=== PATIENT | female | born 1960 | race Caucasian/White ===

== ENCOUNTER 2016-12-19 01:11 | Observation (INO) | payer OTHER ==
[2016-12-19] MEDS ORDERED: Aspirin Low Dose CHEW TAB* 81 MG PO ONE (01:34)
[2016-12-19 02:11] LABS: Hematocrit 31 % (35-47); Hemoglobin 9.3 g/dl (12.0-16.0); Mean Corpuscular HGB Conc 30 g/dl (31-36); Mean Corpuscular Hemoglobin 21 pg (27-31); Mean Corpuscular Volume 71 fL (80-97); Mean Platelet Volume 9 um3 (7.4-10.4); Red Blood Count 4.38 10^6/ul (4.0-5.4); Red Cell Distribution Width 19 % (10.5-15); White Blood Count 8.4 10^3/ul (3.5-10.8)
[2016-12-19 02:19] LABS: Add Diff/Slide Review? Slide Review Added; Comments Flag Yes
[2016-12-19 02:35] LABS: Albumin 3.6 g/dL (3.2-5.2); BUN/Creatinine Ratio 24.4 (8-20); Calcium 9.1 mg/dL (8.6-10.3); EGFR African American 92.7 (>60); EGFR Non-African American 72.1 (>60); Globulin 3.2 g/dL (2-4); Potassium 3.5 mmol/L (3.5-5.0); Total Bilirubin 0.5 mg/dL (0.2-1.0); Total Protein 6.8 g/dL (6.4-8.9)
[2016-12-19 02:48] LABS: Troponin I 0.08 ng/mL (<0.04)
[2016-12-19] MEDS ORDERED: Iohexol 350* (CONTRAST) 500 ML MDV IV ONE (04:39)
[2016-12-19] MEDS ORDERED: Azithromycin IV(*) 500 MG in NS 0.9% 250 ML* 250 ML IVPB ONE (06:32)
[2016-12-19] MEDS ORDERED: cefTRIAXone(*) 1 GM in NS 0.9% 50 ML* 50 ML IVPB ONE (06:32)
--- NOTE | 2016-12-19 07:41 | RAD ---
INDICATION: Chest pain. COMPARISON: Comparison is made with prior study from February 03, 2016. TECHNIQUE: A portable view of the chest was obtained. FINDINGS: The heart appears mildly enlarged. There is mild mediastinal widening which appears unchanged from the prior exam. The lungs are underinflated and grossly clear. No pleural effusion is seen. IMPRESSION: MILD CARDIOMEGALY, UNCHANGED.
[2016-12-19] MEDS: Rivaroxaban TAB(*) 15 MG PO SCH ×3 (08:35→20:58)
--- NOTE | 2016-12-19 08:48 | ADMNOTE ---
Subjective Date of Service: 12/19/16 Interval History: ADMISSION HISTORY AND PHYSICAL EXAM: Allergies Allergy/AdvReac Type Severity Reaction Status Date / Time Buckwheat Allergy Intermediate Rash Verified 02/03/16 19:23 Dust Mite Extract Allergy Intermediate Headache Verified 02/03/16 19:23 Home Medications Medication Instructions Recorded Confirmed Type Lisinopril 10 mg PO DAILY 07/17/14 12/19/16 History Metoprolol Succinate [Toprol Xl] 50 mg PO BID 07/17/14 12/19/16 History Naproxen TAB* [Naprosyn 250 mg 500 mg PO BID PRN 02/03/16 12/19/16 History TAB*] Furosemide [Lasix] 80 mg PO AC #30 tab 02/06/16 12/19/16 Rx Ranitidine TAB (NF) [Zantac TAB 300 mg PO BEDTIME 12/19/16 12/19/16 History (NF)] HPI: The patient was in her usual state of health until about midnight when she developed chest pain, some SOB. She has had a dry cough all winter, no change. No pleuritic component. She called 911. She does not have O2 at home. She used CPAP many years ago but states her machine is very old. She had an appt with the sleep lab this month. She is always sedentary but more so since her patella injury last year. No calf pain or visible enlargement. Family History: Findings - Father of ?PR, mother had HTN Social History: Findings - No alcohol or tobacco use. Lives with her brother Ken Mariano, who is her SDM Past Medical History: Findings - MO, LUIS ANTONIO, LBBB, PE 2004, HTN, GERD, chronic edema, hernia [id number], cholecystectomy, tonsillectomy, Review of Systems - Measurements Intake and Output: Intake and Output Last 24 Hours 12/17/16 12/18/16 12/19/16 12/20/16 06:59 06:59 06:59 06:59 Weight 350 lb - Review of Systems Constitutional Symptoms: Negative: Weight Gain, Weight Loss, Weakness, Fatigue, Fever, Night Sweats, Unexplained Falls, Other Dermatology: Positive: Normal HEENT: Positive: Normal Eyes: Positive: Normal Thyroid: Positive: Normal Pulmonary: Positive: Cough, Shortness of Breath, Other - LUIS ANTONIO Cardiology: Positive: Chest Pain Gastroenterology: Positive: Normal Genital - Urinary: Positive: Normal Genitourinay - Female: Positive: Other - menometrorrhagia, 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 Musculoskeletal: Positive: Joint Pain Endocrinology: Positive: Obesity Hematologic/Lymphatic: Positive: Anemia Neurology: Positive: Normal Psychiatry: Positive: Normal Allergic/Immunologic: Negative: Hx Anaphylaxis, Hx Angioedema, Hx Environmental, Hx Seasonal, Athsma, Hx HIV, Immunocompromise, Swollen Glands LymphNodes, Other Objective Active Medications: Rivaroxaban (Xarelto(*)) 15 mg PO BID TRINITY Last Admin: 12/19/16 08:35 Dose: 15 mg Vital Signs 12/19/16 12/19/16 12/19/16 01:17 01:27 01:28 Temperature 97.3 F Pulse Rate 118 63 Respiratory 20 22 Rate Blood Pressure 129/78 160/64 160/64 (mmHg) O2 Sat by Pulse 100 84 Oximetry 12/19/16 12/19/16 12/19/16 01:30 02:00 02:30 Temperature Pulse Rate 92 80 78 Respiratory 25 22 20 Rate Blood Pressure 148/61 139/65 91/75 (mmHg) O2 Sat by Pulse 95 97 95 Oximetry 12/19/16 12/19/16 12/19/16 03:00 03:30 04:00 Temperature Pulse Rate 97 84 83 Respiratory 24 18 18 Rate Blood Pressure 102/70 103/54 106/66 (mmHg) O2 Sat by Pulse 90 94 96 Oximetry 12/19/16 12/19/16 04:30 05:00 Temperature Pulse Rate 86 87 Respiratory 21 24 Rate Blood Pressure 116/52 105/60 (mmHg) O2 Sat by Pulse 97 92 Oximetry Oxygen Devices in Use Now: Nasal Cannula Appearance: Alert, partly up on ED stretcher. In good spirits. Looks comfortable. Ears/Nose/Mouth/Throat: Clear Oropharnyx, Mucous Membranes Moist Neck: NL Appearance and Movements; NL JVP, No Thyroid Enlargement, Masses Respiratory: Symmetrical Chest Expansion and Respiratory Effort, Clear to Auscultation, Clear to Percussion Abdominal: NL Sounds; No Tenderness; No Distention, No Hepatosplenomegaly, - Extremities: No Edema, No Clubbing, Cyanosis, - Skin: No Rash or Ulcers, No Nodules or Sclerosis, - Neurological: Alert and Oriented x 3, NL Sensation Result Diagrams: 12/19/16 02:00 12/19/16 02:00 Additional Lab and Data: Lab Results 12/19/16 12/19/16 12/19/16 Range/Units 02:00 02:00 02:00 WBC 8.4 (3.5-10.8) 10^3/ul RBC 4.38 (4.0-5.4) 10^6/ul Hgb 9.3 L (12.0-16.0) g/dl Hct 31 L (35-47) % MCV 71 L (80-97) fL MCH 21 L (27-31) pg MCHC 30 L (31-36) g/dl RDW 19 H (10.5-15) % Plt Count 239 (150-450) 10^3/ul MPV 9 (7.4-10.4) um3 Neut % (Auto) 71.2 (38-83) % Lymph % (Auto) 17.3 L (25-47) % [place] % (Auto) 7.1 (1-9) % Eos % (Auto) 3.7 (0-6) % Baso % (Auto) 0.7 (0-2) % Absolute Neuts (auto) 6.0 (1.5-7.7) 10^3/ul Absolute Lymphs (auto) 1.5 (1.0-4.8) 10^3/ul Absolute Monos (auto) 0.6 (0-0.8) 10^3/ul Absolute Eos (auto) 0.3 (0-0.6) 10^3/ul Absolute Basos (auto) 0.1 (0-0.2) 10^3/ul Absolute Nucleated RBC 0.03 10^3/ul Nucleated RBC % 0.3 Sodium 140 (133-145) mmol/L Potassium 3.5 (3.5-5.0) mmol/L Chloride 102 (101-111) mmol/L Carbon Dioxide 31 (22-32) mmol/L Anion Gap 7 (2-11) mmol/L BUN 20 (6-24) mg/dL Creatinine 0.82 (0.51-0.95) mg/dL Est GFR ( Amer) 92.7 (>60) Est GFR (Non-Af Amer) 72.1 (>60) BUN/Creatinine Ratio 24.4 H (8-20) Glucose 120 H (70-100) mg/dL Lactic Acid 1.6 (0.5-2.0) mmol/L Calcium 9.1 (8.6-10.3) mg/dL Total Bilirubin 0.50 (0.2-1.0) mg/dL AST 12 L (13-39) U/L ALT 11 (7-52) U/L Alkaline Phosphatase 57 (34-104) U/L Troponin I 0.08 H* (<0.04) ng/mL Total Protein 6.8 (6.4-8.9) g/dL Albumin 3.6 (3.2-5.2) g/dL Globulin 3.2 (2-4) g/dL Albumin/Globulin Ratio 1.1 (1-3) Assess/Plan/Problems-Billing Assessment: - Patient Problems (1) Pulmonary emboli Current Visit: Yes Status: Acute Code(s): I26.99 - OTHER PULMONARY EMBOLISM WITHOUT ACUTE COR PULMONALE SNOMED Code(s): 22008924 Comment: Start rivaroxaban, likely will need for life as this is second unprovoked episode, doubt she will become significantly less sedentary in the future. Likely chronic PE, has dilated PA. Echo 12/20. (2) HTN (hypertension) Current Visit: No Status: Chronic Priority: Medium Code(s): I10 - ESSENTIAL (PRIMARY) HYPERTENSION SNOMED Code(s): 53983474 Comment: Cont outpatient meds (3) Morbid obesity Current Visit: Yes Status: Acute Code(s): E66.01 - MORBID (SEVERE) OBESITY DUE TO EXCESS CALORIES SNOMED Code(s): 280737535 Comment: BMI 64.0. Pt has appt with bariatric surgeon in [place]. (4) LUIS ANTONIO (obstructive sleep apnea) Current Visit: Yes Status: Acute Code(s): G47.33 - OBSTRUCTIVE SLEEP APNEA ( ADULT) (PEDIATRIC) SNOMED Code(s): 97442928 Comment: I encouraged pt to keep her appt at the sleep lab this month.
--- NOTE | 2016-12-19 08:51 | RAD ---
INDICATION: Pleuritic chest pain. COMPARISON: Comparison is made with a prior CT angiogram of the chest from October 21, 2015. TECHNIQUE: A CT angiogram of the chest was performed with intravenous following intravenous injection of 88 ml of Omnipaque 350 nonionic contrast. Contiguous axial sections were obtained from the lung apices through the lung bases. Images were reconstructed in the coronal and sagittal planes. FINDINGS: There is enlargement of the central pulmonary arteries suggestive of pulmonary artery hypertension. This has progressed from the prior study. In addition, there are intraluminal filling defects in the distal right main, right interlobar artery, right upper lobe segmental arteries and several bilateral lower lobe subsegmental arteries. There are also filling defects within the right middle lobe segmental arteries. These findings would be consistent with multiple bilateral pulmonary emboli. The study is limited due to the patient's body habitus and beam hardening artifact. The heart is within normal limits in size. No pericardial effusion is present. The thoracic aorta is normal in caliber and demonstrates homogeneous contrast opacification. No significant enlarged mediastinal or hilar lymph nodes are seen. There is a nodule in the left thyroid lobe measuring 3.0 x 1.9 cm in size which appears slightly enlarged from the prior exam. Recommend a follow-up thyroid ultrasound for further evaluation. There are patchy infiltrates present right middle and lower lobes. No pleural effusion or pneumothorax is seen. A portion of the upper abdomen is visualized. The liver and spleen appear enlarged. The patient is status post gastric bypass surgery. No significant focal osseous abnormality is seen. The results of this exam were discussed with Dr. Anne. IMPRESSION: 1. MULTIPLE BILATERAL PULMONARY EMBOLI. 2. FINDINGS CONSISTENT WITH PULMONARY ARTERY HYPERTENSION. 3. SMALL RIGHT MIDDLE AND LOWER LOBE INFILTRATES. 4. NODULE IN THE LEFT THYROID LOBE. RECOMMEND A FOLLOW-UP THYROID ULTRASOUND FOR FURTHER EVALUATION. 5. HEPATOSPLENOMEGALY.
[2016-12-19] MEDS: Acetaminophen TAB* 325 MG PO PRN ×2 (10:33→20:57)
[2016-12-19] MEDS: Famotidine TAB* 20 MG PO SCH ×2 (10:33→20:57)
[2016-12-19] MEDS: Naproxen TAB* 250 MG PO SCH ×2 (10:33→20:57)
[2016-12-19] MEDS: Furosemide TAB* 40 MG PO SCH (10:33)
[2016-12-19] MEDS: Lisinopril TAB* 10 MG PO SCH (10:34)
[2016-12-19] MEDS: Metoprolol Succinate XL TAB* 25 MG PO SCH ×2 (10:34→20:57)
[2016-12-19] MEDS: Nystatin TOP POWDER* 15 GM BTL TOPICAL SCH (20:59)
[2016-12-19] MEDS ORDERED: Melatonin (NF) 3 MG TAB PO PRN (23:40)
[2016-12-20] MEDS: Rivaroxaban TAB(*) 15 MG PO SCH (08:28)
[2016-12-20] MEDS: Lisinopril TAB* 10 MG PO SCH (08:29)
[2016-12-20] MEDS: Metoprolol Succinate XL TAB* 25 MG PO SCH (08:29)
[2016-12-20] MEDS: Nystatin TOP POWDER* 15 GM BTL TOPICAL SCH (08:29)
[2016-12-20] MEDS: Acetaminophen TAB* 325 MG PO PRN (08:29)
[2016-12-20] MEDS: Famotidine TAB* 20 MG PO SCH (08:29)
[2016-12-20] MEDS: Furosemide TAB* 40 MG PO SCH (08:29)
[2016-12-20] MEDS: Naproxen TAB* 250 MG PO SCH (09:42)
--- NOTE | 2016-12-20 11:16 | ECHO ---
Patient: NICKIE BROWN [facility] Rec#: [id number] : 1960 Date: 12/20/2016 Age: 56y Height: 160.02 cm / 63.0 in Weight: 158.76 kg / 349.9 lbs Sex: F BSA: 2.45 Room#: 452 Admit Date#: 12/19/2016 Type: Inpatient Referring: Michele Anne MD Reading: Leidy Spencer MD Lung Gun Operator: Barbra Flaherty PABLO CC: Ken Monroe MD Transthoracic Echocardiogram Indication: PE BP: 90/47 HR: 72 Rhythm: NSR Findings History: PE, MO,LUIS ANTONIO,GERD,HTN,chronic edema. Study done with pt OOB in a chair. Technical Comments: The study is technically limited due to patient body habitus. Completed at 1052. The study is technically limited due to the patient's smoking history. Left Ventricle: The left ventricular chamber size is normal. Mild to moderate concentric left ventricular hypertrophy is observed. There is normal left ventricular systolic function. The estimated ejection fraction is 55-60%. closer to 55% Abnormal left ventricular diastolic function is observed. Left Atrium: The left atrial chamber size is normal. Right Ventricle: The right ventricular cavity size is normal. The right ventricular global systolic function is mildly reduced. Right Atrium: The right atrium is not well visualized. Aortic Valve: The aortic valve is trileaflet. There is no evidence of aortic regurgitation. There is no evidence of aortic stenosis. Mitral Valve: There is a trace of mitral regurgitation. There is no evidence of mitral stenosis. Tricuspid Valve: The tricuspid valve leaflets are normal. There is mild tricuspid regurgitation. There is evidence of mild pulmonary hypertension. There is no tricuspid stenosis. Pulmonic Valve: The pulmonic valve appears normal. There is mild pulmonic regurgitation. There is no pulmonic stenosis. Pericardium: A pericardial fat pad is visualized. Aorta: There is no dilatation of the ascending aorta. There is no dilatation of the aortic arch. There is no dilation of the aortic root. Venous: The venous system is not well visualized. Summary: There are no significant changes when compared to the previous study done on Conclusions The study is technically limited due to patient body habitus. Completed at 1052. The left ventricular chamber size is normal. Mild to moderate concentric left ventricular hypertrophy is observed. The estimated ejection fraction is 55-60%. closer to 55% Abnormal left ventricular diastolic function is observed. There is a trace of mitral regurgitation. There is mild tricuspid regurgitation. There is evidence of mild pulmonary hypertension. There is mild pulmonic regurgitation. The right ventricular global systolic function is mildly reduced. Measurements Name Value Normal Range RVIDd (AP) 2D 3.2 cm (0.9 - 2.6) RVDdMajor (2D) 3.7 cm (2.2 - 4.4) IVSd (2D) 1.4 cm (0.6 - 1) LVPWd (2D) 1.3 cm (0.6 - 1) LVIDd (2D) 3.8 cm (3.6 - 5.4) LVIDs (2D) 2 cm - LV FS (2D) 28 % (25 - 45) Aortic Annulus 1.7 cm (1.4 - 2.6) Ao root diameter (2D) 3.1 cm (2.1 - 3.5) Ascending Ao 2.9 cm (2.1 - 3.4) Aortic arch 2.2 cm (1.8 - 3.4) Descending Ao 0.9 cm - LA dimension (AP) 2D 3.2 cm (2.3 - 3.8) Name Value Normal Range MV E-wave Vmax 0.7 m/sec - MV deceleration time 263 msec - MV A-wave Vmax 1 m/sec - MV E:A ratio 0.63 ratio - LV septal e' Vmax 0.1 m/sec - LV lateral e' Vmax 0.1 m/sec - LV E:e' septal ratio 7 ratio - LV E:e' lateral ratio 7 ratio - Name Value Normal Range AV Vmax 1.5 m/sec - AV VTI 27.1 cm - AV peak gradient 9.22 mmHg - AV mean gradient 4.76 mmHg - Name Value Normal Range TR Vmax 2.9 m/sec - TR peak gradient 34 mmHg - RAP 8 mmHg - RVSP 42 mmHg - Name Value Normal Range PV Vmax 0.9 m/sec - PV peak gradient 3.12 mmHg -
[2016-12-20 11:31] VITALS: BP 104/76
--- NOTE | 2016-12-21 05:51 | DS ---
CC: Dr. Collado DISCHARGE SUMMARY: DATE OF ADMISSION: 12/19/16 DATE OF DISCHARGE: 12/20/16 HOSPITAL COURSE: This 56-year-old woman presenting with chest pain and shortness of breath, CTA showed multiple pulmonary emboli, which are chronic. Based on her clinical history as well, it was noted that her pulmonary artery was large in diameter. The patient was started on rivaroxaban. She was admitted to a telemetry unit. She did have a brief episode of bradycardia at 4 in the morning, heart rate down to 37. She was asymptomatic. I suspect this was related to her sleep apnea. She does have an appointment to go to the sleep lab later this month. I told her it was very important that she keep that appointment. She said she has an old CPAP machine at home, but does not know how to change the settings and was uncomfortable using it because of her lack of knowledge. The patient described very heavy menses, likely because of her iron deficiency. She has an appointment to see a child guidance counselor later this month as well. I started her on ferrous sulfate. She will stop her naproxen and use acetaminophen instead to control her back pain and knee pain. Echocardiogram showed only mild RV dysfunction and mild PHTN while the CT showed enlargement of the pulmonary artery. FINAL DIAGNOSES: 1. Multiple pulmonary emboli, likely chronic. I recommend indefinite use of anticoagulation as this is her second unprovoked episode. 2. Hypertension. Her lisinopril dose has been decreased to 5 mg daily. 3. Morbid obesity. 4. Osteoarthritis. The patient will use acetaminophen in place of naproxen. 5. Obstructive sleep apnea. The patient was strongly encouraged to keep her appointment with the sleep lab. DISCHARGE MEDICATIONS: 1. Nystatin powder apply to skin folds b.i.d. 2. Rivaroxaban 15 mg b.i.d. for 20 days and then 20 mg daily. 3. Lisinopril 5 mg daily. 4. Acetaminophen 1000 mg 2 to 3 times daily. 5. Metoprolol succinate 50 mg b.i.d. 6. Furosemide 80 mg daily before a meal. 7. Ranitidine 300 mg at h.s. 8. Ferrous gluconate 240 mg daily. [id number]/[facility] #: [id number] [facility]
== END 2016-12-20 14:50 | disposition home or self-care (01) ==
LOC: ED 01:11 → MEDTELE 08:55
PROVIDERS: ADMIT Internal Medicine; ATTEND Internal Medicine
DX: I26.99 Other pulmonary embolism without acute cor pulmonale (principal); I10 Essential (primary) hypertension; E66.01 Morbid (severe) obesity due to excess calories; G47.33 Obstructive sleep apnea (adult) (pediatric); M19.90 Unspecified osteoarthritis, unspecified site; R16.2 Hepatomegaly with splenomegaly, not elsewhere classified; E04.1 Nontoxic single thyroid nodule; I51.7 Cardiomegaly; R94.31 Abnormal electrocardiogram [ECG] [EKG]; Z79.899 Other long term (current) drug therapy
CPT/HCPCS: 36415; 71010; 71275; 80053; 83605; 83880; 84484; 85025; 93005; 93306; 94760; 99284; A9270-GY; G0378; J0456; J0696; Q9967

== ENCOUNTER 2016-12-23 12:39 | Emergency (ER) | payer OTHER ==
[2016-12-23 13:19] LABS: Hematocrit 30 % (35-47); Hemoglobin 9.1 g/dl (12.0-16.0); Mean Corpuscular HGB Conc 30 g/dl (31-36); Mean Corpuscular Hemoglobin 21 pg (27-31); Mean Corpuscular Volume 70 fL (80-97); Mean Platelet Volume 9 um3 (7.4-10.4); Red Blood Count 4.32 10^6/ul (4.0-5.4); Red Cell Distribution Width 20 % (10.5-15); White Blood Count 6.7 10^3/ul (3.5-10.8)
[2016-12-23 13:22] LABS: Comments Flag Yes
[2016-12-23 13:23] LABS: Add Diff/Slide Review? Slide Review Added
[2016-12-23 13:34] LABS: Albumin 3.6 g/dL (3.2-5.2); BUN/Creatinine Ratio 23.5 (8-20); Calcium 9.1 mg/dL (8.6-10.3); EGFR African American 94.1 (>60); EGFR Non-African American 73.1 (>60); Globulin 3.3 g/dL (2-4); Potassium 3.5 mmol/L (3.5-5.0); Total Bilirubin 0.6 mg/dL (0.2-1.0); Total Protein 6.9 g/dL (6.4-8.9)
--- NOTE | 2016-12-23 13:37 | RAD ---
INDICATION: Chest pain. COMPARISON: Comparison is made with a prior chest x-ray study from December 19, 2016. TECHNIQUE: A portable view of the chest was obtained. FINDINGS: The heart is mildly enlarged and unchanged from the prior exam. The lungs are underinflated and there is a small infiltrate at the right lung base. IMPRESSION: SMALL RIGHT BASILAR INFILTRATE.
[2016-12-23 13:47] LABS: Troponin I 0.04 ng/mL (<0.04)
[2016-12-23 14:02] LABS: T4 10.47 g/dL (6.09-12.23)
[2016-12-23 14:03] LABS: TSH (Thyroid Stimulating Horm) 0.79 mcIU/mL (0.34-5.60)
[2016-12-23 14:05] LABS: Eosinophils % 2 % (0-6); Hypochromasia 1+; Microcytosis 2+; Neutrophil % 82 % (38-83); Polychromasia 1+
[2016-12-23 14:09] LABS: Urine Bacteria Absent (Absent); Urine Bilirubin Negative (Negative); Urine Glucose Negative (Negative); Urine Nitrite Negative (Negative)
[2016-12-23 15:48] VITALS: BP 129/61
--- NOTE | 2016-12-23 17:17 | ED ---
Dae Parra Billy, scribed for Raffaele Ariza MD on 12/23/16 at 1328 . HPI Chest Pain - HPI Summary HPI Summary: Patient is 56 year-old female coming to [facility] for evaluation of midsternal and right anterior chest pain and SOB for the last 5 days. She reports pain severity 5/10 that is better with rest, worst with exertion. She is nauseated and has intermittent chils, but she denies any diaphoresis. Patient was discharged on 12/20/16 with a diagnosis of multiple, chronic pulmonary emboli. Patient states that for the last 2 days, she has not had access to her Xarelto and has not taken any. - History of Current Complaint Chief Complaint: EDChestPainROMI Time Seen by Provider: 12/23/16 12:43 Hx Obtained From: Patient Onset/Duration: Started Days Ago, Still Present Timing: Constant Initial Severity: Moderate Current Severity: Moderate Pain Intensity: 5 Pain Scale Used: 0-10 Numeric Chest Pain Location: Mid Sternal, Right Anterior Aggravating Factor(s): Exertion Alleviating Factor(s): Rest Associated Signs and Symptoms: Positive: Chest Pain, Shortness of Breath, Chills , Nausea. Negative: Diaphoresis - Additional Pertinent History Primary Care Physician: [id number] - Allergy/Home Medications Allergies/Adverse Reactions: Allergies Allergy/AdvReac Type Severity Reaction Status Date / Time Buckwheat Allergy Intermediate Rash Verified 02/03/16 19:23 Dust Mite Extract Allergy Intermediate Headache Verified 02/03/16 19:23 Home Medications: Home Medications Furosemide TAB* [Lasix TAB*] 80 mg PO DAILY 12/23/16 [History Confirmed 12/23/16 ] Metoprolol Tartrate TAB* [Lopressor TAB*] 100 mg PO DAILY 12/23/16 [History Confirmed 12/23/16] PMH/Surg Hx/FS Hx/Imm Hx Endocrine/Hematology History: Denies: Hx Diabetes Cardiovascular History: Reports: Hx Angina, Hx Embolism, Hx Hypertension, 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; tricuspid gisele disease, Other Cardiovascular Problems/Disorders - left BBB, chronic edema Denies: Hx Congestive Heart Failure Respiratory History: Reports: Hx Asthma, Hx Pulmonary Embolism, Hx Sleep Apnea, Other Respiratory Problems/Disorders - PE hx 2004 [facility] GI History: Reports: Hx Gall Bladder Disease - removed, Hx Gastroesophageal Reflux Disease, Other GI Disorders - stomach stapled History: Denies: Hx Renal Disease Musculoskeletal History: Reports: Hx Back Problems, Other Musculoskeletal History - chronic knee pain Sensory History: Reports: Hx Contacts or Glasses Denies: Hx Hearing Aid Opthamlomology History: Reports: Hx Contacts or Glasses Neurological History: Denies: Other Neuro Impairments/Disorders - Surgical History Surgery Procedure, Year, and Place: CARDIAC CATH, TONSILECTOMY, , RIGHT ABD HERNIA REPAIR X3, STOMACH STAPLING, CHOLECYSTECTOMY - Immunization History Date of Tetanus Vaccine: Unk Date of Influenza Vaccine: None Infectious Disease History: No Infectious Disease History: Denies: Traveled Outside the [place] in Last 30 Days - Family History Known Family History: Positive: Cardiac Disease - father with [place] and in 's, Hypertension - father - Social History Alcohol Use: Rare Substance Use Type: Reports: None Hx Tobacco Use: No Smoking Status (MU): Former Smoker Type: Cigarettes Have You Smoked in the Last Year: No Review of Systems Positive: Chills. Negative: Fever, Skin Diaphoresis Positive: Chest Pain Positive: Shortness Of Breath Positive: Nausea All Other Systems Reviewed And Are Negative: Yes Physical Exam - Summary Physical Exam Summary: VITAL SIGNS: Reviewed. GENERAL: Patient is an obese, well developed, and nourished female who is lying comfortable in the stretcher. Patient is not in any acute respiratory distress or respiratory distress. She is speaking in full sentences. HEAD AND FACE: Normocephalic EYES: PERRLA, EOMI x 2. EARS: Hearing grossly intact. MOUTH: Oropharynx within normal limits. NECK: Supple, trachea is midline, no adenopathy, no JVD, no carotid bruit. CHEST: Symmetric, no tenderness at palpation LUNGS: Clear to auscultation bilaterally. No wheezing or crackles. CVS: Regular rate and rhythm, S1 and S2 present, no murmurs or gallops appreciated. ABDOMEN: Soft, non-tender. Bowel sounds are normal. No abdominal abnormal pulsations. EXTREMITIES: Full ROM in all major joints, no edema, no cyanosis or clubbing. NEURO: Alert and oriented x 3. No acute neurological deficits. Speech is normal and follows commands. SKIN: Dry and warm Triage Information Reviewed: Yes Vital Signs On Initial Exam: Initial Vitals Temp Pulse Resp BP Pulse Ox 98.1 F 90 16 140/80 100 12/23/16 12:49 12/23/16 12:49 12/23/16 12:49 12/23/16 12:49 12/23/16 12:49 Vital Signs Reviewed: Yes - [place] Coma Scale Coma Scale Total: 15 Diagnostics - Vital Signs Vital Signs Temp Pulse Resp BP Pulse Ox 12/23/16 13:14 98.3 F 71 18 138/61 100 12/23/16 13:04 100 12/23/16 13:00 95 91 12/23/16 12:56 92 95 12/23/16 12:55 94 97 12/23/16 12:52 140/80 12/23/16 12:49 98.1 F 90 16 140/80 100 - Laboratory Lab Results: Lab Results 12/23/16 Range/Units 13:05 WBC 6.7 (3.5-10.8) 10^3/ul RBC 4.32 (4.0-5.4) 10^6/ul Hgb 9.1 L (12.0-16.0) g/dl Hct 30 L (35-47) % MCV 70 L (80-97) fL MCH 21 L (27-31) pg MCHC 30 L (31-36) g/dl RDW 20 H (10.5-15) % Plt Count 220 (150-450) 10^3/ul MPV 9 (7.4-10.4) um3 Neut % (Auto) 75.3 (38-83) % Lymph % (Auto) 13.9 L (25-47) % [place] % (Auto) 6.7 (1-9) % Eos % (Auto) 3.2 (0-6) % Baso % (Auto) 0.9 (0-2) % Absolute Neuts (auto) 5.1 (1.5-7.7) 10^3/ul Absolute Lymphs (auto) 0.9 L (1.0-4.8) 10^3/ul Absolute Monos (auto) 0.4 (0-0.8) 10^3/ul Absolute Eos (auto) 0.2 (0-0.6) 10^3/ul Absolute Basos (auto) 0.1 (0-0.2) 10^3/ul Absolute Nucleated RBC 0.02 10^3/ul Nucleated RBC % 0.2 Result Diagrams: 12/23/16 13:05 12/23/16 13:05 Lab Statement: Any lab studies that have been ordered have been reviewed, and results considered in the medical decision making process. - Radiology CXR Radiology Interpretation Completed By: Radiologist - Small right basilar infiltrate. - EKG 1319 EKG Interpretation: NSR 92 bpm, no ST elevation Re-Evaluation - Re-Evaluation First Eval Re-Evaluation Time: 17:07 Comment: Plan for discharge reviewed and discussed with the patient. Chest Pain Course/Dx - Course Assessment/Plan: Patient is 56 year-old female coming to [facility] for evaluation of midsternal and right anterior chest pain and SOB for the last 5 days. She reports pain severity 5/10 that is better with rest, worst with exertion. She is nauseated and has intermittent chils, but she denies any diaphoresis. Patient was discharged on 12/20/16 with a diagnosis of multiple, chronic pulmonary emboli. Patient states that for the last 2 days, she has not had access to her Xarelto and has not taken any. Test results show H&H of 9.1/30 which is similar to previous bloodwork on 12/19/16. CMP WNL except for chloride 99 , CO2 34, glucose 117, and troponin 0.04. UA negative for UTI. In the ED course , we noticed that the patient has decreased H&H compared to September 2015. Therefore, I decided to do rectal exam to see if she has any occult blood. Guaiac is negative at this point. I discussed the case with Dr. Cheung, and she believes the CP is secondary to the pulmonary embolus which currently is being treated with Xarelto. She has not been taking the Xarelto for the last 2 days but started again this morning, so Dr. Cheung recommended for the patient to be discharged home to follow up with PCP. I also repeated the second troponin , 0.04, which is much improved from 12/19/16. She is hemodynamically stable, A& Ox3. Patient care was discussed with the patient's daughter, who is a respiratory therapist at [facility]. It was explained that the patient has no criteria for admission. The daughter is comfortable with the plan for discharge as long as the patient has access to medications for the pulmonary embolus. I discussed all the findings and test results with the patient. Patient was instructed to return to the emergency room immediately if any of the symptoms return or worsens. Plan of care was discussed with the patient and understands and agrees. All questions were answered at patient satisfaction. There were no further complaints or concerns. Lung exam before discharge: CTA B /L. Good air exchange. No wheezing or crackles heard. CVS: S1 and S2 present. No murmurs appreciated. Patient is alert and oriented x 3. Patient is hemodynamically stable. 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 Cheung (hospitalist) recommends discharge. Discharge - Discharge Plan Condition: Stable Disposition: HOME Patient Education Materials: Pulmonary Embolism (GEN), Chest Pain (ED) Referrals: Alan Collado MD [Primary Care Provider] - The documentation as recorded by the Dae steve Billy accurately reflects the service I personally performed and the decisions made by , Raffaele Ariza MD.
== END 2016-12-23 17:27 | disposition home or self-care (01) ==
LOC: ED 12:39
DX: I26.99 Other pulmonary embolism without acute cor pulmonale (principal); R07.9 Chest pain, unspecified; R91.8 Other nonspecific abnormal finding of lung field; R06.02 Shortness of breath; R11.0 Nausea; R68.83 Chills (without fever); Z87.891 Personal history of nicotine dependence
CPT/HCPCS: 36415; 71010; 80053; 81003; 81015; 82270; 82550; 82553; 83605; 83735; 83880; 84436; 84443; 84484; 85025; 85730; 87077; 87086; 87186; 93005; 99283

== ENCOUNTER 2017-01-03 15:48 | Inpatient (IN) | payer OTHER ==
[2017-01-03 16:40] LABS: Hematocrit 24 % (35-47); Hemoglobin 7.2 g/dl (12.0-16.0); Mean Corpuscular HGB Conc 31 g/dl (31-36); Mean Corpuscular Hemoglobin 21 pg (27-31); Mean Platelet Volume 9 um3 (7.4-10.4); Red Blood Count 3.45 10^6/ul (4.0-5.4); Red Cell Distribution Width 20 % (10.5-15); White Blood Count 8.4 10^3/ul (3.5-10.8)
[2017-01-03 16:41] LABS: Comments Flag Yes; Mean Corpuscular Volume 68 fL (80-97)
[2017-01-03 16:52] LABS: Albumin 3.4 g/dL (3.2-5.2); BUN/Creatinine Ratio 16.9 (8-20); Calcium 9.1 mg/dL (8.6-10.3); EGFR African American 99.7 (>60); EGFR Non-African American 77.5 (>60); Potassium 3.2 mmol/L (3.5-5.0); Total Bilirubin 0.4 mg/dL (0.2-1.0); Total Protein 6.4 g/dL (6.4-8.9)
[2017-01-03 16:54] LABS: Troponin I 0.01 ng/mL (<0.04)
[2017-01-03] MEDS ORDERED: Iohexol 350* (CONTRAST) 500 ML MDV IV ONE (16:56)
--- NOTE | 2017-01-03 17:38 | RAD ---
HISTORY: Shortness of breath COMPARISONS: December 19, 2016 TECHNIQUE: Multiple contiguous axial CT scans of the chest were obtained after the administration of nonionic intravenous contrast, timed to the pulmonary arterial phase of contrast enhancement.. Coronal and sagittal multiplanar reformations are also submitted for review. FINDINGS: NECK AND THYROID: The thyroid gland is enlarged with a persistent left thyroid nodule. CHEST WALL: There is no lower cervical, axillary, or supraclavicular lymphadenopathy by size criteria. HEART AND PERICARDIUM: The heart is unremarkable. AORTA AND PULMONARY VASCULATURE: There is enlargement of the pulmonary artery with selective aorta. Again noted are multiple pulmonary arterial filling defects at the lobar and segmental branches. The clot. In a similar to slightly decreased compared to December 19, 2016. MEDIASTINUM: There is no mediastinal lymphadenopathy by size criteria. SURJIT: There is no hilar lymphadenopathy by size criteria. AIRWAY AND ESOPHAGUS: The airway is unremarkable, without endobronchial filling defect. The esophagus is grossly normal. LUNG PARENCHYMA: There is improved aeration of the right lung. There is a 0.5 cm nodule right lower lobe on axial image 32. This area was obscured on the previous examination. PLEURA: No pleural abnormalities are noted. UPPER ABDOMEN: There is post surgical change to the upper GI tract. The spleen appears enlarged. There is fatty infiltration of the liver. BONES AND SOFT TISSUES: No bone or soft tissue abnormalities are noted. OTHER: None. IMPRESSION: 1. AGAIN NOTED ARE MULTIPLE BILATERAL PULMONARY EMBOLI. THE CLOT BURDEN IS SIMILAR TO SLIGHTLY DECREASED COMPARED TO DECEMBER 19, 2016. 2. THERE IS ENLARGEMENT OF THE MAIN PULMONARY ARTERY SUGGESTIVE OF PULMONARY ARTERIAL HYPERTENSION. 3. 0.5 CM NODULE OF THE RIGHT LOWER LOBE. 4. SPLENOMEGALY. 5. FATTY INFILTRATION OF THE LIVER. 6. AGAIN NOTED IS LEFT THYROID NODULE. RECOMMEND CORRELATION WITH DEDICATED IMAGING OF THE THYROID IN THE NONACUTE SETTING. 7. THE RECOMMENDATIONS FOR FOLLOWUP AND MANAGEMENT OF AN INCIDENTALLY DETECTED PULMONARY NODULE GREATER THAN 4 MM BUT LESS THAN OR EQUAL TO 6 MM IN SIZE, IN A PATIENT WITHOUT A HISTORY OF MALIGNANCY, INCLUDE FOLLOWUP CT IN 12 MONTHS FOR A LOW-RISK PATIENT OR FOLLOWUP CT IN 6-12 MONTHS, THEN AGAIN AT 18-24 MONTHS FOR A HIGH RISK PATIENT. NOTES: SIZE = AVERAGE LENGTH AND WIDTH; HIGH RISK IS DEFINED A HISTORY OF SMOKING OR OTHER KNOW RISK FACTORS FOR LUNG CANCER; LOW RISK IS DEFINED MINIMAL OR ABSENT HISTORY OF SMOKING OR OTHER KNOWN RISK FACTORS. NODULES WITH A GROUND GLASS COMPONENT MAY REQUIRE LONGER FOLLOW UP TO EXCLUDE INDOLENT ADENOCARCINOMA.
[2017-01-03] MEDS ORDERED: Heparin VIAL(*) 5000 UNITS/ML VIAL (FIVE THOUSAND) IV SCH (19:00)
[2017-01-03] MEDS ORDERED: Heparin DRIP 25,000 UNITS(*) 25,000 UNITS/500 ML BAG ONE (19:16)
[2017-01-03] MEDS: Heparin DRIP 25,000 UNITS(*) 25,000 UNITS/500 ML BAG IV SCH (19:20)
--- NOTE | 2017-01-03 22:00 | ED ---
Tonia Parra Janilya, scribed for Lamonte Pérez MD on 01/03/17 at 1635 . Shortness of Breath - HPI Summary HPI Summary: A 56 y/o female came in to [facility] presenting w/ a gradual onset of constant SOB starting yesterday. 2 weeks ago pt was diagnosed w/ PE, for which she was given Xarelto. Her condition improved since taking the medication. However, since yesterday, pt has been having difficulty breathing w/o any other significant changes. Pt denies pedal edema. - History of Current Complaint Chief Complaint: EDShortnessOfBreath Time Seen by Provider: 01/03/17 15:58 Hx Obtained From: Patient Onset/Duration: Gradual Onset, Lasting Days, Still Present Timing: Constant Current Severity: Moderate Aggrevating Factors: Nothing Alleviating Factors: Nothing - Allergy/Home Medications Allergies/Adverse Reactions: Allergies Allergy/AdvReac Type Severity Reaction Status Date / Time Buckwheat Allergy Intermediate Rash Verified 02/03/16 19:23 Dust Mite Extract Allergy Intermediate Headache Verified 02/03/16 19:23 PMH/Surg Hx/FS Hx/Imm Hx Previously Healthy: Yes Endocrine/Hematology History: Denies: Hx Diabetes Cardiovascular History: Reports: Hx Angina, Hx Embolism, Hx Hypertension, 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; tricuspid gisele disease, Other Cardiovascular Problems/Disorders - left BBB, chronic edema Denies: Hx Congestive Heart Failure Respiratory History: Reports: Hx Asthma, Hx Pulmonary Embolism, Hx Sleep Apnea, Other Respiratory Problems/Disorders - PE hx 2005 [facility] GI History: Reports: Hx Gall Bladder Disease - removed, Hx Gastroesophageal Reflux Disease, Other GI Disorders - stomach stapled History: Denies: Hx Renal Disease Musculoskeletal History: Reports: Hx Back Problems, Other Musculoskeletal History - chronic knee pain Sensory History: Reports: Hx Contacts or Glasses Denies: Hx Hearing Aid Opthamlomology History: Reports: Hx Contacts or Glasses Neurological History: Denies: Other Neuro Impairments/Disorders - Surgical History Surgery Procedure, Year, and Place: CARDIAC CATH, TONSILECTOMY, , RIGHT ABD HERNIA REPAIR X3, STOMACH STAPLING, CHOLECYSTECTOMY - Immunization History Date of Tetanus Vaccine: Unk Date of Influenza Vaccine: None Infectious Disease History: No Infectious Disease History: Denies: Traveled Outside the [place] in Last 30 Days - Family History Known Family History: Positive: Cardiac Disease - father with [place] and in 80's, Hypertension - father - Social History Alcohol Use: Rare Substance Use Type: Reports: None Hx Tobacco Use: No Smoking Status (MU): Former Smoker Type: Cigarettes Have You Smoked in the Last Year: No Review of Systems Positive: Shortness Of Breath Negative: Edema - denies pedal edema All Other Systems Reviewed And Are Negative: Yes Physical Exam Triage Information Reviewed: Yes Vital Signs On Initial Exam: Initial Vitals Temp Pulse Resp BP Pulse Ox 98.5 F 80 20 154/120 98 01/03/17 15:53 01/03/17 15:53 01/03/17 15:53 01/03/17 15:53 01/03/17 15:53 Vital Signs Reviewed: Yes Appearance: Positive: Well-Appearing, No Pain Distress, Obese - morbidly Skin: Positive: Warm, Skin Color Reflects Adequate Perfusion, Dry Head/Face: Positive: Normal Head/Face Inspection Eyes: Positive: Normal ENT: Positive: Normal ENT inspection Neck: Positive: Supple, Nontender Respiratory/Lung Sounds: Positive: Clear to Auscultation, Breath Sounds Present Cardiovascular: Positive: RRR Abdomen Description: Positive: Nontender, Soft Bowel Sounds: Positive: Present Musculoskeletal: Positive: Normal Neurological: Positive: Normal Psychiatric: Positive: Affect/Mood Appropriate Diagnostics - Vital Signs Vital Signs Temp Pulse Resp BP Pulse Ox 01/03/17 15:57 98.3 F 76 20 119/65 99 01/03/17 15:53 98.5 F 80 20 154/120 98 - Laboratory Lab Results: Lab Results 01/03/17 01/03/17 01/03/17 Range/Units 16:20 16:20 16:20 WBC 8.4 (3.5-10.8) 10^3/ul RBC 3.45 L (4.0-5.4) 10^6/ul Hgb 7.2 L (12.0-16.0) g/dl Hct 24 L (35-47) % MCV 68 L (80-97) fL MCH 21 L (27-31) pg MCHC 31 (31-36) g/dl RDW 20 H (10.5-15) % Plt Count 238 (150-450) 10^3/ul MPV 9 (7.4-10.4) um3 Neut % (Auto) 74.6 (38-83) % Lymph % (Auto) 12.8 L (25-47) % [place] % (Auto) 8.5 (1-9) % Eos % (Auto) 3.4 (0-6) % Baso % (Auto) 0.7 (0-2) % Absolute Neuts (auto) 6.2 (1.5-7.7) 10^3/ul Absolute Lymphs (auto) 1.1 (1.0-4.8) 10^3/ul Absolute Monos (auto) 0.7 (0-0.8) 10^3/ul Absolute Eos (auto) 0.3 (0-0.6) 10^3/ul Absolute Basos (auto) 0.1 (0-0.2) 10^3/ul Absolute Nucleated RBC 0.02 10^3/ul Nucleated RBC % 0.2 APTT (26.0-36.3) seconds Sodium 137 (133-145) mmol/L Potassium 3.2 L (3.5-5.0) mmol/L Chloride 93 L (101-111) mmol/L Carbon Dioxide 38 H (22-32) mmol/L Anion Gap 6 (2-11) mmol/L BUN 13 (6-24) mg/dL Creatinine 0.77 (0.51-0.95) mg/dL Est GFR ( Amer) 99.7 (>60) Est GFR (Non-Af Amer) 77.5 (>60) BUN/Creatinine Ratio 16.9 (8-20) Glucose 137 H (70-100) mg/dL Lactic Acid 2.4 H* (0.5-2.0) mmol/L Calcium 9.1 (8.6-10.3) mg/dL Total Bilirubin 0.40 (0.2-1.0) mg/dL AST 13 (13-39) U/L ALT 10 (7-52) U/L Alkaline Phosphatase 52 (34-104) U/L Troponin I 0.01 (<0.04) ng/mL Total Protein 6.4 (6.4-8.9) g/dL Albumin 3.4 (3.2-5.2) g/dL Globulin 3.0 (2-4) g/dL Albumin/Globulin Ratio 1.1 (1-3) Blood Type Antibody Screen Crossmatch 01/03/17 01/03/17 Range/Units 16:20 16:22 WBC (3.5-10.8) 10^3/ul RBC (4.0-5.4) 10^6/ul Hgb (12.0-16.0) g/dl Hct (35-47) % MCV (80-97) fL MCH (27-31) pg MCHC (31-36) g/dl RDW (10.5-15) % Plt Count (150-450) 10^3/ul MPV (7.4-10.4) um3 Neut % (Auto) (38-83) % Lymph % (Auto) (25-47) % [place] % (Auto) (1-9) % Eos % (Auto) (0-6) % Baso % (Auto) (0-2) % Absolute Neuts (auto) (1.5-7.7) 10^3/ul Absolute Lymphs (auto) (1.0-4.8) 10^3/ul Absolute Monos (auto) (0-0.8) 10^3/ul Absolute Eos (auto) (0-0.6) 10^3/ul Absolute Basos (auto) (0-0.2) 10^3/ul Absolute Nucleated RBC 10^3/ul Nucleated RBC % APTT 38.4 H (26.0-36.3) seconds Sodium (133-145) mmol/L Potassium (3.5-5.0) mmol/L Chloride (101-111) mmol/L Carbon Dioxide (22-32) mmol/L Anion Gap (2-11) mmol/L BUN (6-24) mg/dL Creatinine (0.51-0.95) mg/dL Est GFR ( Amer) (>60) Est GFR (Non-Af Amer) (>60) BUN/Creatinine Ratio (8-20) Glucose (70-100) mg/dL Lactic Acid (0.5-2.0) mmol/L Calcium (8.6-10.3) mg/dL Total Bilirubin (0.2-1.0) mg/dL AST (13-39) U/L ALT (7-52) U/L Alkaline Phosphatase (34-104) U/L Troponin I (<0.04) ng/mL Total Protein (6.4-8.9) g/dL Albumin (3.2-5.2) g/dL Globulin (2-4) g/dL Albumin/Globulin Ratio (1-3) Blood Type A Positive Antibody Screen Negative Crossmatch See Detail Result Diagrams: 01/03/17 16:20 01/03/17 16:20 Lab Statement: Any lab studies that have been ordered have been reviewed, and results considered in the medical decision making process. - CT CTA Chest CT Interpretation: Positive (See Comments) - IMPRESSION: 1. AGAIN NOTED ARE MULTIPLE BILATERAL PULMONARY EMBOLI. THE CLOT BURDEN IS SIMILAR TO SLIGHTLY DECREASED COMPARED TO DECEMBER 19, 2016. 2. THERE IS ENLARGEMENT OF THE MAIN PULMONARY ARTERY SUGGESTIVE OF PULMONARY ARTERIAL HYPERTENSION. 3. 0.5 CM NODULE OF THE RIGHT LOWER LOBE. 4. SPLENOMEGALY. 5. FATTY INFILTRATION OF THE LIVER. 6. AGAIN NOTED IS LEFT THYROID NODULE. RECOMMEND CORRELATION WITH DEDICATED IMAGING OF THE THYROID IN THE NONACUTE SETTING. 7. THE RECOMMENDATIONS FOR FOLLOWUP AND MANAGEMENT OF AN INCIDENTALLY DETECTED PULMONARY NODULE GREATER THAN 4 MM BUT LESS THAN OR EQUAL TO 6 MM IN SIZE, IN A PATIENT WITHOUT A HISTORY OF MALIGNANCY, INCLUDE FOLLOWUP CT IN 12 MONTHS FOR A LOW-RISK PATIENT OR FOLLOWUP CT IN 6-12 MONTHS, THEN AGAIN AT 18-24 MONTHS FOR A HIGH RISK PATIENT. NOTES: SIZE = AVERAGE LENGTH AND WIDTH; HIGH RISK IS DEFINED A HISTORY OF SMOKING OR OTHER KNOW RISK FACTORS FOR LUNG CANCER; LOW RISK IS DEFINED MINIMAL OR ABSENT HISTORYOF SMOKING OR OTHER KNOWN RISK FACTORS. NODULES WITH A GROUND GLASS COMPONENT MAY REQUIRE LONGER FOLLOW UP TO EXCLUDE INDOLENT ADENOCARCINOMA. CT Interpretation Completed By: Radiologist Course/Dx - Course Course Of Treatment: Bettina Jain has had DUB for a few months which has worsened since being started on xarelto for a recent PE. She came in SOB, additional PE's were R/U with CTA and she was found to be significantly anemic. She has a new 'strain' pattern on her ecg and will likely continue to bleed, therefore I asked the hospitalists to see her. - Diagnoses Provider Diagnoses: Severe anemia, Dysfunctional uterine bleeding Discharge - Discharge Plan Condition: Stable Disposition: ADMITTED TO [facility] The documentation as recorded by the Tonia steve Janilya accurately reflects the service I personally performed and the decisions made by me, Lamonte Pérez MD.
[2017-01-03] MEDS ORDERED: Omeprazole CAP* 20 MG PO SCH (23:00)
--- NOTE | 2017-01-04 00:31 | HP ---
HOSPITAL MEDICINE HISTORY AND PHYSICAL: DATE OF ADMISSION: 01/03/17 PRIMARY CARE PHYSICIAN: Dr. Murillo. ATTENDING PHYSICIAN: Dr. Soria* (dictation provided by Whit Ordoñez NP) CHIEF COMPLAINT: Lightheadedness and shortness of breath. HISTORY OF PRESENT ILLNESS: Ms. Jain is a 56-year-old female with a past medical history of recent diagnosis of pulmonary embolism on 12/19/16 as well as obstructive sleep apnea not on CPAP, morbid obesity, hypertension, and abnormal uterine bleeding who presents today to the hospital with concern for lightheadedness and shortness of breath. Ms. Jain was originally diagnosed with a pulmonary embolism on 12/19/16. She was discharged the following day on Xarelto therapy. The patient states she was initially doing okay, but then as of yesterday she began to feel lightheaded and short of breath. She reports that she has had ongoing abnormal uterine bleeding for quite some time. She states this started in her 40s and she was managed at [facility] with hormone therapy. She states with that she had no menses. About 5 years ago, she states that she was told that she needed to discontinue her hormone therapy as she has "been on it too long." The patient states that she immediately had a return of heavy uterine bleeding. She describes to me having a period from mid September all the way through November with multiple soaked pads every 2 to 3 hours. She states that her period had finally ended by the time she came in with pulmonary embolism, but that as soon as she went on the Xarelto therapy, she again started to bleed heavily. She has been filling pads every 1 to 2 hours. She has been noting blood clots. She states that she went to see a provider at [facility], though she is not sure of the person's name. Per her report, the plan had been to start her on hormone therapy immediately and to have an IUD placed and a transvaginal ultrasound on 01/26/17. In the emergency room, Ms. Jain had anemia with hemoglobin of 7.2. Her last hemoglobin on 12/23/16 was 9.1. She has a lactic acid of 2.4. She has EKG, which shows concern for new T-wave inversions and V2 and V3, although there is some suggestion of mild T-wave inversion on previous EKGs. She has a stable blood pressure currently running 119/65. She is not tachycardic, but she is on home beta- jaki. PAST MEDICAL HISTORY: 1. Pulmonary embolism diagnosed on 12/19/16. 2. Abnormal uterine bleeding since age 40. 3. Obstructive sleep apnea, not on home CPAP. 4. Obesity. 5. GERD. 6. Hypertension. 7. Left bundle-branch block. 8. History of hernia repair in 1993. 9. Cholecystectomy. 10. Tonsillectomy. 11. History of at age 24. MEDICATIONS: 1. Tylenol 1000 mg p.o. t.i.d. 2. Ferrous gluconate 240 mg p.o. daily. 3. Nystatin topical b.i.d. 4. Ranitidine 300 mg p.o. at bedtime. 5. Rivaroxaban 20 mg p.o. daily. 6. Furosemide 80 mg p.o. daily. 7. Metoprolol tartrate 100 mg p.o. daily. ALLERGIES: BUCKWHEAT and DUST MITE EXTRACT. FAMILY HISTORY: The patient reports her father likely of an VT, but she is not sure. Her mother is alive and well and has hypertension. SOCIAL HISTORY: No report of tobacco, alcohol, or drug use. She states that her sister, Nya, will be the healthcare proxy. REVIEW OF SYSTEMS: A 14-point review of systems was completed with Ms. Jain and all those not mentioned above were negative. PHYSICAL EXAMINATION GENERAL: Ms. Jain is a morbidly obese female, lying in the bed. She is in no acute distress. VITAL SIGNS: Temperature 98.3, pulse rate 76, respiratory rate 20, O2 saturation 99% on 3 L nasal cannula, blood pressure 119/65. LUNGS: Clear to auscultation bilaterally with no accessory muscle use and good aeration. HEART: S1, S2. No murmur, rub, or gallop and regular. ABDOMEN: Soft, nontender with bowel sounds positive x4. EXTREMITIES: No cyanosis or edema. NEURO: She is alert and oriented x3. She moves all extremities equally. There is no facial asymmetry or focal weakness. Extraocular movements are intact. SKIN: Intact. LABORATORY DATA/DIAGNOSTIC STUDIES: Sodium 137, potassium 3.2, chloride 93, serum bicarbonate 38, BUN 13, creatinine 0.77, glucose 137, lactic acid 2.4. WBC 8.4, hemoglobin 7.2, hematocrit 24, and platelet count 238. PTT is pending. CTA chest/thorax today shows "again noted are multiple bilateral pulmonary emboli. The clot burden is similar to slightly decreased compared to 12/19/16. There is enlargement of the main pulmonary artery suggestive of pulmonary arterial hypertension. 0.5 cm nodule at the right lower lobe. Splenomegaly, fatty infiltration of the liver. Again noted is a left thyroid nodule. Recommend correlation with dedicated imaging of the thyroid" and also EKG shows sinus rhythm with question of new T-wave inversions on V2, V3. ASSESSMENT: Ms. Jain is a 56-year-old female with past medical history of pulmonary embolism started on Xarelto in December 2016 as well as abnormal uterine bleeding who presents today to the hospital with concern for new onset of lightheadedness and shortness of breath, found to be anemic with hemoglobin of 7. PLAN: Our plan is for inpatient admission as I expect her length of stay to be greater than 2 days with the followin. Lightheadedness and shortness of breath with new onset anemia. I suspect this is secondary to her abnormal uterine bleeding. Plans are for the patient to be seen by the printing press operator. They recommended that she have a transvaginal ultrasound for now and Dr. Ibarra will see her tomorrow. I am quite concerned that perhaps the patient has underlying carcinoma as she has abnormal uterine bleeding now in the setting of unprovoked pulmonary emboli. 3. Pulmonary embolism: Plan to switch over to heparin drip in the event that she needs operative intervention or other intervention that will require her to have anticoagulation discontinued for a short period of time. She may need an IVC filter. 4. Hypertension. Continue metoprolol and Lasix. 5. EKG changes. I suspect this is demand ischemia in the setting of anemia. I will cycle her troponins and monitor on the telemetry floor. She did have echocardiogram earlier this month when she came in with her pulmonary emboli. 6. Disposition to telemetry floor based on her EKG changes. 5. DVT prophylaxis with heparin drip. TIME SPENT: Approximately 75 minutes was spent on the admission of this patient , more than half the time spent with her at the bedside reviewing the events leading up to this hospitalization, performing the physical examination, and reviewing my plan of care. WHIT ORDOÑEZ NP CC: Dr. Murillo [id number]/[facility] #: [id number] DIVINA
[2017-01-04 06:22] LABS: Hematocrit 24 % (35-47); Hemoglobin 7.6 g/dl (12.0-16.0); Mean Corpuscular HGB Conc 31 g/dl (31-36); Mean Corpuscular Hemoglobin 22 pg (27-31); Mean Platelet Volume 9 um3 (7.4-10.4); Red Blood Count 3.38 10^6/ul (4.0-5.4); Red Cell Distribution Width 23 % (10.5-15); White Blood Count 8.4 10^3/ul (3.5-10.8)
[2017-01-04 06:29] LABS: Comments Flag Yes
[2017-01-04 06:30] LABS: Add Diff/Slide Review? Slide Review Added; Mean Corpuscular Volume 72 fL (80-97)
[2017-01-04] MEDS ORDERED: Furosemide TAB* 40 MG PO SCH (09:00)
[2017-01-04] MEDS ORDERED: Metoprolol Tartrate TAB* 100 MG TAB PO SCH (09:00)
[2017-01-04] MEDS: Omeprazole CAP* 20 MG PO SCH ×2 (11:01→16:16)
[2017-01-04] MEDS: Metoprolol Tartrate TAB* 25 MG PO SCH ×2 (11:04→22:12)
--- NOTE | 2017-01-04 11:20 | RAD ---
Indication: Abnormal uterine bleeding. Real-time sonography of the pelvis was performed. The uterus measures 9.2 cm in length x 4.9 cm AP x 6.1 cm in width. The endometrial echo measures 5 mm. There is a fibroid in the anterior right uterine body measuring 2.1 x 2.1 x 2.2 cm. The ovaries are not visualized. IMPRESSION: Fibroid in the anterior body of the uterus. Endometrial echo measures 5 mm. The ovaries are not well demonstrated.
[2017-01-04] MEDS: Heparin DRIP 25,000 UNITS(*) 25,000 UNITS/500 ML BAG IV SCH (12:26)
--- NOTE | 2017-01-04 12:37 | PN ---
Progress Note - Progress Note Note: Consultation note Reason for consult: vaginal bleeding with symptomatic anemia HPI: See office note from 01/01/17 for details of longer history and admission note by Whit Ordoñez NP. Pt says she bled more heavily over the weekend and was admitted to [facility] last evening with SOB. She was found to be anemic with Hb of 7 so she has received a blood transfusion. Received 2units overnight and just had a 3rd one started. She is able to ambulate w/out dizziness now. She reports continued moderate vaginal bleeding. See printed office note for complete Medical History Physical exam Gen: pt is lying in the chair, appears slightly out of breath but generally without distress Abd: obese, soft, non-tender Sono: TVUS today revealed only a 5mm endo strip and a small (<2cm) fibroid in the anterior wall of the uterus. Normal appearing ovaries. Labs: Hb 7.6/24 early this am (was 7.2/24 on arrival last evening.) Assessment: Pt is a 56yo perimenopausal woman with heavy vaginal bleeding. It likely is in part related to anovulatory bleeding associated with menopause exacerbated by initiation of anticoagulation therapy in light of her recent history of PEs. The ultrasound is not conclusive but is reassuring of a non- malignant cause since the endometrial lining is relatively thin. Plan: Recommend trying an anticoagulant other than xeralto, as it is more often associated with AUB. Will start pt on oral progestin therapy for immediate management of her bleeding. Pt already has a f/u appt schedule at our office and was planning sono and Mirena IUD insertion. We will try to move this appt up to do a Mirena insertion in the next few weeks. She will continue progestin therapy until that time. An endometrial biopsy can be done at the same time as Mirena insertion. Thank-you for this consult. Please call with any further questions or concerns.
[2017-01-04] MEDS: MEDROXYPROGESTERONE 5 MG PO SCH ×2 (14:02→22:12)
[2017-01-04 15:45] LABS: Hematocrit 24 % (35-47); Hemoglobin 7.5 g/dl (12.0-16.0)
[2017-01-04 15:49] LABS: Comments Flag Yes
[2017-01-04] MEDS: Acetaminophen TAB* 325 MG PO PRN (16:16)
--- NOTE | 2017-01-04 17:30 | PN ---
Progress Note - Progress Note Note: Surgery Note: S: pt is one wk s/p exc of skin tag of the Left inferior abdominal pannus by Dr. Campa. We were asked to see her for suture removal as she was unable to come to the office as scheduled today. No c/o re: the site. O: site as noted above is healing well; no s/sx of infection A/P: s/p skin tag excision of lower abd pannus; sutures removed w/ Tuan Alfredrha , MS3; pt suresh'd well; Bandaid placed and nsg informed. No f/u needed. (No path submitted)
--- NOTE | 2017-01-04 17:49 | PN ---
Subjective Date of Service: 01/04/17 Interval History: Ms. Jain continues to feel weak and lightheaded with standing. She continues to have profuse vaginal bleeding. She denies other complaint including chest pain, SOB, nausea, or abdominal pain. She is tolerating oral intake well. Objective Active Medications: Acetaminophen (Tylenol Tab*) 650 mg PO Q6H PRN PRN Reason: PAIN Last Admin: 01/04/17 16:16 Dose: 650 mg Heparin Sodium/Dextrose (Heparin Drip 25,000 Units(*)) 25,000 units in 500 mls @ 0 mls/hr IV .NO BOLUSES PROTOCOL TRINITY; Per Protocol PRN Reason: Protocol Last Admin: 01/04/17 12:26 Dose: 37 mls/hr Medroxyprogesterone Acetate (Provera Tab*) 5 mg PO BID [facility] Last Admin: 01/04/17 14:02 Dose: 5 mg Metoprolol Tartrate (Lopressor Tab*) 12.5 mg PO Q12HR [facility] Last Admin: 01/04/17 11:04 Dose: 12.5 mg Omeprazole (Prilosec Cap*) 20 mg PO BID AC [facility] Last Admin: 01/04/17 16:16 Dose: 20 mg Warfarin Sodium (Coumadin Tab(*)) 5 mg PO ONCE ONE PRN Reason: Protocol Stop: 01/04/17 18:01 Last Admin: 01/04/17 17:36 Dose: 5 mg Warfarin Sodium (Coumadin Tab(*)) 5 mg PO DAILY@1700 [facility] PRN Reason: Protocol Vital Signs 01/03/17 01/03/17 01/03/17 18:58 20:00 21:41 Temperature 98.7 F 98.1 F Pulse Rate 75 72 Respiratory 20 20 20 Rate Blood Pressure 117/65 91/47 (mmHg) O2 Sat by Pulse 100 100 Oximetry 01/03/17 01/03/17 01/03/17 21:54 23:20 23:48 Temperature 98.4 F 98.9 F 98.6 F Pulse Rate 76 70 72 Respiratory 20 16 18 Rate Blood Pressure 91/51 84/49 92/56 (mmHg) O2 Sat by Pulse 100 100 99 Oximetry 01/04/17 01/04/17 01/04/17 00:14 02:44 03:38 Temperature 97.4 F 98.5 F 98.3 F Pulse Rate 71 71 70 Respiratory 18 20 20 Rate Blood Pressure 106/52 105/45 120/57 (mmHg) O2 Sat by Pulse 99 100 99 Oximetry 01/04/17 01/04/17 01/04/17 07:26 11:45 15:07 Temperature 98.4 F 98.4 F 98.4 F Pulse Rate 75 71 73 Respiratory 20 18 22 Rate Blood Pressure 116/52 109/53 111/54 (mmHg) O2 Sat by Pulse 98 100 100 Oximetry 01/04/17 01/04/17 01/04/17 15:45 15:47 15:49 Temperature Pulse Rate 73 82 98 Respiratory Rate Blood Pressure 107/52 122/65 96/63 (mmHg) O2 Sat by Pulse Oximetry Oxygen Devices in Use Now: Nasal Cannula Appearance: Morbidly obese female sitting up in chair in NAD Respiratory: Symmetrical Chest Expansion and Respiratory Effort, Clear to Auscultation Cardiovascular: NL Sounds; No Murmurs; No JVD, No Edema Abdominal: NL Sounds; No Tenderness; No Distention Extremities: No Edema Skin: No Rash or Ulcers Neurological: Alert and Oriented x 3, NL Muscle Strength and Tone Nutrition: Taking PO's Result Diagrams: 01/04/17 15:38 01/04/17 05:40 Additional Lab and Data: Lab Results 01/03/17 01/03/17 01/03/17 Range/Units 16:20 16:20 16:20 WBC 8.4 (3.5-10.8) 10^3/ul RBC 3.45 L (4.0-5.4) 10^6/ul Hgb 7.2 L (12.0-16.0) g/dl Hct 24 L (35-47) % MCV 68 L (80-97) fL MCH 21 L (27-31) pg MCHC 31 (31-36) g/dl RDW 20 H (10.5-15) % Plt Count 238 (150-450) 10^3/ul MPV 9 (7.4-10.4) um3 Neut % (Auto) 74.6 (38-83) % Lymph % (Auto) 12.8 L (25-47) % Warren % (Auto) 8.5 (1-9) % Eos % (Auto) 3.4 (0-6) % Baso % (Auto) 0.7 (0-2) % Absolute Neuts (auto) 6.2 (1.5-7.7) 10^3/ul Absolute Lymphs (auto) 1.1 (1.0-4.8) 10^3/ul Absolute Monos (auto) 0.7 (0-0.8) 10^3/ul Absolute Eos (auto) 0.3 (0-0.6) 10^3/ul Absolute Basos (auto) 0.1 (0-0.2) 10^3/ul Absolute Nucleated RBC 0.02 10^3/ul Nucleated RBC % 0.2 APTT (26.0-36.3) seconds Sodium 137 (133-145) mmol/L Potassium 3.2 L (3.5-5.0) mmol/L Chloride 93 L (101-111) mmol/L Carbon Dioxide 38 H (22-32) mmol/L Anion Gap 6 (2-11) mmol/L BUN 13 (6-24) mg/dL Creatinine 0.77 (0.51-0.95) mg/dL Est GFR ( Amer) 99.7 (>60) Est GFR (Non-Af Amer) 77.5 (>60) BUN/Creatinine Ratio 16.9 (8-20) Glucose 137 H (70-100) mg/dL Lactic Acid 2.4 H* (0.5-2.0) mmol/L Calcium 9.1 (8.6-10.3) mg/dL Total Bilirubin 0.40 (0.2-1.0) mg/dL AST 13 (13-39) U/L ALT 10 (7-52) U/L Alkaline Phosphatase 52 (34-104) U/L Troponin I 0.01 (<0.04) ng/mL Total Protein 6.4 (6.4-8.9) g/dL Albumin 3.4 (3.2-5.2) g/dL Globulin 3.0 (2-4) g/dL Albumin/Globulin Ratio 1.1 (1-3) Blood Type Antibody Screen Crossmatch 01/03/17 01/03/17 Range/Units 16:20 16:22 WBC (3.5-10.8) 10^3/ul RBC (4.0-5.4) 10^6/ul Hgb (12.0-16.0) g/dl Hct (35-47) % MCV (80-97) fL MCH (27-31) pg MCHC (31-36) g/dl RDW (10.5-15) % Plt Count (150-450) 10^3/ul MPV (7.4-10.4) um3 Neut % (Auto) (38-83) % Lymph % (Auto) (25-47) % Warren % (Auto) (1-9) % Eos % (Auto) (0-6) % Baso % (Auto) (0-2) % Absolute Neuts (auto) (1.5-7.7) 10^3/ul Absolute Lymphs (auto) (1.0-4.8) 10^3/ul Absolute Monos (auto) (0-0.8) 10^3/ul Absolute Eos (auto) (0-0.6) 10^3/ul Absolute Basos (auto) (0-0.2) 10^3/ul Absolute Nucleated RBC 10^3/ul Nucleated RBC % APTT 38.4 H (26.0-36.3) seconds Sodium (133-145) mmol/L Potassium (3.5-5.0) mmol/L Chloride (101-111) mmol/L Carbon Dioxide (22-32) mmol/L Anion Gap (2-11) mmol/L BUN (6-24) mg/dL Creatinine (0.51-0.95) mg/dL Est GFR ( Amer) (>60) Est GFR (Non-Af Amer) (>60) BUN/Creatinine Ratio (8-20) Glucose (70-100) mg/dL Lactic Acid (0.5-2.0) mmol/L Calcium (8.6-10.3) mg/dL Total Bilirubin (0.2-1.0) mg/dL AST (13-39) U/L ALT (7-52) U/L Alkaline Phosphatase (34-104) U/L Troponin I (<0.04) ng/mL Total Protein (6.4-8.9) g/dL Albumin (3.2-5.2) g/dL Globulin (2-4) g/dL Albumin/Globulin Ratio (1-3) Blood Type A Positive Antibody Screen Negative Crossmatch See Detail Assess/Plan/Problems-Billing Assessment: Ms. Jain is a 56 yo female with a PMH of dysfunctional uterine bleeding with recent initiation of xarelto for bilateral PEs on 12/19/16 who was admitted on with symptomatic anemia. - Patient Problems (1) Pulmonary emboli Comment: PE's have decreased in size. Plan to switch from xarelto to warfarin with hep gtt bridging. Will need to be anticoagulated for life as this is her second unprovoked PE. (2) Anemia Comment: Secondary to AUB. Has had three units PRBC but Hgb remains at 7. Plan for 2 more units now. No evidence of other source of bleeding. Stool reported to be soft and brown, no unusual pain to suspect spontaneous bleed in retroperitoneum etc. (3) Abnormal uterine bleeding Comment: Continues to bleed significantly, wearing diaper which is being changed q4h with golf ball size clots. Appreciate consultation from Dr. Van. TVUS showed a normal endometrial stripe with only a small fibroid. Plan to start progesterone and arrange for placement of IUD, will try to have placed later this week with Dr. Ibarra (maybe Th or Wed). Will switch to warfarin as xarelto is associated with higher bleeding risk in AUB. (4) HTN (hypertension) Comment: Pt remains orthostatic. Continue furosemide and metoprolol. (5) GERD (gastroesophageal reflux disease) Comment: Continue BID omeprazole for now, on ranexa at home. (6) DVT prophylaxis Comment: heparin gtt (7) Full code status Status and Disposition: Inpatient with expected LOS > 2 days.
[2017-01-04] MEDS ORDERED: Warfarin TAB(*) 5 MG PO ONE (18:00)
[2017-01-04 22:01] LABS: Hematocrit 26 % (35-47); Hemoglobin 8.1 g/dl (12.0-16.0)
[2017-01-04 22:09] LABS: Comments Flag Yes
[2017-01-05] MEDS ORDERED: Heparin DRIP 25,000 UNITS(*) 25,000 UNITS/500 ML BAG ONE ×2 (02:05→17:55)
[2017-01-05] MEDS: Heparin DRIP 25,000 UNITS(*) 25,000 UNITS/500 ML BAG IV SCH ×2 (02:12→17:58)
[2017-01-05 06:00] LABS: Hematocrit 26 % (35-47); Hemoglobin 8.2 g/dl (12.0-16.0); Mean Corpuscular HGB Conc 32 g/dl (31-36); Mean Corpuscular Hemoglobin 24 pg (27-31); Mean Corpuscular Volume 75 fL (80-97); Mean Platelet Volume 9 um3 (7.4-10.4); Red Blood Count 3.42 10^6/ul (4.0-5.4); White Blood Count 7.1 10^3/ul (3.5-10.8)
[2017-01-05 06:01] LABS: Comments Flag Yes
[2017-01-05 06:02] LABS: Red Cell Distribution Width 23 % (10.5-15)
[2017-01-05 06:10] LABS: EGFR African American 117.1 (>60)
[2017-01-05] MEDS: Omeprazole CAP* 20 MG PO SCH ×2 (09:53→16:40)
[2017-01-05] MEDS: Metoprolol Tartrate TAB* 25 MG PO SCH ×2 (09:53→21:05)
[2017-01-05] MEDS: MEDROXYPROGESTERONE 5 MG PO SCH ×2 (09:53→21:04)
--- NOTE | 2017-01-05 10:51 | PN ---
Subjective Date of Service: 01/05/17 Interval History: patient reports she "feels a little better today". Denies SOB or CP. No fevers or chills. Reports she feels that her vaginal bleeding has increased compared to yesterday but states she has only gone through 1 pas since last evening. No abdominal pain. reports she has dysuria stating she was treated for a UTI 3 weeks ago and doesnt feel that it ever completely resolved. Denies urinary urgency or frequency. Objective Active Medications: Acetaminophen (Tylenol Tab*) 650 mg PO Q6H PRN PRN Reason: PAIN Last Admin: 01/04/17 16:16 Dose: 650 mg Heparin Sodium (Porcine) (Heparin Flush Picc/Ml/Cvc(*)) 1 ml FLUSH 0600,1800 [facility] PRN Reason: Protocol Last Admin: 01/05/17 05:25 Dose: 1 ml Heparin Sodium/Dextrose (Heparin Drip 25,000 Units(*)) 25,000 units in 500 mls @ 0 mls/hr IV .NO BOLUSES PROTOCOL [facility]; Per Protocol PRN Reason: Protocol Last Admin: 01/05/17 02:12 Dose: 37 mls/hr Medroxyprogesterone Acetate (Provera Tab*) 5 mg PO BID [facility] Last Admin: 01/05/17 09:53 Dose: 5 mg Metoprolol Tartrate (Lopressor Tab*) 12.5 mg PO Q12HR [facility] Last Admin: 01/05/17 09:53 Dose: 12.5 mg Omeprazole (Prilosec Cap*) 20 mg PO BID AC [facility] Last Admin: 01/05/17 09:53 Dose: 20 mg Warfarin Sodium (Coumadin Tab(*)) 5 mg PO DAILY@1700 [facility] PRN Reason: Protocol Vital Signs 01/04/17 01/04/17 01/04/17 11:45 15:07 15:45 Temperature 98.4 F 98.4 F Pulse Rate 71 73 73 Respiratory 18 22 Rate Blood Pressure 109/53 111/54 107/52 (mmHg) O2 Sat by Pulse 100 100 Oximetry 01/04/17 01/04/17 01/04/17 15:47 15:49 17:43 Temperature 98.2 F Pulse Rate 82 98 75 Respiratory 16 Rate Blood Pressure 122/65 96/63 131/57 (mmHg) O2 Sat by Pulse 100 Oximetry 01/04/17 01/04/17 01/04/17 19:29 20:00 20:33 Temperature 98.6 F 98.5 F Pulse Rate 75 70 Respiratory 24 20 17 Rate Blood Pressure 100/51 96/49 (mmHg) O2 Sat by Pulse 100 100 Oximetry 01/04/17 01/04/17 01/04/17 20:59 23:21 23:45 Temperature 98.1 F 98.3 F Pulse Rate 70 74 Respiratory 18 18 Rate Blood Pressure 100/58 104/46 98/54 (mmHg) O2 Sat by Pulse 100 97 Oximetry 01/05/17 01/05/17 01/05/17 00:43 02:26 03:48 Temperature 97.4 F 98.1 F 98.5 F Pulse Rate 79 79 87 Respiratory 20 18 20 Rate Blood Pressure 96/47 98/51 110/63 (mmHg) O2 Sat by Pulse 99 93 99 Oximetry 01/05/17 07:49 Temperature 98.3 F Pulse Rate 71 Respiratory 16 Rate Blood Pressure 112/56 (mmHg) O2 Sat by Pulse 100 Oximetry Oxygen Devices in Use Now: Nasal Cannula Appearance: 56 yo morbidly obese female sitting up in a chair A+O x3 in NAD Eyes: No Scleral Icterus, PERRLA Ears/Nose/Mouth/Throat: NL Teeth, Lips, Gums, Mucous Membranes Moist Neck: NL Appearance and Movements; NL JVP Respiratory: Symmetrical Chest Expansion and Respiratory Effort, Clear to Auscultation Cardiovascular: NL Sounds; No Murmurs; No JVD, RRR, No Edema Abdominal: NL Sounds; No Tenderness; No Distention, - - obese Extremities: No Edema, No Clubbing, Cyanosis Skin: No Rash or Ulcers, No Nodules or Sclerosis Neurological: Alert and Oriented x 3, NL Sensation, NL Muscle Strength and Tone Lines/Tubes/Other Access: Clean, Dry and Intact Peripheral IV Nutrition: Taking PO's Result Diagrams: 01/05/17 05:24 01/05/17 05:24 Additional Lab and Data: Lab Results 01/03/17 01/03/17 01/03/17 Range/Units 16:20 16:20 16:20 WBC 8.4 (3.5-10.8) 10^3/ul RBC 3.45 L (4.0-5.4) 10^6/ul Hgb 7.2 L (12.0-16.0) g/dl Hct 24 L (35-47) % MCV 68 L (80-97) fL MCH 21 L (27-31) pg MCHC 31 (31-36) g/dl RDW 20 H (10.5-15) % Plt Count 238 (150-450) 10^3/ul MPV 9 (7.4-10.4) um3 Neut % (Auto) 74.6 (38-83) % Lymph % (Auto) 12.8 L (25-47) % [place] % (Auto) 8.5 (1-9) % Eos % (Auto) 3.4 (0-6) % Baso % (Auto) 0.7 (0-2) % Absolute Neuts (auto) 6.2 (1.5-7.7) 10^3/ul Absolute Lymphs (auto) 1.1 (1.0-4.8) 10^3/ul Absolute Monos (auto) 0.7 (0-0.8) 10^3/ul Absolute Eos (auto) 0.3 (0-0.6) 10^3/ul Absolute Basos (auto) 0.1 (0-0.2) 10^3/ul Absolute Nucleated RBC 0.02 10^3/ul Nucleated RBC % 0.2 APTT (26.0-36.3) seconds Sodium 137 (133-145) mmol/L Potassium 3.2 L (3.5-5.0) mmol/L Chloride 93 L (101-111) mmol/L Carbon Dioxide 38 H (22-32) mmol/L Anion Gap 6 (2-11) mmol/L BUN 13 (6-24) mg/dL Creatinine 0.77 (0.51-0.95) mg/dL Est GFR ( Amer) 99.7 (>60) Est GFR (Non-Af Amer) 77.5 (>60) BUN/Creatinine Ratio 16.9 (8-20) Glucose 137 H (70-100) mg/dL Lactic Acid 2.4 H* (0.5-2.0) mmol/L Calcium 9.1 (8.6-10.3) mg/dL Total Bilirubin 0.40 (0.2-1.0) mg/dL AST 13 (13-39) U/L ALT 10 (7-52) U/L Alkaline Phosphatase 52 (34-104) U/L Troponin I 0.01 (<0.04) ng/mL Total Protein 6.4 (6.4-8.9) g/dL Albumin 3.4 (3.2-5.2) g/dL Globulin 3.0 (2-4) g/dL Albumin/Globulin Ratio 1.1 (1-3) Blood Type Antibody Screen Crossmatch 01/03/17 01/03/17 Range/Units 16:20 16:22 WBC (3.5-10.8) 10^3/ul RBC (4.0-5.4) 10^6/ul Hgb (12.0-16.0) g/dl Hct (35-47) % MCV (80-97) fL MCH (27-31) pg MCHC (31-36) g/dl RDW (10.5-15) % Plt Count (150-450) 10^3/ul MPV (7.4-10.4) um3 Neut % (Auto) (38-83) % Lymph % (Auto) (25-47) % [place] % (Auto) (1-9) % Eos % (Auto) (0-6) % Baso % (Auto) (0-2) % Absolute Neuts (auto) (1.5-7.7) 10^3/ul Absolute Lymphs (auto) (1.0-4.8) 10^3/ul Absolute Monos (auto) (0-0.8) 10^3/ul Absolute Eos (auto) (0-0.6) 10^3/ul Absolute Basos (auto) (0-0.2) 10^3/ul Absolute Nucleated RBC 10^3/ul Nucleated RBC % APTT 38.4 H (26.0-36.3) seconds Sodium (133-145) mmol/L Potassium (3.5-5.0) mmol/L Chloride (101-111) mmol/L Carbon Dioxide (22-32) mmol/L Anion Gap (2-11) mmol/L BUN (6-24) mg/dL Creatinine (0.51-0.95) mg/dL Est GFR ( Amer) (>60) Est GFR (Non-Af Amer) (>60) BUN/Creatinine Ratio (8-20) Glucose (70-100) mg/dL Lactic Acid (0.5-2.0) mmol/L Calcium (8.6-10.3) mg/dL Total Bilirubin (0.2-1.0) mg/dL AST (13-39) U/L ALT (7-52) U/L Alkaline Phosphatase (34-104) U/L Troponin I (<0.04) ng/mL Total Protein (6.4-8.9) g/dL Albumin (3.2-5.2) g/dL Globulin (2-4) g/dL Albumin/Globulin Ratio (1-3) Blood Type A Positive Antibody Screen Negative Crossmatch See Detail Microbiology and Other Data: Microbiology 01/04/17 20:45 Transfusion Reaction Culture - Preliminary Blood Bag Culture Under Incubation Transfusion Reaction Gram Stain - Final Assess/Plan/Problems-Billing Assessment: Ms. Jain is a 56 yo female with a PMH of dysfunctional uterine bleeding with recent initiation of xarelto for bilateral PEs on 12/19/16 who was admitted on with symptomatic anemia. - Patient Problems (1) Pulmonary emboli Comment: Per CTA, PE's have decreased in size. Xarelto was D/C'd and warfarin with hep gtt bridging was initiated on admission. Will need to be anticoagulated for life as this is her second unprovoked PE. - TTE 12/20/16 showing LVEF 55%, mildy reduced RV function - INR subtheraputic (2) Abnormal uterine bleeding Status: Acute Comment: Continues to bleed but slightly less than yesterday? Per nurse 1 large clot noted this am on pad. Appreciate consultation from Dr. Van. TVUS showed a normal endometrial stripe with only a small fibroid. Progesterone started 01/04, plan for placement of IUD, will try to have placed later this week with Dr. Ibarra ( maybe or Wed). Plan for warfarin as xarelto is associated with higher bleeding risk in AUB. (3) Anemia Comment: Secondary to AUB. Has had 5 units PRBC since admission - Hgb at 8 this am- up from 7. No evidence of other source of bleeding. Check stool for occult blood. VSS - (noted she is on BB) Check HH now and continue to trend NS @ 100 ml/hr (4) GERD (gastroesophageal reflux disease) Comment: Continue BID omeprazole for now, on ranexa at home. (5) HTN (hypertension) Comment: Pt was orthostatic. Plan to recheck orthostatic VS. Continue to hold furosemide and decreased dose of metoprolol. (6) DVT prophylaxis Comment: heparin gtt (7) Full code status Status and Disposition: Inpatient with expected LOS > 2 days.
[2017-01-05] MEDS ORDERED: NS 0.9% 1000 ML* 1,000 ML IV SCH (12:45)
[2017-01-05] MEDS: NS 0.9% 1000 ML* 1,000 ML IV SCH (13:00)
[2017-01-05 13:17] LABS: Hematocrit 27 % (35-47); Hemoglobin 8.6 g/dl (12.0-16.0)
[2017-01-05 13:25] LABS: Comments Flag Yes
[2017-01-05 14:28] LABS: Urine Bacteria Absent (Absent); Urine Bilirubin Negative (Negative); Urine Glucose 1+(50 mg/dL) (Negative); Urine Nitrite Negative (Negative)
[2017-01-05] MEDS: Warfarin TAB(*) 5 MG PO SCH (16:42)
[2017-01-05 18:26] LABS: Hematocrit 25 % (35-47)
[2017-01-05 18:32] LABS: Comments Flag Yes
[2017-01-06 01:24] LABS: Comments Flag Yes; Hematocrit 27 % (35-47); Hemoglobin 8.6 g/dl (12.0-16.0)
[2017-01-06] MEDS: NS 0.9% 1000 ML* 1,000 ML IV SCH (04:15)
[2017-01-06 06:05] LABS: Hematocrit 25 % (35-47); Hemoglobin 7.8 g/dl (12.0-16.0); Mean Corpuscular HGB Conc 32 g/dl (31-36); Mean Corpuscular Hemoglobin 24 pg (27-31); Mean Corpuscular Volume 76 fL (80-97); Mean Platelet Volume 9 um3 (7.4-10.4); Red Blood Count 3.25 10^6/ul (4.0-5.4); White Blood Count 6.2 10^3/ul (3.5-10.8)
[2017-01-06 06:13] LABS: Comments Flag Yes
[2017-01-06 06:14] LABS: Red Cell Distribution Width 22 % (10.5-15)
[2017-01-06 06:20] LABS: BUN/Creatinine Ratio 16.9 (8-20); Calcium 8.5 mg/dL (8.6-10.3); EGFR African American 135.6 (>60); EGFR Non-African American 105.4 (>60); Potassium 3.2 mmol/L (3.5-5.0)
[2017-01-06] MEDS: Metoprolol Tartrate TAB* 25 MG PO SCH ×3 (08:08→21:49)
[2017-01-06] MEDS: Omeprazole CAP* 20 MG PO SCH ×2 (08:08→16:41)
[2017-01-06] MEDS ORDERED: Potassium Chlor TAB* 20 MEQ TAB.ER PO ONE (08:31)
[2017-01-06] MEDS: MEDROXYPROGESTERONE 5 MG PO SCH ×2 (11:07→20:59)
[2017-01-06] MEDS: KCL 20 MEQ/100 ML IVPREMIX* 20 MEQ/100 ML BAG IV SCH ×2 (11:07→13:11)
[2017-01-06 12:09] LABS: Hematocrit 25 % (35-47); Hemoglobin 7.8 g/dl (12.0-16.0)
[2017-01-06 12:13] LABS: Comments Flag Yes
[2017-01-06] MEDS ORDERED: Heparin DRIP 25,000 UNITS(*) 25,000 UNITS/500 ML BAG ONE (13:03)
[2017-01-06] MEDS: Heparin DRIP 25,000 UNITS(*) 25,000 UNITS/500 ML BAG IV SCH (13:05)
--- NOTE | 2017-01-06 15:03 | PN ---
Subjective Date of Service: 01/06/17 Interval History: pt reports her vaginal bleeding has "really improved since yesterday" reporting only 1 pad change today. She denies SOB, CP or dizziness. Reports good appetite. No N/V/D. reports brown BMs, no noted bloody stool or dark stool. Objective Active Medications: Acetaminophen (Tylenol Tab*) 650 mg PO Q6H PRN PRN Reason: PAIN Last Admin: 01/04/17 16:16 Dose: 650 mg Heparin Sodium (Porcine) (Heparin Flush Picc/Ml/Cvc(*)) 1 ml FLUSH 0600,1800 [facility] PRN Reason: Protocol Last Admin: 01/06/17 05:22 Dose: Not Given Heparin Sodium/Dextrose (Heparin Drip 25,000 Units(*)) 25,000 units in 500 mls @ 0 mls/hr IV .NO BOLUSES PROTOCOL [facility]; Per Protocol PRN Reason: Protocol Last Admin: 01/06/17 13:05 Dose: 29 mls/hr Sodium Chloride (Ns 0.9% 1000 Ml*) 1,000 mls @ 75 mls/hr IV PER RATE [facility] Stop: 01/07/17 02:04 Last Admin: 01/06/17 04:15 Dose: 75 mls/hr Medroxyprogesterone Acetate (Provera Tab*) 5 mg PO BID [facility] Last Admin: 01/06/17 11:07 Dose: 5 mg Metoprolol Tartrate (Lopressor Tab*) 12.5 mg PO Q12HR [facility] Last Admin: 01/06/17 08:08 Dose: 12.5 mg Omeprazole (Prilosec Cap*) 20 mg PO BID AC [facility] Last Admin: 01/06/17 08:08 Dose: 20 mg Pharmacy Profile Note (Coumadin Daily Reminder*) 1 note FOLLOW UP 1700 [facility] Last Admin: 01/05/17 16:42 Dose: 1 note Warfarin Sodium (Coumadin Tab(*)) 5 mg PO DAILY@1700 [facility] PRN Reason: Protocol Last Admin: 01/05/17 16:42 Dose: 5 mg Vital Signs 01/05/17 01/05/17 01/05/17 15:31 17:26 17:27 Temperature 98.1 F Pulse Rate 73 Respiratory 20 Rate Blood Pressure 123/51 123/70 125/55 (mmHg) O2 Sat by Pulse 100 Oximetry 01/05/17 01/05/17 01/05/17 18:24 19:34 23:41 Temperature 98.3 F 98.7 F Pulse Rate 73 80 88 Respiratory 20 20 Rate Blood Pressure 123/51 142/49 98/54 (mmHg) O2 Sat by Pulse 100 100 98 Oximetry 01/06/17 01/06/17 04:00 08:11 Temperature 97.9 F 98.3 F Pulse Rate 82 76 Respiratory 20 18 Rate Blood Pressure 109/48 117/61 (mmHg) O2 Sat by Pulse 95 100 Oximetry Oxygen Devices in Use Now: Nasal Cannula - 3L NC (home baseline) Appearance: obese female A+O x3 sitting up in a chair in NAD Eyes: No Scleral Icterus, PERRLA Ears/Nose/Mouth/Throat: Mucous Membranes Moist Neck: NL Appearance and Movements; NL JVP Respiratory: Symmetrical Chest Expansion and Respiratory Effort, Clear to Auscultation Cardiovascular: NL Sounds; No Murmurs; No JVD, RRR, No Edema Abdominal: - - obese, nondistended, soft Extremities: No Edema, No Clubbing, Cyanosis Skin: No Rash or Ulcers, No Nodules or Sclerosis Neurological: Alert and Oriented x 3, NL Sensation, NL Gait, NL Muscle Strength and Tone Lines/Tubes/Other Access: Clean, Dry and Intact Peripheral IV Nutrition: Taking PO's Result Diagrams: 01/06/17 12:00 01/06/17 05:50 Additional Lab and Data: Lab Results 01/03/17 01/03/17 01/03/17 Range/Units 16:20 16:20 16:20 WBC 8.4 (3.5-10.8) 10^3/ul RBC 3.45 L (4.0-5.4) 10^6/ul Hgb 7.2 L (12.0-16.0) g/dl Hct 24 L (35-47) % MCV 68 L (80-97) fL MCH 21 L (27-31) pg MCHC 31 (31-36) g/dl RDW 20 H (10.5-15) % Plt Count 238 (150-450) 10^3/ul MPV 9 (7.4-10.4) um3 Neut % (Auto) 74.6 (38-83) % Lymph % (Auto) 12.8 L (25-47) % [place] % (Auto) 8.5 (1-9) % Eos % (Auto) 3.4 (0-6) % Baso % (Auto) 0.7 (0-2) % Absolute Neuts (auto) 6.2 (1.5-7.7) 10^3/ul Absolute Lymphs (auto) 1.1 (1.0-4.8) 10^3/ul Absolute Monos (auto) 0.7 (0-0.8) 10^3/ul Absolute Eos (auto) 0.3 (0-0.6) 10^3/ul Absolute Basos (auto) 0.1 (0-0.2) 10^3/ul Absolute Nucleated RBC 0.02 10^3/ul Nucleated RBC % 0.2 APTT (26.0-36.3) seconds Sodium 137 (133-145) mmol/L Potassium 3.2 L (3.5-5.0) mmol/L Chloride 93 L (101-111) mmol/L Carbon Dioxide 38 H (22-32) mmol/L Anion Gap 6 (2-11) mmol/L BUN 13 (6-24) mg/dL Creatinine 0.77 (0.51-0.95) mg/dL Est GFR ( Amer) 99.7 (>60) Est GFR (Non-Af Amer) 77.5 (>60) BUN/Creatinine Ratio 16.9 (8-20) Glucose 137 H (70-100) mg/dL Lactic Acid 2.4 H* (0.5-2.0) mmol/L Calcium 9.1 (8.6-10.3) mg/dL Total Bilirubin 0.40 (0.2-1.0) mg/dL AST 13 (13-39) U/L ALT 10 (7-52) U/L Alkaline Phosphatase 52 (34-104) U/L Troponin I 0.01 (<0.04) ng/mL Total Protein 6.4 (6.4-8.9) g/dL Albumin 3.4 (3.2-5.2) g/dL Globulin 3.0 (2-4) g/dL Albumin/Globulin Ratio 1.1 (1-3) Blood Type Antibody Screen Crossmatch 01/03/17 01/03/17 Range/Units 16:20 16:22 WBC (3.5-10.8) 10^3/ul RBC (4.0-5.4) 10^6/ul Hgb (12.0-16.0) g/dl Hct (35-47) % MCV (80-97) fL MCH (27-31) pg MCHC (31-36) g/dl RDW (10.5-15) % Plt Count (150-450) 10^3/ul MPV (7.4-10.4) um3 Neut % (Auto) (38-83) % Lymph % (Auto) (25-47) % [place] % (Auto) (1-9) % Eos % (Auto) (0-6) % Baso % (Auto) (0-2) % Absolute Neuts (auto) (1.5-7.7) 10^3/ul Absolute Lymphs (auto) (1.0-4.8) 10^3/ul Absolute Monos (auto) (0-0.8) 10^3/ul Absolute Eos (auto) (0-0.6) 10^3/ul Absolute Basos (auto) (0-0.2) 10^3/ul Absolute Nucleated RBC 10^3/ul Nucleated RBC % APTT 38.4 H (26.0-36.3) seconds Sodium (133-145) mmol/L Potassium (3.5-5.0) mmol/L Chloride (101-111) mmol/L Carbon Dioxide (22-32) mmol/L Anion Gap (2-11) mmol/L BUN (6-24) mg/dL Creatinine (0.51-0.95) mg/dL Est GFR ( Amer) (>60) Est GFR (Non-Af Amer) (>60) BUN/Creatinine Ratio (8-20) Glucose (70-100) mg/dL Lactic Acid (0.5-2.0) mmol/L Calcium (8.6-10.3) mg/dL Total Bilirubin (0.2-1.0) mg/dL AST (13-39) U/L ALT (7-52) U/L Alkaline Phosphatase (34-104) U/L Troponin I (<0.04) ng/mL Total Protein (6.4-8.9) g/dL Albumin (3.2-5.2) g/dL Globulin (2-4) g/dL Albumin/Globulin Ratio (1-3) Blood Type A Positive Antibody Screen Negative Crossmatch See Detail Microbiology and Other Data: Microbiology 01/04/17 20:45 Transfusion Reaction Culture - Preliminary Blood Bag Culture Under Incubation Transfusion Reaction Gram Stain - Final Assess/Plan/Problems-Billing Assessment: Ms. Jain is a 56 yo female with a PMH of dysfunctional uterine bleeding with recent initiation of xarelto for bilateral PEs on 12/19/16 who was admitted on with symptomatic anemia. - Patient Problems (1) Pulmonary emboli Comment: Per CTA, PE's have decreased in size. Xarelto was D/C'd and warfarin with hep gtt bridging was initiated on admission. Will need to be anticoagulated for life as this is her second unprovoked PE. - TTE 12/20/16 showing LVEF 55%, mildy reduced RV function - INR subtheraputic (2) Abnormal uterine bleeding Status: Acute Comment: Improving. HH stable. Appreciate consultation from Dr. Van. TVUS showed a normal endometrial stripe with only a small fibroid. Progesterone started 01/04, plan for placement of IUD, will try to have placed later this week with Dr. Ibarra ( maybe Th or Wed). Plan for warfarin as xarelto is associated with higher bleeding risk in AUB. (3) Anemia Comment: Secondary to AUB. Has had 5 units PRBC since admission - Hgb at 7.8 this am - stable. Stool for occult blood was positive but suspect this is false due to vaginal bleeding, stool have been brown in color. Continue to trend HH (4) GERD (gastroesophageal reflux disease) Comment: Continue BID omeprazole for now, on ranexa at home. (5) HTN (hypertension) Comment: Pt was orthostatic Continue to hold furosemide and decreased dose of metoprolol. (6) DVT prophylaxis Comment: heparin gtt (7) Full code status Status and Disposition: Inpatient with expected LOS > 2 days.
[2017-01-06] MEDS: Warfarin TAB(*) 5 MG PO SCH (16:41)
[2017-01-06 18:17] LABS: Hematocrit 24 % (35-47); Hemoglobin 7.7 g/dl (12.0-16.0)
[2017-01-06 18:25] LABS: Comments Flag Yes
[2017-01-07] MEDS ORDERED: Heparin DRIP 25,000 UNITS(*) 25,000 UNITS/500 ML BAG ONE (05:38)
[2017-01-07] MEDS: Heparin DRIP 25,000 UNITS(*) 25,000 UNITS/500 ML BAG IV SCH ×2 (05:46→22:45)
[2017-01-07] MEDS: Omeprazole CAP* 20 MG PO SCH ×2 (07:44→16:21)
[2017-01-07] MEDS: Metoprolol Tartrate TAB* 25 MG PO SCH ×2 (08:55→22:48)
[2017-01-07] MEDS: MEDROXYPROGESTERONE 5 MG PO SCH ×2 (08:57→22:58)
--- NOTE | 2017-01-07 11:04 | PN ---
Subjective Date of Service: 01/07/17 Interval History: pt reports her bleeding has stopped. She denies SOb, CP, dizziness. Reports " dry cough with some wheezing" - no sputum production. No fevers or chills. per pt OBGYN will place a IUD today. Objective Active Medications: Acetaminophen (Tylenol Tab*) 650 mg PO Q6H PRN PRN Reason: PAIN Last Admin: 01/04/17 16:16 Dose: 650 mg Heparin Sodium (Porcine) (Heparin Flush Picc/Ml/Cvc(*)) 1 ml FLUSH 0600,1800 [facility] PRN Reason: Protocol Last Admin: 01/07/17 08:58 Dose: 1 ml Heparin Sodium/Dextrose (Heparin Drip 25,000 Units(*)) 25,000 units in 500 mls @ 0 mls/hr IV .NO BOLUSES PROTOCOL [facility]; Per Protocol PRN Reason: Protocol Last Admin: 01/07/17 05:46 Dose: 33 mls/hr Medroxyprogesterone Acetate (Provera Tab*) 5 mg PO BID [facility] Last Admin: 01/07/17 08:57 Dose: 5 mg Metoprolol Tartrate (Lopressor Tab*) 12.5 mg PO Q12HR [facility] Last Admin: 01/07/17 08:55 Dose: 12.5 mg Omeprazole (Prilosec Cap*) 20 mg PO BID AC [facility] Last Admin: 01/07/17 07:44 Dose: 20 mg Pharmacy Profile Note (Coumadin Daily Reminder*) 1 note FOLLOW UP 1700 [facility] Last Admin: 01/06/17 16:42 Dose: 1 note Warfarin Sodium (Coumadin Tab(*)) 5 mg PO DAILY@1700 [facility] PRN Reason: Protocol Last Admin: 01/06/17 16:41 Dose: 5 mg Vital Signs 01/06/17 01/06/17 01/06/17 12:34 19:15 20:00 Temperature 98.8 F 98.4 F Pulse Rate 75 75 Respiratory 18 22 20 Rate Blood Pressure 105/55 97/44 (mmHg) O2 Sat by Pulse 100 98 Oximetry 01/07/17 01/07/17 01/07/17 00:24 04:32 07:31 Temperature 98.2 F 98.6 F 98.0 F Pulse Rate 81 81 73 Respiratory 16 20 12 Rate Blood Pressure 148/44 109/53 116/53 (mmHg) O2 Sat by Pulse 98 99 100 Oximetry 01/07/17 08:00 Temperature Pulse Rate Respiratory 12 Rate Blood Pressure (mmHg) O2 Sat by Pulse Oximetry Oxygen Devices in Use Now: Nasal Cannula - 3L NC (home baseline) Appearance: morbidly obese female sitting up in a chair in NAD. A+Ox3 Eyes: No Scleral Icterus, PERRLA Ears/Nose/Mouth/Throat: NL Teeth, Lips, Gums, Mucous Membranes Moist Neck: NL Appearance and Movements; NL JVP Respiratory: Symmetrical Chest Expansion and Respiratory Effort, Clear to Auscultation Cardiovascular: NL Sounds; No Murmurs; No JVD, RRR, No Edema Abdominal: NL Sounds; No Tenderness; No Distention Extremities: No Edema, No Clubbing, Cyanosis Neurological: Alert and Oriented x 3, NL Sensation, NL Gait, NL Muscle Strength and Tone Lines/Tubes/Other Access: Clean, Dry and Intact Peripheral IV Nutrition: Taking PO's Result Diagrams: 01/07/17 09:05 01/07/17 09:05 Additional Lab and Data: Lab Results 01/03/17 01/03/17 01/03/17 Range/Units 16:20 16:20 16:20 WBC 8.4 (3.5-10.8) 10^3/ul RBC 3.45 L (4.0-5.4) 10^6/ul Hgb 7.2 L (12.0-16.0) g/dl Hct 24 L (35-47) % MCV 68 L (80-97) fL MCH 21 L (27-31) pg MCHC 31 (31-36) g/dl RDW 20 H (10.5-15) % Plt Count 238 (150-450) 10^3/ul MPV 9 (7.4-10.4) um3 Neut % (Auto) 74.6 (38-83) % Lymph % (Auto) 12.8 L (25-47) % [place] % (Auto) 8.5 (1-9) % Eos % (Auto) 3.4 (0-6) % Baso % (Auto) 0.7 (0-2) % Absolute Neuts (auto) 6.2 (1.5-7.7) 10^3/ul Absolute Lymphs (auto) 1.1 (1.0-4.8) 10^3/ul Absolute Monos (auto) 0.7 (0-0.8) 10^3/ul Absolute Eos (auto) 0.3 (0-0.6) 10^3/ul Absolute Basos (auto) 0.1 (0-0.2) 10^3/ul Absolute Nucleated RBC 0.02 10^3/ul Nucleated RBC % 0.2 APTT (26.0-36.3) seconds Sodium 137 (133-145) mmol/L Potassium 3.2 L (3.5-5.0) mmol/L Chloride 93 L (101-111) mmol/L Carbon Dioxide 38 H (22-32) mmol/L Anion Gap 6 (2-11) mmol/L BUN 13 (6-24) mg/dL Creatinine 0.77 (0.51-0.95) mg/dL Est GFR ( Amer) 99.7 (>60) Est GFR (Non-Af Amer) 77.5 (>60) BUN/Creatinine Ratio 16.9 (8-20) Glucose 137 H (70-100) mg/dL Lactic Acid 2.4 H* (0.5-2.0) mmol/L Calcium 9.1 (8.6-10.3) mg/dL Total Bilirubin 0.40 (0.2-1.0) mg/dL AST 13 (13-39) U/L ALT 10 (7-52) U/L Alkaline Phosphatase 52 (34-104) U/L Troponin I 0.01 (<0.04) ng/mL Total Protein 6.4 (6.4-8.9) g/dL Albumin 3.4 (3.2-5.2) g/dL Globulin 3.0 (2-4) g/dL Albumin/Globulin Ratio 1.1 (1-3) Blood Type Antibody Screen Crossmatch 01/03/17 01/03/17 Range/Units 16:20 16:22 WBC (3.5-10.8) 10^3/ul RBC (4.0-5.4) 10^6/ul Hgb (12.0-16.0) g/dl Hct (35-47) % MCV (80-97) fL MCH (27-31) pg MCHC (31-36) g/dl RDW (10.5-15) % Plt Count (150-450) 10^3/ul MPV (7.4-10.4) um3 Neut % (Auto) (38-83) % Lymph % (Auto) (25-47) % [place] % (Auto) (1-9) % Eos % (Auto) (0-6) % Baso % (Auto) (0-2) % Absolute Neuts (auto) (1.5-7.7) 10^3/ul Absolute Lymphs (auto) (1.0-4.8) 10^3/ul Absolute Monos (auto) (0-0.8) 10^3/ul Absolute Eos (auto) (0-0.6) 10^3/ul Absolute Basos (auto) (0-0.2) 10^3/ul Absolute Nucleated RBC 10^3/ul Nucleated RBC % APTT 38.4 H (26.0-36.3) seconds Sodium (133-145) mmol/L Potassium (3.5-5.0) mmol/L Chloride (101-111) mmol/L Carbon Dioxide (22-32) mmol/L Anion Gap (2-11) mmol/L BUN (6-24) mg/dL Creatinine (0.51-0.95) mg/dL Est GFR ( Amer) (>60) Est GFR (Non-Af Amer) (>60) BUN/Creatinine Ratio (8-20) Glucose (70-100) mg/dL Lactic Acid (0.5-2.0) mmol/L Calcium (8.6-10.3) mg/dL Total Bilirubin (0.2-1.0) mg/dL AST (13-39) U/L ALT (7-52) U/L Alkaline Phosphatase (34-104) U/L Troponin I (<0.04) ng/mL Total Protein (6.4-8.9) g/dL Albumin (3.2-5.2) g/dL Globulin (2-4) g/dL Albumin/Globulin Ratio (1-3) Blood Type A Positive Antibody Screen Negative Crossmatch See Detail Microbiology and Other Data: Microbiology 01/04/17 20:45 Transfusion Reaction Culture - Preliminary Blood Bag Culture Under Incubation Transfusion Reaction Gram Stain - Final Assess/Plan/Problems-Billing Assessment: Ms. Jain is a 56 yo female with a PMH of dysfunctional uterine bleeding with recent initiation of xarelto for bilateral PEs on 12/19/16 who was admitted on with symptomatic anemia. - Patient Problems (1) Pulmonary emboli Comment: Per CTA, PE's have decreased in size. Xarelto was D/C'd and warfarin with hep gtt bridging was initiated on admission. Will need to be anticoagulated for life as this is her second unprovoked PE. - TTE 12/20/16 showing LVEF 55%, mildy reduced RV function - INR subtheraputic - continue Hep gtt with bridge to coumadin (2) Abnormal uterine bleeding Status: Acute Comment: Resolved. Appreciate consultation from Dr. Van. TVUS showed a normal endometrial stripe with only a small fibroid. Progesterone started 01/04, plan for placement of IUD, with Dr. Ibarra today Plan for warfarin as xarelto is associated with higher bleeding risk in AUB. (3) Anemia Comment: Acute Blood Loss anemia, Secondary to AUB. Has had 5 units PRBC since admission - Hgb at 7.3 this am - Plan to give 2 units PRBCS. Stool for occult blood was positive but suspect this is false due to vaginal bleeding, stool have been brown in color. Continue to trend HH (4) GERD (gastroesophageal reflux disease) Comment: Continue BID omeprazole for now, on ranexa at home. (5) HTN (hypertension) Comment: Pt was orthostatic Continue to hold furosemide and decreased dose of metoprolol. (6) DVT prophylaxis Comment: heparin gtt (7) Full code status Status and Disposition: Inpatient with expected LOS > 2 days.
[2017-01-07] MEDS ORDERED: Albuterol 2.5 MG/3 ML NEB.SOL* (0.083%) INH PRN (12:44)
[2017-01-07 12:46] LABS: Hematocrit 24 % (35-47); Hemoglobin 7.3 g/dl (12.0-16.0); Mean Corpuscular HGB Conc 31 g/dl (31-36); Mean Corpuscular Hemoglobin 24 pg (27-31); Mean Corpuscular Volume 77 fL (80-97); Mean Platelet Volume 9 um3 (7.4-10.4); Red Blood Count 3.08 10^6/ul (4.0-5.4); White Blood Count 4.5 10^3/ul (3.5-10.8)
[2017-01-07 12:47] LABS: Comments Flag Yes
[2017-01-07 12:48] LABS: Red Cell Distribution Width 23 % (10.5-15)
[2017-01-07 13:06] LABS: BUN/Creatinine Ratio 14.5 (8-20); Calcium 8.4 mg/dL (8.6-10.3); EGFR African American 128.1 (>60); EGFR Non-African American 99.6 (>60); Potassium 3.8 mmol/L (3.5-5.0)
[2017-01-07] MEDS: Warfarin TAB(*) 5 MG PO SCH (16:21)
[2017-01-07 17:02] LABS: Total Iron Binding Capacity 363 mcg/dL (250-450); Transferrin 259 mg/dL (203-362)
[2017-01-07 17:04] LABS: Iron < 15 ug/dL (50-212)
[2017-01-07 17:23] LABS: Ferritin < 10.0 ng/mL (11-307)
[2017-01-07 17:27] LABS: Folate 13.36 ng/mL (>3.99); Vitamin B12 184 pg/mL (180-914)
[2017-01-07] MEDS: Ferrous Sulfate TAB* 325 MG PO SCH (22:48)
[2017-01-07] MEDS: Acetaminophen TAB* 325 MG PO PRN (22:48)
[2017-01-08 02:18] LABS: Hematocrit 29 % (35-47); Hemoglobin 9.3 g/dl (12.0-16.0)
[2017-01-08 06:34] LABS: Hematocrit 28 % (35-47); Hemoglobin 8.7 g/dl (12.0-16.0); Mean Corpuscular HGB Conc 31 g/dl (31-36); Mean Corpuscular Hemoglobin 24 pg (27-31); Mean Corpuscular Volume 78 fL (80-97); Mean Platelet Volume 9 um3 (7.4-10.4); Red Blood Count 3.61 10^6/ul (4.0-5.4); Red Cell Distribution Width 22 % (10.5-15); White Blood Count 5.9 10^3/ul (3.5-10.8)
[2017-01-08 06:44] LABS: BUN/Creatinine Ratio 12.9 (8-20); Calcium 8.5 mg/dL (8.6-10.3); EGFR African American 128.1 (>60); EGFR Non-African American 99.6 (>60)
[2017-01-08] MEDS: Metoprolol Tartrate TAB* 25 MG PO SCH ×2 (08:17→20:59)
[2017-01-08] MEDS: Omeprazole CAP* 20 MG PO SCH ×2 (08:17→17:10)
[2017-01-08] MEDS: Acetaminophen TAB* 325 MG PO PRN ×2 (08:17→21:05)
[2017-01-08] MEDS: Ferrous Sulfate TAB* 325 MG PO SCH ×2 (08:17→20:59)
[2017-01-08] MEDS: MEDROXYPROGESTERONE 5 MG PO SCH (08:18)
[2017-01-08 14:11] LABS: Hematocrit 29 % (35-47); Hemoglobin 9.1 g/dl (12.0-16.0)
[2017-01-08] MEDS ORDERED: Heparin DRIP 25,000 UNITS(*) 25,000 UNITS/500 ML BAG ONE (14:11)
[2017-01-08 14:13] LABS: Comments Flag Yes
--- NOTE | 2017-01-08 14:20 | PN ---
Subjective Date of Service: 01/08/17 Interval History: PaTIENT REPORTS SHE FEELS GOOD AND HAS NO FURTHER BLEEDING. SHE REPORTS SHE HAS NOT NEEDED O2 TODAY FOR THE FIRST TIME SINCE BEING DIAGNOSED WITH PE'S. DENIES SOB OR CP. NO DIZZINESS OR LIGHTHEADEDNESS Objective Active Medications: Acetaminophen (Tylenol Tab*) 650 mg PO Q6H PRN PRN Reason: PAIN Last Admin: 01/08/17 08:17 Dose: 650 mg Albuterol (Ventolin 2.5 Mg/3 Ml Neb.Tiffanie*) 2.5 mg INH Q4H PRN PRN Reason: SOB/WHEEZING Ferrous Sulfate (Ferrous Sulfate Tab*) 325 mg PO BID [facility] Last Admin: 01/08/17 08:17 Dose: 325 mg Heparin Sodium (Porcine) (Heparin Flush Picc/Ml/Cvc(*)) 1 ml FLUSH 0600,1800 [facility] PRN Reason: Protocol Last Admin: 01/08/17 05:58 Dose: 1 ml Heparin Sodium/Dextrose (Heparin Drip 25,000 Units(*)) 25,000 units in 500 mls @ 0 mls/hr IV .NO BOLUSES PROTOCOL [facility]; Per Protocol PRN Reason: Protocol Last Admin: 01/07/17 22:45 Dose: 33 mls/hr Medroxyprogesterone Acetate (Provera Tab*) 5 mg PO DAILY [facility] Metoprolol Tartrate (Lopressor Tab*) 12.5 mg PO Q12HR [facility] Last Admin: 01/08/17 08:17 Dose: 12.5 mg Omeprazole (Prilosec Cap*) 20 mg PO BID AC [facility] Last Admin: 01/08/17 08:17 Dose: 20 mg Pharmacy Profile Note (Coumadin Daily Reminder*) 1 note FOLLOW UP 1700 [facility] Last Admin: 01/07/17 19:39 Dose: 1 note Warfarin Sodium (Coumadin Tab(*)) 5 mg PO DAILY@1700 [facility] PRN Reason: Protocol Last Admin: 01/07/17 16:21 Dose: 5 mg Vital Signs 01/07/17 01/07/17 01/07/17 15:32 19:37 20:00 Temperature 98.1 F 98.3 F Pulse Rate 73 81 Respiratory 20 16 20 Rate Blood Pressure 95/46 128/51 (mmHg) O2 Sat by Pulse 100 96 Oximetry 01/07/17 01/07/17 01/07/17 20:21 21:18 21:48 Temperature 98.3 F 98.2 F 98.3 F Pulse Rate 78 78 80 Respiratory 20 20 20 Rate Blood Pressure 101/48 121/48 108/50 (mmHg) O2 Sat by Pulse 96 93 94 Oximetry 01/07/17 01/08/17 01/08/17 23:49 00:17 03:08 Temperature 98.0 F 98.0 F 97.3 F Pulse Rate 83 85 84 Respiratory 16 20 18 Rate Blood Pressure 100/43 118/51 113/50 (mmHg) O2 Sat by Pulse 96 94 92 Oximetry 01/08/17 01/08/17 01/08/17 08:00 08:03 08:49 Temperature 98.9 F Pulse Rate 76 80 Respiratory 18 16 18 Rate Blood Pressure 129/68 (mmHg) O2 Sat by Pulse 95 96 Oximetry 01/08/17 11:33 Temperature 98.7 F Pulse Rate 71 Respiratory 17 Rate Blood Pressure 130/64 (mmHg) O2 Sat by Pulse 96 Oximetry Oxygen Devices in Use Now: None Appearance: morbidly obese female laying in bed in NAD A+Ox3 - sister at bedside Eyes: No Scleral Icterus, PERRLA Ears/Nose/Mouth/Throat: NL Teeth, Lips, Gums, Mucous Membranes Moist Neck: NL Appearance and Movements; NL JVP Respiratory: Symmetrical Chest Expansion and Respiratory Effort, Clear to Auscultation Cardiovascular: NL Sounds; No Murmurs; No JVD, RRR, No Edema Abdominal: NL Sounds; No Tenderness; No Distention Lymphatic: No Cervical Adenopathy Extremities: No Edema, No Clubbing, Cyanosis Skin: No Rash or Ulcers, No Nodules or Sclerosis Neurological: Alert and Oriented x 3, NL Sensation, NL Gait, NL Muscle Strength and Tone Lines/Tubes/Other Access: Clean, Dry and Intact Peripheral IV Nutrition: Taking PO's Result Diagrams: 01/08/17 13:17 01/08/17 06:00 Additional Lab and Data: Lab Results 01/03/17 01/03/17 01/03/17 Range/Units 16:20 16:20 16:20 WBC 8.4 (3.5-10.8) 10^3/ul RBC 3.45 L (4.0-5.4) 10^6/ul Hgb 7.2 L (12.0-16.0) g/dl Hct 24 L (35-47) % MCV 68 L (80-97) fL MCH 21 L (27-31) pg MCHC 31 (31-36) g/dl RDW 20 H (10.5-15) % Plt Count 238 (150-450) 10^3/ul MPV 9 (7.4-10.4) um3 Neut % (Auto) 74.6 (38-83) % Lymph % (Auto) 12.8 L (25-47) % [place] % (Auto) 8.5 (1-9) % Eos % (Auto) 3.4 (0-6) % Baso % (Auto) 0.7 (0-2) % Absolute Neuts (auto) 6.2 (1.5-7.7) 10^3/ul Absolute Lymphs (auto) 1.1 (1.0-4.8) 10^3/ul Absolute Monos (auto) 0.7 (0-0.8) 10^3/ul Absolute Eos (auto) 0.3 (0-0.6) 10^3/ul Absolute Basos (auto) 0.1 (0-0.2) 10^3/ul Absolute Nucleated RBC 0.02 10^3/ul Nucleated RBC % 0.2 APTT (26.0-36.3) seconds Sodium 137 (133-145) mmol/L Potassium 3.2 L (3.5-5.0) mmol/L Chloride 93 L (101-111) mmol/L Carbon Dioxide 38 H (22-32) mmol/L Anion Gap 6 (2-11) mmol/L BUN 13 (6-24) mg/dL Creatinine 0.77 (0.51-0.95) mg/dL Est GFR ( Amer) 99.7 (>60) Est GFR (Non-Af Amer) 77.5 (>60) BUN/Creatinine Ratio 16.9 (8-20) Glucose 137 H (70-100) mg/dL Lactic Acid 2.4 H* (0.5-2.0) mmol/L Calcium 9.1 (8.6-10.3) mg/dL Total Bilirubin 0.40 (0.2-1.0) mg/dL AST 13 (13-39) U/L ALT 10 (7-52) U/L Alkaline Phosphatase 52 (34-104) U/L Troponin I 0.01 (<0.04) ng/mL Total Protein 6.4 (6.4-8.9) g/dL Albumin 3.4 (3.2-5.2) g/dL Globulin 3.0 (2-4) g/dL Albumin/Globulin Ratio 1.1 (1-3) Blood Type Antibody Screen Crossmatch 01/03/17 01/03/17 Range/Units 16:20 16:22 WBC (3.5-10.8) 10^3/ul RBC (4.0-5.4) 10^6/ul Hgb (12.0-16.0) g/dl Hct (35-47) % MCV (80-97) fL MCH (27-31) pg MCHC (31-36) g/dl RDW (10.5-15) % Plt Count (150-450) 10^3/ul MPV (7.4-10.4) um3 Neut % (Auto) (38-83) % Lymph % (Auto) (25-47) % [place] % (Auto) (1-9) % Eos % (Auto) (0-6) % Baso % (Auto) (0-2) % Absolute Neuts (auto) (1.5-7.7) 10^3/ul Absolute Lymphs (auto) (1.0-4.8) 10^3/ul Absolute Monos (auto) (0-0.8) 10^3/ul Absolute Eos (auto) (0-0.6) 10^3/ul Absolute Basos (auto) (0-0.2) 10^3/ul Absolute Nucleated RBC 10^3/ul Nucleated RBC % APTT 38.4 H (26.0-36.3) seconds Sodium (133-145) mmol/L Potassium (3.5-5.0) mmol/L Chloride (101-111) mmol/L Carbon Dioxide (22-32) mmol/L Anion Gap (2-11) mmol/L BUN (6-24) mg/dL Creatinine (0.51-0.95) mg/dL Est GFR ( Amer) (>60) Est GFR (Non-Af Amer) (>60) BUN/Creatinine Ratio (8-20) Glucose (70-100) mg/dL Lactic Acid (0.5-2.0) mmol/L Calcium (8.6-10.3) mg/dL Total Bilirubin (0.2-1.0) mg/dL AST (13-39) U/L ALT (7-52) U/L Alkaline Phosphatase (34-104) U/L Troponin I (<0.04) ng/mL Total Protein (6.4-8.9) g/dL Albumin (3.2-5.2) g/dL Globulin (2-4) g/dL Albumin/Globulin Ratio (1-3) Blood Type A Positive Antibody Screen Negative Crossmatch See Detail Microbiology and Other Data: Microbiology 01/04/17 20:45 Transfusion Reaction Culture - Preliminary Blood Bag Culture Under Incubation Transfusion Reaction Gram Stain - Final Assess/Plan/Problems-Billing Assessment: Ms. Jain is a 56 yo female with a PMH of dysfunctional uterine bleeding with recent initiation of xarelto for bilateral PEs on 12/19/16 who was admitted on with symptomatic anemia. - Patient Problems (1) Pulmonary emboli Comment: Per CTA, PE's have decreased in size. Xarelto was D/C'd and warfarin with hep gtt bridging was initiated on admission. Will need to be anticoagulated for life as this is her second unprovoked PE. - TTE 12/20/16 showing LVEF 55%, mildy reduced RV function - INR subtheraputic - continue Hep gtt with bridge to coumadin (2) Abnormal uterine bleeding Status: Acute Comment: Resolved. Appreciate consultation from Dr. Van. TVUS showed a normal endometrial stripe with only a small fibroid. Progesterone started 01/04, decreased today to once daily with plan to DC on discharge. Placement of IUD yesterday, with Dr. Ibarra. Plan for warfarin as xarelto is associated with higher bleeding risk in AUB. (3) Anemia Comment: Acute Blood Loss anemia, Secondary to AUB. Has had 7 units PRBC since admission - Hgb at 9.129 today Stool for occult blood was positive but suspect this is false due to vaginal bleeding, stool have been brown in color. Recheck stool for occult blood Continue to trend HH (4) GERD (gastroesophageal reflux disease) Comment: Continue BID omeprazole for now, on ranexa at home. (5) HTN (hypertension) Comment: Pt was orthostatic Continue to hold furosemide and decreased dose of metoprolol. (6) DVT prophylaxis Comment: heparin gtt (7) Full code status Status and Disposition: Inpatient with expected LOS > 2 days. Plan to DC to home once INR is therapeutic
[2017-01-08] MEDS ORDERED: Warfarin TAB(*) 5 MG PO SCH (15:51)
[2017-01-08] MEDS: Warfarin TAB(*) 6 MG PO SCH (17:10)
[2017-01-08] MEDS: Warfarin TAB(*) 1 MG PO SCH (17:10)
[2017-01-09 05:44] LABS: Hematocrit 28 % (35-47); Hemoglobin 8.8 g/dl (12.0-16.0); Mean Corpuscular HGB Conc 32 g/dl (31-36); Mean Corpuscular Hemoglobin 24 pg (27-31); Mean Corpuscular Volume 77 fL (80-97); Mean Platelet Volume 9 um3 (7.4-10.4); White Blood Count 5.6 10^3/ul (3.5-10.8)
[2017-01-09] MEDS ORDERED: Heparin DRIP 25,000 UNITS(*) 25,000 UNITS/500 ML BAG ONE ×2 (05:44→22:36)
[2017-01-09] MEDS: Heparin DRIP 25,000 UNITS(*) 25,000 UNITS/500 ML BAG IV SCH ×2 (05:45→22:39)
[2017-01-09 05:48] LABS: Comments Flag Yes
[2017-01-09 05:49] LABS: Red Cell Distribution Width 23 % (10.5-15)
[2017-01-09 05:55] LABS: BUN/Creatinine Ratio 12.1 (8-20); Calcium 8.7 mg/dL (8.6-10.3); EGFR African American 119.1 (>60); EGFR Non-African American 92.6 (>60); Potassium 4.1 mmol/L (3.5-5.0)
[2017-01-09] MEDS: Omeprazole CAP* 20 MG PO SCH ×2 (07:17→16:47)
[2017-01-09] MEDS: Metoprolol Tartrate TAB* 25 MG PO SCH ×2 (07:55→22:40)
[2017-01-09] MEDS: MEDROXYPROGESTERONE 5 MG PO SCH (07:56)
[2017-01-09] MEDS: Ferrous Sulfate TAB* 325 MG PO SCH ×2 (07:56→22:41)
[2017-01-09] MEDS: Warfarin TAB(*) 6 MG PO SCH (16:47)
[2017-01-09] MEDS: Warfarin TAB(*) 1 MG PO SCH (16:47)
--- NOTE | 2017-01-09 16:58 | PN ---
Subjective Date of Service: 01/09/17 Interval History: Patient offers no complaints other than wishes she could go home. Denies SOB or CP. No further vaginal bleeding. No abdominal pain or cramping. Objective Active Medications: Acetaminophen (Tylenol Tab*) 650 mg PO Q6H PRN PRN Reason: PAIN Last Admin: 01/08/17 21:05 Dose: 650 mg Albuterol (Ventolin 2.5 Mg/3 Ml Neb.Tiffanie*) 2.5 mg INH Q4H PRN PRN Reason: SOB/WHEEZING Ferrous Sulfate (Ferrous Sulfate Tab*) 325 mg PO BID [facility] Last Admin: 01/09/17 07:56 Dose: 325 mg Heparin Sodium (Porcine) (Heparin Flush Picc/Ml/Cvc(*)) 1 ml FLUSH 0600,1800 [facility] PRN Reason: Protocol Last Admin: 01/09/17 16:47 Dose: 1 ml Heparin Sodium/Dextrose (Heparin Drip 25,000 Units(*)) 25,000 units in 500 mls @ 0 mls/hr IV .NO BOLUSES PROTOCOL [facility]; Per Protocol PRN Reason: Protocol Last Admin: 01/09/17 05:45 Dose: 33 mls/hr Medroxyprogesterone Acetate (Provera Tab*) 5 mg PO DAILY [facility] Last Admin: 01/09/17 07:56 Dose: 5 mg Metoprolol Tartrate (Lopressor Tab*) 12.5 mg PO Q12HR [facility] Last Admin: 01/09/17 07:55 Dose: 12.5 mg Omeprazole (Prilosec Cap*) 20 mg PO BID AC [facility] Last Admin: 01/09/17 16:47 Dose: 20 mg Pharmacy Profile Note (Coumadin Daily Reminder*) 1 note FOLLOW UP 1700 [facility] Last Admin: 01/09/17 16:48 Dose: 1 note Warfarin Sodium (Coumadin Tab(*)) 6 mg PO DAILY@1700 [facility] PRN Reason: Protocol Last Admin: 01/09/17 16:47 Dose: 6 mg Warfarin Sodium (Coumadin Tab(*)) 1 mg PO DAILY@1700 [facility] Last Admin: 01/09/17 16:47 Dose: 1 mg Vital Signs 01/08/17 01/08/17 01/08/17 19:42 21:07 23:23 Temperature 98.5 F 98.3 F Pulse Rate 89 81 Respiratory 20 20 18 Rate Blood Pressure 131/63 125/60 (mmHg) O2 Sat by Pulse 98 95 Oximetry 01/09/17 01/09/17 01/09/17 04:02 07:36 08:00 Temperature 97.5 F 98.3 F Pulse Rate 73 74 Respiratory 18 16 18 Rate Blood Pressure 119/57 127/73 (mmHg) O2 Sat by Pulse 90 94 Oximetry 01/09/17 15:26 Temperature 98.7 F Pulse Rate 76 Respiratory 12 Rate Blood Pressure 145/66 (mmHg) O2 Sat by Pulse 95 Oximetry Oxygen Devices in Use Now: None Appearance: morbidly obese female sitting up in a chair A+O x3 reading a book in NAD Eyes: No Scleral Icterus, PERRLA Ears/Nose/Mouth/Throat: NL Teeth, Lips, Gums, Mucous Membranes Moist Respiratory: Symmetrical Chest Expansion and Respiratory Effort, Clear to Auscultation Cardiovascular: NL Sounds; No Murmurs; No JVD, RRR, No Edema Abdominal: - - obese, soft, nontender Extremities: No Edema, No Clubbing, Cyanosis Skin: No Rash or Ulcers, No Nodules or Sclerosis Neurological: Alert and Oriented x 3, NL Sensation, NL Gait, NL Muscle Strength and Tone Lines/Tubes/Other Access: Clean, Dry and Intact Peripheral IV Nutrition: Taking PO's Result Diagrams: 01/09/17 05:30 01/09/17 05:30 Additional Lab and Data: Lab Results 01/03/17 01/03/17 01/03/17 Range/Units 16:20 16:20 16:20 WBC 8.4 (3.5-10.8) 10^3/ul RBC 3.45 L (4.0-5.4) 10^6/ul Hgb 7.2 L (12.0-16.0) g/dl Hct 24 L (35-47) % MCV 68 L (80-97) fL MCH 21 L (27-31) pg MCHC 31 (31-36) g/dl RDW 20 H (10.5-15) % Plt Count 238 (150-450) 10^3/ul MPV 9 (7.4-10.4) um3 Neut % (Auto) 74.6 (38-83) % Lymph % (Auto) 12.8 L (25-47) % [place] % (Auto) 8.5 (1-9) % Eos % (Auto) 3.4 (0-6) % Baso % (Auto) 0.7 (0-2) % Absolute Neuts (auto) 6.2 (1.5-7.7) 10^3/ul Absolute Lymphs (auto) 1.1 (1.0-4.8) 10^3/ul Absolute Monos (auto) 0.7 (0-0.8) 10^3/ul Absolute Eos (auto) 0.3 (0-0.6) 10^3/ul Absolute Basos (auto) 0.1 (0-0.2) 10^3/ul Absolute Nucleated RBC 0.02 10^3/ul Nucleated RBC % 0.2 APTT (26.0-36.3) seconds Sodium 137 (133-145) mmol/L Potassium 3.2 L (3.5-5.0) mmol/L Chloride 93 L (101-111) mmol/L Carbon Dioxide 38 H (22-32) mmol/L Anion Gap 6 (2-11) mmol/L BUN 13 (6-24) mg/dL Creatinine 0.77 (0.51-0.95) mg/dL Est GFR ( Amer) 99.7 (>60) Est GFR (Non-Af Amer) 77.5 (>60) BUN/Creatinine Ratio 16.9 (8-20) Glucose 137 H (70-100) mg/dL Lactic Acid 2.4 H* (0.5-2.0) mmol/L Calcium 9.1 (8.6-10.3) mg/dL Total Bilirubin 0.40 (0.2-1.0) mg/dL AST 13 (13-39) U/L ALT 10 (7-52) U/L Alkaline Phosphatase 52 (34-104) U/L Troponin I 0.01 (<0.04) ng/mL Total Protein 6.4 (6.4-8.9) g/dL Albumin 3.4 (3.2-5.2) g/dL Globulin 3.0 (2-4) g/dL Albumin/Globulin Ratio 1.1 (1-3) Blood Type Antibody Screen Crossmatch 01/03/17 01/03/17 Range/Units 16:20 16:22 WBC (3.5-10.8) 10^3/ul RBC (4.0-5.4) 10^6/ul Hgb (12.0-16.0) g/dl Hct (35-47) % MCV (80-97) fL MCH (27-31) pg MCHC (31-36) g/dl RDW (10.5-15) % Plt Count (150-450) 10^3/ul MPV (7.4-10.4) um3 Neut % (Auto) (38-83) % Lymph % (Auto) (25-47) % Norman % (Auto) (1-9) % Eos % (Auto) (0-6) % Baso % (Auto) (0-2) % Absolute Neuts (auto) (1.5-7.7) 10^3/ul Absolute Lymphs (auto) (1.0-4.8) 10^3/ul Absolute Monos (auto) (0-0.8) 10^3/ul Absolute Eos (auto) (0-0.6) 10^3/ul Absolute Basos (auto) (0-0.2) 10^3/ul Absolute Nucleated RBC 10^3/ul Nucleated RBC % APTT 38.4 H (26.0-36.3) seconds Sodium (133-145) mmol/L Potassium (3.5-5.0) mmol/L Chloride (101-111) mmol/L Carbon Dioxide (22-32) mmol/L Anion Gap (2-11) mmol/L BUN (6-24) mg/dL Creatinine (0.51-0.95) mg/dL Est GFR ( Amer) (>60) Est GFR (Non-Af Amer) (>60) BUN/Creatinine Ratio (8-20) Glucose (70-100) mg/dL Lactic Acid (0.5-2.0) mmol/L Calcium (8.6-10.3) mg/dL Total Bilirubin (0.2-1.0) mg/dL AST (13-39) U/L ALT (7-52) U/L Alkaline Phosphatase (34-104) U/L Troponin I (<0.04) ng/mL Total Protein (6.4-8.9) g/dL Albumin (3.2-5.2) g/dL Globulin (2-4) g/dL Albumin/Globulin Ratio (1-3) Blood Type A Positive Antibody Screen Negative Crossmatch See Detail Microbiology and Other Data: Microbiology 01/04/17 20:45 Transfusion Reaction Culture - Preliminary Blood Bag Culture Under Incubation Transfusion Reaction Gram Stain - Final Assess/Plan/Problems-Billing Assessment: Ms. Jain is a 56 yo female with a PMH of dysfunctional uterine bleeding with recent initiation of xarelto for bilateral PEs on 12/19/16 who was admitted on with symptomatic anemia. - Patient Problems (1) Pulmonary emboli Comment: Per CTA, PE's have decreased in size. Xarelto was D/C'd and warfarin with hep gtt bridging was initiated on admission. Will need to be anticoagulated for life as this is her second unprovoked PE. - TTE 12/20/16 showing LVEF 55%, mildy reduced RV function - INR subtheraputic - continue Hep gtt with bridge to coumadin (2) Abnormal uterine bleeding Status: Acute Comment: Resolved. Appreciate consultation from Dr. Van. TVUS showed a normal endometrial stripe with only a small fibroid. Progesterone started 01/04, decreased today to once daily with plan to DC on discharge. Placement of IUD 01/07, with Dr. Ibarra. Plan for warfarin as xarelto is associated with higher bleeding risk in AUB. (3) Anemia Comment: Acute Blood Loss anemia, Secondary to AUB. Has had 7 units PRBC since admission - HH now stable 1rst Stool for occult blood was positive but suspect this is false due to vaginal bleeding, 2nd stool for occult blood was negative Continue to trend HH (4) GERD (gastroesophageal reflux disease) Comment: Continue BID omeprazole for now, on ranexa at home. (5) HTN (hypertension) Comment: Pt was orthostatic Continue to hold furosemide and decreased dose of metoprolol. (6) DVT prophylaxis Comment: heparin gtt (7) Full code status Status and Disposition: Inpatient with expected LOS > 2 days. Plan to DC to home once INR is therapeutic
[2017-01-09] MEDS: Acetaminophen TAB* 325 MG PO PRN (19:33)
[2017-01-09] MEDS: Nystatin TOP POWDER* 15 GM BTL TOPICAL SCH (22:41)
--- NOTE | 2017-01-10 06:45 | PN ---
Subjective Date of Service: 01/10/17 Interval History: patient reports some mild abdominal cramping but denies any further vaginal bleeding. No SOB or CP. Offers no complaints. Objective Active Medications: Acetaminophen (Tylenol Tab*) 650 mg PO Q6H PRN PRN Reason: PAIN Last Admin: 01/09/17 19:33 Dose: 650 mg Albuterol (Ventolin 2.5 Mg/3 Ml Neb.Tiffanie*) 2.5 mg INH Q4H PRN PRN Reason: SOB/WHEEZING Ferrous Sulfate (Ferrous Sulfate Tab*) 325 mg PO BID [facility] Last Admin: 01/09/17 22:41 Dose: 325 mg Heparin Sodium (Porcine) (Heparin Flush Picc/Ml/Cvc(*)) 1 ml FLUSH 0600,1800 [facility] PRN Reason: Protocol Last Admin: 01/10/17 06:03 Dose: 1 ml Heparin Sodium/Dextrose (Heparin Drip 25,000 Units(*)) 25,000 units in 500 mls @ 0 mls/hr IV .NO BOLUSES PROTOCOL [facility]; Per Protocol PRN Reason: Protocol Last Admin: 01/09/17 22:39 Dose: 29 mls/hr Medroxyprogesterone Acetate (Provera Tab*) 5 mg PO DAILY [facility] Last Admin: 01/09/17 07:56 Dose: 5 mg Metoprolol Tartrate (Lopressor Tab*) 12.5 mg PO Q12HR [facility] Last Admin: 01/09/17 22:40 Dose: 12.5 mg Nystatin (Nystatin Top Powder*) 1 applic TOPICAL TID [facility] Last Admin: 01/09/17 22:41 Dose: 1 applic Omeprazole (Prilosec Cap*) 20 mg PO BID AC [facility] Last Admin: 01/09/17 16:47 Dose: 20 mg Warfarin Sodium (Coumadin Tab(*)) 5 mg PO DAILY@1700 [facility] PRN Reason: Protocol Vital Signs 01/09/17 01/09/17 01/09/17 07:36 08:00 15:26 Temperature 98.3 F 98.7 F Pulse Rate 74 76 Respiratory 16 18 12 Rate Blood Pressure 127/73 145/66 (mmHg) O2 Sat by Pulse 94 95 Oximetry 01/09/17 01/09/17 01/10/17 19:57 20:00 03:50 Temperature 98.5 F 98.4 F Pulse Rate 73 78 Respiratory 20 18 Rate Blood Pressure 111/58 138/66 (mmHg) O2 Sat by Pulse 97 95 Oximetry Oxygen Devices in Use Now: Nasal Cannula - 3L NC Appearance: morbidly obese femalesitting up in bed in NAD. A+O x3 Eyes: No Scleral Icterus, PERRLA Neck: NL Appearance and Movements; NL JVP Respiratory: Symmetrical Chest Expansion and Respiratory Effort, Clear to Auscultation Cardiovascular: NL Sounds; No Murmurs; No JVD, RRR, No Edema Abdominal: NL Sounds; No Tenderness; No Distention, - - obese Extremities: No Edema, No Clubbing, Cyanosis Skin: No Rash or Ulcers, No Nodules or Sclerosis Neurological: Alert and Oriented x 3, NL Sensation, NL Muscle Strength and Tone Lines/Tubes/Other Access: Clean, Dry and Intact Peripheral IV Nutrition: Taking PO's Result Diagrams: 01/09/17 05:30 01/09/17 05:30 Additional Lab and Data: Lab Results 01/03/17 01/03/17 01/03/17 Range/Units 16:20 16:20 16:20 WBC 8.4 (3.5-10.8) 10^3/ul RBC 3.45 L (4.0-5.4) 10^6/ul Hgb 7.2 L (12.0-16.0) g/dl Hct 24 L (35-47) % MCV 68 L (80-97) fL MCH 21 L (27-31) pg MCHC 31 (31-36) g/dl RDW 20 H (10.5-15) % Plt Count 238 (150-450) 10^3/ul MPV 9 (7.4-10.4) um3 Neut % (Auto) 74.6 (38-83) % Lymph % (Auto) 12.8 L (25-47) % [place] % (Auto) 8.5 (1-9) % Eos % (Auto) 3.4 (0-6) % Baso % (Auto) 0.7 (0-2) % Absolute Neuts (auto) 6.2 (1.5-7.7) 10^3/ul Absolute Lymphs (auto) 1.1 (1.0-4.8) 10^3/ul Absolute Monos (auto) 0.7 (0-0.8) 10^3/ul Absolute Eos (auto) 0.3 (0-0.6) 10^3/ul Absolute Basos (auto) 0.1 (0-0.2) 10^3/ul Absolute Nucleated RBC 0.02 10^3/ul Nucleated RBC % 0.2 APTT (26.0-36.3) seconds Sodium 137 (133-145) mmol/L Potassium 3.2 L (3.5-5.0) mmol/L Chloride 93 L (101-111) mmol/L Carbon Dioxide 38 H (22-32) mmol/L Anion Gap 6 (2-11) mmol/L BUN 13 (6-24) mg/dL Creatinine 0.77 (0.51-0.95) mg/dL Est GFR ( Amer) 99.7 (>60) Est GFR (Non-Af Amer) 77.5 (>60) BUN/Creatinine Ratio 16.9 (8-20) Glucose 137 H (70-100) mg/dL Lactic Acid 2.4 H* (0.5-2.0) mmol/L Calcium 9.1 (8.6-10.3) mg/dL Total Bilirubin 0.40 (0.2-1.0) mg/dL AST 13 (13-39) U/L ALT 10 (7-52) U/L Alkaline Phosphatase 52 (34-104) U/L Troponin I 0.01 (<0.04) ng/mL Total Protein 6.4 (6.4-8.9) g/dL Albumin 3.4 (3.2-5.2) g/dL Globulin 3.0 (2-4) g/dL Albumin/Globulin Ratio 1.1 (1-3) Blood Type Antibody Screen Crossmatch 01/03/17 01/03/17 Range/Units 16:20 16:22 WBC (3.5-10.8) 10^3/ul RBC (4.0-5.4) 10^6/ul Hgb (12.0-16.0) g/dl Hct (35-47) % MCV (80-97) fL MCH (27-31) pg MCHC (31-36) g/dl RDW (10.5-15) % Plt Count (150-450) 10^3/ul MPV (7.4-10.4) um3 Neut % (Auto) (38-83) % Lymph % (Auto) (25-47) % [place] % (Auto) (1-9) % Eos % (Auto) (0-6) % Baso % (Auto) (0-2) % Absolute Neuts (auto) (1.5-7.7) 10^3/ul Absolute Lymphs (auto) (1.0-4.8) 10^3/ul Absolute Monos (auto) (0-0.8) 10^3/ul Absolute Eos (auto) (0-0.6) 10^3/ul Absolute Basos (auto) (0-0.2) 10^3/ul Absolute Nucleated RBC 10^3/ul Nucleated RBC % APTT 38.4 H (26.0-36.3) seconds Sodium (133-145) mmol/L Potassium (3.5-5.0) mmol/L Chloride (101-111) mmol/L Carbon Dioxide (22-32) mmol/L Anion Gap (2-11) mmol/L BUN (6-24) mg/dL Creatinine (0.51-0.95) mg/dL Est GFR ( Amer) (>60) Est GFR (Non-Af Amer) (>60) BUN/Creatinine Ratio (8-20) Glucose (70-100) mg/dL Lactic Acid (0.5-2.0) mmol/L Calcium (8.6-10.3) mg/dL Total Bilirubin (0.2-1.0) mg/dL AST (13-39) U/L ALT (7-52) U/L Alkaline Phosphatase (34-104) U/L Troponin I (<0.04) ng/mL Total Protein (6.4-8.9) g/dL Albumin (3.2-5.2) g/dL Globulin (2-4) g/dL Albumin/Globulin Ratio (1-3) Blood Type A Positive Antibody Screen Negative Crossmatch See Detail Microbiology and Other Data: Microbiology 01/04/17 20:45 Transfusion Reaction Culture - Preliminary Blood Bag Culture Under Incubation Transfusion Reaction Gram Stain - Final Assess/Plan/Problems-Billing Assessment: Ms. Jain is a 56 yo female with a PMH of dysfunctional uterine bleeding with recent initiation of xarelto for bilateral PEs on 12/19/16 who was admitted on with symptomatic anemia. - Patient Problems (1) Pulmonary emboli Comment: Per CTA, PE's have decreased in size. Xarelto was D/C'd and warfarin with hep gtt bridging was initiated on admission. Will need to be anticoagulated for life as this is her second unprovoked PE. - TTE 12/20/16 showing LVEF 55%, mildy reduced RV function - INR subtheraputic - continue Hep gtt with bridge to coumadin (2) Abnormal uterine bleeding Status: Acute Comment: Resolved. Appreciate consultation from Dr. Van. TVUS showed a normal endometrial stripe with only a small fibroid. Progesterone started 01/04, decreased to once daily 01/09 with plan to DC Progesterone on discharge. Placement of IUD 01/07, with Dr. Ibarra, some mild intermittent cramping. Plan for warfarin as xarelto is associated with higher bleeding risk in AUB. (3) Anemia Comment: Acute Blood Loss anemia, Secondary to AUB. Has had 7 units PRBC since admission - HH now stable 1rst Stool for occult blood was positive but suspect this is false due to vaginal bleeding, 2nd stool for occult blood was negative Continue to trend HH (4) GERD (gastroesophageal reflux disease) Comment: Continue BID omeprazole for now, on ranexa at home. (5) HTN (hypertension) Comment: Pt was orthostatic Continue to hold furosemide and decreased dose of metoprolol. (6) DVT prophylaxis Comment: heparin gtt (7) Full code status Status and Disposition: Inpatient with expected LOS > 2 days. Plan to DC to home once INR is therapeutic
[2017-01-10] MEDS: MEDROXYPROGESTERONE 5 MG PO SCH (08:54)
[2017-01-10] MEDS: Metoprolol Tartrate TAB* 25 MG PO SCH ×2 (08:54→20:34)
[2017-01-10] MEDS: Nystatin TOP POWDER* 15 GM BTL TOPICAL SCH ×3 (08:55→20:42)
[2017-01-10] MEDS: Omeprazole CAP* 20 MG PO SCH ×2 (08:55→16:30)
[2017-01-10] MEDS: Ferrous Sulfate TAB* 325 MG PO SCH ×2 (08:55→20:34)
[2017-01-10] MEDS ORDERED: Ondansetron INJ* 2 MG/ML VIAL IV PRN (13:57)
[2017-01-10] MEDS ORDERED: Heparin DRIP 25,000 UNITS(*) 25,000 UNITS/500 ML BAG ONE (16:28)
[2017-01-10] MEDS: Heparin DRIP 25,000 UNITS(*) 25,000 UNITS/500 ML BAG IV SCH (16:30)
[2017-01-10] MEDS ORDERED: Warfarin TAB(*) 5 MG PO SCH (17:00)
[2017-01-11] MEDS: Acetaminophen TAB* 325 MG PO PRN (04:42)
[2017-01-11 05:05] LABS: Comments Flag Yes; Hematocrit 30 % (35-47); Hemoglobin 9.2 g/dl (12.0-16.0); Mean Corpuscular HGB Conc 31 g/dl (31-36); Mean Corpuscular Hemoglobin 24 pg (27-31); Mean Corpuscular Volume 79 fL (80-97); Mean Platelet Volume 9 um3 (7.4-10.4); Red Blood Count 3.82 10^6/ul (4.0-5.4)
[2017-01-11 05:06] LABS: BUN/Creatinine Ratio 11.7 (8-20); Calcium 8.9 mg/dL (8.6-10.3); EGFR African American 99.7 (>60); EGFR Non-African American 77.5 (>60); Potassium 4.1 mmol/L (3.5-5.0); Red Cell Distribution Width 24 % (10.5-15)
[2017-01-11] MEDS: Metoprolol Tartrate TAB* 25 MG PO SCH ×2 (09:23→22:16)
[2017-01-11] MEDS: Nystatin TOP POWDER* 15 GM BTL TOPICAL SCH ×3 (09:24→22:19)
[2017-01-11] MEDS: Ferrous Sulfate TAB* 325 MG PO SCH ×2 (09:24→22:16)
[2017-01-11] MEDS: Omeprazole CAP* 20 MG PO SCH ×2 (09:24→16:30)
[2017-01-11] MEDS: MEDROXYPROGESTERONE 5 MG PO SCH (09:24)
[2017-01-11] MEDS: Heparin DRIP 25,000 UNITS(*) 25,000 UNITS/500 ML BAG IV SCH (12:23)
--- NOTE | 2017-01-11 14:25 | PN ---
Subjective Date of Service: 01/11/17 Interval History: Patient seen and examined at bedside. Pt states that she is feeling well. Denies fever, chills, shortness of breath, chest discomfort, N/V/D. Pt states that the vaginal bleeding has stopped. Family History: Unchanged from Admission Social History: Unchanged from Admission Past Medical History: Unchanged from Admission Objective Active Medications: Acetaminophen (Tylenol Tab*) 650 mg PO Q6H PRN Reason: PAIN Albuterol (Ventolin 2.5 Mg/3 Ml Neb.Tiffanie*) 2.5 mg INH Q4H PRN Reason: SOB/ WHEEZING Ferrous Sulfate (Ferrous Sulfate Tab*) 325 mg PO BID [facility] Heparin Sodium (Porcine) (Heparin Flush Picc/Ml/Cvc(*)) 1 ml FLUSH 0600,1800 [facility] Reason: Protocol Heparin Sodium/Dextrose (Heparin Drip 25,000 Units(*)) 25,000 units in 500 mls @ 0 mls/hr IV .NO BOLUSES PROTOCOL [facility]; Per Protocol Medroxyprogesterone Acetate (Provera Tab*) 5 mg PO DAILY [facility] Metoprolol Tartrate (Lopressor Tab*) 12.5 mg PO Q12HR [facility] Nystatin (Nystatin Top Powder*) 1 applic TOPICAL TID [facility] Omeprazole (Prilosec Cap*) 20 mg PO BID AC [facility] Ondansetron HCl (Zofran Inj*) 4 mg IV Q4H PRN Reason: NAUSEA Pharmacy Profile Note (Coumadin Per Pharmacy*) 1 note FOLLOW UP .PER PHARMACY PROTOC [facility] Reason: Protocol Warfarin Sodium (Coumadin Tab(*)) 6 mg PO 1700 ONE Stop: 01/11/17 17:01 Vital Signs 01/10/17 01/10/17 01/10/17 15:54 20:00 20:24 Temperature 97.7 F Pulse Rate 70 68 Respiratory 16 16 16 Rate Blood Pressure 119/57 130/61 (mmHg) O2 Sat by Pulse 96 93 Oximetry 01/10/17 01/11/17 01/11/17 23:55 03:31 07:25 Temperature 97.4 F 97.6 F 97.9 F Pulse Rate 77 86 70 Respiratory 20 18 Rate Blood Pressure 129/51 120/63 114/62 (mmHg) O2 Sat by Pulse 94 94 94 Oximetry 01/11/17 08:00 Temperature Pulse Rate Respiratory 18 Rate Blood Pressure (mmHg) O2 Sat by Pulse Oximetry Oxygen Devices in Use Now: None Appearance: NAD, sitting up in a chair Eyes: No Scleral Icterus, PERRLA Ears/Nose/Mouth/Throat: NL Teeth, Lips, Gums, Mucous Membranes Moist Neck: NL Appearance and Movements; NL JVP, Trachea Midline Respiratory: Symmetrical Chest Expansion and Respiratory Effort, Clear to Auscultation Cardiovascular: NL Sounds; No Murmurs; No JVD, RRR Abdominal: NL Sounds; No Tenderness; No Distention Extremities: No Edema Skin: No Rash or Ulcers Neurological: Alert and Oriented x 3, NL Muscle Strength and Tone Lines/Tubes/Other Access: Clean, Dry and Intact Peripheral IV - site benign Nutrition: Taking PO's Result Diagrams: 01/11/17 04:30 01/11/17 04:30 Additional Lab and Data: Microbiology and Other Data: Microbiology 01/04/17 20:45 Transfusion Reaction Culture - Preliminary Blood Bag Culture Under Incubation Transfusion Reaction Gram Stain - Final Assess/Plan/Problems-Billing Assessment: Ms. Jain is a 56 yo female with a PMH of dysfunctional uterine bleeding with recent initiation of xarelto for bilateral PEs on 12/19/16 who was admitted on with symptomatic anemia. - Patient Problems (1) Pulmonary emboli Code(s): I26.99 - OTHER PULMONARY EMBOLISM WITHOUT ACUTE COR PULMONALE SNOMED Code(s): 71513746 Comment: - Per CTA, PE's have decreased in size. - TTE 12/20/16 showing LVEF 55%, mildy reduced RV function - Xarelto was D/C'd and warfarin with hep gtt bridging was initiated on admission. - Will need to be anticoagulated for life as this is her second unprovoked PE. - INR subtheraputic - continue Hep gtt with bridge to coumadin (2) Abnormal uterine bleeding Code(s): N93.9 - ABNORMAL UTERINE AND VAGINAL BLEEDING, UNSPECIFIED SNOMED Code(s): 00602770036391 Comment: - Resolved. - Appreciate consultation from Dr. Van. - TVUS showed a normal endometrial stripe with only a small fibroid. - Progesterone started 01/04, decreased to once daily 01/09 with plan to DC Progesterone on discharge. - Placement of IUD 01/07, with Dr. Ibarra, some mild intermittent cramping. - Plan for warfarin as xarelto is associated with higher bleeding risk in AUB. (3) Anemia Code(s): D64.9 - ANEMIA, UNSPECIFIED SNOMED Code(s): 254229698 Comment: - Acute Blood Loss anemia, Secondary to AUB. - Has had 7 units PRBC since admission - HH now stable - 1 st Stool for occult blood was positive but suspect this is false due to vaginal bleeding, 2nd stool for occult blood was negative - Continue to trend HH (4) GERD (gastroesophageal reflux disease) Code(s): K21.9 - GASTRO-ESOPHAGEAL REFLUX DISEASE WITHOUT ESOPHAGITIS SNOMED Code(s): 122969725 Comment: - Continue BID omeprazole for now, on ranexa at home. (5) HTN (hypertension) Code(s): I10 - ESSENTIAL (PRIMARY) HYPERTENSION SNOMED Code(s): 14329706 Comment: - Pt was orthostatic - Continue to hold furosemide and decreased dose of metoprolol. (6) Morbid obesity Code(s): E66.01 - MORBID (SEVERE) OBESITY DUE TO EXCESS CALORIES SNOMED Code(s ): 227484353 Comment: - BMI 61.0. - Pt has appt with bariatric surgeon in [place]. (7) DVT prophylaxis Code(s): AXV5136 - SNOMED Code(s): 631209632 Comment: - Heparin gtt bridge to Warfarin (8) Full code status Code(s): Z78.9 - OTHER SPECIFIED HEALTH STATUS SNOMED Code(s): 915377727 Status and Disposition: Inpatient with expected LOS > 2 days. Plan to DC to home once INR is therapeutic
[2017-01-11] MEDS ORDERED: Warfarin TAB(*) 6 MG PO ONE (17:00)
[2017-01-12] MEDS: Heparin DRIP 25,000 UNITS(*) 25,000 UNITS/500 ML BAG IV SCH ×2 (05:51→23:36)
[2017-01-12] MEDS: Omeprazole CAP* 20 MG PO SCH ×2 (08:19→16:35)
[2017-01-12] MEDS: Ferrous Sulfate TAB* 325 MG PO SCH ×2 (08:19→20:51)
[2017-01-12] MEDS: Metoprolol Tartrate TAB* 25 MG PO SCH ×2 (08:20→20:52)
[2017-01-12] MEDS: MEDROXYPROGESTERONE 5 MG PO SCH (08:20)
[2017-01-12] MEDS: Nystatin TOP POWDER* 15 GM BTL TOPICAL SCH ×3 (10:27→20:52)
--- NOTE | 2017-01-12 12:01 | PN ---
Subjective Date of Service: 01/12/17 Interval History: Patient seen and examined at bedside. Pt states that she is feeling well, she is frustrated that her INR is still not therapeutic. She is adamant that she is unable to do lovenox injections at home. Denies fever, chills, shortness of breath, chest discomfort, N/V/D, abdominal cramping, or vaginal bleeding. She report increased vaginal discharge that is clear. Family History: Unchanged from Admission Social History: Unchanged from Admission Past Medical History: Unchanged from Admission Objective Active Medications: Acetaminophen (Tylenol Tab*) 650 mg PO Q6H PRN Reason: PAIN Albuterol (Ventolin 2.5 Mg/3 Ml Neb.Tiffanie*) 2.5 mg INH Q4H PRN Reason: SOB/ WHEEZING Ferrous Sulfate (Ferrous Sulfate Tab*) 325 mg PO BID [facility] Heparin Sodium (Porcine) (Heparin Flush Picc/Ml/Cvc(*)) 1 ml FLUSH 0600,1800 [facility] Reason: Protocol Heparin Sodium/Dextrose (Heparin Drip 25,000 Units(*)) 25,000 units in 500 mls @ 0 mls/hr IV .NO BOLUSES PROTOCOL [facility]; Per Protocol Medroxyprogesterone Acetate (Provera Tab*) 5 mg PO DAILY [facility] Metoprolol Tartrate (Lopressor Tab*) 12.5 mg PO Q12HR [facility] Nystatin (Nystatin Top Powder*) 1 applic TOPICAL TID [facility] Omeprazole (Prilosec Cap*) 20 mg PO BID AC [facility] Ondansetron HCl (Zofran Inj*) 4 mg IV Q4H PRN Reason: NAUSEA Pharmacy Profile Note (Coumadin Per Pharmacy*) 1 note FOLLOW UP .PER PHARMACY PROTOC [facility] Reason: Protocol Warfarin Sodium (Coumadin Tab(*)) 4 mg PO 1700 ONE Stop: 01/12/17 17:01 Warfarin Sodium (Coumadin Tab(*)) 3 mg PO 1700 ONE Stop: 01/12/17 17:01 Vital Signs 01/11/17 01/11/17 01/11/17 15:15 15:42 19:14 Temperature 99.0 F 98.4 F Pulse Rate 71 72 Respiratory 18 20 16 Rate Blood Pressure 119/55 117/51 (mmHg) O2 Sat by Pulse 98 95 96 Oximetry 01/11/17 01/11/17 01/12/17 20:00 23:13 07:53 Temperature 98.0 F 98.1 F Pulse Rate 78 73 Respiratory 18 16 20 Rate Blood Pressure 113/62 110/64 (mmHg) O2 Sat by Pulse 96 94 Oximetry 01/12/17 01/12/17 07:57 08:15 Temperature Pulse Rate 72 Respiratory 20 18 Rate Blood Pressure (mmHg) O2 Sat by Pulse 98 Oximetry Oxygen Devices in Use Now: None Appearance: NAD, sitting up in a chair Ears/Nose/Mouth/Throat: Mucous Membranes Moist Respiratory: Symmetrical Chest Expansion and Respiratory Effort, Clear to Auscultation Cardiovascular: NL Sounds; No Murmurs; No JVD, RRR Abdominal: NL Sounds; No Tenderness; No Distention Extremities: No Edema Skin: No Rash or Ulcers Neurological: Alert and Oriented x 3, NL Muscle Strength and Tone Lines/Tubes/Other Access: Clean, Dry and Intact Other Access - midline, site benign Nutrition: Taking PO's Result Diagrams: 01/11/17 04:30 01/11/17 04:30 Additional Lab and Data: Microbiology and Other Data: Microbiology 01/04/17 20:45 Transfusion Reaction Culture - Preliminary Blood Bag Culture Under Incubation Transfusion Reaction Gram Stain - Final Assess/Plan/Problems-Billing Assessment: Ms. Jain is a 56 yo female with a PMH of dysfunctional uterine bleeding with recent initiation of xarelto for bilateral PEs on 12/19/16 who was admitted on with symptomatic anemia. - Patient Problems (1) Pulmonary emboli Code(s): I26.99 - OTHER PULMONARY EMBOLISM WITHOUT ACUTE COR PULMONALE SNOMED Code(s): 00924914 Comment: - Per CTA, PE's have decreased in size. - TTE 12/20/16 showing LVEF 55%, mildy reduced RV function - Xarelto was D/C'd and warfarin with hep gtt bridging was initiated on admission. - Will need to be anticoagulated for life as this is her second unprovoked PE. - INR subtheraputic - continue Hep gtt with bridge to coumadin (2) Abnormal uterine bleeding Code(s): N93.9 - ABNORMAL UTERINE AND VAGINAL BLEEDING, UNSPECIFIED SNOMED Code(s): 88485517249438 Comment: - Resolved. - Appreciate consultation from Dr. Van. - TVUS showed a normal endometrial stripe with only a small fibroid. - Progesterone started 01/04, decreased to once daily 01/09 with plan to DC Progesterone on discharge. - Placement of IUD 01/07, with Dr. Ibarra, some mild intermittent cramping. - Plan for warfarin as xarelto is associated with higher bleeding risk in AUB. (3) Anemia Code(s): D64.9 - ANEMIA, UNSPECIFIED SNOMED Code(s): 440680158 Comment: - Acute Blood Loss anemia, Secondary to AUB. - Has had 7 units PRBC since admission - HH now stable - 1 st Stool for occult blood was positive but suspect this is false due to vaginal bleeding, 2nd stool for occult blood was negative - Continue to trend HH (4) GERD (gastroesophageal reflux disease) Code(s): K21.9 - GASTRO-ESOPHAGEAL REFLUX DISEASE WITHOUT ESOPHAGITIS SNOMED Code(s): 577957111 Comment: - Continue BID omeprazole for now, on ranexa at home. (5) HTN (hypertension) Code(s): I10 - ESSENTIAL (PRIMARY) HYPERTENSION SNOMED Code(s): 37376913 Comment: - Pt was orthostatic - Continue to hold furosemide and decreased dose of metoprolol. (6) Morbid obesity Code(s): E66.01 - MORBID (SEVERE) OBESITY DUE TO EXCESS CALORIES SNOMED Code(s ): 091838854 Comment: - BMI 61.0. - Pt has appt with bariatric surgeon in [place]. (7) DVT prophylaxis Code(s): BSR7373 - SNOMED Code(s): 499370276 Comment: - Heparin gtt bridge to Warfarin (8) Full code status Code(s): Z78.9 - OTHER SPECIFIED HEALTH STATUS SNOMED Code(s): 506780207 Status and Disposition: Inpatient with expected LOS > 2 days. Plan to DC to home once INR is therapeutic
[2017-01-12] MEDS ORDERED: Warfarin TAB(*) 4 MG PO ONE (17:00)
[2017-01-12] MEDS ORDERED: Warfarin TAB(*) 3 MG PO ONE (17:00)
[2017-01-13] MEDS: Omeprazole CAP* 20 MG PO SCH ×2 (08:17→16:23)
[2017-01-13] MEDS: Nystatin TOP POWDER* 15 GM BTL TOPICAL SCH ×3 (08:18→21:34)
[2017-01-13] MEDS: Ferrous Sulfate TAB* 325 MG PO SCH ×2 (08:18→21:33)
[2017-01-13] MEDS: Metoprolol Tartrate TAB* 25 MG PO SCH ×2 (08:18→21:32)
[2017-01-13] MEDS: MEDROXYPROGESTERONE 5 MG PO SCH (08:18)
[2017-01-13] MEDS: Heparin DRIP 25,000 UNITS(*) 25,000 UNITS/500 ML BAG IV SCH (15:35)
[2017-01-13] MEDS ORDERED: Warfarin TAB(*) 4 MG PO ONE (17:00)
--- NOTE | 2017-01-13 19:38 | PN ---
Subjective Date of Service: 01/13/17 Interval History: Patient seen and examined at bedside. Pt states that she is feeling well and is anxious to go home. Discussed with Pt that she could be switched to Lovenox and at this time she doesn't want to do injections. She doesn't like needles and doesn't feel she can give her own injections. Discussed with Pt that we could set up VNS to assist, but she continues to not want to do injections at this time. Denies fever, chills, shortness of breath, chest discomfort, N/V/D. Pt reports pain under her right arm. Family History: Unchanged from Admission Social History: Unchanged from Admission Past Medical History: Unchanged from Admission Objective Active Medications: Acetaminophen (Tylenol Tab*) 650 mg PO Q6H PRN Reason: PAIN Albuterol (Ventolin 2.5 Mg/3 Ml Neb.Tiffanie*) 2.5 mg INH Q4H PRN Reason: SOB/ WHEEZING Ferrous Sulfate (Ferrous Sulfate Tab*) 325 mg PO BID [facility] Heparin Sodium (Porcine) (Heparin Flush Picc/Ml/Cvc(*)) 1 ml FLUSH 0600,1800 [facility] Reason: Protocol Heparin Sodium/Dextrose (Heparin Drip 25,000 Units(*)) 25,000 units in 500 mls @ 0 mls/hr IV .NO BOLUSES PROTOCOL [facility]; Per Protocol Reason: Protocol Medroxyprogesterone Acetate (Provera Tab*) 5 mg PO DAILY [facility] Metoprolol Tartrate (Lopressor Tab*) 12.5 mg PO Q12HR [facility] Nystatin (Nystatin Top Powder*) 1 applic TOPICAL TID [facility] Omeprazole (Prilosec Cap*) 20 mg PO BID AC [facility] Ondansetron HCl (Zofran Inj*) 4 mg IV Q4H PRN Reason: NAUSEA Pharmacy Profile Note (Coumadin Per Pharmacy*) 1 note FOLLOW UP .PER PHARMACY PROTOC [facility] Reason: Protocol Vital Signs 01/12/17 01/12/17 01/13/17 20:29 23:40 00:26 Temperature 97.6 F Pulse Rate 70 78 Respiratory 14 16 16 Rate Blood Pressure 104/58 (mmHg) O2 Sat by Pulse 95 93 Oximetry 01/13/17 01/13/17 01/13/17 07:22 08:00 09:42 Temperature 98.1 F Pulse Rate 77 74 Respiratory 18 16 15 Rate Blood Pressure 134/64 (mmHg) O2 Sat by Pulse 100 98 Oximetry 01/13/17 15:46 Temperature 98.7 F Pulse Rate 76 Respiratory 20 Rate Blood Pressure 137/68 (mmHg) O2 Sat by Pulse 97 Oximetry Oxygen Devices in Use Now: None Appearance: NAD, sitting up in a chair Eyes: No Scleral Icterus, PERRLA Ears/Nose/Mouth/Throat: Mucous Membranes Moist Respiratory: Symmetrical Chest Expansion and Respiratory Effort, Clear to Auscultation Cardiovascular: NL Sounds; No Murmurs; No JVD, RRR Abdominal: NL Sounds; No Tenderness; No Distention Skin: - - yeast rash under right arm and left breast Neurological: Alert and Oriented x 3, NL Muscle Strength and Tone Lines/Tubes/Other Access: Clean, Dry and Intact Other Access - midline, site benign Nutrition: Taking PO's Result Diagrams: 01/11/17 04:30 01/11/17 04:30 Additional Lab and Data: Microbiology and Other Data: Microbiology 01/04/17 20:45 Transfusion Reaction Culture - Preliminary Blood Bag Culture Under Incubation Transfusion Reaction Gram Stain - Final Assess/Plan/Problems-Billing Assessment: Ms. Jain is a 56 yo female with a PMH of dysfunctional uterine bleeding with recent initiation of xarelto for bilateral PEs on 12/19/16 who was admitted on with symptomatic anemia. - Patient Problems (1) Pulmonary emboli Code(s): I26.99 - OTHER PULMONARY EMBOLISM WITHOUT ACUTE COR PULMONALE SNOMED Code(s): 23422680 Comment: - Per CTA, PE's have decreased in size. - TTE 12/20/16 showing LVEF 55%, mildy reduced RV function - Xarelto was D/C'd and warfarin with hep gtt bridging was initiated on admission. - Will need to be anticoagulated for life as this is her second unprovoked PE. - INR subtheraputic - continue Hep gtt with bridge to coumadin (2) Abnormal uterine bleeding Code(s): N93.9 - ABNORMAL UTERINE AND VAGINAL BLEEDING, UNSPECIFIED SNOMED Code(s): 24138489407764 Comment: - Resolved. - Appreciate consultation from Dr. Van. - TVUS showed a normal endometrial stripe with only a small fibroid. - Progesterone started 01/04, decreased to once daily 01/09 with plan to DC Progesterone on discharge. - Placement of IUD 01/07, with Dr. Ibarra, some mild intermittent cramping. - Plan for warfarin as xarelto is associated with higher bleeding risk in AUB. (3) Anemia Code(s): D64.9 - ANEMIA, UNSPECIFIED SNOMED Code(s): 090206629 Comment: - Acute Blood Loss anemia, Secondary to AUB. - Has had 7 units PRBC since admission - HH now stable - 1 st Stool for occult blood was positive but suspect this is false due to vaginal bleeding, 2nd stool for occult blood was negative - Continue to trend HH (4) GERD (gastroesophageal reflux disease) Code(s): K21.9 - GASTRO-ESOPHAGEAL REFLUX DISEASE WITHOUT ESOPHAGITIS SNOMED Code(s): 323484694 Comment: - Continue BID omeprazole for now, on ranexa at home. (5) HTN (hypertension) Code(s): I10 - ESSENTIAL (PRIMARY) HYPERTENSION SNOMED Code(s): 24828265 Comment: - Pt was orthostatic - Continue to hold furosemide and decreased dose of metoprolol. (6) Morbid obesity Code(s): E66.01 - MORBID (SEVERE) OBESITY DUE TO EXCESS CALORIES SNOMED Code(s ): 317931691 Comment: - BMI 61.0. - Pt has appt with bariatric surgeon in [place]. (7) DVT prophylaxis Code(s): IAI7785 - SNOMED Code(s): 043206504 Comment: - Heparin gtt bridge to Warfarin (8) Full code status Code(s): Z78.9 - OTHER SPECIFIED HEALTH STATUS SNOMED Code(s): 044511901 Status and Disposition: Inpatient with expected LOS > 2 days. Plan to DC to home once INR is therapeutic
[2017-01-13] MEDS: Acetaminophen TAB* 325 MG PO PRN (21:33)
[2017-01-14 07:35] LABS: Add Diff/Slide Review? Slide Review Added; Comments Flag Yes; Hematocrit 33 % (35-47); Hemoglobin 10.2 g/dl (12.0-16.0); Mean Corpuscular HGB Conc 32 g/dl (31-36); Mean Corpuscular Hemoglobin 25 pg (27-31); Mean Corpuscular Volume 78 fL (80-97); Mean Platelet Volume 10 um3 (7.4-10.4); Red Blood Count 4.14 10^6/ul (4.0-5.4); Red Cell Distribution Width 24 % (10.5-15); White Blood Count 7.4 10^3/ul (3.5-10.8)
[2017-01-14 07:44] LABS: EGFR African American 121.3 (>60); EGFR Non-African American 94.3 (>60)
[2017-01-14] MEDS: Metoprolol Tartrate TAB* 25 MG PO SCH ×2 (07:45→22:11)
[2017-01-14] MEDS: Omeprazole CAP* 20 MG PO SCH ×2 (07:45→16:35)
[2017-01-14] MEDS: Ferrous Sulfate TAB* 325 MG PO SCH ×2 (07:45→22:12)
[2017-01-14] MEDS: MEDROXYPROGESTERONE 5 MG PO SCH (07:46)
[2017-01-14] MEDS: Heparin DRIP 25,000 UNITS(*) 25,000 UNITS/500 ML BAG IV SCH ×2 (07:47→22:24)
[2017-01-14] MEDS: Nystatin TOP POWDER* 15 GM BTL TOPICAL SCH ×3 (07:53→22:23)
--- NOTE | 2017-01-14 15:22 | PN ---
Subjective Date of Service: 01/14/17 Interval History: Patient seen and examined at bedside. Pt states that she feels well, continues to be anxious to go home. Was thinking about trying a Lovenox injection, but doesn't like heparin shots. Pt reports small amount of vaginal bleeding today, blood only on toilet paper when she wiped. Denies fever, chills, shortness of breath, chest discomfort, N/V/D. Family History: Unchanged from Admission Social History: Unchanged from Admission Past Medical History: Unchanged from Admission Objective Active Medications: Acetaminophen (Tylenol Tab*) 650 mg PO Q6H PRN Reason: PAIN Albuterol (Ventolin 2.5 Mg/3 Ml Neb.Tiffanie*) 2.5 mg INH Q4H PRN Reason: SOB/ WHEEZING Ferrous Sulfate (Ferrous Sulfate Tab*) 325 mg PO BID [facility] Heparin Sodium (Porcine) (Heparin Flush Picc/Ml/Cvc(*)) 1 ml FLUSH 0600,1800 [facility] Reason: Protocol Heparin Sodium/Dextrose (Heparin Drip 25,000 Units(*)) 25,000 units in 500 mls @ 0 mls/hr IV .NO BOLUSES PROTOCOL [facility]; Per Protocol Reason: Protocol Medroxyprogesterone Acetate (Provera Tab*) 5 mg PO DAILY [facility] Metoprolol Tartrate (Lopressor Tab*) 12.5 mg PO Q12HR [facility] Nystatin (Nystatin Top Powder*) 1 applic TOPICAL TID [facility] Omeprazole (Prilosec Cap*) 20 mg PO BID AC [facility] Ondansetron HCl (Zofran Inj*) 4 mg IV Q4H PRN Reason: NAUSEA Pharmacy Profile Note (Coumadin Per Pharmacy*) 1 note FOLLOW UP .PER PHARMACY PROTOC [facility] Reason: Protocol Warfarin Sodium (Coumadin Tab(*)) 8 mg PO ONCE ONE Stop: 01/14/17 17:01 Vital Signs 01/13/17 01/13/17 01/13/17 15:46 20:00 21:33 Temperature 98.7 F 98.8 F Pulse Rate 76 81 78 Respiratory 20 16 18 Rate Blood Pressure 137/68 121/49 (mmHg) O2 Sat by Pulse 97 95 97 Oximetry 01/14/17 01/14/17 01/14/17 01:07 07:29 09:37 Temperature 98.0 F 98.5 F Pulse Rate 81 73 72 Respiratory 16 18 16 Rate Blood Pressure 117/54 127/62 (mmHg) O2 Sat by Pulse 96 93 97 Oximetry 01/14/17 10:22 Temperature Pulse Rate Respiratory 16 Rate Blood Pressure (mmHg) O2 Sat by Pulse Oximetry Oxygen Devices in Use Now: None Appearance: NAD, sitting up in a chair Eyes: No Scleral Icterus, PERRLA Ears/Nose/Mouth/Throat: Mucous Membranes Moist Respiratory: Symmetrical Chest Expansion and Respiratory Effort, Clear to Auscultation Cardiovascular: NL Sounds; No Murmurs; No JVD, RRR Abdominal: NL Sounds; No Tenderness; No Distention Neurological: Alert and Oriented x 3, NL Muscle Strength and Tone Lines/Tubes/Other Access: Clean, Dry and Intact Other Access - midline, site benign Nutrition: Taking PO's Result Diagrams: 01/14/17 06:48 01/14/17 06:48 Additional Lab and Data: Microbiology and Other Data: Microbiology 01/04/17 20:45 Transfusion Reaction Culture - Preliminary Blood Bag Culture Under Incubation Transfusion Reaction Gram Stain - Final Assess/Plan/Problems-Billing Assessment: Ms. Jain is a 56 yo female with a PMH of dysfunctional uterine bleeding with recent initiation of xarelto for bilateral PEs on 12/19/16 who was admitted on with symptomatic anemia. - Patient Problems (1) Pulmonary emboli Code(s): I26.99 - OTHER PULMONARY EMBOLISM WITHOUT ACUTE COR PULMONALE SNOMED Code(s): 63798274 Comment: - Per CTA, PE's have decreased in size. - TTE 12/20/16 showing LVEF 55%, mildy reduced RV function - Xarelto was D/C'd and warfarin with hep gtt bridging was initiated on admission. - Will need to be anticoagulated for life as this is her second unprovoked PE. - INR subtheraputic but trending up - Continue Hep gtt with bridge to coumadin (2) Abnormal uterine bleeding Code(s): N93.9 - ABNORMAL UTERINE AND VAGINAL BLEEDING, UNSPECIFIED SNOMED Code(s): 12185258280990 Comment: - Resolved. Small amount of spotting today - Appreciate consultation from Dr. Van. - TVUS showed a normal endometrial stripe with only a small fibroid. - Progesterone started 01/04, decreased to once daily 01/09 with plan to DC Progesterone on discharge. - Placement of IUD 01/07, with Dr. Ibarra, some mild intermittent cramping. - Plan for warfarin as xarelto is associated with higher bleeding risk in AUB. (3) Anemia Code(s): D64.9 - ANEMIA, UNSPECIFIED SNOMED Code(s): 224188683 Comment: - Acute Blood Loss anemia, Secondary to AUB. - Has had 7 units PRBC since admission - HH now stable - 1 st Stool for occult blood was positive but suspect this is false due to vaginal bleeding, 2nd stool for occult blood was negative - Continue to trend HH (4) GERD (gastroesophageal reflux disease) Code(s): K21.9 - GASTRO-ESOPHAGEAL REFLUX DISEASE WITHOUT ESOPHAGITIS SNOMED Code(s): 922653127 Comment: - Continue BID omeprazole for now, on ranexa at home. (5) HTN (hypertension) Code(s): I10 - ESSENTIAL (PRIMARY) HYPERTENSION SNOMED Code(s): 41384025 Comment: - Pt was orthostatic - Continue to hold furosemide and decreased dose of metoprolol. (6) Morbid obesity Code(s): E66.01 - MORBID (SEVERE) OBESITY DUE TO EXCESS CALORIES SNOMED Code(s ): 257437997 Comment: - BMI 61.0. - Pt has appt with bariatric surgeon in [place]. (7) DVT prophylaxis Code(s): SPW0974 - SNOMED Code(s): 256167643 Comment: - Heparin gtt bridge to Warfarin (8) Full code status Code(s): Z78.9 - OTHER SPECIFIED HEALTH STATUS SNOMED Code(s): 961395425 Status and Disposition: Inpatient with expected LOS > 2 days. Plan to DC to home once INR is therapeutic
[2017-01-14] MEDS ORDERED: Warfarin TAB(*) 4 MG PO ONE (17:00)
[2017-01-15 07:13] LABS: Hematocrit 31 % (35-47); Hemoglobin 9.9 g/dl (12.0-16.0); Mean Corpuscular HGB Conc 32 g/dl (31-36); Mean Corpuscular Hemoglobin 25 pg (27-31); Mean Corpuscular Volume 77 fL (80-97); Mean Platelet Volume 9 um3 (7.4-10.4); Red Blood Count 4.04 10^6/ul (4.0-5.4); White Blood Count 7.6 10^3/ul (3.5-10.8)
[2017-01-15 07:17] LABS: Comments Flag Yes
[2017-01-15 07:18] LABS: Red Cell Distribution Width 24 % (10.5-15)
[2017-01-15] MEDS: MEDROXYPROGESTERONE 5 MG PO SCH (08:24)
[2017-01-15] MEDS: Metoprolol Tartrate TAB* 25 MG PO SCH ×2 (08:24→20:33)
[2017-01-15] MEDS: Omeprazole CAP* 20 MG PO SCH ×2 (08:24→17:05)
[2017-01-15] MEDS: Acetaminophen TAB* 325 MG PO PRN (08:25)
[2017-01-15] MEDS: Ferrous Sulfate TAB* 325 MG PO SCH ×2 (08:25→20:30)
[2017-01-15] MEDS: Nystatin TOP POWDER* 15 GM BTL TOPICAL SCH ×3 (08:25→20:33)
--- NOTE | 2017-01-15 09:06 | PN ---
Subjective Date of Service: 01/15/17 Interval History: Patient seen and examined at bedside. Pt states that she feels well today. Denies fever, chills, shortness of breath, chest discomfort, N/V/D. Denies vaginal bleeding today. Reports that the rash under her arms is improving. Family History: Unchanged from Admission Social History: Unchanged from Admission Past Medical History: Unchanged from Admission Objective Active Medications: Acetaminophen (Tylenol Tab*) 650 mg PO Q6H PRN Reason: PAIN Albuterol (Ventolin 2.5 Mg/3 Ml Neb.Tiffanie*) 2.5 mg INH Q4H PRN Reason: SOB/ WHEEZING Ferrous Sulfate (Ferrous Sulfate Tab*) 325 mg PO BID [facility] Heparin Sodium (Porcine) (Heparin Flush Picc/Ml/Cvc(*)) 1 ml FLUSH 0600,1800 [facility] Reason: Protocol Heparin Sodium/Dextrose (Heparin Drip 25,000 Units(*)) 25,000 units in 500 mls @ 0 mls/hr IV .NO BOLUSES PROTOCOL [facility]; Per Protocol Reason: Protocol Medroxyprogesterone Acetate (Provera Tab*) 5 mg PO DAILY [facility] Metoprolol Tartrate (Lopressor Tab*) 12.5 mg PO Q12HR [facility] Nystatin (Nystatin Top Powder*) 1 applic TOPICAL TID [facility] Omeprazole (Prilosec Cap*) 20 mg PO BID AC [facility] Ondansetron HCl (Zofran Inj*) 4 mg IV Q4H PRN Reason: NAUSEA Pharmacy Profile Note (Coumadin Per Pharmacy*) 1 note FOLLOW UP .PER PHARMACY PROTOC [facility] Reason: Protocol Warfarin Sodium (Coumadin Tab(*)) 6 mg PO 1700 ONE Stop: 01/15/17 17:01 Vital Signs 01/14/17 01/14/17 01/14/17 09:37 10:22 15:15 Temperature 98.5 F Pulse Rate 72 80 Respiratory 16 16 20 Rate Blood Pressure 119/58 (mmHg) O2 Sat by Pulse 97 96 Oximetry 01/14/17 01/14/17 01/15/17 22:00 22:41 07:22 Temperature 98.1 F 98.4 F Pulse Rate 82 79 Respiratory 20 16 14 Rate Blood Pressure 147/25 132/64 (mmHg) O2 Sat by Pulse 96 97 Oximetry 01/15/17 08:06 Temperature Pulse Rate 72 Respiratory 13 Rate Blood Pressure (mmHg) O2 Sat by Pulse 98 Oximetry Oxygen Devices in Use Now: None Appearance: NAD, sitting up in a chair Eyes: No Scleral Icterus, PERRLA Ears/Nose/Mouth/Throat: Mucous Membranes Moist Respiratory: Symmetrical Chest Expansion and Respiratory Effort, Clear to Auscultation - , diminished Cardiovascular: NL Sounds; No Murmurs; No JVD, RRR Abdominal: NL Sounds; No Tenderness; No Distention Extremities: No Edema Neurological: Alert and Oriented x 3, NL Muscle Strength and Tone Lines/Tubes/Other Access: Clean, Dry and Intact Other Access - midline, site benign Nutrition: Taking PO's Result Diagrams: 01/15/17 06:45 01/14/17 06:48 Additional Lab and Data: Microbiology and Other Data: Microbiology 01/04/17 20:45 Transfusion Reaction Culture - Preliminary Blood Bag Culture Under Incubation Transfusion Reaction Gram Stain - Final Assess/Plan/Problems-Billing Assessment: Ms. Jain is a 56 yo female with a PMH of dysfunctional uterine bleeding with recent initiation of xarelto for bilateral PEs on 12/19/16 who was admitted on with symptomatic anemia. - Patient Problems (1) Pulmonary emboli Code(s): I26.99 - OTHER PULMONARY EMBOLISM WITHOUT ACUTE COR PULMONALE SNOMED Code(s): 16389511 Comment: - Per CTA, PE's have decreased in size. - TTE 12/20/16 showing LVEF 55%, mildy reduced RV function - Xarelto was D/C'd and warfarin with hep gtt bridging was initiated on admission. - Will need to be anticoagulated for life as this is her second unprovoked PE. - INR theraputic this morning - Continue Hep gtt with bridge to coumadin (2) Abnormal uterine bleeding Code(s): N93.9 - ABNORMAL UTERINE AND VAGINAL BLEEDING, UNSPECIFIED SNOMED Code(s): 19732310695503 Comment: - Resolved. - Appreciate consultation from Dr. Van. - TVUS showed a normal endometrial stripe with only a small fibroid. - Progesterone started 01/04, decreased to once daily 01/09 with plan to DC Progesterone on discharge. - Placement of IUD 01/07, with Dr. Ibarra, some mild intermittent cramping. - Plan for warfarin as xarelto is associated with higher bleeding risk in AUB. (3) Anemia Code(s): D64.9 - ANEMIA, UNSPECIFIED SNOMED Code(s): 804988388 Comment: - Acute Blood Loss anemia, Secondary to AUB. - Has had 7 units PRBC since admission - HH now stable - 1 st Stool for occult blood was positive but suspect this is false due to vaginal bleeding, 2nd stool for occult blood was negative - Continue to trend HH (4) GERD (gastroesophageal reflux disease) Code(s): K21.9 - GASTRO-ESOPHAGEAL REFLUX DISEASE WITHOUT ESOPHAGITIS SNOMED Code(s): 323135010 Comment: - Continue BID omeprazole for now, on ranexa at home. (5) HTN (hypertension) Code(s): I10 - ESSENTIAL (PRIMARY) HYPERTENSION SNOMED Code(s): 59010504 Comment: - Pt was orthostatic - Continue to hold furosemide and decreased dose of metoprolol. (6) Morbid obesity Code(s): E66.01 - MORBID (SEVERE) OBESITY DUE TO EXCESS CALORIES SNOMED Code(s ): 179950739 Comment: - BMI 61.0. - Pt has appt with bariatric surgeon in [place]. (7) DVT prophylaxis Code(s): WGW4734 - SNOMED Code(s): 926838795 Comment: - Heparin gtt bridge to Warfarin (8) Full code status Code(s): Z78.9 - OTHER SPECIFIED HEALTH STATUS SNOMED Code(s): 649609261 Status and Disposition: Inpatient. Plan to discharge to home in the morning as long as INR is still therapeutic.
[2017-01-15] MEDS ORDERED: Warfarin TAB(*) 6 MG PO ONE (17:00)
[2017-01-15] MEDS: Heparin DRIP 25,000 UNITS(*) 25,000 UNITS/500 ML BAG IV SCH (18:01)
[2017-01-16 00:45] LABS: Hematocrit 33 % (35-47); Hemoglobin 10.4 g/dl (12.0-16.0); Mean Corpuscular HGB Conc 32 g/dl (31-36); Mean Corpuscular Hemoglobin 25 pg (27-31); Mean Corpuscular Volume 78 fL (80-97); Mean Platelet Volume 9 um3 (7.4-10.4); Red Blood Count 4.26 10^6/ul (4.0-5.4); White Blood Count 8.5 10^3/ul (3.5-10.8)
[2017-01-16 00:51] LABS: Comments Flag Yes
[2017-01-16 00:52] LABS: Red Cell Distribution Width 24 % (10.5-15)
[2017-01-16 01:10] LABS: EGFR African American 113.2 (>60)
[2017-01-16] MEDS: Acetaminophen TAB* 325 MG PO PRN (03:22)
[2017-01-16 07:30] VITALS: BP 141/57
[2017-01-16] MEDS ORDERED: Albuterol HFA INHALER* 8 gm MDI INH PRN (09:12)
--- NOTE | 2017-01-16 09:13 | PN ---
Subjective Date of Service: 01/16/17 Interval History: Patient seen and examined at bedside. She is OOB to chair. Ms. Jain denies any new CP, SOB, abd pain, n/v. She reports minimal uterine bleeding and expressed frustration with this. We did discuss that her HH has improved. No other acute concerns. Patient is hopeful to go home. Family History: Unchanged from Admission Social History: Unchanged from Admission Past Medical History: Unchanged from Admission Objective Active Medications: Acetaminophen (Tylenol Tab*) 650 mg PO Q6H PRN PRN Reason: PAIN Last Admin: 01/16/17 03:22 Dose: 650 mg Albuterol (Ventolin 2.5 Mg/3 Ml Neb.Tiffanie*) 2.5 mg INH Q4H PRN PRN Reason: SOB/WHEEZING Ferrous Sulfate (Ferrous Sulfate Tab*) 325 mg PO BID [facility] Last Admin: 01/15/17 20:30 Dose: 325 mg Heparin Sodium (Porcine) (Heparin Flush Picc/Ml/Cvc(*)) 1 ml FLUSH 0600,1800 [facility] PRN Reason: Protocol Last Admin: 01/16/17 05:37 Dose: Not Given Heparin Sodium/Dextrose (Heparin Drip 25,000 Units(*)) 25,000 units in 500 mls @ 0 mls/hr IV .NO BOLUSES PROTOCOL [facility]; Per Protocol PRN Reason: Protocol Last Admin: 01/15/17 18:01 Dose: 33 mls/hr Medroxyprogesterone Acetate (Provera Tab*) 5 mg PO DAILY [facility] Last Admin: 01/15/17 08:24 Dose: 5 mg Metoprolol Tartrate (Lopressor Tab*) 12.5 mg PO Q12HR [facility] Last Admin: 01/15/17 20:33 Dose: 12.5 mg Nystatin (Nystatin Top Powder*) 1 applic TOPICAL TID [facility] Last Admin: 01/15/17 20:33 Dose: 1 applic Omeprazole (Prilosec Cap*) 20 mg PO BID AC [facility] Last Admin: 01/15/17 17:05 Dose: 20 mg Ondansetron HCl (Zofran Inj*) 4 mg IV Q4H PRN PRN Reason: NAUSEA Last Admin: 01/10/17 14:20 Dose: 4 mg Pharmacy Profile Note (Coumadin Per Pharmacy*) 1 note FOLLOW UP .PER PHARMACY PROTOC [facility] PRN Reason: Protocol Vital Signs 01/15/17 01/15/17 01/15/17 15:44 20:00 20:20 Temperature 98.5 F 99.0 F Pulse Rate 82 87 Respiratory 16 18 18 Rate Blood Pressure 134/65 133/50 (mmHg) O2 Sat by Pulse 95 97 Oximetry 01/15/17 01/16/17 23:31 07:30 Temperature 98.8 F 98.2 F Pulse Rate 85 75 Respiratory 16 16 Rate Blood Pressure 100/52 141/57 (mmHg) O2 Sat by Pulse 95 95 Oximetry Oxygen Devices in Use Now: None Appearance: Well appearing female, OOB to chair, in NAD Eyes: PERRLA Ears/Nose/Mouth/Throat: Mucous Membranes Moist Neck: NL Appearance and Movements; NL JVP Respiratory: Symmetrical Chest Expansion and Respiratory Effort, Clear to Auscultation - diminished Cardiovascular: NL Sounds; No Murmurs; No JVD, RRR Abdominal: NL Sounds; No Tenderness; No Distention Extremities: No Edema Neurological: Alert and Oriented x 3 Lines/Tubes/Other Access: Clean, Dry and Intact PICC Line - midline Nutrition: Taking PO's Result Diagrams: 01/16/17 00:19 01/16/17 00:19 Additional Lab and Data: Microbiology and Other Data: Microbiology 01/04/17 20:45 Transfusion Reaction Culture - Preliminary Blood Bag Culture Under Incubation Transfusion Reaction Gram Stain - Final Assess/Plan/Problems-Billing Assessment: Ms. Jain is a 56 yo female with a PMH of dysfunctional uterine bleeding with recent initiation of Xarelto for bilateral PEs on 12/19/16 who was admitted on with symptomatic anemia. - Patient Problems (1) Pulmonary emboli Current Visit: Yes Status: Acute Code(s): I26.99 - OTHER PULMONARY EMBOLISM WITHOUT ACUTE COR PULMONALE SNOMED Code(s): 83066292 Comment: Per CTA, PE's have decreased in size. TTE 12/20/16 showing LVEF 55%, mildly reduced RV function INR therapeutic, continue warfarin Will need to be anticoagulated for life, as this is her second unprovoked PE. Outpatient INR on Wednesday, f/u with PCP. (2) Abnormal uterine bleeding Code(s): N93.9 - ABNORMAL UTERINE AND VAGINAL BLEEDING, UNSPECIFIED Comment: Still with some spotting, per the patient, HH stable and improving. Appreciate consultation from Dr. Van. TVUS showed a normal endometrial stripe with only a small fibroid. Progesterone started 01/04, decreased to once daily 01/09 with plan to discontinue on discharge. Placement of IUD 01/07, with Dr. Ibarra, some mild intermittent cramping. Continue warfarin, Xarelto is associated with higher bleeding risk in AUB. (3) Anemia Code(s): D64.9 - ANEMIA, UNSPECIFIED Comment: Acute blood loss anemia, secondary to AUB. Has had 7 units PRBC since admission - HH now stable 1st stool for occult blood was positive, but suspect this is false due to vaginal bleeding 2nd stool for occult blood was negative HH improving, f/u lab on Wednesday Outpatient f/u with PCP and harvesting supervisor (4) GERD (gastroesophageal reflux disease) Code(s): K21.9 - GASTRO-ESOPHAGEAL REFLUX DISEASE WITHOUT ESOPHAGITIS Comment : Stable Continue BID omeprazole Resume home ranitidine (5) HTN (hypertension) Code(s): I10 - ESSENTIAL (PRIMARY) HYPERTENSION Comment: Normotensive, previous orthostasis noted Discharge to home on reduced dose metoprolol. Discontinue furosemide at this time. Follow-up with PCP to discuss further titration of medications. (6) Morbid obesity Code(s): E66.01 - MORBID (SEVERE) OBESITY DUE TO EXCESS CALORIES Comment: BMI 61.0. Pt has appt with bariatric surgeon in [place]. (7) DVT prophylaxis Code(s): BPA5210 - Comment: Warfarin (8) Full code status Code(s): Z78.9 - OTHER SPECIFIED HEALTH STATUS Status and Disposition: Inpatient. D/c to home with f/u labs on Wednesday.
[2017-01-16] MEDS: Metoprolol Tartrate TAB* 25 MG PO SCH (10:07)
[2017-01-16] MEDS: Omeprazole CAP* 20 MG PO SCH (10:07)
[2017-01-16] MEDS: Ferrous Sulfate TAB* 325 MG PO SCH (10:07)
[2017-01-16] MEDS: MEDROXYPROGESTERONE 5 MG PO SCH (10:09)
[2017-01-16] MEDS: Nystatin TOP POWDER* 15 GM BTL TOPICAL SCH ×2 (14:41→16:41)
--- NOTE | 2017-01-18 03:05 | DS ---
MEDICINE DISCHARGE SUMMARY: DATE OF ADMISSION: 01/03/17 DATE OF DISCHARGE: 01/16/17 PROVIDER: Jatin Fajardo NP ATTENDING PHYSICIAN: Ngozi Lloyd MD * (as dictated by Jatin Fajardo NP) PRIMARY CARE PROVIDER: Serena Murillo MD CONSULTING PHYSICIAN: Alysa Van MD PRIMARY DISCHARGE DIAGNOSES: 1. Bilateral pulmonary embolism. 2. Symptomatic anemia. 3. Abnormal uterine bleeding. SECONDARY DISCHARGE DIAGNOSES: 1. Pulmonary embolism, first diagnosed on 12/19/16. 2. Abnormal uterine bleeding since age 40. 3. Obstructive sleep apnea, not on home CPAP. 4. Morbid obesity. 5. Gastroesophageal reflux disease. 6. Hypertension. 7. Left bundle-branch block. 8. History of hernia repair. 9. Cholecystectomy. 10. Tonsillectomy. 11. History of at age 24. HOME MEDICATIONS AT DISCHARGE: 1. Acetaminophen 1000 mg t.i.d. 2. Ferrous gluconate 240 mg daily. 3. Ranitidine 300 mg at bedtime. 4. Nystatin 1 application topical b.i.d. 5. Warfarin 6 mg daily. 6. Metoprolol tartrate 12.5 mg q.12 hours. 7. Albuterol inhaler 2 puffs inhaled q.4 hours p.r.n. HOSPITAL TESTING DURING THIS ADMISSION: CTA of the chest and thorax, impression: 1. Noted are multiple bilateral pulmonary emboli. The clot burden is similar to slightly decreased compared to 12/19/16. 2. There is enlargement of the main pulmonary artery, suggestive of pulmonary arterial hypertension. 3. A 0.5-cm nodule of the right lower lobe. 4. Splenomegaly. 5. Fatty infiltration of the liver. 6. Again noted is left thyroid nodule. Recommend correlation with dedicated imaging of the thyroid in the nonacute setting. 7. The recommendations for followup and management of an incidentally detected pulmonary nodule greater than 4 mm, but less than or equal to 6 mm in size, in a patient without history of malignancy, include followup CT in 12 months for a low risk patient or followup CT in 12 months, then again at 18 to 24 months for a high risk patient. Transvaginal ultrasound, impression: Fibroid in the anterior body of the uterus. Endometrial echo measures 5 mm. The ovaries are not well demonstrated. HOSPITAL COURSE OF STAY: For full details, please refer to the full medical record and the H and P provided by nurse practitioner, Whit Ordoñez, on 01/03/17. In summary, Ms. Jain is a 56-year-old female presented to the ER on with concerns for lightheadedness and shortness of breath. The patient was initially admitted and diagnosed with pulmonary embolism on 12/19/16. She was discharged the following day on Xarelto. Since that time, she describes having heavy menstrual bleeding, which was not new, but had been increasing in amount and frequency. She notes with her menses that she was having large blood clots. She was seen at [facility] and was started on hormone therapy. There was a plan to have an IUD placed and a transvaginal ultrasound on 01/26/17 ; however, the patient continued to have heavy menstrual bleeding. In the emergency room, the patient was noted to have a hemoglobin of 7.2. She was admitted for symptomatic anemia secondary to abnormal uterine bleeding. The patient was switched from Xarelto to heparin drip. During that time here, she did receive blood transfusions. She was seen in consultation by Dr. Van, who recommended switching the patient's anticoagulant, as Xarelto is more often associated with abnormal uterine bleeding. The patient was started on oral progesterone therapy for immediate management and then had the Mirena inserted while she was here in the hospital. The patient was switched to warfarin and maintained on the heparin drip in order to get her INR therapeutic. The patient was offered the option of being discharged to home on warfarin with a Lovenox bridge, but the patient refused, stating that she could not perform self injections and was not willing to have injections done at home. The need for anticoagulation as a lifelong treatment was explained to the patient, as this was her second unprovoked PE. The patient did have a TTE on 12/20/16 prior to her discharge on the previous admission and that TTE showed that she has mildly reduced RV function and mild pulmonary hypertension as well as an LVEF of 55%. The patient did stay up until 01/16/17 when her INR was therapeutic. She was continued on progesterone therapy, which was stopped at discharge under the direction of [facility]. The patient is to follow up with Dr. Van and states that she will call to get an appointment within the next week. In regards to her INR, which at the time of discharge was 2.21, the patient was given a script to have an INR drawn at home on Wednesday. She is to have visiting nursing services come out to see her and it should be establishing with the patient on Wednesday; she should have her INR checked as soon as possible as well as a CBC, which is also to be drawn by the visiting nursing services. The patient states that she otherwise cannot get her labs drawn until because she uses [facility]. Case management was made aware and states that they can get visiting nurse services to see the patient for her blood draw early next week as previously discussed. Results are to be sent to her PCP. The patient was also advised to monitor for any further uterine bleeding and if she has any symptoms of concern, which include chest pain, shortness of breath, lightheadedness, dizziness, or heavy bleeding requiring frequent pad changes that she should be evaluated sooner. The patient verbalizes understanding of this. CONCERNS AT DISCHARGE: Ms. 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 DIET: Heart healthy, consistent carbohydrate diet. ACTIVITY: As tolerated. CONDITION: Stable. DISPOSITION: To home. TIME SPENT: Time spent on this discharge was approximately 55 minutes. Again, this is only a brief summary of the patient's hospital course of stay. For full details, please refer to the full medical record. If you have any further questions, please feel free to contact me at . JATIN FAJARDO NP CC: Serena Murillo MD; Alysa Van MD * [id number]/[facility] #: [id number] [facility]
== END 2017-01-16 14:05 | disposition home or self-care (01) | DRG 532 ==
LOC: ED 15:48 → MED 18:02 → MEDTELE 19:49 → OBSVTOIN 01-05 10:00 → MED 01-07 14:29
PROVIDERS: ADMIT Internal Medicine; ATTEND Internal Medicine
PROC: 30233N1 Transfusion of Nonautologous Red Blood Cells into Peripheral Vein, Percutaneous Approach (ICD-10-PCS; 2017-01-03)
PROC: 0UH97HZ Insertion of Contraceptive Device into Uterus, Via Natural or Artificial Opening (ICD-10-PCS; principal; 2017-01-07)
DX: N93.9 Abnormal uterine and vaginal bleeding, unspecified (principal); I26.99 Other pulmonary embolism without acute cor pulmonale; Z68.44 Body mass index [BMI] 60.0-69.9, adult; D62 Acute posthemorrhagic anemia; E66.01 Morbid (severe) obesity due to excess calories; I27.2 Other secondary pulmonary hypertension; R91.1 Solitary pulmonary nodule; I10 Essential (primary) hypertension; I08.1 Rheumatic disorders of both mitral and tricuspid valves; I44.7 Left bundle-branch block, unspecified; J45.909 Unspecified asthma, uncomplicated; G47.33 Obstructive sleep apnea (adult) (pediatric); K21.9 Gastro-esophageal reflux disease without esophagitis; G89.29 Other chronic pain; M25.569 Pain in unspecified knee; D25.9 Leiomyoma of uterus, unspecified; E04.1 Nontoxic single thyroid nodule; K76.0 Fatty (change of) liver, not elsewhere classified; Z82.49 Family history of ischemic heart disease and other diseases of the circulatory system; Z87.891 Personal history of nicotine dependence; Z91.048 Other nonmedicinal substance allergy status; Z79.01 Long term (current) use of anticoagulants
CPT/HCPCS: 36415; 71275; 76830; 80048; 80053; 81003; 81015; 82270; 82565; 82607; 82728; 82746; 83540; 83550; 83605; 83735; 84484; 84520; 85014; 85018; 85025; 85610; 85730; 86078; 86850; 86900; 86901; 86922; 93005; 94760; A9270-GY; G0378; J2405; J3480; J7300; P9040; Q9967

== ENCOUNTER 2017-01-20 18:44 | Emergency (ER) | payer OTHER ==
--- NOTE | 2017-01-20 19:35 | RAD ---
INDICATION: Left ankle pain. TECHNIQUE: 3 views of the left ankle were obtained. FINDINGS: There is diffuse soft tissue swelling. The bones are in normal alignment. No fracture is seen. Joint spaces appear maintained. There are small calcaneal spurs. IMPRESSION: DIFFUSE SOFT TISSUE SWELLING, NO FRACTURE IS SEEN.
[2017-01-20] MEDS ORDERED: Cephalexin CAP* 500 MG PO ONE ×2 (19:43→19:48)
--- NOTE | 2017-01-20 19:51 | ED ---
Lower Extremity - HPI Summary HPI Summary: 56F presents with right top of foot pain. She states that pain started this weekend has noticed some redness and swelling. denies any injury. has history of PE. denies any fever. has full ROM of ankle and able to ambulate. has been taking Tylenol for pain. 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; tricuspid gisele disease, Other Cardiovascular Problems/Disorders - left BBB, chronic edema Denies: Hx Congestive Heart Failure Respiratory History: Reports: Hx Asthma, Hx Pulmonary Embolism, Hx Sleep Apnea, Other Respiratory Problems/Disorders - PE hx 2005 [facility] GI History: Reports: Hx Gall Bladder Disease - removed, Hx Gastroesophageal Reflux Disease, Other GI Disorders - stomach stapled History: Denies: Hx Renal Disease Musculoskeletal History: Reports: Hx Back Problems, Other Musculoskeletal History - chronic knee pain Sensory History: Reports: Hx Contacts or Glasses Denies: Hx Hearing Aid Opthamlomology History: Reports: Hx Contacts or Glasses Neurological History: Denies: Other Neuro Impairments/Disorders - Surgical History Surgery Procedure, Year, and Place: CARDIAC CATH, TONSILECTOMY, , RIGHT ABD HERNIA REPAIR X3, STOMACH STAPLING, CHOLECYSTECTOMY - Immunization History Date of Tetanus Vaccine: Unk Date of Influenza Vaccine: None Infectious Disease History: No Infectious Disease History: Denies: Traveled Outside the [place] in Last 30 Days - Family History Known Family History: Positive: Cardiac Disease - father with [place] and in 80's, Hypertension - father - Social History Alcohol Use: Rare Substance Use Type: Reports: None Hx Tobacco Use: No Smoking Status (MU): Former Smoker Type: Cigarettes Have You Smoked in the Last Year: No Review of Systems Negative: Fever Negative: Chest Pain Negative: Shortness Of Breath Positive: Edema - top of right foot Positive: Rash - top of right foot All Other Systems Reviewed And Are Negative: Yes Physical Exam Triage Information Reviewed: Yes Vital Signs On Initial Exam: Initial Vitals Temp Pulse Resp BP Pulse Ox 98.9 F 81 18 134/73 96 01/20/17 18:45 01/20/17 18:45 01/20/17 18:45 01/20/17 18:45 01/20/17 18:45 Vital Signs Reviewed: Yes Appearance: Positive: Well-Appearing Skin: Positive: Warm, Dry, Other - area of erythema and edema to top of right foot that is warm to touch Head/Face: Positive: Normal Head/Face Inspection Eyes: Positive: Normal, Conjunctiva Clear Respiratory/Lung Sounds: Positive: Clear to Auscultation, Breath Sounds Present Cardiovascular: Positive: Normal, RRR Musculoskeletal: Positive: Strength/ROM Intact - of right ankle, Other - nontender over malleolous, good pulses, capillary refill < 2 secs, no step off, Diagnostics - Vital Signs Vital Signs Temp Pulse Resp BP Pulse Ox 01/20/17 19:45 115/54 01/20/17 19:40 75 95 01/20/17 18:47 98.9 F 75 16 134/73 96 01/20/17 18:45 98.9 F 81 18 134/73 96 - Laboratory Lab Statement: Any lab studies that have been ordered have been reviewed, and results considered in the medical decision making process. - Radiology ankle Xray Interpretation: No Acute Changes - IMPRESSION: DIFFUSE SOFT TISSUE SWELLING , NO FRACTURE IS SEEN. Radiology Interpretation Completed By: Radiologist Lower Extremity Course/Dx - Course Course Of Treatment: 56F presents with right foot pain for two days. started to notice area of erythema to top of foot. denies any fever. no trauma. on exam tender over area of erythema on top of foot that is warm to touch, xray no fracture but is soft tissue swelling and full ROM of ankle. will treat as cellulitis with keflex and can take with warfarin. patient understands and agrees with plan - Diagnoses Differential Diagnosis/HQI/PQRI: Positive: Cellulitis, DVT, Fracture (Closed) Provider Diagnoses: Cellulitis of left foot Discharge - Discharge Plan Condition: Fair Disposition: HOME Prescriptions: Cephalexin CAP* [Keflex CAP*] 500 mg PO QID #38 cap Patient Education Materials: Cellulitis (ED) Referrals: Alan Collado MD [Primary Care Provider] - Additional Instructions: Take Keflex 4 times a day for 10 days, first dose given in ED Take Tylenol for pain every [address] ice on area Follow up with primary within 5 days Return to ED if develop fever, area of redness spreads, or any new or worsening symptoms
[2017-01-20 20:21] VITALS: BP 126/57
== END 2017-01-20 20:22 | disposition home or self-care (01) ==
LOC: ED 18:44
DX: L03.115 Cellulitis of right lower limb (principal); M79.671 Pain in right foot; Z87.891 Personal history of nicotine dependence
CPT/HCPCS: A9270-GY

== ENCOUNTER 2017-03-09 08:51 | Inpatient (IN) | payer OTHER ==
[2017-03-09] MEDS ORDERED: Aspirin Low Dose CHEW TAB* 81 MG PO ONE (09:03)
--- NOTE | 2017-03-09 09:22 | RAD ---
Indication: Chest pain, CHF. Single frontal view of the chest performed at 0910 hours was reviewed. Comparison is made with previous exam dated December 23, 2016. No mediastinal shift is noted. Cardiomegaly is noted. Lung storm are clear. IMPRESSION: NO ACTIVE CARDIOPULMONARY DISEASE IS NOTED.
[2017-03-09 10:10] LABS: Hematocrit 35 % (35-47); Hemoglobin 11.1 g/dl (12.0-16.0); Mean Corpuscular HGB Conc 31 g/dl (31-36); Mean Corpuscular Hemoglobin 24 pg (27-31); Mean Corpuscular Volume 75 fL (80-97); Mean Platelet Volume 10 um3 (7.4-10.4); Red Blood Count 4.71 10^6/ul (4.0-5.4); Red Cell Distribution Width 21 % (10.5-15); White Blood Count 6.8 10^3/ul (3.5-10.8)
[2017-03-09 10:25] LABS: Albumin 3.7 g/dL (3.2-5.2); BUN/Creatinine Ratio 21.4 (8-20); Calcium 9.3 mg/dL (8.6-10.3); EGFR African American 143.5 (>60); EGFR Non-African American 111.6 (>60); Globulin 2.9 g/dL (2-4); Magnesium 1.8 mg/dL (1.9-2.7); Potassium 4.2 mmol/L (3.5-5.0); Total Bilirubin 0.5 mg/dL (0.2-1.0); Total Protein 6.6 g/dL (6.4-8.9)
[2017-03-09 10:27] LABS: Troponin I 0.01 ng/mL (<0.04)
[2017-03-09] MEDS ORDERED: Albuterol 2.5 MG/3 ML NEB.SOL* (0.083%) INH PRN (12:45)
[2017-03-09] MEDS ORDERED: Ondansetron INJ* 2 MG/ML VIAL IV PRN (12:45)
[2017-03-09] MEDS ORDERED: Albuterol HFA INHALER* 8 gm MDI INH PRN (12:48)
[2017-03-09] MEDS ORDERED: Magnesium Sulfate 2 GM IV* 2 GM/50 ML BAG IVPB ONE (12:56)
[2017-03-09] MEDS ORDERED: Iohexol 350* (CONTRAST) 500 ML MDV IV ONE (13:39)
[2017-03-09] MEDS: Enoxaparin(*) 150 MG/ML 1 ML SYRINGE SUBCUT SCH (14:01)
--- NOTE | 2017-03-09 14:01 | RAD ---
Indication: Chest pain, history of pulmonary embolus. Contrast: Administered 99.1 ml of OMNIPAQUE 350 mg/ml. CTA of the chest was performed after IV contrast demonstration. Coronal and sagittal reconstructed images were obtained. The study is extremely limited due to body habitus. The main pulmonary arteries are suboptimally opacified. No definite pulmonary emboli is noted. However smaller branch vessels including the lobar branches and segmental branches cannot be evaluated. Dependent changes are noted. There is cardiomegaly without pericardial effusion. Low density lesion is noted in the inferior tip of the left lobe of liver. IMPRESSION: Extremely limited CTA of the chest due to body habitus. No main pulmonary artery embolism is noted. Dependent changes are noted.
[2017-03-09] MEDS: Nystatin TOP POWDER* 15 GM BTL TOPICAL SCH ×2 (14:46→20:54)
[2017-03-09] MEDS ORDERED: Warfarin TAB(*) 1 MG PO SCH (17:00)
[2017-03-09] MEDS: Warfarin TAB(*) 6 MG PO SCH (18:02)
--- NOTE | 2017-03-09 18:06 | HP ---
CC: Dr. Murillo* HISTORY AND PHYSICAL: DATE OF ADMISSION: 03/09/17 PRIMARY CARE PROVIDER: Dr. Murillo. ATTENDING PHYSICIAN: Dr. Shante Pan *(this report is being dictated by Seamus Aden NP). CHIEF COMPLAINT: 1. Shortness of breath. 2. Chest pain. HISTORY OF PRESENT ILLNESS: Ms. Jain is a 57-year-old female patient, who has a history of PE, history of uterine bleeding, LUIS ANTONIO, obesity, GERD, hypertension, left bundle-branch block, and asthma. She comes into the ER today after she was referred there from the sleep clinic. She had an appointment with the sleep clinic today to evaluate her sleep apnea and it was noted there by the staff that she was short of breath even taking 2 to 3 words, she was feeling short of breath just with talking and this came on suddenly because the last couple of days she said she had not been feeling this and she was not having any chest pain. It was noted that she also was having some chest pain on the right side, worse with taking a deep breath. She described the pain as a sharp stabbing pain in nature and that she has not had the pain recently and she denied having any pain with exertion recently. She says she can usually walk around her place of living fairly easily when she does not get chest pain. She does get short of breath with this. She said she has been taking her Coumadin as prescribed. She does carry the history of PEs in the past x2, and there was just concern though because of her symptoms and she was sent to the ER, was evaluated. She feels that the symptoms she is having now feel different than her previous PEs, and she said she has been taking her Coumadin very religiously, unfortunately though it is noted that her INR was subtherapeutic. Because of the chest pain and the fact that she does have risk factors for acute coronary syndrome and possible PE, hospitalist service was asked to evaluate for admission. PAST MEDICAL HISTORY: Significant for: 1. PE. 2. Uterine bleeding. 3. LUIS ANTONIO. 4. Obesity. 5. GERD. 6. Hypertension. 7. Left bundle-branch block. 8. Asthma. PAST SURGICAL HISTORY: 1. The patient has had a hernia repair x3. 2. Cholecystectomy. 3. Tonsillectomy. 4. . 5. She said she has had stomach stapling. MEDICATIONS: Her home meds according to the list that was provided include: 1. Warfarin 6 mg daily. 2. Ranitidine 300 mg p.o. at bedtime. 3. Nystatin 1 application topically b.i.d. 4. Lopressor 12.5 mg p.o. every 12 hours as needed. 5. Ferrous gluconate 240 mg p.o. daily. 6. Ventolin 2 puff inhaler every 4 hours as needed. 7. Tylenol 650 mg p.o. every 4 hours. ALLERGIES: Allergies to medications are none, but she is allergic to BUCKWHEAT and DUST. FAMILY HISTORY: Mother had a history of hypertension and [place]. SOCIAL HISTORY: The patient does not smoke. She does not drink. The surrogate decision maker is her sister Nya. REVIEW OF SYSTEMS: There was no documented fevers. She denied having any significant weight change. There was no double vision. She denies having any ear discharge. There is no rhinorrhea. There was chest pain per my HPI. There was no abdominal pain. There was dyspnea on exertion. There was no lightheadedness. No loss of consciousness. No pruritus. No skin ulcerations. Review of 14 systems completed, all others negative. PHYSICAL EXAMINATION GENERAL: At this time, Ms. Jain is a 57-year-old female patient. She is morbidly obese. She is sitting in the hospital bed, does not appear to be in acute distress. VITAL SIGNS: Blood pressure 151/63 with a pulse of 78, respirations 18, O2 sat 93%, temperature 98.2. HEENT: Head atraumatic. Eyes: Sclerae was anicteric. Throat: Oral mucosa appears to be moist. No oropharyngeal erythema. NECK: Supple. LUNGS: Clear to auscultation. No wheezes, rales, or rhonchi. HEART: Sounds S1, S2. Regular rate and rhythm. No murmurs, rubs, or gallops. ABDOMEN: Soft. It was flat. Nontender. Bowel sounds present. EXTREMITIES: Pulses 2+ throughout. She is able to move all 4 extremities with 5/5 strength. NEUROLOGIC: The patient is awake. She is alert. She is oriented x3. Stem Teacher are equal. Tongue midline. No gross focal deficits. SKIN: Grossly intact. LABORATORY DATA: The labs today revealed WBC of 6.8, RBC of 4.71, hemoglobin 11.1, hematocrit 35, platelet count of 237. The INR was 1.32. Her sodium was 137, potassium 4.2, chloride of 104, bicarb of 28, BUN 12, creatinine of 0.56, glucose 105, lactic 0.9, calcium 9.3. Her mag was 1.8. Total bilirubin 0.5, AST 15, ALT 11. Her alk phos was 41. Troponin 0.01. BNP of 34, albumin 3.7. There was a chest x-ray obtained today as well, which revealed no active cardiopulmonary disease. She had an EKG obtained today, which showed a normal sinus rhythm, rate of 70. She had no ST elevations or T-wave inversions were noted. Old medical records were reviewed. ASSESSMENT AND PLAN: Ms. Jain is a 57-year-old female patient coming into the ER today with complaints of chest discomfort. There was concern this may represent acute coronary syndrome. We were asked to evaluate for admission. She will be admitted under observation status for: 1. Chest pain. At this point, the pain is reproducible on my exam. It is sharp in nature. It is worse with a deep breath. Her chief complaint initially was that she had shortness of breath that came on suddenly while going to an appointment in the sleep clinic. My concern is that her INR here is subtherapeutic, maybe she had progression of her PEs. I would like to get a CTA of the chest as her pain does sound very pulmonary. I would also give her a dose of Lovenox now and b.i.d. until her INR is greater than 2. My plan is though if the CTA is negative, I will get a stress test to be thorough to make sure this is not cardiac, this is less likely. I will cycle her troponin. She is on telemetry and we will continue to follow. 2. History of uterine bleeding. She said this has not been an active issue since her last day here in December. An IUD was placed then in the form of Mirena and now she has not had any more episodes. 3. History of obstructive sleep apnea. Continue followup with the sleep clinic. 4. Obesity. Continue with diet control. 5. Gastroesophageal reflux disease. Continue her medications prescribed. 6. Hypertension. Continue Lopressor. 7. History of left bundle-branch block. She appears to be in sinus rhythm currently and it is normal. This has been consistent with her previous EKGs. 8. Asthma. I have ordered p.r.n. nebs. 9. Code status is full code. 10. Fluids, electrolytes, and nutrition: She can have a heart healthy diet. TIME SPENT: Time spent on the admission was approximately 60 minutes, greater than half the time spent [id number] with the patient obtaining my history and physical, other half the time spent going over the plan of care with the patient and implementing the plan of care. I did discuss the plan of care with my attending, Dr. Pan; she is in agreement. SEAMUS ADEN, NASRA [id number]/CPS #: [id number] DIVINA
--- NOTE | 2017-03-09 18:08 | ED ---
Brian Parra Claudia, scribed for Marko Petty MD on 03/09/17 at 0946 . HPI Chest Pain - HPI Summary HPI Summary: 57 year old female presents to the ED with CP. She states sudden onset a few minutes ago when she was in her [facility]. Pt states she was at rest when the pain began. She describes the pain as a pressure/ tightness. She denies any radiating pain, abd pain. Pt does also note some mild SOB but thought it was just her asthma. Pt notes PMHX of PE 2x in the past, pt is currently on Coumadin. She states that her currently CP is different from the pain that she had when she had a PE. Pt received a stress test in 2013 and has an appt with her mason liner for a fill work-up in 1 month. Pt denies any nasal discharge, abd pain, sore throat, new leg pain. PMHx of GERD and HTN is also noted. - History of Current Complaint Chief Complaint: EDChestPainROMI Time Seen by Provider: 03/09/17 09:21 Hx Obtained From: Patient Onset/Duration: Started Minutes Ago, Still Present Pain Intensity: 3 Pain Scale Used: 0-10 Numeric Chest Pain Location: Diffuse Chest Pain Radiates: No Character: Pressure/Squeezing, Tightness Aggravating Factor(s): Nothing Alleviating Factor(s): Nothing Associated Signs and Symptoms: Positive: Chest Pain, Shortness of Breath. 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; tricuspid gisele disease, Other Cardiovascular Problems/Disorders - left BBB, chronic edema Denies: Hx Congestive Heart Failure Respiratory History: Reports: Hx Asthma, Hx Pulmonary Embolism, Hx Sleep Apnea, Other Respiratory Problems/Disorders - PE hx 2005 [facility] GI History: Reports: Hx Gall Bladder Disease - removed, Hx Gastroesophageal Reflux Disease, Other GI Disorders - stomach stapled History: Denies: Hx Renal Disease Musculoskeletal History: Reports: Hx Back Problems, Other Musculoskeletal History - chronic knee pain Sensory History: Reports: Hx Contacts or Glasses Denies: Hx Hearing Aid Opthamlomology History: Reports: Hx Contacts or Glasses Neurological History: Denies: Other Neuro Impairments/Disorders - Surgical History Surgery Procedure, Year, and Place: CARDIAC CATH, TONSILECTOMY, , RIGHT ABD HERNIA REPAIR X3, STOMACH STAPLING, CHOLECYSTECTOMY - Immunization History Date of Tetanus Vaccine: Unk Date of Influenza Vaccine: None Infectious Disease History: No Infectious Disease History: Denies: Traveled Outside the [place] in Last 30 Days - Family History Known Family History: Positive: Cardiac Disease - father with [place] and in 80's, Hypertension - father - Social History Alcohol Use: Rare Substance Use Type: Reports: None Hx Tobacco Use: No Smoking Status (MU): Former Smoker Type: Cigarettes Have You Smoked in the Last Year: No Review of Systems Constitutional: Negative Positive: Fever Eyes: Negative ENT: Negative Negative: Sore Throat, Nasal Discharge Positive: Chest Pain Positive: Shortness Of Breath Gastrointestinal: Negative Negative: Abdominal Pain Genitourinary: Negative Musculoskeletal: Negative Skin: Negative Neurological: Negative Psychological: Normal All Other Systems Reviewed And Are Negative: Yes Physical Exam - Summary Physical Exam Summary: The patient is well-nourished in no acute distress and in no acute pain. The skin is warm and dry and skin color reflects adequate perfusion. HEENT: The head is normocephalic and atraumatic. The pupils are equal and reactive. The conjunctivae are clear and without drainage. Nares are patent and without drainage. Mouth reveals moist mucous membranes and the throat is without erythema and exudate. The external ears are intact. The ear canals are patent and without drainage. The tympanic membranes are intact. Neck is supple with full range of motion and non-tender. There are no carotid bruits. There is no neck vein distension. Respiratory: Chest is non-tender. Lungs are clear to auscultation and breath sounds are symmetrical and equal. Cardiovascular: Hear is regular rate and rhythm. There is no murmur or rub auscultated. There is no peripheral edema and pulses are symmetrical and equal. Capillary refill 2 seconds. Some reproducible right sided CP. Abdomen: The abdomen is soft and non-tender. There are normal bowel sounds heard in all four quadrants and there is no organomegaly palpated. Musculoskeletal: There is no back pain noted. Extremities are non-tender with full range of motion. There is good capillary refill. There is no peripheral edema or calf tenderness elicited. Neurological: Patient is alert and oriented to person, place and time. The patient has symmetrical motor strength in all four extremities. Cranial nerves are grossly intact. Deep tendon reflexes are symmetrical and equal in all four extremities. Psychiatric: The patient has an appropriate affect and does not exhibit any anxiety or depression. Triage Information Reviewed: Yes Vital Signs On Initial Exam: Initial Vitals Temp Pulse Resp BP Pulse Ox 97.7 F 70 20 142/66 95 03/09/17 08:52 03/09/17 08:52 03/09/17 08:52 03/09/17 08:52 03/09/17 08:52 Vital Signs Reviewed: Yes Diagnostics - Vital Signs Vital Signs Temp Pulse Resp BP Pulse Ox 03/09/17 08:55 97.7 F 76 20 142/66 95 03/09/17 08:52 97.7 F 70 20 142/66 95 - Laboratory Lab Results: Lab Results 03/09/17 03/09/17 03/09/17 Range/Units 09:58 09:58 09:58 WBC 6.8 (3.5-10.8) 10^3/ul RBC 4.71 (4.0-5.4) 10^6/ul Hgb 11.1 L (12.0-16.0) g/dl Hct 35 (35-47) % MCV 75 L (80-97) fL MCH 24 L (27-31) pg MCHC 31 (31-36) g/dl RDW 21 H (10.5-15) % Plt Count 237 (150-450) 10^3/ul MPV 10 (7.4-10.4) um3 Neut % (Auto) 70.1 (38-83) % Lymph % (Auto) 17.5 L (25-47) % Terry % (Auto) 7.6 (1-9) % Eos % (Auto) 3.6 (0-6) % Baso % (Auto) 1.2 (0-2) % Absolute Neuts (auto) 4.8 (1.5-7.7) 10^3/ul Absolute Lymphs (auto) 1.2 (1.0-4.8) 10^3/ul Absolute Monos (auto) 0.5 (0-0.8) 10^3/ul Absolute Eos (auto) 0.2 (0-0.6) 10^3/ul Absolute Basos (auto) 0.1 (0-0.2) 10^3/ul Absolute Nucleated RBC 0 10^3/ul Nucleated RBC % 0.1 INR (Anticoag Therapy) (0.89-1.11) Sodium 137 (133-145) mmol/L Potassium 4.2 (3.5-5.0) mmol/L Chloride 104 (101-111) mmol/L Carbon Dioxide 28 (22-32) mmol/L Anion Gap 5 (2-11) mmol/L BUN 12 (6-24) mg/dL Creatinine 0.56 (0.51-0.95) mg/dL Est GFR ( Amer) 143.5 (>60) Est GFR (Non-Af Amer) 111.6 (>60) BUN/Creatinine Ratio 21.4 H (8-20) Glucose 105 H (70-100) mg/dL Lactic Acid 0.9 (0.5-2.0) mmol/L Calcium 9.3 (8.6-10.3) mg/dL Magnesium 1.8 L (1.9-2.7) mg/dL Total Bilirubin 0.50 (0.2-1.0) mg/dL AST 15 (13-39) U/L ALT 11 (7-52) U/L Alkaline Phosphatase 41 (34-104) U/L Troponin I 0.01 (<0.04) ng/mL B-Natriuretic Peptide ( - 100) pg/mL Total Protein 6.6 (6.4-8.9) g/dL Albumin 3.7 (3.2-5.2) g/dL Globulin 2.9 (2-4) g/dL Albumin/Globulin Ratio 1.3 (1-3) 03/09/17 03/09/17 Range/Units 09:58 09:58 WBC (3.5-10.8) 10^3/ul RBC (4.0-5.4) 10^6/ul Hgb (12.0-16.0) g/dl Hct (35-47) % MCV (80-97) fL MCH (27-31) pg MCHC (31-36) g/dl RDW (10.5-15) % Plt Count (150-450) 10^3/ul MPV (7.4-10.4) um3 Neut % (Auto) (38-83) % Lymph % (Auto) (25-47) % Terry % (Auto) (1-9) % Eos % (Auto) (0-6) % Baso % (Auto) (0-2) % Absolute Neuts (auto) (1.5-7.7) 10^3/ul Absolute Lymphs (auto) (1.0-4.8) 10^3/ul Absolute Monos (auto) (0-0.8) 10^3/ul Absolute Eos (auto) (0-0.6) 10^3/ul Absolute Basos (auto) (0-0.2) 10^3/ul Absolute Nucleated RBC 10^3/ul Nucleated RBC % INR (Anticoag Therapy) 1.32 H (0.89-1.11) Sodium (133-145) mmol/L Potassium (3.5-5.0) mmol/L Chloride (101-111) mmol/L Carbon Dioxide (22-32) mmol/L Anion Gap (2-11) mmol/L BUN (6-24) mg/dL Creatinine (0.51-0.95) mg/dL Est GFR ( Amer) (>60) Est GFR (Non-Af Amer) (>60) BUN/Creatinine Ratio (8-20) Glucose (70-100) mg/dL Lactic Acid (0.5-2.0) mmol/L Calcium (8.6-10.3) mg/dL Magnesium (1.9-2.7) mg/dL Total Bilirubin (0.2-1.0) mg/dL AST (13-39) U/L ALT (7-52) U/L Alkaline Phosphatase (34-104) U/L Troponin I (<0.04) ng/mL B-Natriuretic Peptide 34 ( - 100) pg/mL Total Protein (6.4-8.9) g/dL Albumin (3.2-5.2) g/dL Globulin (2-4) g/dL Albumin/Globulin Ratio (1-3) Result Diagrams: 03/09/17 09:58 03/09/17 09:58 Lab Statement: Any lab studies that have been ordered have been reviewed, and results considered in the medical decision making process. - Radiology CXR Xray Interpretation: No Acute Changes Radiology Interpretation Completed By: Radiologist - EKG 9:01 Cardiac Rate: NL EKG Rhythm: Sinus Rhythm - 70 BEATS/MIN EKG Interpretation: POOR R WAVE PROGRESSION, NO ST ELEVATION, NO LBBB, NO STEMI Re-Evaluation - Re-Evaluation 1 Re-Evaluation Time: 11:20 Comment: Discussed lab work and imaging with the pt. Chest Pain Course/Dx - Course Assessment/Plan: MDM: 57 year old female presnets to the ED with CP. Pt states PMHX of PE but notes this pain is different. After troponin of .01 and EKG and CXR the pain is imporved but is still present. After discussion with Dr. Emery the pt will be admitted to [facility] to rule out [place]. - Chest Pain Differential Diagnosis/HQI/PQRI: Acute [place], Pulmonary Edema, Pulmonary Embolism - Diagnoses Provider Diagnoses: Chest pain, chest pain - Provider Notifications Discussed Care Of Patient With: Discussed care of pt with Dr. Emery whom will admit to [facility]. Time Discussed With Above Provider: 11:34 Instructed by Provider To: Admit As Observation Discharge - Discharge Plan Condition: Stable Disposition: ADMITTED TO [facility] The documentation as recorded by the Brian steve Claudia accurately reflects the service I personally performed and the decisions made by , Marko Petty MD.
[2017-03-09] MEDS: Metoprolol Tartrate TAB* 25 MG PO SCH (20:53)
[2017-03-09] MEDS: Famotidine TAB* 20 MG PO SCH (20:54)
[2017-03-09] MEDS: Acetaminophen TAB* 325 MG PO PRN (20:57)
[2017-03-10] MEDS: Enoxaparin(*) 150 MG/ML 1 ML SYRINGE SUBCUT SCH ×2 (00:36→12:58)
[2017-03-10 06:14] LABS: Hematocrit 34 % (35-47); Hemoglobin 10.5 g/dl (12.0-16.0); Mean Corpuscular HGB Conc 31 g/dl (31-36); Mean Corpuscular Hemoglobin 23 pg (27-31); Mean Corpuscular Volume 76 fL (80-97); Mean Platelet Volume 9 um3 (7.4-10.4); Red Blood Count 4.49 10^6/ul (4.0-5.4); Red Cell Distribution Width 21 % (10.5-15); White Blood Count 5.1 10^3/ul (3.5-10.8)
[2017-03-10 06:33] LABS: BUN/Creatinine Ratio 20.3 (8-20); Calcium 8.8 mg/dL (8.6-10.3); EGFR African American 135.1 (>60); EGFR Non-African American 105.1 (>60); HDL Cholesterol 18.1 mg/dL; Potassium 3.8 mmol/L (3.5-5.0)
[2017-03-10] MEDS: Aspirin EC Low Dose* 81 MG TAB.EC PO SCH (08:32)
[2017-03-10] MEDS: Nystatin TOP POWDER* 15 GM BTL TOPICAL SCH ×2 (08:33→19:42)
[2017-03-10] MEDS ORDERED: Aminophylline IV* 25 MG/ML 10 ML VIAL ONE (08:59)
[2017-03-10] MEDS ORDERED: Regadenoson* 0.4 MG/5 ML SYRINGE ONE (08:59)
[2017-03-10] MEDS: FERROUS GLUCONATE 240 MG PO SCH (09:00)
[2017-03-10] MEDS: Metoprolol Tartrate TAB* 25 MG PO SCH ×2 (09:01→19:41)
--- NOTE | 2017-03-10 13:55 | PN ---
Subjective Date of Service: 03/10/17 Interval History: This is a 57 yo female with h/o PE, SOA, morbid obesity, GERD, HTN and asthma who was send from the sleep lab yesterday with c/o CP and SOB. CTA was limited to her size but did not demonstrate any large PEs. She underwent the fist portion of her stress test today. She states that her CP and SOB have resolved at this time. She woke up asymptomatic. She denies associated abd pain, n/v or diaphoresis. Objective Active Medications: Acetaminophen (Tylenol Tab*) 650 mg PO Q4H PRN PRN Reason: FEVER/PAIN Last Admin: 03/09/17 20:57 Dose: 650 mg Albuterol (Ventolin 2.5 Mg/3 Ml Neb.Tiffanie*) 2.5 mg INH Q2H PRN PRN Reason: SOB/WHEEZING Albuterol (Ventolin Hfa Inhaler*) 2 puff INH Q4H PRN PRN Reason: SOB/WHEEZING Aspirin (Aspirin Ec Low Dose*) 81 mg PO DAILY [facility] Last Admin: 03/10/17 08:32 Dose: 81 mg Enoxaparin Sodium (Lovenox(*)) 150 mg SUBCUT Q12H [facility] Last Admin: 03/10/17 12:58 Dose: 150 mg Famotidine (Pepcid Tab*) 40 mg PO BEDTIME [facility] PRN Reason: Protocol Last Admin: 03/09/17 20:54 Dose: 40 mg Metoprolol Tartrate (Lopressor Tab*) 12.5 mg PO Q12HR [facility] Last Admin: 03/10/17 09:01 Dose: Not Given Nf: Ferrous Gluconate [Ferrotabs ] 240 Mg 240 mg PO DAILY [facility] Last Admin: 03/10/17 09:00 Dose: Not Given Nystatin (Nystatin Top Powder*) 1 applic TOPICAL BID [facility] Last Admin: 03/10/17 08:33 Dose: 1 applic Ondansetron HCl (Zofran Inj*) 4 mg IV Q6H PRN PRN Reason: NAUSEA Pharmacy Profile Note (Coumadin Daily Reminder*) 0 note FOLLOW UP 1700 [facility] Last Admin: 03/09/17 18:03 Dose: 1 note Warfarin Sodium (Coumadin Tab(*)) 6 mg PO DAILY@1700 [facility] PRN Reason: Protocol Last Admin: 03/09/17 18:02 Dose: 6 mg Warfarin Sodium (Coumadin Tab(*)) 2 mg PO DAILY@1700 [facility] Vital Signs: Temp Pulse Resp BP Pulse Ox 98.4 F 70 16 138/79 97 03/10/17 11:42 03/10/17 11:42 03/10/17 11:42 03/10/17 11:42 03/10/17 11:42 Appearance: Well appearing but chronically ill appearing middle aged female in NAD Respiratory: Symmetrical Chest Expansion and Respiratory Effort, Clear to Auscultation Cardiovascular: NL Sounds; No Murmurs; No JVD, RRR Extremities: - - trace LE edema Neurological: Alert and Oriented x 3 Result Diagrams: 03/10/17 05:56 03/10/17 05:56 Additional Lab and Data: . Diagnostic Imaging: CTA chest - no large PEs, limited study Assess/Plan/Problems-Billing Assessment: This is a 57 yo morbidly obese female with LUIS ANTONIO, h/o PE, GERD, HTN, asthma who presented with CP and SOB - Patient Problems (1) Chest pain Comment: Now resolved Troponins neg No lg PEs Stress portion of nuclear test was completed this am with shows what is likely breast attenuation but resting portion is recommended which will be done tomorrow morning (2) Hx of pulmonary embolus Comment: No large PEs noted on initial CTA but unable to visualize periphery well Chronically anticoagulated with Coumadin but subtherapeutic at admission Discussed switching to Xarelto, but she prefers to stay with Coumadin as she has been previously told there is an increased risk of abnormal uterine bleeding with Xarelto compared to Coumadin and she has previously had severe hemorrhage but no bleeding since Mirena IUD was placed Currently being bridged with Lovenox Give 8mg Coumadin this evening (3) LUIS ANTONIO (obstructive sleep apnea) Comment: Pending further evaluation with sleep lab (4) Dyslipidemia (5) HTN (hypertension) Comment: Normotensive Cont home medications (6) GERD (gastroesophageal reflux disease) (7) Morbid obesity Comment: BMI 63 Pending bariatric surgery consultation (8) DVT prophylaxis Comment: Warfarin currently being bridged with Lovenox (9) Full code status Status and Disposition: Transition to inpatient. Likely dc tomorrow following additional portion of stress test
[2017-03-10] MEDS ORDERED: Warfarin TAB(*) 1 MG PO SCH (17:00)
[2017-03-10] MEDS: Warfarin TAB(*) 6 MG PO SCH (17:20)
[2017-03-10] MEDS: Famotidine TAB* 20 MG PO SCH (19:41)
[2017-03-10] MEDS: Acetaminophen TAB* 325 MG PO PRN (21:26)
[2017-03-11] MEDS: Enoxaparin(*) 150 MG/ML 1 ML SYRINGE SUBCUT SCH (00:03)
[2017-03-11 08:10] VITALS: BP 140/66
--- NOTE | 2017-03-11 08:55 | RAD ---
Edited for charges. INDICATION: Chest pain, shortness of breath, hypertension. LBBB. COMPARISON: February 05, 2016 TECHNIQUE: On March 11, 2017, 25.770 mCi of Tc-99m Myoview were administered IV. SPECT images of the heart were obtained. On March 10, 2017, under the direction of Dr. Layton, the patient was given an IV injection of a pharmacologic stress agent. Subsequently, the patient was given an IV injection of 26.840 mCi Tc-99m Myoview. SPECT images of the heart were obtained and a gated wall motion study was performed. No CT for attenuation correction due to reduced range of motion of the arms. FINDINGS: Gated wall motion images were obtained at stress and demonstrate hypokinesia most marked at the septum and inferior wall. The calculated left ventricular ejection fraction is 51 % at stress and 60 % at rest. Estimated LEFT ventricular end diastolic volume is 105 mL at stress and 104 mL at rest. TID 0.79. Artifact from inferior gut activity. Limited image quality due to obesity and absence of CT for attenuation correction. Nonetheless the distribution of radiopharmaceutical is grossly normal throughout the LEFT ventricle. No compelling perfusion defects evident at stress or rest. IMPRESSION: 1. Global hypokinesia most marked at the septum and inferior wall. Lower limits of normal estimated LEFT ventricular ejection fraction at stress. 2. No compelling evidence for stress-induced ischemia or presence of an infarct. ASSESSMENT: LOW RISK. Based on imaging criteria from ACC/AHA 2002 Guideline Update for the Management of Patients With Chronic Stable Angina Table 23. Noninvasive Risk Stratification. MTDD
[2017-03-11] MEDS: FERROUS GLUCONATE 240 MG PO SCH (09:05)
[2017-03-11] MEDS: Metoprolol Tartrate TAB* 25 MG PO SCH (09:07)
[2017-03-11] MEDS: Aspirin EC Low Dose* 81 MG TAB.EC PO SCH (09:07)
[2017-03-11] MEDS: Nystatin TOP POWDER* 15 GM BTL TOPICAL SCH (10:58)
--- NOTE | 2017-03-12 06:26 | DS ---
CC: Dr. Murillo* DISCHARGE SUMMARY: DATE OF ADMISSION: 03/09/17 DATE OF DISCHARGE: 03/11/17 PRIMARY CARE PROVIDER: Dr. Murillo DISCHARGING PROVIDER: EDIE Cordoba SUPERVISING PHYSICIAN: Dr. Ngozi Lloyd * (DICTATED BY EDIE CORDOBA) PRIMARY DISCHARGE DIAGNOSIS: Chest pain - likely musculoskeletal. SECONDARY DISCHARGE DIAGNOSES: 1. History of pulmonary embolism. 2. Obstructive sleep apnea. 3. Hyperlipidemia. 4. Hypertension. 5. Gastroesophageal reflux disease. 6. Morbid obesity with a BMI of 63. DISCHARGE MEDICATIONS: 1. Albuterol 2 puffs inhaled q.4 hours as needed for shortness of breath. 2. Ferrous gluconate 240 mg daily. 3. Metoprolol tartrate 12.5 mg p.o. twice daily. 4. Nystatin powder applied topically twice daily. 5. Ranitidine 300 mg p.o. at bedtime. 6. Coumadin 8 mg daily. Medication changes: 1. Increase Coumadin to 8 mg for and then 7 mg daily with a repeat INR plan for Wednesday. HOSPITAL IMAGIN. Chest x-ray shows no acute process. 2. CTA of the chest limited by patient's body habitus, but shows no large PEs in the main pulmonary arteries. 3. Nuclear stress test was read as low risk without evidence of ischemia or infarct. HOSPITAL COURSE: This is a 57-year-old morbidly obese female with history of PE diagnosed in December of this year as well as obstructive sleep apnea, GERD, hypertension and asthma, who presented to the emergency department from the sleep clinic with complaints of chest pain and shortness of breath. Patient who was at the sleep clinic to get fitted for a CPAP mask when her symptoms started. She was having severe right-sided chest pain that was pleuritic and somewhat reproducible, and with increased work of breathing. Initial vitals were unremarkable. No ischemic changes on EKG and troponin was negative. Her INR was noted to be subtherapeutic at 1.32 at the time of admission. The patient reported that she had been taking her Coumadin as directed, which was 6 mg daily. The patient underwent CTA of the chest to evaluate for a new PE, but the study was limited by her body habitus, but there was no evidence of large clot burden. She was then admitted to a period of observation for further evaluation for her chest pain. The patient's pain spontaneously resolved. She underwent stress tests which was read as a low risk study and her troponins remained negative. Some of her pain returned on the day of discharge, but was reproducible with palpation over her right upper chest and was exacerbated by movement of her shoulder, and she does have a history of bursitis in that shoulder that has been flaring up recently. DISPOSITION FOLLOWUP AND PLAN: The patient is being discharged to home. Recommend increasing Coumadin to 8 mg for today and then 7 mg daily with a repeat INR on Wednesday and instructions to call her primary care provider's office on Wednesday after completing her INR for further dose instructions. Recommend followup with primary care provider within a week of discharge regarding the hospital stay and she does require followup with the sleep clinic to complete fitting for her CPAP machine. EDIE CORDOBA [id number]/[facility] #: [id number] DIVINA
== END 2017-03-11 11:16 | disposition home or self-care (01) | DRG 203 ==
LOC: ED 08:51 → MEDTELE 11:23 → OBSVTOIN 03-10 14:03
PROVIDERS: ADMIT Internal Medicine; ATTEND Internal Medicine
DX: R07.89 Other chest pain (principal); Z68.44 Body mass index [BMI] 60.0-69.9, adult; I10 Essential (primary) hypertension; G47.33 Obstructive sleep apnea (adult) (pediatric); J45.909 Unspecified asthma, uncomplicated; K21.9 Gastro-esophageal reflux disease without esophagitis; I44.7 Left bundle-branch block, unspecified; E66.01 Morbid (severe) obesity due to excess calories; R60.9 Edema, unspecified; I08.1 Rheumatic disorders of both mitral and tricuspid valves; G89.29 Other chronic pain; M25.569 Pain in unspecified knee; E78.5 Hyperlipidemia, unspecified; Z79.01 Long term (current) use of anticoagulants; Z86.711 Personal history of pulmonary embolism; Z90.49 Acquired absence of other specified parts of digestive tract; Z98.84 Bariatric surgery status; Z91.018 Allergy to other foods; Z82.49 Family history of ischemic heart disease and other diseases of the circulatory system; Z87.891 Personal history of nicotine dependence
CPT/HCPCS: 36415; 71010; 71275; 78452; 80048; 80053; 80061; 83036; 83605; 83735; 83880; 84484; 85025; 85610; 93017; A9270-GY; A9502; G0378; J0280; J1650; J2785; Q9967

== ENCOUNTER 2017-05-15 12:34 | Emergency (ER) | payer OTHER ==
[2017-05-15 13:51] LABS: Hematocrit 41 % (35-47); Hemoglobin 13.2 g/dl (12.0-16.0); Mean Corpuscular HGB Conc 32 g/dl (31-36); Mean Corpuscular Hemoglobin 26 pg (27-31); Mean Corpuscular Volume 81 fL (80-97); Mean Platelet Volume 9 um3 (7.4-10.4); Red Blood Count 5.08 10^6/ul (4.0-5.4); Red Cell Distribution Width 20 % (10.5-15); White Blood Count 7.2 10^3/ul (3.5-10.8)
[2017-05-15 14:09] LABS: Albumin 3.7 g/dL (3.2-5.2); BUN/Creatinine Ratio 17.9 (8-20); Calcium 9.1 mg/dL (8.6-10.3); EGFR African American 143.5 (>60); EGFR Non-African American 111.6 (>60); Globulin 2.5 g/dL (2-4); Total Bilirubin 0.4 mg/dL (0.2-1.0); Total Protein 6.2 g/dL (6.4-8.9)
[2017-05-15 14:43] LABS: Potassium 3.9 mmol/L (3.5-5.0)
[2017-05-15 14:58] LABS: Urine Bacteria Absent (Absent); Urine Bilirubin Negative (Negative); Urine Glucose 1+(50 mg/dL) (Negative); Urine Nitrite Positive (Negative)
--- NOTE | 2017-05-15 16:54 | RAD ---
HISTORY: Vaginal bleeding COMPARISONS: January 04, 2017 TECHNIQUE: Multiple transverse and longitudinal ultrasound images were obtained of the pelvis using grayscale and color Doppler imaging using the endovaginal transducer. FINDINGS: The study is limited by patient body habitus. UTERUS: The uterus measures 11.2 x 5.5 x 5.7 cm. Again noted is a fibroid of anterior uterine body. ENDOMETRIUM: The endometrial stripe is smooth. The endometrium measures 1 cm in thickness. A linear echogenic structure consistent IUD is noted in the endocervical canal. CUL-DE-SAC: There is no free fluid within the cul-de-sac. RIGHT OVARY: The right ovary is not clearly visualized.. LEFT OVARY: The left ovary is not clearly visualized. BLADDER: The bladder is not well visualized. OTHER: None IMPRESSION: 1. LIMITED STUDY. 2. FIBROID UTERUS. 3. LOW LYING IUD EXTENDING INTO THE ENDOCERVICAL CANAL. 4. THE OVARIES ARE NOT CLEARLY..
[2017-05-15] MEDS ORDERED: Cephalexin CAP* 500 MG PO ONE ×2 (17:43→18:49)
[2017-05-15 18:22] VITALS: BP 131/67
--- NOTE | 2017-05-15 21:00 | ED ---
Janette Parra Edward, scribed for Diogo Mckoy on 05/15/17 at 1306 . GI/ HPI - HPI Summary HPI Summary: 57 y/o female presents to ED c/o gradual onset vaginal bleeding for the past 2 weeks. It started as spotting 2 weeks ago and 2 days ago it turned into heavy bleeding. She states she changes her pads every 2-3 hours. Associated sx: denies ABD pain. Pt had an uncontrolled menstrual period in December 2016. PMHx PE , HTN, arthritis. - History of Current Complaint Chief Complaint: EDVaginalBleeding Time Seen by Provider: 05/15/17 12:46 Stated Complaint: VAG BLEEDING Hx Obtained From: Patient Hx Last Menstrual Period: N/A Onset/Duration: Started Weeks Ago - 2, Worse Since - 2 days ago Timing: Constant Severity: Worse Since: - 2-3 days ago Location of Pain: None Associated Signs and Symptoms: Negative: Abdominal Pain - Additional Pertinent History Primary Care Physician: OLGA - Allergy/Home Medications Allergies/Adverse Reactions: Allergies Allergy/AdvReac Type Severity Reaction Status Date / Time Buckwheat Allergy Intermediate Rash Verified 02/03/16 19:23 Dust Mite Extract Allergy Intermediate Headache Verified 02/03/16 19:23 PMH/Surg Hx/FS Hx/Imm Hx Previously Healthy: No Endocrine/Hematology History: Reports: Hx Anemia Denies: Hx Diabetes, Hx Unexplained Bleeding Cardiovascular History: Reports: Hx Angina, Hx Embolism, Hx Hypertension, 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; tricuspid gisele disease, Other Cardiovascular Problems/Disorders - left BBB, chronic edema Denies: Hx Aneurysm, Hx Angioplasty, Hx Auto Implanted Cardiovert Defib, Hx Cardiac Arrest, Hx Cardiomegaly, Hx Congenital Heart Disease, Hx Congestive Heart Failure, Hx Coronary Artery Disease, Hx Deep Vein Thrombosis, Hx Hypercholesterolemia, Hx Hypotension, Hx Myocardial Infarction, Hx Pacemaker/ICD , Hx Peripheral Vascular Disease, Hx Rheumatic Fever, Hx Syncope Respiratory History: Reports: Hx Asthma, Hx Pulmonary Embolism, Hx Sleep Apnea, Other Respiratory Problems/Disorders - PE hx 2004 liyah Denies: Hx Chronic Obstructive Pulmonary Disease (COPD) GI History: Reports: Hx Gall Bladder Disease - removed, Hx Gastroesophageal Reflux Disease, Other GI Disorders - stomach stapled History: Denies: Hx Renal Disease Musculoskeletal History: Reports: Hx Back Problems, Other Musculoskeletal History - chronic knee pain Sensory History: Reports: Hx Contacts or Glasses Denies: Hx Cataracts, Hx Eye Injury, Hx Eye Prosthesis, Hx Glaucoma, Hx Legally Blind, Hx Macular Degeneration, Hx Vision Problem, Other Sensory Impairments Opthamlomology History: Reports: Hx Contacts or Glasses Denies: Hx Cataracts, Hx Eye Injury, Hx Eye Prosthesis, Hx Glaucoma, Hx Legally Blind, Hx Macular Degeneration, Hx Vision Problem, Other Sensory Impairments Neurological History: Denies: Other Neuro Impairments/Disorders - Surgical History Surgery Procedure, Year, and Place: CARDIAC CATH, TONSILECTOMY, , RIGHT ABD HERNIA REPAIR X3, STOMACH STAPLING, CHOLECYSTECTOMY - Immunization History Date of Tetanus Vaccine: Unk Date of Influenza Vaccine: None Infectious Disease History: Denies: Hx Clostridium Difficile, Hx Hepatitis, Hx Human Immunodeficiency Virus (HIV), Hx of Known/Suspected MRSA, Hx Shingles, Hx Tuberculosis, Hx Known/ Suspected VRE, Hx Known/Suspected VRSA, History Other Infectious Disease, Traveled Outside the [place] in Last 30 Days - Family History Known Family History: Positive: Cardiac Disease - father with [place] and in 80's, Hypertension - father - Social History Alcohol Use: Rare Substance Use Type: Reports: None Hx Tobacco Use: No Smoking Status (MU): Former Smoker Type: Cigarettes Have You Smoked in the Last Year: No Review of Systems Constitutional: Negative Eyes: Negative ENT: Negative Cardiovascular: Negative Respiratory: Negative Gastrointestinal: Negative Genitourinary: Other - Heavy vaginal bleeding Musculoskeletal: Negative Skin: Negative Neurological: Negative Psychological: Normal All Other Systems Reviewed And Are Negative: Yes Physical Exam Triage Information Reviewed: Yes Vital Signs On Initial Exam: Initial Vitals Temp Pulse Resp BP Pulse Ox 98.2 F 71 16 132/69 94 05/15/17 13:15 05/15/17 13:15 05/15/17 13:15 05/15/17 13:15 05/15/17 13:15 Vital Signs Reviewed: Yes Appearance: Positive: Well-Appearing, No Pain Distress, Obese Skin: Positive: Warm, Skin Color Reflects Adequate Perfusion, Dry Head/Face: Positive: Normal Head/Face Inspection Eyes: Positive: EOMI, ARELY ENT: Positive: Normal ENT inspection Neck: Positive: Supple, Nontender Respiratory/Lung Sounds: Positive: Clear to Auscultation, Breath Sounds Present Cardiovascular: Positive: RRR, Pulses are Symmetrical in both Upper and Lower Extremities Abdomen Description: Positive: Nontender, Soft Bowel Sounds: Positive: Present Musculoskeletal: Positive: Normal, Strength/ROM Intact Neurological: Positive: Normal, Sensory/Motor Intact, Alert, Oriented to Person Place, Time Diagnostics - Vital Signs Vital Signs Temp Pulse Resp BP Pulse Ox 05/15/17 18:08 98.2 F 77 16 131/67 05/15/17 14:30 70 111/70 95 05/15/17 14:20 74 134/56 91 05/15/17 13:15 98.2 F 71 16 132/69 94 - Laboratory Lab Results: Lab Results 05/15/17 05/15/17 05/15/17 Range/Units 13:40 13:40 13:40 WBC 7.2 (3.5-10.8) 10^3/ul RBC 5.08 (4.0-5.4) 10^6/ul Hgb 13.2 (12.0-16.0) g/dl Hct 41 (35-47) % MCV 81 (80-97) fL MCH 26 L (27-31) pg MCHC 32 (31-36) g/dl RDW 20 H (10.5-15) % Plt Count 232 (150-450) 10^3/ul MPV 9 (7.4-10.4) um3 Neut % (Auto) 71.6 (38-83) % Lymph % (Auto) 17.0 L (25-47) % [place] % (Auto) 7.2 (1-9) % Eos % (Auto) 3.4 (0-6) % Baso % (Auto) 0.8 (0-2) % Absolute Neuts (auto) 5.2 (1.5-7.7) 10^3/ul Absolute Lymphs (auto) 1.2 (1.0-4.8) 10^3/ul Absolute Monos (auto) 0.5 (0-0.8) 10^3/ul Absolute Eos (auto) 0.2 (0-0.6) 10^3/ul Absolute Basos (auto) 0.1 (0-0.2) 10^3/ul Absolute Nucleated RBC 0.01 10^3/ul Nucleated RBC % 0.1 INR (Anticoag Therapy) 2.07 H (0.89-1.11) APTT 43.1 H (26.0-36.3) seconds Sodium 139 (133-145) mmol/L Potassium 3.9 (3.5-5.0) mmol/L Chloride 105 (101-111) mmol/L Carbon Dioxide 28 (22-32) mmol/L Anion Gap 6 (2-11) mmol/L BUN 10 (6-24) mg/dL Creatinine 0.56 (0.51-0.95) mg/dL Est GFR ( Amer) 143.5 (>60) Est GFR (Non-Af Amer) 111.6 (>60) BUN/Creatinine Ratio 17.9 (8-20) Glucose 127 H (70-100) mg/dL Calcium 9.1 (8.6-10.3) mg/dL Total Bilirubin 0.40 (0.2-1.0) mg/dL AST 13 (13-39) U/L ALT 13 (7-52) U/L Alkaline Phosphatase 53 (34-104) U/L Total Protein 6.2 L (6.4-8.9) g/dL Albumin 3.7 (3.2-5.2) g/dL Globulin 2.5 (2-4) g/dL Albumin/Globulin Ratio 1.5 (1-3) Beta HCG, Quant 1.15 mIU/mL Urine Color Urine Appearance Urine pH (5-9) Ur Specific Watson (1.010-1.030) Urine Protein (Negative) Urine Ketones (Negative) Urine Blood (Negative) Urine Nitrate (Negative) Urine Bilirubin (Negative) Urine Urobilinogen (Negative) Ur Leukocyte Esterase (Negative) Urine WBC (Auto) (Absent) Urine RBC (Auto) (Absent) Urine Bacteria (Absent) Urine Glucose (Negative) Blood Type Antibody Screen 05/15/17 05/15/17 Range/Units 13:40 14:25 WBC (3.5-10.8) 10^3/ul RBC (4.0-5.4) 10^6/ul Hgb (12.0-16.0) g/dl Hct (35-47) % MCV (80-97) fL MCH (27-31) pg MCHC (31-36) g/dl RDW (10.5-15) % Plt Count (150-450) 10^3/ul MPV (7.4-10.4) um3 Neut % (Auto) (38-83) % Lymph % (Auto) (25-47) % [place] % (Auto) (1-9) % Eos % (Auto) (0-6) % Baso % (Auto) (0-2) % Absolute Neuts (auto) (1.5-7.7) 10^3/ul Absolute Lymphs (auto) (1.0-4.8) 10^3/ul Absolute Monos (auto) (0-0.8) 10^3/ul Absolute Eos (auto) (0-0.6) 10^3/ul Absolute Basos (auto) (0-0.2) 10^3/ul Absolute Nucleated RBC 10^3/ul Nucleated RBC % INR (Anticoag Therapy) (0.89-1.11) APTT (26.0-36.3) seconds Sodium (133-145) mmol/L Potassium (3.5-5.0) mmol/L Chloride (101-111) mmol/L Carbon Dioxide (22-32) mmol/L Anion Gap (2-11) mmol/L BUN (6-24) mg/dL Creatinine (0.51-0.95) mg/dL Est GFR ( Amer) (>60) Est GFR (Non-Af Amer) (>60) BUN/Creatinine Ratio (8-20) Glucose (70-100) mg/dL Calcium (8.6-10.3) mg/dL Total Bilirubin (0.2-1.0) mg/dL AST (13-39) U/L ALT (7-52) U/L Alkaline Phosphatase (34-104) U/L Total Protein (6.4-8.9) g/dL Albumin (3.2-5.2) g/dL Globulin (2-4) g/dL Albumin/Globulin Ratio (1-3) Beta HCG, Quant mIU/mL Urine Color Nataliia Urine Appearance Cloudy Urine pH 6.0 (5-9) Ur Specific Watson 1.025 (1.010-1.030) Urine Protein 3+(>=500 mg/dl) H (Negative) Urine Ketones Negative (Negative) Urine Blood 3+ H (Negative) Urine Nitrate Positive H (Negative) Urine Bilirubin Negative (Negative) Urine Urobilinogen Negative (Negative) Ur Leukocyte Esterase Negative (Negative) Urine WBC (Auto) Absent (Absent) Urine RBC (Auto) 3+(>10/hpf) H (Absent) Urine Bacteria Absent (Absent) Urine Glucose 1+(50 mg/dl) H (Negative) Blood Type A Positive Antibody Screen Negative Result Diagrams: 05/15/17 13:40 05/15/17 13:40 Lab Statement: Any lab studies that have been ordered have been reviewed, and results considered in the medical decision making process. - Ultrasound No standard instances Ultrasound Interpretation: No Acute Changes - TRANSVAGINAL US - 1. LIMITED STUDY. 2. FIBROID UTERUS. 3. LOW LYING IUD EXTENDING INTO THE ENDOCERVICAL CANAL. 4. THE OVARIES ARE NOT CLEARLY.. ED PHYSICIAN AGREEABLE Ultrasound Interpretation Completed By: Kady MARTIN Course/Dx - Course Assessment/Plan: 57 y/o female presents to ED c/o gradual onset vaginal bleeding for the past 2 weeks. It started as spotting 2 weeks ago and 2 days ago it turned into heavy bleeding. Denies ABD pain. Pt had an uncontrolled menstrual period in December 2016. PMHx PE, HTN, arthritis. TRANSVAGINAL US - 1. LIMITED STUDY. 2. FIBROID UTERUS. 3. LOW LYING IUD EXTENDING INTO THE ENDOCERVICAL CANAL. 4. THE OVARIES ARE NOT CLEARLY.. ED PHYSICIAN AGREEABLE. Spoke with Dr. Guevara who recommends the pt f/u with him on Wednesday. Pt will be d/ c home and instructed to f/u with Dr. Guevara on Wednesday. Pt is agreeable with this plan. D/W WITH DR GUEVARA ABOUT THE COUMADIN SHE IS TAKING FOR PE AND HE RECOMMENDED TO CONTINUE AND FOLLOW UP WITH HIM ON WEDNESDAY. - Diagnoses Provider Diagnoses: Vaginal bleeding, UTI (urinary tract infection) - Physician Notifications Discussed Care Of Patient With: Sixto Guevara Time Discussed With Above Provider: 17:35 Instructed by Provider To: Have Pt Call For Appt. - On Wednesday Discharge - Discharge Plan Condition: Stable Disposition: HOME Prescriptions: Cephalexin [Keflex 750 MG] 750 mg PO BID #10 cap Patient Education Materials: Urinary Tract Infection in Women (ED) Referrals: Sixto Guevara MD [Medical Doctor] - 2 Days (PLEASE F/U ON WEDNESDAY, MAY 17 2017) The documentation as recorded by the Janette steve Edward accurately reflects the service I personally performed and the decisions made by me, Diogo Mckoy.
== END 2017-05-15 18:51 | disposition home or self-care (01) ==
LOC: ED 12:34
DX: N93.9 Abnormal uterine and vaginal bleeding, unspecified (principal); N39.0 Urinary tract infection, site not specified; I10 Essential (primary) hypertension; M19.90 Unspecified osteoarthritis, unspecified site; Z86.711 Personal history of pulmonary embolism; J45.909 Unspecified asthma, uncomplicated; Z87.891 Personal history of nicotine dependence; B96.29 Other Escherichia coli [E. coli] as the cause of diseases classified elsewhere
CPT/HCPCS: 36415; 76830; 80053; 81003; 81015; 84702; 85025; 85610; 85730; 86850; 86900; 86901; 87077; 87086; 87186; 87491; 87591; A9270-GY

== ENCOUNTER 2017-05-18 17:02 | Emergency (ER) | payer OTHER ==
[2017-05-18 19:43] LABS: Hematocrit 38 % (35-47); Mean Corpuscular HGB Conc 32 g/dl (31-36); Mean Corpuscular Hemoglobin 26 pg (27-31); Mean Corpuscular Volume 82 fL (80-97); Mean Platelet Volume 9 um3 (7.4-10.4); Red Blood Count 4.64 10^6/ul (4.0-5.4); Red Cell Distribution Width 21 % (10.5-15); White Blood Count 7.6 10^3/ul (3.5-10.8)
[2017-05-18 19:54] LABS: Albumin 3.4 g/dL (3.2-5.2); BUN/Creatinine Ratio 19.6 (8-20); Calcium 8.9 mg/dL (8.6-10.3); EGFR African American 159.9 (>60); EGFR Non-African American 124.3 (>60); Globulin 2.7 g/dL (2-4); Potassium 3.9 mmol/L (3.5-5.0); Total Bilirubin 0.4 mg/dL (0.2-1.0); Total Protein 6.1 g/dL (6.4-8.9)
[2017-05-18 20:38] VITALS: BP 140/68
--- NOTE | 2017-05-18 20:46 | ED ---
Brenda Parra Alfonso, scribed for Marko Petty MD on 05/18/17 at 1845 . GI/ HPI - HPI Summary HPI Summary: This patient is a 57 year old F presenting to [facility] accompanied by female with a chief complaint of vaginal bleeding since two weeks ago. The CC is described as clotting blood. The patient rates the pain 3/10 in severity. Symptoms aggravated by nothing. Symptoms alleviated by nothing. Patient reports suprapubic abdominal cramping, nausea, and dysuria. Patient denies bleeding from anywhere else, and melena. Pt had an US a few days ago. She reports changing pads every three hours. Pt reports an IUD. - History of Current Complaint Chief Complaint: EDVaginalBleeding Time Seen by Provider: 05/18/17 18:39 Stated Complaint: VAGINAL BLEEDING Hx Obtained From: Patient Hx Last Menstrual Period: N/A Onset/Duration: Started Weeks Ago - 2, Still Present Severity: Moderate Current Severity: Moderate Vaginal Bleeding Description: Clots Number of Pads per Hour: 3 Pain Intensity: 3 - 3/10 Location of Pain: Suprapubic Pain Characteristics: Cramping Associated Signs and Symptoms: Positive: Other: - . Patient reports suprapubic abdominal cramping, nausea, and dysuria. Patient denies bleeding from anywhere else, and melena. Additional Signs & Symptoms: Positive: IUD Aggravating Factor(s): Nothing Alleviating Factor(s): Nothing - Additional Pertinent History Primary Care Physician: [id number] - Allergy/Home Medications Allergies/Adverse Reactions: Allergies Allergy/AdvReac Type Severity Reaction Status Date / Time Buckwheat Allergy Intermediate Rash Verified 05/18/17 17:03 Dust Mite Extract Allergy Intermediate Headache Verified 05/18/17 17:03 PMH/Surg Hx/FS Hx/Imm Hx Endocrine/Hematology History: Reports: Hx Anemia Denies: Hx Diabetes, Hx Unexplained Bleeding Cardiovascular History: Reports: Hx Angina, Hx Embolism, Hx Hypertension, 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; tricuspid gisele disease, Other Cardiovascular Problems/Disorders - left BBB, chronic edema Denies: Hx Aneurysm, Hx Angioplasty, Hx Auto Implanted Cardiovert Defib, Hx Cardiac Arrest, Hx Cardiomegaly, Hx Congenital Heart Disease, Hx Congestive Heart Failure, Hx Coronary Artery Disease, Hx Deep Vein Thrombosis, Hx Hypercholesterolemia, Hx Hypotension, Hx Myocardial Infarction, Hx Pacemaker/ICD , Hx Peripheral Vascular Disease, Hx Rheumatic Fever, Hx Syncope Respiratory History: Reports: Hx Asthma, Hx Pulmonary Embolism, Hx Sleep Apnea, Other Respiratory Problems/Disorders - PE hx 2005 liyah Denies: Hx Chronic Obstructive Pulmonary Disease (COPD) GI History: Reports: Hx Gall Bladder Disease - removed, Hx Gastroesophageal Reflux Disease, Other GI Disorders - stomach stapled History: Denies: Hx Renal Disease Musculoskeletal History: Reports: Hx Back Problems, Other Musculoskeletal History - chronic knee pain Sensory History: Reports: Hx Contacts or Glasses Denies: Hx Cataracts, Hx Eye Injury, Hx Eye Prosthesis, Hx Glaucoma, Hx Legally Blind, Hx Macular Degeneration, Hx Vision Problem, Other Sensory Impairments Opthamlomology History: Reports: Hx Contacts or Glasses Denies: Hx Cataracts, Hx Eye Injury, Hx Eye Prosthesis, Hx Glaucoma, Hx Legally Blind, Hx Macular Degeneration, Hx Vision Problem, Other Sensory Impairments Neurological History: Denies: Other Neuro Impairments/Disorders - Surgical History Surgery Procedure, Year, and Place: CARDIAC CATH, TONSILECTOMY, , RIGHT ABD HERNIA REPAIR X3, STOMACH STAPLING, CHOLECYSTECTOMY - Immunization History Date of Tetanus Vaccine: Unk Date of Influenza Vaccine: None Infectious Disease History: No Infectious Disease History: Denies: Hx Clostridium Difficile, Hx Hepatitis, Hx Human Immunodeficiency Virus (HIV), Hx of Known/Suspected MRSA, Hx Shingles, Hx Tuberculosis, Hx Known/ Suspected VRE, Hx Known/Suspected VRSA, History Other Infectious Disease, Traveled Outside the [place] in Last 30 Days - Family History Known Family History: Positive: Cardiac Disease - father with [place] and in 80's, Hypertension - father - Social History Alcohol Use: Rare Substance Use Type: Reports: None Hx Tobacco Use: No Smoking Status (MU): Former Smoker Type: Cigarettes Have You Smoked in the Last Year: No Review of Systems Positive: Abdominal Pain - suprapubic abdominal cramping, Nausea, Other - Negative melena. Positive: dysuria, other - Vaginal bleeding, Positive: Other - Negative bleeding from anywhere else. All Other Systems Reviewed And Are Negative: Yes Physical Exam - Summary Physical Exam Summary: The patient is well-nourished in no acute distress and in no acute pain. The skin is warm and dry and skin color reflects adequate perfusion. HEENT: The head is normocephalic and atraumatic. The pupils are equal and reactive. Sclera are not pale. The conjunctivae are clear and without drainage.Nares are patent and without drainage. Mouth reveals moist mucous membranes and the throat is without erythema and exudate. The external ears are intact. Neck is supple with full range of motion and non-tender. There are no carotid bruits. There is no neck vein distension. Respiratory: Chest is non-tender. Lungs are clear to auscultation and breath sounds are symmetrical and equal. Cardiovascular: Heart is regular rate and rhythm. There is no murmur or rub auscultated. Pulses are symmetrical and equal. Abdomen: The abdomen is morbidly obese, and soft. Suprapubic tenderness. There are normal bowel sounds heard in all four quadrants and there is no organomegaly palpated. Musculoskeletal: There is no back pain noted.~Extremities are non-tender with full range of motion. There is good capillary refill. There is lower extremity edema. Neurological: Patient is alert and oriented to person, place and time. The patient has symmetrical motor strength in all four extremities. Cranial nerves are grossly intact. Deep tendon reflexes are symmetrical and equal in all four extremities. Psychiatric: The patient has an appropriate affect and does not exhibit any anxiety or depression. Triage Information Reviewed: Yes Vital Signs On Initial Exam: Initial Vitals Temp Pulse Resp BP Pulse Ox 96.1 F 79 20 143/65 97 05/18/17 17:03 05/18/17 17:03 05/18/17 17:03 05/18/17 17:03 05/18/17 17:03 Vital Signs Reviewed: Yes - Santiago Coma Scale Coma Scale Total: 15 Diagnostics - Vital Signs Vital Signs Temp Pulse Resp BP Pulse Ox 05/18/17 18:00 74 19 95 05/18/17 17:45 72 93 05/18/17 17:44 129/68 05/18/17 17:31 96.1 F 79 20 143/65 97 05/18/17 17:03 96.1 F 79 20 143/65 97 - Laboratory Lab Results: Lab Results 05/18/17 05/18/17 05/18/17 Range/Units 19:15 19:15 19:15 WBC 7.6 (3.5-10.8) 10^3/ul RBC 4.64 (4.0-5.4) 10^6/ul Hgb 12.0 (12.0-16.0) g/dl Hct 38 (35-47) % MCV 82 (80-97) fL MCH 26 L (27-31) pg MCHC 32 (31-36) g/dl RDW 21 H (10.5-15) % Plt Count 233 (150-450) 10^3/ul MPV 9 (7.4-10.4) um3 Neut % (Auto) 67.1 (38-83) % Lymph % (Auto) 22.7 L (25-47) % Lynn % (Auto) 6.6 (1-9) % Eos % (Auto) 2.9 (0-6) % Baso % (Auto) 0.7 (0-2) % Absolute Neuts (auto) 5.1 (1.5-7.7) 10^3/ul Absolute Lymphs (auto) 1.7 (1.0-4.8) 10^3/ul Absolute Monos (auto) 0.5 (0-0.8) 10^3/ul Absolute Eos (auto) 0.2 (0-0.6) 10^3/ul Absolute Basos (auto) 0.1 (0-0.2) 10^3/ul Absolute Nucleated RBC 0.01 10^3/ul Nucleated RBC % 0.1 INR (Anticoag Therapy) 1.62 H (0.89-1.11) Sodium 138 (133-145) mmol/L Potassium 3.9 (3.5-5.0) mmol/L Chloride 103 (101-111) mmol/L Carbon Dioxide 31 (22-32) mmol/L Anion Gap 4 (2-11) mmol/L BUN 10 (6-24) mg/dL Creatinine 0.51 (0.51-0.95) mg/dL Est GFR ( Amer) 159.9 (>60) Est GFR (Non-Af Amer) 124.3 (>60) BUN/Creatinine Ratio 19.6 (8-20) Glucose 103 H (70-100) mg/dL Lactic Acid (0.5-2.0) mmol/L Calcium 8.9 (8.6-10.3) mg/dL Total Bilirubin 0.40 (0.2-1.0) mg/dL AST 13 (13-39) U/L ALT 13 (7-52) U/L Alkaline Phosphatase 50 (34-104) U/L Total Protein 6.1 L (6.4-8.9) g/dL Albumin 3.4 (3.2-5.2) g/dL Globulin 2.7 (2-4) g/dL Albumin/Globulin Ratio 1.3 (1-3) 08/29/17 Range/Units 19:15 WBC (3.5-10.8) 10^3/ul RBC (4.0-5.4) 10^6/ul Hgb (12.0-16.0) g/dl Hct (35-47) % MCV (80-97) fL MCH (27-31) pg MCHC (31-36) g/dl RDW (10.5-15) % Plt Count (150-450) 10^3/ul MPV (7.4-10.4) um3 Neut % (Auto) (38-83) % Lymph % (Auto) (25-47) % Lynn % (Auto) (1-9) % Eos % (Auto) (0-6) % Baso % (Auto) (0-2) % Absolute Neuts (auto) (1.5-7.7) 10^3/ul Absolute Lymphs (auto) (1.0-4.8) 10^3/ul Absolute Monos (auto) (0-0.8) 10^3/ul Absolute Eos (auto) (0-0.6) 10^3/ul Absolute Basos (auto) (0-0.2) 10^3/ul Absolute Nucleated RBC 10^3/ul Nucleated RBC % INR (Anticoag Therapy) (0.89-1.11) Sodium (133-145) mmol/L Potassium (3.5-5.0) mmol/L Chloride (101-111) mmol/L Carbon Dioxide (22-32) mmol/L Anion Gap (2-11) mmol/L BUN (6-24) mg/dL Creatinine (0.51-0.95) mg/dL Est GFR ( Amer) (>60) Est GFR (Non-Af Amer) (>60) BUN/Creatinine Ratio (8-20) Glucose (70-100) mg/dL Lactic Acid 1.1 (0.5-2.0) mmol/L Calcium (8.6-10.3) mg/dL Total Bilirubin (0.2-1.0) mg/dL AST (13-39) U/L ALT (7-52) U/L Alkaline Phosphatase (34-104) U/L Total Protein (6.4-8.9) g/dL Albumin (3.2-5.2) g/dL Globulin (2-4) g/dL Albumin/Globulin Ratio (1-3) Result Diagrams: 05/18/17 19:15 05/18/17 19:15 Lab Statement: Any lab studies that have been ordered have been reviewed, and results considered in the medical decision making process. GIGU Course/Dx - Course Assessment/Plan: This patient is a 57 year old F presenting to [facility] accompanied by female with a chief complaint of vaginal bleeding since two weeks ago. The CC is described as clotting blood. The patient rates the pain 3/ 10 in severity. Symptoms aggravated by nothing. Symptoms alleviated by nothing. Patient reports suprapubic abdominal cramping, nausea, and dysuria. Patient denies bleeding from anywhere else, and melena. Pt had an US a few days ago. She reports changing pads every three hours. Pt reports an IUD. Patient will be discharged with follow up from Dr. Murillo (PCP) and Dr. Raines (OBGYN). The patient is agreeable with this plan. - Diagnoses Differential Diagnoses - Female: Urinary Tract Infection, Other - vaginal bleeding, fibroid uterus, dub, anticoagulation therapy Provider Diagnoses: Vaginal bleeding Discharge - Discharge Plan Condition: Stable Disposition: HOME Patient Education Materials: Uterine Fibroids (ED) Referrals: Serena Murillo MD [Primary Care Provider] - 3 Days Julio Raines MD [Medical Doctor] - 1 Day The documentation as recorded by the Brenda steve Alfonso accurately reflects the service I personally performed and the decisions made by , Marko Petty MD.
== END 2017-05-18 21:05 | disposition home or self-care (01) ==
LOC: ED 17:02
DX: N93.9 Abnormal uterine and vaginal bleeding, unspecified (principal); Z87.891 Personal history of nicotine dependence; Z97.5 Presence of (intrauterine) contraceptive device; J45.909 Unspecified asthma, uncomplicated; Z86.711 Personal history of pulmonary embolism
CPT/HCPCS: 36415; 80053; 83605; 85025; 85610; 99283

== ENCOUNTER 2017-06-04 03:03 | Emergency (ER) | payer OTHER ==
[2017-06-04 03:13] VITALS: BP 139/69
[2017-06-04] MEDS ORDERED: HYDROmorphone* 1 MG/ML 1 ML CARPUJECT IV ONE (03:33)
[2017-06-04] MEDS ORDERED: Ondansetron INJ* 2 MG/ML VIAL IV ONE (03:33)
[2017-06-04] MEDS ORDERED: Cyclobenzaprine TAB* 10 MG PO ONE ×2 (03:33→05:45)
[2017-06-04] MEDS ORDERED: Ketorolac INJ* 30 MG/ML 1 ML VIAL IV ONE (03:33)
--- NOTE | 2017-06-04 05:30 | ED ---
Shakeel Parra Angela, scribed for Dina Waterman MD on 06/04/17 at 0331 . Back Pain - HPI Summary HPI Summary: This pt is a 57 y/o female accompanied by her brother presenting to [facility] c/o low back pain x4 days. Pt reports that her pain is aggravated with movement of legs. Pt has taken tylenol with no relief. Pt's PMHx includes HTN, sleep apnea, left knee arthritis, degenerative disc disease, pulmonary embolism (in November) and was on coumadin. Her PCP is Dr. Murillo. She denies any tobacco, drug or alcohol use. - History of Current Complaint Chief Complaint: EDBackInjuryPain Stated Complaint: BACK PAIN Hx Obtained From: Patient, Family/Demo Event Specialist Hx Last Menstrual Period: N/A Onset/Duration: Lasting Days Onset/Duration: Started Days Ago Timing: Lasting Hours Back Pain Location: Is Discrete @ - low back Pain Intensity: 8 Pain Scale Used: 0-10 Numeric Character: Aching Aggravating Symptom(s): Movement - of legs Associated Signs And Symptoms: Negative: Swelling, Redness, Abdominal Pain, Flank Pain, Bladder Incontinence, Bowel Incontinence - Allergies/Home Medications Allergies/Adverse Reactions: Allergies Allergy/AdvReac Type Severity Reaction Status Date / Time Buckwheat Allergy Intermediate Rash Verified 06/04/17 03:11 Dust Mite Extract Allergy Intermediate Headache Verified 06/04/17 03:11 PMH/Surg Hx/FS Hx/Imm Hx Endocrine/Hematology History: Reports: Hx Anemia Denies: Hx Diabetes, Hx Unexplained Bleeding Cardiovascular History: Reports: Hx Angina, Hx Embolism, Hx Hypertension, 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; tricuspid gisele disease, Other Cardiovascular Problems/Disorders - left BBB, chronic edema Denies: Hx Aneurysm, Hx Angioplasty, Hx Auto Implanted Cardiovert Defib, Hx Cardiac Arrest, Hx Cardiomegaly, Hx Congenital Heart Disease, Hx Congestive Heart Failure, Hx Coronary Artery Disease, Hx Deep Vein Thrombosis, Hx Hypercholesterolemia, Hx Hypotension, Hx Myocardial Infarction, Hx Pacemaker/ICD , Hx Peripheral Vascular Disease, Hx Rheumatic Fever, Hx Syncope Respiratory History: Reports: Hx Asthma, Hx Pulmonary Embolism, Hx Sleep Apnea, Other Respiratory Problems/Disorders - PE hx 2005 liyah Denies: Hx Chronic Obstructive Pulmonary Disease (COPD) GI History: Reports: Hx Gall Bladder Disease - removed, Hx Gastroesophageal Reflux Disease, Other GI Disorders - stomach stapled History: Denies: Hx Renal Disease Musculoskeletal History: Reports: Hx Back Problems, Other Musculoskeletal History - chronic knee pain Sensory History: Reports: Hx Contacts or Glasses Denies: Hx Cataracts, Hx Eye Injury, Hx Eye Prosthesis, Hx Glaucoma, Hx Legally Blind, Hx Macular Degeneration, Hx Vision Problem, Other Sensory Impairments Opthamlomology History: Reports: Hx Contacts or Glasses Denies: Hx Cataracts, Hx Eye Injury, Hx Eye Prosthesis, Hx Glaucoma, Hx Legally Blind, Hx Macular Degeneration, Hx Vision Problem, Other Sensory Impairments Neurological History: Denies: Other Neuro Impairments/Disorders - Surgical History Surgery Procedure, Year, and Place: CARDIAC CATH, TONSILECTOMY, , RIGHT ABD HERNIA REPAIR X3, STOMACH STAPLING, CHOLECYSTECTOMY - Immunization History Date of Tetanus Vaccine: Unk Date of Influenza Vaccine: None Infectious Disease History: No Infectious Disease History: Denies: Hx Clostridium Difficile, Hx Hepatitis, Hx Human Immunodeficiency Virus (HIV), Hx of Known/Suspected MRSA, Hx Shingles, Hx Tuberculosis, Hx Known/ Suspected VRE, Hx Known/Suspected VRSA, History Other Infectious Disease, Traveled Outside the [place] in Last 30 Days - Family History Known Family History: Positive: Cardiac Disease - father with [place] and in 80's, Hypertension - father - Social History Lives: Alone Alcohol Use: Rare Substance Use Type: Reports: None Hx Tobacco Use: No Smoking Status (MU): Former Smoker Type: Cigarettes Have You Smoked in the Last Year: No Review of Systems Negative: Fever, Chills Eyes: Negative ENT: Negative Cardiovascular: Negative Negative: Shortness Of Breath, Cough Gastrointestinal: Negative Genitourinary: Negative Positive: Other - back pain Skin: Negative Neurological: Negative All Other Systems Reviewed And Are Negative: Yes Physical Exam Triage Information Reviewed: Yes Vital Signs On Initial Exam: Initial Vitals Temp Pulse Resp BP Pulse Ox 99.3 F 70 16 139/69 96 06/04/17 03:06 06/04/17 03:06 06/04/17 03:06 06/04/17 03:06 06/04/17 03:06 Vital Signs Reviewed: Yes Appearance: Positive: Well-Appearing, No Pain Distress Skin: Positive: Warm, Skin Color Reflects Adequate Perfusion, Dry Eyes: Positive: EOMI, ARELY ENT: Positive: Pharynx normal, TMs normal Neck: Positive: Supple, Nontender Respiratory/Lung Sounds: Positive: Clear to Auscultation, Breath Sounds Present. Negative: Rales, Rhonchi, Wheezes Cardiovascular: Positive: RRR. Negative: Murmur, Rub, Other - gallop Abdomen Description: Positive: Nontender, Soft. Negative: Distended, Guarding, Other: - rebound Bowel Sounds: Positive: Present Musculoskeletal: Positive: Strength/ROM Intact. Negative: Edema Left, Edema Right Neurological: Positive: Sensory/Motor Intact, Alert, Oriented to Person Place, Time, CN Intact II-III Psychiatric: Positive: Affect/Mood Appropriate - Santiago Coma Scale Coma Scale Total: 15 Diagnostics - Vital Signs Vital Signs Temp Pulse Resp BP Pulse Ox 06/04/17 03:06 99.3 F 70 16 139/69 96 - Laboratory Lab Statement: Any lab studies that have been ordered have been reviewed, and results considered in the medical decision making process. Back Pain Course/Dx - Course Course Of Treatment: 57 yo morbidly obese female with sciactica and l4-l5 tenderness going down left leg she is neurovasculalry intact with normal great toe raise and normal 5/5 hip flexor strength and dtr's no fevers no chills. She is feeling much better after iv pain meds and will be going home, close f/u - Diagnoses Provider Diagnoses: Sciatica Discharge - Discharge Plan Condition: Stable Disposition: HOME Prescriptions: Cyclobenzaprine TAB* [Flexeril 10 MG TAB*] 10 mg PO TID PRN #30 tab PRN Reason: Spasms HYDROcodone/ACETAMIN 5-325 MG* [[place] 5-325 TAB*] 1 tab PO Q8H PRN #9 tab MDD 3 PRN Reason: Pain The documentation as recorded by the Shakeel steve Angela accurately reflects the service I personally performed and the decisions made by me, Dina Waterman MD.
[2017-06-04] MEDS ORDERED: HYDROcodone/ACETAMIN 5-325 MG* 1 TAB PO ONE (05:45)
== END 2017-06-04 06:26 | disposition home or self-care (01) ==
LOC: ED 03:03
DX: M54.32 Sciatica, left side (principal); E66.01 Morbid (severe) obesity due to excess calories; Z87.891 Personal history of nicotine dependence; I10 Essential (primary) hypertension; Z86.711 Personal history of pulmonary embolism
CPT/HCPCS: 96374; 96375; 96376; 99283; A9270-GY; J1170; J1885; J2405

== ENCOUNTER 2017-06-06 08:18 | Inpatient (IN) | payer OTHER ==
[2017-06-06] MEDS ORDERED: Ketorolac INJ* 30 MG/ML 1 ML VIAL IV ONE (08:57)
[2017-06-06] MEDS ORDERED: Morphine INJ* 2 MG/ML 1 ML CARPUJECT IV ONE (08:57)
[2017-06-06] MEDS ORDERED: Dexamethasone IV* 4 MG/ML 1 ML (4 MG) IV SLOW PU ONE (08:59)
[2017-06-06] MEDS ORDERED: Orphenadrine Citrate IV* 30 MG/ML 2 ML VIAL IV ONE (08:59)
[2017-06-06] MEDS ORDERED: Nystatin TOP POWDER* 15 GM BTL TOPICAL SCH (09:00)
[2017-06-06 09:40] LABS: Hematocrit 42 % (35-47); Hemoglobin 13.4 g/dl (12.0-16.0); Mean Corpuscular HGB Conc 32 g/dl (31-36); Mean Corpuscular Hemoglobin 27 pg (27-31); Mean Corpuscular Volume 85 fL (80-97); Mean Platelet Volume 10 um3 (7.4-10.4); Red Blood Count 4.94 10^6/ul (4.0-5.4); Red Cell Distribution Width 19 % (10.5-15); White Blood Count 7.9 10^3/ul (3.5-10.8)
[2017-06-06 10:05] LABS: Albumin 3.8 g/dL (3.2-5.2); BUN/Creatinine Ratio 26.2 (8-20); C Reactive Protein 55.6 mg/L (< 5.00); Calcium 9.4 mg/dL (8.6-10.3); EGFR Non-African American 101.1 (>60); Globulin 3.1 g/dL (2-4); Total Bilirubin 0.4 mg/dL (0.2-1.0); Total Protein 6.9 g/dL (6.4-8.9)
[2017-06-06 10:31] LABS: Erythrocyte Sed Rate 36 mm/Hr (0-30)
[2017-06-06] MEDS ORDERED: Morphine INJ* 4 MG/ML 1 ML CARPUJECT IV ONE (10:45)
[2017-06-06] MEDS ORDERED: Morphine INJ* 2 MG/ML 1 ML CARPUJECT ONE (11:04)
--- NOTE | 2017-06-06 11:21 | RAD ---
Indication: RIGHT side see hepatic distribution lower extremity pain extending from the lower back. Comparison: February 21, 2016 CT. Technique: Noncontrast CT lumbar sacral spine. Multiplanar reformation. Report: Obese body habitus limits image quality. Negative for paraspinal hematoma. Negative for fracture or spondylolysis at any level. Straightening relative to normal lumbar lordosis. Minimal grade 1 degenerative L3-L4 retrolisthesis. Multilevel advanced degenerative spondylosis and facet joint osteoarthritis. Congenitally short pedicles predispose to development of acquired spinal stenosis. T12-L1: Unremarkable disc level for age without acquired spinal stenosis. L1-L2: Unremarkable disc level for age without acquired spinal stenosis. L2-L3: Moderately severe disc space narrowing. Dorsal disc osteophyte complex and facet joint ligamentous hypertrophy results in mild acquired central canal stenosis. L3-L4: Advanced disc space narrowing. Dorsal disc osteophyte complex and posterior element hypertrophic arthropathy results in severe acquired central canal stenosis and mild RIGHT and moderate LEFT foraminal stenosis. L4-L5: While detail is limited there is suggestion of annular disc bulge with along with posterior element hypertrophic arthropathy results in moderate acquired central canal stenosis and moderate RIGHT and moderately severe LEFT foraminal stenosis. L5-S1: Severe facet joint osteoarthritis. No significant central canal stenosis evident. Mild LEFT foraminal stenosis. IMPRESSION: 1. Negative for fracture. 2. No significant interval change in multilevel advanced degenerative spondylosis and facet joint osteoarthritis with associated central canal and foraminal stenosis as described.
[2017-06-06] MEDS ORDERED: Albuterol HFA INHALER* 8 gm MDI INH PRN (12:40)
--- NOTE | 2017-06-06 12:57 | ED ---
[place] Parra SooYoung, scribed for Raffaele Ariza MD on 06/06/17 at 0827 . Back Pain - HPI Summary HPI Summary: A 57 y/o F WILBERT presents to ED with c/o severe back pain located at buttocks and radiating down LLE onset 6 days ago. She was last seen at [facility] two days ago for back pain, dx: sciatica and given Rx for Flexeril, Dorena. Associated sx : bowel/urinary incontinence 1x when she attempted to stand up. She states she' s been unpacking her apartment this week. Pert PMHx: DDD, osteoarthritis in L knee. Aggravating factors: movement. - History of Current Complaint Stated Complaint: BACK PAIN Time Seen by Provider: 06/06/17 08:24 Hx Obtained From: Patient Hx Last Menstrual Period: N/A Onset/Duration: Lasting Days, Still Present Timing: Constant Back Pain Location: Is Discrete @ - buttocks, Radiates To - LE Severity Initially: Moderate Severity Currently: Moderate Pain Intensity: 9 Pain Scale Used: 0-10 Numeric Aggravating Symptom(s): Movement Associated Signs And Symptoms: Positive: Bladder Incontinence, Bowel Incontinence - Allergies/Home Medications Allergies/Adverse Reactions: Allergies Allergy/AdvReac Type Severity Reaction Status Date / Time Buckwheat Allergy Intermediate Rash Verified 06/04/17 03:11 Dust Mite Extract Allergy Intermediate Headache Verified 06/04/17 03:11 PMH/Surg Hx/FS Hx/Imm Hx Previously Healthy: No Endocrine/Hematology History: Reports: Hx Anemia Denies: Hx Diabetes, Hx Unexplained Bleeding Cardiovascular History: Reports: Hx Angina, Hx Embolism, Hx Hypertension, 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; tricuspid gisele disease, Other Cardiovascular Problems/Disorders - left BBB, chronic edema Denies: Hx Aneurysm, Hx Angioplasty, Hx Auto Implanted Cardiovert Defib, Hx Cardiac Arrest, Hx Cardiomegaly, Hx Congenital Heart Disease, Hx Congestive Heart Failure, Hx Coronary Artery Disease, Hx Deep Vein Thrombosis, Hx Hypercholesterolemia, Hx Hypotension, Hx Myocardial Infarction, Hx Pacemaker/ICD , Hx Peripheral Vascular Disease, Hx Rheumatic Fever, Hx Syncope Respiratory History: Reports: Hx Asthma, Hx Pulmonary Embolism, Hx Sleep Apnea, Other Respiratory Problems/Disorders - PE hx 2004 liyah Denies: Hx Chronic Obstructive Pulmonary Disease (COPD) GI History: Reports: Hx Gall Bladder Disease - removed, Hx Gastroesophageal Reflux Disease, Other GI Disorders - stomach stapled History: Denies: Hx Renal Disease Musculoskeletal History: Reports: Hx Back Problems, Other Musculoskeletal History - chronic knee pain Sensory History: Reports: Hx Contacts or Glasses Denies: Hx Cataracts, Hx Eye Injury, Hx Eye Prosthesis, Hx Glaucoma, Hx Legally Blind, Hx Macular Degeneration, Hx Vision Problem, Other Sensory Impairments Opthamlomology History: Reports: Hx Contacts or Glasses Denies: Hx Cataracts, Hx Eye Injury, Hx Eye Prosthesis, Hx Glaucoma, Hx Legally Blind, Hx Macular Degeneration, Hx Vision Problem, Other Sensory Impairments Neurological History: Denies: Other Neuro Impairments/Disorders - Surgical History Surgery Procedure, Year, and Place: CARDIAC CATH, TONSILECTOMY, , RIGHT ABD HERNIA REPAIR X3, STOMACH STAPLING, CHOLECYSTECTOMY - Immunization History Date of Tetanus Vaccine: Unk Date of Influenza Vaccine: None Infectious Disease History: Denies: Hx Clostridium Difficile, Hx Hepatitis, Hx Human Immunodeficiency Virus (HIV), Hx of Known/Suspected MRSA, Hx Shingles, Hx Tuberculosis, Hx Known/ Suspected VRE, Hx Known/Suspected VRSA, History Other Infectious Disease, Traveled Outside the [place] in Last 30 Days - Family History Known Family History: Positive: Cardiac Disease - father with MS and in 80's, Hypertension - father - Social History Occupation: Unemployed Lives: Alone Alcohol Use: Rare Hx Substance Use: No Substance Use Type: Reports: None Hx Tobacco Use: No Smoking Status (MU): Former Smoker Type: Cigarettes Have You Smoked in the Last Year: No Review of Systems Positive: incontinence - urinay and bowel Positive: Other - pos: lower back pain radiating to LLE All Other Systems Reviewed And Are Negative: Yes Physical Exam - Summary Physical Exam Summary: General: Patient is an obese female with some distress secondary to the back pain. Skin: [place], warm, dry HEAD AND FACE: No signs of trauma. EYES: PERRLA, EOMI x 2. EARS: Hearing grossly intact. MOUTH: Oropharynx within normal limits. NECK: Supple, trachea is midline, no adenopathy, no JVD. CHEST: Symmetric, no tenderness at palpation LUNGS: CTA bilaterally, no rales, rhonchi or wheezing CVS: RRR, no murmur, rub, or gallop ABDOMEN: Obese, soft and Nontender without masses, no guarding or rebound. Bowel sounds are active. No Hepato-splenomegaly. No signs of inguinal hernias. BACK: Patient came via ambulance to the ED room, and she was able to stand up from stretcher and transfer to the stretcher with symmetric ambulation, No signs of limping, antalgic, able to bear weight. No signs of trauma, no soft tissue or muscle tenderness, No spasm in the Paraspinal muscles of the lumbar spine. No masses palpated. No CVAT, no flank ecchymosis . No sacroiliac notch tenderness, No saddle anesthesia ROM: decreased flexion, extension and lateral bending and rotation secondary to pain Straight Leg Raise: positive if radiates below knee at 30 degrees. Patellar reflexes: brisk, symmetric Muscle strength lower extremities. Dorsiflexion, plantar flexion of ankles normal. Lower extremities: Femoral, popliteal, posterior tibial, and pedal pulses with in normal, Rectal: normal sphincter tone. No hemorrhooids. Nurse Jacklyn chaperoned. Triage Information Reviewed: Yes Vital Signs Reviewed: Yes Diagnostics - Laboratory Result Diagrams: 06/06/17 08:55 06/06/17 08:55 Lab Statement: Any lab studies that have been ordered have been reviewed, and results considered in the medical decision making process. - CT L SPINE CT Interpretation: No Acute Changes - IMPRESSION: 1. Negative for fracture. 2. No significant interval change in multilevel advanced degenerative spondylosis and facet joint osteoarthritis with associated central canal and foraminal stenosis as described. ED physician has reviewed this radiology report and agrees CT Interpretation Completed By: Radiologist Re-Evaluation - Re-Evaluation 1 Re-Evaluation Time: 11:32 Change: Improved Comment: Discussing results with pt. Pt states mild degree of relief, but is still in pain. Back Pain Course/Dx - Course Course Of Treatment: Pt is a 57 y/o F presenting with severe lower back pain radiating down LLE onset 6 days ago. Last seen at [facility] two days ago for back pain, dx: sciatica and given Rx for Flexeril, Dorena. Associated sx: bowel/ urinary incontinence 1x when standing. Pert PMHx: DDD, osteoarthritis in L knee. Aggravating factors: movement. L-SPINE CT shows "1. Negative for fracture. 2. No significant interval change in multilevel advanced degenerative spondylosis and facet joint osteoarthritis with associated central canal and foraminal stenosis as described.". Pt given Decadron, Toradol, Morphine, Norflex in ED. Assessment/Plan: P/E: She had no L spine tenderness, sphincter tone is normal, no foot drop and reflexes normal therefore I have low suspicion for Cauda equina. She has no fever or back pain therefore no suspicion for Discitis, transverse myelitis, epidural abscess or hematoma. Pain is the middle of the left gluteus extending into the lateral and anterior aspect of the knee, down to the ankle. I believe problem may be at the level of L2 to L5. In the ED course an IV access was obtained. Patient was placed in a monitor worker. Patient was started with Toradol, Decadron, Norflex and morphine for the pain. Labs within normal limits except for glucose 126 and CRP 55 possible secondary to the fungal infection. L spine CT impression: 1. Negative for fracture. 2. No significant interval change in multilevel advanced degenerative spondylosis and facet joint osteoarthritis with associated central canal and foraminal stenosis as. described. After medications patient reports relief of pain but she is still describing pain 04/29. Therefore she was given another dose of Morphine. She also has a Chronic fungal infection in the inguinal area. She was started with Nystatin powder. Re-assessment patient unable to get out fro bed secondary to the pain. I discuss my physical exam, findings and test results with Dr. Gonzalez from the hospitalist services and she agrees to admit patient to his services. Patient is hemodynamically stable alert and oriented x 3. - Diagnoses Differential Diagnosis/HQI/PQRI: Positive: Cauda Equina Syndrome, Herniated Disc , Osteoporosis, Strain, Sprain Provider Diagnoses: Acute exacerbation of chronic low back pain, Sciatica of left side - Provider Notifications Discussed Care Of Patient With: Shante Gonzalez - hospitalist Time Discussed With Above Provider: 11:35 Instructed by Provider To: Admit As Inpatient Discharge - Discharge Plan Condition: Stable Disposition: ADMITTED TO [facility] Referrals: Serena Murillo MD [Primary Care Provider] - The documentation as recorded by the [place] steve SooYoung accurately reflects the service I personally performed and the decisions made by me, Raffaele Ariza MD.
[2017-06-06] MEDS: Nystatin TOP POWDER* 15 GM BTL TOPICAL SCH ×2 (15:07→20:36)
[2017-06-06] MEDS: methylPREDNISolone SOD 40 MG* 1 ML VIAL IV SCH ×2 (15:07→20:36)
[2017-06-06] MEDS: Acetaminophen TAB* 325 MG PO PRN (15:12)
--- NOTE | 2017-06-06 15:18 | HP ---
CC: Dr. Murillo HISTORY AND PHYSICAL: DATE OF ADMISSION: 06/06/17 TIME OF EVALUATION: 12:15 p.m. PRIMARY CARE PROVIDER: Dr. Murillo. CHIEF COMPLAINT: "I can't move." HISTORY OF PRESENT ILLNESS: Mrs. Jain is a 57-year-old lady with a past medical history of pulmo nary embolism, uterine bleeding, obstructive sleep apnea, morbid obesity, GERD, hypertension, left b undle-branch block, and asthma who presented to the emergency room with complaints of severe back pa in. She states that she was in her usual of state of health until 05/31/17 when she moved into her new [facility]. She states that she was not lifting anything heavy, but she was bending over to leaf size picker things and put them away. That night, she started to have some low back pain, discomfort and she took arnoldo e Tylenol and initially had some relief. Wednesday, she was able to ambulate with her walker, but the pain was more severe and it continued to progress during the week. On 06/04/17, she presented to [facility] emergency room with severe back pain. She was discharged home on hydrocodone/acetaminophen and c yclobenzaprine. She states the pain responded a little to the pain medications, but it was so sever e to the point that she could not get out of bed without assistance. Her brother has helped her at home but she states that today she was incontinent of stool in her bed. She was aware that she had to go to the bathroom to urinate and defecate, but she states she was unable to get up from bed in [facility] and ended up having a bowel movement in bed, but she was aware that that was happening. The pain is described as 10/10 in intensity radiating to her left buttock, lateral aspect of her lef t leg, and crossing anteriorly to her left knee cap and going down to her big toe associated with ti ngling and numbness. She denies weakness. She states that she can move her leg, but it is painful to do so. She denies fever, chills, nausea, vomiting, constipation, saddle anesthesia. She states that she mattson s chronic pain and is actually trying to schedule an appointment to see the pain specialist, but sta kendall that she never had back pain that was severe like this. PAST MEDICAL HISTORY: 1. Pulmonary embolism. 2. Uterine bleeding. 3. Obstructive sleep apnea. 4. Morbid obesity with a BMI of 63. 5. GERD. 6. Hypertension. 7. Left bundle-branch block. 8. Asthma. PAST SURGICAL HISTORY: 1. Status post hernia repair x3. 2. Status post cholecystectomy. 3. Status post tonsillectomy. 4. Status post . MEDICATIONS: 1. Acetaminophen 650 mg p.o. q.4 hours p.r.n. pain or fever. 2. Albuterol HFA 2 puffs inhale q.4 hours p.r.n. shortness of breath. 3. Flexeril 10 mg p.o. t.i.d. as needed for muscle spasms. 4. Ferrous gluconate 240 mg p.o. daily. 5. Hydrocodone/acetaminophen 5/325 mg 1 tablet p.o. q.8 hours p.r.n. pain. 6. Metoprolol tartrate 12.5 mg p.o. q.12 hours. 7. Nystatin powder to affected areas b.i.d. 8. Ranitidine 300 mg p.o. at bedtime. 9. Warfarin 8 mg p.o. daily. ALLERGIES: No known drug allergies. She had a rash with BUCKWHEAT and headache with DUST MITE EXTR ACT. FAMILY HISTORY: Mother has a history of hypertension and DC. SOCIAL HISTORY: There is no history of tobacco, alcohol, or drug use. Surrogate decision maker is her sister, Nya Mariano, phone number is [phone]. REVIEW OF SYSTEMS: A 14-point review of systems was performed and all the pertinent negative and po sitive findings are in the HPI. PHYSICAL EXAMINATION GENERAL: The patient is a pleasant morbidly obese lady, lying in the stretcher, appears uncomfortab le secondary to pain. VITAL SIGNS: Temperature 98.1, heart rate is 81, respiratory rate is 20, oxygen saturation is 96% o n room air, blood pressure is 124/68. HEENT: Pupils are equal. Moist mucous membranes. CHEST: Breath sounds present bilaterally, decreased but no added sounds. CVS: Normal S1, S2. Regular rate and rhythm. ABDOMEN: Obese, soft. Bowel sounds are present. RECTAL: As per the emergency room provider, he performed a rectal exam and the patient's rectal ton e is preserved and she declines a repeat exam at this time. EXTREMITIES: No edema. SKIN: The patient has a moist erythematous rash on her folds, foul smelling. NEURO: She is alert, oriented x3. Able to move all 4 extremities. Straight leg raising is positiv e, slightly decreased on the left. Her power is preserved but pain limits her movement. She states that sensation around her left hallux is diminished. LABORATORY AND IMAGING DATA: The patient had a CBC that showed a WBC of 7.9, hemoglobin of 13.4, h ematocrit 42, and platelets of 261,000 with 75% neutrophils. ESR is 36. Chemistry: Sodium 136, pot assium 4, chloride of 102, bicarb of 26, BUN of 16, creatinine of 0.6 and glucose of 126. LFTs are normal. CRP is 55. CT of the lumbar spine was negative for fracture. It showed no significant change when compared to prior CT from February 2016 with multilevel advanced degenerative spondylosis and facet joint osteoarthr itis with associated central canal and foraminal stenosis, as described L2-L3 moderate severe disk s pace narrowing, L3-L4 advanced disk space narrowing with severe acquired central canal stenosis, mil d right and moderate left foraminal stenosis, L4-L5 moderate acquired central canal stenosis, modera te right and moderately severe left foraminal stenosis, and L5-S1 mild left foraminal stenosis. ASSESSMENT AND PLAN: Mrs. Jain is a 57-year-old lady with a past medical history of pulmonary em bolism, uterine bleeding, obstructive sleep apnea, morbid obesity, gastroesophageal reflux disease, hypertension, left bundle-branch block, and asthma who presented to the emergency room with complain ts of lower back pain radiating to left buttock and lower extremity, unable to manage her symptoms a t home. 1. Intractable back pain. With the patient's presentation, I suspect she has L4 radiculopathy. She is unable to manage at critical access hospital at this point and she will be admitted for further pain management. She had a good response to IV morphine in the emergency room, we are going to continue that, but I will also add steroids, ketoro lac for a short period of time and continue her muscle relaxant. She will be seen in consultation b y PT and OT. If her symptoms do not improve, an MRI can be pursued, but at this point her presentation is compati ble with L4 radiculopathy and we are going to try medical management. If she develops any further n eurological deficits, Neurosurgery will be consulted. At this point, although she was incontinent o f stool, this does not appear to be related to a neurological deficit. The patient was aware that s he needed to urinate and evacuate, but was unable to make out of bed to the bathroom in time due to pain and difficulty moving. She will be monitored with neurological checks. 2. Pulmonary embolism. We will follow her INR and continue her treatment with warfarin. 3. Gastroesophageal reflux disease. She is already on an H2 jaki and I am going to add a PPI fo r now as she is going to be on steroids. 4. Hypertension. Continue Lopressor. 5. Asthma, is stable. Continue bronchodilators. 6. DVT prophylaxis. The patient has a score of 5 on the DVT Prophylaxis Risk Assessment Guide. We are going to continue her warfarin and she will have SCDs as tolerated. 7. Code status is full. TIME SPENT: Approximately 60 minutes were spent with patient interview, medical records review, phy sical examination to complete this admission, and more than half this time was spent [id number] wi th the patient in coordination of care. [id number]/[facility] #: [id number]
[2017-06-06] MEDS ORDERED: Ketorolac INJ* 15 MG/ML 1 ML VIAL IV PUSH PRN (16:00)
[2017-06-06] MEDS: Warfarin TAB(*) 4 MG PO SCH (17:00)
[2017-06-06] MEDS ORDERED: Warfarin TAB(*) 1 MG PO SCH (17:00)
[2017-06-06] MEDS: Morphine INJ* 2 MG/ML 1 ML SYRINGE (TWO MG - NEW SYRINGE VERSION) IV PRN (19:34)
[2017-06-06] MEDS: HYDROcodone/ACETAMIN 5-325 MG* 1 TAB PO PRN (20:30)
[2017-06-06] MEDS: Metoprolol Tartrate TAB* 25 MG PO SCH (20:30)
[2017-06-06] MEDS: Famotidine TAB* 20 MG PO SCH (20:30)
[2017-06-06] MEDS: Cyclobenzaprine TAB* 10 MG PO PRN (22:34)
[2017-06-06 22:41] LABS: Urine Bacteria Absent (Absent); Urine Bilirubin Negative (Negative); Urine Glucose Negative (Negative); Urine Nitrite Negative (Negative)
[2017-06-07] MEDS: Morphine INJ* 2 MG/ML 1 ML SYRINGE (TWO MG - NEW SYRINGE VERSION) IV PRN ×3 (02:11→18:30)
[2017-06-07] MEDS: methylPREDNISolone SOD 40 MG* 1 ML VIAL IV SCH ×3 (05:45→20:50)
[2017-06-07] MEDS: Omeprazole CAP* 20 MG PO SCH (05:48)
[2017-06-07] MEDS: HYDROcodone/ACETAMIN 5-325 MG* 1 TAB PO PRN (05:48)
[2017-06-07] MEDS: Acetaminophen TAB* 325 MG PO PRN (05:54)
[2017-06-07] MEDS: Metoprolol Tartrate TAB* 25 MG PO SCH ×2 (07:19→20:48)
[2017-06-07] MEDS: Ferrous Gluconate TAB* 324 MG TAB PO SCH (07:19)
[2017-06-07] MEDS: Cyclobenzaprine TAB* 10 MG PO PRN (07:24)
[2017-06-07] MEDS: Nystatin TOP POWDER* 15 GM BTL TOPICAL SCH ×3 (07:43→20:50)
[2017-06-07] MEDS ORDERED: Influenza VAC *QUAD* 2017-18* 0.5 ML SYRINGE IM ONE (09:00)
[2017-06-07] MEDS: Gabapentin CAP(*) 100 MG PO SCH ×3 (11:39→20:49)
--- NOTE | 2017-06-07 11:44 | PN ---
Subjective Date of Service: 06/07/17 Interval History: Patient continues to be in 8/10 pain in her left leg that is aggravated by movement and better at rest. Patient was able to stand with the nursing staff even though it was painful for her. Patient was unable to walk due to the pain. Patient denies and dysuria, frequency, or abdominal pain. Patient denies CP/SOB , N/V. Family History: Unchanged from Admission Social History: Unchanged from Admission Past Medical History: Unchanged from Admission Objective Active Medications: Acetaminophen (Tylenol Tab*) 650 mg PO Q6H PRN PRN Reason: pain/fever Last Admin: 06/07/17 05:54 Dose: 650 mg Hydrocodone Bitart/Acetaminophen ([place] 5-325 Tab*) 1 tab PO Q8H PRN PRN Reason: PAIN Last Admin: 06/07/17 05:48 Dose: 1 tab Albuterol (Ventolin Hfa Inhaler*) 2 puff INH Q4H PRN PRN Reason: SOB/WHEEZING Cyclobenzaprine HCl (Flexeril Tab*) 10 mg PO TID PRN PRN Reason: SPASMS Last Admin: 06/07/17 07:24 Dose: 10 mg Docusate Sodium (Colace Cap*) 200 mg PO DAILY PRN PRN Reason: CONSTIPATION Famotidine (Pepcid Tab*) 40 mg PO BEDTIME [facility] PRN Reason: Protocol Last Admin: 06/06/17 20:30 Dose: 40 mg Ferrous Gluconate (Fergon Tab*) 324 mg PO DAILY [facility] Last Admin: 06/07/17 07:19 Dose: 324 mg Gabapentin (Neurontin Cap(*)) 100 mg PO TID [facility] Methylprednisolone Sodium Succinate (Solu-Medrol 40 Mg) 40 mg IV Q8H [facility] Last Admin: 06/07/17 05:45 Dose: 40 mg Metoprolol Tartrate (Lopressor Tab*) 12.5 mg PO Q12HR [facility] Last Admin: 06/07/17 07:19 Dose: 12.5 mg Morphine Sulfate (Morphine Inj (Syringe)*) 2 mg IV Q4H PRN PRN Reason: PAIN Last Admin: 06/07/17 07:25 Dose: 2 mg Nystatin (Nystatin Top Powder*) 1 applic TOPICAL TID [facility] Last Admin: 06/07/17 07:43 Dose: 1 applic Omeprazole (Prilosec Cap*) 20 mg PO DAILY@0600 [facility] Last Admin: 06/07/17 05:48 Dose: 20 mg Prochlorperazine Edisylate (Compazine Inj*) 5 mg IV Q6H PRN PRN Reason: NAUSEA/VOMITING Senna (Senokot Tab*) 1 tab PO DAILY PRN PRN Reason: CONSTIPATION Warfarin Sodium (Coumadin Tab(*)) 8 mg PO DAILY@1700 [facility] PRN Reason: Protocol Last Admin: 06/06/17 17:00 Dose: 8 mg Vital Signs 06/06/17 06/06/17 06/06/17 12:30 13:00 13:56 Temperature 97.8 F Pulse Rate 85 89 91 Respiratory 16 17 18 Rate Blood Pressure 119/55 126/84 147/80 (mmHg) O2 Sat by Pulse 97 96 97 Oximetry 06/06/17 06/06/17 06/06/17 14:04 15:46 19:08 Temperature 97.8 F 97.3 F 97.6 F Pulse Rate 91 92 96 Respiratory 18 22 20 Rate Blood Pressure 147/80 131/64 127/59 (mmHg) O2 Sat by Pulse 96 97 94 Oximetry 06/06/17 06/06/17 06/06/17 19:34 20:30 20:33 Temperature Pulse Rate Respiratory 18 18 18 Rate Blood Pressure (mmHg) O2 Sat by Pulse Oximetry 06/06/17 06/06/17 06/06/17 22:30 22:34 23:31 Temperature 97.8 F Pulse Rate 90 Respiratory 20 20 18 Rate Blood Pressure 135/68 (mmHg) O2 Sat by Pulse 97 Oximetry 06/07/17 06/07/17 06/07/17 00:34 02:11 03:11 Temperature Pulse Rate Respiratory 17 19 16 Rate Blood Pressure (mmHg) O2 Sat by Pulse Oximetry 06/07/17 06/07/17 06/07/17 03:28 05:48 05:59 Temperature 98.0 F 97.6 F Pulse Rate 96 95 Respiratory 16 17 16 Rate Blood Pressure 143/72 149/79 (mmHg) O2 Sat by Pulse 94 93 Oximetry 06/07/17 06/07/17 07:24 07:25 Temperature Pulse Rate Respiratory 16 18 Rate Blood Pressure (mmHg) O2 Sat by Pulse Oximetry Oxygen Devices in Use Now: Nasal Cannula Appearance: Patient is a 57yo morbidly obese female who appears her stated age and is sitting in the hospital bed in no acute distress. Eyes: No Scleral Icterus, PERRLA Ears/Nose/Mouth/Throat: NL Teeth, Lips, Gums, Clear Oropharnyx, Mucous Membranes Moist Neck: NL Appearance and Movements; NL JVP, Trachea Midline Respiratory: Symmetrical Chest Expansion and Respiratory Effort, Clear to Auscultation Cardiovascular: NL Sounds; No Murmurs; No JVD, RRR, No Edema Abdominal: NL Sounds; No Tenderness; No Distention, No Hepatosplenomegaly Lymphatic: No Cervical Adenopathy Extremities: No Clubbing, Cyanosis, - - 1+ pitting edema in lower extremities symmetrical bilaterally. Skin: No Rash or Ulcers Neurological: Alert and Oriented x 3, - - Strength of Left knee extension and foot dorsiflexion diminished compared to right. Diminished sensation to light touch on left foot on medial aspect. Normal sensation on R foot. Result Diagrams: 06/06/17 08:55 06/06/17 08:55 Additional Lab and Data: 06/06/17 06/06/17 06/06/17 08:55 08:55 15:01 WBC 7.9 RBC 4.94 Hgb 13.4 Hct 42 MCV 85 MCH 27 MCHC 32 RDW 19 H Plt Count 261 MPV 10 Neut % (Auto) 75.0 Lymph % (Auto) 14.6 L [place] % (Auto) 6.2 Eos % (Auto) 3.4 Baso % (Auto) 0.8 Absolute Neuts (auto) 5.9 Absolute Lymphs (auto) 1.1 Absolute Monos (auto) 0.5 Absolute Eos (auto) 0.3 Absolute Basos (auto) 0.1 Absolute Nucleated RBC 0.01 Nucleated RBC % 0.1 ESR 36 H INR (Anticoag Therapy) 2.20 H Sodium 136 Potassium 4.0 Chloride 102 Carbon Dioxide 26 Anion Gap 8 BUN 16 Creatinine 0.61 Est GFR ( Amer) 130.0 Est GFR (Non-Af Amer) 101.1 BUN/Creatinine Ratio 26.2 H Glucose 126 H Calcium 9.4 Total Bilirubin 0.40 AST 11 L ALT 13 Alkaline Phosphatase 56 C-Reactive Protein 55.60 H Total Protein 6.9 Albumin 3.8 Globulin 3.1 Albumin/Globulin Ratio 1.2 Urine Color Urine Appearance Urine pH Ur Specific [place] Urine Protein Urine Ketones Urine Blood Urine Nitrate Urine Bilirubin Urine Urobilinogen Ur Leukocyte Esterase Urine WBC (Auto) Urine RBC (Auto) Urine Bacteria Urine Glucose 06/06/17 22:00 WBC RBC Hgb Hct MCV MCH MCHC RDW Plt Count MPV Neut % (Auto) Lymph % (Auto) [place] % (Auto) Eos % (Auto) Baso % (Auto) Absolute Neuts (auto) Absolute Lymphs (auto) Absolute Monos (auto) Absolute Eos (auto) Absolute Basos (auto) Absolute Nucleated RBC Nucleated RBC % ESR INR (Anticoag Therapy) Sodium Potassium Chloride Carbon Dioxide Anion Gap BUN Creatinine Est GFR ( Amer) Est GFR (Non-Af Amer) BUN/Creatinine Ratio Glucose Calcium Total Bilirubin AST ALT Alkaline Phosphatase C-Reactive Protein Total Protein Albumin Globulin Albumin/Globulin Ratio Urine Color Yellow Urine Appearance Turbid Urine pH 5.0 Ur Specific [place] 1.032 H Urine Protein 1+(30 mg/dl) H Urine Ketones Negative Urine Blood 1+ H Urine Nitrate Negative Urine Bilirubin Negative Urine Urobilinogen Negative Ur Leukocyte Esterase 3+ H Urine WBC (Auto) 3+(>20/hpf) H Urine RBC (Auto) Trace(0-2/hpf) Urine Bacteria Absent Urine Glucose Negative Assess/Plan/Problems-Billing Assessment: Patient is a 57yo female with a PMH significant for PE, GERD, HTN, Asthma and Chronic pain who presents with acute back pain consistent with with L4/L5 radiculopathy. Patient feels somewhat better today and will be evaluated by PT/ OT for functional status and will be discharged home when pain allows her to care for herself adequately. - Patient Problems (1) Lumbar radiculopathy, acute Current Visit: Yes Status: Acute Code(s): M54.16 - RADICULOPATHY, LUMBAR REGION SNOMED Code(s): 357967520 Comment: Patient has pain, weakness, and sensory deficits consistent with a L4 and possibly L5 radiculopathy. Will continue [place], Flexeril, Solu-Medrol and will add on Gabapentin for neuropathic pain. PT/OT will exaluate and will hopefully continue with outpatient PT. Will consult neurosurgery if patient worsens significantly or develops signs of cauda equina syndrome. (2) Full code status Current Visit: No Status: Acute Code(s): Z78.9 - OTHER SPECIFIED HEALTH STATUS SNOMED Code(s): 071141979 (3) Hx of pulmonary embolus Current Visit: No Status: Acute Code(s): Z86.711 - PERSONAL HISTORY OF PULMONARY EMBOLISM SNOMED Code(s): 972110054 Comment: No CP/SOB, swelling or redness in lower extremities. Will continue on home warfarin and SCDs as tolerated. (4) GERD (gastroesophageal reflux disease) Current Visit: No Status: Chronic Code(s): K21.9 - GASTRO-ESOPHAGEAL REFLUX DISEASE WITHOUT ESOPHAGITIS SNOMED Code(s): 409384040 Comment: Continue home ranitidine, started on Omeprazole to prevent ulcer since she was started on steroids. (5) HTN (hypertension) Current Visit: No Status: Chronic Priority: Medium Code(s): I10 - ESSENTIAL (PRIMARY) HYPERTENSION SNOMED Code(s): 60042412 Comment: Normotensive Cont home Lopressor (6) DVT prophylaxis Current Visit: No Status: Acute Priority: Medium Code(s): KFY9638 - SNOMED Code(s): 803902633 Comment: Patient on warfarin and INR is therapeutic. SCDs while in bed. Status and Disposition: Patient admitted inpatient. Will discharge to home when able to care for self.
[2017-06-07] MEDS: Warfarin TAB(*) 4 MG PO SCH (17:07)
[2017-06-07] MEDS ORDERED: Morphine INJ* 4 MG/ML 1 ML CARPUJECT ONE (18:23)
[2017-06-07] MEDS: Famotidine TAB* 20 MG PO SCH (20:45)
[2017-06-08] MEDS: Cyclobenzaprine TAB* 10 MG PO PRN (02:25)
[2017-06-08] MEDS: Morphine INJ* 2 MG/ML 1 ML SYRINGE (TWO MG - NEW SYRINGE VERSION) IV PRN ×4 (03:08→18:30)
[2017-06-08 05:32] LABS: Hematocrit 41 % (35-47); Hemoglobin 13.2 g/dl (12.0-16.0); Mean Corpuscular HGB Conc 32 g/dl (31-36); Mean Corpuscular Hemoglobin 27 pg (27-31); Mean Corpuscular Volume 85 fL (80-97); Mean Platelet Volume 9 um3 (7.4-10.4); Red Blood Count 4.85 10^6/ul (4.0-5.4); Red Cell Distribution Width 19 % (10.5-15); White Blood Count 9.4 10^3/ul (3.5-10.8)
[2017-06-08] MEDS: Omeprazole CAP* 20 MG PO SCH (05:32)
[2017-06-08] MEDS: methylPREDNISolone SOD 40 MG* 1 ML VIAL IV SCH ×3 (05:32→20:26)
[2017-06-08 06:11] LABS: BUN/Creatinine Ratio 32.7 (8-20); C Reactive Protein 19.86 mg/L (< 5.00); Calcium 9.5 mg/dL (8.6-10.3); EGFR African American 146.5 (>60); EGFR Non-African American 113.9 (>60); Potassium 4.3 mmol/L (3.5-5.0)
[2017-06-08] MEDS: Gabapentin CAP(*) 100 MG PO SCH ×3 (08:41→20:27)
[2017-06-08] MEDS: Metoprolol Tartrate TAB* 25 MG PO SCH ×2 (08:41→20:53)
[2017-06-08] MEDS: Ferrous Gluconate TAB* 324 MG TAB PO SCH (08:41)
[2017-06-08] MEDS: Nystatin TOP POWDER* 15 GM BTL TOPICAL SCH ×3 (08:47→20:54)
[2017-06-08] MEDS: Acetaminophen TAB* 325 MG PO PRN (11:07)
--- NOTE | 2017-06-08 12:41 | RAD ---
Indication: Radiculopathy. Back pain. Image sequences: Sagittal T1, STIR, T2, axial T1 and T2-weighted images lumbar spine were obtained. Coronal T2-weighted images were obtained. Correlation is made with the prior CT dated June 06, 2017. The vertebral bodies appear normal in height. There is levoscoliosis centered at L2-L3. No fracture or abnormal signal is noted in the lumbar vertebra. At L5-S1 there is no disc protrusion. Mild facet arthropathy is noted. No central or foraminal stenosis is noted. At L4-L5 there is degenerative disc disease. There is a moderate to large central disc extrusion indenting and compressing the thecal sac and resulting in a moderate to severe spinal stenosis. Bilateral foraminal stenosis due to facet arthropathy is noted. At L3-L4 there is degenerative disc disease with broad-based protrusion. This is asymmetric towards the left and causes left foraminal stenosis. Moderate facet hypertrophy is noted. At L2-L3 spondylitic ridge flattens the thecal sac. No central or foraminal stenosis is identified. At L1-L2 no disc protrusion is noted. No central or foraminal stenosis is noted. At T10-T11 spondylitic ridge with a right paracentral disc protrusion indents the right ventral thecal sac. IMPRESSION: MULTILEVEL DEGENERATIVE DISC DISEASE IS NOTED. THERE IS A MODERATE TO LARGE CENTRAL DISC EXTRUSION AT L4-L5 COMPRESSING THE THECAL SAC AND LIKELY IMPINGING UPON BOTH DESCENDING NERVE ROOTS. THERE IS MODERATE TO SEVERE SPINAL STENOSIS AT THIS LEVEL. MODERATE DEGREE OF FACET HYPERTROPHY IS NOTED. AT L3-L4 SPONDYLITIC RIDGE WITH DEGENERATIVE DISC DISEASE AND BROAD-BASED PROTRUSION. MODERATE DEGREE OF FACET ARTHROPATHY IS NOTED. AT T10-T11 T10-T11 RIGHT PARACENTRAL DISC PROTRUSION INDENTS THE THECAL SAC WITHOUT EVIDENCE OF SPINAL CORD COMPRE
--- NOTE | 2017-06-08 19:06 | PN ---
Subjective Date of Service: 06/08/17 Interval History: Patient complains of worsening numbness in left foot and a decrease in proprioception. Patient states pain is stable. MRI of spine consistent with L4/ L5 impingement and previous CT scan. No saddle anesthesia or loss of bowel or bladder control. Family History: Unchanged from Admission Social History: Unchanged from Admission Past Medical History: Unchanged from Admission Objective Active Medications: Acetaminophen (Tylenol Tab*) 650 mg PO Q6H PRN PRN Reason: pain/fever Last Admin: 06/08/17 11:07 Dose: 650 mg Hydrocodone Bitart/Acetaminophen ([place] 5-325 Tab*) 1 tab PO Q8H PRN PRN Reason: PAIN Last Admin: 06/07/17 05:48 Dose: 1 tab Albuterol (Ventolin Hfa Inhaler*) 2 puff INH Q4H PRN PRN Reason: SOB/WHEEZING Cyclobenzaprine HCl (Flexeril Tab*) 10 mg PO TID PRN PRN Reason: SPASMS Last Admin: 06/08/17 02:25 Dose: 10 mg Docusate Sodium (Colace Cap*) 200 mg PO DAILY PRN PRN Reason: CONSTIPATION Famotidine (Pepcid Tab*) 40 mg PO BEDTIME [facility] PRN Reason: Protocol Last Admin: 06/07/17 20:45 Dose: 40 mg Ferrous Gluconate (Fergon Tab*) 324 mg PO DAILY [facility] Last Admin: 06/08/17 08:41 Dose: 324 mg Gabapentin (Neurontin Cap(*)) 100 mg PO TID [facility] Last Admin: 06/08/17 13:27 Dose: 100 mg Methylprednisolone Sodium Succinate (Solu-Medrol 40 Mg) 40 mg IV Q8H [facility] Last Admin: 06/08/17 13:28 Dose: 40 mg Metoprolol Tartrate (Lopressor Tab*) 12.5 mg PO Q12HR [facility] Last Admin: 06/08/17 08:41 Dose: 12.5 mg Morphine Sulfate (Morphine Inj (Syringe)*) 2 mg IV Q4H PRN PRN Reason: PAIN Last Admin: 06/08/17 18:30 Dose: 2 mg Nystatin (Nystatin Top Powder*) 1 applic TOPICAL TID [facility] Last Admin: 06/08/17 13:38 Dose: 1 applic Omeprazole (Prilosec Cap*) 20 mg PO DAILY@0600 [facility] Last Admin: 06/08/17 05:32 Dose: 20 mg Prochlorperazine Edisylate (Compazine Inj*) 5 mg IV Q6H PRN PRN Reason: NAUSEA/VOMITING Senna (Senokot Tab*) 1 tab PO DAILY PRN PRN Reason: CONSTIPATION Vital Signs 06/08/17 06/08/17 15:36 18:30 Temperature 98.7 F Pulse Rate 95 Respiratory 20 18 Rate Blood Pressure 121/59 (mmHg) O2 Sat by Pulse 94 Oximetry Oxygen Devices in Use Now: None Appearance: Patient is a 57yo obese female who appears stated age sitting comfortably in her bed in [facility]. Eyes: No Scleral Icterus, PERRLA Ears/Nose/Mouth/Throat: NL Teeth, Lips, Gums, Clear Oropharnyx, Mucous Membranes Moist Neck: NL Appearance and Movements; NL JVP, Trachea Midline, No Thyroid Enlargement, Masses Respiratory: Symmetrical Chest Expansion and Respiratory Effort, Clear to Auscultation Cardiovascular: NL Sounds; No Murmurs; No JVD, RRR, No Edema Abdominal: NL Sounds; No Tenderness; No Distention, No Hepatosplenomegaly Lymphatic: No Cervical Adenopathy Extremities: - - 1+ pitting edema symmetrical in B/L lower extremity. Skin: - - Yeasty rash in intertriginous areas of abdomen. Neurological: Alert and Oriented x 3, - - Decreased sensation in left first toe , dorsum of the foot and medial aspect of the leg. Achilles reflex 1+ and equal bilaterally. Patellar reflex diminished on Left side. Result Diagrams: 06/08/17 04:53 06/08/17 04:53 Additional Lab and Data: 06/06/17 06/06/17 06/06/17 08:55 08:55 15:01 WBC 7.9 RBC 4.94 Hgb 13.4 Hct 42 MCV 85 MCH 27 MCHC 32 RDW 19 H Plt Count 261 MPV 10 Neut % (Auto) 75.0 Lymph % (Auto) 14.6 L [place] % (Auto) 6.2 Eos % (Auto) 3.4 Baso % (Auto) 0.8 Absolute Neuts (auto) 5.9 Absolute Lymphs (auto) 1.1 Absolute Monos (auto) 0.5 Absolute Eos (auto) 0.3 Absolute Basos (auto) 0.1 Absolute Nucleated RBC 0.01 Nucleated RBC % 0.1 ESR 36 H INR (Anticoag Therapy) 2.20 H Sodium 136 Potassium 4.0 Chloride 102 Carbon Dioxide 26 Anion Gap 8 BUN 16 Creatinine 0.61 Est GFR ( Amer) 130.0 Est GFR (Non-Af Amer) 101.1 BUN/Creatinine Ratio 26.2 H Glucose 126 H Calcium 9.4 Total Bilirubin 0.40 AST 11 L ALT 13 Alkaline Phosphatase 56 C-Reactive Protein 55.60 H Total Protein 6.9 Albumin 3.8 Globulin 3.1 Albumin/Globulin Ratio 1.2 Urine Color Urine Appearance Urine pH Ur Specific [place] Urine Protein Urine Ketones Urine Blood Urine Nitrate Urine Bilirubin Urine Urobilinogen Ur Leukocyte Esterase Urine WBC (Auto) Urine RBC (Auto) Urine Bacteria Urine Glucose 06/06/17 22:00 WBC RBC Hgb Hct MCV MCH MCHC RDW Plt Count MPV Neut % (Auto) Lymph % (Auto) [place] % (Auto) Eos % (Auto) Baso % (Auto) Absolute Neuts (auto) Absolute Lymphs (auto) Absolute Monos (auto) Absolute Eos (auto) Absolute Basos (auto) Absolute Nucleated RBC Nucleated RBC % ESR INR (Anticoag Therapy) Sodium Potassium Chloride Carbon Dioxide Anion Gap BUN Creatinine Est GFR ( Amer) Est GFR (Non-Af Amer) BUN/Creatinine Ratio Glucose Calcium Total Bilirubin AST ALT Alkaline Phosphatase C-Reactive Protein Total Protein Albumin Globulin Albumin/Globulin Ratio Urine Color Yellow Urine Appearance Turbid Urine pH 5.0 Ur Specific [place] 1.032 H Urine Protein 1+(30 mg/dl) H Urine Ketones Negative Urine Blood 1+ H Urine Nitrate Negative Urine Bilirubin Negative Urine Urobilinogen Negative Ur Leukocyte Esterase 3+ H Urine WBC (Auto) 3+(>20/hpf) H Urine RBC (Auto) Trace(0-2/hpf) Urine Bacteria Absent Urine Glucose Negative 06/06/17 06/06/17 06/06/17 08:55 08:55 15:01 WBC 7.9 RBC 4.94 Hgb 13.4 Hct 42 MCV 85 MCH 27 MCHC 32 RDW 19 H Plt Count 261 MPV 10 Neut % (Auto) 75.0 Lymph % (Auto) 14.6 L [place] % (Auto) 6.2 Eos % (Auto) 3.4 Baso % (Auto) 0.8 Absolute Neuts (auto) 5.9 Absolute Lymphs (auto) 1.1 Absolute Monos (auto) 0.5 Absolute Eos (auto) 0.3 Absolute Basos (auto) 0.1 Absolute Nucleated RBC 0.01 Nucleated RBC % 0.1 ESR 36 H INR (Anticoag Therapy) 2.20 H Sodium 136 Potassium 4.0 Chloride 102 Carbon Dioxide 26 Anion Gap 8 BUN 16 Creatinine 0.61 Est GFR ( Amer) 130.0 Est GFR (Non-Af Amer) 101.1 BUN/Creatinine Ratio 26.2 H Glucose 126 H Calcium 9.4 Total Bilirubin 0.40 AST 11 L ALT 13 Alkaline Phosphatase 56 C-Reactive Protein 55.60 H Total Protein 6.9 Albumin 3.8 Globulin 3.1 Albumin/Globulin Ratio 1.2 Urine Color Urine Appearance Urine pH Ur Specific [place] Urine Protein Urine Ketones Urine Blood Urine Nitrate Urine Bilirubin Urine Urobilinogen Ur Leukocyte Esterase Urine WBC (Auto) Urine RBC (Auto) Urine Bacteria Urine Glucose 06/06/17 06/08/17 06/08/17 22:00 04:53 04:53 WBC 9.4 RBC 4.85 Hgb 13.2 Hct 41 MCV 85 MCH 27 MCHC 32 RDW 19 H Plt Count 300 MPV 9 Neut % (Auto) 85.4 H Lymph % (Auto) 8.7 L [place] % (Auto) 5.8 Eos % (Auto) 0 Baso % (Auto) 0.1 Absolute Neuts (auto) 8.0 H Absolute Lymphs (auto) 0.8 L Absolute Monos (auto) 0.5 Absolute Eos (auto) 0 Absolute Basos (auto) 0 Absolute Nucleated RBC 0 Nucleated RBC % 0 ESR INR (Anticoag Therapy) Sodium 137 Potassium 4.3 Chloride 101 Carbon Dioxide 29 Anion Gap 7 BUN 18 Creatinine 0.55 Est GFR ( Amer) 146.5 Est GFR (Non-Af Amer) 113.9 BUN/Creatinine Ratio 32.7 H Glucose 173 H Calcium 9.5 Total Bilirubin AST ALT Alkaline Phosphatase C-Reactive Protein 19.86 H Total Protein Albumin Globulin Albumin/Globulin Ratio Urine Color Yellow Urine Appearance Turbid Urine pH 5.0 Ur Specific [place] 1.032 H Urine Protein 1+(30 mg/dl) H Urine Ketones Negative Urine Blood 1+ H Urine Nitrate Negative Urine Bilirubin Negative Urine Urobilinogen Negative Ur Leukocyte Esterase 3+ H Urine WBC (Auto) 3+(>20/hpf) H Urine RBC (Auto) Trace(0-2/hpf) Urine Bacteria Absent Urine Glucose Negative 06/08/17 04:53 WBC RBC Hgb Hct MCV MCH MCHC RDW Plt Count MPV Neut % (Auto) Lymph % (Auto) [place] % (Auto) Eos % (Auto) Baso % (Auto) Absolute Neuts (auto) Absolute Lymphs (auto) Absolute Monos (auto) Absolute Eos (auto) Absolute Basos (auto) Absolute Nucleated RBC Nucleated RBC % ESR INR (Anticoag Therapy) 3.65 H Sodium Potassium Chloride Carbon Dioxide Anion Gap BUN Creatinine Est GFR ( Amer) Est GFR (Non-Af Amer) BUN/Creatinine Ratio Glucose Calcium Total Bilirubin AST ALT Alkaline Phosphatase C-Reactive Protein Total Protein Albumin Globulin Albumin/Globulin Ratio Urine Color Urine Appearance Urine pH Ur Specific [place] Urine Protein Urine Ketones Urine Blood Urine Nitrate Urine Bilirubin Urine Urobilinogen Ur Leukocyte Esterase Urine WBC (Auto) Urine RBC (Auto) Urine Bacteria Urine Glucose Assess/Plan/Problems-Billing Assessment: Patient is a 57yo female with a PMH significant for PE, GERD, HTN, Asthma and Chronic pain who presents with acute back pain consistent with with L4/L5 radiculopathy. Patient feels somewhat better today and will be evaluated by PT/ OT for functional status. Neurosurgery consulted for possible surgical treatment. - Patient Problems (1) Lumbar radiculopathy, acute Current Visit: Yes Status: Acute Code(s): M54.16 - RADICULOPATHY, LUMBAR REGION SNOMED Code(s): 839983883 Comment: Patient has pain, weakness, and sensory deficits consistent with a L4 and possibly L5 radiculopathy numbness increased overnight. Will continue [place], Flexeril, Solu-Medrol and will add on Gabapentin for neuropathic pain. MRI ordered that is consistent with exam and CT, Neurosurgery consulted for possible intervention. No signs of cauda equina syndrome. (2) Full code status Current Visit: No Status: Acute Code(s): Z78.9 - OTHER SPECIFIED HEALTH STATUS SNOMED Code(s): 381735714 (3) Hx of pulmonary embolus Current Visit: No Status: Acute Code(s): Z86.711 - PERSONAL HISTORY OF PULMONARY EMBOLISM SNOMED Code(s): 912531868 Comment: No CP/SOB, swelling or redness in lower extremities. INR 3.8, warfarin held today, will recheck INR in morning. (4) GERD (gastroesophageal reflux disease) Current Visit: No Status: Chronic Code(s): K21.9 - GASTRO-ESOPHAGEAL REFLUX DISEASE WITHOUT ESOPHAGITIS SNOMED Code(s): 424539487 Comment: Continue home ranitidine, started on Omeprazole to prevent ulcer since she was started on steroids. (5) HTN (hypertension) Current Visit: No Status: Chronic Priority: Medium Code(s): I10 - ESSENTIAL (PRIMARY) HYPERTENSION SNOMED Code(s): 49874932 Comment: Normotensive Cont home Lopressor (6) DVT prophylaxis Current Visit: No Status: Acute Priority: Medium Code(s): BWW3379 - SNOMED Code(s): 084241176 Comment: Patient on warfarin and INR is supratherapeutic. SCDs while in bed. Status and Disposition: Patient admitted inpatient. Will discharge to rehab when able.
[2017-06-08] MEDS: Famotidine TAB* 20 MG PO SCH (20:27)
[2017-06-08] MEDS: HYDROcodone/ACETAMIN 5-325 MG* 1 TAB PO PRN (20:27)
[2017-06-09] MEDS: Cyclobenzaprine TAB* 10 MG PO PRN ×4 (00:56→21:38)
[2017-06-09] MEDS: Morphine INJ* 2 MG/ML 1 ML SYRINGE (TWO MG - NEW SYRINGE VERSION) IV PRN ×3 (04:48→16:09)
[2017-06-09] MEDS: methylPREDNISolone SOD 40 MG* 1 ML VIAL IV SCH ×3 (04:50→20:44)
[2017-06-09] MEDS: Omeprazole CAP* 20 MG PO SCH (04:55)
[2017-06-09 05:47] LABS: Hematocrit 41 % (35-47); Hemoglobin 13.3 g/dl (12.0-16.0); Mean Corpuscular HGB Conc 32 g/dl (31-36); Mean Corpuscular Hemoglobin 27 pg (27-31); Mean Corpuscular Volume 84 fL (80-97); Mean Platelet Volume 9 um3 (7.4-10.4); Red Blood Count 4.93 10^6/ul (4.0-5.4); Red Cell Distribution Width 19 % (10.5-15); White Blood Count 8.1 10^3/ul (3.5-10.8)
[2017-06-09 06:02] LABS: BUN/Creatinine Ratio 49.1 (8-20); Calcium 9.4 mg/dL (8.6-10.3); EGFR African American 152.9 (>60); EGFR Non-African American 118.9 (>60); Potassium 4.2 mmol/L (3.5-5.0)
[2017-06-09] MEDS: Gabapentin CAP(*) 100 MG PO SCH ×3 (07:36→21:38)
[2017-06-09] MEDS: Ferrous Gluconate TAB* 324 MG TAB PO SCH (07:36)
[2017-06-09] MEDS: Metoprolol Tartrate TAB* 25 MG PO SCH ×2 (07:37→21:39)
[2017-06-09] MEDS: Nystatin TOP POWDER* 15 GM BTL TOPICAL SCH ×3 (07:39→21:42)
--- NOTE | 2017-06-09 08:13 | PN ---
Progress Note - Progress Note Date of Service: 06/09/17 SOAP: Subjective: []Asked to see patient with long history of chronic back pain. Acute onset of severe left leg pain Wednesday. Complains of severe pain, left foot numbness and weakness worse with activity. MRI yesterday shows large central disc extrusion at L4-5. Objective: []SLR positive at 30 degrees Moderate dorsiflexor weakness on left Decreased sensation left foot diffusely Assessment: []MRI shows disc extrusion at L4-5 with components to either side Plan: []She is not likely to respond to non surgical therapy given her degree of pain and her morbid obesity.A proposed procedure of lumbar discectomy at L4-5 was explained in detail. The risks of surgery to include bleeding, infection, numbness, weakness were discussed. Will schedule surgery for 06/10.
[2017-06-09] MEDS: HYDROcodone/ACETAMIN 5-325 MG* 1 TAB PO PRN ×2 (12:17→21:39)
--- NOTE | 2017-06-09 13:32 | PN ---
Subjective Date of Service: 06/09/17 Interval History: Patient complains of new burning with urination that began yesterday and is now increasing to be near constant suprapubic pain. Patient denies change in frequency or appearance of urine. Patient is stressed and agitated about surgery tomorrow. Patient denies CP, SOB, N/V, Other abdominal pain, [place], or increase in neurological deficits. Family History: Unchanged from Admission Social History: Unchanged from Admission Past Medical History: Unchanged from Admission Objective Active Medications: Acetaminophen (Tylenol Tab*) 650 mg PO Q6H PRN PRN Reason: pain/fever Last Admin: 06/08/17 11:07 Dose: 650 mg Hydrocodone Bitart/Acetaminophen ([place] 5-325 Tab*) 1 tab PO Q8H PRN PRN Reason: PAIN Last Admin: 06/09/17 12:17 Dose: 1 tab Albuterol (Ventolin Hfa Inhaler*) 2 puff INH Q4H PRN PRN Reason: SOB/WHEEZING Cyclobenzaprine HCl (Flexeril Tab*) 10 mg PO TID PRN PRN Reason: SPASMS Last Admin: 06/09/17 12:17 Dose: 10 mg Docusate Sodium (Colace Cap*) 200 mg PO DAILY PRN PRN Reason: CONSTIPATION Famotidine (Pepcid Tab*) 40 mg PO BEDTIME [facility] PRN Reason: Protocol Last Admin: 06/08/17 20:27 Dose: 40 mg Ferrous Gluconate (Fergon Tab*) 324 mg PO DAILY [facility] Last Admin: 06/09/17 07:36 Dose: 324 mg Gabapentin (Neurontin Cap(*)) 100 mg PO TID [facility] Last Admin: 06/09/17 12:18 Dose: 100 mg Methylprednisolone Sodium Succinate (Solu-Medrol 40 Mg) 40 mg IV Q8H [facility] Last Admin: 06/09/17 12:17 Dose: 40 mg Metoprolol Tartrate (Lopressor Tab*) 12.5 mg PO Q12HR [facility] Last Admin: 06/09/17 07:37 Dose: 12.5 mg Morphine Sulfate (Morphine Inj (Syringe)*) 2 mg IV Q4H PRN PRN Reason: PAIN Last Admin: 06/09/17 08:47 Dose: 2 mg Nystatin (Nystatin Top Powder*) 1 applic TOPICAL TID [facility] Last Admin: 06/09/17 12:53 Dose: 1 applic Omeprazole (Prilosec Cap*) 20 mg PO DAILY@0600 [facility] Last Admin: 06/09/17 04:55 Dose: 20 mg Prochlorperazine Edisylate (Compazine Inj*) 5 mg IV Q6H PRN PRN Reason: NAUSEA/VOMITING Senna (Senokot Tab*) 1 tab PO DAILY PRN PRN Reason: CONSTIPATION Vital Signs 06/08/17 06/08/17 06/08/17 15:36 18:30 19:30 Temperature 98.7 F Pulse Rate 95 Respiratory 20 18 17 Rate Blood Pressure 121/59 (mmHg) O2 Sat by Pulse 94 Oximetry 06/08/17 06/08/17 06/08/17 19:49 20:00 20:27 Temperature 98.0 F Pulse Rate 87 Respiratory 20 18 18 Rate Blood Pressure 130/66 (mmHg) O2 Sat by Pulse 95 Oximetry 06/08/17 06/08/17 06/09/17 22:27 23:15 00:56 Temperature 97.6 F Pulse Rate 84 Respiratory 16 16 17 Rate Blood Pressure 159/81 (mmHg) O2 Sat by Pulse 95 Oximetry 06/09/17 06/09/17 06/09/17 02:56 04:22 04:48 Temperature 97.3 F Pulse Rate 75 Respiratory 17 16 18 Rate Blood Pressure 154/80 (mmHg) O2 Sat by Pulse 92 Oximetry 06/09/17 06/09/17 06/09/17 05:48 07:25 07:36 Temperature 97.8 F Pulse Rate 72 Respiratory 18 17 18 Rate Blood Pressure 149/81 (mmHg) O2 Sat by Pulse 93 Oximetry 06/09/17 06/09/17 06/09/17 08:00 08:47 12:17 Temperature Pulse Rate Respiratory 18 18 18 Rate Blood Pressure (mmHg) O2 Sat by Pulse Oximetry 06/09/17 12:18 Temperature Pulse Rate Respiratory 18 Rate Blood Pressure (mmHg) O2 Sat by Pulse Oximetry Oxygen Devices in Use Now: None Appearance: Patient is a 57yo morbidly obese female who appears stated age who is laying in bed in NAD. Eyes: No Scleral Icterus, PERRLA Ears/Nose/Mouth/Throat: NL Teeth, Lips, Gums, Clear Oropharnyx, Mucous Membranes Moist Neck: NL Appearance and Movements; NL JVP, Trachea Midline Respiratory: Symmetrical Chest Expansion and Respiratory Effort, Clear to Auscultation Cardiovascular: NL Sounds; No Murmurs; No JVD, RRR, - - Trance edema in B/L lower extremities. Abdominal: NL Sounds; No Tenderness; No Distention, No Hepatosplenomegaly, - - Limited by body habitus. Lymphatic: No Cervical Adenopathy Extremities: No Clubbing, Cyanosis Skin: - - Stable rash in intertriginous areas or abdomen. Neurological: Alert and Oriented x 3, - - Decreased sensation in medial edge and dorsum of foot. Decreased strength of foot dorsiflexion. SLR positive on L, Negative on R. Achilles reflex 1+ B/L, patellar reflex 1+ on the left and 2+ on the right. Result Diagrams: 06/09/17 05:24 06/09/17 05:24 Additional Lab and Data: 06/06/17 06/06/17 06/06/17 08:55 08:55 15:01 WBC 7.9 RBC 4.94 Hgb 13.4 Hct 42 MCV 85 MCH 27 MCHC 32 RDW 19 H Plt Count 261 MPV 10 Neut % (Auto) 75.0 Lymph % (Auto) 14.6 L [place] % (Auto) 6.2 Eos % (Auto) 3.4 Baso % (Auto) 0.8 Absolute Neuts (auto) 5.9 Absolute Lymphs (auto) 1.1 Absolute Monos (auto) 0.5 Absolute Eos (auto) 0.3 Absolute Basos (auto) 0.1 Absolute Nucleated RBC 0.01 Nucleated RBC % 0.1 ESR 36 H INR (Anticoag Therapy) 2.20 H Sodium 136 Potassium 4.0 Chloride 102 Carbon Dioxide 26 Anion Gap 8 BUN 16 Creatinine 0.61 Est GFR ( Amer) 130.0 Est GFR (Non-Af Amer) 101.1 BUN/Creatinine Ratio 26.2 H Glucose 126 H Calcium 9.4 Total Bilirubin 0.40 AST 11 L ALT 13 Alkaline Phosphatase 56 C-Reactive Protein 55.60 H Total Protein 6.9 Albumin 3.8 Globulin 3.1 Albumin/Globulin Ratio 1.2 Urine Color Urine Appearance Urine pH Ur Specific [place] Urine Protein Urine Ketones Urine Blood Urine Nitrate Urine Bilirubin Urine Urobilinogen Ur Leukocyte Esterase Urine WBC (Auto) Urine RBC (Auto) Urine Bacteria Urine Glucose 06/06/17 22:00 WBC RBC Hgb Hct MCV MCH MCHC RDW Plt Count MPV Neut % (Auto) Lymph % (Auto) [place] % (Auto) Eos % (Auto) Baso % (Auto) Absolute Neuts (auto) Absolute Lymphs (auto) Absolute Monos (auto) Absolute Eos (auto) Absolute Basos (auto) Absolute Nucleated RBC Nucleated RBC % ESR INR (Anticoag Therapy) Sodium Potassium Chloride Carbon Dioxide Anion Gap BUN Creatinine Est GFR ( Amer) Est GFR (Non-Af Amer) BUN/Creatinine Ratio Glucose Calcium Total Bilirubin AST ALT Alkaline Phosphatase C-Reactive Protein Total Protein Albumin Globulin Albumin/Globulin Ratio Urine Color Yellow Urine Appearance Turbid Urine pH 5.0 Ur Specific [place] 1.032 H Urine Protein 1+(30 mg/dl) H Urine Ketones Negative Urine Blood 1+ H Urine Nitrate Negative Urine Bilirubin Negative Urine Urobilinogen Negative Ur Leukocyte Esterase 3+ H Urine WBC (Auto) 3+(>20/hpf) H Urine RBC (Auto) Trace(0-2/hpf) Urine Bacteria Absent Urine Glucose Negative 06/06/17 06/06/17 06/06/17 08:55 08:55 15:01 WBC 7.9 RBC 4.94 Hgb 13.4 Hct 42 MCV 85 MCH 27 MCHC 32 RDW 19 H Plt Count 261 MPV 10 Neut % (Auto) 75.0 Lymph % (Auto) 14.6 L [place] % (Auto) 6.2 Eos % (Auto) 3.4 Baso % (Auto) 0.8 Absolute Neuts (auto) 5.9 Absolute Lymphs (auto) 1.1 Absolute Monos (auto) 0.5 Absolute Eos (auto) 0.3 Absolute Basos (auto) 0.1 Absolute Nucleated RBC 0.01 Nucleated RBC % 0.1 ESR 36 H INR (Anticoag Therapy) 2.20 H Sodium 136 Potassium 4.0 Chloride 102 Carbon Dioxide 26 Anion Gap 8 BUN 16 Creatinine 0.61 Est GFR ( Amer) 130.0 Est GFR (Non-Af Amer) 101.1 BUN/Creatinine Ratio 26.2 H Glucose 126 H Calcium 9.4 Total Bilirubin 0.40 AST 11 L ALT 13 Alkaline Phosphatase 56 C-Reactive Protein 55.60 H Total Protein 6.9 Albumin 3.8 Globulin 3.1 Albumin/Globulin Ratio 1.2 Urine Color Urine Appearance Urine pH Ur Specific [place] Urine Protein Urine Ketones Urine Blood Urine Nitrate Urine Bilirubin Urine Urobilinogen Ur Leukocyte Esterase Urine WBC (Auto) Urine RBC (Auto) Urine Bacteria Urine Glucose 06/06/17 06/08/17 06/08/17 22:00 04:53 04:53 WBC 9.4 RBC 4.85 Hgb 13.2 Hct 41 MCV 85 MCH 27 MCHC 32 RDW 19 H Plt Count 300 MPV 9 Neut % (Auto) 85.4 H Lymph % (Auto) 8.7 L [place] % (Auto) 5.8 Eos % (Auto) 0 Baso % (Auto) 0.1 Absolute Neuts (auto) 8.0 H Absolute Lymphs (auto) 0.8 L Absolute Monos (auto) 0.5 Absolute Eos (auto) 0 Absolute Basos (auto) 0 Absolute Nucleated RBC 0 Nucleated RBC % 0 ESR INR (Anticoag Therapy) Sodium 137 Potassium 4.3 Chloride 101 Carbon Dioxide 29 Anion Gap 7 BUN 18 Creatinine 0.55 Est GFR ( Amer) 146.5 Est GFR (Non-Af Amer) 113.9 BUN/Creatinine Ratio 32.7 H Glucose 173 H Calcium 9.5 Total Bilirubin AST ALT Alkaline Phosphatase C-Reactive Protein 19.86 H Total Protein Albumin Globulin Albumin/Globulin Ratio Urine Color Yellow Urine Appearance Turbid Urine pH 5.0 Ur Specific [place] 1.032 H Urine Protein 1+(30 mg/dl) H Urine Ketones Negative Urine Blood 1+ H Urine Nitrate Negative Urine Bilirubin Negative Urine Urobilinogen Negative Ur Leukocyte Esterase 3+ H Urine WBC (Auto) 3+(>20/hpf) H Urine RBC (Auto) Trace(0-2/hpf) Urine Bacteria Absent Urine Glucose Negative 06/08/17 04:53 WBC RBC Hgb Hct MCV MCH MCHC RDW Plt Count MPV Neut % (Auto) Lymph % (Auto) [place] % (Auto) Eos % (Auto) Baso % (Auto) Absolute Neuts (auto) Absolute Lymphs (auto) Absolute Monos (auto) Absolute Eos (auto) Absolute Basos (auto) Absolute Nucleated RBC Nucleated RBC % ESR INR (Anticoag Therapy) 3.65 H Sodium Potassium Chloride Carbon Dioxide Anion Gap BUN Creatinine Est GFR ( Amer) Est GFR (Non-Af Amer) BUN/Creatinine Ratio Glucose Calcium Total Bilirubin AST ALT Alkaline Phosphatase C-Reactive Protein Total Protein Albumin Globulin Albumin/Globulin Ratio Urine Color Urine Appearance Urine pH Ur Specific [place] Urine Protein Urine Ketones Urine Blood Urine Nitrate Urine Bilirubin Urine Urobilinogen Ur Leukocyte Esterase Urine WBC (Auto) Urine RBC (Auto) Urine Bacteria Urine Glucose 06/06/17 06/06/17 06/08/17 15:01 22:00 04:53 WBC 9.4 RBC 4.85 Hgb 13.2 Hct 41 MCV 85 MCH 27 MCHC 32 RDW 19 H Plt Count 300 MPV 9 Neut % (Auto) 85.4 H Lymph % (Auto) 8.7 L [place] % (Auto) 5.8 Eos % (Auto) 0 Baso % (Auto) 0.1 Absolute Neuts (auto) 8.0 H Absolute Lymphs (auto) 0.8 L Absolute Monos (auto) 0.5 Absolute Eos (auto) 0 Absolute Basos (auto) 0 Absolute Nucleated RBC 0 Nucleated RBC % 0 INR (Anticoag Therapy) 2.20 H Sodium Potassium Chloride Carbon Dioxide Anion Gap BUN Creatinine Est GFR ( Amer) Est GFR (Non-Af Amer) BUN/Creatinine Ratio Glucose Calcium C-Reactive Protein Urine Color Yellow Urine Appearance Turbid Urine pH 5.0 Ur Specific [place] 1.032 H Urine Protein 1+(30 mg/dl) H Urine Ketones Negative Urine Blood 1+ H Urine Nitrate Negative Urine Bilirubin Negative Urine Urobilinogen Negative Ur Leukocyte Esterase 3+ H Urine WBC (Auto) 3+(>20/hpf) H Urine RBC (Auto) Trace(0-2/hpf) Urine Bacteria Absent Urine Glucose Negative 06/08/17 06/08/17 06/09/17 04:53 04:53 05:24 WBC 8.1 RBC 4.93 Hgb 13.3 Hct 41 MCV 84 MCH 27 MCHC 32 RDW 19 H Plt Count 305 MPV 9 Neut % (Auto) 80.6 Lymph % (Auto) 12.6 L [place] % (Auto) 6.7 Eos % (Auto) 0 Baso % (Auto) 0.1 Absolute Neuts (auto) 6.6 Absolute Lymphs (auto) 1.0 Absolute Monos (auto) 0.5 Absolute Eos (auto) 0 Absolute Basos (auto) 0 Absolute Nucleated RBC 0 Nucleated RBC % 0 INR (Anticoag Therapy) 3.65 H Sodium 137 Potassium 4.3 Chloride 101 Carbon Dioxide 29 Anion Gap 7 BUN 18 Creatinine 0.55 Est GFR ( Amer) 146.5 Est GFR (Non-Af Amer) 113.9 BUN/Creatinine Ratio 32.7 H Glucose 173 H Calcium 9.5 C-Reactive Protein 19.86 H Urine Color Urine Appearance Urine pH Ur Specific [place] Urine Protein Urine Ketones Urine Blood Urine Nitrate Urine Bilirubin Urine Urobilinogen Ur Leukocyte Esterase Urine WBC (Auto) Urine RBC (Auto) Urine Bacteria Urine Glucose 06/09/17 06/09/17 05:24 05:24 WBC RBC Hgb Hct MCV MCH MCHC RDW Plt Count MPV Neut % (Auto) Lymph % (Auto) [place] % (Auto) Eos % (Auto) Baso % (Auto) Absolute Neuts (auto) Absolute Lymphs (auto) Absolute Monos (auto) Absolute Eos (auto) Absolute Basos (auto) Absolute Nucleated RBC Nucleated RBC % INR (Anticoag Therapy) 4.03 H Sodium 136 Potassium 4.2 Chloride 100 L Carbon Dioxide 30 Anion Gap 6 BUN 26 H Creatinine 0.53 Est GFR ( Amer) 152.9 Est GFR (Non-Af Amer) 118.9 BUN/Creatinine Ratio 49.1 H Glucose 138 H Calcium 9.4 C-Reactive Protein Urine Color Urine Appearance Urine pH Ur Specific [place] Urine Protein Urine Ketones Urine Blood Urine Nitrate Urine Bilirubin Urine Urobilinogen Ur Leukocyte Esterase Urine WBC (Auto) Urine RBC (Auto) Urine Bacteria Urine Glucose Assess/Plan/Problems-Billing Assessment: Patient is a 57yo female with a PMH significant for PE, GERD, HTN, Asthma and Chronic pain who presents with acute back pain consistent with with L4/L5 radiculopathy. Pain stable from yesterday and patient is scheduled for surgery tomorrow. - Patient Problems (1) Lumbar radiculopathy, acute Current Visit: Yes Status: Acute Code(s): M54.16 - RADICULOPATHY, LUMBAR REGION SNOMED Code(s): 915076091 Comment: Patient has pain, weakness, and sensory deficits consistent with a L4 and possibly L5 radiculopathy numbness increased overnight. Will continue [place], Flexeril, Solu-Medrol and will add on Gabapentin for neuropathic pain. Neurosurgery agrees to treat surgically tomorrow. RCRI of 0 indicating .6% chance of cardiac mortality. EKG consistent with previous studies showing LBBB, Chest XR not read, consistent with previous studies. Echocardiogram and stress test from earlier this year shows normal EF and low risk for Ischemia. (2) Hx of pulmonary embolus Current Visit: No Status: Acute Code(s): Z86.711 - PERSONAL HISTORY OF PULMONARY EMBOLISM SNOMED Code(s): 587582250 Comment: No CP/SOB, mild symmetrical edema and no redness or tenderness in lower extremities. INR 4.03, warfarin held today, will recheck INR in morning. (3) GERD (gastroesophageal reflux disease) Current Visit: No Status: Chronic Code(s): K21.9 - GASTRO-ESOPHAGEAL REFLUX DISEASE WITHOUT ESOPHAGITIS SNOMED Code(s): 682885257 Comment: Continue home ranitidine, started on Omeprazole to prevent ulcer since she was started on steroids. (4) HTN (hypertension) Current Visit: No Status: Chronic Priority: Medium Code(s): I10 - ESSENTIAL (PRIMARY) HYPERTENSION SNOMED Code(s): 37802999 Comment: Normotensive Cont home Lopressor through surgery. (5) DVT prophylaxis Current Visit: No Status: Acute Priority: Medium Code(s): YTO9198 - SNOMED Code(s): 911869537 Comment: Patient on warfarin and INR is supratherapeutic. SCDs while in bed. (6) Dysuria Current Visit: Yes Status: Acute Code(s): R30.0 - DYSURIA SNOMED Code(s): 25960803 Comment: UA ordered but uncollected. Will start on Ceftriaxone 1gm daily due to surgery and probable UTI. (7) Full code status Current Visit: No Status: Acute Code(s): Z78.9 - OTHER SPECIFIED HEALTH STATUS SNOMED Code(s): 152166193 Status and Disposition: Patient admitted inpatient. Will undergo surgery and discharge to rehab when able.
[2017-06-09] MEDS: cefTRIAXone VIAL(*) 1,000 MG in NS 0.9% 50 ML* 50 ML IVPB SCH (19:22)
[2017-06-09] MEDS: PROCHLORPERAZINE INJ 5 MG/ML 2 ML VIAL IV PRN (20:53)
[2017-06-09] MEDS: Famotidine TAB* 20 MG PO SCH (21:38)
[2017-06-09] MEDS: Docusate CAP* 100 MG PO PRN (21:50)
[2017-06-10 01:24] LABS: Urine Nitrite N (Negative)
[2017-06-10 01:25] LABS: Urine Bilirubin Negative (Negative); Urine Glucose N (Negative)
[2017-06-10 01:29] LABS: Urine Bacteria Absent (Absent)
[2017-06-10] MEDS: HYDROcodone/ACETAMIN 5-325 MG* 1 TAB PO PRN ×3 (05:37→22:17)
[2017-06-10] MEDS: Omeprazole CAP* 20 MG PO SCH (05:37)
[2017-06-10] MEDS: methylPREDNISolone SOD 40 MG* 1 ML VIAL IV SCH ×3 (05:37→22:17)
[2017-06-10 06:39] LABS: Hematocrit 41 % (35-47); Hemoglobin 13.4 g/dl (12.0-16.0); Mean Corpuscular HGB Conc 32 g/dl (31-36); Mean Corpuscular Hemoglobin 27 pg (27-31); Mean Corpuscular Volume 84 fL (80-97); Mean Platelet Volume 9 um3 (7.4-10.4); Red Blood Count 4.88 10^6/ul (4.0-5.4); Red Cell Distribution Width 18 % (10.5-15); White Blood Count 6.8 10^3/ul (3.5-10.8)
[2017-06-10 06:53] LABS: BUN/Creatinine Ratio 43.1 (8-20); Calcium 9.2 mg/dL (8.6-10.3); EGFR African American 137.8 (>60); EGFR Non-African American 107.2 (>60); Potassium 4.5 mmol/L (3.5-5.0)
[2017-06-10] MEDS ORDERED: Thrombin 5,000 UNITS* 1 APPLIC KIT - topical use - TOPICAL ONE (07:29)
[2017-06-10] MEDS ORDERED: Lidocaine 1.5% EPI 1:200,000* 30 ML SDV ONE (07:29)
[2017-06-10] MEDS ORDERED: Bacitracin IV* 50,000 UNITS INJ ONE (07:29)
[2017-06-10] MEDS: Ferrous Gluconate TAB* 324 MG TAB PO SCH (08:03)
[2017-06-10] MEDS: Gabapentin CAP(*) 100 MG PO SCH ×3 (08:03→22:16)
[2017-06-10] MEDS: Metoprolol Tartrate TAB* 25 MG PO SCH ×2 (08:04→22:16)
[2017-06-10] MEDS: Nystatin TOP POWDER* 15 GM BTL TOPICAL SCH ×3 (08:07→22:16)
[2017-06-10] MEDS: Cyclobenzaprine TAB* 10 MG PO PRN ×2 (08:10→13:10)
[2017-06-10] MEDS ORDERED: Phytonadione Oral Solution* 5 MG/25 ML UDC PO ONE (08:46)
[2017-06-10] MEDS: Morphine INJ* 2 MG/ML 1 ML SYRINGE (TWO MG - NEW SYRINGE VERSION) IV PRN ×2 (11:12→19:24)
--- NOTE | 2017-06-10 17:30 | PN ---
Subjective Date of Service: 06/10/17 Interval History: Pt INR 2.4 from 4.0. Too high for a neurosurgical procedure which need to be postponed to next Wednesday per Dr. Peralta. po vitamin K 2.5mg given. Family History: Unchanged from Admission Social History: Unchanged from Admission Past Medical History: Unchanged from Admission Objective Active Medications: Acetaminophen (Tylenol Tab*) 650 mg PO Q6H PRN PRN Reason: pain/fever Last Admin: 06/08/17 11:07 Dose: 650 mg Hydrocodone Bitart/Acetaminophen ([place] 5-325 Tab*) 1 tab PO Q8H PRN PRN Reason: PAIN Last Admin: 06/10/17 13:09 Dose: 1 tab Albuterol (Ventolin Hfa Inhaler*) 2 puff INH Q4H PRN PRN Reason: SOB/WHEEZING Cyclobenzaprine HCl (Flexeril Tab*) 10 mg PO TID PRN PRN Reason: SPASMS Last Admin: 06/10/17 13:10 Dose: 10 mg Docusate Sodium (Colace Cap*) 200 mg PO DAILY PRN PRN Reason: CONSTIPATION Last Admin: 06/09/17 21:50 Dose: 200 mg Famotidine (Pepcid Tab*) 40 mg PO BEDTIME [facility] PRN Reason: Protocol Last Admin: 06/09/17 21:38 Dose: 40 mg Ferrous Gluconate (Fergon Tab*) 324 mg PO DAILY [facility] Last Admin: 06/10/17 08:03 Dose: 324 mg Gabapentin (Neurontin Cap(*)) 100 mg PO TID [facility] Last Admin: 06/10/17 14:31 Dose: 100 mg Ceftriaxone Sodium 1,000 mg/ (Sodium Chloride) 50 mls @ 200 mls/hr IVPB Q24H [facility] Last Admin: 06/09/17 19:22 Dose: 200 mls/hr Methylprednisolone Sodium Succinate (Solu-Medrol 40 Mg) 40 mg IV Q8H [facility] Last Admin: 06/10/17 13:11 Dose: 40 mg Metoprolol Tartrate (Lopressor Tab*) 12.5 mg PO Q12HR [facility] Last Admin: 06/10/17 08:04 Dose: 12.5 mg Morphine Sulfate (Morphine Inj (Syringe)*) 2 mg IV Q4H PRN PRN Reason: PAIN Last Admin: 06/10/17 11:12 Dose: 2 mg Nystatin (Nystatin Top Powder*) 1 applic TOPICAL TID [facility] Last Admin: 06/10/17 14:30 Dose: 1 applic Omeprazole (Prilosec Cap*) 20 mg PO DAILY@0600 [facility] Last Admin: 06/10/17 05:37 Dose: 20 mg Prochlorperazine Edisylate (Compazine Inj*) 5 mg IV Q6H PRN PRN Reason: NAUSEA/VOMITING Last Admin: 06/09/17 20:53 Dose: 5 mg Senna (Senokot Tab*) 1 tab PO DAILY PRN PRN Reason: CONSTIPATION Vital Signs 06/09/17 06/09/17 06/09/17 19:43 19:54 21:38 Temperature 98.1 F Pulse Rate 76 Respiratory 21 18 19 Rate Blood Pressure 146/71 (mmHg) O2 Sat by Pulse 95 Oximetry 06/09/17 06/09/17 06/09/17 21:39 23:38 23:39 Temperature 98.4 F Pulse Rate 68 Respiratory 19 17 17 Rate Blood Pressure 168/84 (mmHg) O2 Sat by Pulse 92 Oximetry 06/10/17 06/10/17 06/10/17 04:07 05:37 07:37 Temperature Pulse Rate 66 Respiratory 18 18 20 Rate Blood Pressure 140/82 (mmHg) O2 Sat by Pulse 93 Oximetry 06/10/17 06/10/17 06/10/17 07:47 08:00 08:03 Temperature 97.7 F Pulse Rate 71 Respiratory 14 20 18 Rate Blood Pressure 151/88 (mmHg) O2 Sat by Pulse 92 Oximetry 06/10/17 06/10/17 06/10/17 08:10 10:03 11:12 Temperature Pulse Rate Respiratory 20 18 18 Rate Blood Pressure (mmHg) O2 Sat by Pulse Oximetry 06/10/17 06/10/17 06/10/17 11:52 13:09 13:10 Temperature 98.0 F Pulse Rate 86 Respiratory 18 18 18 Rate Blood Pressure 143/53 (mmHg) O2 Sat by Pulse 96 Oximetry 06/10/17 06/10/17 06/10/17 13:58 14:31 15:09 Temperature 98.8 F Pulse Rate 77 Respiratory 20 18 18 Rate Blood Pressure 111/66 (mmHg) O2 Sat by Pulse 94 Oximetry Oxygen Devices in Use Now: None Appearance: morbidly obese, somewhat anxious Eyes: No Scleral Icterus, PERRLA Ears/Nose/Mouth/Throat: NL Teeth, Lips, Gums, Clear Oropharnyx Neck: NL Appearance and Movements; NL JVP, Trachea Midline Respiratory: Symmetrical Chest Expansion and Respiratory Effort, Clear to Auscultation Cardiovascular: NL Sounds; No Murmurs; No JVD, RRR Abdominal: NL Sounds; No Tenderness; No Distention, - - morbidly obese Extremities: No Edema, No Clubbing, Cyanosis Skin: No Rash or Ulcers Neurological: Alert and Oriented x 3, - - decreased sensation left foot. Result Diagrams: 06/10/17 06:25 06/10/17 06:25 Additional Lab and Data: Laboratory Results - last 24 hr 06/09/17 06/10/17 06/10/17 21:10 06:25 06:25 WBC 6.8 RBC 4.88 Hgb 13.4 Hct 41 MCV 84 MCH 27 MCHC 32 RDW 18 H Plt Count 251 MPV 9 Neut % (Auto) 77.8 Lymph % (Auto) 14.1 L [place] % (Auto) 8.1 Eos % (Auto) 0 Baso % (Auto) 0 Absolute Neuts (auto) 5.3 Absolute Lymphs (auto) 1.0 Absolute Monos (auto) 0.5 Absolute Eos (auto) 0 Absolute Basos (auto) 0 Absolute Nucleated RBC 0.01 Nucleated RBC % 0.1 INR (Anticoag Therapy) 2.48 H Sodium Potassium Chloride Carbon Dioxide Anion Gap BUN Creatinine Est GFR ( Amer) Est GFR (Non-Af Amer) BUN/Creatinine Ratio Glucose Calcium Urine Color Yellow Urine Appearance Clear Urine pH 6 Ur Specific [place] 1.010 Urine Protein N Urine Ketones Negative Urine Blood 1+ H Urine Nitrate N Urine Bilirubin Negative Urine Urobilinogen N Ur Leukocyte Esterase 4+ H Urine WBC (Auto) 3+(>20/hpf) H Urine RBC (Auto) 3+(>10/hpf) H Ur Squamous Epith Cells Present H Urine Bacteria Absent Urine Glucose N Urine Ascorbic Acid N Blood Type Antibody Screen 06/10/17 06/10/17 06:25 06:25 WBC RBC Hgb Hct MCV MCH MCHC RDW Plt Count MPV Neut % (Auto) Lymph % (Auto) [place] % (Auto) Eos % (Auto) Baso % (Auto) Absolute Neuts (auto) Absolute Lymphs (auto) Absolute Monos (auto) Absolute Eos (auto) Absolute Basos (auto) Absolute Nucleated RBC Nucleated RBC % INR (Anticoag Therapy) Sodium 137 Potassium 4.5 Chloride 100 L Carbon Dioxide 32 Anion Gap 5 BUN 25 H Creatinine 0.58 Est GFR ( Amer) 137.8 Est GFR (Non-Af Amer) 107.2 BUN/Creatinine Ratio 43.1 H Glucose 130 H Calcium 9.2 Urine Color Urine Appearance Urine pH Ur Specific [place] Urine Protein Urine Ketones Urine Blood Urine Nitrate Urine Bilirubin Urine Urobilinogen Ur Leukocyte Esterase Urine WBC (Auto) Urine RBC (Auto) Ur Squamous Epith Cells Urine Bacteria Urine Glucose Urine Ascorbic Acid Blood Type A Positive Antibody Screen Negative Assess/Plan/Problems-Billing Assessment: 57yo female PMH significant for PEx2 on coumadin, GERD, HTN, Asthma and Chronic pain who presents with acute back pain consistent with with L4/L5 radiculopathy. INR too high for original surgery date which has been postponed. - Patient Problems (1) Lumbar radiculopathy, acute Current Visit: Yes Status: Acute Code(s): M54.16 - RADICULOPATHY, LUMBAR REGION SNOMED Code(s): 609792543 Comment: Patient has pain, weakness, and sensory deficits consistent with a L4 and possibly L5 radiculopathy. Planned surgery next Friday 06/[address] Peralta after INR normalizes. continue [place], Flexeril, Solu-Medrol increase gabapentin dose (currently 100mg TID) RCRI of 0 indicating .6% chance of cardiac mortality. EKG consistent with previous studies showing LBBB. Echocardiogram and stress test from earlier this year shows normal EF and low risk for Ischemia. (2) Hx of pulmonary embolus Current Visit: No Status: Acute Code(s): Z86.711 - PERSONAL HISTORY OF PULMONARY EMBOLISM SNOMED Code(s): 788692914 Comment: INR 2.4, needs complete reversal for a neurosurgery. vitamin k 2.5mg po given daily, track INR daily. type and screen obtained this AM for possible FFP but next surgical date is additional 5 days out. as outpatient on coumadin with labile INRs (dose currently 6,6,3,3,3,3,3?) 2nd PE was December 2016, previous PE was 10 years prior and was A/c for 3.5 years. Degree of provokation given morbid obesity and relative chronic immobility. (3) Dysuria Current Visit: Yes Status: Acute Code(s): R30.0 - DYSURIA SNOMED Code(s): 88726075 Comment: UA 4+ LE, 3+ wbc. Ceftriaxone 1gm daily (4) Dyslipidemia Current Visit: No Status: Acute Code(s): E78.5 - HYPERLIPIDEMIA, UNSPECIFIED SNOMED Code(s): 063727554 (5) HTN (hypertension) Current Visit: No Status: Chronic Priority: Medium Code(s): I10 - ESSENTIAL (PRIMARY) HYPERTENSION SNOMED Code(s): 97356500 Comment: Normotensive Cont home Lopressor through surgery. Status and Disposition: Medicine inpatient. Surgery planned Friday 06/15 and discharge to rehab (pt prefers in [place] near her nurse daughter). Attending: Ramon Grisgby
[2017-06-10] MEDS: cefTRIAXone VIAL(*) 1,000 MG in NS 0.9% 50 ML* 50 ML IVPB SCH (17:53)
[2017-06-10] MEDS: Famotidine TAB* 20 MG PO SCH (22:16)
[2017-06-10] MEDS: Senna TAB PO PRN (22:17)
[2017-06-11] MEDS: Morphine INJ* 2 MG/ML 1 ML SYRINGE (TWO MG - NEW SYRINGE VERSION) IV PRN ×4 (01:34→20:32)
[2017-06-11] MEDS: Omeprazole CAP* 20 MG PO SCH (05:22)
[2017-06-11] MEDS: methylPREDNISolone SOD 40 MG* 1 ML VIAL IV SCH ×3 (05:22→20:31)
--- NOTE | 2017-06-11 07:51 | PN ---
Progress Note - Progress Note Date of Service: 06/11/17 SOAP: Subjective: []Cont to complain of severe pain Was able to get up without falling over Objective: []Moderate weakness EHL Left Numbness Left foot diffusely Assessment: []INR coming down Plan: []Will arrange for surgery in afternoon 06/14
--- NOTE | 2017-06-11 08:37 | RAD ---
Indication: Preoperative assessment. Back pain. Previous pulmonary embolism. Comparison: March 09, 2017 CT. Technique: Upright AP 1011 hours Report: Obese body habitus limits image quality. Cardiomegaly. Mildly prominent central pulmonary vasculature which remains well defined. Clear lungs and pleural spaces. Negative for pneumothorax. IMPRESSION: Cardiomegaly without compelling evidence for pulmonary edema or other acute intrathoracic process.
[2017-06-11] MEDS: Ferrous Gluconate TAB* 324 MG TAB PO SCH (09:23)
[2017-06-11] MEDS: Gabapentin CAP(*) 100 MG PO SCH ×3 (09:23→20:31)
[2017-06-11] MEDS: Metoprolol Tartrate TAB* 25 MG PO SCH ×2 (09:24→20:31)
[2017-06-11] MEDS: Senna TAB PO PRN (09:32)
[2017-06-11] MEDS: Docusate CAP* 100 MG PO PRN (09:32)
[2017-06-11] MEDS: Cyclobenzaprine TAB* 10 MG PO PRN (09:32)
[2017-06-11] MEDS: Nystatin TOP POWDER* 15 GM BTL TOPICAL SCH ×3 (09:35→20:32)
--- NOTE | 2017-06-11 12:32 | PN ---
Subjective Date of Service: 06/11/17 Interval History: INR down to 1.4. Dr. Peralta planning on Thursday 06/14 around noon for surgery. Pt up to commode and felt more steady but still very numb in feet L>R. Family History: Unchanged from Admission Social History: Unchanged from Admission Past Medical History: Unchanged from Admission Objective Active Medications: Acetaminophen (Tylenol Tab*) 650 mg PO Q6H PRN PRN Reason: pain/fever Last Admin: 06/08/17 11:07 Dose: 650 mg Hydrocodone Bitart/Acetaminophen ([place] 5-325 Tab*) 1 tab PO Q8H PRN PRN Reason: PAIN Last Admin: 06/10/17 22:17 Dose: 1 tab Albuterol (Ventolin Hfa Inhaler*) 2 puff INH Q4H PRN PRN Reason: SOB/WHEEZING Cyclobenzaprine HCl (Flexeril Tab*) 10 mg PO TID PRN PRN Reason: SPASMS Last Admin: 06/11/17 09:32 Dose: 10 mg Docusate Sodium (Colace Cap*) 200 mg PO DAILY PRN PRN Reason: CONSTIPATION Last Admin: 06/11/17 09:32 Dose: 200 mg Famotidine (Pepcid Tab*) 40 mg PO BEDTIME [facility] PRN Reason: Protocol Last Admin: 06/10/17 22:16 Dose: 40 mg Ferrous Gluconate (Fergon Tab*) 324 mg PO DAILY [facility] Last Admin: 06/11/17 09:23 Dose: 324 mg Gabapentin (Neurontin Cap(*)) 100 mg PO TID [facility] Last Admin: 06/11/17 09:23 Dose: 100 mg Ceftriaxone Sodium 1,000 mg/ (Sodium Chloride) 50 mls @ 200 mls/hr IVPB Q24H [facility] Last Admin: 06/10/17 17:53 Dose: 200 mls/hr Methylprednisolone Sodium Succinate (Solu-Medrol 40 Mg) 40 mg IV Q8H [facility] Last Admin: 06/11/17 05:22 Dose: 40 mg Metoprolol Tartrate (Lopressor Tab*) 12.5 mg PO Q12HR [facility] Last Admin: 06/11/17 09:24 Dose: 12.5 mg Morphine Sulfate (Morphine Inj (Syringe)*) 2 mg IV Q4H PRN PRN Reason: PAIN Last Admin: 06/11/17 06:08 Dose: 2 mg Nystatin (Nystatin Top Powder*) 1 applic TOPICAL TID [facility] Last Admin: 06/11/17 09:35 Dose: 1 applic Omeprazole (Prilosec Cap*) 20 mg PO DAILY@0600 [facility] Last Admin: 06/11/17 05:22 Dose: 20 mg Prochlorperazine Edisylate (Compazine Inj*) 5 mg IV Q6H PRN PRN Reason: NAUSEA/VOMITING Last Admin: 06/09/17 20:53 Dose: 5 mg Senna (Senokot Tab*) 1 tab PO DAILY PRN PRN Reason: CONSTIPATION Last Admin: 06/11/17 09:32 Dose: 1 tab Vital Signs 06/10/17 06/10/17 06/10/17 13:09 13:10 13:58 Temperature 98.8 F Pulse Rate 77 Respiratory 18 18 20 Rate Blood Pressure 111/66 (mmHg) O2 Sat by Pulse 94 Oximetry 06/10/17 06/10/17 06/10/17 14:31 15:09 19:24 Temperature 97.9 F Pulse Rate 82 Respiratory 18 18 18 Rate Blood Pressure 131/74 (mmHg) O2 Sat by Pulse 95 Oximetry 06/10/17 06/10/17 06/10/17 20:00 20:24 22:16 Temperature Pulse Rate Respiratory 20 18 18 Rate Blood Pressure (mmHg) O2 Sat by Pulse Oximetry 06/10/17 06/10/17 06/11/17 22:17 23:22 00:16 Temperature 97.9 F Pulse Rate 74 Respiratory 18 18 20 Rate Blood Pressure 154/76 (mmHg) O2 Sat by Pulse 96 Oximetry 06/11/17 06/11/17 06/11/17 00:17 01:34 02:34 Temperature Pulse Rate Respiratory 20 18 20 Rate Blood Pressure (mmHg) O2 Sat by Pulse Oximetry 06/11/17 06/11/17 06/11/17 03:39 06:08 07:08 Temperature 98.1 F Pulse Rate 74 Respiratory 20 18 18 Rate Blood Pressure 132/75 (mmHg) O2 Sat by Pulse 96 Oximetry 06/11/17 06/11/17 06/11/17 08:00 09:23 09:32 Temperature Pulse Rate Respiratory 18 20 18 Rate Blood Pressure (mmHg) O2 Sat by Pulse Oximetry 06/11/17 06/11/1717 10:48 11:05 11:06 Temperature 98.7 F Pulse Rate 72 Respiratory 16 20 20 Rate Blood Pressure 149/76 (mmHg) O2 Sat by Pulse 95 Oximetry Oxygen Devices in Use Now: None Appearance: no acute distress, appears less anxious Ears/Nose/Mouth/Throat: NL Teeth, Lips, Gums, Mucous Membranes Moist Neck: NL Appearance and Movements; NL JVP, Trachea Midline Respiratory: Symmetrical Chest Expansion and Respiratory Effort, Clear to Auscultation Cardiovascular: NL Sounds; No Murmurs; No JVD, RRR Abdominal: NL Sounds; No Tenderness; No Distention, - - morbidly obese Neurological: Alert and Oriented x 3, - - numbness in left toes and dorsum. 3+/ 5 b/l legs (lower back and knee pain limiting) Result Diagrams: 06/10/17 06:25 06/10/17 06:25 Additional Lab and Data: Laboratory Results - last 24 hr 06/11/17 05:37 INR (Anticoag Therapy) 1.40 H Microbiology and Other Data: Microbiology 06/09/17 21:10 Urine Culture - Preliminary Urine Escherichia Coli Assess/Plan/Problems-Billing Assessment: 57yo female PMH significant for PEx2 on coumadin, GERD, HTN, Asthma and Chronic pain who presents with acute back pain and left foot numbness consistent with with L4/L5 radiculopathy. INR too high for original surgery date which has been postponed until 06/14 ~noon. - Patient Problems (1) Lumbar radiculopathy, acute Current Visit: Yes Status: Acute Code(s): M54.16 - RADICULOPATHY, LUMBAR REGION SNOMED Code(s): 975575158 Comment: Patient has pain, weakness, and sensory deficits consistent with a L4-5 radiculopathy. Planned surgery next Friday 06/[address] Peralta after INR normalizes. continue [place], Flexeril, Solu-Medrol increase gabapentin dose (currently 100mg TID) RCRI of 0 indicating .6% chance of cardiac mortality. EKG consistent with previous studies showing LBBB. Echocardiogram and stress test from earlier this year shows normal EF and low risk for Ischemia. Planned to acute rehab likely [facility] after OR (2) Hx of pulmonary embolus Current Visit: No Status: Acute Code(s): Z86.711 - PERSONAL HISTORY OF PULMONARY EMBOLISM SNOMED Code(s): 893247648 Comment: INR 2.4-> 1.4, needs complete reversal for a neurosurgery. vitamin k 2.5mg po given 06/10. track INR daily. as outpatient on coumadin with labile INRs (dose currently 6,6,3,3,3,3,3?) 2nd PE was December 2016, previous PE was 10 years prior and was A/c for 3.5 years. Degree of provokation given morbid obesity and relative chronic immobility. (3) Dysuria Current Visit: Yes Status: Acute Code(s): R30.0 - DYSURIA SNOMED Code(s): 54817905 Comment: UA 4+ LE, 3+ wbc. Ceftriaxone 1gm daily (day 3). UCx with only 50- 75K EColi, will continue abx given upcomping neurosurgery (4) HTN (hypertension) Current Visit: No Status: Chronic Priority: Medium Code(s): I10 - ESSENTIAL (PRIMARY) HYPERTENSION SNOMED Code(s): 63562006 Comment: Normotensive Cont home Lopressor through surgery. Status and Disposition: Medicine inpatient. Surgery planned Thursday 06/14 and discharge to rehab Attending: Ramon Grigsby
[2017-06-11] MEDS: cefTRIAXone VIAL(*) 1,000 MG in NS 0.9% 50 ML* 50 ML IVPB SCH (18:32)
[2017-06-11] MEDS: Famotidine TAB* 20 MG PO SCH (20:31)
[2017-06-12] MEDS: Morphine INJ* 2 MG/ML 1 ML SYRINGE (TWO MG - NEW SYRINGE VERSION) IV PRN ×3 (02:03→14:27)
[2017-06-12] MEDS: methylPREDNISolone SOD 40 MG* 1 ML VIAL IV SCH ×3 (05:09→14:27)
[2017-06-12] MEDS: Omeprazole CAP* 20 MG PO SCH (05:09)
[2017-06-12] MEDS: Ferrous Gluconate TAB* 324 MG TAB PO SCH (09:37)
[2017-06-12] MEDS: HYDROcodone/ACETAMIN 5-325 MG* 1 TAB PO PRN ×3 (09:37→22:54)
[2017-06-12] MEDS: Senna TAB PO PRN (09:37)
[2017-06-12] MEDS: Gabapentin CAP(*) 100 MG PO SCH ×3 (09:37→21:08)
[2017-06-12] MEDS: Docusate CAP* 100 MG PO PRN (09:37)
[2017-06-12] MEDS: Metoprolol Tartrate TAB* 25 MG PO SCH ×2 (09:38→21:09)
[2017-06-12] MEDS: Nystatin TOP POWDER* 15 GM BTL TOPICAL SCH ×3 (09:42→21:24)
[2017-06-12] MEDS: Cyclobenzaprine TAB* 10 MG PO PRN ×2 (13:58→21:10)
[2017-06-12] MEDS ORDERED: HYDROcodone/ACETAM 10-325 MG(NF) 1 TAB PO PRN (15:22)
[2017-06-12] MEDS ORDERED: HYDROcodone/ACETAMIN 5-325 MG* 1 TAB PO PRN (16:12)
--- NOTE | 2017-06-12 16:33 | PN ---
Subjective Date of Service: 06/12/17 Interval History: Lost pIV. Able to walk a bit with walker. Had BM. Getting a few IV pain prns. Family History: Unchanged from Admission Social History: Unchanged from Admission Past Medical History: Unchanged from Admission Objective Active Medications: Acetaminophen (Tylenol Tab*) 650 mg PO Q6H PRN PRN Reason: pain/fever Last Admin: 06/08/17 11:07 Dose: 650 mg Hydrocodone Bitart/Acetaminophen ([place] 5-325 Tab*) 1 tab PO Q6H PRN PRN Reason: PAIN 4-6/10 Hydrocodone Bitart/Acetaminophen ([place] 5-325 Tab*) 2 tab PO Q6H PRN PRN Reason: PAIN 7-10/10 Albuterol (Ventolin Hfa Inhaler*) 2 puff INH Q4H PRN PRN Reason: SOB/WHEEZING Cyclobenzaprine HCl (Flexeril Tab*) 10 mg PO TID PRN PRN Reason: SPASMS Last Admin: 06/12/17 13:58 Dose: 10 mg Docusate Sodium (Colace Cap*) 200 mg PO DAILY PRN PRN Reason: CONSTIPATION Last Admin: 06/12/17 09:37 Dose: 200 mg Famotidine (Pepcid Tab*) 40 mg PO BEDTIME [facility] PRN Reason: Protocol Last Admin: 06/11/17 20:31 Dose: 40 mg Ferrous Gluconate (Fergon Tab*) 324 mg PO DAILY [facility] Last Admin: 06/12/17 09:37 Dose: 324 mg Gabapentin (Neurontin Cap(*)) 200 mg PO TID [facility] Lactated Ringer's (Lactated Ringers 1000 Ml Bag*) 1,000 mls @ 125 mls/hr IV PER RATE [facility] Lidocaine/Sodium Bicarbonate (Buffered Lidocaine 0.9% Syrin*) 0.2 ml INTRADERM ONCE ONE Stop: 06/14/17 06:01 Metoprolol Tartrate (Lopressor Tab*) 12.5 mg PO Q12HR [facility] Last Admin: 06/12/17 09:38 Dose: 12.5 mg Nystatin (Nystatin Top Powder*) 1 applic TOPICAL TID [facility] Last Admin: 06/12/17 14:00 Dose: Not Given Omeprazole (Prilosec Cap*) 20 mg PO DAILY@0600 [facility] Last Admin: 06/12/17 05:09 Dose: 20 mg Prednisone (Deltasone Tab*) 60 mg PO DAILY [facility] Prochlorperazine Edisylate (Compazine Inj*) 5 mg IV Q6H PRN PRN Reason: NAUSEA/VOMITING Last Admin: 06/09/17 20:53 Dose: 5 mg Senna (Senokot Tab*) 1 tab PO DAILY PRN PRN Reason: CONSTIPATION Last Admin: 06/12/17 09:37 Dose: 1 tab Vital Signs 06/11/17 06/11/17 06/11/17 20:00 20:31 20:32 Temperature Pulse Rate Respiratory 16 18 18 Rate Blood Pressure (mmHg) O2 Sat by Pulse Oximetry 06/11/17 06/11/17 06/11/17 21:00 21:32 22:31 Temperature 97.4 F Pulse Rate 68 Respiratory 20 18 16 Rate Blood Pressure 135/69 (mmHg) O2 Sat by Pulse 95 Oximetry 06/11/17 06/12/17 06/12/17 23:41 02:03 03:44 Temperature 97.4 F 97.5 F Pulse Rate 64 79 Respiratory 20 18 14 Rate Blood Pressure 166/62 128/77 (mmHg) O2 Sat by Pulse 95 95 Oximetry 06/12/17 06/12/17 06/12/17 04:03 06:14 08:00 Temperature 97.6 F Pulse Rate 62 Respiratory 20 16 20 Rate Blood Pressure 139/75 (mmHg) O2 Sat by Pulse 97 Oximetry 06/12/17 06/12/17 06/12/17 09:37 11:37 13:58 Temperature Pulse Rate Respiratory 20 18 20 Rate Blood Pressure (mmHg) O2 Sat by Pulse Oximetry 06/12/17 14:27 Temperature Pulse Rate Respiratory 20 Rate Blood Pressure (mmHg) O2 Sat by Pulse Oximetry Oxygen Devices in Use Now: None Appearance: morbid obesity Ears/Nose/Mouth/Throat: NL Teeth, Lips, Gums, Mucous Membranes Moist Neck: NL Appearance and Movements; NL JVP, Trachea Midline Respiratory: Symmetrical Chest Expansion and Respiratory Effort, Clear to Auscultation Cardiovascular: NL Sounds; No Murmurs; No JVD, RRR Abdominal: NL Sounds; No Tenderness; No Distention, No Hepatosplenomegaly Extremities: No Edema Skin: No Rash or Ulcers Neurological: Alert and Oriented x 3, - - decreased sensation left foot. Pain limited strength assessment. CORNELIUS Result Diagrams: 06/10/17 06:25 06/10/17 06:25 Additional Lab and Data: Laboratory Results - last 24 hr 06/11/17 05:37 INR (Anticoag Therapy) 1.40 H Microbiology and Other Data: Microbiology 06/09/17 21:10 Urine Culture - Preliminary Urine Escherichia Coli Assess/Plan/Problems-Billing Assessment: 57yo female PMH significant for PEx2 on coumadin, GERD, HTN, Asthma and Chronic pain who presents with acute back pain and left foot numbness consistent with with L4/L5 radiculopathy. INR too high for original surgery date which has been postponed until 06/14 ~noon. Now wnl. - Patient Problems (1) Lumbar radiculopathy, acute Current Visit: Yes Status: Acute Code(s): M54.16 - RADICULOPATHY, LUMBAR REGION SNOMED Code(s): 464900788 Comment: Patient has pain, weakness, and sensory deficits consistent with a L4-5 radiculopathy. Planned surgery next Friday 06/[address] Peralta. INR has normalized. continue [place] (increase to 1-2tabs), Flexeril change Solu-Medrol 40q6 to prednisone 60mg daily with planned taper gabapentin 200mg TID RCRI of 0 indicating .6% chance of cardiac mortality. EKG consistent with previous studies showing LBBB. Echocardiogram and stress test from earlier this year shows normal EF and low risk for Ischemia. Planned to acute rehab likely [facility] after OR (2) Hx of pulmonary embolus Current Visit: No Status: Acute Code(s): Z86.711 - PERSONAL HISTORY OF PULMONARY EMBOLISM SNOMED Code(s): 511459798 Comment: INR 2.4-> 1.4-> 1.09, NS needed complete reversal for a surgery. s/ p vitamin k 2.5mg po given 06/10. stop INR daily as outpatient on coumadin with labile INRs (dose currently 6,6,3,3,3,3,3?) 2nd PE was December 2016, previous PE was 10 years prior and was A/c for 3.5 years. Degree of provokation given morbid obesity and relative chronic immobility. (3) Dysuria Current Visit: Yes Status: Acute Code(s): R30.0 - DYSURIA SNOMED Code(s): 96674493 Comment: UA 4+ LE, 3+ wbc. s/p Ceftriaxone 1gm x 3 days. UCx with only 50- 75K EColi, have stopped IV and will give 2 more days po ceftin given upcoming surgery. (4) HTN (hypertension) Current Visit: No Status: Chronic Priority: Medium Code(s): I10 - ESSENTIAL (PRIMARY) HYPERTENSION SNOMED Code(s): 81762766 Comment: Normotensive Cont home Lopressor through surgery. Status and Disposition: Medicine inpatient. Surgery planned Thursday 06/14 and discharge to rehab Attending: Ramon Grigsby
[2017-06-12] MEDS: ceFUROXime TAB(*) 250 MG PO SCH (21:08)
[2017-06-12] MEDS: Famotidine TAB* 20 MG PO SCH (21:10)
[2017-06-13] MEDS: PROCHLORPERAZINE INJ 5 MG/ML 2 ML VIAL IV PRN (00:25)
[2017-06-13] MEDS: HYDROcodone/ACETAMIN 5-325 MG* 1 TAB PO PRN ×2 (05:55→13:44)
[2017-06-13] MEDS: Omeprazole CAP* 20 MG PO SCH (05:56)
--- NOTE | 2017-06-13 09:34 | PN ---
Subjective Date of Service: 06/13/17 Interval History: Patient seen and examined at bedside. She denies CP, SOB, fever/chills, other acute complaint. Plan for surgery tomorrow for lumbar radiculopathy. Discussed need for rehab with patient; she would like to talk about options with CM/SW. No other acute concerns. Family History: Unchanged from Admission Social History: Unchanged from Admission Past Medical History: Unchanged from Admission Objective Active Medications: Acetaminophen (Tylenol Tab*) 650 mg PO Q6H PRN PRN Reason: pain/fever Last Admin: 06/08/17 11:07 Dose: 650 mg Hydrocodone Bitart/Acetaminophen ([place] 5-325 Tab*) 1 tab PO Q6H PRN PRN Reason: PAIN 4-6/10 Hydrocodone Bitart/Acetaminophen ([place] 5-325 Tab*) 2 tab PO Q6H PRN PRN Reason: PAIN 7-10/10 Last Admin: 06/13/17 05:55 Dose: 2 tab Albuterol (Ventolin Hfa Inhaler*) 2 puff INH Q4H PRN PRN Reason: SOB/WHEEZING Cefuroxime Axetil (Ceftin Tab(*)) 500 mg PO BID [facility] Stop: 06/13/17 23:59 Last Admin: 06/12/17 21:08 Dose: 500 mg Cyclobenzaprine HCl (Flexeril Tab*) 10 mg PO TID PRN PRN Reason: SPASMS Last Admin: 06/12/17 21:10 Dose: 10 mg Docusate Sodium (Colace Cap*) 200 mg PO DAILY PRN PRN Reason: CONSTIPATION Last Admin: 06/12/17 09:37 Dose: 200 mg Famotidine (Pepcid Tab*) 40 mg PO BEDTIME [facility] PRN Reason: Protocol Last Admin: 06/12/17 21:10 Dose: 40 mg Ferrous Gluconate (Fergon Tab*) 324 mg PO DAILY [facility] Last Admin: 06/12/17 09:37 Dose: 324 mg Gabapentin (Neurontin Cap(*)) 200 mg PO TID [facility] Last Admin: 06/12/17 21:08 Dose: 200 mg Lactated Ringer's (Lactated Ringers 1000 Ml Bag*) 1,000 mls @ 125 mls/hr IV PER RATE [facility] Lidocaine/Sodium Bicarbonate (Buffered Lidocaine 0.9% Syrin*) 0.2 ml INTRADERM ONCE ONE Stop: 06/14/17 06:01 Metoprolol Tartrate (Lopressor Tab*) 12.5 mg PO Q12HR [facility] Last Admin: 06/12/17 21:09 Dose: 12.5 mg Nystatin (Nystatin Top Powder*) 1 applic TOPICAL TID [facility] Last Admin: 06/12/17 21:24 Dose: 1 applic Omeprazole (Prilosec Cap*) 20 mg PO DAILY@0600 [facility] Last Admin: 06/13/17 05:56 Dose: 20 mg Prednisone (Deltasone Tab*) 60 mg PO DAILY [facility] Prochlorperazine Edisylate (Compazine Inj*) 5 mg IV Q6H PRN PRN Reason: NAUSEA/VOMITING Last Admin: 06/13/17 00:25 Dose: 5 mg Senna (Senokot Tab*) 1 tab PO DAILY PRN PRN Reason: CONSTIPATION Last Admin: 06/12/17 09:37 Dose: 1 tab Vital Signs 06/12/17 06/12/17 06/12/17 09:37 11:37 13:58 Temperature Pulse Rate Respiratory 20 18 20 Rate Blood Pressure (mmHg) O2 Sat by Pulse Oximetry 06/12/17 06/12/17 06/12/17 14:27 16:18 16:35 Temperature 97.9 F Pulse Rate 73 Respiratory 20 20 18 Rate Blood Pressure 119/89 (mmHg) O2 Sat by Pulse 97 Oximetry 06/12/17 06/12/17 06/12/17 20:00 21:08 21:10 Temperature Pulse Rate Respiratory 18 18 18 Rate Blood Pressure (mmHg) O2 Sat by Pulse Oximetry 06/12/17 06/12/17 06/12/17 22:54 23:06 23:08 Temperature 97.4 F Pulse Rate 60 Respiratory 18 18 16 Rate Blood Pressure 140/75 (mmHg) O2 Sat by Pulse 94 Oximetry 06/12/17 06/13/17 06/13/17 23:10 02:54 03:36 Temperature 97.2 F Pulse Rate 71 Respiratory 16 16 20 Rate Blood Pressure 123/56 (mmHg) O2 Sat by Pulse 95 Oximetry 06/13/17 05:55 Temperature Pulse Rate Respiratory 18 Rate Blood Pressure (mmHg) O2 Sat by Pulse Oximetry Oxygen Devices in Use Now: None Appearance: Female patient, sitting up in bed, NAD Eyes: No Scleral Icterus Ears/Nose/Mouth/Throat: Clear Oropharnyx, Mucous Membranes Moist Neck: NL Appearance and Movements; NL JVP Respiratory: Symmetrical Chest Expansion and Respiratory Effort, Clear to Auscultation Cardiovascular: NL Sounds; No Murmurs; No JVD, RRR Abdominal: NL Sounds; No Tenderness; No Distention Extremities: No Clubbing, Cyanosis Neurological: Alert and Oriented x 3, - - decreased sensation left foot, no focal deficits. Nutrition: Taking PO's Result Diagrams: 06/10/17 06:25 06/10/17 06:25 Additional Lab and Data: Laboratory Results - last 24 hr 06/11/17 05:37 INR (Anticoag Therapy) 1.40 H Microbiology and Other Data: Microbiology 06/09/17 21:10 Urine Culture - Preliminary Urine Escherichia Coli Assess/Plan/Problems-Billing Assessment: 57yo female PMH significant for PEx2 on coumadin, GERD, HTN, Asthma and Chronic pain who presents with acute back pain and left foot numbness consistent with with L4/L5 radiculopathy. INR too high for original surgery date which has been postponed until 06/14 ~noon. Now wnl. - Patient Problems (1) Lumbar radiculopathy, acute Code(s): M54.16 - RADICULOPATHY, LUMBAR REGION Comment: Patient has pain, weakness, and sensory deficits consistent with a L4-5 radiculopathy. Planned surgery Friday 06/[address] Peralta. INR has normalized. Continue [place], cyclobenzaprine Continue prednisone 60mg daily with planned taper Continue gabapentin 200mg TID Plan for acute rehab following surgery; patient wishes to discuss options with CM. RCRI of 0 indicating 0.6% chance of cardiac mortality. EKG consistent with previous studies showing LBBB. Echocardiogram and stress test from earlier this year shows normal EF and low risk for ischemia. (2) Hx of pulmonary embolus Code(s): Z86.711 - PERSONAL HISTORY OF PULMONARY EMBOLISM Comment: INR has normalized NS needed complete reversal for a surgery As outpatient, was on coumadin with labile INRs 2nd PE was December 2016, previous PE was 10 years prior (anticoagulated for 3.5 years). Degree of provocation, given morbid obesity and relative chronic immobility. (3) Dysuria Code(s): R30.0 - DYSURIA Comment: S/p ceftriaxone 1gm x 3 days. UCx with only 50-75K EColi Plan for 2 additional days of PO cefuroxime, given upcoming surgery. (4) HTN (hypertension) Code(s): I10 - ESSENTIAL (PRIMARY) HYPERTENSION Comment: Normotensive Cont home Lopressor through surgery. (5) Morbid obesity Code(s): E66.01 - MORBID (SEVERE) OBESITY DUE TO EXCESS CALORIES Comment: BMI 63 Patient following with bariatric surgeon in [place]. Surgical plans on hold, per patient, as she will also need a hysterectomy for fibroids. Status and Disposition: Medicine inpatient. Surgery planned Thursday 06/14 and anticipate discharge to rehab
[2017-06-13] MEDS: Gabapentin CAP(*) 100 MG PO SCH ×3 (10:41→20:42)
[2017-06-13] MEDS: ceFUROXime TAB(*) 250 MG PO SCH ×2 (10:41→20:41)
[2017-06-13] MEDS: Senna TAB PO PRN (10:42)
[2017-06-13] MEDS: Docusate CAP* 100 MG PO PRN (10:42)
[2017-06-13] MEDS: Ferrous Gluconate TAB* 324 MG TAB PO SCH (10:42)
[2017-06-13] MEDS: predniSONE TAB* 20 MG PO SCH (10:43)
[2017-06-13] MEDS: Cyclobenzaprine TAB* 10 MG PO PRN (10:43)
[2017-06-13] MEDS: Metoprolol Tartrate TAB* 25 MG PO SCH ×2 (10:44→20:42)
[2017-06-13] MEDS: Nystatin TOP POWDER* 15 GM BTL TOPICAL SCH ×3 (10:45→20:48)
[2017-06-13] MEDS: Acetaminophen TAB* 325 MG PO PRN (14:33)
[2017-06-13] MEDS: Famotidine TAB* 20 MG PO SCH (20:41)
[2017-06-14] MEDS: HYDROcodone/ACETAMIN 5-325 MG* 1 TAB PO PRN ×2 (04:03→18:13)
[2017-06-14] MEDS: Omeprazole CAP* 20 MG PO SCH (05:47)
[2017-06-14] MEDS ORDERED: Buffered Lidocaine 0.9% SYRIN* 5 ML/SYR SYRINGE INTRADERM ONE (06:00)
[2017-06-14] MEDS: Gabapentin CAP(*) 100 MG PO SCH ×3 (08:28→21:06)
[2017-06-14] MEDS: predniSONE TAB* 20 MG PO SCH (08:28)
[2017-06-14] MEDS: Ferrous Gluconate TAB* 324 MG TAB PO SCH (08:29)
[2017-06-14] MEDS: Metoprolol Tartrate TAB* 25 MG PO SCH ×2 (08:29→21:06)
[2017-06-14] MEDS: Acetaminophen TAB* 325 MG PO PRN (08:29)
[2017-06-14] MEDS: Nystatin TOP POWDER* 15 GM BTL TOPICAL SCH ×3 (08:32→21:18)
[2017-06-14] MEDS ORDERED: Lidocaine 1% MPF wEPI 200,000* 30 ML SDV ONE (11:58)
[2017-06-14] MEDS ORDERED: Bacitracin IV* 50,000 UNITS INJ ONE (11:58)
[2017-06-14] MEDS ORDERED: Thrombin 5,000 UNITS* 1 APPLIC KIT - topical use - TOPICAL ONE (11:58)
[2017-06-14] MEDS ORDERED: ceFAZolin 1 GM in Dextrose (*) 1 GM/50 ML BAG IVPB ONE (12:05)
[2017-06-14] MEDS ORDERED: ceFAZolin 2 GM PREMIX (*) 50 ML IVPB ONE (12:05)
[2017-06-14] MEDS ORDERED: fentaNYL* 50 MCG/ML 2 ML VIAL (100 MCG VIAL) ONE ×3 (12:38→16:46)
[2017-06-14] MEDS ORDERED: Atracurium* 10 MG/ML 10 ML VIAL ONE (12:38)
[2017-06-14] MEDS ORDERED: Midazolam* 1 MG/ML 2 ML VIAL (2 MG) ONE (12:38)
[2017-06-14] MEDS ORDERED: Propofol* 10 MG/ML 20 ML BTL IV PUSH ONE (12:38)
[2017-06-14] MEDS ORDERED: Succinylcholine* 20 MG/ML 10 ML VIAL ONE (12:38)
[2017-06-14] MEDS ORDERED: DiMENhydriNATE IV* 50 MG/ML VIAL IV PUSH PRN (14:07)
[2017-06-14] MEDS ORDERED: Ondansetron INJ* 2 MG/ML VIAL IV PRN (14:07)
[2017-06-14] MEDS ORDERED: Ondansetron INJ* 2 MG/ML VIAL ONE (14:45)
--- NOTE | 2017-06-14 15:43 | RAD ---
HISTORY: Intractable back pain COMPARISONS: MRI dated June 08, 2017 VIEWS: 5 , portable intraoperative views of the spine for localization during spinal surgery FINDINGS: Evaluation is limited by technique and body habitus. On the fourth image of 5, a metallic probe is noted opposite of the L4-L5 intervertebral disc space. IMPRESSION: LIMITED PORTABLE VIEWS OF SPINE FOR LOCALIZATION DURING SPINAL SURGERY
[2017-06-14] MEDS ORDERED: HYDROmorphone INJ* 1 MG/ML CARPUJECT SYRINGE ONE (16:46)
[2017-06-14] MEDS: fentaNYL* 50 MCG/ML 2 ML VIAL (100 MCG VIAL) IV PRN ×3 (16:46→17:01)
[2017-06-14] MEDS: HYDROmorphone INJ* 1 MG/ML CARPUJECT SYRINGE IV PRN ×3 (16:47→17:01)
--- NOTE | 2017-06-14 17:46 | PN ---
Subjective Date of Service: 06/14/17 Interval History: Patient seen and examined at bedside in PACU. Pt states that her pain is tolerable postop. Denies numbness or tingling in her legs at present. Denies fever, chills, shortness of breath, chest discomfort, N/V/D. Pt states that she would like to try and go home in the next few days, but understands if she needs to go to short-term rehab. Family History: Unchanged from Admission Social History: Unchanged from Admission Past Medical History: Unchanged from Admission Objective Active Medications: Acetaminophen (Tylenol Tab*) 650 mg PO Q6H PRN Reason: pain/fever Hydrocodone Bitart/Acetaminophen ([place] 5-325 Tab*) 1 tab PO Q4H PRN Reason: PAIN 4-6/10 Hydrocodone Bitart/Acetaminophen ([place] 5-325 Tab*) 2 tab PO Q4H PRN Reason: PAIN 7-10/10 Albuterol (Ventolin Hfa Inhaler*) 2 puff INH Q4H PRN Reason: SOB/WHEEZING Cyclobenzaprine HCl (Flexeril Tab*) 10 mg PO TID PRN Reason: SPASMS Dimenhydrinate (Dramamine Iv*) 12.5 mg IV PUSH ONCE PRN Reason: NAUSEA/VOMITING Stop: 06/14/17 18:07 Docusate Sodium (Colace Cap*) 200 mg PO DAILY PRN Reason: CONSTIPATION Famotidine (Pepcid Tab*) 40 mg PO BEDTIME [facility] Fentanyl Citrate (Fentanyl*) 25 mcg IV Q2M PRN Reason: PAIN - MODERATE Stop: 06/14/17 18:07 Ferrous Gluconate (Fergon Tab*) 324 mg PO DAILY [facility] Gabapentin (Neurontin Cap(*)) 200 mg PO TID [facility] Hydromorphone HCl (Dilaudid Inj*) 0.1 mg IV Q5M PRN Reason: PAIN - SEVERE Stop: 06/14/17 18:07 Lactated Ringer's (Lactated Ringers 1000 Ml Bag*) 1,000 mls @ 125 mls/hr IV PER RATE [facility] Lactated Ringer's (Lactated Ringers 1000 Ml Bag*) 1,000 mls @ 75 mls/hr IV .per rate [facility] Metoprolol Tartrate (Lopressor Tab*) 12.5 mg PO Q12HR [facility] Nystatin (Nystatin Top Powder*) 1 applic TOPICAL TID [facility] Omeprazole (Prilosec Cap*) 20 mg PO DAILY@0600 [facility] Ondansetron HCl (Zofran Inj*) 4 mg IV ONCE PRN Reason: NAUSEA/VOMITING Stop: 06/14/17 18:07 Prednisone (Deltasone Tab*) 60 mg PO DAILY [facility] Prochlorperazine Edisylate (Compazine Inj*) 5 mg IV Q6H PRN Reason: NAUSEA/ VOMITING Senna (Senokot Tab*) 1 tab PO DAILY PRN Reason: CONSTIPATION Vital Signs 06/13/17 06/13/17 06/13/17 20:00 20:42 20:51 Temperature 98.1 F Pulse Rate 76 Respiratory 20 16 20 Rate Blood Pressure 145/73 (mmHg) O2 Sat by Pulse 95 Oximetry 06/13/17 06/13/17 06/13/17 22:42 23:29 23:51 Temperature 97.4 F Pulse Rate 64 Respiratory 18 18 Rate Blood Pressure 140/76 (mmHg) O2 Sat by Pulse 92 Oximetry 06/14/17 06/14/17 06/14/17 08:14 08:28 10:28 Temperature 98.2 F Pulse Rate 87 Respiratory 17 14 18 Rate Blood Pressure 135/66 (mmHg) O2 Sat by Pulse 98 Oximetry 06/14/17 06/14/17 06/14/17 11:25 15:10 15:15 Temperature 98.3 F 97.2 F Pulse Rate 84 87 80 Respiratory 16 12 16 Rate Blood Pressure 111/69 130/78 131/75 (mmHg) O2 Sat by Pulse 94 93 90 Oximetry 06/14/17 06/14/17 06/14/17 15:20 15:25 15:29 Temperature Pulse Rate 79 77 78 Respiratory 15 12 16 Rate Blood Pressure 122/81 126/74 137/79 (mmHg) O2 Sat by Pulse 91 90 90 Oximetry 06/14/17 06/14/17 06/14/17 15:45 16:01 16:15 Temperature 97.3 F Pulse Rate 76 73 77 Respiratory 16 16 16 Rate Blood Pressure 157/81 145/84 152/79 (mmHg) O2 Sat by Pulse 94 95 96 Oximetry 06/14/17 06/14/17 06/14/17 16:30 16:45 16:46 Temperature Pulse Rate 73 76 Respiratory 16 16 16 Rate Blood Pressure 104/92 131/78 (mmHg) O2 Sat by Pulse 97 97 Oximetry 06/14/17 06/14/17 17:00 17:01 Temperature Pulse Rate 77 Respiratory 16 16 Rate Blood Pressure 135/83 (mmHg) O2 Sat by Pulse 95 Oximetry Oxygen Devices in Use Now: None Appearance: NAD, laying on a stretcher Ears/Nose/Mouth/Throat: Mucous Membranes Moist Respiratory: Symmetrical Chest Expansion and Respiratory Effort, Clear to Auscultation Cardiovascular: NL Sounds; No Murmurs; No JVD, RRR Abdominal: NL Sounds; No Tenderness; No Distention Extremities: No Edema Skin: No Rash or Ulcers Neurological: Alert and Oriented x 3, NL Muscle Strength and Tone Lines/Tubes/Other Access: Clean, Dry and Intact Peripheral IV - site benign Nutrition: Taking PO's Result Diagrams: 06/10/17 06:25 06/10/17 06:25 Additional Lab and Data: Microbiology and Other Data: Microbiology 06/09/17 21:10 Urine Culture - Preliminary Urine Escherichia Coli Assess/Plan/Problems-Billing Assessment: Ms. Jain is a 57yo female PMH significant for PEx2 on coumadin, GERD, HTN, Asthma and Chronic pain who presents with acute back pain and left foot numbness consistent with with L4/L5 radiculopathy. INR too high for original surgery date which has been postponed until 06/14. - Patient Problems (1) Lumbar radiculopathy, acute Code(s): M54.16 - RADICULOPATHY, LUMBAR REGION SNOMED Code(s): 485254319 Comment: - Patient has pain, weakness, and sensory deficits consistent with a L4-5 radiculopathy. - Now S/P L4-5 decompressive lami and discectomy left L4-[address] Peralta, POD. - Continue pain management, prednisone 60mg taper, gabapentin 200mg TID - Plan for acute rehab following surgery; patient wishes to discuss options with CM. (2) UTI (urinary tract infection) Comment: - with dysuria - UCx with only 50-75K Ecoli - Received ceftriaxone 1gm IV x3 days and cefuroxime x 2 days (3) HTN (hypertension) Code(s): I10 - ESSENTIAL (PRIMARY) HYPERTENSION SNOMED Code(s): 26670474 Comment: - Mostly Normotensive - Continue Lopressor (4) Hx of pulmonary embolus Code(s): Z86.711 - PERSONAL HISTORY OF PULMONARY EMBOLISM SNOMED Code(s): 396489821 Comment: - INR has normalized - As outpatient, was on coumadin with labile INRs - 2nd PE was December 2016, previous PE was 10 years prior (anticoagulated for 3.5 years). - Degree of provocation, given morbid obesity and relative chronic immobility. - Resume warfarin when ok with Dr. Peralta (5) LUIS ANTONIO (obstructive sleep apnea) Code(s): G47.33 - OBSTRUCTIVE SLEEP APNEA (ADULT) (PEDIATRIC) SNOMED Code(s): 00168511 Comment: - Pending further evaluation with sleep lab (6) GERD (gastroesophageal reflux disease) Code(s): K21.9 - GASTRO-ESOPHAGEAL REFLUX DISEASE WITHOUT ESOPHAGITIS SNOMED Code(s): 679135784 Comment: - Continue omeprazole (7) Morbid obesity Code(s): E66.01 - MORBID (SEVERE) OBESITY DUE TO EXCESS CALORIES SNOMED Code(s ): 512825486 Comment: - BMI 63 - Patient following with bariatric surgeon in [place]. - Surgical plans on hold, per patient, as she will also need a hysterectomy for fibroids. (8) DVT prophylaxis Code(s): HQH9252 - SNOMED Code(s): 082244789 Comment: - SCDs while in bed - Resume Warfarin when ok with Dr. Peralta (9) Full code status Code(s): Z78.9 - OTHER SPECIFIED HEALTH STATUS SNOMED Code(s): 892817598 Status and Disposition: Inpatient. Anticipate discharge to rehab when medically stable vs home.
[2017-06-14] MEDS: Famotidine TAB* 20 MG PO SCH (21:05)
[2017-06-15] MEDS: Omeprazole CAP* 20 MG PO SCH (05:42)
[2017-06-15] MEDS: Metoprolol Tartrate TAB* 25 MG PO SCH ×2 (08:53→21:09)
[2017-06-15] MEDS: Nystatin TOP POWDER* 15 GM BTL TOPICAL SCH ×3 (08:53→21:44)
[2017-06-15] MEDS: predniSONE TAB* 20 MG PO SCH (08:54)
[2017-06-15] MEDS: Ferrous Gluconate TAB* 324 MG TAB PO SCH (08:55)
[2017-06-15] MEDS: Gabapentin CAP(*) 100 MG PO SCH ×3 (08:55→21:08)
[2017-06-15] MEDS: HYDROcodone/ACETAMIN 5-325 MG* 1 TAB PO PRN ×4 (08:55→18:21)
--- NOTE | 2017-06-15 11:55 | PN ---
Progress Note - Progress Note Date of Service: 06/15/17 SOAP: Subjective: [This is a 57 year old female, s/p lumbar discectomy L4-5 bilaterally, POD #1. She reports persistent numbness of the left foot and weakness with standing. She attempted to get up with assistance this morning but was unsuccessful, sat back down on the edge of the bed and then slid down to the floor. She was not injured from the fall. She complains of some low back soreness from the incision , not worsened after the fall and well controlled with current pain management. She denies fever, chills, headache and nausea. ] Objective: [ Vital Signs: Temp Pulse Resp BP Pulse Ox 98.8 F 77 16 138/62 94 06/15/17 11:40 06/15/17 11:40 06/15/17 11:40 06/15/17 11:40 06/15/17 11:40 General: Alert and oriented, laying in bed. Neuro: Persistent left EHL and dorsiflexion weakness and numbness of left foot. Incision: CHELE drain in place and functioning well. CHELE drain output 06/14/17 06/14/17 06/15/17 19:30 22:43 02:00 Output, CHELE #1 35 30 25 06/15/17 05:42 Output, CHELE #1 15 ] Assessment: [Satisfactory post-op course and pain well controlled. Persistent weakness and numbness, patient will likely require rehab. For now, CHELE drain require further monitoring so she will remain inpatient. ] Plan: [1. Continue pain management. 2. PT and OT consults. 3. Persistence of symptoms was discussed with the patient. ]
--- NOTE | 2017-06-15 13:55 | PN ---
Subjective Date of Service: 06/15/17 Interval History: Patient seen and examined at bedside. Denies fever, chills, shortness of breath , chest discomfort, N/V/D. Pt states that when she got up this AM, she didn't have good feeling in her left leg and it gave out and she was assisted to the floor by [facility] staff. Pt is embarrassed by the situation, but understands that she needs to continue to work towards moving to get better. Reports that her pain is controlled at this time. Family History: Unchanged from Admission Social History: Unchanged from Admission Past Medical History: Unchanged from Admission Objective Active Medications: Acetaminophen (Tylenol Tab*) 650 mg PO Q6H PRN Reason: pain/fever Hydrocodone Bitart/Acetaminophen ([place] 5-325 Tab*) 1 tab PO Q4H PRN Reason: PAIN 4-6/10 Hydrocodone Bitart/Acetaminophen ([place] 5-325 Tab*) 2 tab PO Q4H PRN Reason: PAIN 7-10/10 Albuterol (Ventolin Hfa Inhaler*) 2 puff INH Q4H PRN Reason: SOB/WHEEZING Cyclobenzaprine HCl (Flexeril Tab*) 10 mg PO TID PRN Reason: SPASMS Docusate Sodium (Colace Cap*) 200 mg PO DAILY PRN Reason: CONSTIPATION Famotidine (Pepcid Tab*) 40 mg PO BEDTIME [facility] Ferrous Gluconate (Fergon Tab*) 324 mg PO DAILY [facility] Gabapentin (Neurontin Cap(*)) 200 mg PO TID [facility] Lactated Ringer's (Lactated Ringers 1000 Ml Bag*) 1,000 mls @ 125 mls/hr IV PER RATE [facility] Metoprolol Tartrate (Lopressor Tab*) 12.5 mg PO Q12HR [facility] Nystatin (Nystatin Top Powder*) 1 applic TOPICAL TID [facility] Omeprazole (Prilosec Cap*) 20 mg PO DAILY@0600 [facility] Prednisone (Deltasone Tab*) 50 mg PO DAILY [facility] Prochlorperazine Edisylate (Compazine Inj*) 5 mg IV Q6H PRN Reason: NAUSEA/ VOMITING Senna (Senokot Tab*) 1 tab PO DAILY PRN Reason: CONSTIPATION Vital Signs 06/14/17 06/14/17 06/14/17 15:10 15:15 15:20 Temperature 97.2 F Pulse Rate 87 80 79 Respiratory 12 16 15 Rate Blood Pressure 130/78 131/75 122/81 (mmHg) O2 Sat by Pulse 93 90 91 Oximetry 06/14/17 06/14/17 06/14/17 15:25 15:29 15:45 Temperature Pulse Rate 77 78 76 Respiratory 12 16 16 Rate Blood Pressure 126/74 137/79 157/81 (mmHg) O2 Sat by Pulse 90 90 94 Oximetry 06/14/17 06/14/17 06/14/17 16:01 16:15 16:30 Temperature 97.3 F Pulse Rate 73 77 73 Respiratory 16 16 16 Rate Blood Pressure 145/84 152/79 104/92 (mmHg) O2 Sat by Pulse 95 96 97 Oximetry 06/14/17 06/14/17 06/14/17 16:45 16:46 16:47 Temperature Pulse Rate 76 Respiratory 16 16 16 Rate Blood Pressure 131/78 (mmHg) O2 Sat by Pulse 97 Oximetry 06/14/17 06/14/17 06/14/17 16:55 16:56 17:00 Temperature Pulse Rate 77 Respiratory 16 16 16 Rate Blood Pressure 135/83 (mmHg) O2 Sat by Pulse 95 Oximetry 06/14/17 06/14/17 06/14/17 17:01 17:30 17:40 Temperature 98.2 F Pulse Rate 73 Respiratory 16 16 Rate Blood Pressure 147/70 (mmHg) O2 Sat by Pulse 96 95 Oximetry 06/14/17 06/14/17 06/14/17 18:23 19:50 20:00 Temperature 97.8 F 97.8 F Pulse Rate 82 72 Respiratory 20 16 Rate Blood Pressure 127/59 122/61 (mmHg) O2 Sat by Pulse 99 97 Oximetry 06/14/17 06/14/17 06/14/17 20:13 21:06 21:33 Temperature 98.2 F Pulse Rate 70 Respiratory 17 18 16 Rate Blood Pressure 141/80 (mmHg) O2 Sat by Pulse 96 Oximetry 06/14/17 06/14/17 06/15/17 23:06 23:34 00:00 Temperature 97.6 F Pulse Rate 67 Respiratory 17 16 17 Rate Blood Pressure 129/62 (mmHg) O2 Sat by Pulse 95 95 Oximetry 06/15/17 06/15/17 06/15/17 02:00 03:38 07:19 Temperature 98.8 F 97.6 F Pulse Rate 76 78 Respiratory 16 18 18 Rate Blood Pressure 128/67 134/44 (mmHg) O2 Sat by Pulse 99 100 Oximetry 06/15/17 06/15/17 06/15/17 08:00 08:28 08:54 Temperature 97.9 F 99.2 F Pulse Rate 89 84 Respiratory 16 16 16 Rate Blood Pressure 144/71 126/67 (mmHg) O2 Sat by Pulse 95 92 Oximetry 06/15/17 06/15/17 06/15/17 08:55 09:29 09:34 Temperature 98.5 F Pulse Rate 85 Respiratory 160 16 Rate Blood Pressure 132/45 (mmHg) O2 Sat by Pulse 89 95 Oximetry 06/15/17 06/15/17 10:35 11:40 Temperature 98.4 F 98.8 F Pulse Rate 88 77 Respiratory 16 16 Rate Blood Pressure 130/50 138/62 (mmHg) O2 Sat by Pulse 95 94 Oximetry Oxygen Devices in Use Now: None Appearance: NAD, laying in bed Respiratory: Symmetrical Chest Expansion and Respiratory Effort, Clear to Auscultation Cardiovascular: NL Sounds; No Murmurs; No JVD, RRR Abdominal: NL Sounds; No Tenderness; No Distention Neurological: Alert and Oriented x 3 Lines/Tubes/Other Access: Clean, Dry and Intact PICC Line - midline, site benign Nutrition: Taking PO's Result Diagrams: 06/10/17 06:25 06/10/17 06:25 Additional Lab and Data: Microbiology and Other Data: Microbiology 06/09/17 21:10 Urine Culture - Preliminary Urine Escherichia Coli Assess/Plan/Problems-Billing Assessment: Ms. Jain is a 57yo female PMH significant for PEx2 on coumadin, GERD, HTN, Asthma and Chronic pain who presents with acute back pain and left foot numbness consistent with with L4/L5 radiculopathy. INR too high for original surgery date which has been postponed until 06/14. - Patient Problems (1) Lumbar radiculopathy, acute Code(s): M54.16 - RADICULOPATHY, LUMBAR REGION SNOMED Code(s): 597615538 Comment: - Patient presented with pain, weakness, and sensory deficits consistent with a L4-5 radiculopathy. - S/P L4-5 decompressive lami and discectomy left L4-[address] Peralta, POD # 1. - Continue pain management, prednisone taper, gabapentin 200mg TID - Plan for acute rehab following surgery; patient wishes to discuss options with CM. (2) UTI (urinary tract infection) Comment: - with dysuria - UCx with only 50-75K Ecoli - Received ceftriaxone 1gm IV x3 days and cefuroxime x 2 days (3) HTN (hypertension) Code(s): I10 - ESSENTIAL (PRIMARY) HYPERTENSION SNOMED Code(s): 50145139 Comment: - Normotensive - Continue Lopressor (4) Hx of pulmonary embolus Code(s): Z86.711 - PERSONAL HISTORY OF PULMONARY EMBOLISM SNOMED Code(s): 319339682 Comment: - INR has normalized - As outpatient, was on coumadin with labile INRs - 2nd PE was December 2016, previous PE was 10 years prior (anticoagulated for 3.5 years). - Degree of provocation, given morbid obesity and relative chronic immobility. - Resume warfarin when ok with Dr. Peralta (5) LUIS ANTONIO (obstructive sleep apnea) Code(s): G47.33 - OBSTRUCTIVE SLEEP APNEA (ADULT) (PEDIATRIC) SNOMED Code(s): 78658389 Comment: - Pending further evaluation with sleep lab (6) GERD (gastroesophageal reflux disease) Code(s): K21.9 - GASTRO-ESOPHAGEAL REFLUX DISEASE WITHOUT ESOPHAGITIS SNOMED Code(s): 285939583 Comment: - Continue omeprazole (7) Morbid obesity Code(s): E66.01 - MORBID (SEVERE) OBESITY DUE TO EXCESS CALORIES SNOMED Code(s ): 557543522 Comment: - BMI 63 - Patient following with bariatric surgeon in [place]. - Surgical plans on hold, per patient, as she will also need a hysterectomy for fibroids. (8) DVT prophylaxis Code(s): JLO5074 - SNOMED Code(s): 750584831 Comment: - SCDs while in bed - Resume Warfarin when ok with Dr. Peralta (9) Full code status Code(s): Z78.9 - OTHER SPECIFIED HEALTH STATUS SNOMED Code(s): 386540806 Status and Disposition: Inpatient. Anticipate discharge to rehab when medically stable vs home.
[2017-06-15] MEDS: Docusate CAP* 100 MG PO PRN (17:43)
[2017-06-15] MEDS: Famotidine TAB* 20 MG PO SCH (21:08)
[2017-06-16] MEDS: HYDROcodone/ACETAMIN 5-325 MG* 1 TAB PO PRN ×4 (04:07→21:00)
[2017-06-16] MEDS: Omeprazole CAP* 20 MG PO SCH (05:26)
--- NOTE | 2017-06-16 08:11 | PN ---
Subjective Date of Service: 06/16/17 Interval History: Patient seen and examined at bedside. Denies fever, chills, shortness of breath , chest discomfort, N/V/D. Pt states that the feeling in her legs in improving and she is able to move her left leg. Pt continues to be motivated to get moving to the best of her abilities. Family History: Unchanged from Admission Social History: Unchanged from Admission Past Medical History: Unchanged from Admission Objective Active Medications: Acetaminophen (Tylenol Tab*) 650 mg PO Q6H PRN Reason: pain/fever Hydrocodone Bitart/Acetaminophen ([place] 5-325 Tab*) 1 tab PO Q4H PRN Reason: PAIN 4-6/10 Hydrocodone Bitart/Acetaminophen ([place] 5-325 Tab*) 2 tab PO Q4H PRN Reason: PAIN 7-10/10 Albuterol (Ventolin Hfa Inhaler*) 2 puff INH Q4H PRN Reason: SOB/WHEEZING Cyclobenzaprine HCl (Flexeril Tab*) 10 mg PO TID PRN Reason: SPASMS Docusate Sodium (Colace Cap*) 200 mg PO DAILY PRN Reason: CONSTIPATION Famotidine (Pepcid Tab*) 40 mg PO BEDTIME [facility] Reason: Protocol Ferrous Gluconate (Fergon Tab*) 324 mg PO DAILY [facility] Gabapentin (Neurontin Cap(*)) 200 mg PO TID [facility] Metoprolol Tartrate (Lopressor Tab*) 12.5 mg PO Q12HR [facility] Nystatin (Nystatin Top Powder*) 1 applic TOPICAL TID [facility] Omeprazole (Prilosec Cap*) 20 mg PO DAILY@0600 [facility] Prednisone (Deltasone Tab*) 50 mg PO DAILY [facility] Stop: 06/18/17 09:30 Prednisone (Deltasone Tab*) 40 mg PO DAILY [facility] Prochlorperazine Edisylate (Compazine Inj*) 5 mg IV Q6H PRN Reason: NAUSEA/ VOMITING Senna (Senokot Tab*) 1 tab PO DAILY PRN Reason: CONSTIPATION Vital Signs 06/15/17 06/15/17 06/15/17 08:28 08:54 08:55 Temperature 97.9 F 99.2 F Pulse Rate 89 84 Respiratory 16 16 160 Rate Blood Pressure 144/71 126/67 (mmHg) O2 Sat by Pulse 95 92 Oximetry 09/06/15/17 06/15/17 09:29 09:34 10:35 Temperature 98.5 F 98.4 F Pulse Rate 85 88 Respiratory 16 16 Rate Blood Pressure 132/45 130/50 (mmHg) O2 Sat by Pulse 89 95 95 Oximetry 06/15/17 06/15/17 06/15/17 10:55 11:40 13:20 Temperature 98.8 F 98.2 F Pulse Rate 77 85 Respiratory 16 16 16 Rate Blood Pressure 138/62 128/52 (mmHg) O2 Sat by Pulse 94 95 Oximetry 06/15/17 06/15/17 06/15/17 14:06 14:07 15:29 Temperature 98.8 F Pulse Rate 79 Respiratory 16 16 16 Rate Blood Pressure 110/57 (mmHg) O2 Sat by Pulse 95 Oximetry 06/15/17 06/15/17 06/15/17 20:01 20:21 21:08 Temperature 98.7 F Pulse Rate 79 Respiratory 14 16 16 Rate Blood Pressure 125/66 (mmHg) O2 Sat by Pulse 96 Oximetry 06/15/17 06/15/17 06/16/17 23:08 23:52 03:36 Temperature 97.9 F 97.8 F Pulse Rate 69 73 Respiratory 16 18 18 Rate Blood Pressure 140/69 142/73 (mmHg) O2 Sat by Pulse 97 100 Oximetry Oxygen Devices in Use Now: None Appearance: NAD, laying in bed Ears/Nose/Mouth/Throat: Mucous Membranes Moist Respiratory: Symmetrical Chest Expansion and Respiratory Effort, Clear to Auscultation - , diminished Cardiovascular: NL Sounds; No Murmurs; No JVD, RRR Extremities: No Edema Skin: No Rash or Ulcers Neurological: Alert and Oriented x 3, NL Muscle Strength and Tone Lines/Tubes/Other Access: Clean, Dry and Intact PICC Line - midline, site benign Nutrition: Taking PO's Result Diagrams: 06/10/17 06:25 06/10/17 06:25 Additional Lab and Data: Microbiology and Other Data: Microbiology 06/09/17 21:10 Urine Culture - Preliminary Urine Escherichia Coli Assess/Plan/Problems-Billing Assessment: Ms. Jain is a 57yo female PMH significant for PEx2 on coumadin, GERD, HTN, Asthma and Chronic pain who presents with acute back pain and left foot numbness consistent with with L4/L5 radiculopathy. INR too high for original surgery date which has been postponed until 06/14. - Patient Problems (1) Lumbar radiculopathy, acute Code(s): M54.16 - RADICULOPATHY, LUMBAR REGION SNOMED Code(s): 436693909 Comment: - Patient presented with pain, weakness, and sensory deficits consistent with a L4-5 radiculopathy - S/P L4-5 decompressive lami and discectomy L4-[address] Peralta, POD #2 - Continue pain management, prednisone taper, gabapentin 200mg TID - Plan for acute rehab (2) UTI (urinary tract infection) Comment: - with dysuria - UCx with only 50-75K Ecoli - Received ceftriaxone 1gm IV x3 days and cefuroxime x 2 days (3) HTN (hypertension) Code(s): I10 - ESSENTIAL (PRIMARY) HYPERTENSION SNOMED Code(s): 93459973 Comment: - Normotensive - Continue Lopressor (4) Hx of pulmonary embolus Code(s): Z86.711 - PERSONAL HISTORY OF PULMONARY EMBOLISM SNOMED Code(s): 648934958 Comment: - INR has normalized - As outpatient, was on coumadin with labile INRs - 2nd PE was December 2016, previous PE was 10 years prior (anticoagulated for 3.5 years). - Degree of provocation, given morbid obesity and relative chronic immobility. - Resume warfarin today (5) LUIS ANTONIO (obstructive sleep apnea) Code(s): G47.33 - OBSTRUCTIVE SLEEP APNEA (ADULT) (PEDIATRIC) SNOMED Code(s): 12649060 Comment: - Pending further evaluation with sleep lab (6) GERD (gastroesophageal reflux disease) Code(s): K21.9 - GASTRO-ESOPHAGEAL REFLUX DISEASE WITHOUT ESOPHAGITIS SNOMED Code(s): 730973890 Comment: - Continue omeprazole (7) Morbid obesity Code(s): E66.01 - MORBID (SEVERE) OBESITY DUE TO EXCESS CALORIES SNOMED Code(s ): 588497740 Comment: - BMI 63 - Patient following with bariatric surgeon in [place]. - Surgical plans on hold, per patient, as she will also need a hysterectomy for fibroids. (8) DVT prophylaxis Code(s): MMV8757 - SNOMED Code(s): 039963494 Comment: - SCDs while in bed - Resume Warfarin today (9) Full code status Code(s): Z78.9 - OTHER SPECIFIED HEALTH STATUS SNOMED Code(s): 994270623 Status and Disposition: Inpatient. Anticipate discharge to rehab when medically stable, possibly later today.
[2017-06-16] MEDS: Gabapentin CAP(*) 100 MG PO SCH ×3 (08:14→21:54)
[2017-06-16] MEDS: predniSONE TAB* 50 MG PO SCH (08:14)
[2017-06-16] MEDS: Metoprolol Tartrate TAB* 25 MG PO SCH ×2 (08:15→21:54)
[2017-06-16] MEDS: Ferrous Gluconate TAB* 324 MG TAB PO SCH (08:15)
[2017-06-16] MEDS: Nystatin TOP POWDER* 15 GM BTL TOPICAL SCH ×3 (08:20→21:54)
--- NOTE | 2017-06-16 10:00 | PN ---
Progress Note - Progress Note Date of Service: 06/16/17 SOAP: Subjective: [S/p lumbar discectomy L4-5 bilaterally, POD #2. Left lower extremity numbness improving, persistent in foot. Was able to get up to the wheelchair today with lift. Knees did not buckle with standing with assistance. Feeling well this morning, pain well controlled. Denies headache, nausea. Looking forward to rehab.] Objective: [ Vital Signs: Temp Pulse Resp BP Pulse Ox 98.2 F 74 22 122/63 99 06/16/17 07:21 06/16/17 07:21 06/16/17 08:16 06/16/17 07:21 06/16/17 07:21 General: Alert and oriented, sitting up in wheelchair for breakfast. Neuro: Weakness of left dorsiflexion and EHL persists. Numbness of left foot. Incision: CHELE drain removed today. Incision in clean and intact with christiano. No swelling or infection. ] Assessment: [Satisfactory post-operative course. Pain is well controlled with oral pain medications. She will need rehab. ] Plan: [1. Cleared from neurosurgical standpoint for discharge to rehab today. 2. Restart Coumadin today. 3. Continue pain management; recommend [place] 5/325 mg 1-2 tabs PO every 4 hours as needed for pain MDD 8. 4. Continue to taper down off Prednisone. 5. She will follow up with Dr. Peralta in office on 06/23/17.]
[2017-06-16] MEDS ORDERED: Warfarin TAB(*) 4 MG PO ONE (17:00)
[2017-06-16] MEDS: Famotidine TAB* 20 MG PO SCH (21:55)
[2017-06-17] MEDS: HYDROcodone/ACETAMIN 5-325 MG* 1 TAB PO PRN ×2 (01:31→05:30)
[2017-06-17] MEDS: Omeprazole CAP* 20 MG PO SCH (05:31)
--- NOTE | 2017-06-17 08:23 | PN ---
Subjective Date of Service: 06/17/17 Interval History: Patient seen and examined at bedside. Pt states that the movement of her left foot continues to improve. She continues to do her exercises in bed. Denies fever, chills, shortness of breath, chest discomfort, N/V/D. Family History: Unchanged from Admission Social History: Unchanged from Admission Past Medical History: Unchanged from Admission Objective Active Medications: Acetaminophen (Tylenol Tab*) 650 mg PO Q6H PRN Reason: pain/fever Hydrocodone Bitart/Acetaminophen (Morrow 5-325 Tab*) 1 tab PO Q4H PRN Reason: PAIN 4-6/10 Hydrocodone Bitart/Acetaminophen (Morrow 5-325 Tab*) 2 tab PO Q4H PRN Reason: PAIN 7-10/10 Albuterol (Ventolin Hfa Inhaler*) 2 puff INH Q4H PRN Reason: SOB/WHEEZING Cyclobenzaprine HCl (Flexeril Tab*) 10 mg PO TID PRN Reason: SPASMS Docusate Sodium (Colace Cap*) 200 mg PO DAILY PRN Reason: CONSTIPATION Famotidine (Pepcid Tab*) 40 mg PO BEDTIME [facility] Ferrous Gluconate (Fergon Tab*) 324 mg PO DAILY [facility] Gabapentin (Neurontin Cap(*)) 200 mg PO TID [facility] Metoprolol Tartrate (Lopressor Tab*) 12.5 mg PO Q12HR [facility] Nystatin (Nystatin Top Powder*) 1 applic TOPICAL TID [facility] Omeprazole (Prilosec Cap*) 20 mg PO DAILY@0600 [facility] Pharmacy Profile Note (Coumadin Per Pharmacy*) 1 note FOLLOW UP .PER PHARMACY PROTOC [facility] Prednisone (Deltasone Tab*) 50 mg PO DAILY [facility] Stop: 06/18/17 09:30 Prednisone (Deltasone Tab*) 40 mg PO DAILY [facility] Prochlorperazine Edisylate (Compazine Inj*) 5 mg IV Q6H PRN Reason: NAUSEA/ VOMITING Senna (Senokot Tab*) 1 tab PO DAILY PRN Reason: CONSTIPATION Vital Signs 06/16/17 06/16/17 06/16/17 10:14 10:16 11:46 Temperature 98.4 F Pulse Rate 89 Respiratory 20 20 16 Rate Blood Pressure 122/80 (mmHg) O2 Sat by Pulse 91 Oximetry 06/16/17 06/16/17 06/16/17 13:47 15:26 15:43 Temperature 98.0 F Pulse Rate 84 Respiratory 18 16 18 Rate Blood Pressure 122/71 (mmHg) O2 Sat by Pulse 95 Oximetry 06/16/17 06/16/17 06/16/17 15:44 19:23 21:00 Temperature 98.3 F Pulse Rate 102 Respiratory 18 16 18 Rate Blood Pressure 145/75 (mmHg) O2 Sat by Pulse 96 Oximetry 06/16/17 06/16/17 06/17/17 23:49 23:54 01:31 Temperature 98.2 F Pulse Rate 75 Respiratory 16 18 18 Rate Blood Pressure 135/68 (mmHg) O2 Sat by Pulse 94 Oximetry 06/17/17 06/17/17 06/17/17 03:21 03:57 05:30 Temperature 97.5 F Pulse Rate 64 Respiratory 20 18 18 Rate Blood Pressure 129/69 (mmHg) O2 Sat by Pulse 94 Oximetry Oxygen Devices in Use Now: None Appearance: NAD, laying in bed Ears/Nose/Mouth/Throat: Mucous Membranes Moist Respiratory: Symmetrical Chest Expansion and Respiratory Effort, Clear to Auscultation - , diminished Cardiovascular: NL Sounds; No Murmurs; No JVD, RRR Abdominal: NL Sounds; No Tenderness; No Distention Neurological: Alert and Oriented x 3, NL Muscle Strength and Tone Lines/Tubes/Other Access: Clean, Dry and Intact PICC Line - midline, site benign Nutrition: Taking PO's Result Diagrams: 06/10/17 06:25 06/10/17 06:25 Additional Lab and Data: Microbiology and Other Data: Microbiology 06/09/17 21:10 Urine Culture - Preliminary Urine Escherichia Coli Assess/Plan/Problems-Billing Assessment: Ms. Jain is a 57yo female PMH significant for PEx2 on coumadin, GERD, HTN, Asthma and Chronic pain who presents with acute back pain and left foot numbness consistent with with L4/L5 radiculopathy. INR too high for original surgery date which has been postponed until 06/14. - Patient Problems (1) Lumbar radiculopathy, acute Code(s): M54.16 - RADICULOPATHY, LUMBAR REGION SNOMED Code(s): 508841990 Comment: - Patient presented with pain, weakness, and sensory deficits consistent with a L4-5 radiculopathy - S/P L4-5 decompressive lami and discectomy L4-[address] Peralta, POD #3 - Continue pain management, prednisone taper, gabapentin 200mg TID - Plan for rehab (2) UTI (urinary tract infection) Comment: - with dysuria - UCx with only 50-75K Ecoli - Received ceftriaxone 1gm IV x3 days and cefuroxime x 2 days (3) HTN (hypertension) Code(s): I10 - ESSENTIAL (PRIMARY) HYPERTENSION SNOMED Code(s): 92237239 Comment: - Normotensive - Continue Lopressor (4) Hx of pulmonary embolus Code(s): Z86.711 - PERSONAL HISTORY OF PULMONARY EMBOLISM SNOMED Code(s): 933277814 Comment: - INR has normalized - As outpatient, was on coumadin with labile INRs - 2nd PE was December 2016, previous PE was 10 years prior (anticoagulated for 3.5 years). - Degree of provocation, given morbid obesity and relative chronic immobility. - Continue warfarin with frequent INRs (5) LUIS ANTONIO (obstructive sleep apnea) Code(s): G47.33 - OBSTRUCTIVE SLEEP APNEA (ADULT) (PEDIATRIC) SNOMED Code(s): 53247354 Comment: - Pending further evaluation with sleep lab (6) GERD (gastroesophageal reflux disease) Code(s): K21.9 - GASTRO-ESOPHAGEAL REFLUX DISEASE WITHOUT ESOPHAGITIS SNOMED Code(s): 655366058 Comment: - Continue omeprazole (7) Morbid obesity Code(s): E66.01 - MORBID (SEVERE) OBESITY DUE TO EXCESS CALORIES SNOMED Code(s ): 230976850 Comment: - BMI 63 - Patient following with bariatric surgeon in [place]. - Surgical plans on hold, per patient, as she will also need a hysterectomy for fibroids. (8) DVT prophylaxis Code(s): LBQ2781 - SNOMED Code(s): 668575041 Comment: - SCDs while in bed - Continue Warfarin (9) Full code status Code(s): Z78.9 - OTHER SPECIFIED HEALTH STATUS SNOMED Code(s): 285529671 Status and Disposition: Inpatient. Anticipate discharge to [facility].
[2017-06-17] MEDS: Metoprolol Tartrate TAB* 25 MG PO SCH (08:55)
[2017-06-17] MEDS: predniSONE TAB* 50 MG PO SCH (08:56)
[2017-06-17] MEDS: Nystatin TOP POWDER* 15 GM BTL TOPICAL SCH (09:00)
[2017-06-17] MEDS: Gabapentin CAP(*) 100 MG PO SCH (09:40)
[2017-06-17] MEDS: Ferrous Gluconate TAB* 324 MG TAB PO SCH (09:40)
[2017-06-17 09:45] VITALS: BP 126/69
--- NOTE | 2017-06-17 10:14 | PN ---
Progress Note - Progress Note Date of Service: 06/17/17 SOAP: Subjective: [S/p lumbar discectomy L4-5 bilaterally, POD #3. She is participating in physical therapy and has been up out of bed; legs are feeling stronger. Complains of persistent numbness of the plantar bilateral feet. Pain well controlled with PO pain medications. ] Objective: [ Vital Signs: Temp Pulse Resp BP Pulse Ox 97.9 F 82 18 126/69 95 06/17/17 07:24 06/17/17 07:24 06/17/17 09:40 06/17/17 07:24 06/17/17 07:24 General: Alert and oriented. No distress. Neuro: Persistent weakness in left dorsiflexion and EHL. Mild weakness of Right foot. ] Assessment: [Satisfactory post-op course. She is looking forward to rehab.] Plan: [1. Discharge to [facility] rehab today. 2. She will follow up in office on 06/23.]
--- NOTE | 2017-06-17 12:48 | DS ---
CC: [facility]; Serena Murillo MD; Evan Peralta MD* DISCHARGE SUMMARY: DATE OF ADMISSION: 06/06/17 DATE OF DISCHARGE: 06/17/17 ATTENDING PHYSICIAN: Dr. Ramon Grigsby* (dictated by Abby Hartmann NP) PRIMARY CARE PROVIDER: Serena Murillo MD. PRIMARY DIAGNOSES: 1. Acute lumbar radiculopathy, status post L4-5 decompressive laminectomy and a bilateral diskectomy at L4-[address] Peralta on 06/14/17. 2. Urinary tract infection, completed 5-day course of treatment. SECONDARY DIAGNOSES: 1. Hypertension. 2. History of pulmonary embolus. 3. Obstructive sleep apnea. 4. Gastroesophageal reflux disease. 5. Morbid obesity, BMI 63. CONSULTATIONS WHILE IN THE HOSPITAL: Dr. Evan Peralta with Neurosurgery. PROCEDURES WHILE IN THE HOSPITAL: Status post L4-5 decompressive laminectomy and bilateral diskectomies at L4-[address] Peralta on 06/14/17. STUDIES WHILE IN THE HOSPITAL: 1. Lumbar spine CT on 06/06/17. Radiologist impression: Negative for fracture. No significant interval change in multilevel advanced degenerative spondylosis and facet joint osteoarthritis with associated central canal and foraminal stenosis as described. 2. Lumbar spine MRI on 06/08/17. Radiologist impression: Multilevel degenerative disk disease as noted. There is a moderate to large central disk extrusion at L4-5 compressing the thecal sac and likely impinging upon both descending nerve roots. There is moderate to severe spinal stenosis at this level, moderate degree of facet hypertrophy is noted at L3-4 spondylotic ridge with degenerative disk disease and broad-based protrusion. Moderate degree of facet arthropathy is noted. At T10- T11, right paracentral disk protrusion indents the thecal sac without evidence of spinal cord compression. 3. Chest x-ray on 06/09/17. Radiologist impression: Cardiomegaly without compelling evidence for pulmonary edema or other acute intrathoracic process. 4. Lumbar spine x-ray on 06/14/17. Radiologist impression: Limited portable view of spine for a localization during spinal surgery. DISCHARGE MEDICATIONS: Continued home medication, Zantac. New home medications: 1. Colace 200 mg oral daily as needed for constipation. 2. Neurontin 200 mg oral 3 times daily. 3. [place] 5/325 two tablets oral every 4 hours as needed for moderate to severe pain. 4. [place] 5/325 one tablet oral every 4 hours as needed for mild to moderate pain. 5. Omeprazole 20 mg oral daily. 6. Senna one tablet oral daily as needed for constipation. 7. Prednisone 20 mg tablets, take 50 mg on 06/18/17 followed by 40 mg starting on 06/19/17 for three days, followed by 30 mg for three days, followed by 20 mg oral daily for three days, followed by 10 mg oral daily for three days, then stop. 8. Ranitidine 300 mg oral daily at bedtime. 9. Ferrous gluconate 240 mg oral daily. 10. Albuterol HFA two puffs inhalation every 4 hours as needed for shortness of breath or wheeze. 11. Warfarin 8 mg oral daily. 12. Metoprolol tartrate 12.5 mg oral every 12 hours. 13. Acetaminophen 650 mg oral every 4 hours as needed. 14. Flexeril 10 mg oral 3 times daily as needed for muscle spasms. 15. Nystatin apply topical 3 times daily. HISTORY OF PRESENT ILLNESS/HOSPITAL COURSE: Ms. Jain is a 57-year-old female with past medical history significant for recurrent pulmonary embolus, uterine bleeding, obstructive sleep apnea, morbid obesity, GERD, hypertension, left bundle branch block and asthma who presented to the emergency room with complaints of severe back pain and inability to move. The patient reported being in her usual state of health until approximately 05/31/17 when she moved into her new home and states that she was not lifting anything heavy, but was bending over to pick things up and put them away, then she developed low back pain, took some Tylenol and initially had some relief. By the next day, the patient was able to ambulate with her walker but the pain became more severe and continued to progress during the week. On 06/04/17, the patient presented to the emergency room with complaints of severe back pain. She was discharged home at that time with Mont[place]ello and Flexeril. The patient had little response to improvement in her pain with pain medications. The pain became so severe that she was unable to get out of bed without assistance. Her brother had been helping her. She was incontinent of stool in her bed and felt as though she needed to be able to get up to use the bathroom, but was unable to due to the patient's continued back pain and inability to ambulate. She presented to the emergency room for further evaluation of her symptoms. While in the emergency room, the patient had a CT scan of her lumbar spine that was negative for fracture but showed significant change when compared to previous CT from February 2016 with multilevel advanced degenerative spondylosis and facet joint osteoarthritis with associated central canal and foraminal stenosis. The patient had labs, they were fairly unremarkable and hospice was asked to evaluate the patient for admission. While in the hospital, the patient continued to have pain. She underwent a lumbar spine MRI showing again multilevel degenerative disk disease and a moderate to large central disk extrusion at L4-5, compressing with thecal sac and likely impinging upon both descending nerve roots. The patient also had a moderate to severe spinal stenosis at the level with moderate degree of facet hypertrophy noted. The patient was then seen in consultation by Dr. Peralta who felt that the patient was likely not going to respond to nonsurgical therapy given the degree of her pain and her morbid obesity and was felt that she should have a lumbar diskectomy at L4-5. The patient had initially been scheduled for surgery on 06/10/17 but due to being on warfarin for her history of pulmonary embolus, she was initially supratherapeutic and unable to get her INR down. The surgery was rescheduled for 06/14/17. The patient underwent surgery of a decompressive laminectomy and diskectomy at L4-[address] Peralta on 06/14/17. The patient had been doing well since her procedure, although she has been slow being able to get up and move around due to weakness in her left leg. This has been improving. She was restarted on her warfarin on 06/16/17 as she needs to be on lifelong anticoagulation due to her history of PE's. The patient also had a urinary tract infection with 500 to 75,000 E. coli. During her stay, she received a total of 3 days of ceftriaxone and 2 days of cefuroxime. The patient's blood pressures have been controlled. She has also been continued on a prednisone taper and Neurontin. The patient has been improving, but it was felt that she needed rehab before returning home. Ms. Jain is stable for discharge to [facility] today. Vital signs are as follows: Temperature 97.9, heart rate 82, respiratory rate 16, O2 sat 95% on room air, blood pressure 126/69. DISCHARGE PLAN: Ms. Jain will be discharged to [facility] today. Activity as tolerated. She should be seen in consultation by Physical Therapy and Occupational Therapy. As far as the patient's lumbar radiculopathy, she is status post an L4-5 decompressive laminectomy and diskectomy at L4-[address] Peralta. She should be continued on [place]ello for pain management in addition to her prednisone taper and gabapentin. She should be seen in followup by Dr. Peralta on 06/23/17. His office should be called to set up a followup appointment. The patient received full treatment for urinary tract infection. For her hypertension, she has been normotensive here. She will be continued on Lopressor. As far as the patient's history of pulmonary embolus, she was okay to resume warfarin by Neurosurgery on yesterday 06/16/17. For now, she should be continued on 8 mg daily with INR's on Wednesday, Wednesday and Wednesday. For the patient's sleep apnea, she needs further outpatient evaluation. For her acid reflux, she has been continued on omeprazole. For her morbid obesity, she has been following with bariatric surgeon in [place]. Those plans have been placed on hold for now. She will also need a hysterectomy due to her fibroids. The patient should be seen in followup by a provider at [facility] or by her primary care provider Dr. Murillo in followup. The patient should return to the emergency room for any chest pain, shortness of breath. This is a summarized report of a complex medical history and hospital stay. For further details, please see the entire medical record. TIME SPENT: Time for this discharge was approximately 50 minutes, greater than half of that was spent with the patient discussing discharge plans and instructions. CONDITION ON DISCHARGE: Stable. ABBY HARTMANN NP [id number]/[facility] #: [id number] DIVINA
[2017-06-19] MEDS ORDERED: predniSONE TAB* 20 MG PO SCH (09:00)
== END 2017-06-17 11:55 | DRG 320 ==
LOC: ED 08:18 → MED 12:24 → OBSVTOIN 06-08 14:45 → SSU 06-14 17:19
PROVIDERS: ADMIT Internal Medicine; ATTEND Internal Medicine
PROC: 3E0234Z Introduction of Serum, Toxoid and Vaccine into Muscle, Percutaneous Approach (ICD-10-PCS; principal; 2017-06-08)
PROC: 01NB0ZZ Release Lumbar Nerve, Open Approach (ICD-10-PCS; 2017-06-14)
DX: M54.16 Radiculopathy, lumbar region (principal); Z68.44 Body mass index [BMI] 60.0-69.9, adult; I10 Essential (primary) hypertension; N39.0 Urinary tract infection, site not specified; M17.12 Unilateral primary osteoarthritis, left knee; R32 Unspecified urinary incontinence; Z91.018 Allergy to other foods; I44.7 Left bundle-branch block, unspecified; J45.909 Unspecified asthma, uncomplicated; Z86.711 Personal history of pulmonary embolism; K21.9 Gastro-esophageal reflux disease without esophagitis; G89.29 Other chronic pain; Z82.49 Family history of ischemic heart disease and other diseases of the circulatory system; Z90.49 Acquired absence of other specified parts of digestive tract; Z87.891 Personal history of nicotine dependence; G47.33 Obstructive sleep apnea (adult) (pediatric); E66.01 Morbid (severe) obesity due to excess calories; Z23 Encounter for immunization
CPT/HCPCS: 36415; 71010; 72100; 72131; 72148; 80048; 80053; 81003; 81015; 85025; 85610; 85652; 86140; 86850; 86900; 86901; 87077; 87086; 87186; 88304; 90686; 93005; A9270-GY; G8987-GO-CL; G8988-GO-CI; J0330; J0690; J0696; J0780; J1100; J1170; J1885; J2001; J2250; J2270; J2360; J2405; J2704; J2920; J3010; J7512

== ENCOUNTER 2017-07-30 12:31 | Inpatient (IN) | payer OTHER ==
[2017-07-30] MEDS ORDERED: methylPREDNISolone 125 MG* 2 ML VIAL IV ONE (13:14)
[2017-07-30] MEDS ORDERED: Albuterol/Ipratropium NEB.SOL* Albuterol 2.5 MG/Ipratropium 0.5 MG 3 ML INH ONE (13:14)
[2017-07-30 13:43] LABS: Hematocrit 40 % (35-47); Hemoglobin 13.1 g/dl (12.0-16.0); Mean Corpuscular HGB Conc 33 g/dl (31-36); Mean Corpuscular Hemoglobin 28 pg (27-31); Mean Corpuscular Volume 85 fL (80-97); Mean Platelet Volume 10 um3 (7.4-10.4); Red Blood Count 4.75 10^6/ul (4.0-5.4); Red Cell Distribution Width 17 % (10.5-15)
[2017-07-30 14:02] LABS: Albumin 3.4 g/dL (3.2-5.2); BUN/Creatinine Ratio 22.2 (8-20); Calcium 9.2 mg/dL (8.6-10.3); EGFR African American 149.7 (>60); EGFR Non-African American 116.4 (>60); Globulin 2.9 g/dL (2-4); Magnesium 1.9 mg/dL (1.9-2.7); Potassium 3.6 mmol/L (3.5-5.0); Total Bilirubin 0.5 mg/dL (0.2-1.0); Total Protein 6.3 g/dL (6.4-8.9)
--- NOTE | 2017-07-30 14:10 | RAD ---
HISTORY: Chest pain COMPARISONS: July 22, 2017 VIEWS: 1: frontal portable view of the chest at 1:44 PM FINDINGS: LINES AND TUBES: None. CARDIOMEDIASTINAL SILHOUETTE: The cardiomediastinal silhouette is normal for portable technique. PLEURA: The costophrenic angles are sharp. No pleural abnormalities are noted. LUNG PARENCHYMA: There is patchy alveolar opacification of the right upper lung. ABDOMEN: The upper abdomen is clear. There is no subphrenic gas. BONES AND SOFT TISSUES: No bone or soft tissue abnormalities are noted. IMPRESSION: RIGHT UPPER LUNG ATELECTASIS VERSUS CONSOLIDATION. RECOMMEND FOLLOW UP UNTIL RESOLUTION TO EXCLUDE UNDERLYING PULMONARY PARENCHYMAL PATHOLOGY.
[2017-07-30] MEDS ORDERED: Azithromycin IV(*) 500 MG in NS 0.9% 250 ML* 250 ML IVPB ONE (14:17)
[2017-07-30] MEDS ORDERED: cefTRIAXone VIAL(*) 1,000 MG in NS 0.9% 50 ML* 50 ML IVPB ONE (14:17)
--- NOTE | 2017-07-30 14:36 | ED ---
Brenda Parra Alfonso, scribed for Raffaele Medina MD on 07/30/17 at 1314 . HPI Chest Pain - HPI Summary HPI Summary: This patient is a 57 year old F BIBA presenting to [facility] with a chief complaint of chest heaviness beginning 2 days prior and has gotten worse. The patient rates the pain 6/10 in severity. Symptoms alleviated by nothing. Pt was given ASA in ambulance and used her inhaler with no relief. Pt compares symptoms to bronchitis. Pt has had two PEs previously and is on Coumadin. Patient reports nonproductive cough (3-4 weeks), sob (last couple days), nausea, LE pain and edema worse at the RLE. - History of Current Complaint Chief Complaint: EDChestPainROMI Time Seen by Provider: 07/30/17 13:01 Hx Obtained From: Patient Hx Last Menstrual Period: N/A Onset/Duration: Started Days Ago - 2, Worse Since Timing: Constant Initial Severity: Mild Current Severity: Moderate Pain Intensity: 5 Pain Scale Used: 0-10 Numeric Character: Cough, Non-Productive, Other: - cough chronic (3-4 weeks), sob (last couple days), nausea, Le pain and edema with the majority in her right leg Alleviating Factor(s): Nothing Associated Signs and Symptoms: Positive: Other: - cough chronic (3-4 weeks), sob (last couple days), nausea, Le pain and edema with the majority in her right leg, Patient denies any sputum. Related History: Similar Episode/Dx as: - Had two previous PE's - Additional Pertinent History Primary Care Physician: [id number] - Allergy/Home Medications Allergies/Adverse Reactions: Allergies Allergy/AdvReac Type Severity Reaction Status Date / Time Buckwheat Allergy Intermediate Rash Verified 06/04/17 03:11 Dust Mite Extract Allergy Intermediate Headache Verified 06/04/17 03:11 PMH/Surg Hx/FS Hx/Imm Hx Previously Healthy: No Endocrine/Hematology History: Reports: Hx Anemia Denies: Hx Diabetes, Hx Unexplained Bleeding Cardiovascular History: Reports: Hx Angina, Hx Embolism, Hx Hypertension, 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; tricuspid gisele disease, Other Cardiovascular Problems/Disorders - left BBB, chronic edema Denies: Hx Aneurysm, Hx Angioplasty, Hx Auto Implanted Cardiovert Defib, Hx Cardiac Arrest, Hx Cardiomegaly, Hx Congenital Heart Disease, Hx Congestive Heart Failure, Hx Coronary Artery Disease, Hx Deep Vein Thrombosis, Hx Hypercholesterolemia, Hx Hypotension, Hx Myocardial Infarction, Hx Pacemaker/ICD , Hx Peripheral Vascular Disease, Hx Rheumatic Fever, Hx Syncope Respiratory History: Reports: Hx Asthma, Hx Pulmonary Embolism, Hx Sleep Apnea, Other Respiratory Problems/Disorders - PE hx 2005 liyah Denies: Hx Chronic Obstructive Pulmonary Disease (COPD) GI History: Reports: Hx Gall Bladder Disease - removed, Hx Gastroesophageal Reflux Disease, Other GI Disorders - stomach stapled History: Denies: Hx Renal Disease Musculoskeletal History: Reports: Hx Back Problems, Other Musculoskeletal History - chronic knee pain Sensory History: Reports: Hx Contacts or Glasses Denies: Hx Cataracts, Hx Eye Injury, Hx Eye Prosthesis, Hx Glaucoma, Hx Legally Blind, Hx Macular Degeneration, Hx Vision Problem, Hx Hearing Aid, Other Sensory Impairments Opthamlomology History: Reports: Hx Contacts or Glasses Denies: Hx Cataracts, Hx Eye Injury, Hx Eye Prosthesis, Hx Glaucoma, Hx Legally Blind, Hx Macular Degeneration, Hx Vision Problem, Other Sensory Impairments Neurological History: Denies: Other Neuro Impairments/Disorders Psychiatric History: Denies: Hx Panic Disorder - Surgical History Surgery Procedure, Year, and Place: CARDIAC CATH, TONSILECTOMY, , RIGHT ABD HERNIA REPAIR X3, STOMACH STAPLING, CHOLECYSTECTOMY - Immunization History Date of Tetanus Vaccine: Unk Date of Influenza Vaccine: None Infectious Disease History: No Infectious Disease History: Denies: Hx Clostridium Difficile, Hx Hepatitis, Hx Human Immunodeficiency Virus (HIV), Hx of Known/Suspected MRSA, Hx Shingles, Hx Tuberculosis, Hx Known/ Suspected VRE, Hx Known/Suspected VRSA, History Other Infectious Disease, Traveled Outside the [place] in Last 30 Days - Family History Known Family History: Positive: Cardiac Disease - father with MT and in 80's, Hypertension - father - Social History Alcohol Use: Rare Hx Substance Use: No Substance Use Type: Reports: None Hx Tobacco Use: Yes Smoking Status (MU): Former Smoker Type: Cigarettes Have You Smoked in the Last Year: No Review of Systems Positive: Chest Pain Positive: Shortness Of Breath, Cough Positive: Nausea Musculoskeletal: Other - LE pain Positive: Edema All Other Systems Reviewed And Are Negative: Yes Physical Exam Triage Information Reviewed: Yes Vital Signs On Initial Exam: Initial Vitals Temp Pulse Resp BP Pulse Ox 99.4 F 80 16 103/64 97 07/30/17 12:52 07/30/17 12:52 07/30/17 12:52 07/30/17 12:52 07/30/17 12:52 Vital Signs Reviewed: Yes Appearance: Positive: No Pain Distress, Obese Skin: Positive: Warm, Skin Color Reflects Adequate Perfusion Head/Face: Positive: Normal Head/Face Inspection Eyes: Positive: EOMI ENT: Positive: Normal ENT inspection Neck: Positive: Supple, Nontender Respiratory/Lung Sounds: Positive: Clear to Auscultation, Breath Sounds Present Cardiovascular: Positive: RRR. Negative: Murmur Abdomen Description: Positive: Nontender Musculoskeletal: Positive: Strength/ROM Intact, Edema Left, Edema Right Neurological: Positive: Sensory/Motor Intact, Alert, Oriented to Person Place, Time, CN Intact II-III Psychiatric: Positive: Normal - [place] Coma Scale Best Eye Response: 4 - Spontaneous Best Motor Response: 6 - Obeys Commands Best Verbal Response: 5 - Oriented Coma Scale Total: 15 Diagnostics - Vital Signs Vital Signs Temp Pulse Resp BP Pulse Ox 07/30/17 13:00 78 15 100/57 98 07/30/17 12:57 77 16 07/30/17 12:56 80 13 96 07/30/17 12:55 103/64 07/30/17 12:52 99.4 F 80 16 103/64 97 - Laboratory Result Diagrams: 07/30/17 13:30 07/30/17 13:30 Lab Statement: Any lab studies that have been ordered have been reviewed, and results considered in the medical decision making process. - Radiology CXR Radiology Interpretation Completed By: Radiologist - CXR reveals, per radiologist, RIGHT UPPER LUNG ATELECTASIS VERSUS CONSOLIDATION. RECOMMEND FOLLOW UP UNTIL RESOLUTION TO EXCLUDE UNDERLYING PULMONARY PARENCHYMAL PATHOLOGY. ED physician has reviewed this radiology report and agrees. - EKG 13:21 Cardiac Rate: NL EKG Rhythm: Sinus Rhythm - NSR at 79 BPM EKG Interpretation: HI at 171, QRS at 97, no STEMI Chest Pain Course/Dx - Course Course Of Treatment: 57 yr old with RUL pneumonia, sob, cough, and wheezing with chest tightness. She will get a CT chest as well given that she may have underlying abnormality in rul per radiology and also her history of PE. DW Dr Gonzalez. - Diagnoses Provider Diagnoses: Pneumonia, Shortness of breath, Chest pain - Provider Notifications Discussed Care Of Patient With: Shante Gonzalez Time Discussed With Above Provider: 14:18 Instructed by Provider To: Other - Consulted Dr. Gonzalez (hospitalist) who agrees to admit. - Critical Care Time Critical Care Time: 30-74 min Discharge - Discharge Plan Condition: Good Disposition: ADMITTED TO [facility] Referrals: Serena Murillo MD [Primary Care Provider] - The documentation as recorded by the Brenda steve Alfonso accurately reflects the service I personally performed and the decisions made by Carol morales Walter, MD.
[2017-07-30] MEDS ORDERED: Ondansetron INJ* 2 MG/ML VIAL IV PRN (14:47)
[2017-07-30] MEDS ORDERED: Albuterol 2.5 MG/3 ML NEB.SOL* (0.083%) INH PRN (14:47)
[2017-07-30] MEDS ORDERED: Acetaminophen TAB* 325 MG PO PRN (14:47)
[2017-07-30] MEDS ORDERED: cefTRIAXone(*) 1 GM ADVAN ONE (14:47)
[2017-07-30] MEDS ORDERED: Cyclobenzaprine TAB* 10 MG PO PRN (14:50)
[2017-07-30] MEDS ORDERED: Senna TAB PO PRN (14:50)
[2017-07-30] MEDS ORDERED: NS 0.9% 1000 ML* 1,000 ML IV SCH (15:00)
[2017-07-30] MEDS ORDERED: Iohexol 350* (CONTRAST) 500 ML MDV IV ONE (15:01)
[2017-07-30] MEDS ORDERED: HYDROcodone/ACETAMIN 5-325 MG* 1 TAB PO PRN (15:02)
--- NOTE | 2017-07-30 15:11 | RAD ---
HISTORY: Bilateral lower extremity edema and pain COMPARISONS: None relevant TECHNIQUE: Multiple transverse and longitudinal ultrasound images were obtained of the bilateral lower extremities from the level of the common femoral vein inferiorly through to the infrapopliteal veins using grayscale, color Doppler, and spectral Doppler imaging with and without compression and with augmentation. FINDINGS: The study is limited by patient body habitus. VEINS: The venous system of the bilateral lower extremities is compressible throughout its course, with normal flow on color Doppler imaging and normal response to augmentation on spectral Doppler imaging. SOFT TISSUES: Unremarkable. OTHER FINDINGS: None. IMPRESSION: NO RIGHT LOWER EXTREMITY DEEP VEIN THROMBOSIS. NO LEFT LOWER EXTREMITY DEEP VEIN THROMBOSIS
--- NOTE | 2017-07-30 16:32 | RAD ---
INDICATION: Substernal chest pain evaluate for pulmonary embolism, mass or pneumonia. COMPARISON: Comparison is made with a prior CT angiogram of the chest from March 09, 2017 and a prior chest x-ray study from July 30, 2017. TECHNIQUE: A CT angiogram of the chest was performed with intravenous following intravenous injection of 88 ml of Omnipaque 350 nonionic contrast. Contiguous axial sections were obtained from the lung apices through the lung bases. Images were reconstructed in the coronal and sagittal planes. FINDINGS: No intraluminal filling defect or pulmonary embolism is seen. There is prominence of the central pulmonary artery which is unchanged from the prior exam raising the possibility of pulmonary artery hypertension. The heart is within normal limits in size. No pericardial effusion is present. The thoracic aorta is normal in caliber and demonstrates homogeneous contrast opacification. There is a slightly prominent right paratracheal lymph node measuring 1 cm in transverse dimension which appears unchanged from the prior study. No other enlarged mediastinal or hilar lymph nodes are seen. 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 The goiter causes narrowing of the trachea. There are small bilateral lower lobe infiltrates. No pleural effusion is seen. Images of the upper abdomen demonstrate fatty infiltration of the liver and mild splenomegaly. No significant focal osseous abnormality is seen. IMPRESSION: 1. NO EVIDENCE FOR PULMONARY EMBOLISM. 2. PROMINENCE OF THE CENTRAL PULMONARY ARTERIES, UNCHANGED SUGGESTING THE POSSIBILITY OF PULMONARY ARTERY HYPERTENSION. 3. SMALL BILATERAL LOWER LOBE INFILTRATES. 4. 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 5. HEPATIC STEATOSIS. 6. MILD SPLENOMEGALY.
--- NOTE | 2017-07-30 16:58 | HP ---
CC: Dr. Murillo * HISTORY AND PHYSICAL: DATE OF ADMISSION: 07/30/17 PRIMARY CARE PROVIDER: Dr. Murillo. ATTENDING PHYSICIAN WHILE IN THE HOSPITAL: Shante Pan MD * (report dictated by Seamus Aden NP). CHIEF COMPLAINT: 1. Chest pain. 2. Cough. HISTORY OF PRESENTING ILLNESS: Mrs. Jain is a 57-year-old female patient, she has a history of PE, uterine bleeding, history of LUIS ANTONIO, not wearing a mask, history of obesity, GERD, hypertension, history of a left bundle-branch block, asthma and history of spinal stenosis, who comes into the ER today. She was at Dr. Peralta's office seeing his PA there, Ashley High and she was complaining to Ashley that she in the last couple of days has been having constant chest discomfort in the center of her chest. Given her history there was concern and she was sent to the ER. The patient was following there because she has now noticed that her right leg, she has been having pain on the lateral aspect of her right lower extremity that has been shooting down the leg. In addition to this has been having some weakness intermittently to the right lower extremity. She was following with Dr. Peralta and their team for further evaluation and management with the chest pain was the reason why she came over. The patient states that she has been having chest pain for the last 2 days, constant, worse with taking a deep breaths and worse with taking a cough. She has been having a dry persistent cough, in addition to this has been noting that her chest has been tender particularly she said when the ER provider examined her and palpated her chest, she said it was tender and hurt. She says that she had to have a fever of 99, but nothing over 100.4. She says she has been coughing, but it has been nonproductive. She does state that she has had some rhinorrhea , but no sore throat and she says she has been just taking all over and just not feeling well. She was evaluated here and was noted ultimately that she did have an x-ray concerning for pneumonia in the right upper lobe, so we were asked to evaluate for admission. PAST MEDICAL HISTORY: Significant for: 1. PE, on chronic anticoagulation. 2. Uterine bleeding. 3. LUIS ANTONIO. 4. Obesity. 5. GERD. 6. Hypertension. 7. History of left bundle-branch block. 8. Asthma. 9. Spinal stenosis. PAST SURGICAL HISTORY: 1. She has had a hernia repair. 2. Cholecystectomy. 3. Tonsillectomy. 4. She has a . 5. Most recently, she had a L4-L5 decompressive laminectomy. MEDICATIONS: The home meds according to an old list, we are getting an accurate list updated now includes: 1. Coumadin 6 mg daily. 2. Senna 1 tablet daily as needed. 3. Zantac 300 mg daily. 4. Prilosec 20 mg daily. 5. Lopressor 12.5 mg every 12 hours. 6. Clinton 1 to 2 tablets every 6 hours. 7. Gabapentin 200 mg p.o. t.i.d. 8. Ferrous gluconate 240 mg p.o. daily. 9. Flexeril 10 mg p.o. t.i.d. as needed. 10. Ventolin 2 puffs inhaler every 4 hours as needed. ALLERGIES TO MEDICATIONS: Include none, but she is allergic to BUCKWHEAT and DUST. FAMILY HISTORY: She says her mother is alive and well. Father did have a history of an SD. SOCIAL HISTORY: She does not smoke. She does not drink. She denies any recreational drugs. Surrogate decision maker is her daughter. REVIEW OF SYSTEMS: There is no documented fever. She denied having any significant weight change. There was no double vision. She denies having any ear discharge. There was rhinorrhea. There was no sore throat. No thyroid enlargement. She does admit to having chest discomfort per my HPI. There was no orthopnea, no nocturnal dyspnea. There was dyspnea on exertion. There was no abdominal pain. There was no nausea, no vomiting, no dysuria, no frequency, no seizure. There was no loss of consciousness, no pruritus, and no skin ulcerations. Review of 14 systems completed, all others were negative. PHYSICAL EXAMINATION GENERAL: At this time, Mrs. Jain is a 57-year-old female patient. She is morbidly obese. She is sitting in the ER stretcher. She does not appear to be in any acute distress. VITAL SIGNS: Blood pressure 119/80 with a pulse of 72, respirations 18, O2 sat 97%, temperature 99.4. HEENT: Head: Atraumatic. Eyes: EOMs are intact. Sclerae are anicteric, not pale. Throat: Oral mucosa appears to be dry. No oropharyngeal erythema. NECK: Supple. LUNGS: Diminished in the bases. She had equal diaphragmatic expansion. There were no wheezes, rales, or rhonchi. HEART: Sounds S1, S2. Regular rate and rhythm. No murmurs, rubs, or gallops. ABDOMEN: Soft, flat, and nontender. Bowel sounds are present. EXTREMITIES: Pulses were 2+ throughout. She is able to move all 4 extremities. She does have positive straight leg test on the right lower extremity. Plantar and dorsiflexions are intact. Sensation is intact to the bilateral lower extremities as well. NEUROLOGIC: She is awake, alert, and oriented x3. Tongue midline. Rural Sociologist are equal. No gross focal deficits. SKIN: Intact with exception she does have what appears to be a rash underneath the bilateral breast and in the groin, which does appear to be fungal in nature. Otherwise, skin was intact. DIAGNOSTIC STUDIES/LAB DATA: Labs revealed WBC of 7.0, RBC of 4.75, hemoglobin of 13.1, hematocrit of 40, platelet count 293. INR was 1.83, PTT of 41.1. D-dimer was less than 200. Her sodium was 139, potassium 3.6, chloride of 102, bicarb of 32, BUN 12, creatinine of 0.54, glucose 112, lactate 0.9, calcium 9.2. Mag 1.9. Total bilirubin 0.5, AST 13, ALT 12, alk phos 50. Troponin 0, BNP 30, albumin 3.4. She did have an EKG obtained today, which revealed normal sinus rhythm with a PVC. No ST elevations or T-wave inversions were noted, rate of 79. It was reviewed with the previous EKG and it does appear to be similar. She had a chest x-ray obtained today as well, impression: Right upper lobe atelectasis versus consolidation. Recommend followup until resolution to exclude underlying pulmonary parenchymal pathology. Old medical records were reviewed. ASSESSMENT AND PLAN: Mrs. Jain is a 57-year-old female patient coming into the ER today with complaints of chest discomfort. On evaluation, she was found to have possible pneumonia. She will be admitted under observation status for: 1. Chest pain. I suspect the etiology of this as she probably does have a pneumonia in the right upper lobe, which is causing with some chest discomfort, most likely it is viral given her history. I will get a flu swab. We will put her empirically on antibiotics. In addition to this, we will get Legionella antigen, strep pneumo antigen and in addition to this try to get sputum cultures if possible. I did order a p.r.n. nebs. She is not wheezing, so I did not order any steroids at this point and we will continue to follow. I will cycle her troponins because of the chest pain. She did have a stress test 5 months ago, which was negative, that was done in February. In addition to this, we will place her on telemetry and follow closely. 2. History of pulmonary embolism. Her INR is subtherapeutic. She is going to get a CTA just to make sure she has not had any recurrence of disease, which may be causing the pain. I have increased her Coumadin to 7.5 mg. 3. History of uterine bleeding. We will follow the H and H closely. 4. Obstructive sleep apnea. Again, she is not compliant with her mask. 5. History of gastroesophageal reflux disease. Continue PPI therapy. 6. Hypertension. Continue meds as prescribed. 7. History of asthma. P.r.n. albuterol has been ordered. 8. History of left bundle-branch block. She is in a sinus rhythm now. 9. History of spinal stenosis. Now with a right lower extremity lumbar radiculopathy. I did order a PT evaluation and she will need to follow closely with Dr. Peralta and his team in the outpatient setting. In addition to this, also follow up with primary. She is not really having any pain, but I did order Flexeril and we will continue her Clinton as needed should she need it. 10. DVT prophylaxis. Again, we will continue her on her warfarin. 11. Code status. Full code. 12. Fluids, electrolytes, and nutrition: She can have a heart-healthy diet. TIME SPENT: On the admission was 60 minutes, greater than half the time spent face- to-face with the patient obtaining my history and physical, other half the time spent going over the plan of care with the patient and implementing the plan of care. I did discuss the plan of care with my attending, Dr. Pan; she is in agreement. SEAMUS ADEN NP [id number]/[facility] #: [id number] DIVINA
[2017-07-30] MEDS ORDERED: Warfarin TAB(*) 5 MG PO SCH (17:00)
[2017-07-30] MEDS: Warfarin TAB(*) 5 MG PO SCH (17:43)
[2017-07-30] MEDS: Nystatin TOP POWDER* 15 GM BTL TOPICAL SCH ×2 (17:44→21:49)
[2017-07-30] MEDS ORDERED: Gabapentin CAP(*) 100 MG PO SCH (21:00)
[2017-07-30] MEDS: Gabapentin CAP(*) 100 MG PO SCH (21:44)
[2017-07-30] MEDS: Metoprolol Tartrate TAB* 25 MG PO SCH (21:48)
[2017-07-30] MEDS: Famotidine TAB* 20 MG PO SCH (22:26)
[2017-07-30 23:45] LABS: Urine Bacteria Absent (Absent); Urine Bilirubin Negative (Negative); Urine Glucose Negative (Negative); Urine Nitrite Negative (Negative)
[2017-07-31] MEDS: Omeprazole CAP* 20 MG PO SCH (06:00)
[2017-07-31 06:53] LABS: Hematocrit 41 % (35-47); Hemoglobin 13.2 g/dl (12.0-16.0); Mean Corpuscular HGB Conc 32 g/dl (31-36); Mean Corpuscular Hemoglobin 27 pg (27-31); Mean Corpuscular Volume 84 fL (80-97); Mean Platelet Volume 10 um3 (7.4-10.4); Red Blood Count 4.89 10^6/ul (4.0-5.4); Red Cell Distribution Width 16 % (10.5-15); White Blood Count 7.2 10^3/ul (3.5-10.8)
[2017-07-31 07:11] LABS: BUN/Creatinine Ratio 20.9 (8-20); Calcium 9.3 mg/dL (8.6-10.3); EGFR African American 194.6 (>60); EGFR Non-African American 151.3 (>60); Potassium 3.9 mmol/L (3.5-5.0)
[2017-07-31] MEDS: Metoprolol Tartrate TAB* 25 MG PO SCH ×2 (08:52→20:11)
[2017-07-31] MEDS: Gabapentin CAP(*) 100 MG PO SCH ×3 (08:53→20:12)
[2017-07-31] MEDS: Nystatin TOP POWDER* 15 GM BTL TOPICAL SCH ×3 (08:53→20:14)
[2017-07-31] MEDS ORDERED: Famotidine TAB* 20 MG PO SCH (09:00)
[2017-07-31] MEDS: FERROUS GLUCONATE 240 MG PO SCH (09:24)
[2017-07-31] MEDS ORDERED: Azithromycin IV(*) 500 MG in NS 0.9% 250 ML* 250 ML IVPB SCH (15:00)
[2017-07-31] MEDS ORDERED: cefTRIAXone VIAL(*) 1,000 MG in NS 0.9% 50 ML* 50 ML IVPB SCH (15:00)
[2017-07-31] MEDS: Warfarin TAB(*) 5 MG PO SCH (16:34)
--- NOTE | 2017-07-31 16:51 | PN ---
Subjective Date of Service: 07/31/17 Interval History: Patient feels better today with decrease in the severity of the chest pain and decreased SOB, though she still gets SOB with activity. Patient complains mainly of decreased sensation in right leg, occasional pain radiating from her pain to her leg, and that she feels like she drags this leg when walking. Patient states that this started a week ago and has improved somewhat. Patient denies any saddle anesthesia or incontinence. Patient states she has been having occasional fevers and chills. Patient denies abdominal pain, dysuria, upper back pain, nausea, vomiting, or other pain. Family History: Unchanged from Admission Social History: Unchanged from Admission Past Medical History: Unchanged from Admission Objective Active Medications: Acetaminophen (Tylenol Tab*) 650 mg PO Q4H PRN PRN Reason: FEVER/PAIN Hydrocodone Bitart/Acetaminophen ([place] 5-325 Tab*) 1 tab PO Q4H PRN PRN Reason: PAIN Last Admin: 07/30/17 21:43 Dose: 1 tab Albuterol (Ventolin 2.5 Mg/3 Ml Neb.Tiffanie*) 2.5 mg INH Q2H PRN PRN Reason: SOB/WHEEZING Cyclobenzaprine HCl (Flexeril Tab*) 10 mg PO TID PRN PRN Reason: SPASMS Famotidine (Pepcid Tab*) 40 mg PO BEDTIME [facility] PRN Reason: Protocol Last Admin: 07/30/17 22:26 Dose: 40 mg Gabapentin (Neurontin Cap(*)) 200 mg PO TID [facility] Last Admin: 07/31/17 15:16 Dose: 200 mg Sodium Chloride (Ns 0.9% 1000 Ml*) 1,000 mls @ 100 mls/hr IV PER RATE [facility] Last Admin: 07/30/17 22:40 Dose: 100 mls/hr Ceftriaxone Sodium 1,000 mg/ (Sodium Chloride) 50 mls @ 200 mls/hr IVPB Q24H [facility] Last Admin: 07/31/17 16:30 Dose: 200 mls/hr Azithromycin 500 mg/ Sodium (Chloride) 250 mls @ 250 mls/hr IVPB Q24H [facility] Last Admin: 07/31/17 15:16 Dose: 250 mls/hr Metoprolol Tartrate (Lopressor Tab*) 12.5 mg PO Q12HR [facility] Last Admin: 07/31/17 08:52 Dose: 12.5 mg Non-Formulary Medication (Ferrous Gluconate [Ferrotabs]) 240 mg PO DAILY [facility] Last Admin: 07/31/17 09:24 Dose: Not Given Nystatin (Nystatin Top Powder*) 1 applic TOPICAL TID [facility] Last Admin: 07/31/17 15:17 Dose: 1 applic Omeprazole (Prilosec Cap*) 20 mg PO DAILY@0600 [facility] Last Admin: 07/31/17 06:00 Dose: 20 mg Ondansetron HCl (Zofran Inj*) 4 mg IV Q6H PRN PRN Reason: NAUSEA Senna (Senokot Tab*) 1 tab PO DAILY PRN PRN Reason: CONSTIPATION Warfarin Sodium (Coumadin Tab(*)) 7.5 mg PO DAILY@1700 [facility] PRN Reason: Protocol Last Admin: 07/31/17 16:34 Dose: 7.5 mg Vital Signs 07/31/17 15:16 Respiratory 16 Rate Oxygen Devices in Use Now: None Appearance: Patient is a 57yo female who appears stated age and is sitting in the chair in [facility]. Eyes: No Scleral Icterus, PERRLA Ears/Nose/Mouth/Throat: NL Teeth, Lips, Gums, Clear Oropharnyx, Mucous Membranes Moist Neck: NL Appearance and Movements; NL JVP, Trachea Midline Respiratory: Symmetrical Chest Expansion and Respiratory Effort, - - Slight expiratory wheezes in B/L upper lobes. Improved with deep breathing. Cardiovascular: NL Sounds; No Murmurs; No JVD, RRR, - - 1+ symmetrical edema in B/L LE Abdominal: NL Sounds; No Tenderness; No Distention, No Hepatosplenomegaly Lymphatic: No Cervical Adenopathy Skin: No Nodules or Sclerosis, - - Well healed surgical incision in lower back Neurological: Alert and Oriented x 3, - - Decreased sensation on right lateral thigh, anterior hill as well as lateral and plantar aspects of foot. 5/5 strength in all muscle groups except dorsiflexion of right foot at 4/5. Reflexes hard to assess due to body habitus, but biceps, patellar and achilles all present and equal B/L. Right foot drags when walking, otherwise normal gait. Result Diagrams: 07/31/17 06:27 07/31/17 06:27 Assess/Plan/Problems-Billing Assessment: - Patient Problems (1) Community acquired bacterial pneumonia Current Visit: Yes Status: Acute Code(s): J15.9 - UNSPECIFIED BACTERIAL PNEUMONIA SNOMED Code(s): 687431869 Comment: Patient's chest pain most likely due to CAP due to infiltrate on CT, SOB and subjective fevers/chills. Patient improving on antibiotics. (2) Lumbar radiculopathy Current Visit: Yes Status: Acute Code(s): M54.16 - RADICULOPATHY, LUMBAR REGION SNOMED Code(s): 775971559 Comment: Patient has lumbar radiculopathy symptoms without clear neurological pattern. Patient has multi level degenerative disc disease on MRI from previous admission. No signs of cauda equina syndrome, patient able to ambulate and no incapacitated by pain. Should be addressed as an outpatient. (3) Chest pain Current Visit: No Status: Acute Priority: Medium Code(s): R07.9 - CHEST PAIN, UNSPECIFIED SNOMED Code(s): 57577401 Comment: Improved on antibiotics, CTA negative for PE and dissection. No DVT on LE doppler. Troponins negative. Negative stress test in 03/06. (4) Hx of pulmonary embolus Current Visit: No Status: Acute Code(s): Z86.711 - PERSONAL HISTORY OF PULMONARY EMBOLISM SNOMED Code(s): 619487996 Comment: INR subtherapeutic, continue warfarin. No DVT or PE found at this time. (5) LUIS ANTONIO (obstructive sleep apnea) Current Visit: No Status: Acute Code(s): G47.33 - OBSTRUCTIVE SLEEP APNEA ( ADULT) (PEDIATRIC) SNOMED Code(s): 07800983 Comment: Pending further evaluation with sleep lab (6) UTI (urinary tract infection) Current Visit: No Status: Acute Comment: Without dysuria 3+ leukocyte esterase on UA. Being treated with ceftriaxone for PNA. Urine culture pending. (7) GERD (gastroesophageal reflux disease) Current Visit: No Status: Chronic Code(s): K21.9 - GASTRO-ESOPHAGEAL REFLUX DISEASE WITHOUT ESOPHAGITIS SNOMED Code(s): 063538482 Comment: Continue famotidine (8) HTN (hypertension) Current Visit: No Status: Chronic Priority: Medium Code(s): I10 - ESSENTIAL (PRIMARY) HYPERTENSION SNOMED Code(s): 12118257 Comment: Normotensive Continue Lopressor (9) DVT prophylaxis Current Visit: No Status: Acute Priority: Medium Code(s): JTQ5440 - SNOMED Code(s): 701669773 Comment: SCDs while in bed Continue Warfarin INR subtherapeutic, will monitor. (10) Full code status Current Visit: No Status: Acute Code(s): Z78.9 - OTHER SPECIFIED HEALTH STATUS SNOMED Code(s): 788234275 Status and Disposition: Patient is admitted inpatient. Anticipated discharge tomorrow.
[2017-07-31] MEDS: Famotidine TAB* 20 MG PO SCH (20:12)
[2017-08-01] MEDS: Omeprazole CAP* 20 MG PO SCH (06:08)
[2017-08-01 06:42] LABS: BUN/Creatinine Ratio 16.9 (8-20); Calcium 9.2 mg/dL (8.6-10.3); EGFR African American 135.1 (>60); EGFR Non-African American 105.1 (>60); Potassium 3.9 mmol/L (3.5-5.0)
[2017-08-01 06:48] LABS: Hematocrit 40 % (35-47); Hemoglobin 12.7 g/dl (12.0-16.0); Mean Corpuscular HGB Conc 31 g/dl (31-36); Mean Corpuscular Hemoglobin 27 pg (27-31); Mean Corpuscular Volume 86 fL (80-97); Mean Platelet Volume 10 um3 (7.4-10.4); Red Blood Count 4.71 10^6/ul (4.0-5.4); Red Cell Distribution Width 17 % (10.5-15); White Blood Count 6.3 10^3/ul (3.5-10.8)
[2017-08-01] MEDS: Metoprolol Tartrate TAB* 25 MG PO SCH (08:28)
[2017-08-01] MEDS: FERROUS GLUCONATE 240 MG PO SCH (08:28)
[2017-08-01] MEDS: Gabapentin CAP(*) 100 MG PO SCH ×2 (08:29→14:33)
[2017-08-01] MEDS: Nystatin TOP POWDER* 15 GM BTL TOPICAL SCH ×2 (08:30→14:34)
[2017-08-01 14:17] VITALS: BP 124/67
--- NOTE | 2017-08-02 06:33 | DS ---
CC: Dr. Serena Murillo; EDIE Jeffrey., neurosurgery * DISCHARGE SUMMARY: DATE OF ADMISSION: 07/30/17 DATE OF DISCHARGE: 08/01/17 PRIMARY CARE PROVIDER: Serena Murillo MD. MY ATTENDING WHILE IN THE HOSPITAL: Ken Monroe MD * (DICTATED BY EDIE YOUNG) PRIMARY DISCHARGE DIAGNOSIS: Pneumonia, community acquired. SECONDARY DISCHARGE DIAGNOSES: 1. History of pulmonary embolism. 2. Uterine bleeding. 3. Obstructive sleep apnea. 4. Obesity. 5. Gastroesophageal reflux disease. 6. Hypertension. 7. Left bundle-branch block. 8. Asthma. 9. Spinal stenosis, status post lumbar decompressive laminectomy and resection of nucleus pulposus. STUDIES DONE WHILE IN THE HOSPITAL: 1. Chest x-ray from 07/30/17 read as right upper lung atelectasis versus consolidation. Recommend followup until resolution to exclude underlying pulmonary and parenchymal pathology. 2. Electrocardiogram, 07/30/17, shows normal sinus rhythm, normal axis, no ST segment abnormalities, 1 PVC. No other abnormalities. QTc of 440. 3. EKG from 08/01/17 shows no significant abnormalities. 4. Venous Doppler study from 07/30/17 read as no right lower extremity deep vein thrombosis, no left lower extremity deep vein thrombosis. 5. 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 6. On review of CT scan, there was an infiltrate in the right upper lobe corresponding with infiltrate on chest x-ray, consistent with pneumonia. MEDICATIONS AT DISCHARGE: 1. Zantac 300 mg p.o. q.p.m. 2. Ferrous gluconate 240 mg p.o. daily. 3. [place] 1 to 2 tabs p.o. q.6 hours as needed for pain. 4. Warfarin 2 mg p.o. daily. 5. Albuterol inhaler 2 puffs inhalation q.4 hours as needed for wheezing or shortness of breath. 6. Metoprolol tartrate 12.5 mg p.o. q.12 hours. 7. Prilosec 20 mg p.o. daily. 8. Warfarin 6 mg p.o. daily. 9. Gabapentin 200 mg p.o. t.i.d. 10. Azithromycin 250 mg p.o. daily x3. 11. Cefpodoxime 200 mg p.o. q.12 hours x10. 12. Senna 1 tab p.o. daily as needed for constipation. New medications at discharge: 1. Azithromycin. 2. Cefpodoxime. 3. Senna. Medications discontinued at discharge: None. HOSPITAL COURSE: This is a brief summary of the patient's presentation. For more details, please see the history and physical from Seamus Aden NP., on . In brief, the patient is a 57-year-old female with past medical history significant as above, who is known to this author from her admission earlier this year to this hospital for lumbar radiculopathy and the above-mentioned laminectomy. The patient was following up with EDIE Jeffrey from neuro- surgery, as outpatient for symptoms of right-sided radiculopathy, minor in comparison to her left-sided radiculopathy. The patient mentioned to the PA that she has been having chest discomfort in the center of her chest. She has also had a dry persistent cough, worse with deep breath and coughing. The patient has slight temperature elevation. The patient denied productive cough. The patient had some rhinorrhea and sore throat and had just been not feeling well. The patient had the above studies done while in the ED and was diagnosed with community-acquired pneumonia, started on ceftriaxone and azithromycin. The patient improved somewhat overnight from 07/30/17 to 07/31/17. The patient' s Legionella antigen and Strep pneumo antigen were negative. The patient's flu swab was negative. The patient's troponins were negative. The patient was subtherapeutic slightly with her Coumadin. The patient continued to have chest pain consistent with her presentation on 07/30/17, otherwise she had no complaints such as shortness of breath or new productive cough. The patient continued to cough in a dry fashion. The patient complained of stable right leg numbness and occasional radicular pain shooting down her right leg. The patient also states that she felt like she dragged her leg while walking. The patient denied cauda equina symptoms such as saddle anesthesia or bowel or bladder incontinence. The patient's symptoms at this time consisted of right weakness with dorsiflexion, numbness on the lateral aspect of the right thigh, calf, and foot. These symptoms do not follow any strict anatomic pattern of deficits. The patient had no decreased reflexes. The patient's gait was abnormal. The patient was, however, able to walk significant distance with physical therapy and was not incapacitated by this issue. It was discussed with the patient that this would be an issue that is best followed as an outpatient with her neurosurgeon if she was in agreement with this plan. The patient had some chest tightness with a shortness of breath sensation in the evening of 07/31/17, and was given p.r.n. albuterol with good effect. On , the patient felt more congested and had a change in the character of her chest pain to become more sharp. This pain was reproducible with palpation and it was not anymore intense than her previous pain. EKG was negative for ischemic changes. This was believed to be due to chest wall pain probably secondary to coughing causing costochondritis. Hence, it was closely associated with the sternocostal joint. The patient's lab work was normal. The patient's vital signs were stable and the patient was in agreement to be sent home on 08/01/17. PHYSICAL EXAM ON THE DAY OF DISCHARGE: General: The patient is a 57-year-old female who appears stated age and sitting comfortably in a chair, in no acute distress. Vital Signs: At discharge, temperature 97.5, pulse rate 67, respiratory rate 20, oxygen saturation 94% on room air, blood pressure 124/67. HEENT: Head: Normocephalic, atraumatic. The patient had some rhinorrhea with edema of the nasal mucosa. Pharynx, nonerythematous. No post nasal drip noted. Oral mucosa moist. Neck: Supple, nontender, no lymphadenopathy. Thyroid goiter from CT, nonpalpable on exam. No carotid bruit auscultated. Cardiac: Regular rate and rhythm. No clicks, murmurs, gallops or rubs. Pulses 2+ in the bilateral dorsalis pedis, posterior tibial, and radial areas. No edema. Respiratory: Clear to auscultation bilaterally. No wheezes, rales, rhonchi. Good air exchange bilaterally. Abdomen: Soft, nontender, nondistended , obese. Exam is limited by body habitus. No palpable hepatosplenomegaly. No carotid bruits auscultated. Bowel sounds present, normoactive in all 4 quadrants. Genitourinary: No CVA tenderness or suprapubic tenderness. Skin: Clean, dry, intact. There is a well-healed surgical incision in the patient's lower back, consistent with previous decompressive laminectomy. Neuro: Cranial nerves II through XII grossly intact. No focal deficits. The patient has continued weakness with dorsiflexion of her right foot and neurologic deficits as stated above. The patient feels subjectively that these have substantially improved during her hospital stay. Psychiatric: The patient is pleasant and cooperative, but seems anxious about her discharge to home. DISCHARGE PLAN: The patient will be discharged to home. The patient has visiting nurse services and physical therapy. The patient should follow up with her primary care doctor within 1 week for general medical management. The patient should follow up with her neurosurgeon as soon as she can make an appointment for management of her possible right-sided lumbar radiculopathy. The patient should continue to work with physical therapy for strengthening exercises. The patient should take antibiotics as prescribed. The patient should return to the hospital for severely increased shortness of breath. The patient should take albuterol inhaler for mild shortness of breath or wheezing. The patient should return to the hospital for significantly increased chest pain with a change in the character of her chest pain. The patient should take warfarin as prescribed and have followup INRs as previously. ACTIVITY: As tolerated. DIET: Heart healthy, no caffeine. TIME SPENT: Approximately 60 minutes were spent on this discharge, 40 of which was spent [id number] with the patient obtaining history and physical and discussing the treatment plan. EDIE YOUNG [id number]/[facility] #: [id number] DIVINA
[2017-08-02] MEDS ORDERED: Azithromycin TAB* 250 MG PO SCH (09:00)
== END 2017-08-01 16:30 | disposition home or self-care (01) | DRG 139 ==
LOC: ED 12:31 → MEDTELE 14:19 → OBSVTOIN 07-31 13:29
PROVIDERS: ADMIT Internal Medicine; ATTEND Internal Medicine
DX: J18.8 Other pneumonia, unspecified organism (principal); Z68.44 Body mass index [BMI] 60.0-69.9, adult; E66.01 Morbid (severe) obesity due to excess calories; G47.33 Obstructive sleep apnea (adult) (pediatric); K21.9 Gastro-esophageal reflux disease without esophagitis; I10 Essential (primary) hypertension; I44.7 Left bundle-branch block, unspecified; J45.909 Unspecified asthma, uncomplicated; M48.00 Spinal stenosis, site unspecified; N93.9 Abnormal uterine and vaginal bleeding, unspecified; M54.16 Radiculopathy, lumbar region; Z86.711 Personal history of pulmonary embolism; Z79.01 Long term (current) use of anticoagulants; Z79.899 Other long term (current) drug therapy; Z91.018 Allergy to other foods; Z91.048 Other nonmedicinal substance allergy status; Z82.49 Family history of ischemic heart disease and other diseases of the circulatory system
CPT/HCPCS: 36415; 71010; 71275; 80048; 80053; 81003; 81015; 83605; 83735; 83880; 84484; 85025; 85379; 85610; 85730; 87040; 87070; 87086; 87205; 87502; 87899; 93005; 93970; 94640; A9270-GY; G0378; J0456; J0696; J2930; Q9967

== ENCOUNTER → 2017-08-11 12:15 | Emergency (ER) | payer OTHER ==
[~2017-08-11 12:15] MED LIST: Benzonatate CAP* 100 MG PO ONE
--- NOTE | 2017-08-11 13:01 | RAD ---
INDICATION: Shortness of breath. COMPARISON: CXR 07/30/17 TECHNIQUE: PA and lateral views of the chest were obtained. FINDINGS: The heart and mediastinum are normal in size and contour. The lungs are grossly clear. There is no evidence of large pleural effusion. Visualized bones are normal for the patient's age. There is no radiographic evidence of free air beneath the diaphragm IMPRESSION: No radiographic evidence of acute cardiopulmonary disease.
[2017-08-11 13:37] LABS: Hematocrit 43 % (35-47); Hemoglobin 13.7 g/dl (12.0-16.0); Mean Corpuscular HGB Conc 32 g/dl (31-36); Mean Corpuscular Hemoglobin 27 pg (27-31); Mean Corpuscular Volume 83 fL (80-97); Mean Platelet Volume 10 um3 (7.4-10.4); Red Blood Count 5.11 10^6/ul (4.0-5.4); Red Cell Distribution Width 17 % (10.5-15); White Blood Count 6.2 10^3/ul (3.5-10.8)
[2017-08-11 13:53] LABS: Albumin 3.5 g/dL (3.2-5.2); BUN/Creatinine Ratio 17.5 (8-20); C Reactive Protein 17.4 mg/L (< 5.00); Calcium 9.1 mg/dL (8.6-10.3); EGFR African American 140.6 (>60); EGFR Non-African American 109.3 (>60); Globulin 2.9 g/dL (2-4); Potassium 3.9 mmol/L (3.5-5.0); Total Bilirubin 0.7 mg/dL (0.2-1.0); Total Protein 6.4 g/dL (6.4-8.9)
[2017-08-11 14:48] VITALS: BP 108/78
--- NOTE | 2017-08-12 07:47 | ED ---
Shakeel Parra Angela, scribed for Raffaele Ariza MD on 08/11/17 at 1242 . Respiratory - HPI Summary HPI Summary: This pt is a 57 y/o female presenting to [facility] c/o productive cough, chest pressure, and SOB x2 days. Pt reports she was in the hospital 2 weeks ago for pneumonia, for 3 days. She notes that she was on 2 antibiotics and thought was getting better until 2 days ago. Pt describes her productive cough with agee/ yellow sputum. Pt denies fever. - History of Current Complaint Chief Complaint: EDShortnessOfBreath Stated Complaint: SOB Time Seen by Provider: 08/11/17 12:27 Hx Obtained From: Patient Onset/Duration: Lasting Days, Still Present Timing: Constant Pain Intensity: 6 Character: Cough (Productive) Sputum Amount: Small Sputum Color: Yellow, [place] Associated Signs and Symptoms: SOB, Chest Pain - chest pressure - Allergy/Home Medications Allergies/Adverse Reactions: Allergies Allergy/AdvReac Type Severity Reaction Status Date / Time Buckwheat Allergy Intermediate Rash Verified 06/04/17 03:11 Dust Mite Extract Allergy Intermediate Headache Verified 06/04/17 03:11 PMH/Surg Hx/FS Hx/Imm Hx Endocrine/Hematology History: Reports: Hx Anemia Denies: Hx Diabetes, Hx Unexplained Bleeding Cardiovascular History: Reports: Hx Angina, Hx Deep Vein Thrombosis, Hx Embolism , Hx Hypertension, 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; tricuspid gisele disease, Other Cardiovascular Problems/Disorders - left BBB, chronic edema Denies: Hx Aneurysm, Hx Angioplasty, Hx Auto Implanted Cardiovert Defib, Hx Cardiac Arrest, Hx Cardiomegaly, Hx Congenital Heart Disease, Hx Congestive Heart Failure, Hx Coronary Artery Disease, Hx Hypercholesterolemia, Hx Hypotension, Hx Myocardial Infarction, Hx Pacemaker/ICD, Hx Peripheral Vascular Disease, Hx Rheumatic Fever, Hx Syncope Respiratory History: Reports: Hx Asthma, Hx Pulmonary Embolism, Hx Sleep Apnea, Other Respiratory Problems/Disorders - PE hx 2004 liyah Denies: Hx Chronic Obstructive Pulmonary Disease (COPD) GI History: Reports: Hx Gall Bladder Disease - removed, Hx Gastroesophageal Reflux Disease, Other GI Disorders - stomach stapled History: Denies: Hx Renal Disease Musculoskeletal History: Reports: Hx Back Problems, Other Musculoskeletal History - chronic knee pain Sensory History: Reports: Hx Contacts or Glasses Denies: Hx Cataracts, Hx Eye Injury, Hx Eye Prosthesis, Hx Glaucoma, Hx Legally Blind, Hx Macular Degeneration, Hx Vision Problem, Hx Hearing Aid, Other Sensory Impairments Opthamlomology History: Reports: Hx Contacts or Glasses Denies: Hx Cataracts, Hx Eye Injury, Hx Eye Prosthesis, Hx Glaucoma, Hx Legally Blind, Hx Macular Degeneration, Hx Vision Problem, Other Sensory Impairments Neurological History: Denies: Other Neuro Impairments/Disorders Psychiatric History: Denies: Hx Panic Disorder - Surgical History Surgery Procedure, Year, and Place: CARDIAC CATH, TONSILECTOMY, , RIGHT ABD HERNIA REPAIR X3, STOMACH STAPLING, CHOLECYSTECTOMY - Immunization History Date of Tetanus Vaccine: Unk Date of Influenza Vaccine: None Infectious Disease History: No Infectious Disease History: Denies: Hx Clostridium Difficile, Hx Hepatitis, Hx Human Immunodeficiency Virus (HIV), Hx of Known/Suspected MRSA, Hx Shingles, Hx Tuberculosis, Hx Known/ Suspected VRE, Hx Known/Suspected VRSA, History Other Infectious Disease, Traveled Outside the [place] in Last 30 Days - Family History Known Family History: Positive: Cardiac Disease - father with MS and in 80's, Hypertension - father - Social History Alcohol Use: None Hx Substance Use: No Substance Use Type: Reports: None Hx Tobacco Use: Yes Smoking Status (MU): Former Smoker Type: Cigarettes Have You Smoked in the Last Year: No Review of Systems Negative: Fever, Chills Cardiovascular: Other - chest pressure Positive: Shortness Of Breath, Cough All Other Systems Reviewed And Are Negative: Yes Physical Exam - Summary Physical Exam Summary: VITAL SIGNS: Reviewed. GENERAL: Patient is an obese female who is lying comfortable in the stretcher. Patient is not in any acute respiratory distress. HEAD AND FACE: No signs of trauma. No ecchymosis, hematomas or skull depressions. No sinus tenderness. EYES: PERRLA, EOMI x 2, No injected conjunctiva, no nystagmus. EARS: Hearing grossly intact. Ear canals and tympanic membranes are within normal limits. MOUTH: Oropharynx within normal limits. NECK: Supple, trachea is midline, no adenopathy, no JVD, no carotid bruit, no c- spine tenderness, neck with full ROM. CHEST: Symmetric, no tenderness at palpation LUNGS: Clear to auscultation bilaterally. No wheezing or crackles. CVS: Regular rate and rhythm, S1 and S2 present, no murmurs or gallops appreciated. ABDOMEN: Soft, non-tender. No signs of distention. No rebound no guarding, and no masses palpated. Bowel sounds are normal. EXTREMITIES: FROM in all major joints, no edema, no cyanosis or clubbing. NEURO: Alert and oriented x 3. No acute neurological deficits. Speech is normal and follows commands. SKIN: Dry and warm Triage Information Reviewed: Yes Vital Signs On Initial Exam: Initial Vitals Temp Pulse Resp BP Pulse Ox 98.9 F 80 17 124/62 96 08/11/17 12:25 08/11/17 12:25 08/11/17 12:25 08/11/17 12:25 08/11/17 12:25 Vital Signs Reviewed: Yes Diagnostics - Vital Signs Vital Signs Temp Pulse Resp BP Pulse Ox 08/11/17 12:30 80 18 124/62 94 08/11/17 12:28 90 94 08/11/17 12:26 131/69 08/11/17 12:25 98.9 F 80 17 124/62 96 - Laboratory Result Diagrams: 08/11/17 13:20 08/11/17 13:20 Lab Statement: Any lab studies that have been ordered have been reviewed, and results considered in the medical decision making process. - Radiology Chest XR Xray Interpretation: No Acute Changes - IMPRESSION: No radiographic evidence of acute cardiopulmonary disease. ED physician has reviewed this radiology report and agrees. Radiology Interpretation Completed By: Radiologist - EKG 1301 Cardiac Rate: NL EKG Rhythm: Sinus Rhythm - at 77 bpm EKG Interpretation: No ST elevation. Occasional PVCs Re-Evaluation - Re-Evaluation First Eval Re-Evaluation Time: 14:28 Comment: I reviewed the chest XR results with the pt. Disposition - Course Assessment/Plan: This pt is a 57 y/o female presenting to [facility] c/o productive cough, chest pressure, and SOB x2 days. Pt reports she was in the hospital 2 weeks ago for pneumonia, for 3 days. She notes that she was on 2 antibiotics and thought was getting better until 2 days ago. Pt describes her productive cough with agee/yellow sputum. Pt denies fever. Test results without any significant abnormalities. Chest XR shows no pneumonia. I believe symptoms are secondary to a dry cough. Therefore the pt was given tessalon tablets. Pt will be discharged home with follow up from her PCP. Pt is hemodynamically stable, alert and oriented x3. - Diagnoses Provider Diagnoses: Cough Discharge - Discharge Plan Condition: Stable Disposition: HOME Prescriptions: Benzonatate CAP* [Tessalon 100 MG CAP*] 100 mg PO TID PRN #9 cap PRN Reason: Cough Patient Education Materials: Acute Cough (ED) Referrals: Serena Murillo MD [Primary Care Provider] - Additional Instructions: Please follow up with your primary care provider. RETURN TO THE ED FOR ANY WORSENING SYMPTOMS. The documentation as recorded by the Shakeel steve Angela accurately reflects the service I personally performed and the decisions made by To morales Walter, MD.
== END | disposition home or self-care (01) ==
LOC: ED 12:15
DX: R05 Cough (principal); R06.02 Shortness of breath; R07.9 Chest pain, unspecified; Z87.891 Personal history of nicotine dependence
CPT/HCPCS: 36415; 71020; 80053; 82550; 83880; 84484; 85025; 86140; 93005; 99283; A9270-GY

== ENCOUNTER 2017-09-01 06:43 | Observation (INO) | payer OTHER ==
[2017-09-01] MEDS ORDERED: NS 0.9% 1000 ML* 1,000 ML IV ONE (08:46)
--- NOTE | 2017-09-01 08:57 | RAD ---
Indication: Neck injury. CT of the cervical spine was obtained in the axial plane. Sagittal and coronal reconstructed images were obtained. The study is limited by the patient's body habitus. The skull base demonstrates no fracture. Mastoid air cells are unremarkable. Overall the vertebral bodies appear normal in height and alignment. No definite compression fracture is noted. A subtle fracture in the lamina or posterior elements cannot totally be excluded but one is not visualized. Degenerative disc disease at C3-C4, C4-C5, C5-C6 is noted. IMPRESSION: Very limited cervical spine CT due to patient's body habitus. No obvious fracture is noted. Degenerative disc disease at multiple levels.
--- NOTE | 2017-09-01 08:58 | RAD ---
Indication: Fell and hit head on door. Neck and back pain. On Coumadin. Comparison: February 27, 2009 CT. Technique: Noncontrast CT vertex of skull through foramen magnum. Report: Large body habitus limits image quality. No intra or extra-axial hemorrhage evident. No significant change in mild prominence of the subarachnoid spaces over the bilateral nondependent portions of the cerebral hemispheres. Unremarkable cerebral sulci, ventricles, and basal cisterns. No gross sharp matter white matter obscuration evident with low image quality limiting sensitivity. Negative for calvarial or skull base fracture. Negative for scalp hematoma. IMPRESSION: Limited exam due to large body habitus without compelling evidence for intracranial hemorrhage or other acute intracranial abnormality.
--- NOTE | 2017-09-01 08:59 | RAD ---
INDICATION: Trauma, back pain history of lumbar surgery. COMPARISON: Comparison is made with a prior CT of the lumbar spine from June 06, 2017. TECHNIQUE: Contiguous axial sections were obtained beginning above the T12 vertebra and continuing through the L5-S1 disc space. Images were reconstructed in the sagittal and coronal planes. The exam is limited due to the patient's body habitus. FINDINGS: There is a [id number] lumbar scoliosis convex toward the left side. No fracture is seen. At the L2-L3 level there is mild posterior endplate spurring and mild hypertrophic changes within the facet joints. No significant spinal canal narrowing is appreciated. Neural foramen appear patent on both sides. At the L3-L4 level there is moderate posterior endplate spurring and moderate hypertrophic changes within the facet joints. There appears to be at least moderate spinal canal narrowing and mild to moderate bilateral neural foraminal narrowing. At the L4-L5 level there is a mild broad-based disc bulge. The patient is status post laminectomy. There is mild spinal canal narrowing. There appears to be moderate bilateral neural foraminal narrowing. At the L5-S1 level there is a mild broad-based disc bulge. There are severe hypertrophic changes within the facet joints. No significant spinal canal narrowing is seen. There is mild to moderate bilateral neural foraminal narrowing. There is a 3.7 cm hypodense lesion arising from the inferior pole of the right kidney likely representing a cyst although cannot be evaluated on this noncontrast limited study. IMPRESSION: 1. LIMITED STUDY. 2. NO EVIDENCE FOR ACUTE FRACTURE. 3. POST SURGICAL CHANGES. 4. DIFFUSE DEGENERATIVE DISC DISEASE AND FACET OSTEOARTHRITIS.
--- NOTE | 2017-09-01 09:12 | RAD ---
Indication: Diarrhea and weakness. CT of the abdomen and pelvis was performed without oral or IV contrast menstruation. Coronal and sagittal reconstructed images were obtained. The lung bases demonstrate no pleural fluid, nodules or masses. Heart is of normal size without evidence of pericardial effusion. The liver is normal in size. No focal lesions or intrahepatic ductal dilatation is noted. The patient is status post cholecystectomy. The pancreas demonstrates no mass or pancreatic ductal dilatation. The spleen is enlarged. No adrenal lesions are noted. The kidneys demonstrate no hydronephrosis. Atherosclerotic aorta is noted. There are moderately dilated loops of bowel noted. There are collapsed distal loops of small bowel noted. The possibility of a partial small bowel obstruction should be considered. CT of the pelvis demonstrates no retroperitoneal or pelvic lymphadenopathy. There appears to be an IUD in place. Surgical clips are noted in the right lower quadrant. Multiple foci of free air is noted in the peritoneum especially in the left upper quadrant. The possibility of a viscus perforation cannot be ruled out although no free fluid is identified. IMPRESSION: Moderately distended loops of small bowel with collapsed distal loops. The possibility of a partial small bowel obstruction should be considered. There are small foci of free air scattered throughout the peritoneal cavity most of which is noted in the predominantly left upper quadrant. Findings were discussed with Dr. Germain at 8:45 AM.
[2017-09-01 09:39] LABS: Hematocrit 43 % (35-47); Hemoglobin 13.9 g/dl (12.0-16.0); Mean Corpuscular HGB Conc 32 g/dl (31-36); Mean Corpuscular Hemoglobin 27 pg (27-31); Mean Corpuscular Volume 84 fL (80-97); Mean Platelet Volume 10 um3 (7.4-10.4); Red Blood Count 5.13 10^6/ul (4.0-5.4); Red Cell Distribution Width 16 % (10.5-15); White Blood Count 7.1 10^3/ul (3.5-10.8)
--- NOTE | 2017-09-01 09:44 | RAD ---
INDICATION: Left ankle injury. TECHNIQUE: 3 views of the left ankle were obtained. FINDINGS: There is diffuse soft tissue swelling. The bones are in normal alignment. No fracture is seen. IMPRESSION: SOFT TISSUE SWELLING, NO FRACTURE IS SEEN.
[2017-09-01 09:50] LABS: Albumin 3.6 g/dL (3.2-5.2); BUN/Creatinine Ratio 17.2 (8-20); C Reactive Protein 23.31 mg/L (< 5.00); Calcium 9.4 mg/dL (8.6-10.3); EGFR African American 137.8 (>60); EGFR Non-African American 107.2 (>60); Magnesium 1.9 mg/dL (1.9-2.7); Potassium 3.8 mmol/L (3.5-5.0); Total Bilirubin 0.7 mg/dL (0.2-1.0); Total Protein 6.6 g/dL (6.4-8.9)
[2017-09-01] MEDS ORDERED: oxyCODONE/Acetamin 5/325 MG* TAB PO ONE (09:56)
--- NOTE | 2017-09-01 10:48 | ED ---
Janette Parra Edward, scribed for Tamir Germain MD on 09/01/17 at 0705 . Back Pain - HPI Summary HPI Summary: 57 y/o female BIBA c/o immediate onset back pain s/p fall earlier tonight. Associated sx: L ankle and neck pain, bilateral leg weakness. The neck pain is located in the middle of the back of the neck. During the fall pt hit the back of her head. Denies [place] now. Pt was in the bathroom with diarrhea (initially starting 3 days ago) and lost her balance and fell while getting up. Pt crawled out of the bathroom into her bedroom and called the ambulance. Associated sx: chills, nausea. Sx back surgery in 2016 to repair a crushed disc, hernias removed in ABD, gastric bypass, gall bladder removal. Denies numbness/tingling in the legs, denies ABD pain. Pt normally uses a walker and a wheelchair at home. - History of Current Complaint Chief Complaint: EDBackInjuryPain Stated Complaint: FALL Hx Obtained From: Patient Hx Last Menstrual Period: N/A Onset/Duration: Sudden Onset, Lasting Hours Onset/Duration: Started Hours Ago, Still Present Timing: Constant Severity Initially: Severe Severity Currently: Severe Pain Intensity: 8 Pain Scale Used: 0-10 Numeric Aggravating Symptom(s): Movement Alleviating Symptom(s): Nothing Associated Signs And Symptoms: Positive: Weakness - bilateral leg, Other - neck pain, L ankle pain - Allergies/Home Medications Allergies/Adverse Reactions: Allergies Allergy/AdvReac Type Severity Reaction Status Date / Time Buckwheat Allergy Intermediate Rash Verified 06/04/17 03:11 Dust Mite Extract Allergy Intermediate Headache Verified 06/04/17 03:11 Home Medications: Home Medications Omeprazole CAP* [Prilosec CAP* 20 MG] 20 mg PO DAILY 09/01/17 [History Confirmed 09/01/17] Warfarin TAB(*) [Coumadin TAB(*)] 5 mg PO DAILY 09/01/17 [History Confirmed ] PMH/Surg Hx/FS Hx/Imm Hx Previously Healthy: No Endocrine/Hematology History: Reports: Hx Anemia Denies: Hx Diabetes, Hx Unexplained Bleeding Cardiovascular History: Reports: Hx Angina, Hx Deep Vein Thrombosis, Hx Embolism , Hx Hypertension, 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; tricuspid gisele disease, Other Cardiovascular Problems/Disorders - left BBB, chronic edema Denies: Hx Aneurysm, Hx Angioplasty, Hx Auto Implanted Cardiovert Defib, Hx Cardiac Arrest, Hx Cardiomegaly, Hx Congenital Heart Disease, Hx Congestive Heart Failure, Hx Coronary Artery Disease, Hx Hypercholesterolemia, Hx Hypotension, Hx Myocardial Infarction, Hx Pacemaker/ICD, Hx Peripheral Vascular Disease, Hx Rheumatic Fever, Hx Syncope Respiratory History: Reports: Hx Asthma, Hx Pulmonary Embolism, Hx Sleep Apnea, Other Respiratory Problems/Disorders - PE hx 2005 liyah Denies: Hx Chronic Obstructive Pulmonary Disease (COPD) GI History: Reports: Hx Gall Bladder Disease - removed, Hx Gastroesophageal Reflux Disease, Other GI Disorders - stomach stapled History: Denies: Hx Renal Disease Musculoskeletal History: Reports: Hx Back Problems, Other Musculoskeletal History - chronic knee pain Sensory History: Reports: Hx Contacts or Glasses Denies: Hx Cataracts, Hx Eye Injury, Hx Eye Prosthesis, Hx Glaucoma, Hx Legally Blind, Hx Macular Degeneration, Hx Vision Problem, Hx Hearing Aid, Other Sensory Impairments Opthamlomology History: Reports: Hx Contacts or Glasses Denies: Hx Cataracts, Hx Eye Injury, Hx Eye Prosthesis, Hx Glaucoma, Hx Legally Blind, Hx Macular Degeneration, Hx Vision Problem, Other Sensory Impairments Neurological History: Denies: Other Neuro Impairments/Disorders Psychiatric History: Denies: Hx Panic Disorder - Surgical History Surgery Procedure, Year, and Place: CARDIAC CATH, TONSILECTOMY, , RIGHT ABD HERNIA REPAIR X3, STOMACH STAPLING, CHOLECYSTECTOMY - Immunization History Date of Tetanus Vaccine: Unk Date of Influenza Vaccine: None Infectious Disease History: No Infectious Disease History: Denies: Hx Clostridium Difficile, Hx Hepatitis, Hx Human Immunodeficiency Virus (HIV), Hx of Known/Suspected MRSA, Hx Shingles, Hx Tuberculosis, Hx Known/ Suspected VRE, Hx Known/Suspected VRSA, History Other Infectious Disease, Traveled Outside the [place] in Last 30 Days - Family History Known Family History: Positive: Cardiac Disease - father with [place] and in 80's, Hypertension - father - Social History Alcohol Use: None Hx Substance Use: No Substance Use Type: Reports: None Hx Tobacco Use: Yes Smoking Status (MU): Former Smoker Type: Cigarettes Have You Smoked in the Last Year: No Review of Systems Positive: Chills Eyes: Negative ENT: Negative Cardiovascular: Negative Respiratory: Negative Positive: Diarrhea, Nausea. Negative: Abdominal Pain Genitourinary: Negative Positive: Arthralgia - L ankle pain, neck pain, Myalgia - Back pain Skin: Negative Positive: Weakness - Bilateral leg Psychological: Normal All Other Systems Reviewed And Are Negative: Yes Physical Exam Triage Information Reviewed: Yes Vital Signs On Initial Exam: Initial Vitals Temp Pulse Resp BP Pulse Ox 98.6 F 87 18 123/71 94 09/01/17 06:47 09/01/17 06:47 09/01/17 06:47 09/01/17 06:47 09/01/17 06:47 Vital Signs Reviewed: Yes Appearance: Positive: Well-Appearing, Pain Distress - Mild Skin: Positive: Warm, Skin Color Reflects Adequate Perfusion, Dry, Other - 1 cm abrasion @ L ankle Head/Face: Positive: Normal Head/Face Inspection Eyes: Positive: EOMI, ARELY ENT: Positive: Normal ENT inspection Dental: Positive: Other - Oral mucosa moist Neck: Positive: Supple, Tenderness @ - posterior neck Respiratory/Lung Sounds: Positive: Clear to Auscultation, Breath Sounds Present Cardiovascular: Positive: RRR Abdomen Description: Positive: Nontender, Soft Bowel Sounds: Positive: Present Musculoskeletal: Positive: Strength/ROM Intact, Pain @ - back with leg raise, Edema Left - L ankle swollen laterally Neurological: Positive: Normal, Sensory/Motor Intact, Alert, Oriented to Person Place, Time Psychiatric: Positive: Affect/Mood Appropriate - Santiago Coma Scale Coma Scale Total: 15 Diagnostics - Vital Signs Vital Signs Temp Pulse Resp BP Pulse Ox 09/01/17 06:47 98.6 F 87 18 123/71 94 - Laboratory Lab Results: Lab Results 09/01/17 09/01/17 09/01/17 Range/Units 09:25 09:25 09:25 WBC 7.1 (3.5-10.8) 10^3/ul RBC 5.13 (4.0-5.4) 10^6/ul Hgb 13.9 (12.0-16.0) g/dl Hct 43 (35-47) % MCV 84 (80-97) fL MCH 27 (27-31) pg MCHC 32 (31-36) g/dl RDW 16 H (10.5-15) % Plt Count 214 (150-450) 10^3/ul MPV 10 (7.4-10.4) um3 Neut % (Auto) 75.9 (38-83) % Lymph % (Auto) 13.5 L (25-47) % [place] % (Auto) 6.3 (1-9) % Eos % (Auto) 3.4 (0-6) % Baso % (Auto) 0.9 (0-2) % Absolute Neuts (auto) 5.4 (1.5-7.7) 10^3/ul Absolute Lymphs (auto) 1.0 (1.0-4.8) 10^3/ul Absolute Monos (auto) 0.4 (0-0.8) 10^3/ul Absolute Eos (auto) 0.2 (0-0.6) 10^3/ul Absolute Basos (auto) 0.1 (0-0.2) 10^3/ul Absolute Nucleated RBC 0.01 10^3/ul Nucleated RBC % 0.1 INR (Anticoag Therapy) 2.51 H (0.77-1.02) APTT 55.8 H (26.0-36.3) seconds Sodium 139 (133-145) mmol/L Potassium 3.8 (3.5-5.0) mmol/L Chloride 103 (101-111) mmol/L Carbon Dioxide 31 (22-32) mmol/L Anion Gap 5 (2-11) mmol/L BUN 10 (6-24) mg/dL Creatinine 0.58 (0.51-0.95) mg/dL Est GFR ( Amer) 137.8 (>60) Est GFR (Non-Af Amer) 107.2 (>60) BUN/Creatinine Ratio 17.2 (8-20) Glucose 112 H (70-100) mg/dL Lactic Acid (0.5-2.0) mmol/L Calcium 9.4 (8.6-10.3) mg/dL Magnesium 1.9 (1.9-2.7) mg/dL Total Bilirubin 0.70 (0.2-1.0) mg/dL AST 20 (13-39) U/L ALT 19 (7-52) U/L Alkaline Phosphatase 65 (34-104) U/L C-Reactive Protein 23.31 H (< 5.00) mg/L Total Protein 6.6 (6.4-8.9) g/dL Albumin 3.6 (3.2-5.2) g/dL Globulin 3.0 (2-4) g/dL Albumin/Globulin Ratio 1.2 (1-3) Lipase 20 (11.0-82.0) U/L 09/01/17 Range/Units 09:25 WBC (3.5-10.8) 10^3/ul RBC (4.0-5.4) 10^6/ul Hgb (12.0-16.0) g/dl Hct (35-47) % MCV (80-97) fL MCH (27-31) pg MCHC (31-36) g/dl RDW (10.5-15) % Plt Count (150-450) 10^3/ul MPV (7.4-10.4) um3 Neut % (Auto) (38-83) % Lymph % (Auto) (25-47) % [place] % (Auto) (1-9) % Eos % (Auto) (0-6) % Baso % (Auto) (0-2) % Absolute Neuts (auto) (1.5-7.7) 10^3/ul Absolute Lymphs (auto) (1.0-4.8) 10^3/ul Absolute Monos (auto) (0-0.8) 10^3/ul Absolute Eos (auto) (0-0.6) 10^3/ul Absolute Basos (auto) (0-0.2) 10^3/ul Absolute Nucleated RBC 10^3/ul Nucleated RBC % INR (Anticoag Therapy) (0.77-1.02) APTT (26.0-36.3) seconds Sodium (133-145) mmol/L Potassium (3.5-5.0) mmol/L Chloride (101-111) mmol/L Carbon Dioxide (22-32) mmol/L Anion Gap (2-11) mmol/L BUN (6-24) mg/dL Creatinine (0.51-0.95) mg/dL Est GFR ( Amer) (>60) Est GFR (Non-Af Amer) (>60) BUN/Creatinine Ratio (8-20) Glucose (70-100) mg/dL Lactic Acid 0.9 (0.5-2.0) mmol/L Calcium (8.6-10.3) mg/dL Magnesium (1.9-2.7) mg/dL Total Bilirubin (0.2-1.0) mg/dL AST (13-39) U/L ALT (7-52) U/L Alkaline Phosphatase (34-104) U/L C-Reactive Protein (< 5.00) mg/L Total Protein (6.4-8.9) g/dL Albumin (3.2-5.2) g/dL Globulin (2-4) g/dL Albumin/Globulin Ratio (1-3) Lipase (11.0-82.0) U/L Result Diagrams: 09/01/17 09:25 09/01/17 09:25 Lab Statement: Any lab studies that have been ordered have been reviewed, and results considered in the medical decision making process. - Radiology ANKLE XR Xray Interpretation: No Acute Changes - SOFT TISSUE SWELLING, NO FRACTURE IS SEEN. Radiology Interpretation Completed By: Radiologist - ED PHYSICIAN REVIEWS AND AGREES - CT C SPINE CT CT Interpretation: No Acute Changes - Very limited cervical spine CT due to patient's body habitus. No obvious fracture is noted. Degenerative disc disease at multiple levels. CT Interpretation Completed By: Radiologist - ED PHYSICIAN REVIEWS AND AGREES BRAIN CT CT Interpretation: No Acute Changes - Limited exam due to large body habitus without compelling evidence for intracranial hemorrhage or other acute intracranial abnormality. CT Interpretation Completed By: Radiologist - ED PHYSICIAN REVIEWS AND AGREES LUMBAR SPINE CT CT Interpretation: No Acute Changes - 1. LIMITED STUDY. 2. NO EVIDENCE FOR ACUTE FRACTURE. 3. POST SURGICAL CHANGES. 4. DIFFUSE DEGENERATIVE DISC DISEASE AND FACET OSTEOARTHRITIS. CT Interpretation Completed By: Radiologist - ED PHYSICIAN REVIEWS AND AGREES ABD/PEL CT CT Interpretation: Positive (See Comments) - Moderately distended loops of small bowel with collapsed distal loops. The possibility of a partial small bowel obstruction should be considered. There are small foci of free air scattered throughout the peritoneal cavity most of which is noted in the predominantly left upper quadrant. Findings were discussed with Dr. Germain at 8:[address] Interpretation Completed By: Radiologist - ED PHYSICIAN REVIEWS AND AGREES Back Pain Course/Dx - Course Course Of Treatment: POSSIBLE SBO AND FREE AIR ON CT ABD/PELVIS. PATIENT HAS DIARRHEA BUT, DENIES ABD PAIN. DISCUSSED RESULTS WITH PATIENT. ADMIT HOSPITALIST. NO CRITICAL CARE TIME. - Diagnoses Provider Diagnoses: Low back pain, Left ankle sprain, Diarrhea - Provider Notifications Discussed Care Of Patient With: Michele Anne Time Discussed With Above Provider: 09:25 Instructed by Provider To: Admit As Inpatient Discharge - Discharge Plan Condition: Stable Disposition: ADMITTED TO [facility] Referrals: Serena Murillo MD [Primary Care Provider] - The documentation as recorded by the Janette steve Edward accurately reflects the service I personally performed and the decisions made by me, Tamir Germain MD.
[2017-09-01] MEDS ORDERED: HYDROcodone/ACETAMIN 5-325 MG* 1 TAB PO PRN ×2 (12:26→12:30)
[2017-09-01] MEDS ORDERED: Albuterol HFA INHALER* 8 gm MDI INH PRN (12:26)
[2017-09-01] MEDS ORDERED: NS 0.9% 1000 ML* 1,000 ML IV SCH (12:30)
[2017-09-01] MEDS ORDERED: Ondansetron INJ* 2 MG/ML VIAL IV PRN (12:30)
[2017-09-01] MEDS: Gabapentin CAP(*) 300 MG PO SCH ×2 (13:52→20:28)
[2017-09-01] MEDS ORDERED: Warfarin TAB(*) 5 MG PO SCH (17:00)
--- NOTE | 2017-09-01 17:44 | HP ---
CC: Serena Murillo MD * HISTORY AND PHYSICAL: DATE OF ADMISSION: 09/01/17 PRIMARY CARE PROVIDER: Serena Murillo MD ATTENDING PHYSICIAN: Jimy Anne MD * (dictated by Malgorzata Vargas NP). CHIEF COMPLAINT: Diarrhea, and slipped and fell in the bathroom hitting head. HISTORY OF PRESENT ILLNESS: Ms. Jain is a 57-year-old female with past medical history significant for pulmonary embolus on chronic anticoagulation, abnormal uterine bleeding, LUIS ANTONIO, obesity, GERD, hypertension, left bundle-branch block, asthma, who presents to the emergency room with complaints of diarrhea for approximately 3 to 4 days, who slipped on her bathroom floor hitting her head. She denies any loss of consciousness, dizziness, or visual disturbances. She was able to crawl to the bedroom to use the phone to call for EMS. The patient reported neck, back, and right ankle pain after her fall. She denies any recent fevers, chest pain, shortness of breath, or abdominal pain. The patient reports chills since yesterday. She reports a cough since she was diagnosed with bronchitis a little over a week ago. The patient states that she completed a course of azithromycin and that after completing the azithromycin, she noticed that she developed diarrhea. The patient denies any urinary symptoms such as urinary urgency, frequency or dysuria. She does note that she generally has some lightheadedness when she first gets up in the morning, but that resolves after she sits on the side of the bed and waits a few minutes. The patient was brought to the emergency room by EMS for further evaluation. While in the emergency room, the patient received normal saline and Percocet. She had an abdomen and pelvis CT showing a moderately distended loops of small bowel with collapsed distal loops, a possible partial bowel obstruction and some free air scattered throughout her abdomen. She had a left ankle x-ray showing soft tissue swelling and no signs of a fracture. She also had a head CT showing no acute abnormalities. She had labs that were unremarkable with the exception of an elevated CRP at 23.31. She had no leukocytosis, was afebrile. The hospitalists were asked to evaluate the patient for admission. PAST MEDICAL HISTORY: 1. Pulmonary embolus, on chronic anticoagulation. 2. Uterine bleeding. 3. Obstructive sleep apnea. 4. Obesity. 5. GERD. 6. Hypertension. 7. Left bundle-branch block. 8. Asthma. 9. Spinal stenosis. PAST SURGICAL HISTORY: 1. Status post L4-5 decompressive laminectomy. 2. Status post hernia repair. 3. Cholecystectomy. 4. Tonsillectomy. 5. section. 6. Vertical banding gastroplasty. HOME MEDICATIONS: Include: 1. Warfarin 5 mg oral daily. 2. Zantac 300 mg oral every evening. 3. Omeprazole 20 mg oral daily. 4. Ferrous gluconate 240 mg daily. 5. Metoprolol tartrate 12.5 mg oral every 12 hours. 6. Hydrocodone/acetaminophen 5/325, 1 to 2 tablets oral every 6 hours as needed for pain. 7. Gabapentin 300 mg oral 3 times daily. 8. Albuterol HFA inhaler 2 puffs inhalation every 4 hours as needed for shortness of breath or wheeze. ALLERGIES: 1. BUCKWHEAT. 2. DUST MITES. FAMILY HISTORY: The patient's father had a history of coronary artery disease. She had a paternal aunt with a history of lung cancer and a paternal cousin with a history of lung cancer. She denies any family history of diabetes mellitus. SOCIAL HISTORY: The patient denies alcohol, tobacco, or recreational drug use. The patient's daughter, Funmi, will be surrogate decision maker in the event she is unable to make decisions for herself. PHYSICAL EXAMINATION GENERAL APPEARANCE: The patient is alert, pleasant and appears to be in no acute distress. VITAL SIGNS: Temperature 98.6, heart rate 80, respiratory rate 16, O2 sat 97% on room air, blood pressure 130/63. HEENT: Normocephalic, atraumatic. Pupils are equal and reactive to light. Extraocular movements are intact. RESPIRATORY: There is no accessory muscle use and the lungs are clear to auscultation bilaterally. CARDIOVASCULAR: Regular rate and rhythm. S1 and S2 present. There is no murmurs, rubs, or gallops heard. ABDOMEN: Soft, obese with diffuse tenderness most notably in the left lower quadrant and right upper quadrant. There are bowel sounds present x4. EXTREMITIES: The patient has mild left ankle edema. DP and PT pulses are 2+ and symmetric. MUSCULOSKELETAL: There is no clubbing or cyanosis noted. The patient exhibits good strength in all extremities. NEUROLOGICAL: The patient is alert and oriented x4. Cranial nerves II through XII are grossly intact. PSYCHOLOGICAL: The patient is calm and cooperative. SKIN: There are no rashes or abnormalities seen. DIAGNOSTIC STUDIES/LABORATORY DATA: Sodium 139, potassium 3.8, chloride 103, CO2 31, BUN 10, creatinine 0.58, glucose 112. White blood cell count 7.1, hemoglobin 13.9, hematocrit 43, platelet count 214,000. INR 2.51. CRP 23.31. 1. Abdomen and pelvis CT from today. Radiologist's impression: Moderately distended loops of small bowel with collapsed distal loops. The possibility of a partial small bowel obstruction should be considered. There is a small foci of free air scattered throughout the peritoneal cavity, most of which is noted in the predominantly left upper quadrant. 2. Left ankle x-ray from today. Radiologist's impression: Soft tissue swelling. No fracture is seen. 3. Brain CT from today. Radiologist's impression: Limited exam due to large body habitus without compelling evidence for intracranial hemorrhage or other acute intracranial abnormalities. 4. Cervical spine CT from today. Radiologist's impression: Very limited cervical spine CT due to the patient's body habitus. No obvious fractures noted. Degenerative disk disease at multiple levels. 5. Lumbar CT from today: Radiologist's impression: Limited study. No evidence for acute fracture. Postsurgical changes. Diffuse degenerative disk disease and facet osteoarthritis. IMPRESSION: Ms. Jain is a 57-year-old female with past medical history significant for pulmonary embolus on chronic anticoagulation, uterine bleeding, obstructive sleep apnea, obesity, gastroesophageal reflux disease, hypertension , left bundle-branch block, asthma, spinal stenosis, who presents to the emergency room with complaints of diarrhea and slipping and falling in her bathroom today. She will be admitted as OBV for diarrhea. ASSESSMENT/PLAN: 1. Diarrhea. I suspect this could be secondary to the patient's antibiotic use. We will check a C. diff, get a stool culture. I am concerned by the patient's CT scan that shows that she has some free air. I have asked General Surgery to consult on the patient to eval the free air. For now, she will be on a clear liquid diet. We will give her IV fluids. 2. History of pulmonary embolus. The patient will be continued on her home warfarin. She currently has a therapeutic INR. 3. History of dysfunctional uterine bleeding. The patient follows with Dr. Raines with [facility]. She reports that her uterine bleeding has decreased and she had an IUD placed over the summer. She has decreased from 4-week menses down to 2-week menses. 4. Obstructive sleep apnea. The patient is noncompliant with CPAP. 5. Gastroesophageal reflux disease. The patient will be continued on her home PPI therapy. 6. Hypertension. The patient will be continued on her home metoprolol. 7. Asthma. The patient will have albuterol as needed. There were no signs of an acute asthma exacerbation at this time. 8. History of left bundle-branch block. 9. History of spinal stenosis. The patient is status post an L4-5 decompressive laminectomy a few months ago. We will continue her home medication regimen. 10. Fluids, electrolytes and nutrition. Clear liquid diet. 11. Code status. Full code. 12. DVT prophylaxis. The patient is at highest risk and she will be continued on her home warfarin. 13. Disposition. Inpatient. TIME SPENT: Time spent for this admission was approximately 60 minutes, greater than half of that was spent with the patient discussing medications, past medical history and the events leading up to her arrival today and performing a physical examination. Reviewed by RACHEL BURGOS 09/07/17 1910 [id number] #: [id number] DIVINA
[2017-09-01] MEDS ORDERED: Famotidine TAB* 20 MG PO SCH (18:00)
--- NOTE | 2017-09-01 19:16 | CONS ---
CC: Dr. Serena Murillo * SURGICAL CONSULTATION REPORT: DATE OF CONSULT: 09/01/17 HISTORY OF PRESENT ILLNESS: I was contacted by the hospitalist service to evaluate Ms. Jain, a 57-year-old female, who was admitted to the hospitalist service with diarrhea, who was noted on CT scan of the abdomen, to have multiple areas of extraluminal air on CT scan of her abdomen and pelvis. The patient describes falling on her bathroom floor today. She was trying to clean up with a rag at her foot and she slipped and fell. She crawled out of the bathroom and called 911. She complained of left ankle pain and right flank pain. The patient denied any loss of consciousness. She thinks she hit her head; however, but she was not entirely sure. The patient describes a difficult 2 months of bronchitis and pneumonia. She has been treated with antibiotics. She also noted that she was having significant diarrhea and due to the diarrhea the patient underwent the scan of the abdomen and pelvis. The patient describes a significant amount of coughing with this bronchitis issue. Currently the patient is not having abdominal pain, but more of a right flank, chest, rib pain, and left ankle pain; her left ankle is wrapped. Pain is relieved with narcotics. The patient had a loose bowel movement this morning and that is what caused her to clean up the bathroom that led to the fall. She states that her last flatus was yesterday. She denies any nausea or vomiting. PAST MEDICAL HISTORY: Reviewed, includes morbid obesity, PE, obstructive sleep apnea, gastroesophageal reflux disease, hypertension, left bundle branch, asthma , and spinal stenosis. The patient, in June of this year, underwent spinal surgery. PAST SURGICAL HISTORY: Vertical banded gastroplasty approximately 20 years ago. Approximately her weighted at this time is 340 pounds and states that she lost about 140 pounds before regaining it all. She is interested in having another bariatric surgery and has been seeing or at least made attempts at followup at [facility]. Abdominal hernia repair x2, laparoscopic cholecystectomy, section, and L4-5 decompressive laminectomy. MEDICATIONS: Include Coumadin. REVIEW OF SYSTEMS: No fevers, no chills. Shortness of breath that has worsened over this episode of bronchitis and pneumonia. Poor exercise tolerance. No abdominal complaints. Decreased appetite at this time, which is not usual. No irritable bowel syndrome. She does have a history of GERD. Change of bowel habits is as described, with diarrhea. PHYSICAL EXAM: She is 5 feet 2 inches, 343 pounds, with a body mass index of 63. She is afebrile. Vital signs are stable. Blood pressure 110/67. Alert and oriented x3, in no apparent distress. Head, Ears, Eyes, Nose and Throat: Normocephalic, atraumatic. Sclerae anicteric. Mucous membranes are moist. Abdomen: Soft, obese, tender on deep palpation at the umbilical site and at the right upper quadrant. No rebound. No guarding. No hernias. Healed upper midline incision. No groin hernias. Rectal Exam: Not performed. Extremities : Not examined. DIAGNOSTIC STUDIES/LAB DATA: The patient's labs show a white count of 7.1, with no left shift. Coagulation shows an INR of 2.5. The patient is on Coumadin. Metabolic panel within normal limits with the exception of an elevated CRP of 23, reference range is less than 5. The patient underwent a CAT scan of the abdomen and pelvis among other studies. The images as well as report of the abdomen and pelvis CT was reviewed and did show moderately distended loops of small bowel with collapsed distal loops, with possibility of partial small bowel obstruction. There were multiple small foci of free air scattered throughout the peritoneal cavity, with a predominance in the left upper quadrant. There was no free fluid. There was no inflammatory process within this. IMPRESSION: A morbidly obese 57-year-old female with recent history of pneumonia and treatment, with bronchitis and severe coughing, with history of obstructive sleep apnea, now with diarrhea that shows the unlikely possibility of a small bowel obstruction as well as the unlikely possibility of a perforated viscus based on CT scan. The areas of pneumoperitoneum could be secondary to perforated ulcer at the vertical banded gastroplasty and the patient may benefit from EGD in the future. This could have been something older that happened during the course of the last couple of months as she is not symptomatic at this point. Additionally, the pneumoperitoneum could have been secondary to this bronchitis and the severe coughing patient has been contending with over the course of the last 2 months. The patient does not have a surgical abdomen and does not warrant any surgical intervention. I would follow her white count, her CRP to see if she should even be a candidate to start antibiotics. I agree with the plan to rule out C. diff and observation. The patient should be ambulatory and she can start a diet. [id number]/[facility] #: [id number] DIVINA
[2017-09-01] MEDS: Metoprolol Tartrate TAB* 25 MG PO SCH (20:32)
[2017-09-02] MEDS ORDERED: Omeprazole CAP* 20 MG PO SCH (07:30)
[2017-09-02 08:42] VITALS: BP 116/63
[2017-09-02] MEDS: Gabapentin CAP(*) 300 MG PO SCH (08:49)
[2017-09-02] MEDS: Metoprolol Tartrate TAB* 25 MG PO SCH (08:49)
[2017-09-02] MEDS ORDERED: FERROUS GLUCONATE 240 MG PO SCH (09:00)
--- NOTE | 2017-09-02 19:47 | DS ---
CC: Dr. Murillo * DISCHARGE SUMMARY: DATE OF ADMISSION: 09/01/17 DATE OF DISCHARGE: 09/02/17 HOSPITAL COURSE: This 57-year-old woman came when she slipped at home. She stated she hit her head. She also sprained her ankle. She had had a loose bowel movement. She said she was trying to clean up with her foot and slipped. There was history of having diarrhea; however, on the date of discharge she told me she had 3 loose bowel movements at home in the past week and since she came to the emergency room between then and the time she spoke to me preparing for her discharge, she had had 1 loose bowel movement. For some reason, it was not sent down for testing, but I am not sure if this is necessary as the diarrhea is not a significant problem at this time. The patient did say that her brother had diarrhea recently as well, which might still be ongoing. The following morning the patient felt really back to normal. Her ankle really was not hurting. Her stomach was not bothering her or her head. She did have CT of the abdomen and pelvis which showed possible areas of free air. She was evaluated by the surgical service. It was felt that these may be older pockets of air or relatively chronic and in any case did not seem to be a clinical problem. They would not recommend any surgical intervention or treatment at this time, possibly if there is some problem the EGD might be useful to see if there is any ulceration at the vertical banding site. The patient's lab work was really unremarkable. Her INR was 2.51 on admission and 3.00 on the day of discharge. I am going to advise her to skip 1 day of warfarin. I think she may have skipped some meals here. C-reactive protein was 23.31, very similar to previous results. White count was 7.1, hematocrit 43, platelets 214. Electrolytes are normal. BUN was 10, creatinine 0.58. FINAL DIAGNOSES: 1. Ankle sprain. 2. Morbid obesity. 3. Gastroesophageal reflux disease. 4. Asthma. 5. Left bundle branch block. 6. Spinal stenosis. 7. Obstructive sleep apnea. DISCHARGE MEDICATION: 1. Ranitidine 300 mg h.s. 2. Ferrous gluconate 240 mg daily. 3. Hydrocodone/acetaminophen 5/325 one to two every 6 hours p.r.n. 4. Albuterol inhaler 2 puffs every 4 hours p.r.n. 5. Metoprolol tartrate 12.5 mg every 12 hours. 6. Gabapentin 300 mg t.i.d. 7. Warfarin 5 mg daily, to skip the day of discharge. 8. Omeprazole 20 mg daily. [id number]/[facility] #: [id number] [facility]
[2017-09-03 08:00] LABS: Urine Bacteria 2+ (Absent); Urine Bilirubin Negative (Negative); Urine Glucose Negative (Negative); Urine Nitrite Negative (Negative)
== END 2017-09-02 11:26 | disposition home or self-care (01) ==
LOC: ED 06:43 → MEDTELE 09:30
PROVIDERS: ADMIT Internal Medicine; ATTEND Internal Medicine
DX: S93.402A Sprain of unspecified ligament of left ankle, initial encounter (principal); M54.5 Low back pain; R19.7 Diarrhea, unspecified; R93.5 Abnormal findings on diagnostic imaging of other abdominal regions, including retroperitoneum; M51.36 Other intervertebral disc degeneration, lumbar region; M47.896 Other spondylosis, lumbar region; M50.30 Other cervical disc degeneration, unspecified cervical region; M54.2 Cervicalgia; W01.0XXA Fall on same level from slipping, tripping and stumbling without subsequent striking against object, initial encounter; Y92.002 Bathroom of unspecified non-institutional (private) residence as the place of occurrence of the external cause; Z79.01 Long term (current) use of anticoagulants; R53.1 Weakness; Z86.711 Personal history of pulmonary embolism; G47.33 Obstructive sleep apnea (adult) (pediatric); R10.11 Right upper quadrant pain; I44.7 Left bundle-branch block, unspecified; Z79.899 Other long term (current) drug therapy
CPT/HCPCS: 36415; 70450; 72125; 72131; 74176; 80053; 81003; 81015; 82272; 83605; 83690; 83735; 83880; 85025; 85610; 85730; 86140; 87086; 87328; 87329; 87493; 96374; 99284; A9270-GY; G0378

== ENCOUNTER 2018-06-29 14:52 | Observation (INO) | payer MEDICAID ==
--- NOTE | 2018-06-29 15:23 | ED ---
Skin Complaint - HPI Summary HPI Summary: Patient is a 58-year-old female who presents emergency department for evaluation of chronic wound to her left lower abdomen. Patient states she developed wound about 3-4 weeks ago. She currently follows with Dr. Campa in the wound clinic. She states she sees him every Wednesday. She states that she recently finished antibiotics. She states that over the weekend she noticed wound got larger, more painful and was draining. Associated symptoms of fever and chills. Symptoms are [id number] in severity. Touching wound makes symptoms worse. Nothing makes symptoms better. - History of Current Complaint Chief Complaint: EDRashSkinAbscess Time Seen by Provider: 06/29/18 15:00 Stated Complaint: ABD SWELLING Hx Obtained From: Patient Hx Last Menstrual Period: N/A Pain Intensity: 0 - Additional Pertinent History Primary Care Physician: [id number] - Allergy/Home Medications Allergies/Adverse Reactions: Allergies Allergy/AdvReac Type Severity Reaction Status Date / Time buckwheat Allergy Rash Verified 06/06/18 12:26 dust mites Allergy Headache Uncoded 06/06/18 12:26 Home Medications: Home Medications Albuterol HFA INHALER* [Ventolin HFA Inhaler*] 2 puff INH Q4H PRN 06/29/18 [ History Confirmed 06/29/18] Enoxaparin(*) [Lovenox(*)] 150 mg SUBCUT Q12HR 06/29/18 [History Confirmed 06/29] Ferrous Gluconate TAB* [Fergon TAB*] 325 mg PO DAILY 06/29/18 [History Confirmed 06/29/18] Fluconazole 150 MG (NF) [Diflucan 150 mg (NF)] 150 mg PO DAILY 06/29/18 [ History Confirmed 06/29/18] Nystatin TOP POWDER* 1 applic TOPICAL BID PRN 06/29/18 [History Confirmed ] Omeprazole CAP* [Prilosec CAP* 20 MG] 20 mg PO DAILY 06/29/18 [History Confirmed 06/29/18] PMH/Surg Hx/FS Hx/Imm Hx Previously Healthy: Yes Endocrine/Hematology History: Reports: Hx Anemia Denies: Hx Diabetes, Hx Unexplained Bleeding Cardiovascular History: Reports: Hx Angina, Hx Deep Vein Thrombosis, Hx Embolism , Hx Hypertension, 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; tricuspid gisele disease, Other Cardiovascular Problems/Disorders - left BBB, chronic edema Denies: Hx Aneurysm, Hx Angioplasty, Hx Auto Implanted Cardiovert Defib, Hx Cardiac Arrest, Hx Cardiomegaly, Hx Congenital Heart Disease, Hx Congestive Heart Failure, Hx Coronary Artery Disease, Hx Hypercholesterolemia, Hx Hypotension, Hx Myocardial Infarction, Hx Pacemaker/ICD, Hx Peripheral Vascular Disease, Hx Rheumatic Fever, Hx Syncope Respiratory History: Reports: Hx Asthma, Hx Pulmonary Embolism, Hx Sleep Apnea, Other Respiratory Problems/Disorders - PE hx 2005 liyah Denies: Hx Chronic Obstructive Pulmonary Disease (COPD) GI History: Reports: Hx Gall Bladder Disease - removed, Hx Gastroesophageal Reflux Disease, Other GI Disorders - stomach stapled History: Denies: Hx Renal Disease Musculoskeletal History: Reports: Hx Back Problems - L4-5 lami a few months ago , Other Musculoskeletal History - chronic knee pain Sensory History: Reports: Hx Contacts or Glasses Denies: Hx Cataracts, Hx Eye Injury, Hx Eye Prosthesis, Hx Glaucoma, Hx Legally Blind, Hx Macular Degeneration, Hx Vision Problem, Hx Hearing Aid, Other Sensory Impairments Opthamlomology History: Reports: Hx Contacts or Glasses Denies: Hx Cataracts, Hx Eye Injury, Hx Eye Prosthesis, Hx Glaucoma, Hx Legally Blind, Hx Macular Degeneration, Hx Vision Problem, Other Sensory Impairments Neurological History: Denies: Other Neuro Impairments/Disorders Psychiatric History: Denies: Hx Panic Disorder - Surgical History Surgery Procedure, Year, and Place: CARDIAC CATH, TONSILECTOMY, , RIGHT ABD HERNIA REPAIR X3, STOMACH STAPLING, CHOLECYSTECTOMY. [facility]-05/2017 - Immunization History Date of Tetanus Vaccine: Unk Date of Influenza Vaccine: None Infectious Disease History: No Infectious Disease History: Denies: Hx Clostridium Difficile, Hx Hepatitis, Hx Human Immunodeficiency Virus (HIV), Hx of Known/Suspected MRSA, Hx Shingles, Hx Tuberculosis, Hx Known/ Suspected VRE, Hx Known/Suspected VRSA, History Other Infectious Disease, Traveled Outside the [place] in Last 30 Days - Family History Known Family History: Positive: Cardiac Disease - father with NM and in 80's, Hypertension - father - Social History Occupation: Unemployed Lives: Alone Alcohol Use: None Hx Substance Use: No Substance Use Type: Reports: None Hx Tobacco Use: Yes Smoking Status (MU): Former Smoker Type: Cigarettes Have You Smoked in the Last Year: No Review of Systems Positive: Fever, Chills Positive: Diarrhea, Nausea Positive: other - vaginal bleeding Positive: Other - infection to left lower abd. anterior wall Neurological: Negative All Other Systems Reviewed And Are Negative: Yes Physical Exam Triage Information Reviewed: Yes Vital Signs On Initial Exam: Initial Vitals Temp Pulse Resp BP Pulse Ox 99.4 F 66 20 137/86 93 06/29/18 14:53 06/29/18 14:53 06/29/18 14:53 06/29/18 14:53 06/29/18 14:53 Vital Signs Reviewed: Yes Appearance: Positive: Well-Appearing - Pt. lying in bed in NAD. Morbidly obese. Skin: Positive: Warm, Dry, Other - 2cm open draining wound to left lower abd. wall anteriorly. Large area of surrounding induration, erythema and pain. Head/Face: Positive: Normal Head/Face Inspection Eyes: Positive: Normal, EOMI Neck: Positive: Supple Neurological: Positive: Normal, CN Intact II-III Psychiatric: Positive: Affect/Mood Appropriate Diagnostics - Vital Signs Vital Signs Temp Pulse Resp BP Pulse Ox 06/29/18 14:53 99.4 F 66 20 137/86 93 - Laboratory Result Diagrams: 06/29/18 15:38 06/29/18 15:38 Lab Statement: Any lab studies that have been ordered have been reviewed, and results considered in the medical decision making process. Course/Dx - Course Course Of Treatment: Pt. presenting for worsening abd. wall infection after course of PO antibx. Low grade fever 99.4F. I spoke with Dr. Campa who recommends admission for IV antibx and he plans to take pt. to the OR for debridement. Labs ordered. Pt. given a dose of vancomycin. Labs are realatively unremarkable other than milldy elevated CRP. U/S per radiology: REPORT AND IMPRESSION: #. Obese body habitus with large pannus limits assessment. #. Extensive dermal and subcutaneous tissue plane edema. No loculated abscess collection. evident. #. Visualized superficial veins with demonstrated flow on color Doppler. I spoke with hospitalist, Dr. Lu, and pt. will be admitted. - Differential Diagnoses - Skin Complaint Differential Diagnoses: Abscess, Cellulitis, Systemic Illness - Diagnoses Provider Diagnoses: Wound cellulitis Discharge - Sign-Out/Discharge Documenting (check all that apply): Patient Departure - Discharge Plan Condition: Stable Disposition: ADMITTED TO [facility] - Billing Disposition and Condition Condition: STABLE Disposition: Admitted to [facility]
--- OUTSIDE RECORDS SUMMARY | 2018-06-29 15:37 | XMS REPORT ---
:1960 External Reference #:[id number] Author Organization [facility] Address [address] [place] [address] [place] [address] Phone [phone] Care Team Providers Name Role Phone Serena Murillo MD Primary Care Physician Unavailable Payers Type Date Identification Numbers Payment Provider Subscriber Medicaid Policy Number: [id number] Medicaid Bettina Jain Group Name: 1 1 [address] PayID: [id number] [place] [address] Medigap Part B Expires: 2018 Policy Number: [id number] Private Bettina Jain PayID: [id number] Commercial Effective: Policy Number: Sousa[employer] Bettina A 2016 [id number] Medicaid Cristobal Expires: 2018 PayID: [id number] [address] [address] [place] [address] Commercial Expires: 2015 Policy Number: Sousa/Totalcare Bettina A [id number] Medicaid [place] PayID: [id number] [address] [address] [place] [address] Commercial Effective: Policy Number: Sousa/Totalcare Btetina A 2006 [id number] Medicaid [place] Expires: 2007 PayID: [id number] [address] [address] [place] [address] Problems Date Description Provider Status Onset: 06/07/2014 Benign essential hypertension Leidy Spencer M.D. Active Onset: 06/07/2014 Left bundle branch block Leidy Spencer M.D. Active Onset: 06/07/2014 Pulmonary embolism Leidy Spencer M.D. Active Onset: 06/07/2014 Paroxysmal ventricular Leidy Spencer M.D. Active tachycardia Onset: 06/07/2014 Mitral valve disorder Leidy Spencer M.D. Active Onset: 06/07/2014 Tricuspid valve disorder, Leidy Spencer M.D. Active non-rheumatic Onset: 12/24/2014 Obstructive sleep apnea syndrome Cathy Hubbard MD Active Note: Does not use CPAP Onset: 12/24/2014 Morbid obesity Cathy Hubbard MD Active Onset: 12/24/2014 Intrinsic asthma without status Cathy Hubbard MD Active asthmaticus Onset: 12/24/2014 Gastroesophageal reflux disease Cathy Hubbard MD Active Onset: 04/20/2016 Localized, primary osteoarthritis Vaughn Landon M.D. Active Onset: 11/16/2016 Localized, primary osteoarthritis Sharyn Valenzuela M.D. Active of the pelvic region and thigh Onset: 12/30/2016 Chronic pulmonary embolism Damian Ledezma M.D. Active Onset: 01/28/2017 Uterine leiomyoma Serena Murillo M.D. Active Onset: 12/08/2017 Degeneration of lumbar Evan Peralta M.D. Active intervertebral disc Onset: 06/07/2014 Chest pain Delores Dunbar M.D. Inactive: 01/28/2017 Onset: 06/07/2014 Coronary arteriosclerosis Leidy Spencer M.D. Resolved Resolved: 11/20/2016 Onset: 06/07/2014 Electrocardiogram abnormal Leidy Spencer M.D. Resolved Resolved: 11/20/2016 Onset: 06/07/2014 Ischemic heart disease [facility] E[facility] Schedule Resolved Resolved: 11/20/2016 Onset: 06/07/2014 Abnormal results of Leidy Spencer M.D. 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 Resolved Resolved: 11/20/2016 Onset: 11/14/2015 Essential hypertension Leidy Spencer M.D. Resolved Resolved: 11/20/2016 Onset: 04/27/2016 Closed fracture of patella Sharyn Valenzuela M.D. Resolved Resolved: 05/25/2018 Onset: 11/20/2016 Dysfunctional uterine bleeding Ken Monroe M.D. Resolved Resolved: 05/25/2018 Onset: 12/23/2016 Anemia due to chronic blood loss Serena Murillo M.D. Resolved Resolved: 05/25/2018 Note: menometorrhagia Onset: 12/30/2016 Excessive and frequent menstruation Damian Ledezma M.D. Resolved Resolved: 05/25/2018 Onset: 08/27/2017 Convalescence after surgery Evan Peralta M.D. Resolved Resolved: 05/25/2018 Family History Date Family Member(s) Problem(s) Comments General PGM of a stroke ; MGM had pulmonary issues General Hypertension Father non-contributory ? of a heart attack Mother Hypotension;alive at age 81 Mother Coronary Artery Disease (CAD) February 2018 Siblings 3 Siblings brother w/acid reflux,brother unknow, sister w/respiratory issues First Brother 54 First Sister 52 Social History Type Date Description Comments Marital Status Lives With Alone Occupation Disabled Cigarette Use Former Cigarette Smoker Cigarette Use Quit 25 Years Ago Quit 1988 - ETOH Use Rarely consumes alcohol Smoking Patient is a former smoker Recreational Drug Use Never Used Drugs Daily Caffeine Does Not Consume Caffeine occasional soda Exercise Type/Frequency Exercises rarely General Hx Text On DSS now, Allergies, Adverse Reactions, Alerts Date Description Reaction Status Severity Comments 03/30/2017 Buckwheat Allergenic Extract active per patient 04/19/2018 Perfumes active 04/19/2018 Environmental active 12/24/2014 NKDA inactive Medications Medication Date Status Form Strength Qnty SIG Indications Ordering Provider Ferrous Gluconate 06/23 Active Tablets 240(27Fe) 90tab once a Day mg s Antonio Murillo Lovenox 06/07 Active Solution 150mg/ml 30ml SC every 12 hours , Chidi, shannon on M.D. the morning of surgery Fluconazole 05/30 Active Tablets 150mg 2tabs 1 by mouth every day Antonio Murillo Medroxyprogestero 05/02 Active Tablets 10mg once daily Unknown Dr. Rodriguez Warfarin Sodium 01/25 Active Tablets 5mg 90tab 1 tab Serena /2018 s daily or nitin Murillo M.D. directed (managed by pmd) Nystatin 11/18 Active Powder [id number] 90gm apply to t/GM affected luisana Murillo M.D. twice a day as needed for rash x 10 days Wheelchair 08/11 Active Misc 1unit as needed fern Murillo M.D. Gabapentin 08/03 Active Capsules 300mg 120ca take one ps capsule by renetta Murillo M.D. three times daily. Walker [place] 01/19 Active Misc -09/27" 1unit as needed Serena Wheels/ s Liana Murillo M.D. Holes/-09/27" Ventolin HFA 01/16 Active Aerosol 108(90Bas 18uni 2 puffs by Other /2016 e) ts mouth q4 Ordering mcg/Act hrs as Provider needed Metoprolol 01/16 Active Tablets 25mg 30tab /2 tab by Serena Tartrate s mouth Chidi, every 12 M.D. hours Knee Brace/Hinged 06/05 Active Misc Hinge 3X please fit Gillian Bars/3X-Large for hinge Bordoni, knee brace [employer] Ranitidine HCL 12/23 Active Tablets 300mg 90tab 1 by mouth s every day Antonio Murillo Omeprazole Active Capsules 20mg 90cap 1 by mouth Serena / DR shirley every day Antonio Murillo Augmentin 06/09 Hx Tablets 875-125mg 20tab 1 tab by L02.211 s mouth Chidi, - twice a M.D. Nitrofurantoin 04/14 Hx Capsules 100mg 10cap 1 by mouth Serena Macrocrystal s twice a Chidi, - day M.D. 04/19 Fluconazole 04/14 Hx Tablets 150mg 2tabs 1 by mouth Serena /2018 every day Chidi, - M.D. 05/25 Fluconazole 12/02 Hx Tablets 100mg 5tabs 1 tab by Serena mouth Chidi, - daily x 5 M.D. Fluconazole 11/29 Hx Tablets 150mg 3tabs 1 tab by mouth Chidi, - daily x 3 M.D. Azithromycin 08/19 Hx Tablets 250mg 6tabs take 2 tab J40 on day 1 Chidi, - then 1 tab M.D. 08/24 daily x days Fluconazole 05/07 Hx Tablets 150mg 2tabs 1 by mouth every day Murillo, - M.D. 05/09 Fluconazole 02/02 Hx Tablets 150mg 2tabs 1 by mouth every day Chidi, - M.D. 03/08 Cephalexin 01/20 Hx Capsules 500mg 1 tab 4 times a - day 01/30 Coumadin 01/18 Hx Tablets 2mg 90tab 6mg or as s directed Chidi, - based on M.D. 06/09 inr levels Coumadin 01/16 Hx Tablets 5mg 60tab 1 tab PO s daily Ordering - Provider 01/18 Ciprofloxacin HCL 12/29 Hx Tablets 500mg one by mouth - twice 01/27 daily for 10 days Lisinopril 12/23 Hx Tablets 5mg 1 by mouth every day Chidi, - M.D. 12/30 Xarelto 12/23 Hx Tablets 15mg 90tab 1 by mouth s bid X 20 Murillo, - days then M.D. 01/19 20 mg once a day Nystop 12/23 Hx Powder [id number] 120un apply to t/GM its affected Chidi, - area twice M.D. 04/25 a day for 10 days as needed Ferrous Gluconate 12/23 Hx Tablets 240(27Fe) 90tab once a day mg s Chidi, - M.D. 06/09 Tramadol HCL 04/27 Hx Tablets 50mg 45tab 1 tablet M17.12 s by mouth Nicolas, - every 8 M.D. 09/29 hours needed pain Metoprolol 11/14 Hx Tablets 100mg 90tab 1/2 by Ken Tartrate /2015 s mouth [place], - twice a M.D. Advair HFA 12/24 Hx Aerosol 115-21mcg 2unit 2 puff 493.10 Cathy /2014 /Act s twice a MD [place] - day 11/20 Naproxen 12/23 Hx Tablets 500mg 60tab 1 tablet Cathy /2015 s with food MD [place] by mouth twice a day Prednisone 12/23 Hx Tablets 20mg 1 by mouth every day - 02/24 Doxycycline 12/23 Hx Capsules 100mg twice a Unknown Hycl day by - mouth 02/24 Levalbuterol HCL 08/01 Hx Nebulizer 0.31mg/3M 120un every 6h L its as needed S. - Tj, 11/20 M.D. Klor-Con 06/07 Hx Packet 20Meq mix and drink 1 S. - packet Tj, 06/06 daily M.D. Imdur 02/07 Hx Tablets ER 30mg 30tab 1 po qd Qutayb 24HR s S. - Tj, 06/06 M.D. Singulair 05/16 Hx Tablets 10mg 90tab 1 PO qd Qutayb s S. - Tj, 06/06 M.D. Nitroquick 01/10 Hx Tablets 0.4mg 30tab 1 S/L prn Qutaybeh Sub s Chest S. - Pain, Q 5 Tj, 06/06 Min. Up To M.D. 3 Tabs Warfarin Sodium 01/10 Hx Tablets 2mg as Qutayb directed S. - by Dr. Spencer, 02/07 Tobias M.D. Omeprazole 01/10 Hx Capsules 20mg 1 PO bid Qutayb DR Oswald Spencer, 12/24 M.D. Metoprolol 01/10 Hx Tablets 100mg 45tab 1/2 po bid Qutayb s S. [facility], 11/14 M.D. /2015 Klor-Con M10 01/10 Hx Tablets ER 10Meq 1 po bid [facility], 06/06 M.D. /2013 Lisinopril 01/10 Hx Tablets 10mg 30tab 1 tab s daily [facility], - M.D. 12/23 Plavix 01/10 Hx Tablets 75mg 1 PO qd [facility], 06/06 M.D. Lasix 01/10 Hx Tablets 80mg 30tab 1 by mouth every day [facility], 01/14 M.D. Aspirin 01/10 Hx Tablets 81mg 90tab 1 PO qd [facility], 01/31 M.D. Control Hx 1 po bid Unknown Pill /0000 - 06/06 Medroxyprogestero Hx Tablets 10mg 1 by mouth Unknown ne Acetate /0000 daily for - 10 days 11/13 then january repeat Tramadol HCL Hx Tablets 50mg 1-2 Unknown /0000 tablets - every 6 09/29 hours needed Aspirin Hx Tablets DR 81mg 1 by mouth Unknown /0000 every day - 12/23 Furosemide Hx Tablets 80mg 1 by mouth Unknown /0000 every day - 09/29 Oxygen 00/ Hx 3L Unknown /0000 continuous - via NC 01/14 Iron 00 Hx Unknown /0000 - 04/25 Cyclobenzaprine Hx Tablets 10mg one by Unknown HCL /0000 mouth - three 07/30 times day as needed spasm Gabapentin Hx Capsules 100mg take 2 Unknown /0000 capsule by - mouth tid 08/03 Hydrocodone-Aceta Hx Tablets 5-325mg 1 tab by Unknown minophen /0000 mouth - every 4- 6 04/13 hours needed pain Senna Hx Tablets 8.6mg Not Unknown /0000 taking--on - e daily as 11/18 needed for constipati on by mouth Nystatin Hx Powder apply two Unknown /0000 times a - day 11/18 Benzonatate 00 Hx Capsules 100mg To, /0000 MD Raffaele - 11/18 Medications Administered in Office Medication Date Status Form Strength Qnty SIG Indications Ordering Provider [place] Administered Injection Sharyn 40MG Vielka Valenzuela M.D. Immunizations CPT Code Status Date Vaccine Lot # [id number] Given 06/09/2018 Influenza Virus Vaccine, Quadrivalent, Split, [id number] Preservative Free [id number] Given 08/05/2017 Tdap - Tetanus/Diptheria/Acellular Pertussis [id number] Given 12/24/2014 Fluvirin Im 3Yrs And Older [id number] Refused 08/05/2017 Pneumonia Vaccine Vital Signs Date Vital Result Comment 06/09/2018 Height 62.5 inches 5'2.50" Heart Rate 74 /min BP Systolic Sitting 122 mmHg wrist BP Diastolic Sitting 88 mmHg wrist O2 % BldC Oximetry 93 % 05/25/2018 Height 62.5 inches 5'2.50" Weight 335.00 lb Heart Rate 73 /min BP Systolic Sitting 120 mmHg wrist BP Diastolic Sitting 80 mmHg wrist O2 % BldC Oximetry 94 % BMI (Body Mass Index) 60.3 kg/m2 05/24/2018 Weight 335.75 lb 05/24/2018 Height 62.5 inches 5'2.50" Weight 325.00 lb Heart Rate 78 /min BP Systolic 136 mmHg BP Diastolic 78 mmHg Respiratory Rate 14 /min Pain Level 6 BMI (Body Mass Index) 58.5 kg/m2 04/28/2018 Height 62.5 inches 5'2.50" Weight 325.00 lb Heart Rate 76 /min BP Systolic 130 mmHg BP Diastolic 78 mmHg Respiratory Rate 14 /min Pain Level 8 BMI (Body Mass Index) 58.5 kg/m2 04/19/2018 Height 62.5 inches 5'2.50" Weight 336.00 lb per 04/14/18 PCP note Heart Rate 76 /min BP Systolic Sitting 126 mmHg Lue thigh cuff BP Diastolic Sitting 80 mmHg Lue thigh cuff Respiratory Rate 18 /min BMI (Body Mass Index) 60.5 kg/m2 Ejection Fraction 55-60% 12/20/16 04/14/2018 Height 62.5 inches 5'2.50" Weight 336.00 lb Heart Rate 69 /min BP Systolic Sitting 128 mmHg BP Diastolic Sitting 70 mmHg O2 % BldC Oximetry 94 % BMI (Body Mass Index) 60.5 kg/m2 03/24/2018 Height 62.5 inches 5'2.50" Weight 325.00 lb BP Systolic 130 mmHg BP Diastolic 68 mmHg Respiratory Rate 20 /min Pain Level 1 BMI (Body Mass Index) 58.5 kg/m2 02/03/2018 Height 62.5 inches 5'2.50" Weight 325.00 lb Heart Rate 65 /min BP Systolic Sitting 113 mmHg BP Diastolic Sitting 75 mmHg Respiratory Rate 16 /min Body Temperature 98.7 F Pain Level 7 BMI (Body Mass Index) 58.5 kg/m2 01/04/2018 Heart Rate 65 /min BP Systolic Sitting 120 mmHg BP Diastolic Sitting 96 mmHg O2 % BldC Oximetry 95 % 12/08/2017 Height 62.5 inches 5'2.50" Weight 325.00 lb Heart Rate 72 /min Pain Level 9 BMI (Body Mass Index) 58.5 kg/m2 11/18/2017 Weight 325.00 lb Heart Rate 86 /min BP Systolic Sitting 136 mmHg via wrist BP Diastolic Sitting 98 mmHg via wrist Body Temperature 99.1 F O2 % BldC Oximetry 91 % 10/15/2017 Height 63 inches 5'3" Weight 322.00 lb Heart Rate 90 /min BP Systolic Sitting 136 mmHg BP Diastolic Sitting 82 mmHg Pain Level 6 BMI (Body Mass Index) 57.0 kg/m2 10/12/2017 Weight 322.00 lb Heart Rate 77 /min BP Systolic Sitting 130 mmHg BP Diastolic Sitting 80 mmHg Body Temperature 98.7 F O2 % BldC Oximetry 91 % 08/27/2017 Height 63 inches 5'3" Weight 322.00 lb Heart Rate 86 /min BP Systolic Sitting 132 mmHg BP Diastolic Sitting 84 mmHg Pain Level 4 BMI (Body Mass Index) 57.0 kg/m2 08/19/2017 Weight 322.00 lb Heart Rate 91 /min BP Systolic Sitting 130 mmHg BP Diastolic Sitting 90 mmHg Body Temperature 98.8 F O2 % BldC Oximetry 92 % 08/05/2017 Weight 325.38 lb Heart Rate 75 /min BP Systolic Sitting 130 mmHg BP Diastolic Sitting 80 mmHg Body Temperature 98.9 F O2 % BldC Oximetry 95 % 07/30/2017 Height 62.5 inches 5'2.50" Weight 325.00 lb wheelchair Heart Rate 72 /min BP Systolic Sitting 158 mmHg BP Diastolic Sitting 94 mmHg Body Temperature 99.4 F Pain Level 8 BMI (Body Mass Index) 58.5 kg/m2 07/19/2017 Height 62.5 inches 5'2.50" Weight 325.00 lb Heart Rate 82 /min BP Systolic Sitting 132 mmHg BP Diastolic Sitting 70 mmHg Pain Level 4 BMI (Body Mass Index) 58.5 kg/m2 06/23/2017 Height 62.5 inches 5'2.50" Weight 325.00 lb Heart Rate 82 /min BP Systolic Sitting 130 mmHg BP Diastolic Sitting 84 mmHg Pain Level 4 BMI (Body Mass Index) 58.5 kg/m2 06/02/2017 Height 62.5 inches 5'2.50" Weight 345.00 lb Heart Rate 77 /min BP Systolic 141 mmHg BP Diastolic 81 mmHg BMI (Body Mass Index) 62.1 kg/m2 04/26/2017 Height 62.5 inches 5'2.50" Weight 344.00 lb Heart Rate 70 /min BP Systolic 153 mmHg BP Diastolic 79 mmHg BMI (Body Mass Index) 61.9 kg/m2 03/31/2017 Height 62.25 inches 5'2.25" Weight 345.00 lb Heart Rate 93 /min BP Systolic 122 mmHg BP Diastolic 70 mmHg Body Temperature 99.8 F O2 % BldC Oximetry 96 % BMI (Body Mass Index) 62.6 kg/m2 03/30/2017 Height 62.25 inches 5'2.25" Weight 345.00 lb with shoes Heart Rate 76 /min BP Systolic Sitting 110 mmHg R forearm lg cuff BP Diastolic Sitting 54 mmHg R forearm lg cuff Respiratory Rate 17 /min BMI (Body Mass Index) 62.6 kg/m2 03/09/2017 Height 62.25 inches 5'2.25" Weight 348.12 lb Heart Rate 72 /min BP Systolic Sitting 120 mmHg BP Diastolic Sitting 72 mmHg Respiratory Rate 16 /min Pain Level 4 Hips O2 % BldC Oximetry 97 % BMI (Body Mass Index) 63.2 kg/m2 01/28/2017 Weight 345.38 lb Heart Rate 88 /min BP Systolic 124 mmHg BP Diastolic 70 mmHg Body Temperature 99.2 F O2 % BldC Oximetry 94 % 12/30/2016 Weight 339.00 lb Heart Rate 73 /min BP Systolic Sitting 136 mmHg BP Diastolic Sitting 80 mmHg Body Temperature 98.3 F O2 % BldC Oximetry 97 % on 3L O2 12/28/2016 Height 62.25 inches 5'2.25" Weight 350.00 lb Heart Rate 78 /min BP Systolic 130 mmHg BP Diastolic 82 mmHg Respiratory Rate 20 /min Body Temperature 98.5 F BMI (Body Mass Index) 63.5 kg/m2 12/23/2016 Heart Rate 103 /min BP Systolic Sitting 152 mmHg BP Diastolic Sitting 80 mmHg Body Temperature 98.3 F O2 % BldC Oximetry 90 % 3L % O2 11/20/2016 Height 62.25 inches 5'2.25" Weight 356.25 lb Heart Rate 70 /min BP Systolic 126 mmHg BP Diastolic 80 mmHg Body Temperature 98.6 F O2 % BldC Oximetry 95 % BMI (Body Mass Index) 64.6 kg/m2 11/16/2016 Height 62.25 inches 5'2.25" Weight 344.00 lb Heart Rate 103 /min BP Systolic 155 mmHg BP Diastolic 74 mmHg BMI (Body Mass Index) 62.4 kg/m2 09/30/2016 Height 62 inches 5'2" Weight 345.00 lb Heart Rate 88 /min BP Systolic Sitting 144 mmHg LA, large BP Diastolic Sitting 94 mmHg LA, large BMI (Body Mass Index) 63.1 kg/m2 Ejection Fraction 68% 02/05/16 stress test 08/05/2016 Weight 337.00 lb Heart Rate 100 /min Pain Level 5 06/05/2016 Heart Rate 92 /min Respiratory Rate 24 /min Pain Level 2 05/04/2016 Weight 303.00 lb fluctuated on scale between 303 - 314 Heart Rate 84 /min Respiratory Rate 22 /min Pain Level 8 04/27/2016 Height 62 inches 5'2" Weight 321.00 lb Heart Rate 80 /min Pain Level 8 BMI (Body Mass Index) 58.7 kg/m2 04/20/2016 Height 62 inches 5'2" Weight 321.00 lb Heart Rate 80 /min Pain Level 5 BMI (Body Mass Index) 58.7 kg/m2 02/12/2016 Height 62 inches 5'2" Weight 351.00 lb Heart Rate 80 /min 96 BP Systolic Sitting 98 mmHg left arm, Thigh cuff BP Diastolic Sitting 68 mmHg left arm, Thigh cuff BP Systolic Standing 90 mmHg left arm, Thigh cuff BP Diastolic Standing 68 mmHg left arm, Thigh cuff Respiratory Rate 20 /min BMI (Body Mass Index) 64.2 kg/m2 Ejection Fraction 50-55% 11/26/15 11/14/2015 Height 62 inches 5'2" Weight 364.75 lb w/shoes Heart Rate 78 /min BP Systolic Sitting 136 mmHg LA thigh cuff BP Diastolic Sitting 82 mmHg LA thigh cuff BMI (Body Mass Index) 66.7 kg/m2 Ejection Fraction 50-55 echo 06/29/14 02/25/2015 Height 62 inches 5'2" Weight 359.00 lb Heart Rate 74 /min reg BP Systolic 140 mmHg BP Diastolic 80 mmHg BMI (Body Mass Index) 65.7 kg/m2 12/24/2014 Height 62 inches 5'2" Weight 351.50 lb with shoes on Heart Rate 100 /min BP Systolic Sitting 142 mmHg BP Diastolic Sitting 88 mmHg Respiratory Rate 20 /min Body Temperature 97.8 F O2 % BldC Oximetry 95 % BMI (Body Mass Index) 64.3 kg/m2 Neck Circumference in inches 18 08/01/2014 Height 62.5 inches 5'2.50" Weight 347.50 lb Heart Rate 72 /min BP Systolic Sitting 122 mmHg Ra, reg BP Diastolic Sitting 74 mmHg Ra, reg BMI (Body Mass Index) 62.5 kg/m2 06/07/2014 Height 62.5 inches 5'2.50" Weight 347.75 lb Heart Rate 84 /min BMI (Body Mass Index) 62.6 kg/m2 03/12/2009 Height 62.5 inches 5'2.50" Weight 297.00 lb Heart Rate 64 /min BP Systolic Sitting 104 mmHg BP Diastolic Sitting 70 mmHg BMI (Body Mass Index) 53.5 kg/m2 02/07/2009 Height 62.5 inches 5'2.50" Weight 289.00 lb Heart Rate 64 /min BP Systolic Sitting 110 mmHg L BP Diastolic Sitting 68 mmHg L O2 % BldC Oximetry 95 % BMI (Body Mass Index) 52.0 kg/m2 02/01/2008 Height 62.5 inches 5'2.50" Weight 317.00 lb Heart Rate 60 /min BP Systolic Sitting 90 mmHg BP Diastolic Sitting 60 mmHg Respiratory Rate 16 /min BMI (Body Mass Index) 57.0 kg/m2 09/22/2007 Height 62.5 inches 5'2.50" Weight 329.00 lb Heart Rate 80 /min BP Systolic Sitting 130 mmHg BP Diastolic Sitting 80 mmHg Respiratory Rate 16 /min BMI (Body Mass Index) 59.2 kg/m2 05/16/2007 Height 62.5 inches 5'2.50" Weight 326.50 lb Heart Rate 68 /min BP Systolic Sitting 130 mmHg BP Diastolic Sitting 86 mmHg BMI (Body Mass Index) 58.8 kg/m2 01/10/2007 Height 62.5 inches 5'2.50" Weight 330.00 lb Heart Rate 66 /min BP Systolic Sitting 118 mmHg BP Diastolic Sitting 76 mmHg BMI (Body Mass Index) 59.4 kg/m2 Results Test Date Test Result H/L Range Note Protime W/ Inr 06/27/2018 Prothrombin Time 33.9 Inr 2.8 Protime W/ Inr 06/20/2018 Prothrombin Time 24.9 Inr 2.1 Laboratory test finding 06/17/2018 Surgical Pathology SEE RESULT BELOW 1 Protime W/ Inr 06/15/2018 Prothrombin Time 21.6 Inr 1.8 CBC Auto Diff 06/06/2018 White Blood Count 7.0 10^3/uL 3.5-10.8 Red Blood Count 5.14 10^6/uL 4.00-5.40 Hemoglobin 15.4 g/dL 12.0-16.0 Hematocrit 46 % 35-47 Mean Corpuscular Volume 90 fL 80-97 Mean Corpuscular Hemoglobin 30 pg 27-31 Mean Corpuscular HGB Conc 33 g/dL 31-36 Red Cell Distribution Width 15 % 10.5-15 Platelet Count 199 10^3/uL 150-450 Mean Platelet Volume 10.2 um3 7.4-10.4 Abs Neutrophils 4.8 10^3/uL 1.5-7.7 Abs Lymphocytes 1.5 10^3/uL 1.0-4.8 Abs Monocytes 0.5 10^3/uL 0-0.8 Abs Eosinophils 0.2 10^3/uL 0-0.6 Abs Basophils 0 10^3/uL 0-0.2 Abs Nucleated RBC 0 10^3/uL Granulocyte % 68.0 % 38-83 Lymphocyte % 20.7 % Low 25-47 Monocyte % 7.4 % High 0-7 Eosinophil % 3.2 % 0-6 Basophil % 0.7 % 0-2 Nucleated Red Blood Cells % 0 Basic Metabolic Panel 06/06/2018 Sodium 141 mmol/L 135-145 Potassium 3.9 mmol/L 3.5-5.0 Chloride 106 mmol/L 101-111 Co2 Carbon Dioxide 28 mmol/L 22-32 Anion Gap 7 mmol/L 2-11 Glucose 115 mg/dL High 70-100 Blood Urea Nitrogen 15 mg/dL 6-24 Creatinine 0.53 mg/dL 0.51-0.95 BUN/Creatinine Ratio 28.3 High 8-20 Calcium 9.2 mg/dL 8.6-10.3 Egfr Non- 118.5 >60 Egfr 143.4 >60 2 Inr/Protime 06/06/2018 Inr 2.67 High 0.77-1.02 Laboratory test 06/06/2018 Partial Thrombo Time 51.0 seconds High 26.0- 36.3 finding PTT Protime W/ Inr 05/25/2018 Prothrombin Time 28.7 Inr 2.4 Inr/Protime 05/09/2018 Inr 2.37 High 0.77-1.02 Inr/Protime 05/02/2018 Inr 1.63 High 0.77-1.02 Urine Culture And 04/14/2018 Urine Culture SEE RESULT BELOW 3 Sensitivities Ua Routine 04/14/2018 Ua Specific 1.020 [place] Ua PH 5 Ua Color dark yellow Ua Appera cloudy Ua WBC + Ua Protein trace Ua Glucose norm Ua Ketones - Ua Bilirubin - Ua Urobilinogen norm Ua Nitrite - Ua Occult Blood 50 Protime W/ Inr 04/14/2018 Prothrombin Time 23.4 Inr 2.0 Protime W/ Inr 03/30/2018 Prothrombin Time 24.1 Inr 2.0 Protime W/ Inr 03/02/2018 Prothrombin Time 28.8 Inr 2.4 Protime W/ Inr 02/07/2018 Prothrombin Time 29.8 Inr 2.4 Protime W/ Inr 01/27/2018 Prothrombin Time 17.9 Inr 1.5 CBC Auto Diff 01/13/2018 White Blood Count 6.2 10^3/uL 3.5-10.8 Red Blood Count 5.36 10^6/uL 4.0-5.4 Hemoglobin 15.4 g/dL 12.0-16.0 Hematocrit 46 % 35-47 Mean Corpuscular Volume 87 fL 80-97 Mean Corpuscular Hemoglobin 29 pg 27-31 Mean Corpuscular HGB Conc 33 g/dL 31-36 Red Cell Distribution Width 16 % High 10.5-15 Platelet Count 214 10^3/uL 150-450 Mean Platelet Volume 9.8 um3 7.4-10.4 Abs Neutrophils 4.3 10^3/uL 1.5-7.7 Abs Lymphocytes 1.2 10^3/uL 1.0-4.8 Abs Monocytes 0.4 10^3/uL 0-0.8 Abs Eosinophils 0.2 10^3/uL 0-0.6 Abs Basophils 0 10^3/uL 0-0.2 Abs Nucleated RBC 0 10^3/uL Granulocyte % 69.3 % 38-83 Lymphocyte % 19.7 % Low 25-47 Monocyte % 7.2 % High 0-7 Eosinophil % 3.2 % 0-6 Basophil % 0.6 % 0-2 Nucleated Red Blood Cells % 0 Inr/Protime 01/13/2018 Inr 1.78 High 0.77-1.02 Protime W/ Inr 12/28/2017 Prothrombin Time 26.1 Inr 2.1 Protime W/ Inr 12/14/2017 Prothrombin Time 28.4 Inr 2.3 Protime W/ Inr 12/07/2017 Prothrombin Time 42.0 Inr 3.4 Istat BUN/Crea/Egfr/V Mainct 12/01/2017 Poc Bun Mainct 12 mg/dL 9-18 Poc Crea Mainct 0.6 mg/dL 0.6-0.9 GFR Non- MCT 103.0 >60 GFR Mainct 132.5 >60 4 Protime W/ Inr 11/12/2017 Prothrombin Time 28.9 Inr 2.4 Inr/Protime 10/26/2017 Inr 2.03 High 0.77-1.02 Protime W/ Inr 10/12/2017 Prothrombin Time 31.5 Inr 2.6 Protime W/ Inr 09/09/2017 Inr 2.97 High 0.77-1.02 5 Laboratory test finding 09/01/2017 Lactic Acid 0.9 mmol/L 0.5-2.0 6 CBC Auto Diff 09/01/2017 White Blood Count 7.1 10^3/uL 3.5-10.8 Red Blood Count 5.13 10^6/uL 4.0-5.4 Hemoglobin 13.9 g/dL 12.0-16.0 Hematocrit 43 % 35-47 Mean Corpuscular Volume 84 fL 80-97 Mean Corpuscular Hemoglobin 27 pg 27-31 Mean Corpuscular HGB Conc 32 g/dL 31-36 Red Cell Distribution Width 16 % High 10.5-15 Platelet Count 214 10^3/uL 150-450 Mean Platelet Volume 10 um3 7.4-10.4 Abs Neutrophils 5.4 10^3/uL 1.5-7.7 Abs Lymphocytes 1.0 10^3/uL 1.0-4.8 Abs Monocytes 0.4 10^3/uL 0-0.8 Abs Eosinophils 0.2 10^3/uL 0-0.6 Abs Basophils 0.1 10^3/uL 0-0.2 Abs Nucleated RBC 0.01 10^3/uL Granulocyte % 75.9 % 38-83 Lymphocyte % 13.5 % Low 25-47 Monocyte % 6.3 % 1-9 Eosinophil % 3.4 % 0-6 Basophil % 0.9 % 0-2 Nucleated Red Blood Cells % 0.1 Inr/Protime 09/01/2017 Inr 2.51 High 0.77-1.02 7 Laboratory test finding 09/01/2017 Partial Thrombo Time 55.8 seconds High 26.0-36.3 PTT Comp Metabolic Panel 09/01/2017 Sodium 139 mmol/L 133-145 Potassium 3.8 mmol/L 3.5-5.0 Chloride 103 mmol/L 101-111 Co2 Carbon Dioxide 31 mmol/L 22-32 Anion Gap 5 mmol/L 2-11 Glucose 112 mg/dL High 70-100 Blood Urea Nitrogen 10 mg/dL 6-24 Creatinine 0.58 mg/dL 0.51-0.95 BUN/Creatinine Ratio 17.2 8-20 Calcium 9.4 mg/dL 8.6-10.3 Total Protein 6.6 g/dL 6.4-8.9 Albumin 3.6 g/dL 3.2-5.2 Globulin 3.0 g/dL 2-4 Albumin/Globulin Ratio 1.2 1-3 Total Bilirubin 0.70 mg/dL 0.2-1.0 Alkaline Phosphatase 65 U/L 34-104 Alt 19 U/L 7-52 Ast 20 U/L 13-39 Egfr Non- 107.2 >60 Egfr 137.8 >60 8 Laboratory test finding 09/01/2017 Magnesium 1.9 mg/dL 1.9-2.7 Lipase 20 U/L 11.0-82.0 C Reactive Protein 23.31 mg/L High < 5.00 9 B-Type Natriuretic Peptide BNP 12 pg/mL 10 Inr/Protime 08/25/2017 Inr 2.10 High 0.77-1.02 11 Protime W/ Inr 08/18/2017 Inr 1.7 Protime W/ Inr 08/11/2017 Prothrombin Time 1.8 CBC Auto Diff 08/11/2017 White Blood Count 6.2 10^3/uL 3.5-10.8 Red Blood Count 5.11 10^6/uL 4.0-5.4 Hemoglobin 13.7 g/dL 12.0-16.0 Hematocrit 43 % 35-47 Mean Corpuscular Volume 83 fL 80-97 Mean Corpuscular Hemoglobin 27 pg 27-31 Mean Corpuscular HGB Conc 32 g/dL 31-36 Red Cell Distribution Width 17 % High 10.5-15 Platelet Count 250 10^3/uL 150-450 Mean Platelet Volume 10 um3 7.4-10.4 Abs Neutrophils 4.1 10^3/uL 1.5-7.7 Abs Lymphocytes 1.2 10^3/uL 1.0-4.8 Abs Monocytes 0.5 10^3/uL 0-0.8 Abs Eosinophils 0.4 10^3/uL 0-0.6 Abs Basophils 0.1 10^3/uL 0-0.2 Abs Nucleated RBC 0 10^3/uL Granulocyte % 66.0 % 38-83 Lymphocyte % 19.2 % Low 25-47 Monocyte % 7.5 % 1-9 Eosinophil % 6.0 % 0-6 Basophil % 1.3 % 0-2 Nucleated Red Blood Cells % 0.1 Comp Metabolic Panel 08/11/2017 Sodium 135 mmol/L 133-145 Potassium 3.9 mmol/L 3.5-5.0 Chloride 99 mmol/L Low 101-111 Co2 Carbon Dioxide 29 mmol/L 22-32 Anion Gap 7 mmol/L 2-11 Glucose 112 mg/dL High 70-100 Blood Urea Nitrogen 10 mg/dL 6-24 Creatinine 0.57 mg/dL 0.51-0.95 BUN/Creatinine Ratio 17.5 8-20 Calcium 9.1 mg/dL 8.6-10.3 Total Protein 6.4 g/dL 6.4-8.9 Albumin 3.5 g/dL 3.2-5.2 Globulin 2.9 g/dL 2-4 Albumin/Globulin Ratio 1.2 1-3 Total Bilirubin 0.70 mg/dL 0.2-1.0 Alkaline Phosphatase 49 U/L 34-104 Alt 14 U/L 7-52 Ast 15 U/L 13-39 Egfr Non- 109.3 >60 Egfr 140.6 >60 12 Laboratory test finding 08/11/2017 Creatine Kinase(CK) 45 U/L 10-223 C Reactive Protein 17.40 mg/L High < 5.00 13 Troponin-I (TnI) 0.00 ng/mL <0.04 B-Type Natriuretic Peptide BNP 12 pg/mL 14 Protime W/ Inr 08/11/2017 Inr 1.8 Protime W/ Inr 08/04/2017 Inr 1.8 Protime W/ Inr 07/28/2017 Inr 1.8 Urinalysis Profile 07/22/2017 Urine Color Natali[place] Urine Appearance Cloudy Urine Specific [place] 1.017 1.010-1.030 Urine pH 6.0 5-9 Urine Urobilinogen Negative Negative Urine Ketones Negative Negative Urine Protein 1+(30 mg/dL) Negative Urine Leukocytes 3+ Negative Urine Blood 3+ Negative Urine Nitrite Negative Negative Urine Bilirubin Negative Negative Urine Glucose Negative Negative Urine White Blood Cell 3+(>20/hpf) Absent Urine Red Blood Cell 3+(>10/hpf) Absent Urine Bacteria Absent Absent Urine Squamous Epithelial Cell Present Absent Urine Culture And 07/22/2017 Urine Culture SEE RESULT BELOW 15 Sensitivities CBC Auto Diff 07/22/2017 White Blood Count 8.5 10^3/uL 3.5-10.8 Red Blood Count 4.84 10^6/uL 4.0-5.4 Hemoglobin 13.0 g/dL 12.0-16.0 Hematocrit 41 % 35-47 Mean Corpuscular Volume 84 fL 80-97 Mean Corpuscular Hemoglobin 27 pg 27-31 Mean Corpuscular HGB Conc 32 g/dL 31-36 Red Cell Distribution Width 16 % High 10.5-15 Platelet Count 278 10^3/uL 150-450 Mean Platelet Volume 10 um3 7.4-10.4 Abs Neutrophils 6.6 10^3/uL 1.5-7.7 Abs Lymphocytes 1.2 10^3/uL 1.0-4.8 Abs Monocytes 0.5 10^3/uL 0-0.8 Abs Eosinophils 0.1 10^3/uL 0-0.6 Abs Basophils 0 10^3/uL 0-0.2 Abs Nucleated RBC 0 10^3/uL Granulocyte % 77.6 % 38-83 Lymphocyte % 14.0 % Low 25-47 Monocyte % 6.3 % 1-9 Eosinophil % 1.6 % 0-6 Basophil % 0.5 % 0-2 Nucleated Red Blood Cells % 0 Laboratory test finding 07/22/2017 B-Type Natriuretic Peptide BNP 26 pg/mL 16 Lactic Acid 1.2 mmol/L 0.5-2.0 17 Comp Metabolic Panel 07/22/2017 Sodium 138 mmol/L 133-145 Potassium 3.6 mmol/L 3.5-5.0 Chloride 102 mmol/L 101-111 Co2 Carbon Dioxide 30 mmol/L 22-32 Anion Gap 6 mmol/L 2-11 Glucose 117 mg/dL High 70-100 Blood Urea Nitrogen 9 mg/dL 6-24 Creatinine 0.52 mg/dL 0.51-0.95 BUN/Creatinine Ratio 17.3 8-20 Calcium 9.1 mg/dL 8.6-10.3 Total Protein 5.9 g/dL Low 6.4-8.9 Albumin 3.1 g/dL Low 3.2-5.2 Globulin 2.8 g/dL 2-4 Albumin/Globulin Ratio 1.1 1-3 Total Bilirubin 0.80 mg/dL 0.2-1.0 Alkaline Phosphatase 45 U/L 34-104 Alt 13 U/L 7-52 Ast 14 U/L 13-39 Egfr Non- 121.5 >60 Egfr 156.3 >60 18 Laboratory test finding 07/22/2017 Magnesium 1.5 mg/dL Low 1.9-2.7 Lipase 29 U/L 11.0-82.0 C Reactive Protein 44.69 mg/L High < 5.00 19 Troponin-I (TnI) 0.00 ng/mL <0.04 TSH (Thyroid Stim Horm) 1.11 mcIU/mL 0.34-5.60 Inr/Protime 07/22/2017 Inr 1.74 High 0.89-1.11 Laboratory test finding 07/22/2017 Partial Thrombo Time 40.3 seconds High 26.0-36.3 PTT Urinalysis Profile 06/30/2017 Urine Color [place] Urine Appearance Turbid Urine Specific [place] 1.018 1.010-1.030 Urine pH 5.0 5-9 Urine Urobilinogen Negative Negative Urine Ketones Negative Negative Urine Protein 1+(30 mg/dL) Negative Urine Leukocytes 3+ Negative Urine Blood 2+ Negative Urine Nitrite Negative Negative Urine Bilirubin Negative Negative Urine Glucose Negative Negative Urine White Blood Cell 3+(>20/hpf) Absent Urine Red Blood Cell 3+(>10/hpf) Absent Urine Bacteria Absent Absent Urine Calcium Oxalate Cryst Present Absent Urine Yeast Present Absent Urine Culture And 06/30/2017 Urine Culture SEE RESULT BELOW 20 Sensitivities CBC Auto Diff 06/06/2017 White Blood Count 7.9 10^3/uL 3.5-10.8 Red Blood Count 4.94 10^6/uL 4.0-5.4 Hemoglobin 13.4 g/dL 12.0-16.0 Hematocrit 42 % 35-47 Mean Corpuscular Volume 85 fL 80-97 Mean Corpuscular Hemoglobin 27 pg 27-31 Mean Corpuscular HGB Conc 32 g/dL 31-36 Red Cell Distribution Width 19 % High 10.5-15 Platelet Count 261 10^3/uL 150-450 Mean Platelet Volume 10 um3 7.4-10.4 Abs Neutrophils 5.9 10^3/uL 1.5-7.7 Abs Lymphocytes 1.1 10^3/uL 1.0-4.8 Abs Monocytes 0.5 10^3/uL 0-0.8 Abs Eosinophils 0.3 10^3/uL 0-0.6 Abs Basophils 0.1 10^3/uL 0-0.2 Abs Nucleated RBC 0.01 10^3/uL Granulocyte % 75.0 % 38-83 Lymphocyte % 14.6 % Low 25-47 Monocyte % 6.2 % 1-9 Eosinophil % 3.4 % 0-6 Basophil % 0.8 % 0-2 Nucleated Red Blood Cells % 0.1 Comp Metabolic Panel 06/06/2017 Sodium 136 mmol/L 133-145 Potassium 4.0 mmol/L 3.5-5.0 Chloride 102 mmol/L 101-111 Co2 Carbon Dioxide 26 mmol/L 22-32 Anion Gap 8 mmol/L 2-11 Glucose 126 mg/dL High 70-100 Blood Urea Nitrogen 16 mg/dL 6-24 Creatinine 0.61 mg/dL 0.51-0.95 BUN/Creatinine Ratio 26.2 High 8-20 Calcium 9.4 mg/dL 8.6-10.3 Total Protein 6.9 g/dL 6.4-8.9 Albumin 3.8 g/dL 3.2-5.2 Globulin 3.1 g/dL 2-4 Albumin/Globulin Ratio 1.2 1-3 Total Bilirubin 0.40 mg/dL 0.2-1.0 Alkaline Phosphatase 56 U/L 34-104 Alt 13 U/L 7-52 Ast 11 U/L Low 13-39 Egfr Non- 101.1 >60 Egfr 130.0 >60 21 Laboratory test finding 06/06/2017 C Reactive Protein 55.60 mg/L High < 5.00 22 Erythrocyte Sed Rate 36 mm/Hr High 0-30 Urinalysis Profile 06/01/2017 Urine Color Yellow Urine Appearance Cloudy Urine Specific [place] 1.008 Low 1.010-1.030 Urine pH 6.0 5-9 Urine Urobilinogen Negative Negative Urine Ketones Negative Negative Urine Protein Negative Negative Urine Leukocytes 3+ Negative Urine Blood 1+ Negative Urine Nitrite Negative Negative Urine Bilirubin Negative Negative Urine Glucose Negative Negative Urine White Blood Cell 3+(>20/hpf) Absent Urine Red Blood Cell 2+(6-10/hpf) Absent Urine Bacteria Absent Absent Urine Squamous Epithelial Cell Present Absent Inr/Protime 06/01/2017 Inr 1.43 High 0.89-1.11 Urine Culture And 06/01/2017 Urine Culture SEE RESULT BELOW 23 Sensitivities Inr/Protime 05/25/2017 Inr 1.26 High 0.89-1.11 24 Inr/Protime 05/18/2017 Inr 1.62 High 0.89-1.11 Comp Metabolic Panel 05/18/2017 Sodium 138 mmol/L 133-145 Potassium 3.9 mmol/L 3.5-5.0 Chloride 103 mmol/L 101-111 Co2 Carbon Dioxide 31 mmol/L 22-32 Anion Gap 4 mmol/L 2-11 Glucose 103 mg/dL High 70-100 Blood Urea Nitrogen 10 mg/dL 6-24 Creatinine 0.51 mg/dL 0.51-0.95 BUN/Creatinine Ratio 19.6 8-20 Calcium 8.9 mg/dL 8.6-10.3 Total Protein 6.1 g/dL Low 6.4-8.9 Albumin 3.4 g/dL 3.2-5.2 Globulin 2.7 g/dL 2-4 Albumin/Globulin Ratio 1.3 1-3 Total Bilirubin 0.40 mg/dL 0.2-1.0 Alkaline Phosphatase 50 U/L 34-104 Alt 13 U/L 7-52 Ast 13 U/L 13-39 Egfr Non- 124.3 >60 Egfr 159.9 >60 25 Laboratory test finding 05/18/2017 Lactic Acid 1.1 mmol/L 0.5-2.0 26 CBC Auto Diff 05/18/2017 White Blood Count 7.6 10^3/uL 3.5-10.8 Red Blood Count 4.64 10^6/uL 4.0-5.4 Hemoglobin 12.0 g/dL 12.0-16.0 Hematocrit 38 % 35-47 Mean Corpuscular Volume 82 fL 80-97 Mean Corpuscular Hemoglobin 26 pg Low 27-31 Mean Corpuscular HGB Conc 32 g/dL 31-36 Red Cell Distribution Width 21 % High 10.5-15 Platelet Count 233 10^3/uL 150-450 Mean Platelet Volume 9 um3 7.4-10.4 Abs Neutrophils 5.1 10^3/uL 1.5-7.7 Abs Lymphocytes 1.7 10^3/uL 1.0-4.8 Abs Monocytes 0.5 10^3/uL 0-0.8 Abs Eosinophils 0.2 10^3/uL 0-0.6 Abs Basophils 0.1 10^3/uL 0-0.2 Abs Nucleated RBC 0.01 10^3/uL Granulocyte % 67.1 % 38-83 Lymphocyte % 22.7 % Low 25-47 Monocyte % 6.6 % 1-9 Eosinophil % 2.9 % 0-6 Basophil % 0.7 % 0-2 Nucleated Red Blood Cells % 0.1 GC/Chlamydia Amplified Rna 05/15/2017 Chlamydia trachomatis Rna Negative Negative Neisseria gonorrhoeae (GC) Rna Negative Negative Inr/Protime 05/11/2017 Inr 3.29 High 0.89-1.11 Inr/Protime 05/04/2017 Inr 2.81 High 0.89-1.11 Inr/Protime 04/27/2017 Inr 1.55 High 0.89-1.11 Inr/Protime 04/22/2017 Inr 4.12 High 0.89-1.11 Inr/Protime 04/08/2017 Inr 2.31 High 0.89-1.11 Protime W/ Inr 03/31/2017 Prothrombin Time 35.7 Inr 3.0 Inr/Protime 03/25/2017 Inr 1.79 High 0.89-1.11 Inr/Protime 03/18/2017 Inr 2.72 High 0.89-1.11 Inr/Protime 03/16/2017 Inr 3.71 High 0.89-1.11 Inr/Protime 03/09/2017 Inr 1.32 High 0.89-1.11 Laboratory test finding 03/09/2017 Lactic Acid 0.9 mmol/L 0.5-2.0 27 Comp Metabolic Panel 03/09/2017 Sodium 137 mmol/L 133-145 Potassium 4.2 mmol/L 3.5-5.0 Chloride 104 mmol/L 101-111 Co2 Carbon Dioxide 28 mmol/L 22-32 Anion Gap 5 mmol/L 2-11 Glucose 105 mg/dL High 70-100 Blood Urea Nitrogen 12 mg/dL 6-24 Creatinine 0.56 mg/dL 0.51-0.95 BUN/Creatinine Ratio 21.4 High 8-20 Calcium 9.3 mg/dL 8.6-10.3 Total Protein 6.6 g/dL 6.4-8.9 Albumin 3.7 g/dL 3.2-5.2 Globulin 2.9 g/dL 2-4 Albumin/Globulin Ratio 1.3 1-3 Total Bilirubin 0.50 mg/dL 0.2-1.0 Alkaline Phosphatase 41 U/L 34-104 Alt 11 U/L 7-52 Ast 15 U/L 13-39 Egfr Non- 111.6 >60 Egfr 143.5 >60 28 Laboratory test finding 03/09/2017 Magnesium 1.8 mg/dL Low 1.9-2.7 Troponin-I (TnI) 0.01 ng/mL <0.04 B-Type Natriuretic Peptide BNP 34 pg/mL 29 CBC Auto Diff 03/09/2017 White Blood Count 6.8 10^3/uL 3.5-10.8 Red Blood Count 4.71 10^6/uL 4.0-5.4 Hemoglobin 11.1 g/dL Low 12.0-16.0 Hematocrit 35 % 35-47 Mean Corpuscular Volume 75 fL Low 80-97 Mean Corpuscular Hemoglobin 24 pg Low 27-31 Mean Corpuscular HGB Conc 31 g/dL 31-36 Red Cell Distribution Width 21 % High 10.5-15 Platelet Count 237 10^3/uL 150-450 Mean Platelet Volume 10 um3 7.4-10.4 Abs Neutrophils 4.8 10^3/uL 1.5-7.7 Abs Lymphocytes 1.2 10^3/uL 1.0-4.8 Abs Monocytes 0.5 10^3/uL 0-0.8 Abs Eosinophils 0.2 10^3/uL 0-0.6 Abs Basophils 0.1 10^3/uL 0-0.2 Abs Nucleated RBC 0 10^3/uL Granulocyte % 70.1 % 38-83 Lymphocyte % 17.5 % Low 25-47 Monocyte % 7.6 % 1-9 Eosinophil % 3.6 % 0-6 Basophil % 1.2 % 0-2 Nucleated Red Blood Cells % 0.1 Inr/Protime 03/02/2017 Inr 2.53 High 0.89-1.11 30 Protime W/ Inr 02/23/2017 Inr 3.1 Protime W/ Inr 02/16/2017 Inr 2.7 Protime W/ Inr 02/09/2017 Inr 3.0 Protime W/ Inr 02/02/2017 Inr 2.1 Protime W/ Inr 01/28/2017 Prothrombin Time 29.3 Inr 2.4 Protime W/ Inr 01/26/2017 Inr 3.1 Protime W/ Inr 01/19/2017 Inr 3.0 CBC Auto Diff 01/19/2017 White Blood Count 8.0 10^3/uL 3.5-10.8 Red Blood Count 4.01 10^6/uL 4.0-5.4 Hemoglobin 9.7 g/dL Low 12.0-16.0 Hematocrit 31 % Low 35-47 Mean Corpuscular Volume 78 fL Low 80-97 Mean Corpuscular Hemoglobin 24 pg Low 27-31 Mean Corpuscular HGB Conc 31 g/dL 31-36 Red Cell Distribution Width 24 % High 10.5-15 31 Platelet Count 278 10^3/uL 150-450 Mean Platelet Volume 9 um3 7.4-10.4 Abs Neutrophils 6.1 10^3/uL 1.5-7.7 Abs Lymphocytes 1.0 10^3/uL 1.0-4.8 Abs Monocytes 0.5 10^3/uL 0-0.8 Abs Eosinophils 0.3 10^3/uL 0-0.6 Abs Basophils 0.1 10^3/uL 0-0.2 Abs Nucleated RBC 0.01 10^3/uL Granulocyte % 76.1 % 38-83 Lymphocyte % 12.6 % Low 25-47 Monocyte % 6.4 % 1-9 Eosinophil % 4.2 % 0-6 Basophil % 0.7 % 0-2 Nucleated Red Blood Cells % 0.1 Xray 11/16/2016 Hip Left 2 Views And Pelvis <pending> [id number] Comp Metabolic Panel 07/06/2008 Sodium 135 mmol/L 135-145 Potassium 4.1 mmol/L 3.5-5.0 Chloride 101 mmol/L 101-111 Co2 (Carbon Dioxide) 28.0 mmol/L 22-32 Anion Gap 6.0 mmol/L 2-11 32 Glucose 97 mg/dL 70-100 33 BUN 19 mg/dL 6-24 Creatinine 1.3 mg/dL 0.5-1.4 One Over Creatinine 0.76 BUN/Creatinine Ratio 14.6 8-20 Calcium 8.8 mg/dL 8.1-9.9 34 Total Protein 5.9 GM/DL Low 6.2-8.1 Albumin 3.7 GM/DL 3.6-5.4 Globulin 2.2 GM/DL 2-4 Albumin/Globulin Ratio 1.7 1-3 Bilirubin Total 0.8 mg/dL 0.4-1.5 Alkaline Phosphatase 89 U/L 39-117 Alt (SGPT) 25 U/L 17-63 Ast (Sgot) 21 U/L 12-42 CBC With Electronic Diff 07/06/2008 White Blood Count 4.2 CUMM Low 4.8- 10.8 Red Cell Count 4.20 CUMM Low 4.6-6.2 Hemoglobin 14.0 g/dL 14.0-18.0 Hematocrit 39 % Low 42-52 Mean Corpuscular Volume 94 um3 80-94 Mean Corpuscular Hemoglob 33 pg High 27-31 Mean Corpuscular HGB Cone 36 g/dL 32-36 Redcell Distribution WDTH 13 % 10.5-15 Platelet Count 196 CUMM 150-450 Mean Platelet Volume 7.5 um3 7.4-10.4 Gran % 61.2 % 38-83 Lymph % 21.8 % 20-45 Mononuclear % 12.9 % High 1-9 Eosinophil % 3.6 % 0-6 Basophil % 0.5 % 0-2 Abs Lymphs 0.9 Low 1.0-4.8 Abs Mononuclear 0.5 0-0.8 Absolute Neutrophil Count 2.6 1.5-7.7 Abs Eosinophils 0.2 0-0.6 Abs Basophils 0 0-0.2 Lipid Profile (Trig/Chol/HDL) 07/06/2008 Triglyceride 1052 mg/dL High 40- 200 Cholesterol 310 mg/dL High Less Than 200 35 Cholesterol/HDL Ratio 10.33 AVERAGE High 1-4.97 Low Density Lipoprotein (SEE NOTE) mg/dL Less Than 100 36 High Density Lipoprotein 30 mg/dL Low 40-60 37 Laboratory test finding 07/06/2008 TSH 2.94 MIU/ML 0.34-5.60 CBC With Electronic Diff 12/29/2007 White Blood Count 7.2 CUMM 4.8-10.8 Abs Basophils 0 0-0.2 Abs Eosinophils 0.4 0-0.6 Absolute Neutrophil Count 4.6 1.5-7.7 Abs Lymphs 1.6 1.0-4.8 Abs Mononuclear 0.6 0-0.8 Basophil % 0.3 % 0-2 Hematocrit 41 % 35-47 Hemoglobin 13.9 g/dL 12.0-16.0 Eosinophil % 5.7 % 0-6 Gran % 63.7 % 38-83 Lymph % 22.4 % 20-45 Mean Corpuscular HGB Cone 34 g/dL 32-36 Mean Corpuscular Hemoglob 31 pg 27-31 Mean Corpuscular Volume 90 um3 79-97 Mean Platelet Volume 9.6 um3 7.4-10.4 Mononuclear % 7.9 % 1-9 Platelet Count 297 CUMM 150-450 Red Cell Count 4.57 CUMM 4.2-5.4 Redcell Distribution WDTH 15 % 10.5-15 1 SEE RESULT BELOW Name: BETTIAN JAIN : [address]: Hernan Campa MD Acct: [id number] Unit: [id number] AGE: 58 Location: WOUND Re06/17/18 SEX: F Status: REG REF SPEC: [id number] SAMMIE: 06/17/18-1015 [facility] DR: Hernan Campa MD REQ: [id number] RECD: 06/17/18-1223 STATUS: JANINE JESSICA DR: Serena Murillo MD _ ORDERED: LEVEL 4 FINAL DIAGNOSIS Skin and subcutaneous tissue left abdomen, biopsy: -- Skin and subcutaneous tissue with chronically inflamed granulation tissue. -- No evidence of neoplasia identified. PRE-OPERATIVE DIAGNOSIS Chronic wound rule out skin cancer GROSS DESCRIPTION The specimen is received in formalin labeled, Left Abdomen, and consists of a 0.8 x 0.8 x 0.3 cm aggregate of bolanos-pink irregular soft tissue fragments admixed with possible skin which is submitted entirely in one cassette. Signed by and Reported on: David Romero MD 10/07 1459 END OF REPORT DEPARTMENT OF PATHOLOGY, [address] [place] [address] David Romero M.D. Director [facility] # [id number] 2 Because ethnic data is not always readily available, this report includes an eGFR for both -Americans and non- Americans. The National Kidney Disease Education Program (NKDEP) does not endorse the use of the MDRD equation for patients that are not between the ages of 18 and 70, are , have extremes of body size, muscle mass, or nutritional status, or are non- or non-. According to the National Kidney Foundation, irrespective of diagnosis, the stage of the disease is based on the level of kidney function: Stage Description GFR(mL/min/1.73 m(2)) 1 Kidney damage with normal or decreased GFR 90 2 Kidney damage with mild decrease in GFR 60-89 3 Moderate decrease in GFR 30-59 4 Severe decrease in GFR 15-29 5 Kidney failure <15 (or dialysis) 3 SEE RESULT BELOW Name: BETTINA JAIN : [address]: Serena Murillo MD Acct: [id number] Unit: [id number] AGE: 58 Location: [facility] Re04/14/18 SEX: F Status: REG REF SPEC: [id number] SAMMIE: 04/14/18-[address]: Serena Murillo MD REQ: [id number] RECD: 04/14/18 STATUS: COMP _ SOURCE: URINE SPDESC: ORDERED: Urine Culture COMMENTS: [id number] Urine Source: Random Procedure Result Reported Site Urine Culture Final 04/16/18- 0806 ML No growth of clinically significant organisms * ML - Main Lab . END OF REPORT DEPARTMENT OF PATHOLOGY, [address] [place] [address] David Romero M.D. Director [facility] # [id number] 4 Because ethnic data is not always readily available, this report includes an eGFR for both -Americans and non- Americans. The National Kidney Disease Education Program (NKDEP) does not endorse the use of the MDRD equation for patients that are not between the ages of 18 and 70, are , have extremes of body size, muscle mass, or nutritional status, or are non- or non-. According to the National Kidney Foundation, irrespective of diagnosis, the stage of the disease is based on the level of kidney function: Stage Description GFR(mL/min/1.73 m(2)) 1 Kidney damage with normal or decreased GFR 90 2 Kidney damage with mild decrease in GFR 60-89 3 Moderate decrease in GFR 30-59 4 Severe decrease in GFR 15-29 5 Kidney failure <15 (or dialysis) 5 Please note the change in INR reference range effective 17. 6 [facility] Severe Sepsis and Septic Shock Management Bundle Measure requires all lactic acids initially measuring >2.0 mmol/L be repeated. 7 Please note the change in INR reference range effective 17. 8 Because ethnic data is not always readily available, this report includes an eGFR for both -Americans and non- Americans. The National Kidney Disease Education Program (NKDEP) does not endorse the use of the MDRD equation for patients that are not between the ages of 18 and 70, are , have extremes of body size, muscle mass, or nutritional status, or are non- or non-. According to the National Kidney Foundation, irrespective of diagnosis, the stage of the disease is based on the level of kidney function: Stage Description GFR(mL/min/1.73 m(2)) 1 Kidney damage with normal or decreased GFR 90 2 Kidney damage with mild decrease in GFR 60-89 3 Moderate decrease in GFR 30-59 4 Severe decrease in GFR 15-29 5 Kidney failure <15 (or dialysis) 9 Acute inflammation: >10.00 10 >100 to <200 pg/mL: likely compensated congestive heart failure (CHF) 200 to 400 pg/mL: likely moderate CHF >400 pg/mL: likely moderate to severe CHF 11 Please note the change in INR reference range effective 17. 12 Because ethnic data is not always readily available, this report includes an eGFR for both -Americans and non- Americans. The National Kidney Disease Education Program (NKDEP) does not endorse the use of the MDRD equation for patients that are not between the ages of 18 and 70, are , have extremes of body size, muscle mass, or nutritional status, or are non- or non-. According to the National Kidney Foundation, irrespective of diagnosis, the stage of the disease is based on the level of kidney function: Stage Description GFR(mL/min/1.73 m(2)) 1 Kidney damage with normal or decreased GFR 90 2 Kidney damage with mild decrease in GFR 60-89 3 Moderate decrease in GFR 30-59 4 Severe decrease in GFR 15-29 5 Kidney failure <15 (or dialysis) 13 Acute inflammation: >10.00 14 >100 to <200 pg/mL: likely compensated congestive heart failure (CHF) 200 to 400 pg/mL: likely moderate CHF >400 pg/mL: likely moderate to severe CHF 15 SEE RESULT BELOW Name: BETTINA JAIN : [address]: Tamir Germain MD Acct: [id number] Unit: [id number] AGE: 57 Location: ED Re07/22/17 SEX: F Status: DEP ER SPEC: [id number] SAMMIE: 07/22/17-1225 [facility] [address]: Tamir Germain MD REQ: [id number] RECD: 07/22/17-391 STATUS: MARIE JESSICA DR: Serena Murillo MD _ SOURCE: URINE SPDESC: ORDERED: Urine Culture Procedure Result Reported Site Urine Culture Final 07/23/17- 1159 ML Mixed melanie; possible contamination. Suggest resubmission. * ML - MAIN LAB ([facility]) . END OF REPORT * ML=Testing performed at Main Lab DEPARTMENT OF PATHOLOGY, [address] [place] [address] David Romero M.D. Director [facility] # [id number] 16 >100 to <200 pg/mL: likely compensated congestive heart failure (CHF) 200 to 400 pg/mL: likely moderate CHF >400 pg/mL: likely moderate to severe CHF 17 [facility] Severe Sepsis and Septic Shock Management Bundle Measure requires all lactic acids initially measuring >2.0 mmol/L be repeated. 18 Because ethnic data is not always readily available, this report includes an eGFR for both -Americans and non- Americans. The National Kidney Disease Education Program (NKDEP) does not endorse the use of the MDRD equation for patients that are not between the ages of 18 and 70, are , have extremes of body size, muscle mass, or nutritional status, or are non- or non-. According to the National Kidney Foundation, irrespective of diagnosis, the stage of the disease is based on the level of kidney function: Stage Description GFR(mL/min/1.73 m(2)) 1 Kidney damage with normal or decreased GFR 90 2 Kidney damage with mild decrease in GFR 60-89 3 Moderate decrease in GFR 30-59 4 Severe decrease in GFR 15-29 5 Kidney failure <15 (or dialysis) 19 Acute inflammation: >10.00 20 SEE RESULT BELOW Name: BETTINA JAIN : [address]: Ngozi Lloyd MD Acct: [id number] Unit: [id number] AGE: 57 Location: [facility] Re06/30/17 SEX: F Status: REG REF SPEC: [id number] SAMMIE: 06/30/17 [facility] DR: Ngozi Lloyd MD REQ: [id number] RECD: 07/01/176130 STATUS: MARIE JESSICA DR: Madelin Murillo MD _ SOURCE: URINE SPDESC: ORDERED: Urine Culture QUERIES: Urine Source: Random Procedure Result Reported Site Urine Culture Final 07/03/17- 0825 ML Organism 1 ESCHERICHIA COLI [place] Count 50-75,000 (Many) CFU/ML Organism 2 NORMAL MELANIE [place] Count 25-50,000 (Moderate) CFU/ML 1. ESCHERICHIA COLI [facility].I.[facility]. RX --------- ------ Ampicillin 8 S Cefazolin <=4 S Cefepime <=1 S Ceftriaxone <=1 S Ciprofloxacin <=0.25 S Gentamicin <=1 S Levofloxacin <=0.12 S Meropenem <=0.25 S Nitrofurantoin <=16 S Tetracycline <=1 S Pipercillin/Tazobactam <=4 S Trimethoprim/Sulfamethoxazole <=20 S Amoxicillin/Clavulanic Acid <=2 S Aztreonam <=1 S Contact the Microbiology Department for any additional antibiotic reporting. * ML - MAIN LAB ([facility]) . END OF REPORT * ML=Testing performed at Main Lab DEPARTMENT OF PATHOLOGY, [address] [place] [address] David Romero M.D. Director [facility] # [id number] 21 Because ethnic data is not always readily available, this report includes an eGFR for both -Americans and non- Americans. The National Kidney Disease Education Program (NKDEP) does not endorse the use of the MDRD equation for patients that are not between the ages of 18 and 70, are , have extremes of body size, muscle mass, or nutritional status, or are non- or non-. According to the National Kidney Foundation, irrespective of diagnosis, the stage of the disease is based on the level of kidney function: Stage Description GFR(mL/min/1.73 m(2)) 1 Kidney damage with normal or decreased GFR 90 2 Kidney damage with mild decrease in GFR 60-89 3 Moderate decrease in GFR 30-59 4 Severe decrease in GFR 15-29 5 Kidney failure <15 (or dialysis) 22 Acute inflammation: >10.00 23 SEE RESULT BELOW Name: BETTINA JAIN : [address]: Serena Murillo MD Acct: [id number] Unit: [id number] AGE: 57 Location: [facility] Re06/01/17 SEX: F Status: REG REF SPEC: [id number] SAMMIE: 06/01/17-[address]: Serena Murillo MD REQ: [id number] RECD: 06/01/175340 STATUS: COMP _ SOURCE: URINE SPDESC: ORDERED: Urine Culture Procedure Result Reported Site Urine Culture Final 06/02/17- 1552 ML Organism 1 CORYNEBACTERIUM STRIATUM [place] Count 50-75,000 (Many) CFU/ML * ML - MAIN LAB ([facility]) . END OF REPORT * ML=Testing performed at Main Lab DEPARTMENT OF PATHOLOGY, [address] [place] [address] David Romero M.D. Director [facility] # [id number] 25 Because ethnic data is not always readily available, this report includes an eGFR for both -Americans and non- Americans. The National Kidney Disease Education Program (NKDEP) does not endorse the use of the MDRD equation for patients that are not between the ages of 18 and 70, are , have extremes of body size, muscle mass, or nutritional status, or are non- or non-. According to the National Kidney Foundation, irrespective of diagnosis, the stage of the disease is based on the level of kidney function: Stage Description GFR(mL/min/1.73 m(2)) 1 Kidney damage with normal or decreased GFR 90 2 Kidney damage with mild decrease in GFR 60-89 3 Moderate decrease in GFR 30-59 4 Severe decrease in GFR 15-29 5 Kidney failure <15 (or dialysis) 26 [facility] Severe Sepsis and Septic Shock Management Bundle Measure requires all lactic acids initially measuring >2.0 mmol/L be repeated. 27 [facility] Severe Sepsis and Septic Shock Management Bundle Measure requires all lactic acids initially measuring >2.0 mmol/L be repeated. 28 Because ethnic data is not always readily available, this report includes an eGFR for both -Americans and non- Americans. The National Kidney Disease Education Program (NKDEP) does not endorse the use of the MDRD equation for patients that are not between the ages of 18 and 70, are , have extremes of body size, muscle mass, or nutritional status, or are non- or non-. According to the National Kidney Foundation, irrespective of diagnosis, the stage of the disease is based on the level of kidney function: Stage Description GFR(mL/min/1.73 m(2)) 1 Kidney damage with normal or decreased GFR 90 2 Kidney damage with mild decrease in GFR 60-89 3 Moderate decrease in GFR 30-59 4 Severe decrease in GFR 15-29 5 Kidney failure <15 (or dialysis) 29 >100 to <200 pg/mL: likely compensated congestive heart failure (CHF) 200 to 400 pg/mL: likely moderate CHF >400 pg/mL: likely moderate to severe CHF 30 [id number] Consistent with previous results on 01/16/17. 32 Anion gap measurement may be of limited value in the presence of any alkalosis, especially in a combined acid base disorder. . 33 Note change in reference range as of 05/10/08. The change was based on recommendations from the [place] [employer]. 34 Please note change in reference range effective 08 . 35 CHOLESTEROL INTERPRETATION: Desirable: Less than 200 MG/DL Borderline-High Risk: 200-239 MG/DL High-Risk: 240 MG/DL and over 36 UNABLE TO CALCULATE LDL TRIGLYCERIDE IS > 400 37 HDL INTERPRETATION: Undesirable: High Risk: Less than 40 MG/DL Desirable: Low Risk: Greater than 60 MG/DL Procedures Date CPT Code Description Status 06/17/2018 16868 Biopsy Skin Lesion Single Completed 05/09/2018 89530 Destruction Of Benign Lesions Any Method 1-14 lesions Completed 04/19/2018 76875 EKG Tracing & Interpretation Completed 08/01/2017 33841 EKG, Interpretation Only Completed 06/14/2017 63003 Use Of Operating Microscope Completed 06/14/2017 95022 Use Of Operating Microscope Completed 06/14/2017 64340 Collier/Facet/Foraminotomy;Vertebral Segment; Lumbar Completed 06/14/2017 49416 Collier/Facet/Foraminotomy;Vertebral Segment; Lumbar Completed 03/30/2017 26551 EKG Tracing & Interpretation Completed 03/10/2017 94012 Treadmill Interp/Report Only Completed 03/10/2017 53626 Stress Test Supervsn W/Out I/R Completed 01/04/2017 47530 EKG, Interpretation Only Completed 12/28/2016 76999 Removal Skin Tags Up To 15 Completed 12/20/2016 58677 ECHO Transthorasic Realtime 2D W Doppler & Color Flow Completed Hosp 12/20/2016 05253 EKG, Interpretation Only Completed 11/16/2016 47544 Inject/Drain Joint/Bursa Major W/O US Completed 09/30/2016 19430 EKG Tracing & Interpretation Completed 02/06/2016 80114 Left Heart Cath. Incl S/I Coronaries, Angio S/I V Gram Completed If Done 02/04/2016 87105 Treadmill Interp/Report Only Completed 02/04/2016 11033 Stress Test Supervsn W/Out I/R Completed 11/26/2015 30404 ECHO Transthoracic, Real-Time 2D With Doppler And Color Completed Flow 11/14/2015 34459 EKG Tracing & Interpretation Completed 07/18/2014 93832 Treadmill Interp/Report Only Completed 07/18/2014 65911 Stress Test Supervsn W/Out I/R Completed 06/29/2014 04675 ECHO Transthoracic, Real-Time 2D With Doppler And Color Completed Flow 06/07/2014 92873 EKG Tracing & Interpretation Completed 02/07/2009 68043 EKG Tracing & Interpretation Completed 11/12/2008 90688 Color Flow Doppler/Interp & Reprt Completed 11/12/2008 91811 Pulse Wave/Continuous-Interp.RPT Completed 11/12/2008 27788 Echocardiogram Completed 11/11/2008 98459 Treadmill Interp/Report Only Completed 11/11/2008 40726 Stress Test Supervsn W/Out I/R Completed 11/10/2008 26660 EKG, Interpretation Only Completed 01/27/2008 51843 Echocardiogram Completed 01/27/2008 94502 Pulse Doppler & Continuous Wave Completed 01/27/2008 56244 Pulse Doppler & Continuous Wave Completed 01/27/2008 89877 Color Doppler Completed 01/27/2008 86738 Color Doppler Completed 09/22/2007 08353 EKG Tracing & Interpretation Completed 09/22/2007 50802 EKG Tracing & Interpretation Completed 05/16/2007 46223 EKG Tracing & Interpretation Completed 05/05/2007 41398 Echocardiogram Completed 05/05/2007 58185 Echocardiogram Completed 05/05/2007 84579 Pulse Doppler & Continuous Wave Completed 05/05/2007 44172 Pulse Doppler & Continuous Wave Completed 05/05/2007 02732 Color Doppler Completed 03/08/2007 81558 EKG, Interpretation Only Completed 03/08/2007 66224 EKG, Interpretation Only Completed 01/10/2007 52455 EKG Tracing & Interpretation Completed 12/25/2006 95760 EKG, Interpretation Only Completed 12/24/2006 60087 Left Heart Catheterization Completed 12/24/2006 97675 Left Heart Catheterization Completed 12/24/2006 08941 Inj Proc LFT Vent/LFT Atrl Angio Completed 12/24/2006 76105 Coronary Angiography Completed 12/24/2006 10552 Coronary Angiography Completed 12/24/2006 84190 S/I/R Inj Proc Vent And Or Atrial Completed 12/24/2006 66752 Selective Coronary Angioplasty Completed 12/24/2006 17977 Selective Coronary Angioplasty Completed 12/23/2006 72285 Color Flow Doppler/Interp & Reprt Completed 12/23/2006 53798 Pulse Wave/Continuous-Interp.RPT Completed 12/23/2006 94651 Pulse Wave/Continuous-Interp.RPT Completed 12/23/2006 25535 Echocardiogram Completed 12/23/2006 55518 EKG, Interpretation Only Completed 12/23/2006 18220 EKG, Interpretation Only Completed 12/21/2006 47256 Stress ECHO Interpretation/Report Hospital Completed 12/21/2006 77157 Stress ECHO Interpretation/Report Hospital Completed 12/21/2006 08737 Treadmill Interp/Report Only Completed 12/21/2006 57134 Stress Test Supervsn W/Out I/R Completed 12/21/2006 76946 Stress Test Supervsn W/Out I/R Completed Encounters Type Date Location Provider CPT E/M Dx Office Visit 06/17/2018 [place] [place] [address] M79.3 9:30a [facility] Office Visit 06/09/2018 [facility] Internal Medicine Serena Murillo 36516 L02.211 11:50a - Miky Alavrez Z23 Z79.01 Office Visit 05/25/2018 9:50a [facility] Internal Medicine Serena Murillo 92729 Z01.818 - Miky Alvarez M24.574 R94.31 Z86.711 Z79.01 K21.9 G47.33 B37.2 M17.9 I10 Z68.44 Office Visit 05/24/2018 10:45a [facility] 36976 M24.574 Marielos Alvarez Office Visit 05/09/2018 10:20a [facility] [place] [address] L82.1 D18.01 Z78.9 L53.8 R58 R20.8 Office Visit 04/28/2018 10:30a [facility] 62864 M79.672 Of Marielos Alvarez Office Visit 04/19/2018 10:40a [facility] Of Leidy SApoorva 38422 I73.9 Joel Spencer M.D. R94.31 E66.9 G47.33 I36.1 I27.20 I37.1 Office Visit 04/14/2018 10:50a [facility] Internal Medicine Serena Murillo M.D. 39026 M54.2 Eliazar Bolaños R30.0 G57.91 L91.8 Z79.01 Z86.711 Office Visit 03/24/2018 10:45a [facility] 90303 G57.91 Marielos Alvarez Office Visit 02/03/2018 11:00a [facility] 77295 G57.91 Marielos Brown. G57.92 M48.00 M21.371 M21.372 Office Visit 01/04/2018 4:00p [facility] Internal Medicine Raffaele Hansen, 56932 I73.9 - Miky Alvarez N92.0 I10 Office Visit 12/08/2017 1:40p [facility] Evan Peralta, 69935 M51.36 Of [facility] Antonio M79.604 Office Visit 11/18/2017 10:30a [facility] Internal Medicine Serena Murillo M.D. 22592 J06.9 - Miky B37.2 Office Visit 10/15/2017 11:00a [facility] Ashley High PA-C 88884 M54.16 Of [facility] Office Visit 10/12/2017 10:50a [facility] Internal Medicine - Serena Murillo, 24040 M79.671 Miky Alvarez L60.3 E04.1 Z79.01 Office Visit 09/02/2017 10:11a [facility], Michele Anne, 87756 R19.7 Hospitalloretta Alvarez K66.8 Z86.711 I10 Office Visit 09/01/2017 10:10a [facility] Malgorzata Sutton, 65656 R19.7 Assoc, CORPORATE DEVELOPMENT MANAGER Hospitalists K66.8 I10 Z86.711 Office Visit 09/01/2017 7:00a [facility] [place] [address] K66.8 [facility] R19.7 Office Visit 08/19/2017 12:10p [facility] Internal Medicine Serena Murillo M.D. 88969 J40 - Miky Office Visit 08/05/2017 1:40p [facility] Internal Medicine Serena Murillo M.D. 40270 R91.8 - Miky E66.01 Z11.59 N92.0 Z23 Z12.31 G47.33 E04.1 Office Visit 08/01/2017 2:46p [facility],EDIE Epperson 51292 J18.9 Hospitalists E66.9 I10 Z86.711 Office Visit 07/31/2017 2:45p [facility],EDIE Epperson 66032 J18.9 Hospitalists E66.9 I10 Z86.711 Office Visit 07/30/2017 2:44p [facility],pc Sarbjit Markie, 29282 J18.9 Hospitalists N.P. E66.9 Z86.711 I10 Office Visit 07/30/2017 10:15a [facility] Ashley High PA-C 09091 Z48.89 Ambulance Paramedic M54.5 Z86.711 R07.9 R06.00 Office Visit 07/07/2017 9:15a [facility] Gricelda Rodolfovalerie, CORPORATE DEVELOPMENT MANAGER 34116 J06.9 Office Visit 06/24/2017 9:15a [facility] Ann, NASRA 39145 K52.9 Office Visit 06/17/2017 3:52p [facility], Malgorzata 43075 M54.9 Hospitalists NASRA Sutton E66.01 M54.17 Z86.711 Office Visit 06/16/2017 3:51p [facility] Malgorzatakarlos Sutton, 25256 M54.9 Assoc,pc CORPORATE DEVELOPMENT MANAGER Hospitalists M54.17 E66.01 Z86.711 Office Visit 06/15/2017 3:50p [facility] Malgorzatakarlos Sutton, 32806 M54.9 Assoc,pc CORPORATE DEVELOPMENT MANAGER Hospitalists M54.17 E66.01 Z86.711 Office Visit 06/14/2017 3:50p [facility] Malgorzatakarlos Sutton, 19560 M54.9 Assoc,pc CORPORATE DEVELOPMENT MANAGER Hospitalists M54.17 E66.01 Z86.711 Office Visit 06/13/2017 3:49p [facility], [place] [address] M54.9 Hospitalists M54.17 E66.01 Z86.711 Office Visit 06/12/2017 12:46p [facility],[place] [address] M54.9 Hospitalists M54.17 E66.01 Z86.711 Office Visit 06/11/2017 12:45p [facility],[place] [address] M54.9 Hospitalists M54.17 E66.01 Z86.711 Office Visit 06/10/2017 12:45p [facility],[place] [address] M54.9 Hospitalists M54.17 E66.01 Z86.711 Office Visit 06/09/2017 12:44p [facility],pc EDIE Sim 52312 M54.9 Hospitalists M54.17 E66.01 Z86.711 Office Visit 06/09/2017 7:00a [facility] Evan Laredo, 51082 M51.26 Of Joel Alvarez Office Visit 06/08/2017 12:44p [facility],pc EDIE Sim 70236 M54.9 Hospitalists M54.17 E66.01 Z86.711 Office Visit 06/06/2017 12:43p [facility],pc Shante Gonzalez, 52583 M54.9 Hospitalists Antonio M54.17 E66.01 Office Visit 06/02/2017 10:15a [facility] Sharyn Valenzuela M.D. 07758 M54.5 C.M.AApoorva M54.16 Office Visit 04/26/2017 10:00a [facility] Sharyn Valenzuela M.D. 36391 E66.01 C.M.A. M25.562 M25.552 M25.551 M16.11 M16.12 M17.12 M54.5 Office Visit 03/31/2017 11:50a [facility] Internal Medicine Serena Murillo, 84727 Z86.711 - Miky Alvarez Z79.01 G47.33 M25.551 E66.01 Office Visit 03/30/2017 2:40p [facility] Leidy Akers 37617 Z01.810 Joel Spencer M.D. E66.01 Z68.44 Z86.711 Z79.01 I36.1 G47.33 R94.31 Office Visit 03/11/2017 2:31p [facility] Richarbrittanie Clarke-Norman, 62415 R07.9 Assoc, EDIE Hospitalists E66.01 Z86.711 Office Visit 03/10/2017 2:31p [facility] Richar Jakea-Citlalliodin, 86614 R07.9 Assoc,pc PA Hospitalists E66.01 Z86.711 Office Visit 03/09/2017 2:30p [facility],pc Sarbjit Aden, 95201 R07.9 Hospitalists N.P. E66.01 Z86.711 Office Visit 03/09/2017 9:00a [facility] Gauri Elizabeth, 54098 R07.9 Services Of [facility] JAZMINE SUMMERS, [facility]- G47.33 Office Visit 01/28/2017 10:30a [facility] Internal Medicine - Serena Murillo M.D. 52631 D62 [facility] I26.99 E04.1 B37.9 E66.01 L03.116 J98.4 Office Visit 01/16/2017 2:32p [facility],[place] [address] D62 Hospitalists I26.99 I10 E66.01 Office Visit 01/15/2017 2:31p [facility] Malgorzata Sutton, 12495 D62 Assoc,pc CORPORATE DEVELOPMENT MANAGER Hospitalists I26.99 I10 E66.01 Office Visit 01/14/2017 2:30p [facility],pc Les Jason M.D. 74467 D62 Hospitalists I26.99 I10 E66.01 Office Visit 01/13/2017 2:30p [facility] Malgorzata Sutton, 80358 D62 Assoc,pc CORPORATE DEVELOPMENT MANAGER Hospitalists I26.99 I10 E66.01 Office Visit 01/12/2017 2:29p [facility] Malgorzata Sutton, 97525 D62 Assoc,pc CORPORATE DEVELOPMENT MANAGER Hospitalists I26.99 I10 E66.01 Office Visit 01/11/2017 4:00p [facility] Malgorzata Sutton, 57306 D62 Assoc,pc CORPORATE DEVELOPMENT MANAGER Hospitalists I26.99 E66.01 Office Visit 01/10/2017 4:00p [facility] [address] D62 Hospitalists I26.99 E66.01 Office Visit 01/09/2017 3:59p [facility],[place] [address] D62 Hospitalists I26.99 E66.01 Office Visit 01/08/2017 3:59p [facility],pc Ada Hermanch, CORPORATE DEVELOPMENT MANAGER 07399 D62 Hospitalists I26.99 E66.01 Office Visit 01/07/2017 2:57p [facility],pc Ada Hermanch, CORPORATE DEVELOPMENT MANAGER 48584 D62 Hospitalists I26.99 E66.01 Office Visit 01/06/2017 2:56p [facility],pc Ada Hermanch, CORPORATE DEVELOPMENT MANAGER 40825 D62 Hospitalists I26.99 E66.01 Office Visit 01/05/2017 2:56p [facility],pc Ada Campbell, CORPORATE DEVELOPMENT MANAGER 23756 D62 Hospitalists I26.99 E66.01 Office Visit 01/04/2017 2:55p [facility],pc Whit Ordoñez, N.P. 76262 D62 Hospitalists I26.99 E66.01 I10 Office Visit 01/03/2017 2:53p [facility],pc Whit Ordoñez, N.P. 08393 D62 Hospitalists I26.99 E66.01 Office Visit 12/30/2016 10:40a [facility] Internal [place] Ledezma, 13964 I27.82 Medicine - Lou Alvarez N92.0 I10 Office Visit 12/23/2016 11:50a [facility] Internal Medicine Serena Murillo M.D. 39321 R07.1 - [place] Z91.120 I27.82 Office Visit 12/19/2016 2:39p [facility],pc Michele Anne, 50466 I26.99 Berna Alvarez E66.01 G47.33 I10 Office Visit 11/20/2016 3:00p [facility] Internal Medicine Ken Monroe M.D. 66905 N92.1 - [place] G47.33 E66.01 L91.8 Office Visit 11/16/2016 9:00a [facility] Sharyn Valenzuela M.D. 13318 M25.562 C.M.A. M25.552 M16.12 M17.12 Office Visit 09/30/2016 3:00p [facility] Leidy Spencer, 48328 I10 Antonio E66.01 Z68.44 R94.31 Office Visit 08/05/2016 11:30a [facility] Sharyn Valenzuela M.D. 92969 M25.562 C.M.A. S82.002D M17.12 Office Visit 06/05/2016 11:30a [facility] Of Sharynvernon Valenzuela, 06471 S82.002D C.M.A. Antonio M17.12 Office Visit 05/04/2016 1:15p [facility] Of Sharynandrea Valenzuela, 53770 S82.002D C.M.A. Antonio M17.12 M25.562 Office Visit 04/27/2016 3:30p [facility] Sharyn Valenzuela M.D. 92415 M17.12 C.M.A. M25.562 S82.002A S80.12xA M25.531 M25.532 Office Visit 04/20/2016 9:00a [facility] Of Vaughn Landon M.D. 49346 M17.12 C.M.A. Office Visit 02/12/2016 4:00p [facility] Of Moisés Westbrook, 07842 R07.9 Ambulance Paramedic AT [facility], [facility] Office Visit 02/06/2016 1:13p [facility] Ngozi Lloyd, 25124 R07.9 Assoc, Hospitalists Antonio E66.01 L02.419 I10 Office Visit 02/05/2016 1:13p [facility], Ngozi Lloyd, 60559 R07.9 Hospitalists Antonio E66.01 L02.419 I10 Office Visit 02/05/2016 2:54p [facility] Of Chaz García, 65849 R07.9 Joel Alvarez R94.31 Office Visit 02/04/2016 7:39a [facility] EDIE Romero 43354 L02.411 Assoc,pc Hospitalists Office Visit 02/03/2016 1:10p [facility] Ngozi Lloyd, 05581 R07.9 Assoc, Hospitalists M.D. E66.01 I10 Office Visit 11/14/2015 11:00a [facility] Qutaybeh S. haydah, 76932 I10 M.D. R06.02 G47.33 E66.01 I25.10 Office Visit 02/25/2015 9:00a [facility] EDIE Kramer 45945 401.1 786.05 327.23 278.01 414.01 Office Visit 12/24/2014 9:30a [facility] [address] 327.23 Services Of [facility] 278.01 493.10 530.81 Office Visit 08/01/2014 9:40a [facility] Qutaybeh S. haydah, 99645 786.05 M.D. 278.01 401.1 414.01 Office Visit 07/18/2014 10:30a [facility] Qutaybeh S. Maghaydah, 04334 786.05 M.D. 786.50 278.01 Office Visit 06/07/2014 1:40p [facility] Qutaybeh S. Maghaydah, 91070 414.01 M.D. 401.1 794.31 786.50 786.05 782.3 Office Visit 03/12/2009 1:00p [facility] Qutaybeh S. Maghaydah, 86221 414.01 M.D. 401.1 426.3 Office Visit 02/07/2009 3:20p [facility] Qutaybeh S. Maghaydah, 16965 794.31 M.D. 786.50 414.01 401.1 Office Visit 02/01/2008 9:00a [facility] Qutaybeh S. Maghaydah, 97795 414.01 M.D. 401.1 415.19 427.1 424.0 424.2 Office Visit 09/22/2007 9:00a [facility] Qutaybeh S. Maghaydah, 31048 414.01 M.D. 401.1 415.19 794.31 427.1 Office Visit 05/16/2007 10:00a [facility] Qutaybeh S. Maghaydah, 70399 414.01 M.D. 401.1 415.19 411.89 Office Visit 01/10/2007 10:20a [facility] Leidy Spencer, 75059 414.01 M.D. 401.1 415.19 794.31 Plan of Care Future Appointment(s):08/05/2018 9:30 am - Cathy Hubbard MD at [facility]06/09/2018 - Serena Murillo M.D.L02.211 Cutaneous abscess of abdominal wallNew Medication:Augmentin 875-125 mgNew Labs:Wound Culture/SensiComments:we discussed you need to defer the surgery for now due to infection, also need wound care as we havearranged for you resume your coumadin and we will check the INR on up:INR check on Encounter for hyisgpbsyqpgL76.01 [facility] (current) use of anticoagulants
--- OUTSIDE RECORDS SUMMARY | 2018-06-29 15:39 | XMS REPORT ---
:1960 External Reference #:[id number] Author Organization [employer] Address [address] [place] [address] [place] [address] Phone [phone] Care Team Providers Name Role Phone Serena Murillo MD Primary Care Physician Unavailable Payers Type Date Identification Numbers Payment Provider Subscriber Medicaid Policy Number: [id number] Medicaid Bettina Jain Group Name: 1 1 [address] PayID: [id number] [place] [address] Medigap Part B Expires: 2018 Policy Number: [id number] Private Bettina Jain PayID: [id number] Commercial Effective: Policy Number: Sousa/Totalcare Bettina A 2016 [id number] Medicaid [place] Expires: 2018 PayID: [id number] [address] [address] [place] [address] Commercial Expires: 2015 Policy Number: Sousa/Totalcare Bettina A [id number] Medicaid [place] PayID: [id number] [address] [address] [place] [address] Commercial Effective: Policy Number: Sousa/Totalcare Bettina A 2006 [id number] Medicaid [place] Expires: 2007 PayID: [id number] [address] [address] [place] [address] Problems Date Description Provider Status Onset: 06/07/2014 [...] Resolved: 11/20/2016 Onset: 06/07/2014 Ischemic heart disease [place] [facility] Schedule Resolved Resolved: 11/20/2016 Onset: 06/07/2014 [...] Form Strength Qnty SIG Indications Ordering Provider Lovenox 06/07 Active Solution 150mg/ml 30ml SC every 12 hours , shannon Murillo on M.DApoorva the morning of surgery Fluconazole 05/30 Active Tablets 150mg 2tabs 1 by mouth every day Antonio Murillo Medroxyprogestero 05/02 Active Tablets 10mg once daily Unknown Dr. Rodriguez Warfarin Sodium 01/25 Active Tablets 5mg 90tab 1 tab s daily or nitin Murillo M.D. directed (managed by pmd) Nystatin 11/18 Active Powder [id number] 90gm apply to t/GM affected luisana Murillo M.D. twice a day as needed for rash x 10 days Wheelchair 08/11 Active Misc 1unit as needed fern Murillo M.D. Gabapentin 08/03 Active Capsules 300mg 120ca take one ps capsule by renetta Murillo M.D. three times daily. 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 05/25 Fluconazole 12/02 Hx Tablets 100mg 5tabs 1 tab by Serena /2018 mouth Chidi, - daily x 5 M.D. Fluconazole 11/29 Hx Tablets 150mg 3tabs 1 tab by Serena /2018 mouth Chidi, - daily x 3 M.D. Azithromycin 08/19 Hx Tablets 250mg 6tabs take 2 tab J40 on day 1 Chidi, - then 1 tab M.D. 08/24 daily x days Fluconazole 05/07 Hx Tablets 150mg 2tabs 1 by mouth every day Chidi, - M.D. 05/09 Fluconazole 02/02 Hx Tablets [...] HCL 12/29 Hx Tablets 500mg one by Unknown mouth - twice 01/27 daily for 10 days Lisinopril 12/23 Hx Tablets 5mg 1 by mouth every day Chidi, - M.D. 12/30 Xarelto 12/23 Hx Tablets 15mg 90tab 1 by mouth s bid X 20 Chidi, - days then M.D. 01/19 20 mg once a day Nystop 12/23 Hx Powder [id number] 120un apply to t/GM its affected Chidi, - area twice M.D. 04/25 a day for 10 days as needed Ferrous Gluconate 12/23 Hx Tablets 240(27Fe) 90tab once a day mg s Chidi, - M.D. 06/09 Tramadol HCL 04/27 Hx Tablets 50mg 45tab 1 tablet M17.12 s by mouth Nicolas, - every 8 M.D. 09/29 hours as needed pain Metoprolol 11/14 Hx Tablets 100mg 90tab /2 by Ken Tartrate s mouth Murphy, - twice a M.D. Advair HFA 12/24 Hx Aerosol 115-21mcg 2unit 2 puff 493.10 Cathy /2014 /Act s twice a MD Haydee - day 11/20 Naproxen 12/23 Hx Tablets 500mg 60tab 1 tablet s with food MD Haydee by mouth twice a day Prednisone 12/23 Hx Tablets 20mg 1 by mouth every day - 02/24 Doxycycline 12/23 Hx Capsules 100mg twice a Unknown Hyclate day by - mouth 02/24 Levalbuterol HCL 08/01 Hx Nebulizer 0.31mg/3M 120un every 6h L its as needed S. - Tj, 11/20 M.D. Klor-August 06/07 Hx Packet 20Meq mix and drink 1 S. - packet Tj, 06/06 daily M.D. Imdur 02/07 Hx Tablets ER 30mg 30tab 1 po qd Qutayb 24HR s S. - Tj, 06/06 M.D. Singulair 05/16 Hx Tablets 10mg 90tab 1 PO qd Qutayb s S. - Tj, 06/06 M.D. Nitroquick 01/10 Hx Tablets 0.4mg 30tab 1 S/L prn Qutayb Sub s Chest S. - Pain, Q 5 Tj, 06/06 Min. Up To M.D. 3 Tabs Warfarin Sodium 01/10 Hx Tablets 2mg as Qutayb directed S. - by Dr. Spencer, 02/07 Tobias M.D. Omeprazole 01/10 Hx Capsules 20mg [address] PO bid Qut[address] Oswald Spencer, 12/24 M.D. Metoprolol 01/10 Hx Tablets 100mg 45tab 1/2 po bid Qutayb s SApoorva Spencer, 11/14 M.D. Klor-Con M10 01/10 Hx Tablets ER 10Meq 1 po bid Qutayb S. [facility], 06/06 M.D. Lisinopril 01/10 Hx Tablets 10mg 30tab 1 tab s daily Murphy, - M.D. 12/23 Plavix 01/10 Hx Tablets 75mg 1 PO qd S. [facility], 06/06 M.D. Lasix 01/10 Hx Tablets 80mg 30tab 1 by mouth s every day . [facility], 01/14 M.D. Aspirin 01/10 Hx Tablets 81mg 90tab 1 PO qd [facility], 01/31 M.D. Control Hx 1 po [...] Unknown /0000 every day - 09/29 Oxygen Hx 3L Unknown /0000 continuous - via NC 01/14 Iron 0000 Hx Unknown /0000 - 04/25 Cyclobenzaprine Hx [...] needed for constipati on by mouth Nystatin 00 Hx Powder apply two Unknown /0000 times a - day 11/18 Benzonatate Hx Capsules 100mg To, /0000 MD Raffaele - 11/18 Medications Administered in Office Medication Date Status Form Strength Qnty SIG Indications Ordering Provider [place] Administered Injection Sharyn 40MG Vielka Valenzulea M.D. Immunizations CPT Code Status Date Vaccine Lot # [id number] Given 06/09/2018 Influenza Virus Vaccine, Quadrivalent, Split, [id number] Preservative Free 66688 Given 08/05/2017 Tdap - Tetanus/Diptheria/Acellular Pertussis [id number] Given 12/24/2014 Fluvirin Im 3Yrs And Older [id number] Refused 08/05/2017 Pneumonia Vaccine Vital Signs Date [...] Result H/L Range Note Protime W/ Inr 06/20/2018 Prothrombin Time 24.9 Inr 2.1 Protime W/ Inr 06/15/2018 Prothrombin Time 21.6 [...] Egfr Non- 118.5 >60 Egfr 143.4 >60 1 Inr/Protime 06/06/2018 Inr 2.67 High 0.77-1.02 Laboratory test 06/06/2018 Partial Thrombo Time 51.0 seconds High 26.0- 36.3 finding PTT Protime W/ Inr 05/25/2018 Prothrombin Time 28.7 Inr 2.4 Inr/Protime 05/09/2018 Inr 2.37 High 0.77-1.02 Inr/Protime 05/02/2018 Inr 1.63 High 0.77-1.02 Urine Culture And 04/14/2018 Urine Culture SEE RESULT BELOW 2 Sensitivities Ua Routine 04/14/2018 Ua Specific 1.020 [place] Ua PH 5 Ua Color dark yellow [...] MCT 103.0 >60 GFR Mainct 132.5 >60 3 Protime W/ Inr 11/12/2017 Prothrombin Time 28.9 Inr 2.4 Inr/Protime 10/26/2017 Inr 2.03 High 0.77-1.02 Protime W/ Inr 10/12/2017 Prothrombin Time 31.5 Inr 2.6 Protime W/ Inr 09/09/2017 Inr 2.97 High 0.77-1.02 4 Laboratory test finding 09/01/2017 Lactic Acid 0.9 mmol/L 0.5-2.0 5 CBC Auto Diff 09/01/2017 White Blood Count [...] 0.1 Inr/Protime 09/01/2017 Inr 2.51 High 0.77-1.02 6 Laboratory test finding 09/01/2017 Partial Thrombo Time [...] Egfr Non- 107.2 >60 Egfr 137.8 >60 7 Laboratory test finding 09/01/2017 Magnesium 1.9 mg/dL 1.9-2.7 Lipase 20 U/L 11.0-82.0 C Reactive Protein 23.31 mg/L High < 5.00 8 B-Type Natriuretic Peptide BNP 12 pg/mL 9 Inr/Protime 08/25/2017 Inr 2.10 High 0.77-1.02 10 Protime W/ Inr 08/18/2017 Inr 1.7 Protime [...] Egfr Non- 109.3 >60 Egfr 140.6 >60 11 Laboratory test finding 08/11/2017 Creatine Kinase(CK) 45 U/L 10-223 C Reactive Protein 17.40 mg/L High < 5.00 12 Troponin-I (TnI) 0.00 ng/mL <0.04 B-Type Natriuretic Peptide BNP 12 pg/mL 13 Protime W/ Inr 08/11/2017 Inr 1.8 Protime W/ Inr 08/04/2017 Inr 1.8 Protime W/ Inr 07/28/2017 Inr 1.8 Urinalysis Profile 07/22/2017 Urine Color Nataliia Urine Appearance Cloudy Urine Specific [place] 1.017 1.010-1.030 Urine pH 6.0 5-9 Urine [...] And 07/22/2017 Urine Culture SEE RESULT BELOW 14 Sensitivities CBC Auto Diff 07/22/2017 White Blood [...] 07/22/2017 B-Type Natriuretic Peptide BNP 26 pg/mL 15 Lactic Acid 1.2 mmol/L 0.5-2.0 16 Comp Metabolic Panel 07/22/2017 Sodium 138 mmol/L [...] Egfr Non- 121.5 >60 Egfr 156.3 >60 17 Laboratory test finding 07/22/2017 Magnesium 1.5 mg/dL Low 1.9-2.7 Lipase 29 U/L 11.0-82.0 C Reactive Protein 44.69 mg/L High < 5.00 18 Troponin-I (TnI) 0.00 ng/mL <0.04 TSH (Thyroid Stim Horm) 1.11 mcIU/mL 0.34-5.60 Inr/Protime 07/22/2017 Inr 1.74 High 0.89-1.11 Laboratory test finding 07/22/2017 Partial Thrombo Time 40.3 seconds High 26.0-36.3 PTT Urinalysis Profile 06/30/2017 Urine Color Nataliia Urine Appearance Turbid Urine Specific [place] 1.018 1.010-1.030 Urine pH 5.0 5-9 Urine [...] And 06/30/2017 Urine Culture SEE RESULT BELOW 19 Sensitivities CBC Auto Diff 06/06/2017 White Blood [...] Egfr Non- 101.1 >60 Egfr 130.0 >60 20 Laboratory test finding 06/06/2017 C Reactive Protein 55.60 mg/L High < 5.00 21 Erythrocyte Sed Rate 36 mm/Hr High 0-30 Urinalysis Profile 06/01/2017 Urine Color Yellow Urine Appearance Cloudy Urine Specific [place] 1.008 Low 1.010-1.030 Urine pH 6.0 5-9 [...] And 06/01/2017 Urine Culture SEE RESULT BELOW 22 Sensitivities Inr/Protime 05/25/2017 Inr 1.26 High 0.89-1.11 23 Inr/Protime 05/18/2017 Inr 1.62 High 0.89-1.11 Comp [...] Egfr Non- 124.3 >60 Egfr 159.9 >60 24 Laboratory test finding 05/18/2017 Lactic Acid 1.1 mmol/L 0.5-2.0 25 CBC Auto Diff 05/18/2017 White Blood Count [...] finding 03/09/2017 Lactic Acid 0.9 mmol/L 0.5-2.0 26 Comp Metabolic Panel 03/09/2017 Sodium 137 mmol/L [...] Egfr Non- 111.6 >60 Egfr 143.5 >60 27 Laboratory test finding 03/09/2017 Magnesium 1.8 mg/dL Low 1.9-2.7 Troponin-I (TnI) 0.01 ng/mL <0.04 B-Type Natriuretic Peptide BNP 34 pg/mL 28 CBC Auto Diff 03/09/2017 White Blood Count [...] 0.1 Inr/Protime 03/02/2017 Inr 2.53 High 0.89-1.11 29 Protime W/ Inr 02/23/2017 Inr 3.1 Protime [...] Cell Distribution Width 24 % High 10.5-15 30 Platelet Count 278 10^3/uL 150-450 Mean Platelet [...] Hip Left 2 Views And Pelvis <pending> 61105 - 28067 Comp Metabolic Panel 07/06/2008 Sodium 135 mmol/L 135-145 Potassium 4.1 mmol/L 3.5-5.0 Chloride 101 mmol/L 101-111 Co2 (Carbon Dioxide) 28.0 mmol/L 22-32 Anion Gap 6.0 mmol/L 2-11 31 Glucose 97 mg/dL 70-100 32 BUN 19 mg/dL 6-24 Creatinine 1.3 mg/dL 0.5-1.4 One Over Creatinine 0.76 BUN/Creatinine Ratio 14.6 8-20 Calcium 8.8 mg/dL 8.1-9.9 33 Total Protein 5.9 GM/DL Low 6.2-8.1 Albumin [...] Cholesterol 310 mg/dL High Less Than 200 34 Cholesterol/HDL Ratio 10.33 AVERAGE High 1-4.97 Low Density Lipoprotein (SEE NOTE) mg/dL Less Than 100 35 High Density Lipoprotein 30 mg/dL Low 40-60 36 Laboratory test finding 07/06/2008 TSH 2.94 MIU/ML [...] Redcell Distribution WDTH 15 % 10.5-15 1 Because ethnic data is not always readily [...] 15-29 5 Kidney failure <15 (or dialysis) 2 SEE RESULT BELOW Name: BETTINA JAIN : [address]: Serena Murillo MD Acct: [id number] Unit: [id number] AGE: 58 Location: [facility] Re04/14/18 SEX: F Status: REG REF SPEC: [id number] SAMMIE: 04/14/18-[address]: Serena Murillo MD REQ: [id number] RECD: 04/14/18 STATUS: COMP _ SOURCE: URINE SPDESC: ORDERED: Urine Culture COMMENTS: [id number] Urine Source: Random Procedure Result Reported Site Urine Culture Final 04/16/18- 0806 ML No growth of clinically significant organisms * ML - Main Lab . END OF REPORT DEPARTMENT OF PATHOLOGY, [address] [place] [address] David Romero M.D. Director [facility] # [id number] 3 Because ethnic data is not always readily [...] 15-29 5 Kidney failure <15 (or dialysis) 4 Please note the change in INR reference range effective 17. 5 [facility] Severe Sepsis and Septic Shock Management Bundle Measure requires all lactic acids initially measuring >2.0 mmol/L be repeated. 6 Please note the change in INR reference range effective 17. 7 Because ethnic data is not always readily [...] 15-29 5 Kidney failure <15 (or dialysis) 8 Acute inflammation: >10.00 9 >100 to <200 pg/mL: likely compensated congestive heart failure (CHF) 200 to 400 pg/mL: likely moderate CHF >400 pg/mL: likely moderate to severe CHF 10 Please note the change in INR reference range effective 17. 11 Because ethnic data is not always readily [...] 15-29 5 Kidney failure <15 (or dialysis) 12 Acute inflammation: >10.00 13 >100 to <200 pg/mL: likely compensated congestive heart failure (CHF) 200 to 400 pg/mL: likely moderate CHF >400 pg/mL: likely moderate to severe CHF 14 SEE RESULT BELOW Name: BETTINA JAIN : [address]: Tamir Germain MD Acct: [id number] Unit: [id number] AGE: 57 Location: ED Re07/22/17 SEX: F Status: DEP ER SPEC: [id number] SAMMIE: 07/22/17-[address]: Tamir Germain MD REQ: [id number] RECD: 07/22/17-1250 STATUS: COMP OTHR DR: Serena Murillo MD _ SOURCE: URINE SPDESC: ORDERED: Urine Culture Procedure Result Reported Site Urine Culture Final 07/23/17- 1159 ML Mixed melanie; possible contamination. Suggest resubmission. * ML - MAIN LAB ([facility]) . END OF REPORT * ML=Testing performed at Main Lab DEPARTMENT OF PATHOLOGY, [address] [place] [address] David Romero M.D. Director [facility] # [id number] 15 >100 to <200 pg/mL: likely compensated congestive heart failure (CHF) 200 to 400 pg/mL: likely moderate CHF >400 pg/mL: likely moderate to severe CHF 16 [facility] Severe Sepsis and Septic Shock Management Bundle Measure requires all lactic acids initially measuring >2.0 mmol/L be repeated. 17 Because ethnic data is not always readily [...] 15-29 5 Kidney failure <15 (or dialysis) 18 Acute inflammation: >10.00 19 SEE RESULT BELOW Name: BETTINA JAIN : [address]: Ngozi Lloyd MD Acct: [id number] Unit: [id number] AGE: 57 Location: [facility] Re06/30/17 SEX: F Status: REG REF SPEC: [id number] SAMMIE: 06/30/17-2099 [facility] DR: Ngozi Lloyd MD REQ: [id number] RECD: 07/01/17 STATUS: MARIE JESSICA DR: Madelin Murillo MD _ SOURCE: URINE SPDESC: ORDERED: Urine Culture QUERIES: Urine Source: Random Procedure Result Reported Site Urine Culture Final 07/03/17- 0825 ML Organism 1 ESCHERICHIA COLI Mode Count 50-75,000 (Many) CFU/ML Organism 2 NORMAL MELANIE Mode Count 25-50,000 (Moderate) CFU/ML 1. ESCHERICHIA COLI [...] antibiotic reporting. * ML - MAIN LAB ([facility]) . END OF REPORT * ML=Testing performed at Main Lab DEPARTMENT OF PATHOLOGY, [address] [place] [address] David Romero M.D. Director [facility] # [id number] 20 Because ethnic data is not always readily [...] 15-29 5 Kidney failure <15 (or dialysis) 21 Acute inflammation: >10.00 22 SEE RESULT BELOW Name: BETTINA JAIN : [address]: Serena Murillo MD Acct: [id number] Unit: [id number] AGE: 57 Location: [facility] Re06/01/17 SEX: F Status: REG REF SPEC: [id number] SAMMIE: 06/01/17-1219 [facility] DR: Serena Murillo MD REQ: [id number] RECD: 06/01/17-1301 STATUS: COMP _ SOURCE: URINE SPDESC: ORDERED: Urine Culture Procedure Result Reported Site Urine Culture Final 06/02/17- 1552 ML Organism 1 CORYNEBACTERIUM STRIATUM Mode Count 50-75,000 (Many) CFU/ML * ML - MAIN LAB ([facility]) . END OF REPORT * ML=Testing performed at Main Lab DEPARTMENT OF PATHOLOGY, [address] [place] [address] David Romero M.D. Director [facility] # [id number] 23 [id number] 24 Because ethnic data is not always readily [...] 15-29 5 Kidney failure <15 (or dialysis) 25 [facility] Severe Sepsis and Septic Shock Management Bundle Measure requires all lactic acids initially measuring >2.0 mmol/L be repeated. 26 [facility] Severe Sepsis and Septic Shock Management Bundle Measure requires all lactic acids initially measuring >2.0 mmol/L be repeated. 27 Because ethnic data is not always readily [...] 15-29 5 Kidney failure <15 (or dialysis) 28 >100 to <200 pg/mL: likely compensated congestive heart failure (CHF) 200 to 400 pg/mL: likely moderate CHF >400 pg/mL: likely moderate to severe CHF 29 [id number] 30 Consistent with previous results on 01/16/17. 31 Anion gap measurement may be of limited value in the presence of any alkalosis, especially in a combined acid base disorder. . 32 Note change in reference range as of 05/10/08. The change was based on recommendations from the [employer]. 33 Please note change in reference range effective 08 . 34 CHOLESTEROL INTERPRETATION: Desirable: Less than 200 MG/DL Borderline-High Risk: 200-239 MG/DL High-Risk: 240 MG/DL and over 35 UNABLE TO CALCULATE LDL TRIGLYCERIDE IS > 400 36 HDL INTERPRETATION: Undesirable: High Risk: Less than 40 MG/DL Desirable: Low Risk: Greater than 60 MG/DL Procedures Date CPT Code Description Status 06/17/2018 89383 Biopsy Skin Lesion Single Completed 05/09/2018 31147 Destruction Of Benign Lesions Any Method 1-14 lesions Completed 04/19/2018 90401 EKG Tracing & Interpretation Completed 08/01/2017 16099 EKG, Interpretation Only Completed 06/14/2017 75849 Use Of Operating Microscope Completed 06/14/2017 19793 Use Of Operating Microscope Completed 06/14/2017 75906 Collier/Facet/Foraminotomy;Vertebral Segment; Lumbar Completed 06/14/2017 16596 Collier/Facet/Foraminotomy;Vertebral Segment; Lumbar Completed 03/30/2017 90077 EKG Tracing & Interpretation Completed 03/10/2017 58475 Treadmill Interp/Report Only Completed 03/10/2017 68680 Stress Test Supervsn W/Out I/R Completed 01/04/2017 44387 EKG, Interpretation Only Completed 12/28/2016 59598 Removal Skin Tags Up To 15 Completed 12/20/2016 88588 ECHO Transthorasic Realtime 2D W Doppler & Color Flow Completed Hosp 12/20/2016 84882 EKG, Interpretation Only Completed 11/16/2016 70866 Inject/Drain Joint/Bursa Major W/O US Completed 09/30/2016 05974 EKG Tracing & Interpretation Completed 02/06/2016 32064 Left Heart Cath. Incl S/I Coronaries, Angio S/I V Gram Completed If Done 02/04/2016 56256 Treadmill Interp/Report Only Completed 02/04/2016 84824 Stress Test Supervsn W/Out I/R Completed 11/26/2015 55841 ECHO Transthoracic, Real-Time 2D With Doppler And Color Completed Flow 11/14/2015 44101 EKG Tracing & Interpretation Completed 07/18/2014 29072 Treadmill Interp/Report Only Completed 07/18/2014 88773 Stress Test Supervsn W/Out I/R Completed 06/29/2014 22007 ECHO Transthoracic, Real-Time 2D With Doppler And Color Completed Flow 06/07/2014 54350 EKG Tracing & Interpretation Completed 02/07/2009 46193 EKG Tracing & Interpretation Completed 11/12/2008 52539 Color Flow Doppler/Interp & Reprt Completed 11/12/2008 53047 Pulse Wave/Continuous-Interp.RPT Completed 11/12/2008 32968 Echocardiogram Completed 11/11/2008 99558 Treadmill Interp/Report Only Completed 11/11/2008 91179 Stress Test Supervsn W/Out I/R Completed 11/10/2008 27626 EKG, Interpretation Only Completed 01/27/2008 29926 Echocardiogram Completed 01/27/2008 04631 Pulse Doppler & Continuous Wave Completed 01/27/2008 85114 Pulse Doppler & Continuous Wave Completed 01/27/2008 89456 Color Doppler Completed 01/27/2008 82661 Color Doppler Completed 09/22/2007 45010 EKG Tracing & Interpretation Completed 09/22/2007 75373 EKG Tracing & Interpretation Completed 05/16/2007 07256 EKG Tracing & Interpretation Completed 05/05/2007 51104 Echocardiogram Completed 05/05/2007 22354 Echocardiogram Completed 05/05/2007 17069 Pulse Doppler & Continuous Wave Completed 05/05/2007 71230 Pulse Doppler & Continuous Wave Completed 05/05/2007 42325 Color Doppler Completed 03/08/2007 60199 EKG, Interpretation Only Completed 03/08/2007 52338 EKG, Interpretation Only Completed 01/10/2007 52627 EKG Tracing & Interpretation Completed 12/25/2006 05640 EKG, Interpretation Only Completed 12/24/2006 59187 Left Heart Catheterization Completed 12/24/2006 01133 Left Heart Catheterization Completed 12/24/2006 82028 Inj Proc LFT Vent/LFT Atrl Angio Completed 12/24/2006 32918 Coronary Angiography Completed 12/24/2006 07874 Coronary Angiography Completed 12/24/2006 43532 S/I/R Inj Proc Vent And Or Atrial Completed 12/24/2006 64939 Selective Coronary Angioplasty Completed 12/24/2006 71174 Selective Coronary Angioplasty Completed 12/23/2006 08171 Color Flow Doppler/Interp & Reprt Completed 12/23/2006 38641 Pulse Wave/Continuous-Interp.RPT Completed 12/23/2006 36643 Pulse Wave/Continuous-Interp.RPT Completed 12/23/2006 28152 Echocardiogram Completed 12/23/2006 96051 EKG, Interpretation Only Completed 12/23/2006 98412 EKG, Interpretation Only Completed 12/21/2006 33470 Stress ECHO Interpretation/Report Hospital Completed 12/21/2006 92711 Stress ECHO Interpretation/Report Hospital Completed 12/21/2006 50076 Treadmill Interp/Report Only Completed 12/21/2006 10937 Stress Test Supervsn W/Out I/R Completed 12/21/2006 33042 Stress Test Supervsn W/Out I/R Completed Encounters Type Date Location Provider CPT E/M Dx Office Visit 06/09/2018 [facility] Internal Medicine Serena Murillo, 68190 L02.211 11:50a - Miky Alvarez Z23 Z79.01 Office Visit 05/25/2018 9:50a [facility] Internal Medicine Serena Murillo 59437 Z01.818 Eliazar Bolaños M.D. M24.574 R94.31 Z86.711 Z79.01 K21.9 G47.33 B37.2 M17.9 I10 Z68.44 Office Visit 05/24/2018 10:45a [facility], 79712 M24.574 C.MPrakash Alvarez Office Visit 05/09/2018 10:20a [facility] [place] [address] L82.1 D18.01 Z78.9 L53.8 R58 R20.8 Office Visit 04/28/2018 10:30a [facility] [place], 51087 M79.672 Of Marielos Alvarez Office Visit 04/19/2018 10:40a [facility] Leidy Akers [address] I73.9 Joel Spencer M.D. R94.31 E66.9 G47.33 I36.1 I27.20 I37.1 Office Visit 04/14/2018 10:50a [facility] Internal Medicine Serena Murillo M.D. 84272 M54.2 - Miky R30.0 G57.91 L91.8 Z79.01 Z86.711 Office Visit 03/24/2018 10:45a [facility], 34178 G57.91 Marielos Alvarez Office Visit 02/03/2018 11:00a [facility], 91631 G57.91 Marielos Alvarez G57.92 M48.00 M21.371 M21.372 Office Visit 01/04/2018 4:00p [facility] Internal Medicine Raffaele Hansen, 84519 I73.9 - Miky Alvarez N92.0 I10 Office Visit 12/08/2017 1:40p [facility] Evan Peralta, 73521 M51.36 Of [facility] Antonio M79.604 Office Visit 11/18/2017 10:30a [facility] Internal Medicine Serena Murillo M.D. 39107 J06.9 - Miky B37.2 Office Visit 10/15/2017 11:00a [facility] Ashley High PA-C 32779 M54.16 Of [facility] Office Visit 10/12/2017 10:50a [facility] Internal Medicine - Serena Murillo 47834 M79.671 Miky Alvarez L60.3 E04.1 Z79.01 Office Visit 09/02/2017 10:11a [facility] ,diana Anne, 97102 R19.7 Hospitalloretta Alvarez K66.8 Z86.711 I10 Office Visit 09/01/2017 10:10a [place] Jaycee Sutton, 48743 R19.7 Assoc,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 K66.8 I10 Z86.711 Office Visit 09/01/2017 7:00a [facility] [place] [address] K66.8 [facility] R19.7 Office Visit 08/19/2017 12:10p [facility] Internal Medicine Serena Murillo M.D. 75470 J40 - [place] Office Visit 08/05/2017 1:40p [facility] Internal Medicine Serena Murillo M.D. 99640 R91.8 - [place] E66.01 Z11.59 N92.0 Z23 Z12.31 G47.33 E04.1 Office Visit 08/01/2017 2:46p [place] [facility],pc EDIE Sim 65888 J18.9 Hospitalists E66.9 I10 Z86.711 Office Visit 07/31/2017 2:45p [place] [facility],EDIE Epperson 42659 J18.9 Hospitalists E66.9 I10 Z86.711 Office Visit 07/30/2017 10:15a [facility] High PA-C 29573 Z48.89 [facility] M54.5 Z86.711 R07.9 R06.00 Office Visit 07/30/2017 2:44p [facility],diana [place]en, 53887 J18.9 Hospitalists N.P. E66.9 Z86.711 I10 Office Visit 07/07/2017 9:15a [facility] [place] [address] J06.9 Office Visit 06/24/2017 9:15a [facility] [place] [address] K52.9 Office Visit 06/17/2017 3:52p [place] [facility],diana Mcgarry 98119 M54.9 Hospitalists NASRA Sutton E66.01 M54.17 Z86.711 Office Visit 06/16/2017 3:51p [place] Jaycee Sutton 29363 M54.9 Assoc,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 M54.17 E66.01 Z86.711 Office Visit 06/15/2017 3:50p [place] Jaycee Sutton, 49030 M54.9 Assoc,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 M54.17 E66.01 Z86.711 Office Visit 06/14/2017 3:50p Madelin Sutton, 62083 M54.9 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,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 M54.17 E66.01 Z86.711 Office Visit 06/13/2017 3:49p [facility] [address] M54.9 Hospitalists M54.17 E66.01 Z86.711 Office Visit 06/12/2017 12:46p [facility] [address] M54.9 Hospitalists M54.17 E66.01 Z86.711 Office Visit 06/11/2017 12:45p [facility] [address] M54.9 Hospitalists M54.17 E66.01 Z86.711 Office Visit 06/10/2017 12:45p [facility] [address] M54.9 Hospitalists M54.17 E66.01 Z86.711 Office Visit 06/09/2017 12:44p [facility] EIDE Sim 24592 M54.9 Hospitalists M54.17 E66.01 Z86.711 Office Visit 06/09/2017 7:00a Neurosurgery Services Evan Peralta, 09380 M51.26 Of [facility] Antonio Office Visit 06/08/2017 12:44p [facility] EDIE Sim 34810 M54.9 Hospitalists M54.17 E66.01 Z86.711 Office Visit 06/06/2017 12:43p [facility] Shante Gonzalez, 17295 M54.9 Hospitalloretta Alvarez M54.17 E66.01 Office Visit 06/02/2017 10:15a [facility] Sharyn Valenzuela M.D. 13226 M54.5 C.M.Jennifer M54.16 Office Visit 04/26/2017 10:00a [facility] Sharyn Valenzuela M.D. 36345 E66.01 C.M.A. M25.562 M25.552 M25.551 M16.11 M16.12 M17.12 M54.5 Office Visit 03/31/2017 11:50a [facility] Internal Medicine Serena Murillo, 71553 Z86.711 - Miky Alvarez Z79.01 G47.33 M25.551 E66.01 Office Visit 03/30/2017 2:40p [facility] Of Leidy Akers 85284 Z01.810 Joel Spencer M.D. E66.01 Z68.44 Z86.711 Z79.01 I36.1 G47.33 R94.31 Office Visit 03/11/2017 2:31p [facility] Richar Rosado, 18938 R07.9 Assoc, [place] Hospitalists E66.01 Z86.711 Office Visit 03/10/2017 2:31p [facility] Richar Rosado, 53685 R07.9 Assoc, [place] Hospitalists E66.01 Z86.711 Office Visit 03/09/2017 2:30p [facility] Assoc,pc Sarbjit Aden, 11335 R07.9 Hospitalists N.P. E66.01 Z86.711 Office Visit 03/09/2017 9:00a [facility]ology [facility] Sleep Gauri Elizabeth, 44778 R07.9 Services Of [facility] KRISTOPHER RN, [facility]- G47.33 Office Visit 01/28/2017 10:30a [facility] Internal Medicine - Serena Murillo M.D. 93032 D62 Miky I26.99 E04.1 B37.9 E66.01 L03.116 J98.4 Office Visit 01/16/2017 2:32p [facility] [address] D62 Hospitalists I26.99 I10 E66.01 Office Visit 01/15/2017 2:31p [facility] Malgorzata Sutton, 46026 D62 Assoc,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 I26.99 I10 E66.01 Office Visit 01/14/2017 2:30p [facility] Les Jason M.D. 20283 D62 Hospitalists I26.99 I10 E66.01 Office Visit 01/13/2017 2:30p [facility] Malgorzata Sutton, 88264 D62 Assoc,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 I26.99 I10 E66.01 Office Visit 01/12/2017 2:29p [facility] Malgorzata Sutton, 36273 D62 Assoc,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 I26.99 I10 E66.01 Office Visit 01/11/2017 4:00p [facility] Malgorzata Sutton, 72343 D62 Assoc,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 I26.99 E66.01 Office Visit 01/10/2017 4:00p [facility] Ada Campbell, ELECTRONICS TEST ENGINEER 22441 D62 Hospitalists I26.99 E66.01 Office Visit 01/09/2017 3:59p [facility] Ada Campbell, ELECTRONICS TEST ENGINEER 49586 D62 Hospitalists I26.99 E66.01 Office Visit 01/08/2017 3:59p [facility] Ada Campbell, ELECTRONICS TEST ENGINEER 48764 D62 Hospitalists I26.99 E66.01 Office Visit 01/07/2017 2:57p [facility] Ada Campbell, ELECTRONICS TEST ENGINEER 32485 D62 Hospitalists I26.99 E66.01 Office Visit 01/06/2017 2:56p [facility] Ada Campbell, ELECTRONICS TEST ENGINEER 16514 D62 Hospitalists I26.99 E66.01 Office Visit 01/05/2017 2:56p [facility] Ada Campbell, ELECTRONICS TEST ENGINEER 08634 D62 Hospitalists I26.99 E66.01 Office Visit 01/04/2017 2:55p [facility] Whit Ordoñez, N.P. 17276 D62 Hospitalists I26.99 E66.01 I10 Office Visit 01/03/2017 2:53p [facility] Whit Ordoñez, N.P. 60894 D62 Hospitalists I26.99 E66.01 Office Visit 12/30/2016 10:40a [facility] Verónica Ledezma, 75067 I27.82 Medicine - Lou Alvarez N92.0 I10 Office Visit 12/23/2016 11:50a [facility] Internal Medicine Serena Murillo M.D. 88480 R07.1 - [place] Z91.120 I27.82 Office Visit 12/19/2016 2:39p [facility], Michele Anne, 75769 I26.99 Berna Alvarez E66.01 G47.33 I10 Office Visit 11/20/2016 3:00p [facility] Internal Medicine Ken Monroe M.D. 36079 N92.1 - [place] G47.33 E66.01 L91.8 Office Visit 11/16/2016 9:00a [facility] Sharyn Valenzuela M.D. 87478 M25.562 C.M.AApoorva M25.552 M16.12 M17.12 Office Visit 09/30/2016 3:00p [facility] Leidy Spencer, 50398 I10 Antonio E66.01 Z68.44 R94.31 Office Visit 08/05/2016 11:30a [facility] Sharyn Valenzuela M.D. 63513 M25.562 C.M.AApoorva S82.002D M17.12 Office Visit 06/05/2016 11:30a [facility] Sharyn Valenzuela, 43764 S82.002D C.MPrakash Alvarez M17.12 Office Visit 05/04/2016 1:15p [facility] Sharyn Valenzuela 43142 S82.002D C.MPrakash Alvarez M17.12 M25.562 Office Visit 04/27/2016 3:30p [facility] Sharyn Valenzuela M.D. 34144 M17.12 C.M.AApoorva M25.562 S82.002A S80.12xA M25.531 M25.532 Office Visit 04/20/2016 9:00a [facility] Of Vaughn Landon M.D. 13355 M17.12 C.M.A. Office Visit 02/12/2016 4:00p [facility] Of Moisés Westbrook 30981 R07.9 Dehydrogenation Operator Head AT [facility], FACC, FSCAI Office Visit 02/06/2016 1:13p [facility] Ngozi Lloyd, 53019 R07.9 Assoc,pc Hospitalists M.DApoorva E66.01 L02.419 I10 Office Visit 02/05/2016 1:13p [facility] Ngozi Gabino, 22585 R07.9 Hospitalists MLilian E66.01 L02.419 I10 Office Visit 02/05/2016 2:54p [facility] Of Chaz García, 18008 R07.9 Dehydrogenation Operator Head Antonio R94.31 Office Visit 02/04/2016 7:39a [facility] EDIE Romero 88276 L02.411 Assoc,pc Hospitalists Office Visit 02/03/2016 1:10p [facility] Ngozi Gabino, 26238 R07.9 Assoc,pc Hospitalists MLilian E66.01 I10 Office Visit 11/14/2015 11:00a [facility] [place], 968[address] I10 M.D. R06.02 G47.33 E66.01 I25.10 Office Visit 02/25/2015 9:00a [facility] EDIE Kramer 60772 401.1 786.05 327.23 278.01 414.01 Office Visit 12/24/2014 9:30a [facility] [place] [address] 327.23 Services Of [facility] 278.01 493.10 530.81 Office Visit 08/01/2014 9:40a [facility] [place]utay[place]. [place], 55656 786.05 M.D. 278.01 401.1 414.01 Office Visit 07/18/2014 10:30a [facility] Qutaybeh S. Maghayddarwin, 58513 786.05 M.D. 786.50 278.01 Office Visit 06/07/2014 1:40p [facility] Qutay[place]. [place], 56141 414.01 M.D. 401.1 794.31 786.50 786.05 782.3 Office Visit 03/12/2009 1:00p [facility] Leidy Spencer, 86794 414.01 M.D. 401.1 426.3 Office Visit 02/07/2009 3:20p [facility] Leidy Spencer, 37110 794.31 M.D. 786.50 414.01 401.1 Office Visit 02/01/2008 9:00a [facility] Leidy Spencer, 29913 414.01 M.D. 401.1 415.19 427.1 424.0 424.2 Office Visit 09/22/2007 9:00a [facility] Leidy Spencer, 06831 414.01 M.D. 401.1 415.19 794.31 427.1 Office Visit 05/16/2007 10:00a [facility] Leidy Spencer, 19286 414.01 M.D. 401.1 415.19 411.89 Office Visit 01/10/2007 10:20a [facility] Leidy Spencer, 92350 414.01 M.D. 401.1 415.19 794.31 Plan of Care Future Appointment(s):08/05/2018 9:30 am - Cathy Hubbard MD at [facility]06/09/2018 - Serena Murillo M.D.L02.211 Cutaneous abscess of abdominal wallNew Medication:Augmentin 875-125 mgNew Labs:Wound Culture/SensiComments:we discussed you need to defer the surgery for now due to infection, also need wound care as we havearranged for you resume your coumadin and we will check the INR on up:INR check on Encounter for ibujfwzbqpbeN11.01 custodial (current) use of anticoagulants
[2018-06-29] MEDS ORDERED: Vancomycin(*) 1,500 MG in NS 0.9% 250 ML* 250 ML IVPB ONE (15:43)
[2018-06-29 15:46] LABS: ABS Basophils 0 10^3/ul (0-0.2); ABS Eosinophils 0.2 10^3/ul (0-0.6); ABS Lymphocytes 1.3 10^3/ul (1.0-4.8); ABS Monocytes 0.6 10^3/ul (0-0.8); ABS Neutrophils 4.5 10^3/ul (1.5-7.7); ABS Nucleated RBC 0 10^3/ul; Eosinophil % 3.5 % (0-6); Hematocrit 44 % (35-47); Hemoglobin 14.7 g/dl (12.0-16.0); Lymphocyte % 19.6 % (25-47); Mean Corpuscular HGB Conc 34 g/dl (31-36); Mean Corpuscular Hemoglobin 30 pg (27-31); Mean Corpuscular Volume 90 fL (80-97); Mean Platelet Volume 9.2 um3 (7.4-10.4); Nucleated Red Blood Cells % 0; Platelet Count 220 10^3/ul (150-450); Red Blood Count 4.87 10^6/ul (4.00-5.40); Red Cell Distribution Width 15 % (10.5-15); White Blood Count 6.6 10^3/ul (3.5-10.8)
[2018-06-29 16:04] LABS: EGFR Non-African American 121.1 (>60)
--- NOTE | 2018-06-29 16:33 | RAD ---
Indication: LEFT lower quadrant abdominal wound. Assess for abscess. Comparison: September 01, 2017 CT. Technique: Ultrasound in region of clinical concern at the open LEFT lower quadrant abdominal wound. REPORT AND IMPRESSION: #. Obese body habitus with large pannus limits assessment. #. Extensive dermal and subcutaneous tissue plane edema. No loculated abscess collection evident. #. Visualized superficial veins with demonstrated flow on color Doppler.
[2018-06-29] MEDS ORDERED: Acetaminophen TAB* 325 MG PO ONE (16:45)
[2018-06-29] MEDS ORDERED: Acetaminophen TAB* 325 MG PO PRN ×2 (16:59→17:49)
[2018-06-29] MEDS ORDERED: Enoxaparin(*) 40 MG/0.4 ML SYR SUBCUT SCH (17:00)
[2018-06-29] MEDS ORDERED: Ondansetron INJ* 2 MG/ML VIAL IV PRN (17:35)
[2018-06-29] MEDS ORDERED: oxyCODONE/Acetamin 5/325 MG* TAB PO PRN (17:35)
[2018-06-29] MEDS ORDERED: Al Hydrox/Mg Hydrox/Simet LIQ* 30 ML UDC PO PRN (17:35)
[2018-06-29] MEDS ORDERED: Albuterol 2.5 MG/3 ML NEB.SOL* (0.083%) INH PRN (17:35)
[2018-06-29] MEDS ORDERED: NS 0.9% 1000 ML* 1,000 ML IV SCH (17:45)
[2018-06-29] MEDS ORDERED: Albuterol HFA INHALER* 8 gm MDI INH PRN (17:48)
[2018-06-29] MEDS ORDERED: Nystatin TOP POWDER* 15 GM BTL TOPICAL PRN (17:48)
[2018-06-29] MEDS ORDERED: Piperacillin/Tazobac ADVAN(*) 3.375 GM in NS 0.9% 100 ML* 100 ML IVPB ONE (17:50)
[2018-06-29] MEDS ORDERED: Zosyn per Pharmacy* NOTE FOLLOW UP SCH (18:00)
[2018-06-29 18:05] LABS: INR 2.35 (0.77-1.02)
[2018-06-29] MEDS ORDERED: Famotidine TAB* 20 MG ONE (21:12)
[2018-06-29] MEDS: Gabapentin CAP(*) 100 MG PO SCH (21:16)
[2018-06-29] MEDS: Metoprolol Tartrate TAB* 25 MG PO SCH (21:17)
[2018-06-29] MEDS: Morphine VIAL* 4 MG/ML VIAL (1 ml vial) IV PRN (21:17)
[2018-06-29] MEDS: ZOSYN 3.375 GM Q8H per EXTENDED INFUSION IVPB SCH ×2 (21:17)
[2018-06-29] MEDS: Famotidine TAB* 20 MG PO SCH ×2 (21:18→22:11)
--- NOTE | 2018-06-29 21:50 | HP ---
CC: Dr. Murillo; Dr. Campa * ADMISSION HISTORY AND PHYSICAL: DATE OF ADMISSION: 06/29/18 PATIENT OF ADMITTING HOSPITALIST: Dr. Miesha Lu.* (DICTATED BY EDIE MAY) PRIMARY CARE PROVIDER: Dr. Serena Murillo. PRIMARY SURGEON: Dr. Hernan Campa. CHIEF COMPLAINT: Left abdominal wall wound with drainage. HISTORY OF PRESENT ILLNESS: Mrs. Jain is a 58-year-old female with past medical history significant for obstructive sleep apnea, hypertension, GERD, obesity, and pulmonary embolus who has been followed in the wound clinic for the past month or so due to a small wound to her left abdominal wall. The patient presented to the emergency room today with complaints of increasing discomfort and drainage from the wound. She tells me that she has been on amoxicillin for the past couple of weeks and eventually finished taking it over the weekend. She noticed increased pain, swelling, redness, and discharge from her left abdominal wall wound. She apparently has been followed by Dr. Campa in the wound clinic; however denied any prior surgical incision and drainage or debridement of that wound. She is morbidly obese and frequently gets fungal infection under the breast and under the large pannus. She could not recall how she started having that wound except maybe it started as a small "pimple" that got progressively worse and bigger and eventually opened up and started draining about a month ago. She did also describe tactile fever, sweating, and chills but denies any chest pain, nausea, vomiting, or any other associated symptoms. She presented to the emergency room today for evaluation and had laboratory workup that revealed normal white count and her vitals revealed no evidence of tachycardia, hypotension, or significant fever. She also had a chemistry panel that revealed normal electrolytes and LFTs. She had an abdominal ultrasound earlier today that revealed no evidence of abscess in the area; however, there was some extensive dermal and subcutaneous tissue edema consistent with probably cellulitis. Given her ongoing symptoms and the findings of the ultrasound of the abdominal wall, we were asked to see the patient to consider admission for IV antibiotics. ED provider had already contacted Dr. Campa who agreed on admission and will follow up with the patient in consultation and also planning to take her to the operating room tomorrow for possible debridement of abdominal wall wound. The patient tells me that she has been on Coumadin 5 mg daily and I will check her INR today. She was supposed to have a foot surgery in late May, for which she has doses of Lovenox at home for bridging of her Coumadin; however, she did not take any Lovenox doses at home prior to presentation. Her INR is pending at the time of admission. PAST MEDICAL HISTORY: As mentioned above significant for: 1. PE for which she has been chronically on Coumadin. 2. Uterine bleeding. 3. Obstructive sleep apnea. 4. Obesity. 5. GERD. 6. Hypertension. 7. Left bundle branch block. 8. Asthma. 9. Spinal stenosis. PAST SURGICAL HISTORY: 1. L4-5 decompressive laminectomy. 2. Hernia repair. 3. Cholecystectomy. 4. Tonsillectomy. 5. section. 6. Vertical banding gastroplasty. HOME MEDICATIONS: Her medications at home include: 1. Albuterol MDI 2 puffs inhaled q.4 hours as needed for shortness of breath. 2. Ferrous gluconate 325 mg p.o. daily. 3. Diflucan 150 mg p.o. daily. 4. Neurontin 100 mg p.o. t.i.d. 5. Medroxyprogesterone 10 mg p.o. daily. 6. Nystatin powder applied to affected area b.i.d. 7. Prilosec 20 mg p.o. daily. 8. Zantac 300 mg p.o. daily. 9. Warfarin 5 mg p.o. daily. 10. Metoprolol 12.5 mg p.o. b.i.d. ALLERGIES: She is allergic to BUGWEED and DUST MITES. FAMILY HISTORY: Noncontributory. SOCIAL HISTORY: The patient lives alone. She is a nonsmoker. Denies alcohol or recreational drug use. Her surrogate decision maker is her daughter, "Didier" and she wishes to be a full code. REVIEW OF SYSTEMS: See HPI, otherwise 12 points review of system were examined and they were essentially negative. PHYSICAL EXAMINATION GENERAL: She is a morbidly obese middle-aged female with BMI above 60 in no acute distress or discomfort at the time of admission. VITAL SIGNS: Reveal temperature of 99.4, pulse of 67, blood pressure 112/75, respirations of 20 with O2 sat of 93% on room air. HEENT: Head is normocephalic, atraumatic. Sclerae anicteric. PERRLA. EOMs intact. Oropharynx is pink and moist. NECK: Supple. Trachea midline. No cervical adenopathy or thyromegaly. LUNGS: There are decreased breath sounds throughout but no rales, wheezes, or rhonchi. HEART: Regular rate and rhythm without rubs, murmurs, or gallops. BACK: With normal curvature. No CVA tenderness. BREASTS: Exam deferred at this time. ABDOMEN: Soft and nondistended, obese with large pannus noted. To the left side of her pannus, there is a small wound measuring approximately 5 cm in diameter and probed down to 5 cm deep. There is an area of erythema and induration surrounding the wound that is tender on palpation and feel warm to touch, but there was no bleeding or purulent discharge. Wound cultures were obtained and results pending at this time. EXTREMITIES: Without cyanosis, clubbing, or edema. NEUROLOGIC: She is awake, alert, and oriented x3. Handgrip is equal bilaterally and sensation is intact. RECTAL: Exam deferred at this time. LABORATORY WORKUP: CBC with white count of 6000, hemoglobin 14.7, hematocrit 44, and platelets 220. Chemistry with sodium of 140, potassium 4.2, chloride 106, CO2 of 30, BUN of 11, and creatinine of 0.5. LFTs within normal limits. Glucose of 113. CRP elevated at 39.3. IMPRESSION: A 58-year-old female with multiple medical issues including super morbid obesity and hypertension, who presented to the emergency room with complaints of worsening of abdominal wall wound for which she has been followed by wound clinic for approximately a month, found to have evidence of cellulitis for which she will be admitted under hospitalist services for the following assessment and plan. 1. Abdominal wall cellulitis and pannitis. The patient has failed outpatient antibiotic therapy and will be admitted for IV antibiotics. She will continue on vancomycin for which she had loading dose in the emergency room and I will add Zosyn to her regimen. We will await wound culture to select appropriate antibiotic coverage. Per Dr. Campa's request, the patient will be n.p.o. after midnight for possible debridement of abdominal wound in the operating room tomorrow. Again, I do not have an INR upon admission; however, it is ordered and her Coumadin will be on hold until I get a result. 2. Hypertension. I will continue her medication from home. 3. Gastroesophageal reflux disease. The patient will continue her PPI coverage. 4. Obstructive sleep apnea. She has been noncompliant with CPAP. We will try to use it here in the hospital. 5. History of dysfunctional uterine bleeding. I will keep her on her medroxyprogesterone as prescribed. 6. History of pulmonary embolus. The patient will be covered for the time being with Coumadin, INR on hold, and we will follow up accordingly. 7. Code status: She is a full code. 8. Disposition: Admit to medical services for IV antibiotics, possible surgical debridement in the morning. TIME SPENT: Approximately 60 minutes spent admitting this patient for which greater than 50% of that time taking history and performing physical exam. I went on and discussed the case with my attending, who agreed to plan of care. EDIE MAY [id number]/[facility] #: [id number] DIVINA
[2018-06-30] MEDS: Morphine VIAL* 4 MG/ML VIAL (1 ml vial) IV PRN (00:32)
[2018-06-30] MEDS: Vancomycin(*) 1,250 MG in NS 0.9% 250 ML* 250 ML IVPB SCH ×2 (02:37→09:55)
[2018-06-30] MEDS: ZOSYN 3.375 GM Q8H per EXTENDED INFUSION IVPB SCH ×2 (05:54)
[2018-06-30] MEDS ORDERED: Vancomycin per Pharmacy* NOTE FOLLOW UP SCH (06:00)
[2018-06-30] MEDS ORDERED: Omeprazole CAP* 20 MG PO SCH (07:30)
[2018-06-30 07:48] LABS: ABS Basophils 0 10^3/ul (0-0.2); ABS Eosinophils 0.1 10^3/ul (0-0.6); ABS Lymphocytes 1.1 10^3/ul (1.0-4.8); ABS Monocytes 0.4 10^3/ul (0-0.8); ABS Neutrophils 3.3 10^3/ul (1.5-7.7); ABS Nucleated RBC 0 10^3/ul; Hematocrit 41 % (35-47); Hemoglobin 13.5 g/dl (12.0-16.0); Lymphocyte % 21.7 % (25-47); Mean Corpuscular HGB Conc 33 g/dl (31-36); Mean Corpuscular Hemoglobin 30 pg (27-31); Mean Corpuscular Volume 90 fL (80-97); Mean Platelet Volume 9.1 um3 (7.4-10.4); Nucleated Red Blood Cells % 0.2; Platelet Count 190 10^3/ul (150-450); Red Blood Count 4.56 10^6/ul (4.00-5.40); Red Cell Distribution Width 15 % (10.5-15); White Blood Count 4.9 10^3/ul (3.5-10.8)
[2018-06-30 07:55] LABS: INR 2.08 (0.77-1.02)
[2018-06-30 08:04] LABS: EGFR Non-African American 95.3 (>60)
[2018-06-30] MEDS ORDERED: Ferrous Gluconate TAB* 324 MG TAB PO SCH (09:00)
[2018-06-30] MEDS ORDERED: Fluconazole 100 MG TAB* TAB PO SCH (09:00)
[2018-06-30] MEDS ORDERED: medroxyPROGESTERone TAB* 10 MG PO SCH (09:00)
[2018-06-30] MEDS: Gabapentin CAP(*) 100 MG PO SCH ×2 (09:55→19:15)
[2018-06-30] MEDS: Metoprolol Tartrate TAB* 25 MG PO SCH (09:57)
--- NOTE | 2018-06-30 13:50 | CONS ---
CC: [facility]; [facility]; Dr. Serena Murillo. SURGICAL CONSULTATION REPORT: DATE OF CONSULT: 06/30/18 LOCATION: The patient was seen in room 407. PRIMARY CARE DOCTOR: Dr. Serena Murillo. HISTORY OF PRESENT ILLNESS: Ms. Jain is a 58-year-old woman morbidly obese female known to me aft er seen on two occasions at the wound center for an abdominal wall wound within her pannus consistent with a focal panniculitis. The patient had been on antibiotics up until recently. She has been getting wound services on a wee kly basis with visiting nurses coming to do dressing changes since the patient is unable to reach lyn t portion of her abdomen due to her BMI over 60. The patient's visiting nurses came yesterday, Wednesday, for the purpose of doing a dressing change a nd noted that there was more redness around the area. The patient was complaining of more abdominal pain and she was recommended to go to the emergency room. In the emergency room, the patient was onl y briefly evaluated and I was directly contacted for the plan regarding this patient who has had appo intment scheduled for two days following. I was not able to see the patient for another hour and onimmanuel y discussed the possibility of needing excisional debridement in the operating room and the possibili ty of needing IV antibiotics if there was cellulitis and possibly workup to rule out bacteremia. Thi s discussion led to admission by the hospitalist for a planned surgery by me on Ms. Jain. The patient was started on vancomycin. Coumadin was held. She was maintained NPO. When I saw her morning, we started the diet promptly and she was evaluated. The redness had subsided. Focussed t he examination of the wound on the abdomen she had is mostly unchanged, 1 x 1 x 8 cm deep. No discha rge. Surrounding dermatitis was appreciated. It was a little tender to the touch. The patient was t darron throughout the abdomen as well. Labs showed normal white count. Wound culture was consistent with MRSA. There are no resulted blood cultures in the record. IMPRESSION AND PLAN: Focal panniculitis in a patient with BMI of 60. This represents a slow healing wound that may require panniculectomy where partial resection and this is something I could performe d, but the patient may benefit from plastic surgery input. However, my recommendation is at this shahzad e is that the patient has only been treated by the wound center for exactly two weeks and we may be better off with just topical wound care from now along with antibiotics. This does represent a MRSA infection that may slowly heal given the surrounding tissue and the patient's body habitus, but it is the more prudent direction rather than wide excisional debridement with a risk of possibly causing a bigger wound that may be slowly healing. I discussed this with the patient. She understands. Plan will be for antibiotics, which I feel Bactrim would be a reasonable discharge choice. She had been c ontinue to follow up with the wound center and we will make another appointment for the next week, as I see no reason for her to come tomorrow. This does represent a chronic wound with rapid resolving cellulitis according to the record and the patient shows no evidence of bacteremia. We will continue with our chronic wound care and hopefully have a discussion with visiting nurses about expectations with regard to Mrs. Jain going forward. [id number]/[facility] #: [id number]
[2018-06-30] MEDS ORDERED: Vancomycin Trough Check NOTE FOLLOW UP ONE (15:30)
[2018-06-30 16:40] VITALS: BP 123/63
--- NOTE | 2018-07-01 07:53 | DS ---
CC: Dr. Murillo; Dr. Campa* DISCHARGE SUMMARY: DATE OF ADMISSION: 06/29/18 DATE OF DISCHARGE: 06/30/18 PRIMARY CARE PROVIDER: Dr. Murillo. DISCHARGE DIAGNOSIS: Left abdominal wall wound, which is chronic, tunneling with drainage and methicillin-resistant Staphylococcus aureus positive cultures. SECONDARY DIAGNOSES: 1. History of pulmonary embolus, on Coumadin. 2. History of uterine bleeding. 3. Obstructive sleep apnea. 4. Obesity. 5. Gastroesophageal reflux disease. 6. Hypertension. 7. Left bundle branch block. 8. Asthma. 9. History of spinal stenosis. MEDICATIONS AT DISCHARGE: Include: 1. Doxycycline 100 mg 3 times a day for 10 days. 2. Albuterol inhaler on a p.r.n. basis. 3. Ferrous gluconate p.r.n. 325 mg daily. 4. Diflucan 150 mg daily. 5. Neurontin 100 mg 3 times a day. 6. Provera 10 mg daily. 7. Nystatin powder apply to affected areas on the skin p.r.n. 8. Omeprazole 20 mg daily. 9. Zantac 300 mg daily. 10. Coumadin 5 mg daily. 11. Metoprolol tartrate 12.5 mg b.i.d. LABORATORY DATA AND STUDIES PERFORMED DURING THE HOSPITAL STAY: On 06/30/18, sodium of 141, potassium 4.3, carbon dioxide 32, BUN 10, creatinine 0.64. White blood cell count of 4.9, hemoglobin 13.5, hematocrit of 41, and platelets of 190. Abdominal ultrasound obtained on 06/29/18, impression: "Obese body habitus with large pannus limit assessment. Extensive dermal and subcutaneous tissue plane edema, no loculated abscess collection evident. Visualized superficial veins with demonstrated flow on color Doppler." The patient was consulted by Dr. Campa during the hospital stay. HOSPITALIZATION COURSE: Bettina Jain is a 58-year-old morbidly obese female , who presented to the hospital complaining of draining wound from her left abdominal wall. She had seen Dr. Campa from wound care in the past. The patient was placed on overnight observation. Her abdominal wound discharge was positive for MRSA. The patient was seen by Dr. Campa in consultation. Initially , surgical exploration was entertained but the patient had no visible ultrasound collection for the need of immediate surgery. Due to the patient being anticoagulated on Coumadin, Dr. Campa recommended further management as outpatient with antibiotics and follow up at the wound care center. I curb-sided the infectious disease specialist and the patient was going to be placed on doxycycline 100 mg 3 times a day due to her BMI of above 60. PHYSICAL EXAM AT THE TIME OF DISCHARGE: Blood pressure of 135/75, heart rate of 76 and regular, respiratory rate 20, oxygen saturation 94% on room air, temperature 97.1. General: The patient is a very pleasant 58-year-old female, who is in no acute distress with BMI of 63. The patient is alert and oriented x3. HEENT: Head atraumatic, normocephalic. Eyes: Pupils equal and reactive to light and accommodation. Oropharynx clear. Mucosa moist. Neck: Supple. No JVD, no bruit bilaterally. Cardiovascular: Regular rate and rhythm. No murmur. Respiratory: Clear to auscultation bilaterally. Abdomen: Very obese with large pannus, soft, nontender. Bowel sounds are present in all 4 quadrants. The patient has a chronic appearing wound with an orifice of approximately 3 x 3 cm in the left lower quadrant. The wound depth was not explored during the evaluation. The wound is draining serous, scantly purulent discharge. Extremities: There is what appears to be chronic lymphedema +2 bilaterally. There is no clubbing or cyanosis. Neuro Evaluation: Speech is clear. Cranial nerves II through XII grossly intact. Motor strength is 5/5 bilaterally. The patient is being discharged home with recommendation to follow up with Dr. Campa next week and follow up with Dr. Murillo in 4 to 7 days. The patient's INR on the day of discharge was 2.08. The patient was set up with visiting nurse association at 4 visits at home. The patient was recommended to have iodoform wound packing 3 times a week to be set up with visiting nurses. Her last packing before the patient's discharge is going to be performed today. [id number]/[facility] #: [id number] HEALTH SYSTEMCosmo
== END 2018-06-30 19:30 | disposition home or self-care (01) ==
LOC: ED 14:52 → MED 16:59 → INTOOBSV 16:59
PROVIDERS: ADMIT Internal Medicine; ATTEND Internal Medicine
DX: S31.104A Unspecified open wound of abdominal wall, left lower quadrant without penetration into peritoneal cavity, initial encounter (principal); B95.62 Methicillin resistant Staphylococcus aureus infection as the cause of diseases classified elsewhere; Z79.01 Long term (current) use of anticoagulants; Z86.711 Personal history of pulmonary embolism; R10.9 Unspecified abdominal pain; N93.9 Abnormal uterine and vaginal bleeding, unspecified; G47.33 Obstructive sleep apnea (adult) (pediatric); E66.9 Obesity, unspecified; K21.9 Gastro-esophageal reflux disease without esophagitis; I10 Essential (primary) hypertension; I44.7 Left bundle-branch block, unspecified; J45.909 Unspecified asthma, uncomplicated; M48.07 Spinal stenosis, lumbosacral region; Z95.9 Presence of cardiac and vascular implant and graft, unspecified; Z87.891 Personal history of nicotine dependence
CPT/HCPCS: 36415; 76705; 80048; 80053; 83605; 85025; 85610; 86140; 87040; 87070; 87077; 87186; 87205; 87640; 87641; 96365; 96366; 96375; 99285; A9270-GY; G0378; J1650; J2270; J2405; J2543; J3370

== ENCOUNTER 2018-07-02 10:20 | Emergency (ER) | payer MEDICAID ==
[2018-07-02 11:13] LABS: ABS Basophils 0.1 10^3/ul (0-0.2); ABS Eosinophils 0.2 10^3/ul (0-0.6); ABS Lymphocytes 1.6 10^3/ul (1.0-4.8); ABS Monocytes 0.5 10^3/ul (0-0.8); ABS Neutrophils 4.3 10^3/ul (1.5-7.7); ABS Nucleated RBC 0 10^3/ul; Eosinophil % 3.4 % (0-6); Hematocrit 39 % (35-47); Hemoglobin 12.9 g/dl (12.0-16.0); Lymphocyte % 23.5 % (25-47); Mean Corpuscular HGB Conc 34 g/dl (31-36); Mean Corpuscular Hemoglobin 30 pg (27-31); Mean Corpuscular Volume 89 fL (80-97); Mean Platelet Volume 8.9 um3 (7.4-10.4); Nucleated Red Blood Cells % 0.1; Platelet Count 225 10^3/ul (150-450); Red Blood Count 4.32 10^6/ul (4.00-5.40); Red Cell Distribution Width 15 % (10.5-15); White Blood Count 6.7 10^3/ul (3.5-10.8)
[2018-07-02 12:19] LABS: INR 1.73 (0.77-1.02)
[2018-07-02 14:09] VITALS: BP 124/70
--- NOTE | 2018-07-02 15:32 | ED ---
GI/ HPI - HPI Summary HPI Summary: Pt. is a 58-year-old female who presents emergency department for vaginal bleeding 2-3 weeks. Patient states been having heavy bleeding intermittently over the last 10 years. Oral contraceptives and provera. She is also anticoagulated with Coumadin for PEs. Patient states she is changing a heavy pad every 2 hours. She states that bleeding has been heavier today and she is passing clots and having cramping. She did symptoms of lightheadedness. Symptoms are moderate in severity. No current modifying factors. Patient has an appointment with her latex spooler, Dr. Raines, on . Pt. states RECR[facility]MENT CONSULTANT will not due hysterectomy secondary to her weight. Pt. states she has needed transfusions in the past. No current modifying factors. - History of Current Complaint Chief Complaint: EDVaginalBleeding Time Seen by Provider: 07/02/18 10:49 Stated Complaint: VAGINAL BLEEDING Hx Obtained From: Patient Hx Last Menstrual Period: N/A Pain Intensity: 0 - Additional Pertinent History Primary Care Physician: [id number] - Allergy/Home Medications Allergies/Adverse Reactions: Allergies Allergy/AdvReac Type Severity Reaction Status Date / Time buckwheat Allergy Rash Verified 07/02/18 10:32 environmental Allergy Sneezing Uncoded 07/02/18 10:32 PMH/Surg Hx/FS Hx/Imm Hx Previously Healthy: Yes Endocrine/Hematology History: Reports: Hx Anemia Denies: Hx Diabetes, Hx Unexplained Bleeding Cardiovascular History: Reports: Hx Angina, Hx Deep Vein Thrombosis, Hx Embolism , Hx Hypertension, 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; tricuspid gisele disease, Other Cardiovascular Problems/Disorders - left BBB, chronic edema Denies: Hx Aneurysm, Hx Angioplasty, Hx Auto Implanted Cardiovert Defib, Hx Cardiac Arrest, Hx Cardiomegaly, Hx Congenital Heart Disease, Hx Congestive Heart Failure, Hx Coronary Artery Disease, Hx Hypercholesterolemia, Hx Hypotension, Hx Myocardial Infarction, Hx Pacemaker/ICD, Hx Peripheral Vascular Disease, Hx Rheumatic Fever, Hx Syncope Respiratory History: Reports: Hx Asthma, Hx Pulmonary Embolism, Hx Sleep Apnea, Other Respiratory Problems/Disorders - PE hx 2004 liyah Denies: Hx Chronic Obstructive Pulmonary Disease (COPD) GI History: Reports: Hx Gall Bladder Disease - removed, Hx Gastroesophageal Reflux Disease, Other GI Disorders - stomach stapled History: Denies: Hx Renal Disease Musculoskeletal History: Reports: Hx Back Problems - L4-5 lami a few months ago , Other Musculoskeletal History - chronic knee pain Sensory History: Reports: Hx Contacts or Glasses Denies: Hx Cataracts, Hx Eye Injury, Hx Eye Prosthesis, Hx Glaucoma, Hx Legally Blind, Hx Macular Degeneration, Hx Vision Problem, Hx Hearing Aid, Other Sensory Impairments Opthamlomology History: Reports: Hx Contacts or Glasses Denies: Hx Cataracts, Hx Eye Injury, Hx Eye Prosthesis, Hx Glaucoma, Hx Legally Blind, Hx Macular Degeneration, Hx Vision Problem, Other Sensory Impairments Neurological History: Denies: Other Neuro Impairments/Disorders Psychiatric History: Denies: Hx Panic Disorder - Surgical History Surgery Procedure, Year, and Place: CARDIAC CATH, TONSILECTOMY, , RIGHT ABD HERNIA REPAIR X3, STOMACH STAPLING, CHOLECYSTECTOMY. [facility]-05/2017 - Immunization History Date of Tetanus Vaccine: Unk Date of Influenza Vaccine: None Infectious Disease History: No Infectious Disease History: Denies: Hx Clostridium Difficile, Hx Hepatitis, Hx Human Immunodeficiency Virus (HIV), Hx of Known/Suspected MRSA, Hx Shingles, Hx Tuberculosis, Hx Known/ Suspected VRE, Hx Known/Suspected VRSA, History Other Infectious Disease, Traveled Outside the [place] in Last 30 Days - Family History Known Family History: Positive: Cardiac Disease - father with [place] and in 80's, Hypertension - father - Social History Occupation: Unemployed Lives: With Family Alcohol Use: Rare Hx Substance Use: No Substance Use Type: Reports: None Hx Tobacco Use: Yes Smoking Status (MU): Former Smoker Type: Cigarettes Have You Smoked in the Last Year: No Review of Systems Positive: other - Pelvic pain and vaginal bleeding All Other Systems Reviewed And Are Negative: Yes Physical Exam Triage Information Reviewed: Yes Vital Signs On Initial Exam: Initial Vitals Pulse Pulse Ox 73 95 07/02/18 10:28 07/02/18 10:28 Vital Signs Reviewed: Yes Appearance: Positive: Well-Appearing - Pt. lying in bed in NAD. Friend present. Skin: Positive: Warm, Dry Head/Face: Positive: Normal Head/Face Inspection Eyes: Positive: Normal, EOMI Neck: Positive: Supple Abdomen Description: Positive: Other: - Morbidly obese Pelvic Exam: Positive: Other - Exam performed with tech in room, Jerri. Speculum exam reveals mild active bleeding from cervix. Neurological: Positive: Normal, CN Intact II-III Psychiatric: Positive: Affect/Mood Appropriate Diagnostics - Vital Signs Vital Signs Temp Pulse Resp BP Pulse Ox 07/02/18 14:08 99 F 71 20 124/70 95 07/02/18 13:50 124/70 07/02/18 12:29 68 141/80 94 07/02/18 12:00 74 94 07/02/18 11:59 68 123/62 92 07/02/18 11:29 70 127/78 93 07/02/18 11:04 73 93 07/02/18 10:59 75 157/75 96 07/02/18 10:29 99.7 F 74 20 150/88 94 07/02/18 10:28 73 95 - Laboratory Lab Results: Lab Results 07/02/18 07/02/18 Range/Units 11:04 11:04 WBC 6.7 (3.5-10.8) 10^3/ul RBC 4.32 (4.00-5.40) 10^6/ul Hgb 12.9 (12.0-16.0) g/dl Hct 39 (35-47) % MCV 89 (80-97) fL MCH 30 (27-31) pg MCHC 34 (31-36) g/dl RDW 15 (10.5-15) % Plt Count 225 (150-450) 10^3/ul MPV 8.9 (7.4-10.4) um3 Neut % (Auto) 65.1 (38-83) % Lymph % (Auto) 23.5 L (25-47) % [place] % (Auto) 7.2 H (0-7) % Eos % (Auto) 3.4 (0-6) % Baso % (Auto) 0.8 (0-2) % Absolute Neuts (auto) 4.3 (1.5-7.7) 10^3/ul Absolute Lymphs (auto) 1.6 (1.0-4.8) 10^3/ul Absolute Monos (auto) 0.5 (0-0.8) 10^3/ul Absolute Eos (auto) 0.2 (0-0.6) 10^3/ul Absolute Basos (auto) 0.1 (0-0.2) 10^3/ul Absolute Nucleated RBC 0 10^3/ul Nucleated RBC % 0.1 INR (Anticoag Therapy) 1.73 H (0.77-1.02) Result Diagrams: 07/02/18 11:04 Lab Statement: Any lab studies that have been ordered have been reviewed, and results considered in the medical decision making process. GIGU Course/Dx - Course Course Of Treatment: Pt. presenting for evaluation of ongoing vaginal bleeding. She is afebrile with stable blood pressure. We'll check CBC and INR. On exam she has mild active bleeding. H and H stable at 12.9 and 39. INR 1.73. Explained to pt. she will need to f.u with RECRUITMENT CONSULTANT next week. Pt. is upset that there is nothing we can do in the ER for her bleeding. Explained to pt. her labs and vitals are very stable and she is already on OCP and provera. DC home. To return to ER if sxs change or worsen. - Diagnoses Provider Diagnoses: Menorrhagia with irregular cycle Discharge - Sign-Out/Discharge Documenting (check all that apply): Patient Departure - Discharge Plan Condition: Good Disposition: HOME Patient Education Materials: Menorrhagia (ED) Referrals: Amee Arceo [Scribe] - Serena Murillo MD [Primary Care Provider] - Hubert Raines MD [Medical Doctor] - Additional Instructions: Call Dr. Raines's office Wednesday morning for a sooner appointment Return to ER if symptoms change or worsen - Billing Disposition and Condition Condition: GOOD Disposition: Home
== END 2018-07-02 15:11 | disposition home or self-care (01) ==
LOC: ED 10:20
DX: N92.1 Excessive and frequent menstruation with irregular cycle (principal); Z87.891 Personal history of nicotine dependence
CPT/HCPCS: 36415; 85025; 85610; 99282

== ENCOUNTER 2018-10-10 11:42 | Inpatient (IN) | payer MEDICAID ==
[~2018-10-10 11:42] MED LIST changes: -Benzonatate CAP* 100 MG PO ONE; +Buffered Lidocaine 1% SYRIN* 1 ML/SYRINGE INTRADERM ONE; +Dexamethasone IV* 4 MG/ML 1 ML (4 MG) IV SLOW PU ONE; +Famotidine IV* 10 MG/ML 2 ML (20 mg) IV ONE; +Lactated Ringers 1000 ML Bag* 1,000 ML IV SCH; +Lidocaine 2% PF * 5 ML VIAL ONE; +Propofol* 10 MG/ML 20 ML BTL ONE; +Rocuronium* 10 MG/ML VIAL ONE; +Succinylcholine* 20 MG/ML 10 ML VIAL ONE; +fentaNYL* 50 MCG/ML 2 ML VIAL (100 MCG VIAL) ONE; +fentaNYL* 50 MCG/ML 5 ML VIAL (250 MCG VIAL) ONE
--- OUTSIDE RECORDS SUMMARY | 2018-10-10 11:47 | XMS REPORT | Continuity of Care Document ---
:1960 External Reference #:[id number] Author Name Lesly Velarde Care Team Providers Name Role Phone Serena Murillo MD Primary Care Physician Unavailable Payers Type Date Identification Numbers Payment Provider Subscriber Policy Number: [id number] Medicaid Bettina Jain Group Name: 1 1 [address] PayID: [id number] [place] [address] Expires: 2018 Policy Number: [id number] Private Bettina Jain PayID: [id number] Effective: 2016 Policy Number: [employer] Medicaid Bettina Jain [id number] Expires: 2018 PayID: [id number] [address] [address] [place] [address] Expires: 2015 Policy Number: [employer] Medicaid Bettina Jain [id number] PayID: [id number] [address] [address] [place] [address] Effective: 2006 Policy Number: [employer] Medicaid Bettina Jain [id number] Expires: 2007 PayID: [id number] [address] [place] [id number] Advance Directives Description No Information Available Problems Date Description Provider Status Onset: 06/07/2014 [...] Active Onset: 12/08/2017 Degeneration of lumbar Evan Antonio Peralta Active intervertebral disc Onset: 06/07/2014 Chest pain Delores Dunbar M.D. Inactive: 01/28/2017 Onset: 06/07/2014 Coronary arteriosclerosis Leidy Spencer M.D. Resolved Resolved: 11/20/2016 Onset: 06/07/2014 Electrocardiogram abnormal Leidy Spencer M.D. Resolved Resolved: 11/20/2016 Onset: 06/07/2014 Ischemic heart disease [place] [facility] Schedule Resolved Resolved: 11/20/2016 Onset: 06/07/2014 Abnormal results of Leidy Spencer M.D. 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 Resolved Resolved: 11/20/2016 Onset: 11/14/2015 Essential hypertension Leidy Spencer M.D. Resolved Resolved: 11/20/2016 Onset: 04/27/2016 Closed fracture of patella Sharyn Nicolas, M.D. Resolved Resolved: 05/25/2018 Onset: 11/20/2016 Dysfunctional [...] 52 Social History Type Date Description Comments Sex Unknown Marital Status Lives With Alone Occupation Disabled Tobacco Use Start: Unknown End: Former Cigarette Smoker Unknown Cigarette Use Quit 25 Years Ago Quit 1988 - Smoking Status Reviewed: 10/06/18 Former Cigarette Smoker ETOH Use Rarely consumes alcohol Tobacco Use Start: Unknown End: Patient is a former Unknown smoker Recreational Drug Use Never Used Drugs Exercise Type/Frequency Exercises rarely Allergies, Adverse Reactions, Alerts Date Description Reaction Status Severity Comments 03/30/2017 Buckwheat Allergenic Extract Active per patient 04/19/2018 Perfumes Active 04/19/2018 Environmental Active 12/24/2014 NKDA Inactive Medications Medication Date Status Form Strength Qnty SIG Indications Ordering Provider Clotrimazole/Beta 10/06 Active Cream 1-0.05% 135gm apply to B37.2 Serena methasone affected Damir Murillo M.D. underneath right breast x 10 days Alcohol Swabs 10/06 Active Pads 70% 100un as needed Serena its Antonio Murillo Lovenox 10/03 Active Solution 150mg/ml 30ml sc every 12 hours , shannon Hansen on M.DApoorva the morning of surgery Mapap 08/29 Active Tablets 500mg 60tab Take Two Zaneb s Tablets By MD Carmen Mouth Every 8 Hours Gabapentin 08/16 Active Capsules 100mg 60cap Take Two s Capsules Chidi, By Mouth M.DApoorva Once Daily AT Night Only Inr 07/28 Active vns to draw inr Chidi weekly MLilian Tylenol Extra 07/26 Active Tablets 500mg 60tab Take 2 M75.41 Zaneb s every 8 MD Carmen hours Ferrous Gluconate 06/27 Active Tablets 324(38Fe) 60tab -take one mg s tablet by Chidi mouth M.DApoorva twice a day ( takes 1 tablet po daily) Warfarin Sodium 01/25 Active Tablets 5mg 90tab 1 tab s daily or nitin Murillo M.D. directed (managed by pmd) Nystatin 11/18 Active Powder [id number] 90gm apply to t/GM affected luisana Murillo M.D. twice a day as needed for rash x 10 days Wheelchair 08/11 Active Misc 1unit as needed s Antonio Murillo Walker [place] 01/19 Active Misc -09/27" 1unit as needed Serena Wheels/ Liana Gates M.D. Holes/-09/27" Ventolin HFA 01/16 Active Aerosol 108(90Bas 18uni 2 puffs by /2016 e) ts mouth q4 Ordering mcg/Act hrs as Provider needed Metoprolol 01/16 Active Tablets 25mg 30tab Take Serena Tartrate s One-Half Chidi Tablet By Antonio Mouth Every 12 Hours Ranitidine HCL 12/23 Active Tablets 300mg 90tab 1 by mouth s every day Antonio Murillo Permethrin 08/24 Hx Cream 5% 1unit apply to B86 s all body Chidi - once neck M.D. 09/05 repeat in 1 week Chlorhexidine 07/19 Hx Liquid 2% 354ml shower B95.62 Serena Gluconate daily x 7 Chidi - days M.D. 08/16 Mupirocin 07/19 Hx Ointment 2% 22gm apply thin B95.62 layer Chidi, - inside the M.D. 08/16 nar daily x 5 days Ferrous Gluconate 06/23 Hx Tablets 240(27Fe) 90tab once a Day mg s Chidi, - M.D. 06/27 Augmentin 06/09 Hx Tablets 875-125mg 20tab 1 tab by L02.211 s mouth Chidi, - twice a M.D. Lovenox 06/07 Hx Solution 150mg/ml 30ml SC every 12 hours , Chidi, - hold on M.D. 07/19 morning of surgery Fluconazole 05/30 Hx Tablets 150mg 2tabs 1 by mouth every day Chidi, - M.D. 07/19 Medroxyprogestero 05/02 Hx Tablets 10mg once daily Unknown ne Dr. Eliazar Rodriguez 07/19 Nitrofurantoin 04/14 Hx Capsules 100mg 10cap 1 by mouth Serena Macrocryst s twice a Chidi, - day M.D. 04/19 Fluconazole 04/14 Hx Tablets 150mg 2tabs 1 by mouth every day Chidi, - M.D. 05/25 Fluconazole 12/02 Hx Tablets 100mg 5tabs 1 tab by mouth Chidi, - daily x 5 M.D. Fluconazole 11/29 Hx Tablets 150mg 3tabs 1 tab by mouth Chidi, - daily x 3 M.D. Azithromycin 08/19 Hx Tablets 250mg 6tabs take 2 tab J40 on day 1 Chidi, - then 1 tab M.D. 08/24 daily x days Gabapentin 08/03 Hx Capsules 300mg 120ca take one ps capsule by Chidi, - mouth in M.D. 08/16 Am And , 2 cap in lunch time Fluconazole 05/07 Hx Tablets 150mg 2tabs 1 [...] once a day Nystop 12/23 Hx Powder [id number] 120un apply to t/GM its affected Chidi, - area twice M.D. 04/25 a day 10 days as needed Ferrous Gluconate 12/23 Hx Tablets 240(27Fe) 90tab once a day mg s Chidi, - M.D. 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 01/10 hours needed pain Metoprolol 11/14 Hx Tablets 100mg 90tab 1/2 by Ken Tarmike s mouth Fer, - twice a M.D. Advair HFA 12/24 Hx Aerosol 115-21mcg 2unit 2 puff 493.10 Cathy /2015 /Act s twice a MD Haydee - day 11/20 Naproxen 12/23 Hx Tablets 500mg 60tab 1 tablet Cathy s with food MD Haydee by mouth [...] Tablets ER 30mg 30tab 1 po qd 24HR s S. - jT, 06/06 M.D. Singulair 05/16 Hx Tablets 10mg 90tab 1 PO qd Qutayb s S. - Tj, 06/06 M.D. Nitroquick 01/10 Hx Tablets 0.4mg 30tab 1 S/L prn Quyb Sub s Chest S. - Pain, Q 5 Tj, 06/06 Min. Up To M.D. 3 Tabs Warfarin Sodium 01/10 Hx Tablets 2mg as directed S. - by Dr. Spencer, 02/07 Tobias M.D. Omeprazole 01/10 Hx Capsules 20mg 1 PO bid Qutayb DR Oswald Spencer, 12/24 M.D. Metoprolol 01/10 Hx Tablets 100mg 45tab 1/2 po bid Qutayb s Oswald Spencer, 11/14 M.D. /2015 Klor-Con M10 01/10 Hx Tablets ER 10Meq 1 po bid Qutayb S. Eliazar Spencer, 06/06 M.D. Lisinopril 01/10 Hx Tablets 10mg 30tab 1 tab s daily [place], - M.D. 12/23 Plavix 01/10 Hx Tablets 75mg 1 PO qd S. [facility], 06/06 M.D. Lasix 01/10 Hx Tablets 80mg 30tab 1 by mouth s every day . [facility], 01/14 M.D. Aspirin 01/10 Hx Tablets 81mg 90tab 1 [facility] Control Hx 1 po bid [...] /0000 continuous - via NC 01/14 Iron 00/00 Hx Unknown /0000 - 04/25 Cyclobenzaprine Hx [...] needed for constipati on by mouth Nystatin 0000 Hx Powder apply two Unknown /0000 times a - day 11/18 Benzonatate Hx Capsules 100mg To, /0000 MD Raffaele - 11/18 Omeprazole Hx Capsules 20mg 90cap 1 by mouth Serena /0000 DR shirley every day Eliazar Murillo M.D. 07/19 Medications Administered in Office Medication Date Status Form Strength Qnty SIG Indications Ordering Provider Triamcinolone 07/26/ Administered Injection Zaneb (Kenalog) 2017 MD Carmen Depomedrol 40MG 11/16/ Administered Injection Sharyn 2016 Antonio Valenzuela Immunizations CPT Code Status Date Vaccine Lot # [id number] Given 06/09/2018 Influenza Virus Vaccine, Quadrivalent, Split, [id number] Preservative Free [id number] Given 08/05/2017 Tdap - Tetanus/Diptheria/Acellular Pertussis [id number] Given 12/24/2014 Fluvirin Im [id number] And Older [id number] Refused 08/05/2017 Pneumonia Vaccine Vital Signs Date Vital Result Comment 10/06/2018 1:38pm Height 62.5 inches 5'2.50" Weight 351.38 lb with out shoes Heart Rate 70 /min BP Systolic 100 mmHg R forearm BP Diastolic 82 mmHg R forearm BP Systolic Sitting 92 mmHg L forearm BP Diastolic Sitting 70 mmHg L forearm Respiratory Rate 16 /min BMI (Body Mass Index) 63.2 kg/m2 10/06/2018 10:50am Height 62.5 inches 5'2.50" Weight 345.00 lb Heart Rate 73 /min BP Systolic Sitting 126 mmHg BP Diastolic Sitting 90 mmHg O2 % BldC Oximetry 96 % BMI (Body Mass Index) 62.1 kg/m2 09/29/2018 11:10am Height 62.5 inches 5'2.50" Weight 345.00 lb Heart Rate 68 /min Respiratory Rate 18 /min Body Temperature 99.2 F Pain Level 0 BMI (Body Mass Index) 62.1 kg/m2 09/06/2018 2:14pm Height 62.5 inches 5'2.50" Weight 344.50 lb Heart Rate 72 /min BP Systolic Sitting 134 mmHg Right forearm reg cuff BP Diastolic Sitting 100 mmHg Right forearm reg cuff Respiratory Rate 18 /min O2 % BldC Oximetry 95 % On Ra BMI (Body Mass Index) 62.0 kg/m2 08/24/2018 12:22pm Height 62.5 inches 5'2.50" Weight 335.00 lb Heart Rate 83 /min BP Systolic Sitting 125 mmHg BP Diastolic Sitting 82 mmHg Body Temperature 99.3 F O2 % BldC Oximetry 96 % BMI (Body Mass Index) 60.3 kg/m2 08/16/2018 1:49pm Heart Rate 73 /min BP Systolic Sitting 120 mmHg BP Diastolic Sitting 80 mmHg O2 % BldC Oximetry 94 % 07/26/2018 10:51am Height 62.5 inches 5'2.50" Weight 335.00 lb Heart Rate 62 /min BP Systolic Sitting 128 mmHg BP Diastolic Sitting 84 mmHg Pain Level 7 BMI (Body Mass Index) 60.3 kg/m2 07/19/2018 9:53am Heart Rate 78 /min BP Systolic Sitting 118 mmHg wrist BP Diastolic Sitting 80 mmHg wrist O2 % BldC Oximetry 96 % 06/09/2018 11:44am Height 62.5 inches 5'2.50" Heart Rate 74 /min BP Systolic Sitting 122 mmHg wrist BP Diastolic Sitting 88 mmHg wrist O2 % BldC Oximetry 93 % 05/25/2018 9:41am Height 62.5 inches 5'2.50" Weight 335.00 lb Heart Rate 73 /min BP Systolic Sitting 120 mmHg wrist BP Diastolic Sitting 80 mmHg wrist O2 % BldC Oximetry 94 % BMI (Body Mass Index) 60.3 kg/m2 05/24/2018 11:15am Weight 335.75 lb 05/24/2018 10:55am Height 62.5 inches 5'2.50" Weight 325.00 lb Heart Rate 78 /min BP Systolic 136 mmHg BP Diastolic 78 mmHg Respiratory Rate 14 /min Pain Level 6 BMI (Body Mass Index) 58.5 kg/m2 04/28/2018 10:19am Height 62.5 inches 5'2.50" Weight 325.00 lb Heart Rate 76 /min BP Systolic 130 mmHg BP Diastolic 78 mmHg Respiratory Rate 14 /min Pain Level 8 BMI (Body Mass Index) 58.5 kg/m2 04/19/2018 10:18am Height 62.5 inches 5'2.50" Weight 336.00 lb per 04/14/18 PCP note Heart Rate 76 /min BP Systolic Sitting 126 mmHg Lue thigh cuff BP Diastolic Sitting 80 mmHg Lue thigh cuff Respiratory Rate 18 /min BMI (Body Mass Index) 60.5 kg/m2 Ejection Fraction 55-60% 12/20/16 04/14/2018 11:03am Height 62.5 inches 5'2.50" Weight 336.00 lb Heart Rate 69 /min BP Systolic Sitting 128 mmHg BP Diastolic Sitting 70 mmHg O2 % BldC Oximetry 94 % BMI (Body Mass Index) 60.5 kg/m2 03/24/2018 10:27am Height 62.5 inches 5'2.50" Weight 325.00 lb BP Systolic 130 mmHg BP Diastolic 68 mmHg Respiratory Rate 20 /min Pain Level 1 BMI (Body Mass Index) 58.5 kg/m2 02/03/2018 11:16am Height 62.5 inches 5'2.50" Weight 325.00 lb Heart Rate 65 /min BP Systolic Sitting 113 mmHg BP Diastolic Sitting 75 mmHg Respiratory Rate 16 /min Body Temperature 98.7 F Pain Level 7 BMI (Body Mass Index) 58.5 kg/m2 01/04/2018 4:09pm Heart Rate 65 /min BP Systolic Sitting 120 mmHg BP Diastolic Sitting 96 mmHg O2 % BldC Oximetry 95 % 12/08/2017 1:28pm Height 62.5 inches 5'2.50" Weight 325.00 lb Heart Rate 72 /min Pain Level 9 BMI (Body Mass Index) 58.5 kg/m2 11/18/2017 10:13am Weight 325.00 lb Heart Rate 86 /min BP Systolic Sitting 136 mmHg via wrist BP Diastolic Sitting 98 mmHg via wrist Body Temperature 99.1 F O2 % BldC Oximetry 91 % 10/15/2017 10:46am Height 63 inches 5'3" Weight 322.00 lb Heart Rate 90 /min BP Systolic Sitting 136 mmHg BP Diastolic Sitting 82 mmHg Pain Level 6 BMI (Body Mass Index) 57.0 kg/m2 10/12/2017 10:16am Weight 322.00 lb Heart Rate 77 /min BP Systolic Sitting 130 mmHg BP Diastolic Sitting 80 mmHg Body Temperature 98.7 F O2 % BldC Oximetry 91 % 08/27/2017 9:24am Height 63 inches 5'3" Weight 322.00 lb Heart Rate 86 /min BP Systolic Sitting 132 mmHg BP Diastolic Sitting 84 mmHg Pain Level 4 BMI (Body Mass Index) 57.0 kg/m2 08/19/2017 11:58am Weight 322.00 lb Heart Rate 91 /min BP Systolic Sitting 130 mmHg BP Diastolic Sitting 90 mmHg Body Temperature 98.8 F O2 % BldC Oximetry 92 % 08/05/2017 1:46pm Weight 325.38 lb Heart Rate 75 /min BP Systolic Sitting 130 mmHg BP Diastolic Sitting 80 mmHg Body Temperature 98.9 F O2 % BldC Oximetry 95 % 07/30/2017 9:25am Height 62.5 inches 5'2.50" Weight 325.00 lb wheelchair Heart Rate 72 /min BP Systolic Sitting 158 mmHg BP Diastolic Sitting 94 mmHg Body Temperature 99.4 F Pain Level 8 BMI (Body Mass Index) 58.5 kg/m2 07/19/2017 10:25am Height 62.5 inches 5'2.50" Weight 325.00 lb Heart Rate 82 /min BP Systolic Sitting 132 mmHg BP Diastolic Sitting 70 mmHg Pain Level 4 BMI (Body Mass Index) 58.5 kg/m2 06/23/2017 11:03am Height 62.5 inches 5'2.50" Weight 325.00 lb Heart Rate 82 /min BP Systolic Sitting 130 mmHg BP Diastolic Sitting 84 mmHg Pain Level 4 BMI (Body Mass Index) 58.5 kg/m2 06/02/2017 9:52am Height 62.5 inches 5'2.50" Weight 345.00 lb Heart Rate 77 /min BP Systolic 141 mmHg BP Diastolic 81 mmHg BMI (Body Mass Index) 62.1 kg/m2 04/26/2017 9:56am Height 62.5 inches 5'2.50" Weight 344.00 lb Heart Rate 70 /min BP Systolic 153 mmHg BP Diastolic 79 mmHg BMI (Body Mass Index) 61.9 kg/m2 03/31/2017 12:11pm Height 62.25 inches 5'2.25" Weight 345.00 lb Heart Rate 93 /min BP Systolic 122 mmHg BP Diastolic 70 mmHg Body Temperature 99.8 F O2 % BldC Oximetry 96 % BMI (Body Mass Index) 62.6 kg/m2 03/30/2017 2:14pm Height 62.25 inches 5'2.25" Weight 345.00 lb with shoes Heart Rate 76 /min BP Systolic Sitting 110 mmHg R forearm lg cuff BP Diastolic Sitting 54 mmHg R forearm lg cuff Respiratory Rate 17 /min BMI (Body Mass Index) 62.6 kg/m2 03/09/2017 8:34am Height 62.25 inches 5'2.25" Weight 348.12 lb Heart Rate 72 /min BP Systolic Sitting 120 mmHg BP Diastolic Sitting 72 mmHg Respiratory Rate 16 /min Pain Level 4 Hips O2 % BldC Oximetry 97 % BMI (Body Mass Index) 63.2 kg/m2 01/28/2017 10:39am Weight 345.38 lb Heart Rate 88 /min BP Systolic 124 mmHg BP Diastolic 70 mmHg Body Temperature 99.2 F O2 % BldC Oximetry 94 % 12/30/2016 10:18am Weight 339.00 lb Heart Rate 73 /min BP Systolic Sitting 136 mmHg BP Diastolic Sitting 80 mmHg Body Temperature 98.3 F O2 % BldC Oximetry 97 % on 3L O2 12/28/2016 10:15am Height 62.25 inches 5'2.25" Weight 350.00 lb Heart Rate 78 /min BP Systolic 130 mmHg BP Diastolic 82 mmHg Respiratory Rate 20 /min Body Temperature 98.5 F BMI (Body Mass Index) 63.5 kg/m2 12/23/2016 11:38am Heart Rate 103 /min BP Systolic Sitting 152 mmHg BP Diastolic Sitting 80 mmHg Body Temperature 98.3 F O2 % BldC Oximetry 90 % 3L % O2 11/20/2016 2:36pm Height 62.25 inches 5'2.25" Weight 356.25 lb Heart Rate 70 /min BP Systolic 126 mmHg BP Diastolic 80 mmHg Body Temperature 98.6 F O2 % BldC Oximetry 95 % BMI (Body Mass Index) 64.6 kg/m2 11/16/2016 9:18am Height 62.25 inches 5'2.25" Weight 344.00 lb Heart Rate 103 /min BP Systolic 155 mmHg BP Diastolic 74 mmHg BMI (Body Mass Index) 62.4 kg/m2 09/30/2016 2:57pm Height 62 inches 5'2" Weight 345.00 lb Heart Rate 88 /min BP Systolic Sitting 144 mmHg LA, large BP Diastolic Sitting 94 mmHg LA, large BMI (Body Mass Index) 63.1 kg/m2 Ejection Fraction 68% 02/05/16 stress test 08/05/2016 10:57am Weight 337.00 lb Heart Rate 100 /min Pain Level 5 06/05/2016 11:43am Heart Rate 92 /min Respiratory Rate 24 /min Pain Level 2 05/04/2016 1:28pm Weight 303.00 lb fluctuated on scale between 303 - 314 Heart Rate 84 /min Respiratory Rate 22 /min Pain Level 8 04/27/2016 3:09pm Height 62 inches 5'2" Weight 321.00 lb Heart Rate 80 /min Pain Level 8 BMI (Body Mass Index) 58.7 kg/m2 04/20/2016 8:57am Height 62 inches 5'2" Weight 321.00 lb Heart Rate 80 /min Pain Level 5 BMI (Body Mass Index) 58.7 kg/m2 02/12/2016 3:24pm Height 62 inches 5'2" Weight 351.00 lb Heart Rate 80 /min 96 BP Systolic Sitting 98 mmHg left arm, Thigh cuff BP Diastolic Sitting 68 mmHg left arm, Thigh cuff BP Systolic Standing 90 mmHg left arm, Thigh cuff BP Diastolic Standing 68 mmHg left arm, Thigh cuff Respiratory Rate 20 /min BMI (Body Mass Index) 64.2 kg/m2 Ejection Fraction 50-55% 11/26/15 11/14/2015 10:40am Height 62 inches 5'2" Weight 364.75 lb w/shoes Heart Rate 78 /min BP Systolic Sitting 136 mmHg LA thigh cuff BP Diastolic Sitting 82 mmHg LA thigh cuff BMI (Body Mass Index) 66.7 kg/m2 Ejection Fraction 50-55 echo 06/29/14 02/25/2015 9:00am Height 62 inches 5'2" Weight 359.00 lb Heart Rate 74 /min reg BP Systolic 140 mmHg BP Diastolic 80 mmHg BMI (Body Mass Index) 65.7 kg/m2 12/24/2014 9:58am Height 62 inches 5'2" Weight 351.50 lb with shoes on Heart Rate 100 /min BP Systolic Sitting 142 mmHg BP Diastolic Sitting 88 mmHg Respiratory Rate 20 /min Body Temperature 97.8 F O2 % BldC Oximetry 95 % BMI (Body Mass Index) 64.3 kg/m2 Neck Circumference in inches 18 08/01/2014 9:33am Height 62.5 inches 5'2.50" Weight 347.50 lb Heart Rate 72 /min BP Systolic Sitting 122 mmHg Ra, reg BP Diastolic Sitting 74 mmHg Ra, reg BMI (Body Mass Index) 62.5 kg/m2 06/07/2014 1:19pm Height 62.5 inches 5'2.50" Weight 347.75 lb Heart Rate 84 /min BMI (Body Mass Index) 62.6 kg/m2 03/12/2009 12:57pm Height 62.5 inches 5'2.50" Weight 297.00 lb Heart Rate 64 /min BP Systolic Sitting 104 mmHg BP Diastolic Sitting 70 mmHg BMI (Body Mass Index) 53.5 kg/m2 02/07/2009 2:52pm Height 62.5 inches 5'2.50" Weight 289.00 lb Heart Rate 64 /min BP Systolic Sitting 110 mmHg L BP Diastolic Sitting 68 mmHg L O2 % BldC Oximetry 95 % BMI (Body Mass Index) 52.0 kg/m2 02/01/2008 8:57am Height 62.5 inches 5'2.50" Weight 317.00 lb Heart Rate 60 /min BP Systolic Sitting 90 mmHg BP Diastolic Sitting 60 mmHg Respiratory Rate 16 /min BMI (Body Mass Index) 57.0 kg/m2 09/22/2007 8:50am Height 62.5 inches 5'2.50" Weight 329.00 lb Heart Rate 80 /min BP Systolic Sitting 130 mmHg BP Diastolic Sitting 80 mmHg Respiratory Rate 16 /min BMI (Body Mass Index) 59.2 kg/m2 05/16/2007 9:47am Height 62.5 inches 5'2.50" Weight 326.50 lb Heart Rate 68 /min BP Systolic Sitting 130 mmHg BP Diastolic Sitting 86 mmHg BMI (Body Mass Index) 58.8 kg/m2 01/10/2007 10:23am Height 62.5 inches 5'2.50" Weight 330.00 lb Heart Rate 66 /min BP Systolic Sitting 118 mmHg BP Diastolic Sitting 76 mmHg BMI (Body Mass Index) 59.4 kg/m2 Results Test Date Facility Test Result H/L Range Note Protime W/ Inr 10/06/2018 [facility] Prothrombin Time 23.6 Inr 2.0 Protime W/ Inr 09/28/2018 [facility] Prothrombin Time 29.6 Inr 2.5 Protime W/ Inr 09/15/2018 [facility] Prothrombin Time 31.1 Inr 2.5 Protime W/ Inr 09/01/2018 [facility] Prothrombin Time 29.5 Inr 2.4 Protime W/ Inr 08/24/2018 [facility] Prothrombin Time 18.6 Inr 1.5 Protime W/ Inr 08/16/2018 [facility] Prothrombin Time 47.9 Inr 4.0 Protime W/ Inr 07/27/2018 [facility] Inr 2.5 Protime W/ Inr 07/19/2018 [facility] Prothrombin Time 31.2 Inr 2.6 Protime W/ Inr 07/11/2018 [facility] Inr 1.7 CBC Auto Diff 07/02/2018 [facility] White Blood 6.7 10^3/uL N 3.5-10.[address] [place] [address] [phone] Red Blood Count 4.32 10^6/uL N 4.00-5.40 Hemoglobin 12.9 g/dL N 12.0-16.0 Hematocrit 39 % N 35-47 Mean Corpuscular Volume 89 fL N 80-97 Mean Corpuscular Hemoglobin 30 pg N 27-31 Mean Corpuscular HGB Conc 34 g/dL N 31-36 Red Cell Distribution Width 15 % N 10.5-15 Platelet Count 225 10^3/uL N 150-450 Mean Platelet Volume 8.9 um3 N 7.4-10.4 Abs Neutrophils 4.3 10^3/uL N 1.5-7.7 Abs Lymphocytes 1.6 10^3/uL N 1.0-4.8 Abs Monocytes 0.5 10^3/uL N 0-0.8 Abs Eosinophils 0.2 10^3/uL N 0-0.6 Abs Basophils 0.1 10^3/uL N 0-0.2 Abs Nucleated RBC 0 10^3/uL Granulocyte % 65.1 % N 38-83 Lymphocyte % 23.5 % Low 25-47 Monocyte % 7.2 % High 0-7 Eosinophil % 3.4 % N 0-6 Basophil % 0.8 % N 0-2 Nucleated Red Blood Cells % 0.1 Inr/Protime 07/02/2018 [facility] Inr 1.73 High 0.77-1.[address] [place], [place] [id number] [phone] Wound 06/29/2018 [facility] Wound/Misc SEE RESULT 1 Culture/Sensi [address] [place] [address] m Stain [phone] Laboratory test 06/29/2018 [facility] MRSA/S. SEE RESULT [address] [address] PCR [phone] CBC Auto Diff 06/29/2018 [facility] White Blood 6.6 10^3/uL N 3.5-10.[address] [place], [place] [id number] [phone] Red Blood Count 4.87 10^6/uL N 4.00-5.40 Hemoglobin 14.7 g/dL N 12.0-16.0 Hematocrit 44 % N 35-47 Mean Corpuscular Volume 90 fL N 80-97 Mean Corpuscular Hemoglobin 30 pg N 27-31 Mean Corpuscular HGB Conc 34 g/dL N 31-36 Red Cell Distribution Width 15 % N 10.5-15 Platelet Count 220 10^3/uL N 150-450 Mean Platelet Volume 9.2 um3 N 7.4-10.4 Abs Neutrophils 4.5 10^3/uL N 1.5-7.7 Abs Lymphocytes 1.3 10^3/uL N 1.0-4.8 Abs Monocytes 0.6 10^3/uL N 0-0.8 Abs Eosinophils 0.2 10^3/uL N 0-0.6 Abs Basophils 0 10^3/uL N 0-0.2 Abs Nucleated RBC 0 10^3/uL Granulocyte % 67.9 % N 38-83 Lymphocyte % 19.6 % Low 25-47 Monocyte % 8.4 % High 0-7 Eosinophil % 3.5 % N 0-6 Basophil % 0.6 % N 0-2 Nucleated Red Blood Cells % 0 Comp Metabolic Panel 06/29/2018 [facility] Sodium 140 mmol/L N 135-[address] [place] [address] [phone] Potassium 4.2 mmol/L N 3.5-5.0 Chloride 106 mmol/L N 101-111 Co2 Carbon Dioxide 30 mmol/L N 22-32 Anion Gap 4 mmol/L N 2-11 Glucose 113 mg/dL High 70-100 Blood Urea Nitrogen 11 mg/dL N 6-24 Creatinine 0.52 mg/dL N 0.51-0.95 BUN/Creatinine Ratio 21.2 High 8-20 Calcium 9.2 mg/dL N 8.6-10.3 Total Protein 6.3 g/dL Low 6.4-8.9 Albumin 3.6 g/dL N 3.2-5.2 Globulin 2.7 g/dL N 2-4 Albumin/Globulin Ratio 1.3 N 1-3 Total Bilirubin 0.50 mg/dL N 0.2-1.0 Alkaline Phosphatase 54 U/L N 34-104 Alt 9 U/L N 7-52 Ast 8 U/L Low 13-39 Egfr Non- 121.1 >60 Egfr 146.6 >60 3 Laboratory test 06/29/2018 [facility] C Reactive 39.37 mg/L High <8.[address] [place] [address] [phone] Lactic Acid 0.7 mmol/L N 0.5-2.0 4 Inr/Protime 06/29/2018 [facility] Inr 2.35 High 0.77-1.[address] [place] [address] [phone] Protime W/ Inr 06/27/2018 [facility] Prothrombin Time 33.9 Inr 2.8 Protime W/ Inr 06/20/2018 [facility] Prothrombin Time 24.9 Inr 2.1 Laboratory test 06/17/2018 [facility] Surgical Pathology SEE RESULT [address] [place] [address] [phone] Protime W/ Inr 06/15/2018 [facility] Prothrombin Time 21.6 Inr 1.8 CBC Auto Diff 06/06/2018 [facility] White Blood 7.0 10^3/uL N 3.5-10.[address] [place] [address] [phone] Red Blood Count 5.14 10^6/uL N 4.00-5.40 Hemoglobin 15.4 g/dL N 12.0-16.0 Hematocrit 46 % N 35-47 Mean Corpuscular Volume 90 fL N 80-97 Mean Corpuscular Hemoglobin 30 pg N 27-31 Mean Corpuscular HGB Conc 33 g/dL N 31-36 Red Cell Distribution Width 15 % N 10.5-15 Platelet Count 199 10^3/uL N 150-450 Mean Platelet Volume 10.2 um3 N 7.4-10.4 Abs Neutrophils 4.8 10^3/uL N 1.5-7.7 Abs Lymphocytes 1.5 10^3/uL N 1.0-4.8 Abs Monocytes 0.5 10^3/uL N 0-0.8 Abs Eosinophils 0.2 10^3/uL N 0-0.6 Abs Basophils 0 10^3/uL N 0-0.2 Abs Nucleated RBC 0 10^3/uL Granulocyte % 68.0 % N 38-83 Lymphocyte % 20.7 % Low 25-47 Monocyte % 7.4 % High 0-7 Eosinophil % 3.2 % N 0-6 Basophil % 0.7 % N 0-2 Nucleated Red Blood Cells % 0 Inr/Protime 06/06/2018 [facility] Inr 2.67 High 0.77-1.[address] [place] [address] [phone] Laboratory test 06/06/2018 [facility] Partial 51.0 High 26.0- 36.[address] [place] [address] Time PTT [phone] Basic Metabolic 06/06/2018 [facility] Sodium 141 mmol/L N 135- [address] [place] [address] [phone] Potassium 3.9 mmol/L N 3.5-5.0 Chloride 106 mmol/L N 101-111 Co2 Carbon Dioxide 28 mmol/L N 22-32 Anion Gap 7 mmol/L N 2-11 Glucose 115 mg/dL High 70-100 Blood Urea Nitrogen 15 mg/dL N 6-24 Creatinine 0.53 mg/dL N 0.51-0.95 BUN/Creatinine Ratio 28.3 High 8-20 Calcium 9.2 mg/dL N 8.6-10.3 Egfr Non- 118.5 >60 Egfr 143.4 >60 6 Protime W/ Inr 05/25/2018 [facility] Prothrombin Time 28.7 Inr 2.4 Inr/Protime 05/09/2018 [facility] Inr 2.37 High 0.77-1.[address] [place] [address] [phone] Inr/Protime 05/02/2018 [facility] Inr 1.63 High 0.77-1.[address] [place] [address] [phone] Urine Culture And 04/14/2018 [facility] Urine SEE RESULT [address] [place] [place] [address] [phone] Ua Routine 04/14/2018 [facility] Ua Specific 1.020 [place] Ua PH 5 Ua Color dark yellow Ua Appera cloudy Ua WBC + Ua Protein trace Ua Glucose norm Ua Ketones - Ua Bilirubin - Ua Urobilinogen norm Ua Nitrite - Ua Occult Blood 50 Protime W/ Inr 04/14/2018 [facility] Prothrombin Time 23.4 Inr 2.0 Protime W/ Inr 03/30/2018 [facility] Prothrombin Time 24.1 Inr 2.0 Protime W/ Inr 03/02/2018 [facility] Prothrombin Time 28.8 Inr 2.4 Protime W/ Inr 02/07/2018 [facility] Prothrombin Time 29.8 Inr 2.4 Protime W/ Inr 01/27/2018 [facility] Prothrombin Time 17.9 Inr 1.5 CBC Auto Diff 01/13/2018 [facility] White Blood 6.2 10^3/uL N 3.5-10.[address] [place] [address] [phone] Red Blood Count 5.36 10^6/uL N 4.0-5.4 Hemoglobin 15.4 g/dL N 12.0-16.0 Hematocrit 46 % N 35-47 Mean Corpuscular Volume 87 fL N 80-97 Mean Corpuscular Hemoglobin 29 pg N 27-31 Mean Corpuscular HGB Conc 33 g/dL N 31-36 Red Cell Distribution Width 16 % High 10.5-15 Platelet Count 214 10^3/uL N 150-450 Mean Platelet Volume 9.8 um3 N 7.4-10.4 Abs Neutrophils 4.3 10^3/uL N 1.5-7.7 Abs Lymphocytes 1.2 10^3/uL N 1.0-4.8 Abs Monocytes 0.4 10^3/uL N 0-0.8 Abs Eosinophils 0.2 10^3/uL N 0-0.6 Abs Basophils 0 10^3/uL N 0-0.2 Abs Nucleated RBC 0 10^3/uL Granulocyte % 69.3 % N 38-83 Lymphocyte % 19.7 % Low 25-47 Monocyte % 7.2 % High 0-7 Eosinophil % 3.2 % N 0-6 Basophil % 0.6 % N 0-2 Nucleated Red Blood Cells % 0 Inr/Protime 01/13/2018 [facility] Inr 1.78 High 0.77-1.[address] [place] [address] [phone] Protime W/ Inr 12/28/2017 [facility] Prothrombin Time 26.1 Inr 2.1 Protime W/ Inr 12/14/2017 [facility] Prothrombin Time 28.4 Inr 2.3 Protime W/ Inr 12/07/2017 [facility] Prothrombin Time 42.0 Inr 3.4 Istat BUN/Crea/Egfr/V 12/01/2017 [facility] Poc Bun 12 mg/dL N 9-[address] [place] [address] [phone] Poc Crea Mainct 0.6 mg/dL N 0.6-0.9 GFR Non- MCT 103.0 >60 GFR Main[facility] 132.5 >60 8 Protime W/ Inr 11/12/2017 [facility] Prothrombin Time 28.9 Inr 2.4 Inr/Protime 10/26/2017 [facility] Inr 2.03 High 0.77-1.[address] [place] [address] [phone] Protime W/ Inr 10/12/2017 [facility] Draw Prothrombin Time 31.5 [phone] Inr 2.6 Protime W/ Inr 09/09/2017 [facility] Inr 2.97 High 0.77-1.[address] [place] [address] [phone] Laboratory test 09/01/2017 [facility] Lactic Acid 0.9 N 0.5- 2.0 [address] mmol/[place] [address] [phone] CBC Auto Diff 09/01/2017 [facility] White Blood 7.1 N 3.5- 10.[address] Count 10^3/[place] [address] [phone] Red Blood Count 5.13 10^6/uL N 4.0-5.4 Hemoglobin 13.9 g/dL N 12.0-16.0 Hematocrit 43 % N 35-47 Mean Corpuscular Volume 84 fL N 80-97 Mean Corpuscular Hemoglobin 27 pg N 27-31 Mean Corpuscular HGB Conc 32 g/dL N 31-36 Red Cell Distribution Width 16 % High 10.5-15 Platelet Count 214 10^3/uL N 150-450 Mean Platelet Volume 10 um3 N 7.4-10.4 Abs Neutrophils 5.4 10^3/uL N 1.5-7.7 Abs Lymphocytes 1.0 10^3/uL N 1.0-4.8 Abs Monocytes 0.4 10^3/uL N 0-0.8 Abs Eosinophils 0.2 10^3/uL N 0-0.6 Abs Basophils 0.1 10^3/uL N 0-0.2 Abs Nucleated RBC 0.01 10^3/uL Granulocyte % 75.9 % N 38-83 Lymphocyte % 13.5 % Low 25-47 Monocyte % 6.3 % N 1-9 Eosinophil % 3.4 % N 0-6 Basophil % 0.9 % N 0-2 Nucleated Red Blood Cells % 0.1 Inr/Protime 09/01/2017 [facility] Inr 2.51 High 0.77-1.[address] [place], [place] [id number] [phone] Laboratory test 09/01/2017 [facility] Partial 55.8 High 26.0- 36.[address] [place] [address] Time PTT [phone] Comp Metabolic 09/01/2017 [facility] Sodium 139 mmol/L N 133- [address] [place] [address] [phone] Potassium 3.8 mmol/L N 3.5-5.0 Chloride 103 mmol/L N 101-111 Co2 Carbon Dioxide 31 mmol/L N 22-32 Anion Gap 5 mmol/L N 2-11 Glucose 112 mg/dL High 70-100 Blood Urea Nitrogen 10 mg/dL N 6-24 Creatinine 0.58 mg/dL N 0.51-0.95 BUN/Creatinine Ratio 17.2 N 8-20 Calcium 9.4 mg/dL N 8.6-10.3 Total Protein 6.6 g/dL N 6.4-8.9 Albumin 3.6 g/dL N 3.2-5.2 Globulin 3.0 g/dL N 2-4 Albumin/Globulin Ratio 1.2 N 1-3 Total Bilirubin 0.70 mg/dL N 0.2-1.0 Alkaline Phosphatase 65 U/L N 34-104 Alt 19 U/L N 7-52 Ast 20 U/L N 13-39 Egfr Non- 107.2 >60 Egfr 137.8 >60 12 Laboratory test 09/01/2017 [facility] Magnesium 1.9 mg/dL N 1.9-2.[address] [place] [address] [phone] Lipase 20 U/L N 11.0-82.0 C Reactive Protein 23.31 mg/L High < 5.00 13 B-Type Natriuretic Peptide BNP 12 pg/mL 14 Inr/Protime 08/25/2017 [facility] Inr 2.10 High 0.77-1.[address] [place] [address] [phone] Protime W/ Inr 08/18/2017 Other Rendering Inr 1.7 Protime W/ Inr 08/11/2017 Other Rendering Prothrombin 1.8 Time CBC Auto Diff 08/11/2017 [facility] White Blood 6.2 N 3.5- 10.[address] Count 10^3/[place] [address] [phone] Red Blood Count 5.11 10^6/uL N 4.0-5.4 Hemoglobin 13.7 g/dL N 12.0-16.0 Hematocrit 43 % N 35-47 Mean Corpuscular Volume 83 fL N 80-97 Mean Corpuscular Hemoglobin 27 pg N 27-31 Mean Corpuscular HGB Conc 32 g/dL N 31-36 Red Cell Distribution Width 17 % High 10.5-15 Platelet Count 250 10^3/uL N 150-450 Mean Platelet Volume 10 um3 N 7.4-10.4 Abs Neutrophils 4.1 10^3/uL N 1.5-7.7 Abs Lymphocytes 1.2 10^3/uL N 1.0-4.8 Abs Monocytes 0.5 10^3/uL N 0-0.8 Abs Eosinophils 0.4 10^3/uL N 0-0.6 Abs Basophils 0.1 10^3/uL N 0-0.2 Abs Nucleated RBC 0 10^3/uL Granulocyte % 66.0 % N 38-83 Lymphocyte % 19.2 % Low 25-47 Monocyte % 7.5 % N 1-9 Eosinophil % 6.0 % N 0-6 Basophil % 1.3 % N 0-2 Nucleated Red Blood Cells % 0.1 Comp Metabolic Panel 08/11/2017 [facility] Sodium 135 mmol/L N 133-[address] [place] [address] [phone] Potassium 3.9 mmol/L N 3.5-5.0 Chloride 99 mmol/L Low 101-111 Co2 Carbon Dioxide 29 mmol/L N 22-32 Anion Gap 7 mmol/L N 2-11 Glucose 112 mg/dL High 70-100 Blood Urea Nitrogen 10 mg/dL N 6-24 Creatinine 0.57 mg/dL N 0.51-0.95 BUN/Creatinine Ratio 17.5 N 8-20 Calcium 9.1 mg/dL N 8.6-10.3 Total Protein 6.4 g/dL N 6.4-8.9 Albumin 3.5 g/dL N 3.2-5.2 Globulin 2.9 g/dL N 2-4 Albumin/Globulin Ratio 1.2 N 1-3 Total Bilirubin 0.70 mg/dL N 0.2-1.0 Alkaline Phosphatase 49 U/L N 34-104 Alt 14 U/L N 7-52 Ast 15 U/L N 13-39 Egfr Non- 109.3 >60 Egfr 140.6 >60 16 Laboratory test 08/11/2017 [facility] Creatine 45 U/L N 10- [address] Kinase(CK) [place] [address] [phone] C Reactive Protein 17.40 mg/L High < 5.00 17 Troponin-I (TnI) 0.00 ng/mL <0.04 B-Type Natriuretic Peptide BNP 12 pg/mL 18 Protime W/ Inr 08/11/2017 Other Rendering Inr 1.8 Protime W/ Inr 08/04/2017 Other Rendering Inr 1.8 Protime W/ Inr 07/28/2017 Other Rendering Inr 1.8 Urinalysis Profile 07/22/2017 [facility] Urine Color Nataliia N [address] [place] [address] [phone] Urine Appearance Cloudy N Urine Specific [place] 1.017 N 1.010-1.030 Urine pH 6.0 N 5-9 Urine Urobilinogen Negative N Negative Urine Ketones Negative N Negative Urine Protein 1+(30 mg/dL) Abnormal Negative Urine Leukocytes 3+ Abnormal Negative Urine Blood 3+ Abnormal Negative Urine Nitrite Negative N Negative Urine Bilirubin Negative N Negative Urine Glucose Negative N Negative Urine White Blood Cell 3+(>20/hpf) Abnormal Absent Urine Red Blood Cell 3+(>10/hpf) Abnormal Absent Urine Bacteria Absent N Absent Urine Squamous Epithelial Cell Present Abnormal Absent Urine Culture And 07/22/2017 [facility] Urine Culture SEE RESULT [address] [place] [address] [phone] CBC Auto Diff 07/22/2017 [facility] White Blood 8.5 10^3/uL N 3.5-[address] Count 0.8 [place] [address] [phone] Red Blood Count 4.84 10^6/uL N 4.0-5.4 Hemoglobin 13.0 g/dL N 12.0-16.0 Hematocrit 41 % N 35-47 Mean Corpuscular Volume 84 fL N 80-97 Mean Corpuscular Hemoglobin 27 pg N 27-31 Mean Corpuscular HGB Conc 32 g/dL N 31-36 Red Cell Distribution Width 16 % High 10.5-15 Platelet Count 278 10^3/uL N 150-450 Mean Platelet Volume 10 um3 N 7.4-10.4 Abs Neutrophils 6.6 10^3/uL N 1.5-7.7 Abs Lymphocytes 1.2 10^3/uL N 1.0-4.8 Abs Monocytes 0.5 10^3/uL N 0-0.8 Abs Eosinophils 0.1 10^3/uL N 0-0.6 Abs Basophils 0 10^3/uL N 0-0.2 Abs Nucleated RBC 0 10^3/uL N Granulocyte % 77.6 % N 38-83 Lymphocyte % 14.0 % Low 25-47 Monocyte % 6.3 % N 1-9 Eosinophil % 1.6 % N 0-6 Basophil % 0.5 % N 0-2 Nucleated Red Blood Cells % 0 N Laboratory test 07/22/2017 [facility] B-Type Natriuretic 26 pg/ mL N [address] [place] [address] [phone] Lactic Acid 1.2 mmol/L N 0.5-2.0 21 Comp Metabolic Panel 07/22/2017 [facility] Sodium 138 mmol/L N 133-[address] [place] [address] [phone] Potassium 3.6 mmol/L N 3.5-5.0 Chloride 102 mmol/L N 101-111 Co2 Carbon Dioxide 30 mmol/L N 22-32 Anion Gap 6 mmol/L N 2-11 Glucose 117 mg/dL High 70-100 Blood Urea Nitrogen 9 mg/dL N 6-24 Creatinine 0.52 mg/dL N 0.51-0.95 BUN/Creatinine Ratio 17.3 N 8-20 Calcium 9.1 mg/dL N 8.6-10.3 Total Protein 5.9 g/dL Low 6.4-8.9 Albumin 3.1 g/dL Low 3.2-5.2 Globulin 2.8 g/dL N 2-4 Albumin/Globulin Ratio 1.1 N 1-3 Total Bilirubin 0.80 mg/dL N 0.2-1.0 Alkaline Phosphatase 45 U/L N 34-104 Alt 13 U/L N 7-52 Ast 14 U/L N 13-39 Egfr Non- 121.5 N >60 Egfr 156.3 N >60 22 Laboratory test 07/22/2017 [facility] Magnesium 1.5 mg/dL Low 1.9-2.[address] [place], [place] [id number] [phone] Lipase 29 U/L N 11.0-82.0 C Reactive Protein 44.69 mg/L High < 5.00 23 Troponin-I (TnI) 0.00 ng/mL N <0.04 TSH (Thyroid Stim Horm) 1.11 mcIU/mL N 0.34-5.60 Inr/Protime 07/22/2017 [facility] Inr 1.74 High 0.89-1.[address] [place] [address] [phone] Laboratory test 07/22/2017 [facility] Partial 40.3 High 26.0- 36.[address] [place] [address] Time PTT [phone] Urinalysis 06/30/2017 [facility] Urine Color Nataliia N Profile [address] [place] [address] [phone] Urine Appearance Turbid N Urine Specific [place] 1.018 N 1.010-1.030 Urine pH 5.0 N 5-9 Urine Urobilinogen Negative N Negative Urine Ketones Negative N Negative Urine Protein 1+(30 mg/dL) Abnormal Negative Urine Leukocytes 3+ Abnormal Negative Urine Blood 2+ Abnormal Negative Urine Nitrite Negative N Negative Urine Bilirubin Negative N Negative Urine Glucose Negative N Negative Urine White Blood Cell 3+(>20/hpf) Abnormal Absent Urine Red Blood Cell 3+(>10/hpf) Abnormal Absent Urine Bacteria Absent N Absent Urine Calcium Oxalate Cryst Present Abnormal Absent Urine Yeast Present Abnormal Absent Urine Culture And 06/30/2017 [facility] Urine Culture SEE RESULT [address] [place] [address] [phone] CBC Auto Diff 06/06/2017 [facility] White Blood 7.9 10^3/uL N 3.5-[address] Count 0.8 [place] [address] [phone] Red Blood Count 4.94 10^6/uL N 4.0-5.4 Hemoglobin 13.4 g/dL N 12.0-16.0 Hematocrit 42 % N 35-47 Mean Corpuscular Volume 85 fL N 80-97 Mean Corpuscular Hemoglobin 27 pg N 27-31 Mean Corpuscular HGB Conc 32 g/dL N 31-36 Red Cell Distribution Width 19 % High 10.5-15 Platelet Count 261 10^3/uL N 150-450 Mean Platelet Volume 10 um3 N 7.4-10.4 Abs Neutrophils 5.9 10^3/uL N 1.5-7.7 Abs Lymphocytes 1.1 10^3/uL N 1.0-4.8 Abs Monocytes 0.5 10^3/uL N 0-0.8 Abs Eosinophils 0.3 10^3/uL N 0-0.6 Abs Basophils 0.1 10^3/uL N 0-0.2 Abs Nucleated RBC 0.01 10^3/uL N Granulocyte % 75.0 % N 38-83 Lymphocyte % 14.6 % Low 25-47 Monocyte % 6.2 % N 1-9 Eosinophil % 3.4 % N 0-6 Basophil % 0.8 % N 0-2 Nucleated Red Blood Cells % 0.1 N Comp Metabolic Panel 06/06/2017 [facility] Sodium 136 mmol/L N 133-[address] [place] [address] [phone] Potassium 4.0 mmol/L N 3.5-5.0 Chloride 102 mmol/L N 101-111 Co2 Carbon Dioxide 26 mmol/L N 22-32 Anion Gap 8 mmol/L N 2-11 Glucose 126 mg/dL High 70-100 Blood Urea Nitrogen 16 mg/dL N 6-24 Creatinine 0.61 mg/dL N 0.51-0.95 BUN/Creatinine Ratio 26.2 High 8-20 Calcium 9.4 mg/dL N 8.6-10.3 Total Protein 6.9 g/dL N 6.4-8.9 Albumin 3.8 g/dL N 3.2-5.2 Globulin 3.1 g/dL N 2-4 Albumin/Globulin Ratio 1.2 N 1-3 Total Bilirubin 0.40 mg/dL N 0.2-1.0 Alkaline Phosphatase 56 U/L N 34-104 Alt 13 U/L N 7-52 Ast 11 U/L Low 13-39 Egfr Non- 101.1 N >60 Egfr 130.0 N >60 25 Laboratory test 06/06/2017 [facility] C Reactive 55.60 mg/L High < 5.00 [address] [place] [address] [phone] Erythrocyte Sed Rate 36 mm/Hr High 0-30 Urinalysis Profile 06/01/2017 [facility] Urine Color Yellow [place] [address] [place] [address] [phone] Urine Appearance Cloudy N Urine Specific [place] 1.008 Low 1.010-1.030 Urine pH 6.0 N 5-9 Urine Urobilinogen Negative N Negative Urine Ketones Negative N Negative Urine Protein Negative N Negative Urine Leukocytes 3+ Abnormal Negative Urine Blood 1+ Abnormal Negative Urine Nitrite Negative N Negative Urine Bilirubin Negative N Negative Urine Glucose Negative N Negative Urine White Blood Cell 3+(>20/hpf) Abnormal Absent Urine Red Blood Cell 2+(6-10/hpf) Abnormal Absent Urine Bacteria Absent N Absent Urine Squamous Epithelial Cell Present Abnormal Absent Inr/Protime 06/01/2017 [facility] Inr 1.43 High 0.89-1.[address] [place] [address] [phone] Urine Culture And 06/01/2017 [facility] Urine SEE RESULT [address] [place] [address] [phone] Inr/Protime 05/25/2017 [facility] Inr 1.26 High 0.89-1.[address] [place] [address] [phone] Inr/Protime 05/18/2017 [facility] Inr 1.62 High 0.89-1.[address] [place] [address] [phone] Comp Metabolic 05/18/2017 [facility] Sodium 138 mmol/L N 133- 145 Panel [address] [place] [address] [phone] Potassium 3.9 mmol/L N 3.5-5.0 Chloride 103 mmol/L N 101-111 Co2 Carbon Dioxide 31 mmol/L N 22-32 Anion Gap 4 mmol/L N 2-11 Glucose 103 mg/dL High 70-100 Blood Urea Nitrogen 10 mg/dL N 6-24 Creatinine 0.51 mg/dL N 0.51-0.95 BUN/Creatinine Ratio 19.6 N 8-20 Calcium 8.9 mg/dL N 8.6-10.3 Total Protein 6.1 g/dL Low 6.4-8.9 Albumin 3.4 g/dL N 3.2-5.2 Globulin 2.7 g/dL N 2-4 Albumin/Globulin Ratio 1.3 N 1-3 Total Bilirubin 0.40 mg/dL N 0.2-1.0 Alkaline Phosphatase 50 U/L N 34-104 Alt 13 U/L N 7-52 Ast 13 U/L N 13-39 Egfr Non- 124.3 N >60 Egfr 159.9 N >60 29 Laboratory test 05/18/2017 [facility] Lactic Acid 1.1 mmol/L N 0.5-2.0 [address] [place] [address] [phone] CBC Auto Diff 05/18/2017 [facility] White Blood 7.6 10^3/uL N 3.5-10.[address] [place] [address] [phone] Red Blood Count 4.64 10^6/uL N 4.0-5.4 Hemoglobin 12.0 g/dL N 12.0-16.0 Hematocrit 38 % N 35-47 Mean Corpuscular Volume 82 fL N 80-97 Mean Corpuscular Hemoglobin 26 pg Low 27-31 Mean Corpuscular HGB Conc 32 g/dL N 31-36 Red Cell Distribution Width 21 % High 10.5-15 Platelet Count 233 10^3/uL N 150-450 Mean Platelet Volume 9 um3 N 7.4-10.4 Abs Neutrophils 5.1 10^3/uL N 1.5-7.7 Abs Lymphocytes 1.7 10^3/uL N 1.0-4.8 Abs Monocytes 0.5 10^3/uL N 0-0.8 Abs Eosinophils 0.2 10^3/uL N 0-0.6 Abs Basophils 0.1 10^3/uL N 0-0.2 Abs Nucleated RBC 0.01 10^3/uL N Granulocyte % 67.1 % N 38-83 Lymphocyte % 22.7 % Low 25-47 Monocyte % 6.6 % N 1-9 Eosinophil % 2.9 % N 0-6 Basophil % 0.7 % N 0-2 Nucleated Red Blood Cells % 0.1 N GC/Chlamydia 05/15/2017 [facility] Chlamydia Negative N Negative Amplified Rna [address] [place] [address] [phone] Neisseria gonorrhoeae (GC) Rna Negative N Negative Inr/Protime 05/11/2017 [facility] Inr 3.29 High 0.89-1.[address] [place] [address] [phone] Inr/Protime 05/04/2017 [facility] Inr 2.81 High 0.89-1.[address] [place] [address] [phone] Inr/Protime 04/27/2017 [facility] Inr 1.55 High 0.89-1.[address] [place] [address] [phone] Inr/Protime 04/22/2017 [facility] Inr 4.12 High 0.89-1.[address] [place] [address] [phone] Inr/Protime 04/08/2017 [facility] Inr 2.31 High 0.89-1.[address] [place] [address] [phone] Protime W/ Inr 03/31/2017 [facility] Prothrombin Time 35.7 Inr 3.0 Inr/Protime 03/25/2017 [facility] Inr 1.79 High 0.89-1.[address] [place] [address] [phone] Inr/Protime 03/18/2017 [facility] Inr 2.72 High 0.89-1.[address] [place] [address] [phone] Inr/Protime 03/16/2017 [facility] Inr 3.71 High 0.89-1.[address] [place] [address] [phone] Comp Metabolic 03/09/2017 [facility] Sodium 137 mmol/L N 133- 145 Panel [address] [place] [address] [phone] Potassium 4.2 mmol/L N 3.5-5.0 Chloride 104 mmol/L N 101-111 Co2 Carbon Dioxide 28 mmol/L N 22-32 Anion Gap 5 mmol/L N 2-11 Glucose 105 mg/dL High 70-100 Blood Urea Nitrogen 12 mg/dL N 6-24 Creatinine 0.56 mg/dL N 0.51-0.95 BUN/Creatinine Ratio 21.4 High 8-20 Calcium 9.3 mg/dL N 8.6-10.3 Total Protein 6.6 g/dL N 6.4-8.9 Albumin 3.7 g/dL N 3.2-5.2 Globulin 2.9 g/dL N 2-4 Albumin/Globulin Ratio 1.3 N 1-3 Total Bilirubin 0.50 mg/dL N 0.2-1.0 Alkaline Phosphatase 41 U/L N 34-104 Alt 11 U/L N 7-52 Ast 15 U/L N 13-39 Egfr Non- 111.6 N >60 Egfr 143.5 N >60 31 Laboratory test 03/09/2017 [facility] Magnesium 1.8 mg/dL Low 1.9-2.7 finding [address] [place] [address] [phone] Troponin-I (TnI) 0.01 ng/mL N <0.04 B-Type Natriuretic Peptide BNP 34 pg/mL N 32 Laboratory test 03/09/2017 [facility] Lactic Acid 0.9 mmol/L N 0.5-2.0 33 finding [address] [place] [address] [phone] Inr/Protime 03/09/2017 [facility] Inr 1.32 High 0.89-1.11 [address] [place] [address] [phone] CBC Auto Diff 03/09/2017 [facility] White Blood 6.8 10^3/uL N 3.5-10.[address] [place] [address] [phone] Red Blood Count 4.71 10^6/uL N 4.0-5.4 Hemoglobin 11.1 g/dL Low 12.0-16.0 Hematocrit 35 % N 35-47 Mean Corpuscular Volume 75 fL Low 80-97 Mean Corpuscular Hemoglobin 24 pg Low 27-31 Mean Corpuscular HGB Conc 31 g/dL N 31-36 Red Cell Distribution Width 21 % High 10.5-15 Platelet Count 237 10^3/uL N 150-450 Mean Platelet Volume 10 um3 N 7.4-10.4 Abs Neutrophils 4.8 10^3/uL N 1.5-7.7 Abs Lymphocytes 1.2 10^3/uL N 1.0-4.8 Abs Monocytes 0.5 10^3/uL N 0-0.8 Abs Eosinophils 0.2 10^3/uL N 0-0.6 Abs Basophils 0.1 10^3/uL N 0-0.2 Abs Nucleated RBC 0 10^3/uL N Granulocyte % 70.1 % N 38-83 Lymphocyte % 17.5 % Low 25-47 Monocyte % 7.6 % N 1-9 Eosinophil % 3.6 % N 0-6 Basophil % 1.2 % N 0-2 Nucleated Red Blood Cells % 0.1 N Inr/Protime 03/02/2017 [facility] Inr 2.53 High 0.89-1.[address] [place] [address] [phone] Protime W/ Inr 02/23/2017 Other Rendering Inr 3.1 Protime W/ Inr 02/16/2017 Other Rendering Inr 2.7 Protime W/ Inr 02/09/2017 Other Rendering Inr 3.0 Protime W/ Inr 02/02/2017 Other Rendering Inr 2.1 Protime W/ Inr 01/28/2017 [facility] Prothrombin Time 29.3 Inr 2.4 Protime W/ Inr 01/26/2017 Other Rendering Inr 3.1 Protime W/ Inr 01/19/2017 Other Rendering Inr 3.0 CBC Auto Diff 01/19/2017 [facility] White Blood 8.0 10^3/uL N 3.5-10.[address] [place] [address] [phone] Red Blood Count 4.01 10^6/uL N 4.0-5.4 Hemoglobin 9.7 g/dL Low 12.0-16.0 Hematocrit 31 % Low 35-47 Mean Corpuscular Volume 78 fL Low 80-97 Mean Corpuscular Hemoglobin 24 pg Low 27-31 Mean Corpuscular HGB Conc 31 g/dL N 31-36 Red Cell Distribution Width 24 % High 10.5-15 35 Platelet Count 278 10^3/uL N 150-450 Mean Platelet Volume 9 um3 N 7.4-10.4 Abs Neutrophils 6.1 10^3/uL N 1.5-7.7 Abs Lymphocytes 1.0 10^3/uL N 1.0-4.8 Abs Monocytes 0.5 10^3/uL N 0-0.8 Abs Eosinophils 0.3 10^3/uL N 0-0.6 Abs Basophils 0.1 10^3/uL N 0-0.2 Abs Nucleated RBC 0.01 10^3/uL N Granulocyte % 76.1 % N 38-83 Lymphocyte % 12.6 % Low 25-47 Monocyte % 6.4 % N 1-9 Eosinophil % 4.2 % N 0-6 Basophil % 0.7 % N 0-2 Nucleated Red Blood Cells % 0.1 N Xray 11/16/2016 [facility] Hip Left 2 <pending> [address] [place] [address] Pelvis [phone] CBC With 07/06/2008 [facility] White Blood 4.2 CUMM Low 4.8- 10 Electronic Diff [address] Count .8 [place] [address] [phone] Red Cell Count 4.20 CUMM Low 4.6-6.2 [...] 0-0.6 Abs Basophils 0 0-0.2 Lipid Profile 07/06/2008 [facility] Triglyceride 1052 High 40- 200 (Trig/Chol/HDL) [address] mg/[place] [address] [phone] Cholesterol 310 mg/dL High Less Than 200 36 Cholesterol/HDL Ratio 10.33 AVERAGE High 1-4.97 Low Density Lipoprotein (SEE NOTE) mg/dL Less Than 100 37 High Density Lipoprotein 30 mg/dL Low 40-60 38 Laboratory test 07/06/2008 [facility] TSH 2.94 MIU/ML 0.34- 5.[address] [place] [address] [phone] Comp Metabolic 07/06/2008 [facility] Sodium 135 mmol/L 135- [address] [place] [address] [phone] Potassium 4.1 mmol/L 3.5-5.0 Chloride 101 mmol/L 101-111 Co2 (Carbon Dioxide) 28.0 mmol/L 22-32 Anion Gap 6.0 mmol/L 2-11 39 Glucose 97 mg/dL 70-100 40 BUN 19 mg/dL 6-24 Creatinine 1.3 mg/dL 0.5-1.4 One Over Creatinine 0.76 BUN/Creatinine Ratio 14.6 8-20 Calcium 8.8 mg/dL 8.1-9.9 41 Total Protein 5.9 GM/DL Low 6.2-8.1 Albumin 3.7 GM/DL 3.6-5.4 Globulin 2.2 GM/DL 2-4 Albumin/Globulin Ratio 1.7 1-3 Bilirubin Total 0.8 mg/dL 0.4-1.5 Alkaline Phosphatase 89 U/L 39-117 Alt (SGPT) 25 U/L 17-63 Ast (Sgot) 21 U/L 12-42 CBC With 12/29/2007 [facility] White Blood 7.2 CUMM 4.8-10.8 Electronic Diff [address] [place] [address] [phone] Abs Basophils 0 0-0.2 Abs Eosinophils 0.4 [...] % 10.5-15 1 SEE RESULT BELOW Name: POWER JAINKHLOE Hope : [address]: Iam Bruce MD Acct: [id number] Unit: [id number] AGE: 58 Location: ED Re06/29/18 SEX: F Status: REG ER SPEC: [id number] SAMMIE: 06/29/[address]: Shahbaz IRIZARRY REQ: [id number] RECD: 06/29/18 STATUS: RES OTHR DR: Serena Bruce MD _ SOURCE: ABDOMEN SPDESC: ORDERED: MRSA/SA SSTI, Culture Stain COMMENTS: Procedure Result Reported Site MRSA/S. aureus SSTI PCR PENDING Wound/Misc Gram Stain Preliminary 06/29/18- 8586 ML 4+ Neutrophils 2+ Gram Positive Cocci in Clusters, resembling Staph Wound/Misc Culture PENDING * ML - Main Lab . END OF REPORT DEPARTMENT OF PATHOLOGY, [address] [place] [address] David Romero M.D. Director JANETT # [id number] 2 SEE RESULT BELOW Name: BETTINA JAIN : [address]: Ngozi Lloyd MD Acct: [id number] Unit: [id number] AGE: 58 Location: [place] [address]- Re06/29/18 Dis: 06/30/18 SEX: F Status: DIS Nancy SPEC: [id number] SAMMIE: 06/29/[address]: Shahbaz IRIZARRY REQ: [id number] RECD: 06/29/18 STATUS: MARIE JESSICA DR: Serena Burce MD _ SOURCE: ABDOMEN SPDESC: ORDERED: MRSA/SA SSTI, Culture Stain COMMENTS: Verbal to [id number] by [id number] at 1826 on 06/29/18. Results read back accurately. Procedure Result Reported Site MRSA/S. aureus SSTI PCR Final 06/29/18- 1824 ML Organism 1 MRSA POSITIVE Organism 2 S.AUREUS POSITIVE Wound/Misc Gram Stain Final 06/30/18- 0437 ML 4+ Neutrophils 2+ Gram Positive Cocci in Clusters, resembling Staph Wound/Misc Culture Final 07/01/18- 1046 ML Organism 1 MRSA Quantity 3+ Consistent with previous results. 1. MRSA M.I.C. RX --------- ------ Penicillin >=0.5 R Clindamycin <=0.25 S Erythromycin >=8 R Gentamicin <=0.5 S Linezolid 2 S Oxacillin >=4 R * Quinupristin/Dalfopristin <=0.25 S Rifampin <=0.5 S Tetracycline <=1 S CONTINUED ON NEXT PAGE DEPARTMENT OF PATHOLOGY, [address] [place] [address] David Romero M.D. Director [facility] # [id number] Patient: BETTINA JAIN [id number] (Continued) Specimen: [id number] Collected: 06/29/18 Received: 06/29/18 (Continued) Procedure Result Reported Site Wound/Misc Culture Final (continued) 07/01/18- 1045 1. MRSA (continued) M.I.C. RX --------- ------ Doxycycline - Deduced S * Minocycline - Deduced S Trimethoprim/Sulfamethoxazole <=10 S Vancomycin 1 S Imipenem-Deduced R * Ampicillin/Sulbactam-Deduced R Cefazolin-Deduced R * These antibiotics are not available in the [facility] Formulary Contact the Microbiology Department for any additional antibiotic reporting. * - [facility] . END OF REPORT DEPARTMENT OF PATHOLOGY, [address] [place] [address] David Romero M.D. Director [facility] # [id number] 3 Because ethnic data is not always [...] 5 Kidney failure <15 (or dialysis) 4 [facility] Severe Sepsis and Septic Shock Management Bundle Measure requires all lactic acids initially measuring >2.0 mmol/L be repeated. 5 SEE RESULT BELOW Name: BETTINA JAIN : [address]: Hernan Campa MD Acct: [id number] Unit: [id number] AGE: 58 Location: WOUND Re06/17/18 SEX: F Status: REG REF SPEC: [id number] SAMMIE: 06/17/18-1015 [facility] DR: Hernan Campa MD REQ: [id number] RECD: 06/17/18-1223 STATUS: JANINE JESSICA DR: Serena [...] 1459 END OF REPORT DEPARTMENT OF PATHOLOGY, [address] [place] [address] David Romero M.D. Director [facility] # [id number] 6 Because ethnic data is not always readily [...] 15-29 5 Kidney failure <15 (or dialysis) 7 SEE RESULT BELOW Name: BETTINA JAIN : [address]: Serena Murillo MD Acct: [id number] Unit: [id number] AGE: 58 Location: [facility] Re04/14/18 SEX: F Status: REG REF SPEC: [id number] SAMMIE: 04/14/18-[address]: Serena Murillo MD REQ: [id number] RECD: 04/14/18 STATUS: COMP _ SOURCE: URINE SPDESC: ORDERED: Urine Culture COMMENTS: [id number] Urine Source: Random Procedure Result Reported Site Urine Culture Final 04/16/18- 0806 ML No growth of clinically significant organisms * ML - Main Lab . END OF REPORT DEPARTMENT OF PATHOLOGY, [address] [place] [address] David Romero M.D. Director [facility] # [id number] 8 Because ethnic data is not always [...] 5 Kidney failure <15 (or dialysis) 9 Please note the change in INR reference range effective 17. 10 [facility] Severe Sepsis and Septic Shock Management Bundle Measure requires all lactic acids initially measuring >2.0 mmol/L be repeated. 11 Please note the change in INR [...] pg/mL: likely moderate to severe CHF 15 Please note the change in INR reference range effective 17. 16 Because ethnic data is not always readily [...] 15-29 5 Kidney failure <15 (or dialysis) 17 Acute inflammation: >10.00 18 >100 to <200 pg/mL: likely compensated congestive heart failure (CHF) 200 to 400 pg/mL: likely moderate CHF >400 pg/mL: likely moderate to severe CHF 19 SEE RESULT BELOW Name: BETTINA JAIN : [address]: Tamir Germain MD Acct: [id number] Unit: [id number] AGE: 57 Location: ED Re07/22/17 SEX: F Status: DEP ER SPEC: [id number] SAMMIE: 07/22/17-[address]: Tamir Germain MD REQ: [id number] RECD: 07/22/17-1250 STATUS: COMP KATHRYNHR DR: Serena Murillo MD _ SOURCE: URINE SPDESC: ORDERED: Urine Culture Procedure Result Reported Site Urine Culture Final 07/23/17- 1159 ML Mixed melanie; possible contamination. Suggest resubmission. * ML - MAIN LAB ([facility]) . END OF REPORT * ML=Testing performed at Main Lab DEPARTMENT OF PATHOLOGY, [address] [place] [address] David Romero M.D. Director [facility] # [id number] 20 >100 to <200 pg/mL: likely compensated congestive heart failure (CHF) 200 to 400 pg/mL: likely moderate CHF >400 pg/mL: likely moderate to severe CHF 21 [facility] Severe Sepsis and Septic Shock Management Bundle Measure requires all lactic acids initially measuring >2.0 mmol/L be repeated. 22 Because ethnic data is not always readily [...] 15-29 5 Kidney failure <15 (or dialysis) 23 Acute inflammation: >10.00 24 SEE RESULT BELOW Name: BETTINA JAIN : [address]: Ngozi Lloyd MD Acct: [id number] Unit: [id number] AGE: 57 Location: [facility] Re06/30/17 SEX: F Status: REG REF SPEC: [id number] SAMMIE: 06/30/17-2099 [facility] DR: Ngozi Llyod MD REQ: [id number] RECD: 07/01/17 STATUS: MARIE JESSICA DR: Madelin Murillo MD _ SOURCE: URINE SPDESC: ORDERED: Urine Culture QUERIES: Urine Source: Random Procedure Result Reported Site Urine Culture Final 07/03/17- 0825 ML Organism 1 ESCHERICHIA COLI [place] Count 50-75,000 (Many) CFU/ML Organism 2 NORMAL MELANIE [place] Count 25-50,000 (Moderate) CFU/ML 1. ESCHERICHIA COLI [...] antibiotic reporting. * ML - MAIN LAB ([facility]) . END OF REPORT * ML=Testing performed at Main Lab DEPARTMENT OF PATHOLOGY, [address] [place] [address] David Romero M.D. Director [facility] # [id number] 25 Because ethnic data is not always [...] 5 Kidney failure <15 (or dialysis) 26 Acute inflammation: >10.00 27 SEE RESULT BELOW Name: BETTINA JAIN Herminia : [address]: Serena Murillo MD Acct: [id number] Unit: [id number] AGE: 57 Location: [facility] Re06/01/17 SEX: F Status: REG REF SPEC: [id number] SAMMIE: 06/01/17-[address]: Serena Murillo MD REQ: [id number] RECD: 06/01/17 STATUS: COMP _ SOURCE: URINE SPDESC: ORDERED: Urine Culture Procedure Result Reported Site Urine Culture Final 06/02/17- 1552 ML Organism 1 CORYNEBACTERIUM STRIATUM [place] Count 50-75,000 (Many) CFU/ML * ML - MAIN LAB ([facility]) . END OF REPORT * ML=Testing performed at Main Lab DEPARTMENT OF PATHOLOGY, [address] [place] [address] David Romero M.D. Director [facility] # [id number] 28 [id number] 29 Because ethnic data is not always readily [...] 15-29 5 Kidney failure <15 (or dialysis) 30 [place] Severe Sepsis and Septic Shock Management Bundle Measure requires all lactic acids initially measuring >2.0 mmol/L be repeated. 31 Because ethnic data is not always readily [...] 15-29 5 Kidney failure <15 (or dialysis) 32 >100 to <200 pg/mL: likely compensated congestive heart failure (CHF) 200 to 400 pg/mL: likely moderate CHF >400 pg/mL: likely moderate to severe CHF 33 [place] Severe Sepsis and Septic Shock Management Bundle Measure requires all lactic acids initially measuring >2.0 mmol/L be repeated. 34 [id number] 35 Consistent with previous results on 01/16/17. 36 CHOLESTEROL INTERPRETATION: Desirable: Less than 200 MG/DL Borderline-High Risk: 200-239 MG/DL High-Risk: 240 MG/DL and over 37 UNABLE TO CALCULATE LDL TRIGLYCERIDE IS > 400 38 HDL INTERPRETATION: Undesirable: High Risk: Less than 40 MG/DL Desirable: Low Risk: Greater than 60 MG/DL 39 Anion gap measurement may be of limited value in the presence of any alkalosis, especially in a combined acid base disorder. . 40 Note change in reference range as of 05/10/08. The change was based on recommendations from the [place] [employer]. 41 Please note change in reference range effective 08 . Procedures Date Code Description Status 10/06/2018 19572 EKG Tracing & Interpretation Completed 07/26/2018 16930 Inject/Drain Joint/Bursa Major W/O US Completed 06/17/2018 74539 Biopsy Skin Lesion Single Completed 05/09/2018 75968 Destruction Of Benign Lesions Any Method 1-14 lesions Completed 04/19/2018 53680 EKG Tracing & Interpretation Completed 08/01/2017 28486 EKG, Interpretation Only Completed 06/14/2017 99415 Collier/Facet/Foraminotomy;Vertebral Segment; Lumbar Completed 06/14/2017 48787 Collier/Facet/Foraminotomy;Vertebral Segment; Lumbar Completed 06/14/2017 37373 Use Of Operating Microscope Completed 06/14/2017 30865 Use Of Operating Microscope Completed 03/30/2017 69397 EKG Tracing & Interpretation Completed 03/10/2017 81346 Treadmill Interp/Report Only Completed 03/10/2017 57367 Stress Test Supervsn W/Out I/R Completed 01/04/2017 92653 EKG, Interpretation Only Completed 12/28/2016 60847 Removal Skin Tags Up To 15 Completed 12/20/2016 95478 ECHO Transthorasic Realtime 2D W Doppler & Color Flow Hosp Completed 12/20/2016 00453 EKG, Interpretation Only Completed 11/16/2016 18692 Inject/Drain Joint/Bursa Major W/O US Completed 09/30/2016 60526 EKG Tracing & Interpretation Completed 02/06/2016 04982 Left Heart Cath. Incl S/I Coronaries, Angio S/I V Gram If Completed Done 02/04/2016 88246 Treadmill Interp/Report Only Completed 02/04/2016 39284 Stress Test Supervsn W/Out I/R Completed 11/26/2015 35610 ECHO Transthoracic, Real-Time 2D With Doppler And Color Completed Flow 11/14/2015 81802 EKG Tracing & Interpretation Completed 07/18/2014 82955 Treadmill Interp/Report Only Completed 07/18/2014 10811 Stress Test Supervsn W/Out I/R Completed 06/29/2014 15351 ECHO Transthoracic, Real-Time 2D With Doppler And Color Completed Flow 06/07/2014 94221 EKG Tracing & Interpretation Completed 02/07/2009 34284 EKG Tracing & Interpretation Completed 11/12/2008 65325 Color Flow Doppler/Interp & Reprt Completed 11/12/2008 18293 Pulse Wave/Continuous-Interp.RPT Completed 11/12/2008 08964 Echocardiogram Completed 11/11/2008 01539 Treadmill Interp/Report Only Completed 11/11/2008 50679 Stress Test Supervsn W/Out I/R Completed 11/10/2008 56391 EKG, Interpretation Only Completed 01/27/2008 18230 Echocardiogram Completed 01/27/2008 71113 Pulse Doppler & Continuous Wave Completed 01/27/2008 58212 Pulse Doppler & Continuous Wave Completed 01/27/2008 24901 Color Doppler Completed 01/27/2008 74549 Color Doppler Completed 09/22/2007 54793 EKG Tracing & Interpretation Completed 09/22/2007 47099 EKG Tracing & Interpretation Completed 05/16/2007 14792 EKG Tracing & Interpretation Completed 05/05/2007 11622 Echocardiogram Completed 05/05/2007 12804 Echocardiogram Completed 05/05/2007 39574 Pulse Doppler & Continuous Wave Completed 05/05/2007 01345 Pulse Doppler & Continuous Wave Completed 05/05/2007 44230 Color Doppler Completed 03/08/2007 36506 EKG, Interpretation Only Completed 03/08/2007 45563 EKG, Interpretation Only Completed 01/10/2007 25569 EKG Tracing & Interpretation Completed 12/25/2006 66119 EKG, Interpretation Only Completed 12/24/2006 50986 Left Heart Catheterization Completed 12/24/2006 16062 Left Heart Catheterization Completed 12/24/2006 58550 Inj Proc LFT Vent/LFT Atrl Angio Completed 12/24/2006 24132 Coronary Angiography Completed 12/24/2006 02268 Coronary Angiography Completed 12/24/2006 75311 S/I/R Inj Proc Vent And Or Atrial Completed 12/24/2006 29545 Selective Coronary Angioplasty Completed 12/24/2006 15881 Selective Coronary Angioplasty Completed 12/23/2006 26057 Color Flow Doppler/Interp & Reprt Completed 12/23/2006 26153 Pulse Wave/Continuous-Interp.RPT Completed 12/23/2006 38390 Pulse Wave/Continuous-Interp.RPT Completed 12/23/2006 71225 Echocardiogram Completed 12/23/2006 88464 EKG, Interpretation Only Completed 12/23/2006 92431 EKG, Interpretation Only Completed 12/21/2006 24140 Stress ECHO Interpretation/Report Hospital Completed 12/21/2006 33644 Stress ECHO Interpretation/Report Hospital Completed 12/21/2006 65062 Treadmill Interp/Report Only Completed 12/21/2006 50191 Stress Test Supervsn W/Out I/R Completed 12/21/2006 62091 Stress Test Supervsn W/Out I/R Completed Encounters Type Date Location Provider Dx Diagnosis Office Visit 09/06/2018 Pulmonology And Sleep Cathy Hubbard MD R06.83 Snoring 1:45p Services Of [facility] R53.83 Other fatigue E66.01 Morbid (severe) obesity due to excess calories Office Visit 08/24/2018 12:10p [facility] Internal Serena Z79.01 terminal gauger ( current) Medicine - Antonio Murillo use of [place] anticoagulants I26.99 Other pulmonary embolism without acute cor pulmonale B86 Scabies Office Visit 08/16/2018 1:40p [facility] Internal Serena Z79.01 terminal gauger ( current) Medicine - Antonio Murillo use of [place] anticoagulants I26.99 Other pulmonary embolism without acute cor pulmonale R21 Rash and other nonspecific skin eruption Office Visit 07/26/2018 10:30a Orthopedic Gloria Morales, M25.511 Pain in right Services Of MD tiera Arceo M75.41 Impingement syndrome of right shoulder Office Visit 07/19/2018 9:50a [facility] Internal Serena Z79.01 longterm ( current) Laura Murillo M.D. use of [place] anticoagulants I27.82 Chronic pulmonary embolism B95.62 Methicillin resis staph infct causing diseases classd elswhr L02.211 Cutaneous abscess of abdominal wall E04.1 Nontoxic single thyroid nodule Z12.31 Encntr screen mammogram for malignant neoplasm of breast M25.511 Pain in right shoulder Office Visit 07/15/2018 9:00a Wound Care Hernan Ferreira.3 Panniculitis, Center AT [facility] MD Katheryn, unspecified FACS E66.01 Morbid (severe) obesity due to excess calories Office Visit 06/30/2018 [facility] Ngozi Lloyd, B95.62 Methicillin resis 12:03p Asskaren,diana Alvarez staph infct Hospitalists causing diseases classd elswhr L03.311 Cellulitis of abdominal wall M79.3 Panniculitis, unspecified Office Visit 06/30/2018 7:00a Surgical Hernan Ferreira.3 Panniculitis, [facility] Joel Campa MD, unspecified FACS B95.62 Methicillin resis staph infct causing diseases classd elswhr E66.01 Morbid (severe) obesity due to excess calories Office Visit 06/29/2018 [facility] Bahgat L03.311 Cellulitis of 12:02p Assdiana jones PA abdominal wall Hospitalists M79.3 Panniculitis, unspecified Office Visit 06/24/2018 11:15a Wound Care Hernan Ferreira.3 Panniculitis, Center AT [facility] MD Katheryn, unspecified FACS E66.01 Morbid (severe) obesity due to excess calories Office Visit 06/17/2018 9:30a Wound Care Hernan Ferreira.3 Panniculitis, Center AT [facility] MD Katheryn, unspecified FACS Office Visit 06/09/2018 11:50a [facility] Internal Serena L02.211 Cutaneous abscess Medicine - Chidi M.D. of abdominal wall [place] Z23 Encounter for immunization Z79.01 terminal gauger (current) use of anticoagulants Office Visit 05/25/2018 9:50a [facility] Internal Serena Z01.818 Encounter for other Medicine - Antonio Mruillo preprocedural [place] examination M24.574 Contracture, right foot R94.31 Abnormal electrocardiogram [ECG] [EKG] Z86.711 Personal history of pulmonary embolism Z79.01 terminal gauger (current) use of anticoagulants K21.9 Gastro-esophageal reflux disease without esophagitis G47.33 Obstructive sleep apnea (adult) (pediatric) B37.2 Candidiasis of skin and nail M17.9 Osteoarthritis of knee, unspecified I10 Essential (primary) hypertension Z68.44 Body mass index (BMI) 60.0-69.9, adult Office Visit 05/24/2018 Orthopedic Ken M24.574 Contracture, right 10:45a Services Of Antonio Hodges foot C.M.A. Office Visit 05/09/2018 [facility] Dermatology Keshawn Marquez, L82.1 Other seborrheic 10:20a keratosis D18.01 Hemangioma of skin and subcutaneous tissue Z78.9 Other specified health status L53.8 Other specified erythematous conditions R58 Hemorrhage, not elsewhere classified R20.8 Other disturbances of skin sensation Office Visit 04/28/2018 10:30a Orthopedic Ken M79.672 Pain in left foot Services Of Antonio Hodges C.M.A. Office Visit 04/19/2018 10:40a Nai Akers I73.9 Peripheral Cardiology [facility], vascular disease, Machine [employer]op [employer] Antonio unspecified R94.31 Abnormal electrocardiogram [ECG] [EKG] E66.9 Obesity, unspecified G47.33 Obstructive sleep apnea (adult) (pediatric) I36.1 Nonrheumatic tricuspid (valve) insufficiency I27.20 Pulmonary hypertension, unspecified I37.1 Nonrheumatic pulmonary valve insufficiency Office Visit 04/14/2018 10:50a [facility] Internal Serena Murillo, M54.2 Cervicalgia Laura Bolaños R30.0 Dysuria G57.91 Unspecified mononeuropathy of right lower limb L91.8 Other hypertrophic disorders of the skin Z79.01 longterm (current) use of anticoagulants Z86.711 Personal history of pulmonary embolism Office Visit 03/24/2018 Orthopedic Ken G57.91 Unspecified 10:45a Services Of Antonio Hodges mononeuropathy of C.M.A. right lower limb Office Visit 02/03/2018 Orthopedic Ken G57.91 Unspecified 11:00a Services Of Antonio Hodges mononeuropathy of C.M.A. right lower limb G57.92 Unspecified mononeuropathy of left lower limb M48.00 Spinal stenosis, site unspecified M21.371 Foot drop, right foot M21.372 Foot drop, left foot Office Visit 01/04/2018 4:00p [facility] Internal Raffaele Quinteros I73.9 Peripheral Medicine Eliazar Hansen M.D. vascular disease, [place] unspecified N92.0 Excessive and frequent menstruation with regular cycle I10 Essential (primary) hypertension Office Visit 12/08/2017 Neurosurgery Evan M51.36 Other 1:40p Services Of Joel Peralta M.D. intervertebral disc degeneration, lumbar region M79.604 Pain in right leg Office Visit 11/18/2017 10:30a [facility] Internal Serena J06.9 Acute upper Laura Murillo M.D. respiratory [place] infection, unspecified B37.2 Candidiasis of skin and nail Office Visit 10/15/2017 Neurosurgery Ashley High, M54.16 Radiculopathy, 11:00a [facility] PA-C lumbar region Office Visit 10/12/2017 [facility] Internal Serena M79.671 Pain in right foot 10:50a Laura Murillo M.D. [place] L60.3 Nail dystrophy E04.1 Nontoxic single thyroid nodule Z79.01 terminal gauger (current) use of anticoagulants Office Visit 09/02/2017 10:11a [facility] Michele R19.7 Diarrhea, Assoc,diana Anne M.D. unspecified Hospitalists K66.8 Other specified disorders of peritoneum Z86.711 Personal history of pulmonary embolism I10 Essential (primary) hypertension Office Visit 09/01/2017 [facility] Malgorzata Polanco R19.7 Diarrhea, 10:10a Assoc,pc Vargas, CHIEF RADIATION THERAPIST unspecified Hospitalists K66.8 Other specified disorders of peritoneum I10 Essential (primary) hypertension Z86.711 Personal history of pulmonary embolism Office Visit 09/01/2017 7:00a Surgical Hernan Jauregui K66.8 Other specified Associates Of Joel Campa MD, disorders of FACS peritoneum R19.7 Diarrhea, unspecified Office Visit 08/19/2017 12:10p [facility] Internal Serena J40 Bronchitis, not Medicine Eliazar Murillo M.D. specified as acute [place] or chronic Office Visit 08/05/2017 1:40p [facility] Internal Serena R91.8 Other nonspecific Laura Murillo M.D. abnormal finding [place] of lung field E66.01 Morbid (severe) obesity due to excess calories Z11.59 Encounter for screening for other viral diseases N92.0 Excessive and frequent menstruation with regular cycle Z23 Encounter for immunization Z12.31 Encntr screen mammogram for malignant neoplasm of breast G47.33 Obstructive sleep apnea (adult) (pediatric) E04.1 Nontoxic single thyroid nodule Office Visit 08/01/2017 2:46p [facility] Tamir J18.9 Pneumonia, Assoc,EDIE Mayes unspecified Hospitalists organism E66.9 Obesity, unspecified I10 Essential (primary) hypertension Z86.711 Personal history of pulmonary embolism Office Visit 07/31/2017 2:45p [facility] Tamir J18.9 Pneumonia, Assoc,EDIE Mayes unspecified Hospitalists organism E66.9 Obesity, unspecified I10 Essential (primary) hypertension Z86.711 Personal history of pulmonary embolism Office Visit 07/30/2017 [facility] Sarbjit J18.9 Pneumonia, 2:44p Assoc,pc Markie, N.P. unspecified Hospitalists organism E66.9 Obesity, unspecified Z86.711 Personal history of pulmonary embolism I10 Essential (primary) hypertension Office Visit 07/30/2017 10:15a Neurosurgery Ashley High, Z48.89 Encounter for Services Of Joel SHANNON other specified surgical aftercare M54.5 Low back pain Z86.711 Personal history of pulmonary embolism R07.9 Chest pain, unspecified R06.00 Dyspnea, unspecified Office 07/07/2017 [facility] Gricelda Juarez, J06.9 Acute upper Visit 9:15a CHIEF RADIATION THERAPIST respiratory infection, unspecified [facility] K52.9 Noninfective Visit 9:15a CHIEF RADIATION THERAPIST gastroenteritis and colitis, unspecified Office 06/17/2017 [facility] M54.9 Dorsalgia, Visit 3:52p diana Silva, CHIEF RADIATION THERAPIST unspecified Hospitalists E66.01 Morbid (severe) obesity due to excess calories M54.17 Radiculopathy, lumbosacral region Z86.711 Personal history of pulmonary embolism Office Visit 06/16/2017 [facility] M54.9 Dorsalgia, 3:51p diana Silva, CHIEF RADIATION THERAPIST unspecified Hospitalists M54.17 Radiculopathy, lumbosacral region E66.01 Morbid (severe) obesity due to excess calories Z86.711 Personal history of pulmonary embolism Office Visit 06/15/2017 [facility] M54.9 Dorsalgia, 3:50p diana Silva, CHIEF RADIATION THERAPIST unspecified Hospitalists M54.17 Radiculopathy, lumbosacral region E66.01 Morbid (severe) obesity due to excess calories Z86.711 Personal history of pulmonary embolism Office Visit 06/14/2017 [facility] M54.9 Dorsalgia, 3:50p diana Silva, CHIEF RADIATION THERAPIST unspecified Hospitalists M54.17 Radiculopathy, lumbosacral region E66.01 Morbid (severe) obesity due to excess calories Z86.711 Personal history of pulmonary embolism Office Visit 06/13/2017 [facility] M54.9 Dorsalgia, 3:49p diana Silva CHIEF RADIATION THERAPIST unspecified Hospitalists M54.17 Radiculopathy, lumbosacral region E66.01 Morbid (severe) obesity due to excess calories Z86.711 Personal history of pulmonary embolism Office Visit 06/12/2017 12:46p [facility] Ramon Grigsby M54.9 Dorsalgia, Assoc,diana CANNON unspecified Hospitalists M54.17 Radiculopathy, lumbosacral region E66.01 Morbid (severe) obesity due to excess calories Z86.711 Personal history of pulmonary embolism Office Visit 06/11/2017 12:45p [facility] Ramon Grigsby, M54.9 Dorsalgia, Assoc,diana CANNON unspecified Hospitalists M54.17 Radiculopathy, lumbosacral region E66.01 Morbid (severe) obesity due to excess calories Z86.711 Personal history of pulmonary embolism Office Visit 06/10/2017 12:45p [facility] Ramon Grigsby M54.9 Dorsalgia, Assoc,pc unspecified Hospitalists M54.17 Radiculopathy, lumbosacral region E66.01 Morbid (severe) obesity due to excess calories Z86.711 Personal history of pulmonary embolism Office Visit 06/09/2017 12:44p [facility] Tamir M54.9 Dorsalgia, Assoc,pc EDIE Adams unspecified Hospitalists M54.17 Radiculopathy, lumbosacral region E66.01 Morbid (severe) obesity due to excess calories Z86.711 Personal history of pulmonary embolism Office Visit 06/09/2017 Neurosurgery Evan M51.26 Other 7:00a Services Of Joel Peralta M.D. intervertebral disc displacement, lumbar region Office Visit 06/08/2017 [facility] Tamir M54.9 Dorsalgia, 12:44p Assoc,EDIE Mayes unspecified Hospitalists M54.17 Radiculopathy, lumbosacral region E66.01 Morbid (severe) obesity due to excess calories Z86.711 Personal history of pulmonary embolism Office Visit 06/06/2017 12:43p [facility] Shante M54.9 Dorsalgia, Assoc,diana Gonzalez M.D. unspecified Hospitalists M54.17 Radiculopathy, lumbosacral region E66.01 Morbid (severe) obesity due to excess calories Office Visit 06/02/2017 10:15a Orthopedic Services Sharyn Valenzuela M54.5 Low back pain Of C.MApoorvaAApoorva Alvarez M54.16 Radiculopathy, lumbar region Office Visit 04/26/2017 10:00a Orthopedic Sharyn Valenzuela, E66.01 Morbid ( severe) Services Of Marielos Alvarez obesity due to excess calories M25.562 Pain in left knee M25.552 Pain in left hip M25.551 Pain in right hip M16.11 Unilateral primary osteoarthritis, right hip M16.12 Unilateral primary osteoarthritis, left hip M17.12 Unilateral primary osteoarthritis, left knee M54.5 Low back pain Office Visit 03/31/2017 11:50a [facility] Internal Serena Z86.711 Personal history Medicine - Kevin Murillo. of pulmonary [place] embolism Z79.01 longterm (current) use of anticoagulants G47.33 Obstructive sleep apnea (adult) (pediatric) M25.551 Pain in right hip E66.01 Morbid (severe) obesity due to excess calories Office Visit 03/30/2017 Nai Akers Z01.810 Encounter for 2:40p Cardiology Of Antonio Spencer preprocedural [facility] cardiovascular examination E66.01 Morbid (severe) obesity due to excess calories Z68.44 Body mass index (BMI) 60.0-69.9, adult Z86.711 Personal history of pulmonary embolism Z79.01 terminal gauger (current) use of anticoagulants I36.1 Nonrheumatic tricuspid (valve) insufficiency G47.33 Obstructive sleep apnea (adult) (pediatric) R94.31 Abnormal electrocardiogram [ECG] [EKG] Office 03/11/2017 [facility] R07.9 Chest pain, Visit 2:31p Assoc,EDIE Collado unspecified Hospitalists E66.01 Morbid (severe) obesity due to excess calories Z86.711 Personal history of pulmonary embolism Office 03/10/2017 [facility] R07.9 Chest pain, Visit 2:31p Assoc,EDIE Collado unspecified Hospitalists E66.01 Morbid (severe) obesity due to excess calories Z86.711 Personal history of pulmonary embolism Office Visit 03/09/2017 [facility] Sarbjit R07.9 Chest pain, 2:30p Assoc,diana Aden, N.P. 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 G47.33 Obstructive sleep apnea (adult) (pediatric) Office Visit 01/28/2017 10:30a [facility] Internal Serena D62 Acute posthemorrhagic Medicine - Antonio Murillo anemia [place] I26.99 Other pulmonary embolism without acute cor pulmonale E04.1 Nontoxic single thyroid nodule B37.9 Candidiasis, unspecified E66.01 Morbid (severe) obesity due to excess calories L03.116 Cellulitis of left lower limb J98.4 Other disorders of lung Office Visit 01/16/2017 [place] [id number] Acute 2:32p Assoc,pc NASRA Juarez posthemorrhagic Hospitalists anemia I26.99 Other pulmonary embolism without acute cor pulmonale I10 Essential (primary) hypertension E66.01 Morbid (severe) obesity due to excess calories Office Visit 01/15/2017 [place] [address] Acute 2:31p Assoc,pc Sam CHIEF RADIATION THERAPIST posthemorrhagic Hospitalists anemia I26.99 Other pulmonary embolism without acute cor pulmonale I10 Essential (primary) hypertension E66.01 Morbid (severe) obesity due to excess calories Office Visit 01/14/2017 [place] [id number] Acute posthemorrhagic 2:30p diana Silva M.D. anemia Hospitalists I26.99 Other pulmonary embolism without acute cor pulmonale I10 Essential (primary) hypertension E66.01 Morbid (severe) obesity due to excess calories Office Visit 01/13/2017 [place] [address] Acute 2:30p Assocdiana CHIEF RADIATION THERAPIST posthemorrhagic Hospitalists anemia I26.99 Other pulmonary embolism without acute cor pulmonale I10 Essential (primary) hypertension E66.01 Morbid (severe) obesity due to excess calories Office Visit 01/12/2017 [place] [address] Acute 2:29p Assoc,pc Sam CHIEF RADIATION THERAPIST posthemorrhagic Hospitalists anemia I26.99 Other pulmonary embolism without acute cor pulmonale I10 Essential (primary) hypertension E66.01 Morbid (severe) obesity due to excess calories Office Visit 01/11/2017 [place] [address] Acute 4:00p Assoc,pc Sam CHIEF RADIATION THERAPIST posthemorrhagic Hospitalists anemia I26.99 Other pulmonary embolism without acute cor pulmonale E66.01 Morbid (severe) obesity due to excess calories Office Visit 01/10/2017 [place] [address] Acute 4:00p Assoc,pc Campbell, CHIEF RADIATION THERAPIST posthemorrhagic Hospitalists anemia I26.99 Other pulmonary embolism without acute cor pulmonale E66.01 Morbid (severe) obesity due to excess calories Office Visit 01/09/2017 [place] [address] Acute 3:59p Assoc,pc Campbell, CHIEF RADIATION THERAPIST posthemorrhagic Hospitalists anemia I26.99 Other pulmonary embolism without acute cor pulmonale E66.01 Morbid (severe) obesity due to excess calories Office Visit 01/08/2017 [place] [address] Acute 3:59p Assoc,pc Campbell, CHIEF RADIATION THERAPIST posthemorrhagic Hospitalists anemia I26.99 Other pulmonary embolism without acute cor pulmonale E66.01 Morbid (severe) obesity due to excess calories Office Visit 01/07/2017 [place] [address] Acute 2:57p Assoc,pc Campbell, CHIEF RADIATION THERAPIST posthemorrhagic Hospitalists anemia I26.99 Other pulmonary embolism without acute cor pulmonale E66.01 Morbid (severe) obesity due to excess calories Office Visit 01/06/2017 [place] [address] Acute 2:56p Assoc,pc Campbell, CHIEF RADIATION THERAPIST posthemorrhagic Hospitalists anemia I26.99 Other pulmonary embolism without acute cor pulmonale E66.01 Morbid (severe) obesity due to excess calories Office Visit 01/05/2017 [place] [address] Acute 2:56p Assoc,pc Campbell, CHIEF RADIATION THERAPIST posthemorrhagic Hospitalists anemia I26.99 Other pulmonary embolism without acute cor pulmonale E66.01 Morbid (severe) obesity due to excess calories Office Visit 01/04/2017 2:55p [facility], D62 Acute posthemorrhagic Assoc,pc N.P. anemia Hospitalists I26.99 Other pulmonary embolism without acute cor pulmonale E66.01 Morbid (severe) obesity due to excess calories I10 Essential (primary) hypertension Office Visit 01/03/2017 2:53p [facility], D62 Acute posthemorrhagic Assoc,pc N.P. anemia Hospitalists I26.99 Other pulmonary embolism without acute cor pulmonale E66.01 Morbid (severe) obesity due to excess calories Office Visit 12/30/2016 10:40a [facility] Internal Damian Bae, I27.82 Chronic Medicine - M.D. pulmonary [place] embolism N92.0 Excessive and frequent menstruation with regular cycle I10 Essential (primary) hypertension Office Visit 12/23/2016 11:50a [facility] Internal Serena Murillo, R07.1 Chest pain on Medicine - M.D. breathing [place] Z91.120 Pt intentl undrdose of meds regimen due to financl hardship I27.82 Chronic pulmonary embolism Office Visit 12/19/2016 2:39p [facility] Michele I26.99 Other pulmonary Assoc,diana Anne M.D. embolism Hospitalists without acute cor pulmonale E66.01 Morbid (severe) obesity due to excess calories G47.33 Obstructive sleep apnea (adult) (pediatric) I10 Essential (primary) hypertension Office Visit 11/20/2016 3:00p [facility] Internal Ken N92.1 Excessive and Medicine - Marilee Monroe.DApoorva frequent [place] menstruation with irregular cycle G47.33 Obstructive sleep apnea (adult) (pediatric) E66.01 Morbid (severe) obesity due to excess calories L91.8 Other hypertrophic disorders of the skin Office Visit 11/16/2016 9:00a Orthopedic Services Sharyn Valenzuela, M25.562 Pain in left Of C.M.A. M.D. knee M25.552 Pain in left hip M16.12 Unilateral primary osteoarthritis, left hip M17.12 Unilateral primary osteoarthritis, left knee Office Visit 09/30/2016 3:00p [facility] Qutaybeh S. I10 Essential Antonio Spencer (primary) hypertension E66.01 Morbid (severe) obesity due to excess calories Z68.44 Body mass index (BMI) 60.0-69.9, adult R94.31 Abnormal electrocardiogram [ECG] [EKG] Office Visit 08/05/2016 11:30a Orthopedic Services Sharyn Valenzuela, M25.562 Pain in left Of C.M.A. M.D. knee S82.002D Unsp fracture of left patella, subs for clos fx w routn heal M17.12 Unilateral primary osteoarthritis, left knee Office Visit 06/05/2016 11:30a Orthopedic Sharyn Valenzuela, S82.002D Unsp fracture Services Of Antonio of left C.M.A. patella, subs for clos fx w routn heal M17.12 Unilateral primary osteoarthritis, left knee Office Visit 05/04/2016 1:15p Orthopedic Sharyn Valenzuela, S82.002D Unsp fracture Services Of Antonio of left C.M.A. patella, subs for clos fx w routn heal M17.12 Unilateral primary osteoarthritis, left knee M25.562 Pain in left knee Office Visit 04/27/2016 Orthopedic Sharyn M17.12 Unilateral primary 3:30p Services Of Antonio Valenzuela osteoarthritis, left C.M.A. knee M25.562 Pain in left knee S82.002A Unsp fracture of left patella, init for clos fx S80.12xA Contusion of left lower leg, initial encounter M25.531 Pain in right wrist M25.532 Pain in left wrist Office Visit 04/20/2016 Orthopedic Vaughn Landon, M17.12 Unilateral primary 9:00a Services Of Antonio osteoarthritis, left C.M.A. knee Office Visit 02/12/2016 [facility] Moisés Garrison R07.9 Chest pain, 4:00p Of Machine Hoop Maker AT [facility] MD Dariana, unspecified FACC, FSCAI Office Visit 02/06/2016 [facility] Ngozi R07.9 Chest pain, 1:13p Assoc,diana Lloyd M.D. unspecified Hospitalists E66.01 Morbid (severe) obesity due to excess calories L02.419 Cutaneous abscess of limb, unspecified I10 Essential (primary) hypertension Office Visit 02/05/2016 [facility] Ngozi Lloyd, R07.9 Chest pain, 1:13p Assocdiana M.D. unspecified Hospitalists E66.01 Morbid (severe) obesity due to excess calories L02.419 Cutaneous abscess of limb, unspecified I10 Essential (primary) hypertension Office Visit 02/05/2016 2:54p [facility] Cahz Hannah R07.9 Chest pain, Of Joel García M.D. unspecified R94.31 Abnormal electrocardiogram [ECG] [EKG] Office Visit 02/04/2016 [facility] Marley Stern, L02.411 Cutaneous 7:39a Assoc,pc PA abscess of right Hospitalists axilla Office Visit 02/03/2016 [facility] Ngozi Lloyd, R07.9 Chest pain, 1:10p diana Silva M.D. unspecified Hospitalists E66.01 Morbid (severe) obesity due to excess calories I10 Essential (primary) hypertension Office Visit 11/14/2015 11:00a [facility] Leidy S. I10 Essential Antonio Spencer (primary) hypertension R06.02 Shortness of breath G47.33 Obstructive sleep apnea (adult) (pediatric) E66.01 Morbid (severe) obesity due to excess calories I25.10 Athscl heart disease of [place] coronary artery w/o ang pctrs Office Visit 02/25/2015 9:00a [facility] Julianne Lorenzis, 401.1 Hypertension Benign PA 786.05 Shortness Of Breath 327.23 Obstructive Sleep Apnea Adult & Pediatric 278.01 Obesity Morbid 414.01 Coronary Atherosclerosis [place] Office Visit 12/24/2014 9:30a Pulmonology And Cathy 327.23 Obstructive Sleep Sleep Services Of MD Haydee Apnea Adult & Machine Hoop Maker Pediatric 278.01 Obesity Morbid 493.10 Asthma Intrinsic Unspecified 530.81 Esophageal Reflux Office Visit 08/01/2014 9:40a [facility] Qutaybeh S. 786.05 Shortness Of Antonio Spencer Breath 278.01 Obesity Morbid 401.1 Hypertension Benign 414.01 Coronary Atherosclerosis [place] Office Visit 07/18/2014 10:30a [facility] Qutaybeh S. 786.05 Shortness Of Antonio Spencer Breath 786.50 Pain Chest Unspec 278.01 Obesity Morbid Office Visit 06/07/2014 [place] Qutaybeh S. 414.01 Coronary 1:40p Cardiology Antonio Spencer Atherosclerosis [place] 401.1 Hypertension Benign 794.31 Electrocardiogram (ECG) (EKG) Abnormal 786.50 Pain Chest Unspec 786.05 Shortness Of Breath 782.3 Edema Office Visit 03/12/2009 [place] Qutaybeh S. 414.01 Coronary 1:00p Nina Spencer M.D. Atherosclerosis [place] 401.1 Hypertension Benign 426.3 Left Bundle Branch Block Other Office 02/07/2009 [place] Qutaybeh S. 794.31 Electrocardiogram Visit 3:20p Nina Spencer M.D. (ECG) (EKG) Abnormal 786.50 Pain Chest Unspec 414.01 Coronary Atherosclerosis [place] 401.1 Hypertension Benign Office Visit 02/01/2008 Madelin Lairdeh S. 414.01 Coronary 9:00a Nina Spencer M.D. Atherosclerosis [place] 401.1 Hypertension Benign 415.19 Pulmonary Embolism And Infarction Other 427.1 Paroxysmal Ventricular Tachycardia 424.0 Mitral Valve Disorder 424.2 Tricuspid Valve Disorder Spec as Nonrheumatic Office Visit 09/22/2007 Madelin Lairdeh S. 414.01 Coronary 9:00a Nina Spencer M.D. Atherosclerosis [place] 401.1 Hypertension Benign 415.19 Pulmonary Embolism And Infarction Other 794.31 Electrocardiogram (ECG) (EKG) Abnormal 427.1 Paroxysmal Ventricular Tachycardia Office Visit 05/16/2007 Madelin Maldonadocurtismaliha S. 414.01 Coronary 10:00a Nina Spencer M.D. Atherosclerosis [place] 401.1 Hypertension Benign 415.19 Pulmonary Embolism And Infarction Other 411.89 Ischemic Heart Disease Other Office Visit 01/10/2007 Madelin Forbes S. 414.01 Coronary 10:20a Nina Spencer M.D. Atherosclerosis [place] 401.1 Hypertension Benign 415.19 Pulmonary Embolism And Infarction Other 794.31 Electrocardiogram (ECG) (EKG) Abnormal Plan of Treatment Future Appointment(s):10/10/2018 2:45 pm - Ken Hodges M.D. at [facility]10/06/2018 - Serena Murillo M.D.Z01.818 Encounter for other preprocedural examinationComments:Undergoing elective Right foot surgery on by Dr. Hodges, is going to see cardiology for cardiac clearance today, has untreated sleep apnea( work up is underway) , coumadin has been held since yesterday and will require Lovenox bridging to prevent recurrent PE ( which she has a history of ) ,patient aware to hold lovenox on the morning of 10/10 and will need to resume Lovenox and coumadin post operatively until INR is therapeutic and it is safe to resume per Dr. Hodges , she is advised to proceed with her surgery pending cardiac vfagkxcrdI02.01 Short Achilles tendon (acquired ), right lbbqwX51.99 Other pulmonary embolism without acute cor pulmonaleComments:history of recurrent PE, on lovenox currently for increased risk perioperatively /wheel chair bound status )I10 Essential (primary) hypertensionComments:aumiewK64.33 Obstructive sleep apnea (adult) (pediatric) Comments:please follow up with the sleep study after your gdivxymgsL54.9 Gastro- esophageal reflux disease without esophagitisComments:stable with xodropwsrrD40.31 Abnormal electrocardiogram [ECG] [EKG]B37.2 Candidiasis of skin and nailNew Medication:Clotrimazole/Betamethasone Dipropionate 1-0.05 % - apply to affected area underneath right breast x10 daysE04.1 Nontoxic single thyroid noduleComments:needs repeat thyroid ultrasound after surgery as it has not been done so farN93.8 Other specified abnormal uterine and vaginal bleedingComments:somewhat stable at this ygjinI23.44 Body mass index (BMI) 60.0- 69.9, adultComments:heel chair bound status
--- OUTSIDE RECORDS SUMMARY | 2018-10-10 11:48 | XMS REPORT | Continuity of Care Document ---
:1960 External Reference #:[id number] Author Name Melanie Adler Care Team Providers Name Role Phone Serena Murillo MD Primary Care Physician Unavailable Payers Type Date Identification Numbers Payment Provider Subscriber Policy Number: [id number] Medicaid [employer] Name: 1 1 [address] PayID: [id number] [place] [address] Expires: 2018 Policy Number: [id number] Private Bettina Jain PayID: [id number] Effective: 2016 Policy Number: [employer] Medicaid Bettina Jain [id number] Expires: 2018 PayID: [id number] [address] [address] [place] [address] Expires: 2015 Policy Number: [employer] Medicaid Bettina Jain [id number] PayID: [id number] [address] [address] [place] [address] Effective: 2006 Policy Number: [employer] Medicaid Bettina Jain [id number] Expires: 2007 PayID: [id number] [address] [place] [address] Advance Directives Description No Information Available Problems [...] Active vns to draw inr Chidi weekly Antonio Tylenol Extra 07/26 Active Tablets 500mg 60tab Take 2 M75.41 Zaneb s every 8 MD Carmen hours Ferrous Gluconate 06/27 Active Tablets 324(38Fe) 60tab -take one mg s tablet by Chidi mouth M.DApoorva twice a day Warfarin Sodium 01/25 Active Tablets 5mg 90tab 1 tab s daily or nitin Murillo M.D. directed (managed by pmd) Nystatin 11/18 Active Powder [id number] 90gm apply to t/GM affected luisana Murillo M.D. twice a day as needed for rash x 10 days Wheelchair 08/11 Active Misc 1unit as needed s Antonio Murillo Walker [place] 01/19 Active Misc -09/27" 1unit as needed Serena Wheels/ Liana Gates M.D. Holes/-09/27" Ventolin HFA 01/16 Active Aerosol 108(90Bas 18uni 2 puffs by /2016 e) ts mouth q4 Ordering mcg/Act hrs as Provider needed Metoprolol 01/16 Active Tablets 25mg 30tab Take Serena Tartrate s One-Half Chidi Tablet By Antonio Mouth Every 12 Hours Ranitidine HCL 12/23 Active Tablets 300mg 90tab 1 by mouth Serena /2015 s every day Antonio Murillo Permethrin 08/24 Hx Cream 5% 1unit apply to B86 s all body Chidi, - once neck M.D. 09/05 repeat in 1 week Chlorhexidine 10/30 Hx Liquid 2% 354ml shower B95.62 Serena Gluconate daily x 7 Chidi - days M.D. 08/16 Mupirocin 10/30 Hx Ointment 2% 22gm apply thin B95.62 [...] Tablets 150mg 2tabs 1 by mouth Serena /2017 every day Chidi, - M.D. 05/09 Fluconazole [...] once a day Nystop 12/23 Hx Powder [id number] 120un apply to t/GM its affected Chidi, - area twice M.D. 04/25 a day 10 days as needed Ferrous Gluconate 12/23 Hx Tablets 240(27Fe) 90tab once a day mg s Chidi, - M.D. 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 09/29 hours needed pain Metoprolol 11/14 Hx Tablets 100mg 90tab 1/2 by Ken Tartrate s mouth Fer, - twice a M.D. [...] Tablets ER 30mg 30tab 1 po qd Qu 24HR s S. Eliazar Spencer, 06/06 M.D. Singulair 05/16 Hx Tablets 10mg 90tab 1 PO qd Qutayb s S. - Tj, 06/06 M.D. Nitroquick 01/10 Hx Tablets 0.4mg 30tab 1 S/L prn Quyb Sub s Chest S. - Pain, Q 5 Tj, 06/06 Min. Up To M.D. 3 Tabs Warfarin Sodium 01/10 Hx Tablets 2mg as directed S. - by Dr. Spencer, 02/07 Tobias M.D. /2008 Omeprazole 01/10 Hx Capsules 20mg 1 PO bid Qutayb DR Oswald Spencer, 12/24 M.D. Metoprolol 01/10 Hx Tablets 100mg 45tab 1/2 po bid Qutayb s SApoorva Spencer, 11/14 M.D. /2015 Klor-August M10 01/10 Hx Tablets ER 10Meq 1 po bid Qutayb S. Eliazar Spencer, 06/06 M.D. /2013 Lisinopril 01/10 Hx Tablets 10mg 30tab [address], - M.D. 12/23 Plavix 01/10 Hx Tablets 75mg 1 PO qd Qu. [facility], 06/06 M.D. Lasix 01/10 Hx Tablets 80mg 30tab 1 by mouth s every day . [facility], 01/14 M.D. Aspirin 01/10 Hx Tablets 81mg 90tab [facility] Control Hx 1 po bid Unknown Pill /0000 - 06/06 Medroxyprogestero Hx Tablets 10mg 1 by mouth Unknown ne Acetate /0000 daily for - 10 days 11/13 then january repeat Tramadol HCL Hx Tablets 50mg 1-2 Unknown /0000 tablets - every 6 /10 hours needed Aspirin Hx Tablets DR 81mg 1 by mouth Unknown /0000 every day - 12/23 Furosemide Hx Tablets 80mg 1 by mouth Unknown /0000 every day - 09/29 Oxygen Hx 3L Unknown /0000 continuous - via NC 01/14 Iron 00/ Hx Unknown /0000 - 04/25 Cyclobenzaprine Hx [...] CPT Code Status Date Vaccine Lot # [id number] Given 06/09/2018 Influenza Virus Vaccine, Quadrivalent, Split, [id number] Preservative Free [id number] Given 08/05/2017 Tdap - Tetanus/Diptheria/Acellular Pertussis [id number] Given 12/24/2014 Fluvirin Im 3Yrs And Older [id number] Refused 08/05/2017 Pneumonia Vaccine Vital Signs Date Vital Result Comment 10/06/2018 10:50am Height 62.5 inches 5'2.50" Weight [...] H/L Range Note Protime W/ Inr 10/06/2018 [facility] Prothrombin Time 23.6 Inr 2.0 Protime W/ Inr 09/28/2018 [facility] Prothrombin Time 29.6 Inr 2.5 Protime W/ Inr 09/15/2018 [facility] Prothrombin Time 31.1 Inr 2.5 Protime W/ Inr 09/01/2018 [facility] Prothrombin Time 29.5 Inr 2.4 Protime W/ Inr 08/24/2018 [facility] Prothrombin Time 18.6 Inr 1.5 Protime W/ Inr 08/16/2018 [facility] Prothrombin Time 47.9 Inr 4.0 Protime W/ Inr 07/27/2018 Other Rendering Inr 2.5 Protime W/ Inr 07/19/2018 [facility] Prothrombin Time 31.2 Inr 2.6 Protime W/ Inr 07/11/2018 Other Rendering Inr 1.7 CBC Auto Diff 07/02/2018 [facility] White Blood 6.7 10^3/uL N 3.5-10.[address] [place] [address] [phone] Red Blood Count 4.32 10^6/uL N 4.00-5.40 [...] Red Blood Cells % 0.1 Inr/Protime 07/02/2018 [facility] Inr 1.73 High 0.77-1.[address] [place], [place] [id number] [phone] Wound 06/29/2018 [facility] Wound/Misc SEE RESULT 1 Culture/Sensi [address] [place] [address] m Stain [phone] Laboratory test 06/29/2018 [facility] MRSA/S. SEE RESULT [address] [place] [address] PCR [phone] CBC Auto Diff 06/29/2018 [facility] White Blood 6.6 10^3/uL N 3.5-10.[address] Count [place], [place] [address] [phone] Red Blood Count 4.87 10^6/uL N 4.00-5.40 [...] Cells % 0 Comp Metabolic Panel 06/29/2018 [facility] Sodium 140 mmol/L N 135-[address] [place] [address] [phone] Potassium 4.2 mmol/L N 3.5-5.0 Chloride 106 [...] Egfr 146.6 >60 3 Laboratory test 06/29/2018 [facility] C Reactive 39.37 mg/L High <8.[address] [place] [address] [phone] Lactic Acid 0.7 mmol/L N 0.5-2.0 4 Inr/Protime 06/29/2018 [facility] Inr 2.35 High 0.77-1.[address] [place] [address] [phone] Protime W/ Inr 06/27/2018 [facility] Prothrombin Time 33.9 Inr 2.8 Protime W/ Inr 06/20/2018 [facility] Prothrombin Time 24.9 Inr 2.1 Laboratory test 06/17/2018 [facility] Surgical Pathology SEE RESULT [address] [place] [address] [phone] Protime W/ Inr 06/15/2018 [facility] Prothrombin Time 21.6 Inr 1.8 CBC Auto Diff 06/06/2018 [facility] White Blood 7.0 10^3/uL N 3.5-10.[address] [place] [address] [phone] Red Blood Count 5.14 10^6/uL N 4.00-5.40 [...] Red Blood Cells % 0 Inr/Protime 06/06/2018 [facility] Inr 2.67 High 0.77-1.[address] [place] [address] [phone] Laboratory test 06/06/2018 [facility] Partial 51.0 High 26.0- 36.[address] [place] [address] Time PTT [phone] Basic Metabolic 06/06/2018 [facility] Sodium 141 mmol/L N 135- [address] [place] [address] [phone] Potassium 3.9 mmol/L N 3.5-5.0 Chloride 106 mmol/L N 101-111 Co2 Carbon Dioxide 28 mmol/L N 22-32 Anion Gap 7 mmol/L N 2-11 Glucose 115 mg/dL High 70-100 Blood Urea Nitrogen 15 mg/dL N 6-24 Creatinine 0.53 mg/dL N 0.51-0.95 BUN/Creatinine Ratio 28.3 High 8-20 Calcium 9.2 mg/dL N 8.6-10.3 Egfr Non- 118.5 >60 Egfr 143.4 >60 6 Protime W/ Inr 05/25/2018 [facility] Prothrombin Time 28.7 Inr 2.4 Inr/Protime 05/09/2018 [facility] Inr 2.37 High 0.77-1.[address] [place] [address] [phone] Inr/Protime 05/02/2018 [facility] Inr 1.63 High 0.77-1.[address] [place] [address] [phone] Urine Culture And 04/14/2018 [facility] Urine SEE RESULT [address] [place] [place] [address] [phone] Ua Routine 04/14/2018 [facility] Ua Specific 1.020 [place] Ua PH 5 Ua Color dark yellow Ua Appera cloudy Ua WBC + Ua Protein trace Ua Glucose norm Ua Ketones - Ua Bilirubin - Ua Urobilinogen norm Ua Nitrite - Ua Occult Blood 50 Protime W/ Inr 04/14/2018 [facility] Prothrombin Time 23.4 Inr 2.0 Protime W/ Inr 03/30/2018 [facility] Prothrombin Time 24.1 Inr 2.0 Protime W/ Inr 03/02/2018 [facility] Prothrombin Time 28.8 Inr 2.4 Protime W/ Inr 02/07/2018 [facility] Prothrombin Time 29.8 Inr 2.4 Protime W/ Inr 01/27/2018 [facility] Prothrombin Time 17.9 Inr 1.5 CBC Auto Diff 01/13/2018 [facility] White Blood 6.2 10^3/uL N 3.5-10.[address] [place] [address] [phone] Red Blood Count 5.36 10^6/uL N 4.0-5.4 [...] Red Blood Cells % 0 Inr/Protime 01/13/2018 [facility] Inr 1.78 High 0.77-1.[address] [place] [address] [phone] Protime W/ Inr 12/28/2017 [facility] Prothrombin Time 26.1 Inr 2.1 Protime W/ Inr 12/14/2017 [facility] Prothrombin Time 28.4 Inr 2.3 Protime W/ Inr 12/07/2017 [facility] Prothrombin Time 42.0 Inr 3.4 Istat BUN/Crea/Egfr/V 12/01/2017 [facility] Poc Bun 12 mg/dL N 9-[address] [place] [address] [phone] Poc Crea Mainct 0.6 mg/dL N 0.6-0.9 GFR Non- MCT 103.0 >60 GFR Mainct 132.5 >60 8 Protime W/ Inr 11/12/2017 [facility] Prothrombin Time 28.9 Inr 2.4 Inr/Protime 10/26/2017 [facility] Inr 2.03 High 0.77-1.[address] [place] [address] [phone] Protime W/ Inr 10/12/2017 [facility] Prothrombin Time 31.5 [phone] Inr 2.6 Protime W/ Inr 09/09/2017 [facility] Inr 2.97 High 0.77-1.[address] [place] [address] [phone] Laboratory test 09/01/2017 [facility] Lactic Acid 0.9 N 0.5- 2.0 [address] mmol/[place] [address] [phone] CBC Auto Diff 09/01/2017 [facility] White Blood 7.1 N 3.5- 10.[address] Count 10^3/[place] [address] [phone] Red Blood Count 5.13 10^6/uL N 4.0-5.4 [...] Red Blood Cells % 0.1 Inr/Protime 09/01/2017 [facility] Inr 2.51 High 0.77-1.[address] [place] [address] [phone] Laboratory test 09/01/2017 [facility] Partial 55.8 High 26.0- 36.[address] [place] [address] Time PTT [phone] Comp Metabolic 09/01/2017 [facility] Sodium 139 mmol/L N 133- 145 Panel [address] [place] [address] [phone] Potassium 3.8 mmol/L N 3.5-5.0 Chloride 103 [...] Egfr 137.8 >60 12 Laboratory test 09/01/2017 [facility] Magnesium 1.9 mg/dL N 1.9-2.7 finding [address] [place] [address] [phone] Lipase 20 U/L N 11.0-82.0 C Reactive Protein 23.31 mg/L High < 5.00 13 B-Type Natriuretic Peptide BNP 12 pg/mL 14 Inr/Protime 08/25/2017 [facility] Inr 2.10 High 0.77-1.02 15 [address] [place] [address] [phone] Protime W/ Inr 08/18/2017 Other Rendering Inr 1.7 Protime W/ Inr 08/11/2017 Other Rendering Prothrombin 1.8 Time CBC Auto Diff 08/11/2017 [facility] White Blood 6.2 N 3.5- 10.[address] Count 10^3/[place] [address] [phone] Red Blood Count 5.11 10^6/uL N 4.0-5.4 [...] Cells % 0.1 Comp Metabolic Panel 08/11/2017 [facility] Sodium 135 mmol/L N 133-[address] [place] [address] [phone] Potassium 3.9 mmol/L N 3.5-5.0 Chloride 99 [...] Egfr 140.6 >60 16 Laboratory test 08/11/2017 [facility] Creatine 45 U/L N 10- [address] Kinase(CK) [place] [address] [phone] C Reactive Protein 17.40 mg/L High < 5.00 17 Troponin-I (TnI) 0.00 ng/mL <0.04 B-Type Natriuretic Peptide BNP 12 pg/mL 18 Protime W/ Inr 08/11/2017 Other Rendering Inr 1.8 Protime W/ Inr 08/04/2017 Other Rendering Inr 1.8 Protime W/ Inr 07/28/2017 Other Rendering Inr 1.8 Urinalysis Profile 07/22/2017 [facility] Urine Color Nataliia N [address] [place] [address] [phone] Urine Appearance Cloudy N Urine Specific [place] 1.017 N 1.010-1.030 Urine pH 6.0 N [...] Present Abnormal Absent Urine Culture And 07/22/2017 [facility] Urine Culture SEE RESULT [address] [place] [address] [phone] CBC Auto Diff 07/22/2017 [facility] White Blood 8.5 10^3/uL N 3.5-[address] Count 0.8 [place] [address] [phone] Red Blood Count 4.84 10^6/uL N 4.0-5.4 [...] Cells % 0 N Laboratory test 07/22/2017 [facility] B-Type Natriuretic 26 pg/ mL N [address] [place] [address] [phone] Lactic Acid 1.2 mmol/L N 0.5-2.0 21 Comp Metabolic Panel 07/22/2017 [facility] Sodium 138 mmol/L N 133-[address] [place] [address] [phone] Potassium 3.6 mmol/L N 3.5-5.0 Chloride 102 [...] 156.3 N >60 22 Laboratory test 07/22/2017 [facility] Magnesium 1.5 mg/dL Low 1.9-2.[address] [place] [address] [phone] Lipase 29 U/L N 11.0-82.0 C Reactive Protein 44.69 mg/L High < 5.00 23 Troponin-I (TnI) 0.00 ng/mL N <0.04 TSH (Thyroid Stim Horm) 1.11 mcIU/mL N 0.34-5.60 Inr/Protime 07/22/2017 [facility] Inr 1.74 High 0.89-1.[address] [place] [address] [phone] Laboratory test 07/22/2017 [facility] Partial 40.3 High 26.0- 36.[address] [place] [address] Time PTT [phone] Urinalysis 06/30/2017 [facility] Urine Color Nataliia N Profile [address] [place] [address] [phone] Urine Appearance Turbid N Urine Specific [place] 1.018 N 1.010-1.030 Urine pH 5.0 N [...] Present Abnormal Absent Urine Culture And 06/30/2017 [facility] Urine Culture SEE RESULT [address] [place] [address] [phone] Laboratory test 06/06/2017 [facility] C Reactive 55.60 mg/L High < [address] Protein 5.00 [place] [address] [phone] Erythrocyte Sed Rate 36 mm/Hr High 0-30 Comp Metabolic Panel 06/06/2017 [facility] Sodium 136 mmol/L N 133-[address] [place] [address] [phone] Potassium 4.0 mmol/L N 3.5-5.0 Chloride 102 [...] 101.1 N >60 Egfr 130.0 N >60 26 CBC Auto Diff 06/06/2017 [facility] White Blood 7.9 10^3/uL N 3.5-10.[address] [place] [address] [phone] Red Blood Count 4.94 10^6/uL N 4.0-5.4 [...] Nucleated Red Blood Cells % 0.1 N Urinalysis Profile 06/01/2017 [facility] Urine Color Yellow [place] [address] [place] [address] [phone] Urine Appearance Cloudy N Urine Specific [place] 1.008 Low 1.010-1.030 Urine pH 6.0 N [...] Epithelial Cell Present Abnormal Absent Inr/Protime 06/01/2017 [facility] Inr 1.43 High 0.89-1.[address] [place] [address] [phone] Urine Culture And 06/01/2017 [facility] Urine SEE RESULT [address] [place] [address] [phone] Inr/Protime 05/25/2017 [facility] Inr 1.26 High 0.89-1.[address] [place] [address] [phone] Inr/Protime 05/18/2017 [facility] Inr 1.62 High 0.89-1.[address] [place] [address] [phone] Comp Metabolic 05/18/2017 [facility] Sodium 138 mmol/L N 133- 145 Panel [address] [place] [address] [phone] Potassium 3.9 mmol/L N 3.5-5.0 Chloride 103 [...] 159.9 N >60 29 Laboratory test 05/18/2017 [facility] Lactic Acid 1.1 mmol/L N 0.5-2.0 [address] [place] [address] [phone] CBC Auto Diff 05/18/2017 [facility] White Blood 7.6 10^3/uL N 3.5-10.[address] [place] [address] [phone] Red Blood Count 4.64 10^6/uL N 4.0-5.4 [...] Blood Cells % 0.1 N GC/Chlamydia 05/15/2017 [facility] Chlamydia Negative N Negative Amplified Rna [address] [place] [address] [phone] Neisseria gonorrhoeae (GC) Rna Negative N Negative Inr/Protime 05/11/2017 [facility] Inr 3.29 High 0.89-1.[address] [place] [address] [phone] Inr/Protime 05/04/2017 [facility] Inr 2.81 High 0.89-1.11 [place] [address] [phone] Inr/Protime 04/27/2017 [facility] Inr 1.55 High 0.89-1.11 [place] [address] [phone] Inr/Protime 04/22/2017 [facility] Inr 4.12 High 0.89-1.11 [place] [address] [phone] Inr/Protime 04/08/2017 [facility] Inr 2.31 High 0.89-1.[address] [place] [address] [phone] Protime W/ Inr 03/31/2017 [facility] Prothrombin Time 35.7 Inr 3.0 Inr/Protime 03/25/2017 [facility] Inr 1.79 High 0.89-1.[address] [place] [address] [phone] Inr/Protime 03/18/2017 [facility] Inr 2.72 High 0.89-1.11 [place] [address] [phone] Inr/Protime 03/16/2017 [facility] Inr 3.71 High 0.89-1.11 DR[address] [place], [place] [address]35 [phone] CBC Auto Diff 03/09/2017 [facility] White Blood 6.8 N 3.5- 10.[address] Count 10^3/[place] [address] [phone] Red Blood Count 4.71 10^6/uL N 4.0-5.4 [...] Nucleated Red Blood Cells % 0.1 N Laboratory test 03/09/2017 [facility] Magnesium 1.8 mg/dL Low 1.9-2.7 finding [address] [place] [address] [phone] Troponin-I (TnI) 0.01 ng/mL N <0.04 B-Type Natriuretic Peptide BNP 34 pg/mL N 31 Comp Metabolic Panel 03/09/2017 [facility] Sodium 137 mmol/L N 133-145 [address] [place] [address] [phone] Potassium 4.2 mmol/L N 3.5-5.0 Chloride 104 [...] 111.6 N >60 Egfr 143.5 N >60 32 Laboratory 03/09/2017 [facility] Lactic Acid 0.9 N 0.5-2.0 33 test finding [address] mmol/[place] [address] [phone] Inr/Protime 03/09/2017 [facility] Inr 1.32 High 0.89-1.[address] [place] [address] [phone] Inr/Protime 03/02/2017 [facility] Inr 2.53 High 0.89-1.[address] [place] [address] [phone] Protime W/ Inr 02/23/2017 Other Rendering Inr 3.1 Protime W/ Inr 02/16/2017 Other Rendering Inr 2.7 Protime W/ Inr 02/09/2017 Other Rendering Inr 3.0 Protime W/ Inr 02/02/2017 Other Rendering Inr 2.1 Protime W/ Inr 01/28/2017 [facility] Prothrombin 29.3 Time Inr 2.4 Protime W/ Inr 01/26/2017 Other Rendering Inr 3.1 Protime W/ Inr 01/19/2017 Other Rendering Inr 3.0 CBC Auto Diff 01/19/2017 [facility] White Blood 8.0 10^3/uL N 3.5-10.[address] [place] [address] [phone] Red Blood Count 4.01 10^6/uL N 4.0-5.4 [...] Blood Cells % 0.1 N Xray 11/16/2016 [facility] Hip Left 2 <pending> [address] [place] [address] [place] [address] [phone] Laboratory test 07/06/2008 [facility] TSH 2.94 MIU/ML 0.34-[address] .60 [place], [place] [address] [phone] CBC With 07/06/2008 [facility] White Blood 4.2 CUMM Low 4.8- 10 Electronic Diff [address] Count .8 [place] [address] [phone] Red Cell Count 4.20 CUMM Low 4.6-6.2 [...] Eosinophils 0.2 0-0.6 Abs Basophils 0 0-0.2 Comp Metabolic Panel 07/06/2008 [facility] Sodium 135 mmol/L 135-[address] [place] [address] [phone] Potassium 4.1 mmol/L 3.5-5.0 Chloride 101 mmol/L 101-111 Co2 (Carbon Dioxide) 28.0 mmol/L 22-32 Anion Gap 6.0 mmol/L 2-11 36 Glucose 97 mg/dL 70-100 37 BUN 19 mg/dL 6-24 Creatinine 1.3 mg/dL 0.5-1.4 One Over Creatinine 0.76 BUN/Creatinine Ratio 14.6 8-20 Calcium 8.8 mg/dL 8.1-9.9 38 Total Protein 5.9 GM/DL Low 6.2-8.1 Albumin 3.7 GM/DL 3.6-5.4 Globulin 2.2 GM/DL 2-4 Albumin/Globulin Ratio 1.7 1-3 Bilirubin Total 0.8 mg/dL 0.4-1.5 Alkaline Phosphatase 89 U/L 39-117 Alt (SGPT) 25 U/L 17-63 Ast (Sgot) 21 U/L 12-42 Lipid Profile 07/06/2008 [facility] Triglyceride 1052 High 40- 200 (Trig/Chol/HDL) [address] mg/[place] [address] [phone] Cholesterol 310 mg/dL High Less Than 200 39 Cholesterol/HDL Ratio 10.33 AVERAGE High 1-4.97 Low Density Lipoprotein (SEE NOTE) mg/dL Less Than 100 40 High Density Lipoprotein 30 mg/dL Low 40-60 41 CBC With 12/29/2007 [facility] White Blood 7.2 CUMM 4.8-10.8 Electronic Diff [address] [place] [address] [phone] Abs Basophils 0 0-0.2 Abs Eosinophils 0.4 [...] % 10.5-15 1 SEE RESULT BELOW Name: BETTINA JAIN : [address]: Iam Bruce MD Acct: [id number] Unit: [id number] AGE: 58 Location: ED Re06/29/18 SEX: F Status: REG ER SPEC: [id number] SAMMIE: 06/29/[address]: Shahbaz IRIZARRY REQ: [id number] RECD: 06/29/18 STATUS: RES OTHR DR: Serena Bruce MD _ SOURCE: ABDOMEN SPDESC: ORDERED: MRSA/SA SSTI, Culture Stain COMMENTS: Procedure Result Reported Site MRSA/S. aureus SSTI PCR PENDING Wound/Misc Gram Stain Preliminary 06/29/18- 5906 ML 4+ Neutrophils 2+ Gram Positive Cocci in Clusters, resembling Staph Wound/Misc Culture PENDING * ML - Main Lab . END OF REPORT DEPARTMENT OF PATHOLOGY, [address] [place] [address] David Romero M.D. Director [facility] # [id number] 2 SEE RESULT BELOW Name: BETTINA JAIN : [address]: Ngozi Lloyd MD Acct: [id number] Unit: [id number] AGE: 58 Location: MED 407-01 Re06/29/18 Dis: 06/30/18 SEX: F Status: DIS Nancy SPEC: [id number] SAMMIE: 06/29/[address]: Shahbaz IRIZARRY REQ: [id number] RECD: 06/29/18 STATUS: MARIE JESSICA DR: Serena Bruce MD _ SOURCE: [facility]: ORDERED: MRSA/SA SSTI, Culture Stain COMMENTS: Verbal to [id number] by [id number] at 1826 on 06/29/18. Results read back [...] CONTINUED ON NEXT PAGE DEPARTMENT OF PATHOLOGY, [address] [place] [address] David Romero M.D. Director [facility] # [id number] Patient: BETTINA JAIN [id number] (Continued) Specimen: [id number] Collected: 06/29/18 Received: 06/29/18 (Continued) Procedure Result Reported Site Wound/Misc Culture Final (continued) 07/01/18- 6 1. MRSA (continued) M.I.C. RX --------- ------ Doxycycline - Deduced S * Minocycline - Deduced S Trimethoprim/Sulfamethoxazole <=10 S Vancomycin 1 S Imipenem-Deduced R * Ampicillin/Sulbactam-Deduced R Cefazolin-Deduced R * These antibiotics are not available in the [facility] Formulary Contact the Microbiology Department for any additional antibiotic reporting. * ML - Main Lab . END OF REPORT DEPARTMENT OF PATHOLOGY, [address] [place] [address] David Romero M.D. Director [facility] # [id number] 3 Because ethnic data is not always [...] 5 Kidney failure <15 (or dialysis) 4 FLS Severe Sepsis and Septic Shock Management Bundle Measure requires all lactic acids initially measuring >2.0 mmol/L be repeated. 5 SEE RESULT BELOW Name: BETTINA JAIN : [address]: Hernan Campa MD Acct: [id number] Unit: [id number] AGE: 58 Location: WOUND Re06/17/18 SEX: F Status: REG REF SPEC: [id number] SAMMIE: 06/17/18-[address] [place]: Hernan Campa MD REQ: [id number] RECD: 06/17/18-1223 STATUS: JANINE JESSICA DR: Serena [...] 1459 END OF REPORT DEPARTMENT OF PATHOLOGY, [address] [place] [address] David Romero M.D. Director [facility] # [id number] 6 Because ethnic data is not always [...] [address]: Serena Murillo MD Acct: [id number] Unit: [id number] AGE: 58 Location: [facility] Re04/14/18 SEX: F Status: REG REF SPEC: [id number] SAMMIE: 04/14/18-[address] [place]: Serena Murillo MD REQ: [id number] RECD: 04/14/18-1818 STATUS: COMP _ SOURCE: URINE SPDESC: ORDERED: Urine Culture COMMENTS: [id number] Urine Source: Random Procedure Result Reported Site Urine Culture Final 04/16/18- 0806 ML No growth of clinically significant organisms * ML - Main Lab . END OF REPORT DEPARTMENT OF PATHOLOGY, [address] [place] [address] David Romero M.D. Director [facility] # [id number] 8 Because ethnic data is not always [...] in INR reference range effective 17. 10 [facility] Severe Sepsis and Septic Shock Management Bundle [...] [address]: Tamir Germain MD Acct: [id number] Unit: [id number] AGE: 57 Location: ED Re07/22/17 SEX: F Status: DEP ER SPEC: [id number] SAMMIE: 07/22/17-[address]: Tamir Germain MD REQ: [id number] RECD: 07/22/17-125 STATUS: MARIE JESSICA DR: Serena Murillo MD _ SOURCE: URINE SPDESC: ORDERED: Urine Culture Procedure Result Reported Site Urine Culture Final 07/23/17- 1159 ML Mixed melanie; possible contamination. Suggest resubmission. * ML - MAIN LAB ([facility]) . END OF REPORT * ML=Testing performed at Main Lab DEPARTMENT OF PATHOLOGY, [address] [place] [address] David Romero M.D. Director [facility] # [id number] 20 >100 to <200 pg/mL: likely compensated congestive heart failure (CHF) 200 to 400 pg/mL: likely moderate CHF >400 pg/mL: likely moderate to severe CHF 21 [facility] Severe Sepsis and Septic Shock Management Bundle [...] [address]: Ngozi Lloyd MD Acct: [id number] Unit: [id number] AGE: 57 Location: [facility] Re06/30/17 SEX: F Status: REG REF SPEC: [id number] SAMMIE: 06/30/[address]: Ngozi Lloyd MD REQ: [id number] RECD: 07/01/17 STATUS: MARIE JESSICA DR: Madelin Murillo MD _ SOURCE: URINE [facility]: ORDERED: Urine Culture QUERIES: Urine Source: Random Procedure Result Reported Site Urine Culture Final 07/03/17- 0825 ML Organism 1 ESCHERICHIA COLI [place] Count 50-75,000 (Many) CFU/ML Organism 2 NORMAL MELANIE [place] Count 25-50,000 (Moderate) CFU/ML 1. ESCHERICHIA COLI [...] antibiotic reporting. * ML - MAIN LAB ([facility]) . END OF REPORT * ML=Testing performed at Main Lab DEPARTMENT OF PATHOLOGY, [address] [place] [address] David Romero M.D. Director [facility] # [id number] 25 Acute inflammation: >10.00 26 Because ethnic data is not always readily [...] 15-29 5 Kidney failure <15 (or dialysis) 27 SEE RESULT BELOW Name: BETTINA JAIN : [address]: Serena Murillo MD Acct: [id number] Unit: [id number] AGE: 57 Location: [facility] Re06/01/17 SEX: F Status: REG REF SPEC: [id number] SAMMIE: 06/01/17-[address]: Serena Murillo MD REQ: [id number] RECD: 06/01/17-130 STATUS: COMP _ SOURCE: URINE SPDESC: ORDERED: Urine Culture Procedure Result Reported Site Urine Culture Final 06/02/17- 1552 ML Organism 1 CORYNEBACTERIUM STRIATUM [place] Count 50-75,000 (Many) CFU/ML * ML - MAIN LAB ([facility]) . END OF REPORT * ML=Testing performed at Main Lab DEPARTMENT OF PATHOLOGY, [address] [place] [address] David Romero M.D. Director [facility] # [id number] 28 [id number] 29 Because ethnic data is not always [...] 5 Kidney failure <15 (or dialysis) 30 [facility] Severe Sepsis and Septic Shock Management Bundle Measure requires all lactic acids initially measuring >2.0 mmol/L be repeated. 31 >100 to <200 pg/mL: likely compensated congestive heart failure (CHF) 200 to 400 pg/mL: likely moderate CHF >400 pg/mL: likely moderate to severe CHF 32 Because ethnic data is not always readily [...] 15-29 5 Kidney failure <15 (or dialysis) 33 [facility] Severe Sepsis and Septic Shock Management Bundle Measure requires all lactic acids initially measuring >2.0 mmol/L be repeated. 34 [id number] 35 Consistent with previous results on 01/16/17. 36 Anion gap measurement may be of limited value in the presence of any alkalosis, especially in a combined acid base disorder. . 37 Note change in reference range as of 05/10/08. The change was based on recommendations from the [place] [employer]. 38 Please note change in reference range effective 08 . 39 CHOLESTEROL INTERPRETATION: Desirable: Less than 200 MG/DL Borderline-High Risk: 200-239 MG/DL High-Risk: 240 MG/DL and over 40 UNABLE TO CALCULATE LDL TRIGLYCERIDE IS > 400 41 HDL INTERPRETATION: Undesirable: High Risk: Less than 40 MG/DL Desirable: Low Risk: Greater than 60 MG/DL Procedures Date Code Description Status 07/26/2018 45681 Inject/Drain Joint/Bursa Major W/O US Completed 06/17/2018 95782 Biopsy Skin Lesion Single Completed 05/09/2018 40053 Destruction Of Benign Lesions Any Method 1-14 lesions Completed 04/19/2018 07655 EKG Tracing & Interpretation Completed 08/01/2017 91535 EKG, Interpretation Only Completed 06/14/2017 36192 Use Of Operating Microscope Completed 06/14/2017 39543 Use Of Operating Microscope Completed 06/14/2017 44177 Collier/Facet/Foraminotomy;Vertebral Segment; Lumbar Completed 06/14/2017 12662 [place]lier/Facet/Foraminotomy;Vertebral Segment; Lumbar Completed 03/30/2017 73253 EKG Tracing & Interpretation Completed 03/10/2017 40058 Treadmill Interp/Report Only Completed 03/10/2017 71303 Stress Test Supervsn W/Out I/R Completed 01/04/2017 34162 EKG, Interpretation Only Completed 12/28/2016 45995 Removal Skin Tags Up To 15 Completed 12/20/2016 09492 ECHO Transthorasic Realtime 2D W Doppler & Color Flow Hosp Completed 12/20/2016 01337 EKG, Interpretation Only Completed 11/16/2016 25900 Inject/Drain Joint/Bursa Major W/O US Completed 09/30/2016 21621 EKG Tracing & Interpretation Completed 02/06/2016 11510 Left Heart Cath. Incl S/I Coronaries, Angio S/I V Gram If Completed Done 02/04/2016 91016 Treadmill Interp/Report Only Completed 02/04/2016 42207 Stress Test Supervsn W/Out I/R Completed 11/26/2015 36848 ECHO Transthoracic, Real-Time 2D With Doppler And Color Completed Flow 11/14/2015 67338 EKG Tracing & Interpretation Completed 07/18/2014 98169 Treadmill Interp/Report Only Completed 07/18/2014 33323 Stress Test Supervsn W/Out I/R Completed 06/29/2014 05623 ECHO Transthoracic, Real-Time 2D With Doppler And Color Completed Flow 06/07/2014 67642 EKG Tracing & Interpretation Completed 02/07/2009 56771 EKG Tracing & Interpretation Completed 11/12/2008 03476 Color Flow Doppler/Interp & Reprt Completed 11/12/2008 40359 Pulse Wave/Continuous-Interp.RPT Completed 11/12/2008 13064 Echocardiogram Completed 11/11/2008 83153 Treadmill Interp/Report Only Completed 11/11/2008 53262 Stress Test Supervsn W/Out I/R Completed 11/10/2008 25123 EKG, Interpretation Only Completed 01/27/2008 59165 Echocardiogram Completed 01/27/2008 00994 Pulse Doppler & Continuous Wave Completed 01/27/2008 21910 Pulse Doppler & Continuous Wave Completed 01/27/2008 69385 Color Doppler Completed 01/27/2008 35111 Color Doppler Completed 09/22/2007 22273 EKG Tracing & Interpretation Completed 09/22/2007 08544 EKG Tracing & Interpretation Completed 05/16/2007 03913 EKG Tracing & Interpretation Completed 05/05/2007 84281 Echocardiogram Completed 05/05/2007 17292 Echocardiogram Completed 05/05/2007 69138 Pulse Doppler & Continuous Wave Completed 05/05/2007 58522 Pulse Doppler & Continuous Wave Completed 05/05/2007 78172 Color Doppler Completed 03/08/2007 42488 EKG, Interpretation Only Completed 03/08/2007 02706 EKG, Interpretation Only Completed 01/10/2007 25342 EKG Tracing & Interpretation Completed 12/25/2006 92246 EKG, Interpretation Only Completed 12/24/2006 21987 Left Heart Catheterization Completed 12/24/2006 00249 Left Heart Catheterization Completed 12/24/2006 50292 Inj Proc LFT Vent/LFT Atrl Angio Completed 12/24/2006 91817 Coronary Angiography Completed 12/24/2006 32816 Coronary Angiography Completed 12/24/2006 76653 S/I/R Inj Proc Vent And Or Atrial Completed 12/24/2006 27927 Selective Coronary Angioplasty Completed 12/24/2006 11405 Selective Coronary Angioplasty Completed 12/23/2006 36589 Color Flow Doppler/Interp & Reprt Completed 12/23/2006 20100 Pulse Wave/Continuous-Interp.RPT Completed 12/23/2006 31729 Pulse Wave/Continuous-Interp.RPT Completed 12/23/2006 10759 Echocardiogram Completed 12/23/2006 37161 EKG, Interpretation Only Completed 12/23/2006 50645 EKG, Interpretation Only Completed 12/21/2006 42673 Stress ECHO Interpretation/Report Hospital Completed 12/21/2006 89206 Stress ECHO Interpretation/Report Hospital Completed 12/21/2006 04690 Treadmill Interp/Report Only Completed 12/21/2006 45838 Stress Test Supervsn W/Out I/R Completed 12/21/2006 13285 Stress Test Supervsn W/Out I/R Completed Encounters Type Date Location Provider Dx Diagnosis Office Visit 09/06/2018 Pulmonology And Sleep Cathy Hubbard MD R06.83 Snoring 1:45p Services Of [facility] R53.83 Other fatigue E66.01 Morbid (severe) obesity due to excess calories Office Visit 08/24/2018 12:10p [facility] Internal Serena Z79.01 group home ( current) Laura Murillo M.D. use of [place] anticoagulants I26.99 Other pulmonary embolism without acute cor pulmonale B86 Scabies Office Visit 08/16/2018 1:40p [facility] Internal Serena Z79.01 group home ( current) Laura Murillo M.D. use of [place] anticoagulants I26.99 Other pulmonary embolism without acute cor pulmonale R21 Rash and other nonspecific skin eruption Office Visit 07/26/2018 10:30a Orthopedic Gloria Morales, M25.511 Pain in right Services Of MD tiera Arceo M75.41 Impingement syndrome of right shoulder Office Visit 07/19/2018 9:50a [facility] Verónica Lyons Z79.01 group home ( current) Laura Murillo M.D. use of [place] anticoagulants I27.82 Chronic pulmonary embolism B95.62 Methicillin resis staph infct causing diseases classd elsr L02.211 Cutaneous abscess of abdominal wall E04.1 Nontoxic single thyroid nodule Z12.31 Encntr screen mammogram for malignant neoplasm of breast M25.511 Pain in right shoulder Office Visit 07/15/2018 9:00a Wound Care Hernan Hunt79.3 Panniculitis, Center [facility] MD Katheryn, unspecified FACS E66.01 Morbid (severe) obesity due to excess calories Office Visit 06/30/2018 [facility] Ngozi Gabino, B95.62 Methicillin resis 12:03p Assoc,pc Antonio staph infct Hospitalists causing diseases classd elsr L03.311 Cellulitis of abdominal wall M79.3 Panniculitis, unspecified Office Visit 06/30/2018 7:00a Surgical Hernan Hunt79.3 Panniculitis, Associates [facility] Joel Campa MD, unspecified FACS B95.62 Methicillin resis staph infct causing diseases classd elswhr E66.01 Morbid (severe) obesity due to excess calories Office Visit 06/29/2018 [facility] L03.311 Cellulitis of 12:02p Assoc,pc EDIE Mobley abdominal wall Hospitalists M79.3 Panniculitis, unspecified Office Visit 06/24/2018 11:15a Wound Care Hernan Ferreira.3 Panniculitis, Center [facility] MD Katheryn, unspecified FACS E66.01 Morbid (severe) obesity due to excess calories Office Visit 06/17/2018 9:30a Wound Care Hernan Ferreira.3 Panniculitis, Center [facility] MD Katheryn, unspecified FACS Office Visit 06/09/2018 11:50a [facility] Internal Serena L02.211 Cutaneous abscess Medicine - Kevin Murillo. of abdominal wall [place] Z23 Encounter for immunization Z79.01 long term care pharmacist (current) use of anticoagulants Office Visit 05/25/2018 9:50a [facility] Internal Serena Z01.818 Encounter for other Medicine - Antonio Murillo preprocedural [place] examination M24.574 Contracture, right foot R94.31 Abnormal electrocardiogram [ECG] [EKG] Z86.711 Personal history of pulmonary embolism Z79.01 long term care pharmacist (current) use of anticoagulants K21.9 Gastro-esophageal reflux disease without esophagitis G47.33 Obstructive sleep apnea (adult) (pediatric) B37.2 Candidiasis of skin and nail M17.9 Osteoarthritis of knee, unspecified I10 Essential (primary) hypertension Z68.44 Body mass index (BMI) 60.0-69.9, adult Office Visit 05/24/2018 Orthopedic Ken M24.574 Contracture, right 10:45a Services Of Antonio Hodges foot C.M.A. Office Visit 05/09/2018 [facility] Dermatology Keshawn Marquez, L82.1 Other seborrheic 10:20a keratosis D18.01 Hemangioma of skin and subcutaneous tissue Z78.9 Other specified health status L53.8 Other specified erythematous conditions R58 Hemorrhage, not elsewhere classified R20.8 Other disturbances of skin sensation Office Visit 04/28/2018 10:30a Orthopedic Ken M79.672 Pain in left foot Services Of Antonio Hodges C.M.A. Office Visit 04/19/2018 10:40a Nai Akers I73.9 Peripheral Cardiology Of [facility], vascular disease, Joel Alvarez unspecified R94.31 Abnormal electrocardiogram [ECG] [EKG] E66.9 Obesity, unspecified G47.33 Obstructive sleep apnea (adult) (pediatric) I36.1 Nonrheumatic tricuspid (valve) insufficiency I27.20 Pulmonary hypertension, unspecified I37.1 Nonrheumatic pulmonary valve insufficiency Office Visit 04/14/2018 10:50a [facility] Internal Serena Chidi, M54.2 Cervicalgia Medicine Antonio Bolaños R30.0 Dysuria G57.91 Unspecified mononeuropathy of right lower limb L91.8 Other hypertrophic disorders of the skin Z79.01 long term care pharmacist (current) use of anticoagulants Z86.711 Personal history of pulmonary embolism Office Visit 03/24/2018 Orthopedic Ken G57.91 Unspecified 10:45a Services Of Antonio Hodges mononeuropathy of C.M.A. right lower limb Office Visit 02/03/2018 Orthopedic Ken G57.91 Unspecified 11:00a Services Of [place], M.D. mononeuropathy of C.M.A. right lower limb G57.92 Unspecified mononeuropathy of left lower limb M48.00 Spinal stenosis, site unspecified M21.371 Foot drop, right foot M21.372 Foot drop, left foot Office Visit 01/04/2018 4:00p [facility] Internal Raffaele Quinteros I73.9 Peripheral Medicine Eliazar Hansen M.D. vascular disease, [place] unspecified N92.0 Excessive and frequent menstruation with regular cycle I10 Essential (primary) hypertension Office Visit 12/08/2017 Neurosurgery Evan M51.36 Other 1:40p Services Of Joel Peralta M.D. intervertebral disc degeneration, lumbar region M79.604 Pain in right leg Office Visit 11/18/2017 10:30a [facility] Internal Serena J06.9 Acute upper Laura Murillo M.D. respiratory [place] infection, unspecified B37.2 Candidiasis of skin and nail Office Visit 10/15/2017 Neurosurgery Ashley High, M54.16 Radiculopathy, 11:00a Services Of [facility] PA-C lumbar region Office Visit 10/12/2017 [facility] Internal Serena M79.671 Pain in right foot 10:50a Laura Murillo M.D. [place] L60.3 Nail dystrophy E04.1 Nontoxic single thyroid nodule Z79.01 group home (current) use of anticoagulants Office Visit 09/02/2017 10:11a [facility] Michele R19.7 Diarrhea, Assoc,diana Anne M.D. unspecified Hospitalists K66.8 Other specified disorders of peritoneum Z86.711 Personal history of pulmonary embolism I10 Essential (primary) hypertension Office Visit 09/01/2017 [facility] Malgorzata Polanco R19.7 Diarrhea, 10:10a Assoc,diana Vargas NP unspecified Hospitalists K66.8 Other specified disorders of peritoneum I10 Essential (primary) hypertension Z86.711 Personal history of pulmonary embolism Office Visit 09/01/2017 7:00a Surgical Hernan Jauregui K66.8 Other specified Associates Of [facility] MD Katheryn, disorders of FACS peritoneum R19.7 Diarrhea, unspecified Office Visit 08/19/2017 12:10p [facility] Internal Serena J40 Bronchitis, not Laura Murillo M.D. specified as acute [place] or chronic Office Visit 08/05/2017 1:40p [facility] Internal Serena R91.8 Other nonspecific Medicine - Antonio Murillo abnormal finding [place] of lung field E66.01 Morbid (severe) obesity due to excess calories Z11.59 Encounter for screening for other viral diseases N92.0 Excessive and frequent menstruation with regular cycle Z23 Encounter for immunization Z12.31 Encntr screen mammogram for malignant neoplasm of breast G47.33 Obstructive sleep apnea (adult) (pediatric) E04.1 Nontoxic single thyroid nodule Office Visit 08/01/2017 2:46p [facility] Tamir J18.9 Pneumonia, Assoc,pc [place], [place] unspecified Hospitalists organism E66.9 Obesity, unspecified I10 Essential (primary) hypertension Z86.711 Personal history of pulmonary embolism Office Visit 07/31/2017 2:45p [facility] Tamir J18.9 Pneumonia, Assoc,pc [place], [place] unspecified Hospitalists organism E66.9 Obesity, unspecified I10 Essential (primary) hypertension Z86.711 Personal history of pulmonary embolism Office Visit 07/30/2017 [facility] Sarbjit J18.9 Pneumonia, 2:44p Assoc,diana Aden, N.P. unspecified Hospitalists organism E66.9 Obesity, unspecified Z86.711 Personal history of pulmonary embolism I10 Essential (primary) hypertension Office Visit 07/30/2017 10:15a Neurosurgery Ashley Strattontz, Z48.89 Encounter for Services Of [facility] SHIVA other specified surgical aftercare M54.5 Low back pain Z86.711 Personal history of pulmonary embolism R07.9 Chest pain, unspecified R06.00 Dyspnea, unspecified [facility].9 Acute upper Visit 9:15a [employer] respiratory infection, unspecified [facility], K52.9 Noninfective Visit 9:15a [employer] gastroenteritis and colitis, unspecified Office 06/17/2017 [facility] Malgorzata Polanco M54.9 Dorsalgia, Visit 3:52p Assoc,pc Sam [employer] unspecified Hospitalists E66.01 Morbid (severe) obesity due to excess calories M54.17 Radiculopathy, lumbosacral region Z86.711 Personal history of pulmonary embolism Office Visit 06/16/2017 [facility] M54.9 Dorsalgia, 3:51p Assdiana jones, [employer] unspecified Hospitalists M54.17 Radiculopathy, lumbosacral region E66.01 Morbid (severe) obesity due to excess calories Z86.711 Personal history of pulmonary embolism Office Visit 06/15/2017 [facility] M54.9 Dorsalgia, 3:50p Assocpc Sam, [employer] unspecified Hospitalists M54.17 Radiculopathy, lumbosacral region E66.01 Morbid (severe) obesity due to excess calories Z86.711 Personal history of pulmonary embolism Office Visit 06/14/2017 [facility] M54.9 Dorsalgia, 3:50p diana Silva, [employer] unspecified Hospitalists M54.17 Radiculopathy, lumbosacral region E66.01 Morbid (severe) obesity due to excess calories Z86.711 Personal history of pulmonary embolism Office Visit 06/13/2017 [facility] M54.9 Dorsalgia, 3:49p Assdiana jones, NASRA unspecified Hospitalists M54.17 Radiculopathy, lumbosacral region E66.01 Morbid (severe) obesity due to excess calories Z86.711 Personal history of pulmonary embolism Office Visit 06/12/2017 12:46p [facility] Amy Maynard4.9 Dorsalgia, Assocdiana MD unspecified Hospitalists M54.17 Radiculopathy, lumbosacral region E66.01 Morbid (severe) obesity due to excess calories Z86.711 Personal history of pulmonary embolism Office Visit 06/11/2017 12:45p [facility] Amy Maynard4.9 Dorsalgia, Assocdiana MD unspecified Hospitalists M54.17 Radiculopathy, lumbosacral region E66.01 Morbid (severe) obesity due to excess calories Z86.711 Personal history of pulmonary embolism Office Visit 06/10/2017 12:45p [facility] Amy Maynard4.9 Dorsalgia, Assocdiana MD unspecified Hospitalists M54.17 Radiculopathy, lumbosacral region E66.01 Morbid (severe) obesity due to excess calories Z86.711 Personal history of pulmonary embolism Office Visit 06/09/2017 12:44p [facility] Tamir M54.9 Dorsalgia, Assoc,diana Adams, EDIE unspecified Hospitalists M54.17 Radiculopathy, lumbosacral region E66.01 Morbid (severe) obesity due to excess calories Z86.711 Personal history of pulmonary embolism Office Visit 06/09/2017 Neurosurgery Evan M51.26 Other 7:00a Services Of Joel Peralta M.D. intervertebral disc displacement, lumbar region Office Visit 06/08/2017 [facility] Tamir M54.9 Dorsalgia, 12:44p Assoc,pc [place], [place] unspecified Hospitalists M54.17 Radiculopathy, lumbosacral region E66.01 Morbid (severe) obesity due to excess calories Z86.711 Personal history of pulmonary embolism Office Visit 06/06/2017 12:43p [facility] Shante M54.9 Dorsalgia, Assoc,diana Gonzalez M.D. unspecified Hospitalists M54.17 Radiculopathy, lumbosacral region E66.01 Morbid (severe) obesity due to excess calories Office Visit 06/02/2017 10:15a Orthopedic Services Sharyn Valenzuela M54.5 Low back pain Of C.M.A. MApoorvaDApoorva M54.16 Radiculopathy, lumbar region Office Visit 04/26/2017 10:00a Orthopedic Sharyn Valenzuela E66.01 Morbid ( severe) Services Of C.M.A. MApoorvaDApoorva obesity due to excess calories M25.562 Pain in left knee M25.552 Pain in left hip M25.551 Pain in right hip M16.11 Unilateral primary osteoarthritis, right hip M16.12 Unilateral primary osteoarthritis, left hip M17.12 Unilateral primary osteoarthritis, left knee M54.5 Low back pain Office Visit 03/31/2017 11:50a [facility] Internal Serena Z86.711 Personal history Medicine - Antonio Murillo of pulmonary [place] embolism Z79.01 long term care pharmacist (current) use of anticoagulants G47.33 Obstructive sleep apnea (adult) (pediatric) M25.551 Pain in right hip E66.01 Morbid (severe) obesity due to excess calories Office Visit 03/30/2017 Nai Akers Z01.810 Encounter for 2:40p Cardiology Of Antonio Spencer preprocedural [facility] cardiovascular examination E66.01 Morbid (severe) obesity due to excess calories Z68.44 Body mass index (BMI) 60.0-69.9, adult Z86.711 Personal history of pulmonary embolism Z79.01 group home (current) use of anticoagulants I36.1 Nonrheumatic tricuspid (valve) insufficiency G47.33 Obstructive sleep apnea (adult) (pediatric) R94.31 Abnormal electrocardiogram [ECG] [EKG] Office 03/11/2017 [facility] R07.9 Chest pain, Visit 2:31p Assoc,diana Rosado, [place] unspecified Hospitalists E66.01 Morbid (severe) obesity due to excess calories Z86.711 Personal history of pulmonary embolism Office 03/10/2017 [facility] R07.9 Chest pain, Visit 2:31p Assoc,diana Rosado, [place] unspecified Hospitalists E66.01 Morbid (severe) obesity due to excess calories Z86.711 Personal history of pulmonary embolism Office Visit 03/09/2017 [facility] Sarbjit R07.9 Chest pain, 2:30p Assoc,diana Aden, N.P. unspecified Hospitalists E66.01 Morbid (severe) obesity due to excess calories Z86.711 Personal history of pulmonary embolism Office Visit 03/09/2017 9:00a Pulmonology And Gauri R07.9 Chest pain, Sleep Services Of KRISTOPHER Elizabeth, RN, unspecified [facility] [employer] G47.33 Obstructive sleep apnea (adult) (pediatric) Office Visit 01/28/2017 10:30a [facility] Internal Serena D62 Acute posthemorrhagic Medicine - Antonio Murillo anemia [place] I26.99 Other pulmonary embolism without acute cor pulmonale E04.1 Nontoxic single thyroid nodule B37.9 Candidiasis, unspecified E66.01 Morbid (severe) obesity due to excess calories L03.116 Cellulitis of left lower limb J98.4 Other disorders of lung Office Visit 01/16/2017 [place] [id number] Acute 2:32p Assoc,pc Ann [employer] posthemorrhagic Hospitalists anemia I26.99 Other pulmonary embolism without acute cor pulmonale I10 Essential (primary) hypertension E66.01 Morbid (severe) obesity due to excess calories Office Visit 01/15/2017 [place] [id number] Acute 2:31p Assoc,pc Sam, [employer] posthemorrhagic Hospitalists anemia I26.99 Other pulmonary embolism without acute cor pulmonale I10 Essential (primary) hypertension E66.01 Morbid (severe) obesity due to excess calories Office Visit 01/14/2017 [facility] [place] [id number] Acute posthemorrhagic 2:30p Assdiana jones M.D. anemia Hospitalists I26.99 Other pulmonary embolism without acute cor pulmonale I10 Essential (primary) hypertension E66.01 Morbid (severe) obesity due to excess calories Office Visit 01/13/2017 [place] [address] Acute 2:30p Assoc,diana Vargas [employer] OIL CHECKER posthemorrhagic Hospitalists anemia I26.99 Other pulmonary embolism without acute cor pulmonale I10 Essential (primary) hypertension E66.01 Morbid (severe) obesity due to excess calories Office Visit 01/12/2017 [place] [address] Acute 2:29p Assoc,diana Vargas, G[employer] AND OIL CHECKER posthemorrhagic Hospitalists anemia I26.99 Other pulmonary embolism without acute cor pulmonale I10 Essential (primary) hypertension E66.01 Morbid (severe) obesity due to excess calories Office Visit 01/11/2017 [place] [address] Acute 4:00p Assocdiana G[employer] AND OIL CHECKER posthemorrhagic Hospitalists anemia I26.99 Other pulmonary embolism without acute cor pulmonale E66.01 Morbid (severe) obesity due to excess calories Office Visit 01/10/2017 [place] [address] Acute 4:00p Assocdiana, GAS AND OIL CHECKER posthemorrhagic Hospitalists anemia I26.99 Other pulmonary embolism without acute cor pulmonale E66.01 Morbid (severe) obesity due to excess calories Office Visit 01/09/2017 [place] [address] Acute 3:59p Assoc,pc Shannan, G[employer] AND OIL CHECKER posthemorrhagic Hospitalists anemia I26.99 Other pulmonary embolism without acute cor pulmonale E66.01 Morbid (severe) obesity due to excess calories Office Visit 01/08/2017 [place] [address] Acute 3:59p Assoc,pc Shannan, GAS AND OIL CHECKER posthemorrhagic Hospitalists anemia I26.99 Other pulmonary embolism without acute cor pulmonale E66.01 Morbid (severe) obesity due to excess calories Office Visit 01/07/2017 [place] [address] Acute 2:57p Assoc,pc Shannan, GAS AND OIL CHECKER posthemorrhagic Hospitalists anemia I26.99 Other pulmonary embolism without acute cor pulmonale E66.01 Morbid (severe) obesity due to excess calories Office Visit 01/06/2017 [place] [address] Acute 2:56p Assoc,pc Shannan, GAS AND OIL CHECKER posthemorrhagic Hospitalists anemia I26.99 Other pulmonary embolism without acute cor pulmonale E66.01 Morbid (severe) obesity due to excess calories Office Visit 01/05/2017 [place] [address] Acute 2:56p Assoc,diana Campbell, G[employer] AND OIL CHECKER posthemorrhagic Hospitalists anemia I26.99 Other pulmonary embolism without acute cor pulmonale E66.01 Morbid (severe) obesity due to excess calories Office Visit 01/04/2017 2:55p [facility], D62 Acute posthemorrhagic Assoc,pc N.P. anemia Hospitalists I26.99 Other pulmonary embolism without acute cor pulmonale E66.01 Morbid (severe) obesity due to excess calories I10 Essential (primary) hypertension Office Visit 01/03/2017 2:53p [facility], D62 Acute posthemorrhagic Assoc,pc N.P. anemia Hospitalists I26.99 Other pulmonary embolism without acute cor pulmonale E66.01 Morbid (severe) obesity due to excess calories Office Visit 12/30/2016 10:40a [facility] Internal Damian Ledezma, I27.82 Chronic Medicine - M.D. pulmonary Elbert embolism N92.0 Excessive and frequent menstruation with regular cycle I10 Essential (primary) hypertension Office Visit 12/23/2016 11:50a [facility] Internal Serena Murillo, R07.1 Chest pain on Medicine - M.D. breathing [place] Z91.120 Pt intentl undrdose of meds regimen due to financl hardship I27.82 Chronic pulmonary embolism Office Visit 12/19/2016 2:39p [facility] Michele I26.99 Other pulmonary Assoc,diana Anne M.D. embolism Hospitalists without acute cor pulmonale E66.01 Morbid (severe) obesity due to excess calories G47.33 Obstructive sleep apnea (adult) (pediatric) I10 Essential (primary) hypertension Office Visit 11/20/2016 3:00p [facility] Internal Ken N92.1 Excessive and Medicine - Antonio Monroe frequent [place] menstruation with irregular cycle G47.33 [...] osteoarthritis, left knee Office Visit 09/30/2016 3:00p [facility] Qutaybeh S. I10 Essential Antonio Spencer [...] knee Office Visit 06/05/2016 11:30a Orthopedic Sharyn Valenzuela S82.002D Unsp fracture Services Of M.D. of left C.M.A. patella, subs for clos fx w routn heal M17.12 Unilateral primary osteoarthritis, left knee Office Visit 05/04/2016 1:15p Orthopedic Sharyn Valenzuela, S82.002D [facility] Services Of M.D. of left C.M.A. patella, subs for clos [...] osteoarthritis, left C.M.A. knee Office Visit 02/12/2016 [facility] Moisés Garrison R07.9 Chest pain, 4:00p Of Crane Manager AT [facility] MD Dariana, unspecified FACC, FSCAI Office Visit 02/06/2016 [facility] Ngozi R07.9 Chest pain, 1:13p Assoc,diana Lloyd M.D. unspecified Hospitalists E66.01 Morbid (severe) obesity due to excess calories L02.419 Cutaneous abscess of limb, unspecified I10 Essential (primary) hypertension Office Visit 02/05/2016 [facility] Ngozi Lloyd, R07.9 Chest pain, 1:13p Assdiana jones M.D. unspecified Hospitalists E66.01 Morbid (severe) obesity due to excess calories L02.419 Cutaneous abscess of limb, unspecified I10 Essential (primary) hypertension Office Visit 02/05/2016 2:54p [facility] Chaz Hannah R07.9 Chest pain, Of Joel García M.D. unspecified R94.31 Abnormal electrocardiogram [ECG] [EKG] Office Visit 02/04/2016 [facility] Marley Stern, L02.411 Cutaneous 7:39a Assoc,diana PA abscess of right Hospitalists axilla Office Visit 02/03/2016 [facility] Ngozi Lloyd R07.9 Chest pain, 1:10p Assocdiana M.D. unspecified Hospitalists E66.01 Morbid (severe) obesity due to excess calories I10 Essential (primary) hypertension Office Visit 11/14/2015 11:00a [facility] Qutaybeh S. I10 Essential Antonio Spencer (primary) hypertension R06.02 Shortness of breath G47.33 Obstructive sleep apnea (adult) (pediatric) E66.01 Morbid (severe) obesity due to excess calories I25.10 Athscl heart disease of [place] coronary artery w/o ang pctrs Office Visit 02/25/2015 9:00a [facility] Julianne Lorenzis, 401.1 Hypertension Benign PA 786.05 Shortness Of Breath 327.23 Obstructive Sleep Apnea Adult & Pediatric 278.01 Obesity Morbid 414.01 Coronary Atherosclerosis [place] Office Visit 12/24/2014 9:30a Pulmonology And Cathy 327.23 Obstructive Sleep Sleep Services Of MD Haydee Apnea Adult & Crane Manager Pediatric 278.01 Obesity Morbid 493.10 Asthma Intrinsic Unspecified 530.81 Esophageal Reflux Office Visit 08/01/2014 9:40a [facility] Qutaybeh S. 786.05 Shortness Of Marilee Spencer.D. Breath 278.01 Obesity Morbid 401.1 Hypertension Benign 414.01 Coronary Atherosclerosis [place] Office Visit 07/18/2014 10:30a [facility] Qutaybeh S. 786.05 Shortness Of Louann SpencerD. Breath 786.50 Pain Chest Unspec 278.01 Obesity Morbid Office Visit 06/07/2014 [facility] Qucurtisybeh S. 414.01 Coronary 1:40p Cardiology Antonio Spencer Atherosclerosis [place] 401.1 Hypertension Benign 794.31 Electrocardiogram (ECG) (EKG) Abnormal 786.50 Pain Chest Unspec 786.05 Shortness Of Breath 782.3 Edema Office Visit 03/12/2009 [facility] Qucurtisybeh S. 414.01 Coronary 1:00p Cardiology Antonio Spencer Atherosclerosis [place] 401.1 Hypertension Benign 426.3 Left Bundle Branch Block Other Office 02/07/2009 [facility] Qutaybeh S. 794.31 Electrocardiogram Visit 3:20p Nina Spencer M.D. (ECG) (EKG) Abnormal 786.50 Pain Chest Unspec 414.01 Coronary Atherosclerosis [place] 401.1 Hypertension Benign Office Visit 02/01/2008 [facility] Qucurtisybeh S. 414.01 Coronary 9:00a Cardiology Antonio Spencer Atherosclerosis [place] 401.1 Hypertension Benign 415.19 Pulmonary Embolism And Infarction Other 427.1 Paroxysmal Ventricular Tachycardia 424.0 Mitral Valve Disorder 424.2 Tricuspid Valve Disorder Spec as Nonrheumatic Office Visit 09/22/2007 Madelin Forbes SApoorva 414.01 Coronary 9:00a Cardiology Antonio Spencer Atherosclerosis [place] 401.1 Hypertension Benign 415.19 Pulmonary Embolism And Infarction Other 794.31 Electrocardiogram (ECG) (EKG) Abnormal 427.1 Paroxysmal Ventricular Tachycardia Office Visit 05/16/2007 Madelin Forbes SApoorva 414.01 Coronary 10:00a Cardiology Antonio Spencer Atherosclerosis [place] 401.1 Hypertension Benign 415.19 Pulmonary Embolism And Infarction Other 411.89 Ischemic Heart Disease Other Office Visit 01/10/2007 Madelin Forbes SApoorva 414.01 Coronary 10:20a Nina Spencer M.D. Atherosclerosis [place] 401.1 Hypertension Benign 415.19 Pulmonary Embolism And Infarction Other 794.31 Electrocardiogram (ECG) (EKG) Abnormal Plan of Treatment Future Appointment(s):10/10/2018 2:45 pm - Ken Hodges M.D. at [facility]10/06/2018 - Serena Murillo M.D.Z01.818 Encounter for [...] to proceed with her surgery pending cardiac imgjpakzoM58.01 Short Achilles tendon (acquired ), right ghzcqC80.99 Other pulmonary embolism without acute cor pulmonaleComments:history of recurrent PE, on lovenox currently for increased risk perioperatively /wheel chair bound status )I10 Essential (primary) hypertensionComments:cjkyuxS17.33 Obstructive sleep apnea (adult) (pediatric) Comments:please follow up with the sleep study after your bnktcqqulU52.9 Gastro- esophageal reflux disease without esophagitisComments:stable with ikmtahsusuL47.31 Abnormal electrocardiogram [ECG] [EKG]B37.2 Candidiasis of skin and nailNew Medication:Clotrimazole/Betamethasone Dipropionate 1-0.05 % - apply to affected area underneath right breast x10 daysE04.1 Nontoxic single thyroid noduleComments:needs repeat thyroid ultrasound after surgery as it has not been done so farN93.8 Other specified abnormal uterine and vaginal bleedingComments:somewhat stable at this zctfrM28.44 Body mass index (BMI) 60.0- 69.9, adultComments:heel chair bound status
[2018-10-10] MEDS ORDERED: ceFAZolin 2 GM PREMIX in ORs 2 GM/50 ML BAG IVPB ONE (12:22)
[2018-10-10] MEDS ORDERED: Buffered Lidocaine 1% SYRIN* 1 ML/SYRINGE INTRADERM ONE (12:22)
[2018-10-10] MEDS ORDERED: ceFAZolin 1 GM ADVAN(*) 1 GM ADDV.VIAL IVPB ONE (12:22)
[2018-10-10] MEDS ORDERED: Dexamethasone IV* 4 MG/ML 1 ML (4 MG) ONE (12:22)
[2018-10-10] MEDS ORDERED: Famotidine IV* 10 MG/ML 2 ML (20 mg) ONE (12:22)
[2018-10-10] MEDS ORDERED: Bupivacaine 0.5%* 50 ML VIAL ONE (12:28)
[2018-10-10] MEDS ORDERED: VASOPRESSIN 20 UNITS/ML 1 ML VIAL ONE (14:31)
[2018-10-10] MEDS ORDERED: oxyCODONE TAB* 5 MG TAB PO PRN (14:34)
[2018-10-10] MEDS ORDERED: Naloxone* 0.4 MG/ML 1 ML VIAL IV PRN (14:34)
[2018-10-10] MEDS ORDERED: PROCHLORPERAZINE INJ 5 MG/ML 2 ML VIAL IV PRN (14:34)
[2018-10-10] MEDS ORDERED: Acetaminophen IV 1GM/100ML * 1,000 MG/100 ML VIAL IVPB ONE (14:34)
[2018-10-10] MEDS ORDERED: DiMENhydriNATE IV* 50 MG/ML VIAL IV PUSH PRN (14:34)
[2018-10-10] MEDS ORDERED: Ondansetron INJ* 2 MG/ML VIAL ONE (14:40)
[2018-10-10] MEDS ORDERED: diPHENhydraMINE IV* 50 MG/ML 1 ml VIAL (BENADRYL) IV PRN (14:53)
[2018-10-10] MEDS ORDERED: traZODone TAB* 50 MG TAB PO PRN (14:53)
[2018-10-10] MEDS ORDERED: Ondansetron INJ* 2 MG/ML VIAL IV PRN (14:53)
[2018-10-10] MEDS ORDERED: Lactated Ringers 1000 ML Bag* 1,000 ML IV SCH (15:00)
[2018-10-10] MEDS ORDERED: Nystatin TOP POWDER* 15 GM BTL TOPICAL PRN (15:02)
[2018-10-10] MEDS ORDERED: Albuterol HFA INHALER* 8 gm MDI INH PRN (15:02)
[2018-10-10] MEDS ORDERED: oxyCODONE/Acetamin 5/325 MG* TAB ONE (15:41)
[2018-10-10] MEDS ORDERED: fentaNYL* 50 MCG/ML 2 ML VIAL (100 MCG VIAL) ONE (15:41)
[2018-10-10] MEDS: oxyCODONE/Acetamin 5/325 MG* TAB PO PRN ×3 (15:44→23:45)
[2018-10-10] MEDS: fentaNYL* 50 MCG/ML 2 ML VIAL (100 MCG VIAL) IV PRN ×2 (15:44→16:12)
[2018-10-10] MEDS ORDERED: PROCHLORPERAZINE INJ 5 MG/ML 2 ML VIAL ONE (16:22)
--- NOTE | 2018-10-10 18:56 | CONS ---
CC: Dr. Serena Murillo; Dr. Ken Hodges * CONSULTATION REPORT: DATE OF CONSULT: 10/10/18 PRIMARY CARE PROVIDER: Dr. Serena Murillo. REQUESTING PHYSICIAN IN CONSULT: Dr. Ken Hodges. MY ATTENDING PHYSICIAN WHILE IN THE HOSPITAL: Dr. Ngozi Lloyd (report dictated by Seamus Aden NP). REASON FOR CONSULT: Evaluation and medical management of comorbid medical conditions. HISTORY OF PRESENT ILLNESS: Ms. Jain is a 58-year-old female patient that presented to Dr. Hodges's service for a right ankle contracture. She has been following with him. It was felt that she would benefit from an Achilles lengthening and bracing which was done today. Previous surgery had been canceled due to wound in the left abdomen that had been infected. She carries a history of pulmonary embolism, arthritis, GERD, asthma, untreated LUIS ANTONIO, history of V-tach, left bundle-branch block, hypertension, spinal stenosis. Because of the medical complexity, we were asked to evaluate in consult. She was evaluated in the PACU. She states that she is having a fair amount of pain and pain at the surgical site in her ankle. She denies having any chest pain. She denies feeling short of breath. She denies any abdominal pain. She does state that she feels nauseous and she has vomited once postoperatively, but she denies pain in her abdomen. She denies feeling lightheaded. She states she feels tired. She again does admit to having pain in the right foot. Because of her medical complexity, we were asked to evaluate in consult. PAST MEDICAL HISTORY: Significant for: 1. PE x2. 2. Arthritis. 3. Spinal stenosis. 4. GERD. 5. Asthma. 6. LUIS ANTONIO. 7. Morbid obesity. 8. History of V-tach in the past. 9. Left bundle-branch block. 10. Hypertension. 11. Right ankle contracture. PAST SURGICAL HISTORY: 1. She has had heart catheterization which showed no coronary artery disease per Cardiology records. 2. Tonsillectomy. 3. . 4. Hernia repair. 5. Cholecystectomy. 6. Gastric bypass. 7. L4-5 diskectomy. 8. Today she had an Achilles tendon lengthening. MEDICATIONS: Home meds according to the list provided includes: 1. Nystatin 1 application topically b.i.d. as needed. 2. Lopressor 12.5 mg p.o. every 12 hours. 3. Gabapentin 2 tablets at bedtime. 4. Ferrous gluconate 325 mg p.o. daily. 5. Zantac 300 mg p.o. daily. 6. Lovenox 150 mg subcu b.i.d. 7. Tylenol 2 tablets every 8 hours as needed. 8. Warfarin 5 mg p.o. daily. 9. Ventolin 2 puffs inhaled every 4 hours as needed. ALLERGIES TO MEDICATIONS: Include none, but she is allergic to BUCKWHEAT and PERFUME. FAMILY HISTORY: Her mother and father both had history of heart disease. SOCIAL HISTORY: She is a former smoker. She does not drink alcohol. She is . Surrogate decision maker is her daughter. REVIEW OF SYSTEMS: There is no documented fever. She denied having any significant weight change. There is no double vision. She is denying having any ear discharge. There is no rhinorrhea. There is no sore throat. No thyroid enlargement. She denied having any chest pain. There was no orthopnea and there is no nocturnal dyspnea. She denies having any abdominal pain. There was one episode with nausea and vomiting. No dysuria, no frequency. No seizure, no loss of consciousness. No pruritus and no skin ulcerations. Review of 14 systems completed, all others negative. PHYSICAL EXAM: Vital Signs: Blood pressure 147/94, pulse 86, respirations 18, O2 sat 95%, temperature 97.7. General: At this time, Ms. Jain is a 58-year- old female patient. She is morbidly obese. She is sitting in the PACU bed. She does not appear to be in any acute distress. HEENT: Head is atraumatic and normocephalic. Eyes: EOMs are intact. Sclerae anicteric, not pale. Neck : Supple. Throat: Oral mucosa appears to be dry. No oropharyngeal erythema. Heart: Sounds S1, S2. She had a regular rate and rhythm. No murmurs, rubs, or gallops. Lungs: Clear to auscultation bilaterally. No wheezes, rales, or rhonchi. Abdomen: Soft, flat, nontender. Bowel sounds are present. Extremities: Pulses were 2+ in the upper extremities, 2+ in the lower extremities. She has a cath in the right lower extremity. Distal CSM checks were intact. Neurologically, she is drowsy, but she awakens to her name and she is oriented x3. Her speech is clear. Tongue midline. No facial drooping. She had no gross focal deficits. She is grossly moving all 4 extremities, although range of motion is limited in the right lower extremity because this was the operative site. Skin: Intact with the exception she has an incision to the right ankle which is covered with a dressing; clean, dry, and intact. DIAGNOSTIC STUDIES/LAB DATA: Preop WBC of 6.6, RBC of 5.32, hemoglobin of 14.4 , hematocrit of 45, and platelet count of 243,000. INR 1.26. Sodium 141, potassium 4.1, chloride 102, bicarb 32, BUN 14, creatinine 0.71, glucose 106. She had a preoperative ultrasound which showed no evidence for right lower extremity DVT. She had a chest x-ray which showed no evidence of active cardiopulmonary disease. She saw Cardiology preoperatively as well. Old medical records were reviewed. Previous EKG showed left bundle-branch block. ASSESSMENT AND PLAN: Ms. Jain is a 58-year-old female patient coming into the orthopedic services today for a straightening and lengthening of her right Achilles tendon. We were asked to evaluate in consult. My recommendations at this point are: 1. Status post lengthening and straightening of the Achilles tendon. Further management with Dr. Hodges and his team. 2. History of pulmonary embolus. I will go ahead and get her back on her Lovenox therapeutic dosing as soon as possible and then bridge her to Coumadin. When her INR is between 2 and 3, I will stop Lovenox and she can follow with her PCP for this. 3. History of obstructive sleep apnea. I have ordered 24-hour pulse oximetry postoperatively. 4. History of ventricular tachycardia. We need to monitor her lytes. I will add on a mag for tomorrow and try to keep her mag at 2 and her potassium at 4. 5. Asthma. She does not appear to be exacerbated at this point, we will continue to monitor her, p.r.n. albuterol has been ordered and I will continue this. 6. Gastroesophageal reflux disease. Continue medications as prescribed. 7. Hypertension. Continue medications as prescribed. Continue her beta- blockers throughout her postop, perioperative period. 8. Left bundle-branch block. Again, stable. She will follow with her primary warble saw operator. 9. DVT prophylaxis. She will be on therapeutic Lovenox. 10. Code status. Full code. 11. Fluids, electrolytes, and nutrition. I would recommend a heart-healthy diet. TIME SPENT: Time spent on the consult was 50 minutes, greater than half the time was spent [id number] with the patient obtaining my history and physical, the other half of the time was spent going over the plan of care with the patient and implementing plan of care. I did discuss the plan of care with my attending, Dr. Lloyd, she is in agreement. SEAMUS ADEN, LARRY CAR OPERATOR [id number]/[facility] #: [id number] DIVINA
--- NOTE | 2018-10-10 20:26 | OP ---
DATE OF OPERATION: 10/10/18 - ROOM #352 DATE OF : 60 ATTENDING SURGEON: Ken Hodges MD OWNER SPA DIRECTOR: Jeanette Pitt PA-C PRE-OP DIAGNOSIS: Contracture, right tendon Achilles. POST-OP DIAGNOSIS: Contracture, right tendon Achilles. OPERATIVE PROCEDURE: Lengthening of right tendon Achilles. DESCRIPTION OF PROCEDURE: The patient was taken to the operating room where general anesthesia was performed in the supine position. We externally rotated the lower leg and sized to 8 cm along the medial Achilles. The Achilles was exposed, freed up with an [employer] retractor and then approximately 6-cm longitudinal Z-lengthening was performed. This allowed the ankle to come up to a neutral position. I would say the overall lengthening of the tendon was probably 5 cm. We then repaired side to side using running 2-0 Vicryl sutures. We irrigated the bed thoroughly and closed subcu with 2-0 Vicryl, christiano for the skin, and a compression dressing, plaster splint applied. [id number]/[facility] #: [id number] [facility] CENTERCosmo
[2018-10-10] MEDS ORDERED: Ferrous Sulfate TAB* 325 MG PO SCH (21:00)
[2018-10-10] MEDS: Docusate CAP* 100 MG PO SCH (21:39)
[2018-10-10] MEDS: Famotidine TAB* 20 MG PO SCH (21:39)
[2018-10-10] MEDS: Metoprolol Tartrate TAB* 25 MG PO SCH (21:39)
[2018-10-10] MEDS: Gabapentin CAP(*) 100 MG PO SCH (21:40)
[2018-10-10] MEDS: Enoxaparin(*) 150 MG/ML 1 ML SYRINGE SUBCUT SCH (21:42)
[2018-10-10] MEDS: Nystatin CREAM* 15 GM TUBE TOPICAL SCH (21:50)
[2018-10-10] MEDS: Acetaminophen TAB* 325 MG PO SCH (23:21)
[2018-10-10] MEDS: ceFAZolin 1 GM ADVAN(*) 1 GM in NS 0.9% 50 ML* 50 ML IVPB SCH (23:26)
[2018-10-11] MEDS: oxyCODONE/Acetamin 5/325 MG* TAB PO PRN ×5 (03:54→20:03)
[2018-10-11] MEDS: Morphine VIAL* 4 MG/ML VIAL (1 ml vial) IV PRN ×4 (06:45→17:53)
[2018-10-11] MEDS: ceFAZolin 1 GM ADVAN(*) 1 GM in NS 0.9% 50 ML* 50 ML IVPB SCH ×2 (06:46→15:24)
[2018-10-11 06:51] LABS: Hematocrit 37 % (35-47); Mean Platelet Volume 9.3 fL (7.4-10.4); Platelet Count 203 10^3/ul (150-450)
[2018-10-11 06:57] LABS: INR 1.02 (0.77-1.02)
[2018-10-11 07:05] LABS: BUN/Creatinine Ratio 17.9 (8-20); Calcium 9.1 mg/dL (8.6-10.3); EGFR African American 134.5 (>60); EGFR Non-African American 111.2 (>60); Magnesium 1.7 mg/dL (1.9-2.7); Potassium 4.4 mmol/L (3.5-5.0)
[2018-10-11] MEDS: Acetaminophen TAB* 325 MG PO SCH ×2 (08:08→15:21)
[2018-10-11] MEDS: Nystatin CREAM* 15 GM TUBE TOPICAL SCH ×2 (08:12→21:54)
[2018-10-11] MEDS: Enoxaparin(*) 150 MG/ML 1 ML SYRINGE SUBCUT SCH ×2 (09:17→21:52)
[2018-10-11] MEDS: Ferrous Gluconate TAB* 324 MG TAB PO SCH (09:17)
[2018-10-11] MEDS: Metoprolol Tartrate TAB* 25 MG PO SCH ×2 (09:17→21:50)
[2018-10-11] MEDS: Docusate CAP* 100 MG PO SCH ×2 (09:17→20:02)
[2018-10-11] MEDS ORDERED: Magnesium Oxide TAB* 400 MG PO ONE (09:43)
--- NOTE | 2018-10-11 10:12 | PN ---
Progress Note - Progress Note Date of Service: 10/11/18 SOAP: Subjective: []Pt seen and examined at bedside. Her right leg is nonpainful. Denies chest pain, shortness of breath, dizziness, nausea. Sensation of right foot is improved from preoperative state. Objective: []General: NAD RLE: Splint CDI, no erythema proximally or distally. Exposed toes with sensation intact to light touch, capillary refill less than two seconds distally Left calf supple and nontender without erythema, edema or palpable cords. Assessment: []POD1 sp right achilles lengthening Dr Hodges 10.10.18 Plan: NWB RLE DVT prophylaxis and History of pulmonary embolus: therapeutic lovenox bridge to coumadin. Stop lovenox when INR is 2-3 LUIS ANTONIO: 24-hour pulse oximetry postoperatively. Hx V tach: monitor electrolytes with goal of mag at 2 and her potassium at 4. Needs rehab placement, [facility]. CM made aware Vital Signs Temp 97.5 F 10/11/18 07:50 Pulse 94 10/11/18 07:50 Resp 18 10/11/18 09:26 BP 140/67 10/11/18 07:50 Pulse Ox 96 10/11/18 07:50 Intake & Output 10/10/18 10/11/18 10/11/18 18:59 06:59 18:59 Intake Total 1000 2264 Output Total 0 900 200 Balance 1000 1364 -200 Weight 350 lb Intake: IV Fluids 1000 824 ABX - CEFAZOLIN 50 LR 1000 774 Oral 1440 Output: Urine 0 900 200 Other: # Bowel Movements 0 Estimated Blood Loss MINIMAL Comment Laboratory Last Values Hgb 12.0 g/dl (12.0-16.0) 10/11/18 06:37 Hct 37 % (35-47) 10/11/18 06:37 Plt Count 203 10^3/ul (150-450) 10/11/18 06:37 MPV 9.3 fL (7.4-10.4) 10/11/18 06:37 INR (Anticoag Therapy) 1.02 (0.77-1.02) 10/11/18 06:37 Sodium 140 mmol/L (135-145) 10/11/18 06:37 Potassium 4.4 mmol/L (3.5-5.0) 10/11/18 06:37 Chloride 104 mmol/L (101-111) 10/11/18 06:37 Carbon Dioxide 32 mmol/L (22-32) 10/11/18 06:37 Anion Gap 4 mmol/L (2-11) 10/11/18 06:37 BUN 10 mg/dL (6-24) 10/11/18 06:37 Creatinine 0.56 mg/dL (0.51-0.95) 10/11/18 06:37 Est GFR ( Amer) 134.5 (>60) 10/11/18 06:37 Est GFR (Non-Af Amer) 111.2 (>60) 10/11/18 06:37 BUN/Creatinine Ratio 17.9 (8-20) 10/11/18 06:37 Glucose 145 mg/dL (70-100) H 10/11/18 06:37 Calcium 9.1 mg/dL (8.6-10.3) 10/11/18 06:37 Magnesium 1.7 mg/dL (1.9-2.7) L 10/11/18 06:37
--- NOTE | 2018-10-11 15:32 | CONSULT ---
Subjective Date of Service: 10/11/18 Interval History: Patient POD#1 from right achilles tendon lengthening. Denies CP or SOB. States they told her she needed oxygen overnight. States she hasn't gotten the test yet to see if she has LUIS ANTONIO. Knows she needs to go to rehab because she can't care for herself in this condition. Tolerating PO. No N/V. Review of Systems - Measurements Intake and Output: Intake and Output Last 24 Hours 10/09/18 10/10/18 10/11/18 10/12/18 06:59 06:59 06:59 06:59 Intake Total 3264 420 Output Total 900 400 Balance 2364 20 Weight 158.757 kg Intake: IV Fluids 1824 ABX - CEFAZOLIN 50 LR 1774 Oral 1440 420 Output: Urine 900 400 Other: # Bowel Movements 0 Estimated Blood Loss MINIMAL Comment Objective Active Medications: Acetaminophen (Tylenol Tab*) 975 mg PO Q8H [facility] Last Admin: 10/11/18 15:21 Dose: Not Given Albuterol (Ventolin Hfa Inhaler*) 2 puff INH Q4H PRN PRN Reason: WHEEZING Diphenhydramine HCl (Benadryl Iv*) 25 mg IV Q6H PRN PRN Reason: itching Docusate Sodium (Colace Cap*) 100 mg PO BID [facility] Last Admin: 10/11/18 09:17 Dose: 100 mg Enoxaparin Sodium (Lovenox(*)) 150 mg SUBCUT BID [facility] Last Admin: 10/11/18 09:17 Dose: 150 mg Famotidine (Pepcid Tab*) 40 mg PO BEDTIME [facility]; Protocol Last Admin: 10/10/18 21:39 Dose: 40 mg Ferrous Gluconate (Fergon Tab*) 324 mg PO QAM [facility] Last Admin: 10/11/18 09:17 Dose: 324 mg Gabapentin (Neurontin Cap(*)) 200 mg PO BEDTIME [facility] Last Admin: 10/10/18 21:40 Dose: 200 mg Lactated Ringer's (Lactated Ringers 1000 Ml Bag*) 1,000 mls @ 75 mls/hr IV PER RATE [facility] Metoprolol Tartrate (Lopressor Tab*) 12.5 mg PO Q12HR [facility] Last Admin: 10/11/18 09:17 Dose: 12.5 mg Morphine Sulfate (Morphine Vial*) 2 mg IV Q2H PRN PRN Reason: PAIN Last Admin: 10/11/18 10:41 Dose: 2 mg Nystatin (Nystatin Cream*) 1 applic TOPICAL BID [facility] Last Admin: 10/11/18 08:12 Dose: Not Given Nystatin (Nystatin Top Powder*) 1 applic TOPICAL BID PRN PRN Reason: RASH Ondansetron HCl (Zofran Inj*) 4 mg IV Q6H PRN PRN Reason: nausea Oxycodone/Acetaminophen (Percocet 5/325 Tab*) 1 tab PO Q4H PRN PRN Reason: PAIN Last Admin: 10/11/18 03:54 Dose: 1 tab Oxycodone/Acetaminophen (Percocet 5/325 Tab*) 2 tab PO Q4H PRN PRN Reason: PAIN Last Admin: 10/11/18 09:26 Dose: 2 tab Trazodone HCl (Desyrel Tab*) 25 mg PO BEDTIME PRN PRN Reason: insomnia Warfarin Sodium (Coumadin Tab(*)) 5 mg PO DAILY@1700 [facility]; Protocol Vital Signs - 8 hr 10/11/18 10/11/18 10/11/18 07:50 08:09 09:26 Temperature 97.5 F Pulse Rate 94 Respiratory 16 20 18 Rate Blood Pressure 140/67 (mmHg) O2 Sat by Pulse 96 Oximetry 10/11/18 10/11/18 10/11/18 10:41 11:19 12:13 Temperature 97.9 F Pulse Rate 93 Respiratory 18 16 16 Rate Blood Pressure 116/61 (mmHg) O2 Sat by Pulse 91 Oximetry 10/11/18 12:45 Temperature Pulse Rate Respiratory Rate Blood Pressure (mmHg) O2 Sat by Pulse 94 Oximetry Oxygen Devices in Use Now: None Eyes: PERRLA Ears/Nose/Mouth/Throat: Mucous Membranes Moist Neck: Trachea Midline Respiratory: Symmetrical Chest Expansion and Respiratory Effort, Clear to Auscultation Cardiovascular: NL Sounds; No Murmurs; No JVD, RRR Abdominal: NL Sounds; No Tenderness; No Distention Extremities: - - cast/jorge luis wrap in place over left lower extremity. SCDs. Good cap refill, able to move her toes Skin: No Rash or Ulcers Neurological: Alert and Oriented x 3, - - sensory deficit in left foot - chronic Result Diagrams: 10/11/18 06:37 10/11/18 06:37 Assessment/Plan - Billing Plan By Medical Problem: This is a 58 yr old with PMHx of morbid obesity, HTN who is POD #1 from achilles tendon lengthening with Dr. Hodges Tendon lengthening A/P Per Ortho team - Will need rehab HTN A. Controlled Plan: Continue Lopressor BID GERD A. Controlled Continue Zantac Hx of PE x 2 Patient is being bridged with Lovenox and coumadin has been restarted INR: 1.07 Plan Repeat INR in AM ?LUIS ANTONIO A. Patient requiring oxygen overnight. She is morbidly obese. Has yet had a sleep study, but suspect she has LUIS ANTONIO Plan Will order overnight pulse ox with recordings VTE PPX: On Lovenox therapuetic doses Diet: Regular Code Status: Full Code Admission Status and Rationale: Per ORtho team
[2018-10-11] MEDS: Warfarin TAB(*) 5 MG PO SCH (17:54)
[2018-10-11] MEDS: Famotidine TAB* 20 MG PO SCH (21:49)
[2018-10-11] MEDS: Gabapentin CAP(*) 100 MG PO SCH (21:50)
[2018-10-12] MEDS: oxyCODONE/Acetamin 5/325 MG* TAB PO PRN ×5 (00:35→22:14)
[2018-10-12] MEDS: Acetaminophen TAB* 325 MG PO SCH ×4 (00:40→22:39)
[2018-10-12] MEDS: Morphine VIAL* 4 MG/ML VIAL (1 ml vial) IV PRN (04:05)
[2018-10-12] MEDS ORDERED: Morphine INJ* 2 MG/ML 1 ML SYRINGE (TWO MG - NEW SYRINGE VERSION) IV PRN (06:00)
[2018-10-12 07:29] LABS: ABS Basophils 0 10^3/ul (0-0.2); ABS Eosinophils 0.2 10^3/ul (0-0.6); ABS Lymphocytes 1.5 10^3/ul (1.0-4.8); ABS Monocytes 0.5 10^3/ul (0-0.8); ABS Neutrophils 3.7 10^3/ul (1.5-7.7); ABS Nucleated RBC 0 10^3/ul; Eosinophil % 2.8 %; Hematocrit 37 % (35-47); Hemoglobin 11.8 g/dl (12.0-16.0); Lymphocyte % 25.8 %; Mean Corpuscular HGB Conc 32 g/dl (31-36); Mean Corpuscular Hemoglobin 28 pg (27-31); Mean Corpuscular Volume 86 fL (80-97); Mean Platelet Volume 9.5 fL (7.4-10.4); Nucleated Red Blood Cells % 0.1; Platelet Count 189 10^3/ul (150-450); Red Cell Distribution Width 19 % (10.5-15); White Blood Count 5.9 10^3/ul (3.5-10.8)
[2018-10-12 07:33] LABS: INR 1.04 (0.77-1.02)
[2018-10-12] MEDS: Nystatin CREAM* 15 GM TUBE TOPICAL SCH ×2 (09:14→21:29)
[2018-10-12] MEDS: Metoprolol Tartrate TAB* 25 MG PO SCH ×2 (09:21→21:27)
[2018-10-12] MEDS: Ferrous Gluconate TAB* 324 MG TAB PO SCH (09:22)
[2018-10-12] MEDS: Docusate CAP* 100 MG PO SCH ×2 (09:22→21:28)
[2018-10-12] MEDS: Enoxaparin(*) 150 MG/ML 1 ML SYRINGE SUBCUT SCH ×2 (09:22→21:29)
--- NOTE | 2018-10-12 15:10 | PN ---
Subjective Date of Service: 10/12/18 Interval History: No BM since admission Lingering nonproductive cough for month no chest pain, SOB, fever, chills, nausea, vomiting, abdominal pain. Anxious to get to rehab and then home. Up to chair with PT. using 2 percosets at at time to control pain. Objective Active Medications: Acetaminophen (Tylenol Tab*) 975 mg PO Q8H [facility] Last Admin: 10/12/18 14:19 Dose: Not Given Albuterol (Ventolin Hfa Inhaler*) 2 puff INH Q4H PRN PRN Reason: WHEEZING Diphenhydramine HCl (Benadryl Iv*) 25 mg IV Q6H PRN PRN Reason: itching Docusate Sodium (Colace Cap*) 100 mg PO BID [facility] Last Admin: 10/12/18 09:22 Dose: 100 mg Enoxaparin Sodium (Lovenox(*)) 150 mg SUBCUT BID [facility] Last Admin: 10/12/18 09:22 Dose: 150 mg Famotidine (Pepcid Tab*) 40 mg PO BEDTIME [facility]; Protocol Last Admin: 10/11/18 21:49 Dose: 40 mg Ferrous Gluconate (Fergon Tab*) 324 mg PO QAM [facility] Last Admin: 10/12/18 09:22 Dose: 324 mg Gabapentin (Neurontin Cap(*)) 200 mg PO BEDTIME [facility] Last Admin: 10/11/18 21:50 Dose: 200 mg Lactated Ringer's (Lactated Ringers 1000 Ml Bag*) 1,000 mls @ 75 mls/hr IV PER RATE [facility] Metoprolol Tartrate (Lopressor Tab*) 12.5 mg PO Q12HR [facility] Last Admin: 10/12/18 09:21 Dose: 12.5 mg Morphine Sulfate (Morphine Inj ((Syringe))*) 2 mg IV Q2H PRN PRN Reason: PAIN Nystatin (Nystatin Cream*) 1 applic TOPICAL BID [facility] Last Admin: 10/12/18 09:14 Dose: Not Given Nystatin (Nystatin Top Powder*) 1 applic TOPICAL BID PRN PRN Reason: RASH Ondansetron HCl (Zofran Inj*) 4 mg IV Q6H PRN PRN Reason: nausea Oxycodone/Acetaminophen (Percocet 5/325 Tab*) 1 tab PO Q4H PRN PRN Reason: PAIN Last Admin: 10/11/18 03:54 Dose: 1 tab Oxycodone/Acetaminophen (Percocet 5/325 Tab*) 2 tab PO Q4H PRN PRN Reason: PAIN Last Admin: 10/12/18 12:11 Dose: 2 tab Trazodone HCl (Desyrel Tab*) 25 mg PO BEDTIME PRN PRN Reason: insomnia Warfarin Sodium (Coumadin Tab(*)) 5 mg PO DAILY@1700 [facility]; Protocol Last Admin: 10/11/18 17:54 Dose: 5 mg Vital Signs - 8 hr 10/12/18 10/12/18 10/12/18 07:31 07:58 08:01 Temperature 97.6 F Pulse Rate 90 Respiratory 18 18 16 Rate Blood Pressure 110/45 (mmHg) O2 Sat by Pulse 96 92 Oximetry 10/12/18 10/12/18 10/12/18 09:20 12:11 12:39 Temperature 98.8 F Pulse Rate 84 Respiratory 18 18 16 Rate Blood Pressure 118/80 (mmHg) O2 Sat by Pulse 94 Oximetry 10/12/18 14:20 Temperature Pulse Rate Respiratory 18 Rate Blood Pressure (mmHg) O2 Sat by Pulse Oximetry Oxygen Devices in Use Now: None Appearance: NAD, super morbid obesity, in chair Eyes: No Scleral Icterus, PERRLA Ears/Nose/Mouth/Throat: NL Teeth, Lips, Gums, Mucous Membranes Moist Neck: NL Appearance and Movements; NL JVP Respiratory: - - anteriorly clear to auscultation bilaterally. Cardiovascular: NL Sounds; No Murmurs; No JVD, RRR Abdominal: NL Sounds; No Tenderness; No Distention, No Hepatosplenomegaly Extremities: No Edema, - - right distal leg in splint, distal sensation intact. Skin: No Rash or Ulcers Neurological: Alert and Oriented x 3, NL Muscle Strength and Tone Nutrition: Taking PO's Result Diagrams: 10/12/18 07:20 10/11/18 06:37 Additional Lab and Data: Laboratory Results - last 24 hr 10/12/18 10/12/18 10/12/18 07:20 07:20 07:20 WBC 5.9 RBC 4.30 Hgb 11.8 L Hct 37 MCV 86 MCH 28 MCHC 32 RDW 19 H Plt Count 189 MPV 9.5 Neut % (Auto) 63.0 Lymph % (Auto) 25.8 Garland % (Auto) 7.7 Eos % (Auto) 2.8 Baso % (Auto) 0.7 Absolute Neuts (auto) 3.7 Absolute Lymphs (auto) 1.5 Absolute Monos (auto) 0.5 Absolute Eos (auto) 0.2 Absolute Basos (auto) 0 Absolute Nucleated RBC 0 Nucleated RBC % 0.1 INR (Anticoag Therapy) 1.04 H Magnesium 2.0 Assess/Plan/Problems-Billing Plan By Medical Problem: 58 yr old with PMHx of super morbid obesity (BMI 63), HTN who is POD #2 from right achilles tendon lengthening with Dr. Hodges #Tendon lengthening pain control per Ortho team adding sennakot given constipation on percosets. PT Awaiting insurance authorization from [facility] #HTN Controlled Continue Lopressor 12.5 po BID #LUIS ANTONIO A. Patient requiring oxygen overnight. She is morbidly obese. Has yet had a sleep study, but suspect she has LUIS ANTONIO overnight pulse ox with recordings - not clear if done. but tonight if not. #Hx of PE x 2 bridged with Lovenox 100mg BID + coumadin 5mg daily INR: 1.04, repeat daily #GERD Continue Zantac VTE PPX: On Lovenox therapuetic doses Diet: Regular Code Status: Full Code Admission Status and Rationale: Inpatient. Ortho primary, medicine consulting. Awaiting insurance auth for [facility].
--- NOTE | 2018-10-12 16:32 | PN ---
Progress Note - Progress Note Date of Service: 10/12/18 SOAP: Subjective: [] Pt seen and examined at bedside. She feels well, RLE pain has improved from yesterday, improved mobility with PT. Denies CP, SOB, dizziness, nausea. Objective: [] General: NAD RLE: Splint CDI, no erythema proximally or distally. Exposed toes with sensation intact to light touch, capillary refill less than two seconds distally Left calf supple and nontender without erythema, edema or palpable cords. Assessment: []POD2 sp right achilles lengthening Dr Hodges 10.10.18 Plan: NWB RLE DVT prophylaxis and History of pulmonary embolus: therapeutic lovenox bridge to coumadin. Stop lovenox when INR is 2-3 LUIS ANTONIO: 24-hour pulse oximetry postoperatively. Hx V tach: monitor electrolytes with goal of mag at 2 and her potassium at 4. Needs rehab placement, desires [facility]. CM made aware, awaiting insurance approval Vital Signs Temp 98.7 F 10/12/18 16:06 Pulse 87 10/12/18 16:06 Resp 18 10/12/18 16:06 BP 138/64 10/12/18 16:06 Pulse Ox 91 10/12/18 16:06 Intake & Output 10/11/18 10/12/18 10/12/18 18:59 06:59 18:59 Intake Total 475 1270 120 Output Total 400 700 300 Balance 75 570 -180 Intake: IVPB 55 ABX - CEFAZOLIN 55 Oral 420 1270 120 Output: Urine 400 700 300 Other: # Bowel Movements 0 Laboratory Last Values WBC 5.9 10^3/ul (3.5-10.8) 10/12/18 07:20 RBC 4.30 10^6/ul (4.00-5.40) 10/12/18 07:20 Hgb 11.8 g/dl (12.0-16.0) L 10/12/18 07:20 Hct 37 % (35-47) 10/12/18 07:20 MCV 86 fL (80-97) 10/12/18 07:20 MCH 28 pg (27-31) 10/12/18 07:20 MCHC 32 g/dl (31-36) 10/12/18 07:20 RDW 19 % (10.5-15) H 10/12/18 07:20 Plt Count 189 10^3/ul (150-450) 10/12/18 07:20 MPV 9.5 fL (7.4-10.4) 10/12/18 07:20 Neut % (Auto) 63.0 % 10/12/18 07:20 Lymph % (Auto) 25.8 % 10/12/18 07:20 Tyler % (Auto) 7.7 % 10/12/18 07:20 Eos % (Auto) 2.8 % 10/12/18 07:20 Baso % (Auto) 0.7 % 10/12/18 07:20 Absolute Neuts (auto) 3.7 10^3/ul (1.5-7.7) 10/12/18 07:20 Absolute Lymphs (auto) 1.5 10^3/ul (1.0-4.8) 10/12/18 07:20 Absolute Monos (auto) 0.5 10^3/ul (0-0.8) 10/12/18 07:20 Absolute Eos (auto) 0.2 10^3/ul (0-0.6) 10/12/18 07:20 Absolute Basos (auto) 0 10^3/ul (0-0.2) 10/12/18 07:20 Absolute Nucleated RBC 0 10^3/ul 10/12/18 07:20 Nucleated RBC % 0.1 10/12/18 07:20 INR (Anticoag Therapy) 1.04 (0.77-1.02) H 10/12/18 07:20 Sodium 140 mmol/L (135-145) 10/11/18 06:37 Potassium 4.4 mmol/L (3.5-5.0) 10/11/18 06:37 Chloride 104 mmol/L (101-111) 10/11/18 06:37 Carbon Dioxide 32 mmol/L (22-32) 10/11/18 06:37 Anion Gap 4 mmol/L (2-11) 10/11/18 06:37 BUN 10 mg/dL (6-24) 10/11/18 06:37 Creatinine 0.56 mg/dL (0.51-0.95) 10/11/18 06:37 Est GFR ( Amer) 134.5 (>60) 10/11/18 06:37 Est GFR (Non-Af Amer) 111.2 (>60) 10/11/18 06:37 BUN/Creatinine Ratio 17.9 (8-20) 10/11/18 06:37 Glucose 145 mg/dL (70-100) H 10/11/18 06:37 Calcium 9.1 mg/dL (8.6-10.3) 10/11/18 06:37 Magnesium 2.0 mg/dL (1.9-2.7) 10/12/18 07:20
[2018-10-12] MEDS: Warfarin TAB(*) 5 MG PO SCH (17:21)
[2018-10-12] MEDS: Senna TAB PO SCH (17:52)
[2018-10-12] MEDS: Gabapentin CAP(*) 100 MG PO SCH (21:27)
[2018-10-12] MEDS: Famotidine TAB* 20 MG PO SCH (21:27)
[2018-10-13] MEDS: oxyCODONE/Acetamin 5/325 MG* TAB PO PRN ×3 (03:46→13:36)
[2018-10-13 05:21] LABS: Hematocrit 35 % (35-47); Hemoglobin 11.3 g/dl (12.0-16.0); Mean Platelet Volume 8.9 fL (7.4-10.4); Platelet Count 173 10^3/ul (150-450)
[2018-10-13 05:25] LABS: INR 1.15 (0.77-1.02)
[2018-10-13] MEDS: Nystatin CREAM* 15 GM TUBE TOPICAL SCH (08:26)
[2018-10-13] MEDS: Acetaminophen TAB* 325 MG PO SCH ×2 (08:26→14:14)
[2018-10-13] MEDS: Metoprolol Tartrate TAB* 25 MG PO SCH (08:49)
[2018-10-13] MEDS: Enoxaparin(*) 150 MG/ML 1 ML SYRINGE SUBCUT SCH (08:49)
[2018-10-13] MEDS: Senna TAB PO SCH (08:49)
[2018-10-13] MEDS: Ferrous Gluconate TAB* 324 MG TAB PO SCH (08:49)
[2018-10-13] MEDS: Docusate CAP* 100 MG PO SCH (08:49)
[2018-10-13 11:45] VITALS: BP 120/66
--- NOTE | 2018-10-13 12:36 | PN ---
Progress Note - Progress Note Date of Service: 10/13/18 SOAP: Subjective: []Patient seen and examined at bedside. She feels well without chest pain, shortness of breath, dizziness, nausea. RLE pain is well controlled. Objective: []General: NAD RLE: Exam unchanged from yesterday. Splint CDI, no erythema proximally or distally. Exposed toes with sensation intact to light touch, capillary refill less than two seconds distally, able to wiggle all toes. Left calf supple and nontender without erythema, edema or palpable cords. Assessment: []POD3 sp right achilles lengthening Dr Hodges 10.10.18 Plan: NWB RLE DVT prophylaxis and History of pulmonary embolus: therapeutic lovenox bridge to coumadin. Stop lovenox when INR is 2-3 LUIS ANTONIO: 24-hour pulse oximetry postoperatively. Hx V tach: monitor electrolytes with goal of mag at 2 and her potassium at 4. DC to [facility], discussed with medicine, no changes to home meds with the exception of bridging lovenox to coumadin Vital Signs Temp 97.4 F 10/13/18 11:44 Pulse 84 10/13/18 11:44 Resp 18 10/13/18 11:44 BP 120/66 10/13/18 11:44 Pulse Ox 93 10/13/18 11:44 Intake & Output 10/12/18 10/13/18 10/13/18 18:59 06:59 18:59 Intake Total 600 660 100 Output Total 300 1000 300 Balance 300 -340 -200 Intake: Oral 600 660 100 Output: Urine 300 1000 300 Laboratory Last Values WBC 5.9 10^3/ul (3.5-10.8) 10/12/18 07:20 RBC 4.30 10^6/ul (4.00-5.40) 10/12/18 07:20 Hgb 11.3 g/dl (12.0-16.0) L 10/13/18 04:57 Hct 35 % (35-47) 10/13/18 04:57 MCV 86 fL (80-97) 10/12/18 07:20 MCH 28 pg (27-31) 10/12/18 07:20 MCHC 32 g/dl (31-36) 10/12/18 07:20 RDW 19 % (10.5-15) H 10/12/18 07:20 Plt Count 173 10^3/ul (150-450) 10/13/18 04:57 MPV 8.9 fL (7.4-10.4) 10/13/18 04:57 Neut % (Auto) 63.0 % 10/12/18 07:20 Lymph % (Auto) 25.8 % 10/12/18 07:20 Bennett % (Auto) 7.7 % 10/12/18 07:20 Eos % (Auto) 2.8 % 10/12/18 07:20 Baso % (Auto) 0.7 % 10/12/18 07:20 Absolute Neuts (auto) 3.7 10^3/ul (1.5-7.7) 10/12/18 07:20 Absolute Lymphs (auto) 1.5 10^3/ul (1.0-4.8) 10/12/18 07:20 Absolute Monos (auto) 0.5 10^3/ul (0-0.8) 10/12/18 07:20 Absolute Eos (auto) 0.2 10^3/ul (0-0.6) 10/12/18 07:20 Absolute Basos (auto) 0 10^3/ul (0-0.2) 10/12/18 07:20 Absolute Nucleated RBC 0 10^3/ul 10/12/18 07:20 Nucleated RBC % 0.1 10/12/18 07:20 INR (Anticoag Therapy) 1.15 (0.77-1.02) H 10/13/18 04:57 Sodium 140 mmol/L (135-145) 10/11/18 06:37 Potassium 4.4 mmol/L (3.5-5.0) 10/11/18 06:37 Chloride 104 mmol/L (101-111) 10/11/18 06:37 Carbon Dioxide 32 mmol/L (22-32) 10/11/18 06:37 Anion Gap 4 mmol/L (2-11) 10/11/18 06:37 BUN 10 mg/dL (6-24) 10/11/18 06:37 Creatinine 0.56 mg/dL (0.51-0.95) 10/11/18 06:37 Est GFR ( Amer) 134.5 (>60) 10/11/18 06:37 Est GFR (Non-Af Amer) 111.2 (>60) 10/11/18 06:37 BUN/Creatinine Ratio 17.9 (8-20) 10/11/18 06:37 Glucose 145 mg/dL (70-100) H 10/11/18 06:37 Calcium 9.1 mg/dL (8.6-10.3) 10/11/18 06:37 Magnesium 2.0 mg/dL (1.9-2.7) 10/12/18 07:20 =
[2018-10-13] MEDS ORDERED: Bisacodyl SUPP* 10 MG SUPP PR PRN (12:46)
--- NOTE | 2018-10-13 13:33 | DS ---
AMENDED REPORT NOW INCLUDES DESIGNATED COSIGNER DISCHARGE SUMMARY: DATE OF ADMISSION: 10/10/18 DATE OF DISCHARGE: DISPOSITION: The patient will be discharged to [facility]. PROVIDER: Dr. Ken Hodges.* (DICTATED BY EDIE AZEVEDO) PREOPERATIVE DIAGNOSES: Contracture of the right Achilles tendon. OPERATIVE PROCEDURE: Lengthening of the right Achilles tendon. HISTORY: The patient is a 58-year-old female with a history of contracture of the right Achilles tendon. She elected to undergo lengthening of the right Achilles tendon. HOSPITAL COURSE: The patient was admitted to [facility] on . She underwent lengthening of the right Achilles tendon without complications. She was admitted to the hospital in order to manage her medical comorbidities as well as to get Rehab placement. She was followed by hospitalist service during her stay. On postop day 1, her splint was clean, dry , and intact without erythema proximally or distally. sensation intact to light touch. Capillary refill less than 2 seconds distally. Left calf is supple and nontender without erythema, edema, or palpable cords. Exam remained the same throughout her stay. She has a history of pulmonary embolism. She is therefore on therapeutic Lovenox dosing with a bridge to Coumadin. When her INR is between 2 and 3, Lovenox can be stopped. She has a history of a ventricular tachycardia. Goal is to keep her serum potassium at 4. She did not have asthma exacerbation during her stay in the short-stay surgical unit. she was deemed to be medically and orthopedically stable for discharge to [facility]. DISCHARGE MEDICATIONS: Include: 1. Zantac 300 mg p.o. at bedtime. 2. Metoprolol 12.5 p.o. q.12 hours. 3. Gabapentin 100 mg two tabs p.o. at bedtime. 4. Warfarin 5 mg p.o. daily. 5. Ventolin 2 puffs inhaled q.4 hours p.r.n. 6. Ferrous gluconate 325 mg p.o. q.a.m. 7. Nystatin topical powder one application topically b.i.d. p.r.n. 8. Acetaminophen 2 tabs at 500 mg q.8 hours p.r.n. 9. Lovenox 150 mg subcu b.i.d. 10. Acetaminophen 975 mg p.o. q.8 hours p.r.n. 11. Docusate 100 mg p.o. b.i.d. 12. Percocet 5/325 one to two tabs every 4 to 6 hours as needed for pain, max daily dose of 10. DISCHARGE PLAN: The patient will be nonweightbearing on her right lower extremity. She will keep her splint clean, dry, and intact. Regular heart- healthy diet, may be resumed. Continue physical therapy and occupational therapy, exercises as shown. Pain control with Percocet 5/325 one to two tabs by mouth every 4 to 6 hours as needed for pain, max 10 tabs per day. Lovenox bridge to Coumadin. Stop Lovenox when INR is between 2 and 3. PCP to follow INR. Follow up with Dr. Hodges in 10 to 14 days postop, call with any concerns sooner. Please call for an appointment. EDIE PURI [id number]/[facility] #: [id number] DIVINA
== END 2018-10-13 16:12 | DRG 317 ==
LOC: AA 11:42 → EDSTATUS 15:15 → SSU 16:50
PROVIDERS: ADMIT Orthopaedic Surgery; ATTEND Orthopaedic Surgery
PROC: 0L8S0ZZ Division of Right Ankle Tendon, Open Approach (ICD-10-PCS; principal; 2018-10-10 14:00)
DX: M67.01 Short Achilles tendon (acquired), right ankle (principal); Z68.44 Body mass index [BMI] 60.0-69.9, adult; E66.01 Morbid (severe) obesity due to excess calories; K21.9 Gastro-esophageal reflux disease without esophagitis; J45.909 Unspecified asthma, uncomplicated; D25.9 Leiomyoma of uterus, unspecified; G47.33 Obstructive sleep apnea (adult) (pediatric); I44.7 Left bundle-branch block, unspecified; I10 Essential (primary) hypertension; I08.1 Rheumatic disorders of both mitral and tricuspid valves; I27.20 Pulmonary hypertension, unspecified; G89.29 Other chronic pain; K74.60 Unspecified cirrhosis of liver; E04.1 Nontoxic single thyroid nodule; M16.10 Unilateral primary osteoarthritis, unspecified hip; M51.36 Other intervertebral disc degeneration, lumbar region; M54.5 Low back pain; Z82.49 Family history of ischemic heart disease and other diseases of the circulatory system; Z86.711 Personal history of pulmonary embolism; Z82.3 Family history of stroke; Z88.8 Allergy status to other drugs, medicaments and biological substances; Z90.49 Acquired absence of other specified parts of digestive tract; Z91.018 Allergy to other foods; Z99.3 Dependence on wheelchair; Z98.84 Bariatric surgery status; Z79.01 Long term (current) use of anticoagulants
CPT/HCPCS: 36415; 80048; 83735; 85014; 85018; 85025; 85049; 85610; 94762; A9270-GY; G8978-GP-CL; G8979-GP-CI; J0330; J0690; J0780; J1100; J1650; J2270; J2405; J2704; J3010

== ENCOUNTER 2018-11-29 12:33 | Inpatient (IN) | payer MEDICAID ==
--- NOTE | 2018-11-29 12:50 | ED ---
Shortness of Breath - HPI Summary HPI Summary: A 58 y/o F brought in by ambulance presents to ED with c/o SOB onset two days ago. She has had a cough for weeks but worsened two days ago. Aggravating factors: walking. Pain is rated as 4/5 out of 10. Associated sx: mid-sternal CP onset two days ago that worsens with cough; lightheadedness; chills. She also c/ o a continuous period for two months, shes currently spotting. Denies: vaginal pain. She wears a RLE cast. PMHx: HTN, PE; she denies COPD, HDL, DM, NV. She is on Coumadin and does not take aspirin. - History of Current Complaint Time Seen by Provider: 11/29/18 12:37 Hx Obtained From: Patient Onset/Duration: Lasting Days, Still Present Current Severity: Moderate - 4/5 out of 10 Dyspnea At: Rest Aggrevating Factors: Movement - walking Associated Signs & Symptoms: Chest Pain w/Cough, Chills Related History: Obesity - Allergy/Home Medications Allergies/Adverse Reactions: Allergies Allergy/AdvReac Type Severity Reaction Status Date / Time buckwheat Allergy Rash Verified 10/10/18 12:28 Perfume [Fragrance] Allergy Unknown Verified 10/10/18 12:28 Reaction Details environmental Allergy Sneezing Uncoded 10/10/18 12:28 Home Medications: Home Medications Chlorpheniramine/Dextromethorp [Coricidin Hbp Cough & Col] 1 tab PO Q6HR PRN 09/07 [History Confirmed 11/29/18] Gabapentin CAP(*) [Neurontin 300 CAP(*)] 600 mg PO DAILY 11/29/18 [History Confirmed 11/29/18] Ranitidine TAB (NF) [Zantac TAB (NF)] 150 mg PO BID 11/29/18 [History Confirmed 11/29/18] Warfarin TAB(*) [Coumadin TAB(*)] 0.5 mg PO DAILY 11/29/18 [History Confirmed ] PMH/Surg Hx/FS Hx/Imm Hx Previously Healthy: No Endocrine/Hematology History: Reports: Hx Anemia Denies: Hx Diabetes, Hx Unexplained Bleeding Cardiovascular History: Reports: Hx Angina, Hx Deep Vein Thrombosis, Hx Embolism , Hx Hypertension, 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; tricuspid giseel disease, Other Cardiovascular Problems/Disorders - left BBB, chronic edema Denies: Hx Aneurysm, Hx Angioplasty, Hx Auto Implanted Cardiovert Defib, Hx Cardiac Arrest, Hx Cardiomegaly, Hx Congenital Heart Disease, Hx Congestive Heart Failure, Hx Coronary Artery Disease, Hx Hypercholesterolemia, Hx Hypotension, Hx Myocardial Infarction, Hx Pacemaker/ICD, Hx Peripheral Vascular Disease, Hx Rheumatic Fever, Hx Syncope Respiratory History: Reports: Hx Asthma, Hx Pulmonary Embolism, Hx Sleep Apnea, Other Respiratory Problems/Disorders - PE hx 2005 liyah Denies: Hx Chronic Obstructive Pulmonary Disease (COPD) GI History: Reports: Hx Gall Bladder Disease - removed, Hx Gastroesophageal Reflux Disease, Other GI Disorders - stomach stapled History: Denies: Hx Renal Disease Musculoskeletal History: Reports: Hx Arthritis - BOTH KNEES, SHOULDERS, NECK, BACK, HIPS "ALL OVER", Hx Back Problems - L4-5 lami a few months ago, Hx Bursitis - RIGHT SHOULDER, Other Musculoskeletal History - chronic knee pain Sensory History: Reports: Hx Contacts or Glasses Denies: Hx Cataracts, Hx Eye Injury, Hx Eye Prosthesis, Hx Glaucoma, Hx Legally Blind, Hx Macular Degeneration, Hx Vision Problem, Hx Hearing Aid, Other Sensory Impairments Opthamlomology History: Reports: Hx Contacts or Glasses Denies: Hx Cataracts, Hx Eye Injury, Hx Eye Prosthesis, Hx Glaucoma, Hx Legally Blind, Hx Macular Degeneration, Hx Vision Problem, Other Sensory Impairments Neurological History: Denies: Other Neuro Impairments/Disorders Psychiatric History: Denies: Hx Panic Disorder - Surgical History Surgery Procedure, Year, and Place: CARDIAC CATH, TONSILECTOMY, , RIGHT ABD HERNIA REPAIR X3, STOMACH STAPLING, CHOLECYSTECTOMY. [facility]-05/2017 Hx Anesthesia Reactions: Yes - AT TIMES SLOW TO COME OUT OF ANESTHESIA/ NAUSEA - Immunization History Date of Tetanus Vaccine: Unk Date of Influenza Vaccine: None Infectious Disease History: Denies: Hx Clostridium Difficile, Hx Hepatitis, Hx Human Immunodeficiency Virus (HIV), Hx of Known/Suspected MRSA, Hx Shingles, Hx Tuberculosis, Hx Known/ Suspected VRE, Hx Known/Suspected VRSA, History Other Infectious Disease - Family History Known Family History: Positive: Cardiac Disease - father with NV and in 80's, Hypertension - father - Social History Occupation: Unemployed Lives: Alone Alcohol Use: Rare Alcohol Amount: "once a year at [facility]" Hx Substance Use: No Substance Use Type: Reports: None Hx Tobacco Use: Yes Smoking Status (MU): Former Smoker Type: Cigarettes Amount Used/How Often: 1-2 CIGARETTES PER DAY X 1 YEAR Have You Smoked in the Last Year: No Review of Systems Positive: Chills. Negative: Fever Positive: Chest Pain Positive: Shortness Of Breath, Cough Positive: other - pos: vaginal bleeding/spotting. neg: vaginal pain Neurological: Other - pos: lightheadedness All Other Systems Reviewed And Are Negative: Yes Physical Exam - Summary Physical Exam Summary: GENERAL: Patient is a well-developed and nourished FEMALE who is lying comfortable in the stretcher. Patient is not in any acute respiratory distress. HEAD AND FACE: Normocephalic EYES: PERRLA, EOMI x 2. EARS: Hearing grossly intact. MOUTH: Oropharynx within normal limits. NECK: Supple, trachea is midline, no adenopathy, no JVD, no carotid bruit. CHEST: Symmetric, no tenderness at palpation LUNGS: Clear to auscultation bilaterally. No wheezing or crackles. CVS: Regular rate and rhythm, S1 and S2 present, no murmurs or gallops appreciated. ABDOMEN: Soft, non-tender. Bowel sounds are normal. No abdominal abnormal pulsations. EXTREMITIES: Full ROM in all major joints other than RLE calf is in cast; no edema, no cyanosis or clubbing. NEURO: Alert and oriented x 3. No acute neurological deficits. Speech is normal and follows commands. SKIN: Dry and warm Triage Information Reviewed: Yes Vital Signs Reviewed: Yes Diagnostics - Laboratory Result Diagrams: 11/29/18 13:20 11/29/18 13:20 Lab Statement: Any lab studies that have been ordered have been reviewed, and results considered in the medical decision making process. - Radiology CXR Radiology Interpretation Completed By: Radiologist Summary of Radiographic Findings: IMPRESSION: No active cardiopulmonary dz is noted. ED provider has reviewed this report. - EKG 1255 Cardiac Rate: NL - 77 bpm EKG Rhythm: Sinus Rhythm EKG Comparison: Other - Reviewed EKG from 08/11/2017 Summary of EKG Findings: LBBB. 1420 Cardiac Rate: NL - 77 bpm EKG Rhythm: Sinus Rhythm Re-Evaluation - Re-Evaluation 1 Re-Evaluation Time: 15:05 Change: Improved Comment: Patient's CP resolved after nitro. Course/Dx - Course Course Of Treatment: Pt is a 58 y/o F brought in by ambulance presenting with SOB and worsening cough for two days. Associated sx: mid-sternal CP onset two days ago that worsens with cough; lightheadedness; chills. Lab work is shows low RBC, Hgb, Hct; INR: 1.83, APTT: 36.8; BUN/C ratio: 26.1, glucose: 131; low Ca and Mg. Rapid flu A and B are negative. CXR shows no acute diease. Case discussed with hospitalist, Dr. Soria, who will admit pt. I discussed results with patient. The patient agrees with this plan. - Diagnoses Provider Diagnoses: Chest pain, Anemia - Physician Notifications Discussed Care of Patient With: Gualberto Soria - hospitalist Time Discussed With Above Provider: 15:43 Instructed by Provider To: Admit As Inpatient Discharge - Sign-Out/Discharge Documenting (check all that apply): Patient Departure - ADMIT Patient Received Moderate/Deep Sedation with Procedure: No - Discharge Plan Condition: Stable Disposition: ADMITTED TO [facility] Referrals: Serena Murillo MD [Medical Doctor] - - Billing Disposition and Condition Condition: STABLE Disposition: Admitted to [facility] - Attestation Statements Document Initiated by Yessicaibmarquis: Yes Documenting Scribe: Fátima Burris Provider For Whom Janusz is Documenting (Include Credential): Dr. Antoni Steel MD Scribe Attestation: I, Fátima Burris, scribed for Dr. Antoni Steel MD on 11/29/18 at 1820. Scribe Documentation Reviewed: Yes Provider Attestation: The documentation as recorded by the Fátima steve accurately reflects the service I personally performed and the decisions made by me, Dr. Antoni Steel MD Status of Scribe Document: Viewed
[2018-11-29] MEDS ORDERED: NS 0.9% 1000 ML** 1,000 ML IV ONE (13:25)
[2018-11-29] MEDS ORDERED: Albuterol/Ipratropium NEB.SOL* Albuterol 2.5 MG/Ipratropium 0.5 MG 3 ML INH ONE (13:25)
[2018-11-29] MEDS ORDERED: Nitroglycerin TAB 0.4 MG* 0.4 MG TAB SL ONE (13:26)
[2018-11-29] MEDS ORDERED: Aspirin 81 mg CHEW TAB* 81 MG TAB.CHEW PO ONE (13:26)
[2018-11-29 13:33] LABS: Influenza A Molecular NEGATIVE (Negative); Influenza B Molecular NEGATIVE (Negative)
[2018-11-29 13:36] LABS: ABS Basophils 0 10^3/ul (0-0.2); ABS Eosinophils 0.2 10^3/ul (0-0.6); ABS Monocytes 0.5 10^3/ul (0-0.8); ABS Neutrophils 4.9 10^3/ul (1.5-7.7); ABS Nucleated RBC 0 10^3/ul; Eosinophil % 3.6 %; Hematocrit 26 % (35-47); Hemoglobin 7.9 g/dl (12.0-16.0); Lymphocyte % 15.3 %; Mean Corpuscular HGB Conc 30 g/dl (31-36); Mean Corpuscular Hemoglobin 25 pg (27-31); Mean Corpuscular Volume 82 fL (80-97); Mean Platelet Volume 9.7 fL (7.4-10.4); Nucleated Red Blood Cells % 0.4; Platelet Count 222 10^3/ul (150-450); Red Blood Count 3.21 10^6/ul (4.00-5.40); Red Cell Distribution Width 18 % (10.5-15); White Blood Count 6.7 10^3/ul (3.5-10.8)
[2018-11-29 13:46] LABS: Activated Partial Thrombo Time 36.8 seconds (26.0-36.3); INR 1.83 (0.77-1.02)
[2018-11-29 13:59] LABS: ALT 6 U/L (7-52); AST 8 U/L (13-39); Albumin 3.5 g/dL (3.2-5.2); Albumin/Globulin Ratio 1.4 (1-3); Alkaline Phosphatase 58 U/L (34-104); Anion Gap 5 mmol/L (2-11); BUN/Creatinine Ratio 26.1 (8-20); Blood Urea Nitrogen 12 mg/dL (6-24); CO2 Carbon Dioxide 31 mmol/L (22-32); Calcium 8.5 mg/dL (8.6-10.3); Chloride 103 mmol/L (101-111); EGFR African American 168.8 (>60); EGFR Non-African American 139.5 (>60); Globulin 2.5 g/dL (2-4); Glucose 131 mg/dL (70-100); Magnesium 1.8 mg/dL (1.9-2.7); Potassium 4.2 mmol/L (3.5-5.0); Sodium 139 mmol/L (135-145)
[2018-11-29] MEDS ORDERED: Acetaminophen TAB* 325 MG PO PRN (17:23)
[2018-11-29] MEDS ORDERED: Albuterol HFA INHALER* 8 gm MDI INH PRN (17:26)
[2018-11-29] MEDS ORDERED: Enoxaparin(*) 100 MG/ML SYR SUBCUT SCH (18:00)
[2018-11-29] MEDS ORDERED: Magnesium Sulfate 1 GM IV* 1 GM/100 ML BAG IV ONE (18:12)
[2018-11-29] MEDS ORDERED: Iohexol 350* (CONTRAST) 500 ML MDV IV ONE (20:19)
[2018-11-29 21:14] LABS: Follicle Stimulating Hormone 30.9 mIU/mL
--- NOTE | 2018-11-29 21:58 | CONSULT ---
Consult Consult: Consultation note. Gynecology service. Mrs. Jain is a 58 y/o morbidly obese lady with a PMHx significant for Pulmonary embolism, HTN and long standing abnormal uterine bleeding. She was admitted today to the hospitalist service with complaints of SOB, chest pain, cough and continuous vaginal bleeding. She does not recall having regular menses and instead has periods of oligomenorrhea followed by episodes of menorrhagia. She is currently on anticoagulation treatment. She was last seen by Dr. Alysa Jordan of [facility] [place] and myself in 2017 for abnormal vaginal bleeding (menorrhagia). Dr. Jordan had inserted a Mirena IUD to control her bleeding. After her IUD insertion she was seen by me in April of 2017, she had a normal pap smear and a pelvic ultrasound which was consistent with a uterine fibroid. In the past ( 2008) she had had a D/C for abnormal bleeding and Mirena IUD insertion at the time of D/C, despite this she continued to bleed. I had referred her to Dr. Edilberto Rodriguez (tariff inspector/Onc) in [place] for definitive surgical treatment, however, after her visit in [place], she did not follow up with scheduled appointments and insisted on having her surgery (Hysterectomy) here in [place] despite obvious pre-surgical risks factors which would be better handled at a tertiary hospital. Patient is now not actively bleeding, her Hgb is 7.9. Recommendations. Please obtain a transvaginal pelvic ultrasound, FSH and Estradiol levels(only useful if her FSH is highly elevated and her Estradiol levels low confirming menopause), TSH level. If her HGb remains stable, start or continue Iron supplementation. Consider blood transfussion if bleeding continues. She needs endometrial sampling which can be done as an outpatient. This patient is at high risk for endometrial pathology due to her obesity. She would benefit the most from a definitive surgical procedure i.e. Hysterectomy, however, she is not a good candidate for this at this hospital due to body habitus and risk factors. I recommend she be seen by a science technician experienced in advanced laparoscopic or Robotic surgery in morbidly obese patients.
[2018-11-29 22:33] LABS: Estradiol <40 pg/mL
[2018-11-29] MEDS: Famotidine TAB* 20 MG PO SCH (22:51)
[2018-11-29] MEDS: Ferrous Gluconate TAB* 324 MG TAB PO SCH (22:52)
[2018-11-29] MEDS: Gabapentin CAP(*) 300 MG PO SCH (22:53)
[2018-11-29] MEDS: Metoprolol Tartrate TAB* 25 MG PO SCH (22:54)
--- NOTE | 2018-11-30 06:09 | HP ---
END OF REPORT LOST DUE TO VOICE DISTORTION - PERHAPS OUT OF CELL PHONE RANGE CC: Dr. Hernan Campa * HISTORY AND PHYSICAL: DATE OF ADMISSION: 11/29/18 PROVIDER: Susana Matos NP PRIMARY CARE PROVIDER: Dr. Hernan Campa ATTENDING PHYSICIAN WHILE IN THE HOSPITAL: Dr. Gualberto Soria * (dictated by Susana Matos NP). CHIEF COMPLAINT: Shortness of breath and chest pain. HISTORY OF PRESENT ILLNESS: Ms. Jain is a 58-year-old female with a past medical history significant for pulmonary embolism, hypertension, GERD and anemia who presented to the emergency room with complaints of lightheadedness, chest pain, and shortness of breath. The patient reports that she has had heavy vaginal bleeding for the past 2 months. She reports that she would change a pad every 3 hours and reports golf ball-sized clots at times. The patient reports that now she has just been spotting for 2 days, but due to the increased chest pain, shortness of breath and lightheadedness that was worse with exertion she presented to the emergency room for further evaluation. The patient denies any fevers or unintended weight loss. She does report decreased appetite and on and off chills, but none today. Does report chest pain. Denies any edema. Does report she has had a nonproductive cough all winter. She does report some increased shortness of breath with exertion today. Denies any hemoptysis. Denies any nausea, vomiting, diarrhea or abdominal pain, hematuria or dysuria, focal weakness or sensory loss. Denies any visual complaints, dysphagia, arthralgias, myalgias. She does complain of some mild redness under her left breast. Denies any psychosis or anxiety. While in the emergency room the patient had routine lab work drawn. She was found to be anemic with an H and H of 7.9 and 26. Due to the concern of chest pain and increasing anemia, we were asked to see and evaluate her for admission. PAST MEDICAL HISTORY: Significant for a pulmonary embolism, hypertension, GERD , anemia. Past medical history is significant for vaginal bleeding. PAST SURGICAL HISTORY: 1. Tonsillectomy. 2. . 3. Hernia repair x7. 4. Gastric bypass. 5. Cholecystectomy. 6. Back surgery. 7. Achilles tendon lengthening in September 2018. MEDICATIONS: Home medications include: 1. Warfarin 5.5 mg p.o. daily. 2. Ranitidine 150 mg p.o. b.i.d. 3. Metoprolol 12.5 mg p.o. q.12 hours. 4. Gabapentin 600 mg p.o. daily. 5. Ferrous gluconate 324 mg p.o. b.i.d. 6. Albuterol HFA inhaler 2 puffs q.4 hours p.r.n. shortness of breath. ALLERGIES: She has allergy to BUGWEED and PERFUME. FAMILY HISTORY: Father to questionable [place] at the age of 84. Denies no reported family history of diabetes or cancer. SOCIAL HISTORY: The patient reports rare use of alcohol. Denies any illicit drug use. Denies any tobacco use. She is . Surrogate decision maker in the event she is unable to make her own decisions is her daughter. She is a full code. REVIEW OF SYSTEMS: Review of 14-systems was completed, although pertinent positives were as mentioned in the HPI, all others were negative. PHYSICAL EXAMINATION GENERAL: Ms. Jain is a 58-year-old female who is lying on the stretcher in the emergency room. She is well nourished and well developed, morbidly obese, middle aged female, did not appear to be in acute distress. HEENT: Head is atraumatic and normocephalic. Eyes: EOMs are intact. Sclerae anicteric and not pale. Oral mucosa appeared to be moist. NECK: Supple. LUNGS: Clear to auscultation bilaterally. No wheezes, rales or rhonchi. CARDIAC: S1 and S2, regular rate and rhythm. No murmurs, rubs, or gallops. ABDOMEN: Soft and nontender. Bowel sounds are present x4. EXTREMITIES: She is able to move all 4 extremities. She does have a heart cath noted to right lower extremity. NEUROLOGIC: She is awake, alert, oriented x3. Speech is clear. Thought process is intact. There is no gross focal deficits noticed. SKIN: She does have some redness under the left breast. She does have a small scabbed area noted to her left lower abdomen. No surrounding erythema. RECTAL: The patient's rectal exam was performed. There was minimal stool on the rectal vault. There was no aileen blood noted and the glove tanned. Stool for guaiac was obtained. DIAGNOSTIC STUDIES/LAB DATA: WBCs are 6.7, RBCs 3.21, hemoglobin 7.9, hematocrit 26, platelet count 222. RDW was 18, MCVs were 82, MCH was 25. INR was 1.83, aPTT was 36.8, D-dimer was less than 200. Sodium 139, potassium 4.2, chloride 103, carbon dioxide was 31, anion gap was 5, BUN was 12, creatinine 0.46, glucose was 131, lactic acid 1.8, calcium 8.5, magnesium 1.8. ASTs were 8 , ALTs were 6, alkaline phosphatase 58. Troponin 0.00 x2. BNP was 49. Flu A and B were negative. She has a chest x-ray. Radiologist's impression: No active cardiopulmonary disease. She had an electrocardiogram which showed left bundle branch block at a rate of 79. Repeat EKG showed sinus rhythm at a rate of 77 and no bundle branch block. She does have a known history of left bundle branch block. She has a transvaginal ultrasound that currently shows essentially nondiagnostic pelvic ultrasound secondary to factors of body habitus and difficulty of positioning due to injury. The uterus appears to contain heterogeneous hypoechoic material. She had a CT of the chest that was currently pending. ASSESSMENT AND PLAN: Ms. Jain is a 58-year-old female with a past medical history significant for pulmonary embolism, hypertension, gastroesophageal reflux disease, and anemia from history of vaginal bleeding, who presented to the emergency room with complaints of chest pain, shortness of breath, and feeling lightheaded, who was found to be anemic with H and H of 7.9 and 26. Due to the anemia and chest pain and shortness of breath, we were asked to see and evaluate her for admission. She will be admitted under observation status for: 1. Chest pain. I suspect her chest pain could be related to her anemia. The patient is on chronic Coumadin therapy for history of pulmonary embolism x2. Her INR today was subtherapeutic at 1.83. The patient does have risk factors for having a PE, subtherapeutic INR with currently decreased mobility due to casting to the right lower extremities status post Achilles tendon lengthening. I will obtain the CTA of the chest to rule out pulmonary embolism. The patient is not hypoxic. She is not requiring oxygen at this time. This is well on the differential given her negative D-dimer, but given the fact that the patient has a subtherapeutic INR and came in with chest pain and shortness of breath, we will evaluate for pulmonary embolism. We will continue to trend troponins to rule out any acute coronary syndrome. I will check lipid profile in the a.m. 2. Shortness of breath. I suspect again her shortness of breath is related to her anemia. I will monitor her H and H. We will monitor vital signs and give her oxygen support as needed. 3. Anemia. I suspect her anemia is related to vaginal bleeding. She has had chronic vaginal bleeding for several years. She does report over the past 2 months she has had heavy vaginal bleeding, at times having golf ball-sized clots. She does report that she changes her pad every 3 hours. I did talk to Dr. Raines from [facility] who will see the patient in consultation. 4. History of pulmonary embolism. I am going to hold anticoagulation tonight due to the patient's vaginal bleeding and low H and H at 7.9 and 26. We will obtain a CT of the chest BALANCE OF REPORT LOST DUE TO VOICE DISTORTION - PERHAPS OUT OF CELL PHONE RANGE SUSANA MATOS, HEMATOLOGIST [id number]/[facility] #: [id number] DIVINA
[2018-11-30 09:18] LABS: ABS Basophils 0.1 10^3/ul (0-0.2); ABS Eosinophils 0.2 10^3/ul (0-0.6); ABS Lymphocytes 0.9 10^3/ul (1.0-4.8); ABS Monocytes 0.3 10^3/ul (0-0.8); ABS Neutrophils 4.2 10^3/ul (1.5-7.7); ABS Nucleated RBC 0 10^3/ul; Eosinophil % 4.4 %; Hematocrit 27 % (35-47); Lymphocyte % 15.6 %; Mean Corpuscular HGB Conc 30 g/dl (31-36); Mean Corpuscular Hemoglobin 24 pg (27-31); Mean Corpuscular Volume 81 fL (80-97); Mean Platelet Volume 8.4 fL (7.4-10.4); Nucleated Red Blood Cells % 0.2; Platelet Count 190 10^3/ul (150-450); Red Blood Count 3.34 10^6/ul (4.00-5.40); Red Cell Distribution Width 18 % (10.5-15); White Blood Count 5.7 10^3/ul (3.5-10.8)
[2018-11-30 09:24] LABS: INR 1.83 (0.77-1.02)
[2018-11-30 09:34] LABS: BUN/Creatinine Ratio 17.3 (8-20); Calcium 8.9 mg/dL (8.6-10.3); EGFR African American 146.6 (>60); EGFR Non-African American 121.1 (>60); HDL Cholesterol 26.8 mg/dL; Magnesium 2.1 mg/dL (1.9-2.7); Potassium 4.2 mmol/L (3.5-5.0)
[2018-11-30] MEDS: Ferrous Gluconate TAB* 324 MG TAB PO SCH ×2 (10:04→21:20)
[2018-11-30] MEDS: Metoprolol Tartrate TAB* 25 MG PO SCH ×2 (10:04→21:21)
[2018-11-30] MEDS: Famotidine TAB* 20 MG PO SCH ×2 (10:07→21:21)
[2018-11-30] MEDS ORDERED: Perflutren Lipid Microsphere* 3 ML VIAL ONE (11:09)
[2018-11-30] MEDS ORDERED: Aspirin 81 mg CHEW TAB* 81 MG TAB.CHEW PO ONE (13:26)
--- NOTE | 2018-11-30 18:22 | ECHO ---
Patient: NICKIE BROWN [facility] Rec#: [id number] : 1960 Date: 11/30/2018 Age: 58y Height: 157 cm / 61.8 in Weight: 163 kg / 359.3 lbs Sex: F BSA: 2.45 Room#: [facility] Admit Date#: 11/29/2018 Type: Inpatient Referring: Susana Matos Reading: Ana Laura Landrum MD Branch Associate: Malgorzata Chavarria RDCS CC: Cherelle Laura Transthoracic Echocardiogram Indication: Abnormal EKG, Chest pain BP: 139/81 HR: 77 Rhythm: NSR Findings History: Pulmonary embolism, HTN, anemia, hernia repair x 7, MO, LUIS ANTONIO. Technical Comments: The study is technically limited due to patient body habitus. Apical and subcostal views suboptimal for endocardial evaluation. Completed at 1200. Left Ventricle: The left ventricular chamber size is normal. Mild concentric left ventricular hypertrophy is observed. There is normal left ventricular systolic function. The estimated ejection fraction is 55-60%. Abnormal left ventricular diastolic function is observed. Abnormal left ventricular diastolic filling is observed, consistent with impaired relaxation. Left Atrium: The left atrium is mildly dilated. Right Ventricle: Moderator Band present. The right ventricle is mildly dilated. The right ventricle wall thickness is moderately increased. The right ventricular global systolic function is mildly reduced. Right Atrium: The right atrium is mildly dilated. Aortic Valve: The aortic valve is trileaflet. The aortic valve leaflets are mildly thickened. There is a trace of aortic regurgitation. There is no evidence of aortic stenosis. Mitral Valve: The mitral valve leaflets are mildly thickened. There is a trace of mitral regurgitation. There is no evidence of mitral stenosis. Tricuspid Valve: The tricuspid valve leaflets are normal. There is trace tricuspid regurgitation. Unable to estimate the right ventricular systolic pressure. There is no tricuspid stenosis. Pulmonic Valve: The pulmonic valve appears normal. There is trace to mild pulmonic regurgitation. There is no pulmonic stenosis. Pericardium: There is no significant pericardial effusion. A pericardial fat pad is visualized. Aorta: There is mild dilatation of the ascending aorta. There is no dilatation of the aortic arch. The aortic root is normal in size. Pulmonary Artery: The main pulmonary artery is not well visualized. Venous: The inferior vena cava is dilated. There is a greater than 50% respiratory change in the inferior vena cava dimension. Contrast: Definity was used to optimize study. 4 mL of diluted definity were utilized. Intravenous contrast was used to enhance endocardial border definition. Conclusions Mild concentric left ventricular hypertrophy is observed. There is normal left ventricular systolic function. The estimated ejection fraction is 55-60%. Abnormal left ventricular diastolic function is observed. The right ventricle is mildly dilated. The right ventricle wall thickness is moderately increased. There is a trace of aortic regurgitation. There is a trace of mitral regurgitation. There is trace tricuspid regurgitation. There is mild dilatation of the ascending aorta: 3.7 cm. Compared with prior echo of 12/20/16, EF is stable, RV dilatation and hypertrophy are new, RV hypokineisis seen on prior study. Valve function is stable. Measurements Name Value Normal Range RVIDd (AP) 2D 3.1 cm (0.9 - 2.6) RVDdMajor (2D) 4.5 cm (2.2 - 4.4) RVAW (2D) 1.1 cm (0.2 - 0.5) RAd ISD 4CH 4.1 cm (3.4 - 4.9) RA (A4C)W 4.9 cm (2.9 - 4.6) IVSd (2D) 1.2 cm (0.6 - 1) LVPWd (2D) 1.2 cm (0.6 - 1) LVIDd (2D) 4.6 cm (3.6 - 5.4) LVIDs (2D) 3.7 cm - LV FS (2D) 20 % (25 - 45) Aortic Annulus 1.8 cm (1.4 - 2.6) Ao root diameter (2D) 3.4 cm (2.1 - 3.5) Ascending Ao 3.7 cm (2.1 - 3.4) Aortic arch 1.7 cm (1.8 - 3.4) LA dimension (AP) 2D 3.8 cm (2.3 - 3.8) LAd ISD 4CH 6 cm (2.9 - 5.3) LA ISD 4CH W 5.3 cm (2.5 - 4.5) Name Value Normal Range LA ESV BP (A/L) index 37 ml/m2 - Name Value Normal Range MV E-wave Vmax 0.8 m/sec - MV deceleration time 113 msec - MV A-wave Vmax 1.1 m/sec - MV E:A ratio 0.8 ratio - LV septal e' Vmax 0.08 m/sec - LV lateral e' Vmax 0.07 m/sec - LV E:e' septal ratio 10 ratio - LV E:e' lateral ratio 11.4 ratio - Name Value Normal Range AV Vmax 1.6 m/sec - AV VTI 28 cm - AV peak gradient 10 mmHg - AV mean gradient 5 mmHg - LVOT Vmax 1.1 m/sec - LVOT VTI 24 cm - LVOT peak gradient 5 mmHg - LVOT mean gradient 2 mmHg - SUNITHA Vmax 1.1 m/sec - Name Value Normal Range IVC diameter 2.8 cm - Name Value Normal Range PV Vmax 1 m/sec - PV peak gradient 4 mmHg -
--- NOTE | 2018-11-30 19:26 | PN ---
Subjective Date of Service: 11/30/18 Interval History: Ms. Jain is feeling ok today. She reports that the chest pain has resolved and she only feels some mild pressure at this point. She describes this as feeling as though she cannot take a deep breath. She thinks it is r/t her asthma. She reports her vaginal bleeding resolved one day prior to admission. This happens quite often, approximately once every 1-2 months and can last days or weeks. She does regularly see a POLITICAL SCIENCE PROFESSOR. She is not interested in having another endometrial biopsy. She is also not interested in having a stress test, but cannot give a specific reason why. She denies SOB, N/V, dizziness. Family History: Unchanged from Admission Social History: Unchanged from Admission Past Medical History: Unchanged from Admission Objective Active Medications: Acetaminophen (Tylenol Tab*) 650 mg PO Q6H PRN FEVER/PAIN Albuterol (Ventolin Hfa Inhaler*) 2 puff INH Q4H PRN WHEE[facility] Famotidine (Pepcid Tab*) 20 mg PO BID [facility]; Protocol Ferrous Gluconate (Fergon Tab*) 324 mg PO BID [facility] Gabapentin (Neurontin Cap(*)) 600 mg PO BEDTIME [facility] Metoprolol Tartrate (Lopressor Tab*) 12.5 mg PO Q12HR [facility] Vital Signs - 8 hr 11/30/18 11/30/18 11:43 15:27 Temperature 98.3 F 98.2 F Pulse Rate 74 79 Respiratory 18 16 Rate Blood Pressure 129/73 137/59 (mmHg) O2 Sat by Pulse 95 96 Oximetry Oxygen Devices in Use Now: None Appearance: Middle-aged female sitting in chair in NAD Eyes: No Scleral Icterus Ears/Nose/Mouth/Throat: Mucous Membranes Moist Neck: NL Appearance and Movements; NL JVP, Trachea Midline Respiratory: Symmetrical Chest Expansion and Respiratory Effort, Clear to Auscultation Cardiovascular: NL Sounds; No Murmurs; No JVD, RRR Abdominal: NL Sounds; No Tenderness; No Distention Neurological: Alert and Oriented x 3 Lines/Tubes/Other Access: Clean, Dry and Intact Peripheral IV Nutrition: Taking PO's Result Diagrams: 11/30/18 09:09 11/30/18 09:09 Assess/Plan/Problems-Billing Assessment: Ms. Jain is a 58 yo F with PMH of PE, HTN, and abnormal vaginal bleeding; who presented to the ED with SOB and CP and was found to be severely anemic. - Patient Problems (1) Abnormal uterine bleeding Code(s): N93.9 - ABNORMAL UTERINE AND VAGINAL BLEEDING, UNSPECIFIED Comment: - Resolved at this point - Unclear etiology; she does see a POLITICAL SCIENCE PROFESSOR regularly, but it is not clear if there has been a formal workup; she is adamantly opposed to undergoing another biopsy - Transvaginal US without any obvious cause - Appreciate POLITICAL SCIENCE PROFESSOR consult; recommends outpt workup - Reviewed risks/benefits with pt and she is agreeable to restarting Coumadin tomorrow as long as she does not have further bleeding (2) Anemia Code(s): D64.9 - ANEMIA, UNSPECIFIED Comment: - Acute blood loss, secondary to vaginal bleeding - H&H stable - Stool occult pending to ensure there is not a GI cause (3) Chest pain Code(s): R07.9 - CHEST PAIN, UNSPECIFIED Comment: - Resolved - Negative trops x3, no EKG changes - Differentials include anemia and respiratory; low suspicion for cardaic cause - Negative stress test in 03/06 and she is unwilling to undergo another stress test tomorrow (4) Hyperlipidemia Code(s): E78.5 - HYPERLIPIDEMIA, UNSPECIFIED Comment: - LDL 129 - 6.2% risk fo CV event according to ASCVD risk algorithm; recommendation is moderate intensity statin - Start atorvastatin (5) Hx of pulmonary embolus Code(s): Z86.711 - PERSONAL HISTORY OF PULMONARY EMBOLISM Comment: - No evidence of PE on CTA, but she is at high risk of DVT/PE d/t right leg cast - Plan to restart Coumadin tomorrow if there is no further bleeding (6) HTN (hypertension) Code(s): I10 - ESSENTIAL (PRIMARY) HYPERTENSION Comment: - Normotensive, SBP 120-140s - Continue metoprolol (7) GERD (gastroesophageal reflux disease) Code(s): K21.9 - GASTRO-ESOPHAGEAL REFLUX DISEASE WITHOUT ESOPHAGITIS Comment : - Continue famotidine (8) DVT prophylaxis Comment: - Heparin SQ (9) Full code status Code(s): Z78.9 - OTHER SPECIFIED HEALTH STATUS Comment: Status and Disposition: Observation. Anticipate d/c home when medically stable. Attending: Jimy Anne
[2018-11-30] MEDS: Gabapentin CAP(*) 300 MG PO SCH (21:21)
[2018-11-30] MEDS: Heparin VIAL(*) 5000 UNITS/ML VIAL (FIVE THOUSAND) SUBCUT SCH (21:22)
[2018-11-30] MEDS ORDERED: Heparin VIAL(*) 5000 UNITS/ML VIAL (FIVE THOUSAND) SUBCUT SCH (22:00)
[2018-11-30] MEDS ORDERED: Melatonin 3 MG TAB PO PRN (22:46)
[2018-12-01] MEDS: Heparin VIAL(*) 5000 UNITS/ML VIAL (FIVE THOUSAND) SUBCUT SCH ×3 (05:25→20:52)
[2018-12-01 06:53] LABS: ABS Basophils 0.1 10^3/ul (0-0.2); ABS Eosinophils 0.2 10^3/ul (0-0.6); ABS Monocytes 0.5 10^3/ul (0-0.8); ABS Neutrophils 4.3 10^3/ul (1.5-7.7); ABS Nucleated RBC 0 10^3/ul; Eosinophil % 3.8 %; Hematocrit 26 % (35-47); Lymphocyte % 16.2 %; Mean Corpuscular HGB Conc 31 g/dl (31-36); Mean Corpuscular Hemoglobin 24 pg (27-31); Mean Corpuscular Volume 79 fL (80-97); Nucleated Red Blood Cells % 0.3; Platelet Count 218 10^3/ul (150-450); Red Blood Count 3.26 10^6/ul (4.00-5.40); Red Cell Distribution Width 18 % (10.5-15)
[2018-12-01 06:55] LABS: INR 1.44 (0.77-1.02)
[2018-12-01] MEDS: Famotidine TAB* 20 MG PO SCH ×2 (09:04→20:45)
[2018-12-01] MEDS: Metoprolol Tartrate TAB* 25 MG PO SCH ×2 (09:04→20:47)
[2018-12-01] MEDS: Ferrous Gluconate TAB* 324 MG TAB PO SCH ×2 (09:04→20:45)
[2018-12-01] MEDS: Nystatin CREAM* 15 GM TUBE TOPICAL SCH ×3 (09:05→20:49)
--- NOTE | 2018-12-01 15:37 | PN ---
Subjective Date of Service: 12/01/18 Interval History: Patient has persistent SOB which is intermittent. Patient denies CP, F/C, N/V, abdominal pain, diarrhea, constipation, dizziness, palpitations, or other pain. Patient states she had one more vaginal blood clot yesterday evening. Patient states she would be willing to undergo hysterectomy in [place] at a tertiary center, she just didn't like the attitude of the surgeon she was previously referred to and would like a second opinion. Family History: Unchanged from Admission Social History: Unchanged from Admission Past Medical History: Unchanged from Admission Objective Active Medications: Acetaminophen (Tylenol Tab*) 650 mg PO Q6H PRN PRN Reason: FEVER/PAIN Albuterol (Ventolin Hfa Inhaler*) 2 puff INH Q4H PRN PRN Reason: WHEEZING Atorvastatin Calcium (Lipitor*) 10 mg PO 1700 [facility] Famotidine (Pepcid Tab*) 20 mg PO BID [facility]; Protocol Last Admin: 12/01/18 09:04 Dose: 20 mg Ferrous Gluconate (Fergon Tab*) 324 mg PO BID [facility] Last Admin: 12/01/18 09:04 Dose: 324 mg Gabapentin (Neurontin Cap(*)) 600 mg PO BEDTIME [facility] Last Admin: 11/30/18 21:21 Dose: 600 mg Heparin Sodium (Porcine) (Heparin Vial(*)) 5,000 units SUBCUT Q8HR [facility] Last Admin: 12/01/18 13:44 Dose: 5,000 units Melatonin (Melatonin) 3 mg PO BEDTIME PRN PRN Reason: SLEEP Metoprolol Tartrate (Lopressor Tab*) 12.5 mg PO Q12HR [facility] Last Admin: 12/01/18 09:04 Dose: 12.5 mg Nystatin (Nystatin Cream*) 1 applic TOPICAL TID [facility] Last Admin: 12/01/18 13:44 Dose: 1 units Pharmacy Profile Note (Coumadin Daily Reminder*) 1 note FOLLOW UP 1700 [facility] Warfarin Sodium (Coumadin Tab(*)) 6 mg PO DAILY@1700 [facility]; Protocol Vital Signs - 8 hr 12/01/18 12/01/18 08:12 12:38 Temperature 98.6 F 97.7 F Pulse Rate 85 71 Respiratory 16 16 Rate Blood Pressure 136/73 129/58 (mmHg) O2 Sat by Pulse 94 93 Oximetry Oxygen Devices in Use Now: None Appearance: Patient is a 58yo female who appears much older than stated age and is sitting in the bed in NAD. Eyes: No Scleral Icterus, PERRLA Ears/Nose/Mouth/Throat: NL Teeth, Lips, Gums, Clear Oropharnyx, Mucous Membranes Moist Neck: NL Appearance and Movements; NL JVP, Trachea Midline Respiratory: Symmetrical Chest Expansion and Respiratory Effort, Clear to Auscultation Cardiovascular: NL Sounds; No Murmurs; No JVD, RRR, - - 1+ B/L LE edema. Abdominal: NL Sounds; No Tenderness; No Distention, No Hepatosplenomegaly Lymphatic: No Cervical Adenopathy Extremities: No Edema, No Clubbing, Cyanosis, - - Right foot in cast and walking boot. Skin: No Rash or Ulcers, No Nodules or Sclerosis Neurological: Alert and Oriented x 3, NL Sensation, NL Muscle Strength and Tone , - - CN II-XII intact. Result Diagrams: 12/01/18 06:27 11/30/18 09:09 Microbiology and Other Data: Microbiology 11/29/18 13:24 Aerobic Blood Culture - Preliminary Blood Venous No Growth Day 1 Anaerobic Blood Culture - Preliminary No Growth Day 1 11/29/18 13:20 Aerobic Blood Culture - Preliminary Blood Venous No Growth Day 1 Anaerobic Blood Culture - Preliminary No Growth Day 1 11/29/18 13:10 Influenza Types A,B Antigen - Final Nasal Specimen received for Influenza A/B Molecular testing Assess/Plan/Problems-Billing Assessment: Ms. Jain is a 58 yo F with PMH of PE, HTN, and abnormal vaginal bleeding; who presented to the ED with SOB and CP and was found to be severely anemic. Patient is improving and is being restarted on her coumadin. - Patient Problems (1) Abnormal uterine bleeding Current Visit: No Status: Acute Code(s): N93.9 - ABNORMAL UTERINE AND VAGINAL BLEEDING, UNSPECIFIED SNOMED Code(s): 11934588978357 Comment: - Resolved at this point except for one blood clot. - Unclear etiology; she does see a SLIP DUMPER regularly - States she has had 3 endometrial biopsies all of which were negative and refuses another. - Transvaginal US without any obvious cause - Appreciate SLIP DUMPER consult; recommends outpt workup and referral to surgeon who can handle complex hysterectomies - Restart coumadin and observe. (2) Anemia Current Visit: No Status: Acute Code(s): D64.9 - ANEMIA, UNSPECIFIED SNOMED Code(s): 699833330 Comment: - Acute on chronic blood loss, secondary to vaginal bleeding - H&H stable - Stool occult negative - Repeat iron panel and supplement IV if indicated. Continue oral iron. (3) Pulmonary HTN Current Visit: Yes Status: Acute Code(s): I27.20 - PULMONARY HYPERTENSION, UNSPECIFIED SNOMED Code(s): 19774626 Comment: - CT and Echo evidence of pHTN - With SOB on exertion - Differential includes LUIS ANTONIO, Obesity Hypoventilation, HFpEF and CTEPH - Given history of PE, evaluation at tertiary pulmonary HTN clinic for evaluation of CTEPH as a reversible cause of pHTN could be considered. (4) HTN (hypertension) Current Visit: No Status: Chronic Priority: Medium Code(s): I10 - ESSENTIAL (PRIMARY) HYPERTENSION SNOMED Code(s): 92364354 Comment: - Normotensive, SBP 120-140s - Continue metoprolol (5) Hx of pulmonary embolus Current Visit: No Status: Acute Code(s): Z86.711 - PERSONAL HISTORY OF PULMONARY EMBOLISM SNOMED Code(s): 744512923 Comment: - No evidence of PE on CTA, but she is at high risk of DVT/PE d/t right leg cast - Restart coumadin and check INR. (6) Hyperlipidemia Current Visit: Yes Status: Acute Code(s): E78.5 - HYPERLIPIDEMIA, UNSPECIFIED SNOMED Code(s): 72456392 Comment: - LDL 129 - 6.2% risk fo CV event according to ASCVD risk algorithm; recommendation is moderate intensity statin - Start atorvastatin (7) Chest pain Current Visit: No Status: Acute Priority: Medium Code(s): R07.9 - CHEST PAIN, UNSPECIFIED SNOMED Code(s): 13495111 Comment: - Resolved - Negative trops x3, no EKG changes - Differentials include anemia and respiratory; low suspicion for cardiac cause - Negative stress test in 03/06 and she is unwilling to undergo another stress test tomorrow - Negative CTA. (8) Contracture of right Achilles tendon Current Visit: No Status: Acute Code(s): M67.01 - SHORT ACHILLES TENDON ( ACQUIRED), RIGHT ANKLE SNOMED Code(s): 645841712 Comment: - S/P Repair, High risk for DVT. (9) GERD (gastroesophageal reflux disease) Current Visit: No Status: Chronic Code(s): K21.9 - GASTRO-ESOPHAGEAL REFLUX DISEASE WITHOUT ESOPHAGITIS SNOMED Code(s): 691325572 Comment: - Continue famotidine (10) DVT prophylaxis Current Visit: No Status: Acute Priority: Medium Code(s): VLP1661 - SNOMED Code(s): 547227865 Comment: - Heparin SQ and subtherapeutic coumadin. (11) Full code status Current Visit: No Status: Acute Code(s): Z78.9 - OTHER SPECIFIED HEALTH STATUS SNOMED Code(s): 169990335 Comment: Status and Disposition: Observation. Anticipate d/c home when medically stable.
[2018-12-01] MEDS: Warfarin TAB(*) 6 MG PO SCH (16:23)
[2018-12-01] MEDS: Atorvastatin* 10 MG TAB PO SCH (16:23)
[2018-12-01 16:45] LABS: % Iron Saturation 5 % (15-55); Iron 19 ug/dL (50-212); Total Iron Binding Capacity 416 mcg/dL (250-450); Transferrin 297 mg/dL (203-362)
[2018-12-01 17:05] LABS: Ferritin 10.7 ng/mL (11-307)
[2018-12-01] MEDS: Gabapentin CAP(*) 300 MG PO SCH (20:45)
[2018-12-02] MEDS: Heparin VIAL(*) 5000 UNITS/ML VIAL (FIVE THOUSAND) SUBCUT SCH ×3 (05:23→21:13)
[2018-12-02 07:12] LABS: INR 1.37 (0.77-1.02)
[2018-12-02 07:27] LABS: BUN/Creatinine Ratio 21.9 (8-20); Calcium 8.8 mg/dL (8.6-10.3); EGFR African American 115.3 (>60); EGFR Non-African American 95.3 (>60); Magnesium 1.9 mg/dL (1.9-2.7)
[2018-12-02 08:00] LABS: ABS Basophils 0 10^3/ul (0-0.2); ABS Eosinophils 0.2 10^3/ul (0-0.6); ABS Lymphocytes 1.1 10^3/ul (1.0-4.8); ABS Monocytes 0.5 10^3/ul (0-0.8); ABS Neutrophils 4.5 10^3/ul (1.5-7.7); ABS Nucleated RBC 0.1 10^3/ul; Eosinophil % 3.8 %; Hematocrit 27 % (33-41); Hemoglobin 8.2 g/dL (12.0-16.0); Lymphocyte % 17.7 %; Mean Corpuscular HGB Conc 30 g/dL (31-36); Mean Corpuscular Hemoglobin 24 pg (27-31); Mean Corpuscular Volume 81 fL (80-97); Mean Platelet Volume 9.2 fL (7.4-10.4); Nucleated Red Blood Cells % 0.9; Platelet Count 235 10^3/uL (150-450); Red Blood Count 3.37 10^6 /uL (3.70-4.87); Red Cell Distribution Width 19 % (10.5-15); White Blood Count 6.4 10^3/uL (3.5-10.8)
[2018-12-02] MEDS: Metoprolol Tartrate TAB* 25 MG PO SCH ×2 (09:19→21:17)
[2018-12-02] MEDS: Ferrous Gluconate TAB* 324 MG TAB PO SCH ×2 (09:20→21:13)
[2018-12-02] MEDS: Famotidine TAB* 20 MG PO SCH ×2 (09:20→21:13)
[2018-12-02] MEDS: Nystatin CREAM* 15 GM TUBE TOPICAL SCH ×3 (09:21→21:18)
[2018-12-02] MEDS ORDERED: Iron Sucrose* 20 MG/ML 5 ML VIAL IV PUSH ONE (11:59)
[2018-12-02] MEDS ORDERED: Iron Sucrose* 200 MG in NS 0.9% 100 ML* 100 ML IVPB ONE (13:00)
--- NOTE | 2018-12-02 15:11 | PN ---
Subjective Date of Service: 12/02/18 Interval History: Patient is feeling ok today, occasional LIMON. Patient denies CP, SOB at rest, N/V , abdominal pain, diarrhea, dizziness on standing. Patient states that she does not want to go back to her OBGYN but would be will to do so if absolutely necessary. Patient absolutely refuses to give herself lovenox injections at discharge. Patient continues to have small amounts of vaginal bleeding every time she urinates. Family History: Unchanged from Admission Social History: Unchanged from Admission Past Medical History: Unchanged from Admission Objective Active Medications: Acetaminophen (Tylenol Tab*) 650 mg PO Q6H PRN PRN Reason: FEVER/PAIN Albuterol (Ventolin Hfa Inhaler*) 2 puff INH Q4H PRN PRN Reason: WHEEZING Atorvastatin Calcium (Lipitor*) 10 mg PO 1700 [facility] Last Admin: 12/01/18 16:23 Dose: 10 mg Famotidine (Pepcid Tab*) 20 mg PO BID [facility]; Protocol Last Admin: 12/02/18 09:20 Dose: 20 mg Ferrous Gluconate (Fergon Tab*) 324 mg PO BID [facility] Last Admin: 12/02/18 09:20 Dose: 324 mg Gabapentin (Neurontin Cap(*)) 600 mg PO BEDTIME [facility] Last Admin: 12/01/18 20:45 Dose: 600 mg Heparin Sodium (Porcine) (Heparin Vial(*)) 5,000 units SUBCUT Q8HR [facility] Last Admin: 12/02/18 13:29 Dose: 5,000 units Melatonin (Melatonin) 3 mg PO BEDTIME PRN PRN Reason: SLEEP Metoprolol Tartrate (Lopressor Tab*) 12.5 mg PO Q12HR [facility] Last Admin: 12/02/18 09:19 Dose: 12.5 mg Nystatin (Nystatin Cream*) 1 applic TOPICAL TID [facility] Last Admin: 12/02/18 13:29 Dose: 1 units Pharmacy Profile Note (Coumadin Daily Reminder*) 1 note FOLLOW UP 1700 [facility] Last Admin: 12/01/18 16:23 Dose: 1 note Warfarin Sodium (Coumadin Tab(*)) 6 mg PO DAILY@1700 [facility]; Protocol Last Admin: 12/01/18 16:23 Dose: 6 mg Vital Signs - 8 hr 12/02/18 12/02/18 12/02/18 08:00 08:33 12:01 Temperature 98.6 F 98.4 F Pulse Rate 80 75 Respiratory 18 18 20 Rate Blood Pressure 127/61 130/55 (mmHg) O2 Sat by Pulse 92 93 Oximetry Oxygen Devices in Use Now: None Appearance: Patient is a 58yo female who appears older than stated age and is sitting in the bed in NAD. Eyes: No Scleral Icterus, PERRLA Ears/Nose/Mouth/Throat: NL Teeth, Lips, Gums, Clear Oropharnyx, Mucous Membranes Moist Neck: NL Appearance and Movements; NL JVP, Trachea Midline Respiratory: Symmetrical Chest Expansion and Respiratory Effort, Clear to Auscultation Cardiovascular: NL Sounds; No Murmurs; No JVD, RRR, No Edema, - - 1+ B/L LE edema. Abdominal: NL Sounds; No Tenderness; No Distention, No Hepatosplenomegaly Lymphatic: No Cervical Adenopathy Extremities: No Clubbing, Cyanosis, - - Right leg in cast with goos distal sensation and capillary refill. Skin: No Nodules or Sclerosis Neurological: Alert and Oriented x 3, NL Sensation, NL Muscle Strength and Tone , - - CN II-XII intact. Result Diagrams: 12/02/18 06:58 12/02/18 06:58 Microbiology and Other Data: Microbiology 11/29/18 13:24 Aerobic Blood Culture - Preliminary Blood Venous No Growth Day 1 Anaerobic Blood Culture - Preliminary No Growth Day 1 11/29/18 13:20 Aerobic Blood Culture - Preliminary Blood Venous No Growth Day 1 Anaerobic Blood Culture - Preliminary No Growth Day 1 11/29/18 13:10 Influenza Types A,B Antigen - Final Nasal Specimen received for Influenza A/B Molecular testing Assess/Plan/Problems-Billing Assessment: Ms. Jain is a 58 yo F with PMH of PE, HTN, and abnormal vaginal bleeding; who presented to the ED with SOB and CP and was found to be severely anemic. Patient is improving and is being restarted on her coumadin. - Patient Problems (1) Abnormal uterine bleeding Current Visit: No Status: Acute Code(s): N93.9 - ABNORMAL UTERINE AND VAGINAL BLEEDING, UNSPECIFIED SNOMED Code(s): 82166022291294 Comment: - Continued small amounts of vaginal bleeding. - Unclear etiology; she does see a AUTOMATION QA LEAD regularly - States she has had 3 endometrial biopsies all of which were negative and refuses another. - Transvaginal US without any obvious cause - Appreciate AUTOMATION QA LEAD consult; recommends outpt workup and referral to surgeon who can handle complex hysterectomies - Restart coumadin and observe. - Patient refuses to give lovenox injections and cannot be discharged without bridging, will remain inpatient until coumadin therapeutic. - If patient has hemodynamically significant recurrent bleeding, consider facility to facility transfer for hysterectomy. (2) Anemia Current Visit: No Status: Acute Code(s): D64.9 - ANEMIA, UNSPECIFIED SNOMED Code(s): 450767000 Comment: - Acute on chronic blood loss, secondary to vaginal bleeding - H&H stable - Stool occult negative - Iron panel shows AMARA, continue oral and IV supplementation. (3) Pulmonary HTN Current Visit: Yes Status: Acute Code(s): I27.20 - PULMONARY HYPERTENSION, UNSPECIFIED SNOMED Code(s): 14128807 Comment: - CT and Echo evidence of pHTN - With SOB on exertion - Differential includes LUIS ANTONIO, Obesity Hypoventilation, HFpEF and CTEPH - Given history of PE, evaluation at tertiary pulmonary HTN clinic for evaluation of CTEPH as a reversible cause of pHTN could be considered. (4) HTN (hypertension) Current Visit: No Status: Chronic Priority: Medium Code(s): I10 - ESSENTIAL (PRIMARY) HYPERTENSION SNOMED Code(s): 33371392 Comment: - Normotensive, SBP 120-140s - Continue metoprolol (5) Hx of pulmonary embolus Current Visit: No Status: Acute Code(s): Z86.711 - PERSONAL HISTORY OF PULMONARY EMBOLISM SNOMED Code(s): 797102218 Comment: - No evidence of PE on CTA, but she is at high risk of DVT/PE d/t right leg cast - Restart coumadin and check INR. - Unacceptably high risk for recurrent PE with recent orthopedic surgery, super morbid obesity and history of PE. Bridge coumadin with DVT prophylaxis dose heparin and monitor for bleeding. (6) Hyperlipidemia Current Visit: Yes Status: Acute Code(s): E78.5 - HYPERLIPIDEMIA, UNSPECIFIED SNOMED Code(s): 26275534 Comment: - LDL 129 - 6.2% risk fo CV event according to ASCVD risk algorithm; recommendation is moderate intensity statin - Start atorvastatin (7) Chest pain Current Visit: No Status: Acute Priority: Medium Code(s): R07.9 - CHEST PAIN, UNSPECIFIED SNOMED Code(s): 90087074 Comment: - Resolved - Negative trops x3, no EKG changes - Differentials include anemia and respiratory; low suspicion for cardiac cause - Negative stress test in 03/06 and she is unwilling to undergo another stress test tomorrow - Negative CTA. (8) Contracture of right Achilles tendon Current Visit: No Status: Acute Code(s): M67.01 - SHORT ACHILLES TENDON ( ACQUIRED), RIGHT ANKLE SNOMED Code(s): 607225799 Comment: - S/P Repair, High risk for DVT. (9) GERD (gastroesophageal reflux disease) Current Visit: No Status: Chronic Code(s): K21.9 - GASTRO-ESOPHAGEAL REFLUX DISEASE WITHOUT ESOPHAGITIS SNOMED Code(s): 814010606 Comment: - Continue famotidine (10) DVT prophylaxis Current Visit: No Status: Acute Priority: Medium Code(s): QGV2659 - SNOMED Code(s): 081802829 Comment: - Heparin SQ and subtherapeutic coumadin. (11) Full code status Current Visit: No Status: Acute Code(s): Z78.9 - OTHER SPECIFIED HEALTH STATUS SNOMED Code(s): 161629190 Comment: Status and Disposition: Inpatient. DC home when therapeutic on Coumadin, may need transfer if patient has recurrent bleeding.
[2018-12-02] MEDS: Warfarin TAB(*) 6 MG PO SCH (17:54)
[2018-12-02] MEDS: Atorvastatin* 10 MG TAB PO SCH (17:54)
[2018-12-02] MEDS: Gabapentin CAP(*) 300 MG PO SCH (21:10)
[2018-12-03] MEDS ORDERED: Cyclobenzaprine TAB* 10 MG PO ONE (03:07)
[2018-12-03] MEDS: Heparin VIAL(*) 5000 UNITS/ML VIAL (FIVE THOUSAND) SUBCUT SCH ×3 (05:26→22:22)
[2018-12-03 05:43] LABS: INR 1.48 (0.77-1.02)
[2018-12-03 05:55] LABS: Calcium 8.8 mg/dL (8.6-10.3); Potassium 3.8 mmol/L (3.5-5.0)
[2018-12-03 06:00] LABS: EGFR African American 129.2 (>60); EGFR Non-African American 106.8 (>60)
[2018-12-03 06:05] LABS: ABS Basophils 0 10^3/ul (0-0.2); ABS Eosinophils 0.2 10^3/ul (0-0.6); ABS Lymphocytes 1.3 10^3/ul (1.0-4.8); ABS Monocytes 0.5 10^3/ul (0-0.8); ABS Neutrophils 4.7 10^3/ul (1.5-7.7); ABS Nucleated RBC 0.1 10^3/ul; Eosinophil % 3.5 %; Hematocrit 28 % (33-41); Hemoglobin 8.3 g/dL (12.0-16.0); Lymphocyte % 19.3 %; Mean Corpuscular HGB Conc 30 g/dL (31-36); Mean Corpuscular Hemoglobin 24 pg (27-31); Mean Corpuscular Volume 81 fL (80-97); Mean Platelet Volume 9.3 fL (7.4-10.4); Nucleated Red Blood Cells % 0.8; Platelet Count 238 10^3/uL (150-450); Red Blood Count 3.47 10^6 /uL (3.70-4.87); Red Cell Distribution Width 19 % (10.5-15); White Blood Count 6.8 10^3/uL (3.5-10.8)
[2018-12-03] MEDS: Ferrous Gluconate TAB* 324 MG TAB PO SCH ×2 (08:11→19:46)
[2018-12-03] MEDS: Famotidine TAB* 20 MG PO SCH ×2 (08:11→19:46)
[2018-12-03] MEDS: Metoprolol Tartrate TAB* 25 MG PO SCH ×2 (08:11→19:46)
[2018-12-03] MEDS: Nystatin CREAM* 15 GM TUBE TOPICAL SCH ×3 (08:12→22:22)
--- NOTE | 2018-12-03 10:10 | PN ---
Subjective Date of Service: 12/03/18 Interval History: patient reports no noted vaginal bleeding this morning when she urinated. She is upset due to she wants to go home but again refuses to give herself injections at home due to needle phobia. She denies SOB/CP. Reports right lower foot "bad spasms" was given flexeril last night with good relief, Family History: Unchanged from Admission Social History: Unchanged from Admission Past Medical History: Unchanged from Admission Objective Active Medications: Acetaminophen (Tylenol Tab*) 650 mg PO Q6H PRN PRN Reason: FEVER/PAIN Albuterol (Ventolin Hfa Inhaler*) 2 puff INH Q4H PRN PRN Reason: WHEEZING Atorvastatin Calcium (Lipitor*) 10 mg PO 1700 [facility] Last Admin: 12/02/18 17:54 Dose: 10 mg Famotidine (Pepcid Tab*) 20 mg PO BID [facility]; Protocol Last Admin: 12/03/18 08:11 Dose: 20 mg Ferrous Gluconate (Fergon Tab*) 324 mg PO BID [facility] Last Admin: 12/03/18 08:11 Dose: 324 mg Gabapentin (Neurontin Cap(*)) 600 mg PO BEDTIME [facility] Last Admin: 12/02/18 21:10 Dose: 600 mg Heparin Sodium (Porcine) (Heparin Vial(*)) 5,000 units SUBCUT Q8HR [facility] Last Admin: 12/03/18 05:26 Dose: 5,000 units Melatonin (Melatonin) 3 mg PO BEDTIME PRN PRN Reason: SLEEP Last Admin: 12/03/18 00:10 Dose: 3 mg Metoprolol Tartrate (Lopressor Tab*) 12.5 mg PO Q12HR [facility] Last Admin: 12/03/18 08:11 Dose: 12.5 mg Nystatin (Nystatin Cream*) 1 applic TOPICAL TID [facility] Last Admin: 12/03/18 08:12 Dose: 1 units Pharmacy Profile Note (Coumadin Daily Reminder*) 1 note FOLLOW UP 1700 [facility] Last Admin: 12/02/18 17:55 Dose: 1 note Warfarin Sodium (Coumadin Tab(*)) 6 mg PO DAILY@1700 [facility]; Protocol Last Admin: 12/02/18 17:54 Dose: 6 mg Vital Signs - 8 hr 12/03/18 12/03/18 12/03/18 03:02 03:22 05:22 Temperature 97.9 F Pulse Rate 79 Respiratory 18 20 18 Rate Blood Pressure 131/66 (mmHg) O2 Sat by Pulse 90 Oximetry 12/03/18 07:45 Temperature 97.8 F Pulse Rate 71 Respiratory 18 Rate Blood Pressure 118/67 (mmHg) O2 Sat by Pulse 92 Oximetry Oxygen Devices in Use Now: None Appearance: obese female A+O x3 in NAD, flat affect Eyes: No Scleral Icterus, PERRLA Respiratory: Symmetrical Chest Expansion and Respiratory Effort, Clear to Auscultation Cardiovascular: NL Sounds; No Murmurs; No JVD, RRR, No Edema Abdominal: NL Sounds; No Tenderness; No Distention, - - obese - difficult to ausculate BS Extremities: No Edema, No Clubbing, Cyanosis, - - right LE in cast - good color Neurological: Alert and Oriented x 3, NL Sensation, NL Muscle Strength and Tone Lines/Tubes/Other Access: Clean, Dry and Intact Peripheral IV Nutrition: Taking PO's Result Diagrams: 12/03/18 05:26 12/03/18 05:26 Microbiology and Other Data: Microbiology 11/29/18 13:24 Aerobic Blood Culture - Preliminary Blood Venous No Growth Day 1 Anaerobic Blood Culture - Preliminary No Growth Day 1 11/29/18 13:20 Aerobic Blood Culture - Preliminary Blood Venous No Growth Day 1 Anaerobic Blood Culture - Preliminary No Growth Day 1 11/29/18 13:10 Influenza Types A,B Antigen - Final Nasal Specimen received for Influenza A/B Molecular testing Assess/Plan/Problems-Billing Assessment: Ms. Jain is a 58 yo F with PMH of PE, HTN, and abnormal vaginal bleeding; who presented to the ED with SOB and CP and was found to be severely anemic. Patient is improving and is being restarted on her coumadin. - Patient Problems (1) Abnormal uterine bleeding Comment: - Denies any vaginal bleeding today for the first time. HH stable. - Unclear etiology; she does see her PCP regulary who was going to send her to spray dry operator-onc - long hx of abnormal uterine bleeding which she has failed to follow up as outpatient with recommended high risk RENEWALS REPRESENTATIVE ONC surgeon in the past. Pt now states she will f/u and would like to undergo the hysterectomy - Appreciate RENEWALS REPRESENTATIVE consult - recommends outpt workup with endometrial biopsy - recommeding high risk surgeon due to her comorbidities - States she has had 3 endometrial biopsies all of which were negative and refuses another. - Transvaginal US without any obvious cause - Coumadin restarted with continued observation. Patient refuses to give lovenox injections and cannot be discharged without bridging, will remain inpatient until coumadin therapeutic. (2) Anemia Comment: - Acute on chronic blood loss, secondary to vaginal bleeding - H&H stable - Stool occult negative - Iron panel shows AMARA, continue oral and IV supplementation. (3) Hyperlipidemia Comment: - LDL 129 - 6.2% risk fo CV event according to ASCVD risk algorithm; recommendation is moderate intensity statin - atorvastatin initiated (4) Pulmonary HTN Comment: - CT and Echo evidence of pHTN - With SOB on exertion - Differential includes LUIS ANTONIO, Obesity Hypoventilation, HFpEF and CTEPH - Given history of PE, evaluation at tertiary pulmonary HTN clinic for evaluation of CTEPH as a reversible cause of pHTN could be considered. - should be referred to Pulmology Dr. Hubbard at discharge (5) Chest pain Comment: - Resolved - Negative trops x3, no EKG changes - Differentials include anemia and respiratory; low suspicion for cardiac cause - Negative stress test in 03/06 and she is unwilling to undergo another stress test which was recommended this hospitalization - Negative CTA. (6) Contracture of right Achilles tendon Comment: - S/P Repair, High risk for DVT. (7) Hx of pulmonary embolus Comment: - No evidence of PE on CTA, but she is at high risk of DVT/PE d/t right leg cast - Coumadin restarted 12/01 and continue to follow INR. - High risk for recurrent PE with recent orthopedic surgery, super morbid obesity and history of PE. Bridge coumadin with DVT prophylaxis dose heparin and monitor for bleeding. (8) GERD (gastroesophageal reflux disease) Comment: - Continue famotidine (9) Morbid obesity Comment: - BMI 62 - Patient following with bariatric surgeon in [place]. - Surgical plans on hold, per patient until she undergoes a hysterectomy (10) Full code status Comment: (11) DVT prophylaxis Comment: - Heparin SQ and subtherapeutic coumadin. Status and Disposition: Inpatient. DC home when therapeutic on Coumadin
[2018-12-03] MEDS: Cyclobenzaprine TAB* 10 MG PO PRN ×2 (14:07→22:20)
[2018-12-03] MEDS: Atorvastatin* 10 MG TAB PO SCH (17:08)
[2018-12-03] MEDS: Warfarin TAB(*) 6 MG PO SCH (17:08)
[2018-12-03] MEDS: Gabapentin CAP(*) 300 MG PO SCH (19:46)
[2018-12-04] MEDS: Heparin VIAL(*) 5000 UNITS/ML VIAL (FIVE THOUSAND) SUBCUT SCH ×3 (05:45→21:00)
[2018-12-04] MEDS: Cyclobenzaprine TAB* 10 MG PO PRN ×2 (05:45→16:49)
[2018-12-04 05:55] LABS: Hematocrit 30 % (33-41); Hemoglobin 8.7 g/dL (12.0-16.0); Mean Corpuscular HGB Conc 30 g/dL (31-36); Mean Corpuscular Hemoglobin 24 pg (27-31); Mean Corpuscular Volume 82 fL (80-97); Mean Platelet Volume 8.8 fL (7.4-10.4); Platelet Count 236 10^3/uL (150-450); Red Blood Count 3.61 10^6 /uL (3.70-4.87); Red Cell Distribution Width 19 % (10.5-15); White Blood Count 8.1 10^3/uL (3.5-10.8)
[2018-12-04 06:03] LABS: BUN/Creatinine Ratio 22.4 (8-20); Calcium 8.9 mg/dL (8.6-10.3); EGFR African American 129.2 (>60); EGFR Non-African American 106.8 (>60); Potassium 4.1 mmol/L (3.5-5.0)
[2018-12-04 06:16] LABS: ABS Basophils 0.1 10^3/ul (0-0.2); ABS Eosinophils 0.3 10^3/ul (0-0.6); ABS Lymphocytes 1.5 10^3/ul (1.0-4.8); ABS Monocytes 0.6 10^3/ul (0-0.8); ABS Neutrophils 5.8 10^3/ul (1.5-7.7); ABS Nucleated RBC 0 10^3/ul; Eosinophil % 3.6 %; Lymphocyte % 17.9 %; Nucleated Red Blood Cells % 0.3
[2018-12-04 06:17] LABS: Polychromasia 2+
--- NOTE | 2018-12-04 07:29 | PN ---
Subjective Date of Service: 12/04/18 Interval History: Pt reports no further vaginal bleeding today or yesterday. denies dizziness, sob. Reports flexeril PRN is helping her RLE foot spasms. Family History: Unchanged from Admission Social History: Unchanged from Admission Past Medical History: Unchanged from Admission Objective Active Medications: Acetaminophen (Tylenol Tab*) 650 mg PO Q6H PRN PRN Reason: FEVER/PAIN Albuterol (Ventolin Hfa Inhaler*) 2 puff INH Q4H PRN PRN Reason: WHEEZING Atorvastatin Calcium (Lipitor*) 10 mg PO 1700 [facility] Last Admin: 12/03/18 17:08 Dose: 10 mg Cyclobenzaprine HCl (Flexeril Tab*) 10 mg PO TID PRN PRN Reason: SPASMS Last Admin: 12/04/18 05:45 Dose: 10 mg Famotidine (Pepcid Tab*) 20 mg PO BID [facility]; Protocol Last Admin: 12/03/18 19:46 Dose: 20 mg Ferrous Gluconate (Fergon Tab*) 324 mg PO BID [facility] Last Admin: 12/03/18 19:46 Dose: 324 mg Gabapentin (Neurontin Cap(*)) 600 mg PO BEDTIME [facility] Last Admin: 12/03/18 19:46 Dose: 600 mg Heparin Sodium (Porcine) (Heparin Vial(*)) 5,000 units SUBCUT Q8HR [facility] Last Admin: 12/04/18 05:45 Dose: 5,000 units Melatonin (Melatonin) 3 mg PO BEDTIME PRN PRN Reason: SLEEP Last Admin: 12/03/18 00:10 Dose: 3 mg Metoprolol Tartrate (Lopressor Tab*) 12.5 mg PO Q12HR [facility] Last Admin: 12/03/18 19:46 Dose: 12.5 mg Nystatin (Nystatin Cream*) 1 applic TOPICAL TID [facility] Last Admin: 12/03/18 22:22 Dose: 1 applic Pharmacy Profile Note (Coumadin Daily Reminder*) 1 note FOLLOW UP 1700 [facility] Last Admin: 12/03/18 17:08 Dose: 1 note Tramadol HCl (Ultram*) 50 mg PO Q12H PRN PRN Reason: PAIN Warfarin Sodium (Coumadin Tab(*)) 6 mg PO DAILY@1700 [facility]; Protocol Last Admin: 12/03/18 17:08 Dose: 6 mg Vital Signs - 8 hr 12/03/18 12/04/18 12/04/18 23:42 00:20 04:05 Temperature 97.9 F 97.7 F Pulse Rate 80 71 Respiratory 20 20 18 Rate Blood Pressure 130/76 150/70 (mmHg) O2 Sat by Pulse 95 92 Oximetry 12/04/18 05:45 Temperature Pulse Rate Respiratory 20 Rate Blood Pressure (mmHg) O2 Sat by Pulse Oximetry Oxygen Devices in Use Now: None Appearance: chronically ill obese female sitting up in a chair A+O x3 in NAD - flat affect Eyes: PERRLA Respiratory: Symmetrical Chest Expansion and Respiratory Effort, Clear to Auscultation Cardiovascular: NL Sounds; No Murmurs; No JVD, RRR, No Edema Abdominal: NL Sounds; No Tenderness; No Distention, - - obese Extremities: - - RLE in cast - toes are pink and warm - no noted erythema or edema Skin: No Rash or Ulcers, No Nodules or Sclerosis Neurological: Alert and Oriented x 3, NL Muscle Strength and Tone Result Diagrams: 12/04/18 05:40 12/04/18 05:40 Microbiology and Other Data: Microbiology 11/29/18 13:24 Aerobic Blood Culture - Preliminary Blood Venous No Growth Day 1 Anaerobic Blood Culture - Preliminary No Growth Day 1 11/29/18 13:20 Aerobic Blood Culture - Preliminary Blood Venous No Growth Day 1 Anaerobic Blood Culture - Preliminary No Growth Day 1 11/29/18 13:10 Influenza Types A,B Antigen - Final Nasal Specimen received for Influenza A/B Molecular testing Assess/Plan/Problems-Billing Assessment: Ms. Jain is a 58 yo F with PMH of PE, HTN, and abnormal vaginal bleeding; who presented to the ED with SOB and CP and was found to be anemic. Patient is improving and is being restarted on her coumadin. - Patient Problems (1) Abnormal uterine bleeding Comment: - Denies any vaginal bleeding - today is day 2 w/o bleeding. HH stable and trending up. - Hx of fibroids which could be a possible cause - she is at high risk for EM cancer; she reports she does see her PCP regulary who was going to send her to obstetrics gynecology physician-onc - long hx of abnormal uterine bleeding which she has failed to follow up as outpatient with recommended high risk DIGITAL MARKETING EXECUTIVE ONC surgeon in the past. Pt now states she will f/u and would like to undergo the hysterectomy - Appreciate DIGITAL MARKETING EXECUTIVE consult - recommends outpt workup with endometrial biopsy - recommeding high risk surgeon due to her comorbidities - States she has had 3 endometrial biopsies all of which were negative and refuses another due to pain. - Transvaginal US without any obvious cause - Coumadin restarted with continued observation. Patient refuses to give lovenox injections and cannot be discharged without bridging, will remain inpatient until coumadin therapeutic. (2) Anemia Comment: - Acute on chronic blood loss, secondary to vaginal bleeding - H&H stable - Stool occult negative - Iron panel shows AMARA, continue oral iron (3) Hyperlipidemia Comment: - LDL 129 - 6.2% risk fo CV event according to ASCVD risk algorithm; recommendation is moderate intensity statin - atorvastatin initiated (4) Pulmonary HTN Comment: - CT and Echo evidence of pHTN - With SOB on exertion - Differential includes LUIS ANTONIO, Obesity Hypoventilation, HFpEF and CTEPH - Given history of PE, evaluation at tertiary pulmonary HTN clinic for evaluation of CTEPH as a reversible cause of pHTN could be considered. - should be referred to Pulmology Dr. Hubbard at discharge (5) Chest pain Comment: - Resolved - Negative trops x3, no EKG changes - Differentials include anemia and respiratory; low suspicion for cardiac cause - Negative stress test in 03/06 and she is unwilling to undergo another stress test which was recommended this hospitalization - Negative CTA. (6) Contracture of right Achilles tendon Comment: - S/P Repair now with cast, High risk for DVT. - Follows with Dr. Hodges - missed an appointment last week. She believes the cast was supposed to come off last week. She called and left a message at the office she was in the hospital. She should follow up in the ortho office this week (7) Hx of pulmonary embolus Comment: - No evidence of PE on CTA, but she is at high risk of DVT/PE d/t right leg cast - Coumadin restarted 12/01 and continue to follow INR. - High risk for recurrent PE with recent orthopedic surgery, super morbid obesity and history of PE. Bridge coumadin with DVT prophylaxis dose heparin and monitor for bleeding. (8) GERD (gastroesophageal reflux disease) Comment: - Continue famotidine (9) Morbid obesity Comment: - BMI 62 - Patient following with bariatric surgeon in [place]. - Surgical plans on hold, per patient until she undergoes a hysterectomy (10) Full code status Comment: (11) DVT prophylaxis Comment: - Heparin SQ and subtherapeutic coumadin. INR 1.76 Status and Disposition: Inpatient. DC home when therapeutic on Coumadin hopefully tomorrow or Wednesday
[2018-12-04 08:33] LABS: INR 1.76 (0.77-1.02)
[2018-12-04] MEDS: Ferrous Gluconate TAB* 324 MG TAB PO SCH ×2 (09:30→19:38)
[2018-12-04] MEDS: Famotidine TAB* 20 MG PO SCH ×2 (09:30→19:38)
[2018-12-04] MEDS: Metoprolol Tartrate TAB* 25 MG PO SCH ×2 (09:30→19:37)
[2018-12-04] MEDS: Nystatin CREAM* 15 GM TUBE TOPICAL SCH ×2 (09:31→12:39)
[2018-12-04] MEDS: traMADol TAB* 50 MG PO PRN (12:39)
[2018-12-04] MEDS: Warfarin TAB(*) 6 MG PO SCH (16:12)
[2018-12-04] MEDS: Atorvastatin* 10 MG TAB PO SCH (16:12)
[2018-12-04] MEDS: Gabapentin CAP(*) 300 MG PO SCH (19:37)
[2018-12-04] MEDS: Nystatin CREAM* 30 GM TOPICAL SCH (21:00)
[2018-12-05] MEDS: Cyclobenzaprine TAB* 10 MG PO PRN ×3 (00:35→23:06)
[2018-12-05] MEDS: traMADol TAB* 50 MG PO PRN ×2 (00:35→23:06)
[2018-12-05] MEDS: Heparin VIAL(*) 5000 UNITS/ML VIAL (FIVE THOUSAND) SUBCUT SCH ×2 (05:44→15:29)
[2018-12-05 06:45] LABS: ABS Basophils 0.1 10^3/ul (0-0.2); ABS Eosinophils 0.3 10^3/ul (0-0.6); ABS Lymphocytes 1.3 10^3/ul (1.0-4.8); ABS Monocytes 0.5 10^3/ul (0-0.8); ABS Neutrophils 5.6 10^3/ul (1.5-7.7); ABS Nucleated RBC 0 10^3/ul; Eosinophil % 3.5 %; Hematocrit 30 % (33-41); Lymphocyte % 16.9 %; Mean Corpuscular HGB Conc 30 g/dL (31-36); Mean Corpuscular Hemoglobin 25 pg (27-31); Mean Corpuscular Volume 82 fL (80-97); Nucleated Red Blood Cells % 0.3; Platelet Count 242 10^3/uL (150-450); Red Blood Count 3.62 10^6 /uL (3.70-4.87); Red Cell Distribution Width 20 % (10.5-15); White Blood Count 7.7 10^3/uL (3.5-10.8)
[2018-12-05 06:48] LABS: INR 1.93 (0.77-1.02)
[2018-12-05 07:04] LABS: BUN/Creatinine Ratio 25.9 (8-20); Calcium 8.9 mg/dL (8.6-10.3); EGFR African American 140.3 (>60); Potassium 4.1 mmol/L (3.5-5.0)
[2018-12-05] MEDS: Metoprolol Tartrate TAB* 25 MG PO SCH ×2 (08:55→22:03)
[2018-12-05] MEDS: Famotidine TAB* 20 MG PO SCH ×2 (08:55→22:02)
[2018-12-05] MEDS: Ferrous Gluconate TAB* 324 MG TAB PO SCH ×2 (08:55→22:02)
[2018-12-05] MEDS: Nystatin CREAM* 30 GM TOPICAL SCH ×3 (08:55→22:00)
--- NOTE | 2018-12-05 13:41 | PN ---
Subjective Date of Service: 12/05/18 Interval History: Pt is feeling okay today. She states she is a little tired, because she had interrupted sleep last night. She feels she is ready to go home, but we are awaiting therapeutic INR levels. Pt states that she has had spotting today; denies heavy bleeding. Pt denies CP , SOB, fever cough. She denies abd pain, n/v. She states that she had 1 loose stool earlier today. Denies calf pain. Family History: Unchanged from Admission Social History: Unchanged from Admission Past Medical History: Unchanged from Admission Objective Active Medications: Acetaminophen (Tylenol Tab*) 650 mg PO Q6H PRN Albuterol (Ventolin Hfa Inhaler*) 2 puff INH Q4H PRN Atorvastatin Calcium (Lipitor*) 10 mg PO 1700 [facility] Cyclobenzaprine HCl (Flexeril Tab*) 10 mg PO TID PRN Famotidine (Pepcid Tab*) 20 mg PO BID [facility]; Protocol Ferrous Gluconate (Fergon Tab*) 324 mg PO BID [facility] Gabapentin (Neurontin Cap(*)) 600 mg PO BEDTIME [facility] Heparin Sodium (Porcine) (Heparin Vial(*)) 5,000 units SUBCUT Q8HR [facility] Melatonin (Melatonin) 3 mg PO BEDTIME PRN Metoprolol Tartrate (Lopressor Tab*) 12.5 mg PO Q12HR [facility] Nystatin (Nystatin Cream*) 1 applic TOPICAL TID [facility] Pharmacy Profile Note (Coumadin Daily Reminder*) 1 note FOLLOW UP 1700 [facility] Tramadol HCl (Ultram*) 50 mg PO Q12H PRN Warfarin Sodium (Coumadin Tab(*)) 6 mg PO DAILY@1700 [facility]; Protocol Vital Signs: Temp Pulse Resp BP Pulse Ox 98.8 F 76 16 109/52 92 12/05/18 11:13 12/05/18 11:13 12/05/18 12:22 12/05/18 11:13 12/05/18 11:13 Oxygen Devices in Use Now: None Appearance: Pt is a morbidly obese female who is sitting up in chair resting. She appears to be in no acute distress. Eyes: No Scleral Icterus Ears/Nose/Mouth/Throat: NL Teeth, Lips, Gums, Mucous Membranes Moist Neck: NL Appearance and Movements; NL JVP, Trachea Midline Respiratory: Symmetrical Chest Expansion and Respiratory Effort, Clear to Auscultation Cardiovascular: NL Sounds; No Murmurs; No JVD, RRR, No Edema Abdominal: NL Sounds; No Tenderness; No Distention, - - Obese. Unable to palpate for spleen/liver, due to body habitus. Extremities: No Edema, No Clubbing, Cyanosis Neurological: Alert and Oriented x 3 Result Diagrams: 12/05/18 06:23 12/05/18 06:23 Microbiology and Other Data: Microbiology 11/29/18 13:24 Aerobic Blood Culture - Preliminary Blood Venous No Growth Day 1 Anaerobic Blood Culture - Preliminary No Growth Day 1 11/29/18 13:20 Aerobic Blood Culture - Preliminary Blood Venous No Growth Day 1 Anaerobic Blood Culture - Preliminary No Growth Day 1 11/29/18 13:10 Influenza Types A,B Antigen - Final Nasal Specimen received for Influenza A/B Molecular testing Assess/Plan/Problems-Billing Assessment: Ms. Jain is a 58 yo F with PMH of PE, HTN, and abnormal vaginal bleeding; who presented to the ED with SOB and CP and was found to be anemic. Patient is improving and is being restarted on her coumadin. - Patient Problems (1) Abnormal uterine bleeding Comment: - Spotting today with prior 2 days no AUB. HH stable and trending up. - h/o fibroids, high risk for EM cancer; long h/o AUB with failing to follow up , reports she sees her PCP regulary who was going to send her to drug and alcohol treatment specialist-onc. Pt now states she will f/u and would like to undergo the hysterectomy - Appreciate DIRECTOR EXTERNAL COMMUNICATIONS consult - recommends outpt workup with endometrial biopsy - recommeding high risk surgeon due to her comorbidities; will see pt tomorrow- hopeful discharge tomorrow with therapeutic INR - States she has had 3 endometrial biopsies all of which were negative and refuses another due to pain. - Transvaginal US without any obvious cause - Coumadin restarted with continued observation. Patient refuses to give lovenox injections and cannot be discharged without bridging, will remain inpatient until coumadin therapeutic. (2) Anemia Comment: - Acute on chronic blood loss, secondary to vaginal bleeding - H&H stable - Stool occult negative - Iron panel shows AMARA, continue oral iron (3) Chest pain Comment: - Resolved - Negative trops x3, no EKG changes - Differentials include anemia and respiratory; low suspicion for cardiac cause - Negative stress test in 03/06 and she is unwilling to undergo another stress test which was recommended this hospitalization - Negative CTA. (4) Hyperlipidemia Comment: - LDL 129 - 6.2% risk fo CV event according to ASCVD risk algorithm; recommendation is moderate intensity statin - atorvastatin initiated (5) Pulmonary HTN Comment: - CT and Echo evidence of pHTN - With SOB on exertion - Differential includes LUIS ANTONIO, Obesity Hypoventilation, HFpEF and CTEPH - Given history of PE, evaluation at tertiary pulmonary HTN clinic for evaluation of CTEPH as a reversible cause of pHTN could be considered. - should be referred to Pulmology Dr. Hubbard at discharge (6) Contracture of right Achilles tendon Comment: - S/P Repair now with cast, High risk for DVT. - Follows with Dr. Hodges - missed an appointment last week. She believes the cast was supposed to come off last week. She called and left a message at the office she was in the hospital. She should follow up in the ortho office this week (7) Hx of pulmonary embolus Comment: - No evidence of PE on CTA, but she is at high risk of DVT/PE d/t right leg cast - Coumadin restarted 12/01 and continue to follow INR. - High risk for recurrent PE with recent orthopedic surgery, super morbid obesity and history of PE. Bridge coumadin with DVT prophylaxis dose heparin and monitor for bleeding. (8) Morbid obesity Comment: - BMI 62 - Patient following with bariatric surgeon in [place]. - Surgical plans on hold, per patient until she undergoes a hysterectomy (9) GERD (gastroesophageal reflux disease) Comment: - Continue famotidine (10) DVT prophylaxis Comment: -D/c Heparin today (12/05), as pt almost therapeutic with INR 1.93 (11) Full code status Comment: Status and Disposition: Inpatient. DC home when therapeutic on Coumadin hopefully tomorrow or Wednesday.
[2018-12-05] MEDS: Atorvastatin* 10 MG TAB PO SCH (17:07)
[2018-12-05] MEDS: Warfarin TAB(*) 6 MG PO SCH (17:07)
[2018-12-05] MEDS: Gabapentin CAP(*) 300 MG PO SCH (22:02)
[2018-12-06] MEDS: Nystatin CREAM* 15 GM TUBE TOPICAL SCH ×3 (00:10→14:07)
[2018-12-06 06:31] LABS: Hematocrit 30 % (33-41)
[2018-12-06 06:41] LABS: INR 2.04 (0.77-1.02)
[2018-12-06] MEDS: Metoprolol Tartrate TAB* 25 MG PO SCH (08:06)
[2018-12-06] MEDS: Ferrous Gluconate TAB* 324 MG TAB PO SCH (08:07)
[2018-12-06] MEDS: Famotidine TAB* 20 MG PO SCH (08:08)
--- NOTE | 2018-12-06 10:11 | CONSULT ---
Consult Consult: Checker Cashier Consult follow up. Patient's abnormal uterine bleeding seems to have subsided during admission. Her bleeding pattern is c/w Dysfuntional utyerine bleeding with episodes of oligomenorrhea followed by menorrhagia, most likely due to a combination of anovulatory cycles and obesity. However she still needs endometrial sampling to r/o malignancy. This can be done as an outpatient. Recommendation. If not contraindicated due to dvt/Pe history (check with heme/onc) give Progesterone treatment to induce withdrawal menses and prevent menorrhagia with Provera 10mg for 10 days every 28 days, starting 28 days from when patient started bleeding for this hospitalization. rn long term care plan, Referral to Gynecologic oncologist at tertiary institution for definitive surgery (Hysterectomy) in light of her co-morbidities, anesthesia and presurgical risks factors.
[2018-12-06 13:07] VITALS: BP 110/57
--- NOTE | 2018-12-06 21:15 | DS ---
CC: Dr. Larry Campa; Dr. Hubert Raines * DISCHARGE SUMMARY: DATE OF ADMISSION: 11/29/18 DATE OF DISCHARGE: 12/06/18 PRIMARY CARE PROVIDER: Dr. Larry Campa. FORGING PRESS SETTER UP: Dr. Hubert Raines. ATTENDING PHYSICIAN: Dr. Meg Avalos * (dictated by EDIE Esparza) PRIMARY DIAGNOSES: 1. Abnormal uterine bleeding. 2. Anemia. SECONDARY DIAGNOSES: 1. Hypertension. 2. History of AUB. 3. History of pulmonary embolism. 4. Gastroesophageal reflux disease. 5. Anemia. STUDIES WHILE IN THE HOSPITAL: Chest x-ray on 11/29/18, impression: No active cardiopulmonary disease. Transvaginal ultrasound 11/29/18, impression: Essentially nondiagnostic pelvic ultrasound secondary to factors detailed above. The uterus appears to contain heterogeneous hypoechoic material. Chest CTA 11/29/18, impression: No acute findings. Continued enlargement of main pulmonary artery suggests pulmonary arterial hypertension. Substernal goiter again identified with a low density nodule in the left lobe measuring approximately 3.2 cm x 2.4 cm, narrowing at the trachea at the level of sternal manubrium, unchanged. Resolution of lower lobe infiltrate seen on prior study. Surgical changes of upper abdomen. Other nonemergent findings detailed above. Transthoracic echocardiogram, 11/30/18, conclusion: Mild concentric left ventricular hypertrophy is observed. There is normal left ventricular systolic function. The estimated ejection fraction is 55% to 60%. Abnormal left ventricular diastolic function is observed. The right ventricle is mildly dilated. The right ventricle wall thickness is moderately increased. There is a trace of aortic regurgitation. There is a trace of mitral regurgitation. There is trace tricuspid regurgitation. There is mild dilation of the ascending aorta 3.7 cm. Compared to the prior echo of 12/20/16, EF is stable. RV dilation and hypertrophy are new. RV hypokinesis seen on prior study. Valve function is stable. DISCHARGE MEDICATIONS: Home medications: 1. Warfarin 5.5 mg p.o. daily. 2. Ranitidine 150 mg p.o. b.i.d. 3. Metoprolol tartrate 12.5 mg p.o. q.12 hours. 4. Gabapentin 600 mg p.o. daily. 5. Ferrous gluconate 324 mg p.o. b.i.d. 6. Coricidin HBP cough and cold tab 1 tab p.o. q.6 hours p.r.n. 7. Albuterol HFA inhaler 2 puffs inhalation q.4 hours p.r.n. New home medications: 1. Medroxyprogesterone tab 10 mg p.o. daily x10 days, repeat every 28 days. Start 12/16/18. 2. Nystatin cream 1 application topically t.i.d. p.r.n. 3. Atorvastatin 10 mg p.o. at bedtime. HISTORY OF PRESENT ILLNESS/HOSPITAL COURSE: Ms. Jain is a 58-year-old female with a past medical history as described above and significant for history of pulmonary embolism and abnormal uterine bleeding. She presented to the ER on 12/06/18 with complaints of lightheadedness, chest pain, and shortness of breath. She does note that she has had heavy vaginal bleeding for approximately 2 months that has changed to spotting for the past approximately 2 days. In the ER, she was found to be anemic with an H and H of 7.9 and 26. She was evaluated and admitted by the hospital team. It was suspected that all of these symptoms are related to anemia which related back to her excessive uterine bleeding. Her INR was found to be subtherapeutic , so a CTA was obtained to rule out pulmonary embolism. In the setting of chest pain, the patient's troponins were trended and were 0.00 x3. Echocardiogram was obtained with results as above. Lipid panel was also ordered and revealed elevated triglycerides, cholesterol, LDL and decreased HDL. The patient was started on atorvastatin for this. The patient has an extensive history of abnormal uterine bleeding. She was seen by [facility] [place] in 2016 for this problem. A Mirena was inserted. She was seen again in April 2017 and workup revealed likely uterine fibroid. She was referred to Dr. Edilberto Rodriguez in [place] for surgical treatment which would entail hysterectomy, but was lost to followup. Although she prefers surgical intervention in [place], risk factors prevent this from occurring and it is noted that she must go out of the area to have surgery. The current recommendation by Gynecology is Provera 10 mg for 10 days every 28 days. This will be ordered at discharge. Throughout the patient's hospital stay , it was noted that she was only spotting and that her heavy bleeding had persisted. Her H and H started to trend up. Gynecology continued to recommend an endometrial biopsy as they were concerned for endometrial cancer. The patient denied stating that she has had biopsies in the past and they were all negative and caused her pain. It is of note that the patient's Coumadin was held for the first couple days of admission due to concern for heavy vaginal bleeding. The patient was restarted on her Coumadin with bridging with Lovenox in order to get her to a therapeutic INR. At the time of discharge, the patient's Lovenox was discontinued and her INR was 2.04. Also of note is evidence of pulmonary hypertension on CAT scan and echo. It is recommended that the patient given her history of PE, be evaluated for a tertiary pulmonary hypertension. Primary care should refer the patient to Dr. Hubbard. Finally, the patient is noted to have a cast on the right leg. She follows Dr. Hodges and states that she missed her appointment for cast removal last week, at which point she believes the cast was supposed to come off. The Ortho team was consulted and recommended that the patient follow up with Dr. Hodges's office within in a week to discuss cast removal and further management. On the day of discharge, Ms. Jain denies complaints of chest pain, shortness of breath, fever or cough. She denies abdominal pain, nausea, vomiting, diarrhea or constipation. She states that she has a small amount of spotting but denies heavy bleeding. She denies pain in the calves, although she states that the cast on the right leg is irritating. Ms. Jain is stable for discharge. PHYSICAL EXAMINATION: Vital Signs: Temperature 97.8 temporally, heart rate 68 , respiratory rate 16, oxygen saturation 95% on room air, and blood pressure 110 /57. General: Ms. Jain is a well-developed, well-nourished, morbidly obese white female who is sitting up in her chair with the lower extremities elevated. She is in no acute distress. HEENT: Visual storm are grossly intact. Her pupils are equally round and reactive to light. Extraocular movements are intact. Sclerae are without icterus. Hearing is grossly intact. Oral mucous membranes are moist. There are no lesions. Pharynx is clear. Cardiovascular: Regular rate and rhythm with S1 and S2 present. There are no murmurs, rubs, or gallops. There is no JVD. Respiratory: Symmetrical chest expansion with no use of accessory muscles. Lungs are clear to auscultation. There are no rhonchi, wheezes, or rubs. Abdomen: Bowel sounds in all quadrants. The abdomen is soft and nontender to palpation. There is no hepatosplenomegaly. Extremities: Skin is warm and smooth bilaterally. There is no clubbing or cyanosis. There is no edema. The right lower extremity has an intact cast in place. The toes are protruding from the cast and sensation and capillary refill are within normal limits. Neuro: The patient is awake. She is alert and oriented x3. She moves all of her extremities. DISCHARGE PLAN: Ms. Jain will be discharged to home. ACTIVITY: As tolerated. DIET: Heart healthy. MEDICATIONS: As above. EDUCATION: 1. Follow up with Dr. Hodges, Orthopedics this week for cast removal. You can make an appointment by calling [phone]. 2. Follow up with primary care physician within 1 week to discuss recent hospitalization, referral to Dr. Hubbard for pulmonary hypertension, new medications, consider rechecking INR at this time. 3. Follow up with Gynecology, Dr. Raines on , 12/15/18 at 3 p.m. for referral to General Activities Therapist/Onc. 4. Follow up with Dr. Hubbard regarding evidence of pulmonary hypertension on echo. 5. Follow up with bariatric services in [place] as scheduled. 6. Provera 10 mg sent to pharmacy. Please start 12/16/18 and take for 10 days every 28 days. 7. Continue iron supplementation ferrous gluconate. 8. Continue atorvastatin. 9. Continue Nystatin cream as needed. 10. Return to the ER or nearest hospital if you experience any worsening of symptoms, shortness of breath, lightheadedness, dizziness, chest discomfort, high fevers, chills, night sweats, loss of consciousness, or any other worrisome signs or symptoms. This is a summarized report of a complex medical history and hospital stay. For further details, please see the entire medical record. TIME SPENT: Approximately 40 minutes were spent on this discharge, greater than half that time was spent [id number] with the patient discussing discharge plans and instructions. EDIE JOYNER [id number]/[facility] #: [id number] [facility]ICAL CENTERCosmo
== END 2018-12-06 17:00 | disposition home health service (06) | DRG 532 ==
LOC: ED 12:33 → MEDTELE 17:23 → OBSVTOIN 12-01 12:33
PROVIDERS: ADMIT Internal Medicine; ATTEND Internal Medicine
DX: N93.8 Other specified abnormal uterine and vaginal bleeding (principal); D62 Acute posthemorrhagic anemia; Z68.44 Body mass index [BMI] 60.0-69.9, adult; D64.9 Anemia, unspecified; N91.5 Oligomenorrhea, unspecified; I10 Essential (primary) hypertension; K21.9 Gastro-esophageal reflux disease without esophagitis; I27.21 Secondary pulmonary arterial hypertension; E66.01 Morbid (severe) obesity due to excess calories; I44.7 Left bundle-branch block, unspecified; R79.1 Abnormal coagulation profile; D50.0 Iron deficiency anemia secondary to blood loss (chronic); R07.9 Chest pain, unspecified; E78.5 Hyperlipidemia, unspecified; M62.838 Other muscle spasm; Z98.890 Other specified postprocedural states; Z91.048 Other nonmedicinal substance allergy status; Z79.899 Other long term (current) drug therapy; Z86.711 Personal history of pulmonary embolism; Z79.01 Long term (current) use of anticoagulants; Z98.84 Bariatric surgery status
CPT/HCPCS: 36415; 71046; 71275; 76830; 80048; 80053; 80061; 82272; 82670; 82728; 83001; 83540; 83550; 83605; 83735; 83880; 84443; 84484; 85014; 85018; 85025; 85379; 85610; 85730; 87040; 93005; 93306; 99283; A9270-GY; G0378; J1644; J1756; J3475; Q9967

== ENCOUNTER 2019-01-23 01:39 | Emergency (ER) | payer MEDICAID ==
[2019-01-23] MEDS ORDERED: NS 0.9% 1000 ML** 1,000 ML IV ONE (02:15)
--- NOTE | 2019-01-23 02:26 | ED ---
GI/ HPI - HPI Summary HPI Summary: This patient is a 58 year old F brought to ED via EMS with a chief complaint of vaginal bleeding since three weeks ago, worsening tonight. The patient rates the pain 8/10 in severity. Symptoms aggravated by nothing. Symptoms alleviated by nothing. Patient reports blood clots and lower abdominal cramps. Patient was on the toilet when she felt dizzy and had a near-syncopal episode. Patient does not walk and uses a wheelchair. Patient states she typically gets vaginal bleeding 2-3 times a month. She has seen Dr. Raines, OBGYN last month who found negative US and biopsies. She is scheduled to see another career placement specialist in [place] in 02/03/19. The patient is on medroxyprogesterone and was told to stop on 01/04/[address] Raines but she began bleeding several days later, so she resumed medroxyprogesterone. Patient is also on 5.5mg Coumadin, Metoprolol, Zantac, and Iron. PMHx of anemia, two pulmonary embolisms, angina, DVT, HTN, asthma, GERD, gall bladder disease but no DM CHF, CAD, OR, syncope, COPD, renal disease. PSHx of cardiac cath, tonsillectomy, , right abd hernia repair x3, stomach stapling, and cholecystectomy. FHx cardiac disease and HTN. Patient rarely drinks alcohol, is a former smoker of cigarettes, but does not use drugs. - History of Current Complaint Chief Complaint: EDDizziness Time Seen by Provider: 01/23/19 01:59 Stated Complaint: VAGINAL BLEEDING PER EMS Hx Obtained From: Patient Hx Last Menstrual Period: N/A Onset/Duration: Started Weeks Ago - 3 Timing: Intermittent - Temporary resolution upon cessation of medroxyprogesterone but resumed later Current Severity: Severe Vaginal Bleeding Description: Clots Pain Intensity: 8 Location of Pain: Other - Lower abdominal cramps Pain Characteristics: Cramping Associated Signs and Symptoms: Positive: Dizziness, Syncope - Near-syncope, Abdominal Pain - Lower abdominal cramps Additional Signs & Symptoms: Positive: Vaginal Bleeding Aggravating Factor(s): Nothing Alleviating Factor(s): Nothing - Additional Pertinent History Primary Care Physician: CHARITO - Allergy/Home Medications Allergies/Adverse Reactions: Allergies Allergy/AdvReac Type Severity Reaction Status Date / [facility] Rash Verified 10/10/18 12:28 Perfume [Fragrance] Allergy Unknown Verified 10/10/18 12:28 Reaction Details environmental Allergy Sneezing Uncoded 10/10/18 12:28 PMH/Surg Hx/FS Hx/Imm Hx Endocrine/Hematology History: Reports: Hx Anemia Denies: Hx Diabetes, Hx Unexplained Bleeding Cardiovascular History: Reports: Hx Angina, Hx Deep Vein Thrombosis, Hx Embolism , Hx Hypertension, 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; tricuspid gisele disease, Other Cardiovascular Problems/Disorders - left BBB, chronic edema Denies: Hx Aneurysm, Hx Angioplasty, Hx Auto Implanted Cardiovert Defib, Hx Cardiac Arrest, Hx Cardiomegaly, Hx Congenital Heart Disease, Hx Congestive Heart Failure, Hx Coronary Artery Disease, Hx Hypercholesterolemia, Hx Hypotension, Hx Myocardial Infarction, Hx Pacemaker/ICD, Hx Peripheral Vascular Disease, Hx Rheumatic Fever, Hx Syncope Respiratory History: Reports: Hx Asthma, Hx Pulmonary Embolism, Hx Sleep Apnea, Other Respiratory Problems/Disorders - PE hx 2005 liyah Denies: Hx Chronic Obstructive Pulmonary Disease (COPD) GI History: Reports: Hx Gall Bladder Disease - removed, Hx Gastroesophageal Reflux Disease, Other GI Disorders - stomach stapled History: Denies: Hx Renal Disease Musculoskeletal History: Reports: Hx Arthritis - BOTH KNEES, SHOULDERS, NECK, BACK, HIPS "ALL OVER", Hx Back Problems - L4-5 lami a few months ago, Hx Bursitis - RIGHT SHOULDER, Other Musculoskeletal History - chronic knee pain Sensory History: Reports: Hx Contacts or Glasses Denies: Hx Cataracts, Hx Eye Injury, Hx Eye Prosthesis, Hx Glaucoma, Hx Legally Blind, Hx Macular Degeneration, Hx Vision Problem, Hx Hearing Aid, Other Sensory Impairments Opthamlomology History: Reports: Hx Contacts or Glasses Denies: Hx Cataracts, Hx Eye Injury, Hx Eye Prosthesis, Hx Glaucoma, Hx Legally Blind, Hx Macular Degeneration, Hx Vision Problem, Other Sensory Impairments Neurological History: Denies: Other Neuro Impairments/Disorders Psychiatric History: Denies: Hx Panic Disorder - Cancer History Hx Chemotherapy: No Hx Radiation Therapy: No - Surgical History Surgery Procedure, Year, and Place: CARDIAC CATH, TONSILECTOMY, , RIGHT ABD HERNIA REPAIR X3, STOMACH STAPLING, CHOLECYSTECTOMY. P-05/2017 Hx Anesthesia Reactions: Yes - AT TIMES SLOW TO COME OUT OF ANESTHESIA/ NAUSEA - Immunization History Date of Tetanus Vaccine: Unk Date of Influenza Vaccine: None Infectious Disease History: Yes Infectious Disease History: Reports: Hx of Known/Suspected MRSA Denies: Hx Clostridium Difficile, Hx Hepatitis, Hx Human Immunodeficiency Virus (HIV), Hx Shingles, Hx Tuberculosis, Hx Known/Suspected VRE, Hx Known/ Suspected VRSA, History Other Infectious Disease, Traveled Outside the [place] in Last 30 Days - Family History Known Family History: Positive: Cardiac Disease - father with [place] and in 80's, Hypertension - father - Social History Alcohol Use: Rare Alcohol Amount: a few times a year Hx Substance Use: No Substance Use Type: Reports: None Hx Tobacco Use: Yes Smoking Status (MU): Former Smoker Type: Cigarettes Amount Used/How Often: 1-2 CIGARETTES PER DAY X 1 YEAR Have You Smoked in the Last Year: No Review of Systems Positive: Abdominal Pain - Lower abomdinal cramps Positive: discharge - Vaginal bleeding and clots Neurological: Other - Near-syncope, dizziness All Other Systems Reviewed And Are Negative: Yes Physical Exam - Summary Physical Exam Summary: VITAL SIGNS: Reviewed. GENERAL: Patient is a pale and morbidly obese female who is lying comfortable in the stretcher. Patient is not in any acute respiratory distress. HEAD AND FACE: No signs of trauma. No ecchymosis, hematomas or skull depressions. No sinus tenderness. EYES: PERRLA, EOMI x 2, No injected conjunctiva, no nystagmus. EARS: Hearing grossly intact. Ear canals and tympanic membranes are within normal limits. MOUTH: Oropharynx within normal limits. NECK: Supple, trachea is midline, no adenopathy, no JVD, no carotid bruit, no c- spine tenderness, neck with full ROM CHEST: Symmetric, no tenderness at palpation LUNGS: Clear to auscultation bilaterally. No wheezing or crackles. CVS: Regular rate and rhythm, S1 and S2 present, no murmurs or gallops appreciated. ABDOMEN: Soft, non-tender. No signs of distention. No rebound no guarding, and no masses palpated. Bowel sounds are normal. EXTREMITIES: FROM in all major joints, no edema, no cyanosis or clubbing. NEURO: Alert and oriented x 3. No acute neurological deficits. Speech is normal and follows commands. SKIN: Dry and warm Triage Information Reviewed: Yes Vital Signs On Initial Exam: Initial Vitals Temp Pulse Resp BP Pulse Ox 98.9 F 84 16 143/87 98 01/23/19 01:54 01/23/19 01:54 01/23/19 01:54 01/23/19 01:54 01/23/19 01:54 Vital Signs Reviewed: Yes Diagnostics - Vital Signs Vital Signs Temp Pulse Resp BP Pulse Ox 01/23/19 01:54 98.9 F 84 16 143/87 98 - Laboratory Result Diagrams: 01/23/19 02:57 01/23/19 02:57 Lab Statement: Any lab studies that have been ordered have been reviewed, and results considered in the medical decision making process. - Radiology CXR Radiology Interpretation Completed By: ED Physician Summary of Radiographic Findings: No acute processes. Pending official radiology report. - EKG 0238 Cardiac Rate: NL - 81 BPM EKG Rhythm: Sinus Rhythm EKG Comparison: No Significant Change - Similar to EKG taken 11/29/18 Summary of EKG Findings: Sinus rhythm at 81 BPM. LBBB. Similar to EKG taken 09/07. GIGU Course/Dx - Course Course Of Treatment: This patient is a 58 year old F brought to ED via EMS with a chief complaint of vaginal bleeding since three weeks ago, worsening tonight. During the ED course, patient was given fluids. CXR revealed no acute processes. EKG revealed sinus rhythm at 81 BPM. LBBB. Similar to EKG taken 11/29. Patient H/H has been stable. There is no indication for blood transfusion at this time. Patient has appointment with an OBGYN in [facility] on February 03. Dr. Raines, OBGYN, recommended continuation of Provera 10mg daily. Patient will be discharged home with diagnoses of dysfunctional uterine bleeding and dizziness and a recommendation to move her [place] OBGYN appointment earlier. Patient understands and agrees with this plan. - Diagnoses Differential Diagnoses - Female: Other - Dysfunctional uterine bleeding, dizziness Provider Diagnoses: Dysfunctional uterine bleeding, Dizziness - Physician Notifications Discussed Care Of Patient With: Hubert Raines Time Discussed With Above Provider: 03:43 Instructed by Provider To: Other - Discussed patient case with Dr. Raines, OB/ [facility] who recommends the patient keep taking Provera 10mg daily as there is no indication/reason to increase the daily dose. Discharge - Sign-Out/Discharge Documenting (check all that apply): Patient Departure - Discharge Patient Received Moderate/Deep Sedation with Procedure: No - Discharge Plan Condition: Stable Disposition: HOME Patient Education Materials: Dysfunctional Uterine Bleeding (ED), Dizziness (ED ) Referrals: Laura Villarreal MD [Primary Care Provider] - 3 Days Additional Instructions: Continue Provera (medroxyprogesterone) 10mg daily. Keep your [place] OBGYN appointment and try to make it earlier. Follow-up with your primary care physician in 3 days. PLEASE RETURN TO THE ED IMMEDIATELY FOR WORSENING OR CONCERNING SYMPTOMS. - Attestation Statements Document Initiated by Scribe: Yes Documenting Scribe: Denis Santos Provider For Whom Scribe is Documenting (Include Credential): Juana Fink MD Scribe Attestation: I, Denis Santos, scribed for Juana Fink MD on 01/23/19 at 0419. Status of Scribe Document: Ready
[2019-01-23 03:09] LABS: ABS Basophils 0.1 10^3/ul (0-0.2); ABS Eosinophils 0.4 10^3/ul (0-0.6); ABS Lymphocytes 1.8 10^3/ul (1.0-4.8); ABS Monocytes 0.6 10^3/ul (0-0.8); ABS Neutrophils 6.9 10^3/ul (1.5-7.7); ABS Nucleated RBC 0.1 10^3/ul; Eosinophil % 4.3 %; Hematocrit 31 % (35-47); Hemoglobin 9.5 g/dL (12.0-16.0); Lymphocyte % 18.3 %; Mean Corpuscular HGB Conc 31 g/dL (31-36); Mean Corpuscular Hemoglobin 26 pg (27-31); Mean Corpuscular Volume 84 fL (80-97); Nucleated Red Blood Cells % 0.5; Platelet Count 269 10^3/uL (150-450); Red Blood Count 3.66 10^6 /uL (3.70-4.87); Red Cell Distribution Width 21 % (10.5-15); White Blood Count 9.9 10^3/uL (3.5-10.8)
[2019-01-23 03:21] LABS: Activated Partial Thrombo Time 47.5 seconds (26.0-36.3)
[2019-01-23 03:25] LABS: Albumin 3.6 g/dL (3.2-5.2); Albumin/Globulin Ratio 1.4 (1-3); BUN/Creatinine Ratio 24.1 (8-20); Calcium 8.8 mg/dL (8.6-10.3); EGFR African American 129.2 (>60); EGFR Non-African American 106.8 (>60); Globulin 2.5 g/dL (2-4); Total Bilirubin 0.3 mg/dL (0.2-1.0); Total Protein 6.1 g/dL (6.4-8.9)
[2019-01-23 03:26] LABS: Troponin I 0.01 ng/mL (<0.04)
[2019-01-23 04:36] VITALS: BP 120/70
--- NOTE | 2019-01-23 18:07 | PN ---
Progress Note - Progress Note Date of Service: 01/22/19 Note: Pt. seen in ED for vaginal bleeding. Final CXR read per radiology: IMPRESSION: CARDIOMEGALY WITH PULMONARY VASCULAR CONGESTION. R2 No change in treatment needed.
== END 2019-01-23 05:46 | disposition home or self-care (01) ==
LOC: ED 01:39
DX: N93.8 Other specified abnormal uterine and vaginal bleeding (principal); R42 Dizziness and giddiness; I44.7 Left bundle-branch block, unspecified; E66.01 Morbid (severe) obesity due to excess calories; D64.9 Anemia, unspecified; Z86.718 Personal history of other venous thrombosis and embolism; Z87.891 Personal history of nicotine dependence; I51.7 Cardiomegaly; Z79.01 Long term (current) use of anticoagulants
CPT/HCPCS: 36415; 71045; 80053; 83880; 84484; 85025; 85610; 85730; 86850; 86900; 86901; 93005; 96360; 96361; 99284

== ENCOUNTER 2019-03-29 12:15 | Emergency (ER) | payer MEDICAID ==
[2019-03-29 12:27] VITALS: BP 132/67
--- NOTE | 2019-03-29 13:06 | UC ---
Lower Extremity/Ankle HPI - HPI Summary HPI Summary: 59 yo female injured her right foot a week ago fall pain over dorsum of midfoot - History of Current Complaint Chief Complaint: UCLowerExtremity Stated Complaint: R FOOT PAIN Time Seen by Provider: 03/29/19 12:46 Hx Obtained From: Patient Hx Last Menstrual Period: N/A Onset/Duration: Sudden Onset, Lasting Days Severity Initially: Severe Severity Currently: Severe Pain Intensity: 8 Pain Scale Used: 0-10 Numeric Aggravating Factor(s): Standing Alleviating Factor(s): Rest Able to Bear Weight: Yes - with pain Feet (Multiple View): 1 - tender - Allergies/Home Medications Allergies/Adverse Reactions: Allergies Allergy/AdvReac Type Severity Reaction Status Date / Time buckwheat Allergy Rash Verified 03/29/19 12:27 Perfume [Fragrance] Allergy Unknown Verified 03/29/19 12:27 Reaction Details environmental Allergy Sneezing Uncoded 03/29/19 12:27 PMH/Surg Hx/FS Hx/Imm Hx Previously Healthy: Yes Cardiovascular History: Hypertension Respiratory History: Asthma - Surgical History Surgical History: None Surgery Procedure, Year, and Place: CARDIAC CATH, TONSILECTOMY, , RIGHT ABD HERNIA REPAIR X3, STOMACH STAPLING, CHOLECYSTECTOMY. P-05/2017 - Family History Known Family History: Positive: Cardiac Disease - father with [place] and in 80's, Hypertension - father - Social History Alcohol Use: Rare Alcohol Amount: a few times a year Substance Use Type: None Smoking Status (MU): Former Smoker Type: Cigarettes Amount Used/How Often: 1-2 CIGARETTES PER DAY X 1 YEAR Have You Smoked in the Last Year: No When Did the Patient Quit Smoking/Using Tobacco: 15-20 YEARS AGO - Immunization History Most Recent Influenza Vaccination: 2018 Most Recent Tetanus Shot: 10 years ago Most Recent Pneumonia Vaccination: never Review of Systems All Other Systems Reviewed And Are Negative: Yes Constitutional: Positive: Negative Skin: Positive: Negative Eyes: Positive: Negative ENT: Positive: Negative Respiratory: Positive: Negative Cardiovascular: Positive: Negative Gastrointestinal: Positive: Negative Genitourinary: Positive: Negative Neurovascular: Positive: Negative Musculoskeletal: Positive: Arthralgia Neurological: Positive: Negative Psychological: Positive: Negative Physical Exam Triage Information Reviewed: Yes Appearance: Well-Appearing, No Pain Distress, Well-Nourished Vital Signs: Initial Vital Signs Temp 98 F 03/29/19 12:24 Pulse 78 03/29/19 12:24 Resp 17 03/29/19 12:24 BP 132/67 03/29/19 12:24 Pulse Ox 95 03/29/19 12:24 Vital Signs Reviewed: Yes Eyes: Positive: Conjunctiva Clear ENT: Positive: Hearing grossly normal. Negative: Nasal congestion, Nasal drainage, Trismus, Muffled voice, Hoarse voice, Dental tenderness Neck: Positive: Supple, Nontender, No Lymphadenopathy Respiratory: Positive: Lungs clear, Normal breath sounds, No respiratory distress, No accessory muscle use Cardiovascular: Positive: RRR, No Murmur Musculoskeletal: Positive: Other: - see image Neurological: Positive: Alert Psychological Exam: Normal Skin Exam: Normal Diagnostics - Radiology No standard instances Radiology Interpretation Completed By: Radiologist Summary of Radiographic Findings: no fx, osteoporosis Lower Extremity Course/Dx - Differential Dx/Diagnosis Provider Diagnosis: Right foot sprain Discharge - Sign-Out/Discharge Documenting (check all that apply): Patient Departure All imaging exams completed and their final reports reviewed: Yes - Discharge Plan Condition: Stable Disposition: HOME Patient Education Materials: Foot Sprain (ED) Referrals: Laura Villarreal MD [Primary Care Provider] - 1 Week Additional Instructions: see your MD or orthopedist in 1-2 weeks if not better post op shoe may help - Billing Disposition and Condition Condition: STABLE Disposition: Home
== END 2019-03-29 14:12 | disposition home or self-care (01) ==
LOC: UCEAST 12:15
DX: S93.601A Unspecified sprain of right foot, initial encounter (principal); W19.XXXA Unspecified fall, initial encounter; Y92.9 Unspecified place or not applicable; I10 Essential (primary) hypertension; J45.909 Unspecified asthma, uncomplicated; Z87.891 Personal history of nicotine dependence
CPT/HCPCS: 99212; G0463

== ENCOUNTER 2021-08-20 18:34 | Inpatient (IN) ==
[2021-08-20] MEDS: Lidocaine PATCH 5% PATCH TRANSDERM SCH (21:20)
[2021-08-20] MEDS ORDERED: HYDROmorphone 1 MG/1 ML SYRINGE IV ONE (22:05)
[2021-08-20] MEDS ORDERED: HYDROmorphone 1 MG/1 ML SYRINGE IM ONE (22:25)
[2021-08-21] MEDS: fentaNYL 100 mcg/2 ml 50 MCG/ML VIAL IV SLOW PU PRN ×4 (02:48→16:52)
[2021-08-21 02:52] LABS: ABS Lymphocytes 0.6 10^3/ul (1.0-4.8); ABS Monocytes 0.3 10^3/ul (0-0.8); ABS Neutrophils 7.8 10^3/ul (1.5-7.7); Eosinophil % 0.2 %; Hematocrit 43 % (35-47); Hemoglobin 14.6 g/dL (12.0-16.0); Lymphocyte % 6.8 %; Mean Corpuscular HGB Conc 34 g/dL (31-36); Mean Corpuscular Hemoglobin 30 pg (27-31); Mean Corpuscular Volume 88 fL (80-97); Mean Platelet Volume 9.9 fL (7.4-10.4); Platelet Count 243 10^3/uL (150-450); Red Blood Count 4.87 10^6 /uL (3.70-4.87); Red Cell Distribution Width 16 % (10-15); White Blood Count 8.8 10^3/uL (3.5-10.8)
[2021-08-21] MEDS: Acetaminophen IV 1 GM/100ML 100 ML IV SCH ×4 (02:52→18:34)
[2021-08-21 02:59] LABS: INR 3.01 (0.86-1.15)
[2021-08-21 03:05] LABS: Rapid COVID-19 Molecular Undetected (Undetected)
[2021-08-21 03:08] LABS: C Reactive Protein 16.69 mg/L (<8.01); Calcium 9.5 mg/dL (8.6-10.3); Potassium 4.2 mmol/L (3.5-5.0); eGFR CKD-EPI 105.2 (>60)
[2021-08-21] MEDS ORDERED: Albuterol HFA INHALER 8 gm MDI INH PRN (06:27)
[2021-08-21] MEDS ORDERED: Warfarin per PHARMACY **NOTE FOLLOW UP SCH (07:00)
[2021-08-21] MEDS: Lidocaine PATCH 5% PATCH TRANSDERM SCH (08:16)
[2021-08-21] MEDS: Nystatin TOP POWDER 15 GM BTL TOPICAL SCH ×2 (10:49→19:59)
[2021-08-21] MEDS: Ondansetron 4 mg VIAL 2 MG/ML 2 ml VIAL IV PRN (16:53)
[2021-08-21] MEDS: Warfarin DAILY REMINDER **NOTE FOLLOW UP SCH (17:54)
[2021-08-22 05:22] LABS: ABS Eosinophils 0.2 10^3/ul (0-0.6); ABS Lymphocytes 1.8 10^3/ul (1.0-4.8); ABS Monocytes 0.6 10^3/ul (0-0.8); ABS Neutrophils 4.4 10^3/ul (1.5-7.7); Eosinophil % 2.9 %; Hematocrit 40 % (35-47); Hemoglobin 13.2 g/dL (12.0-16.0); Lymphocyte % 25.7 %; Mean Corpuscular HGB Conc 33 g/dL (31-36); Mean Corpuscular Hemoglobin 29 pg (27-31); Mean Corpuscular Volume 88 fL (80-97); Mean Platelet Volume 9.9 fL (7.4-10.4); Platelet Count 225 10^3/uL (150-450); Red Blood Count 4.51 10^6 /uL (3.70-4.87); Red Cell Distribution Width 16 % (10-15)
[2021-08-22 05:26] LABS: INR 2.83 (0.86-1.15)
[2021-08-22 05:35] LABS: C Reactive Protein 15.29 mg/L (<8.01); Calcium 9.2 mg/dL (8.6-10.3); Potassium 3.7 mmol/L (3.5-5.0); eGFR CKD-EPI 106.1 (>60)
[2021-08-22] MEDS: Nystatin TOP POWDER 15 GM BTL TOPICAL SCH ×2 (09:18→21:46)
[2021-08-22] MEDS: Lidocaine PATCH 5% PATCH TRANSDERM SCH (09:18)
[2021-08-22] MEDS: Ondansetron 4 mg VIAL 2 MG/ML 2 ml VIAL IV PRN (12:44)
[2021-08-22] MEDS: Warfarin DAILY REMINDER **NOTE FOLLOW UP SCH (16:30)
[2021-08-22] MEDS ORDERED: Magnesium Hydroxide LIQ 30 ML UDC PO PRN (16:35)
[2021-08-22] MEDS ORDERED: Senna TAB 8.6 mg TAB PO PRN (16:35)
[2021-08-22] MEDS: fentaNYL 100 mcg/2 ml 50 MCG/ML VIAL IV SLOW PU PRN ×2 (17:39→21:44)
[2021-08-22 19:48] LABS: Body Fluid Source Synovial Fluid
[2021-08-22 20:11] LABS: Body Fluid Appearance Bloody; Body Fluid Color Red
[2021-08-22 21:42] LABS: Body Fluid Mono 7 %; Body Fluid Total Cells Counted 200
[2021-08-22 22:15] LABS: Body Fluid WBC 2930 /mcL
[2021-08-23 08:43] LABS: ABS Eosinophils 0.3 10^3/ul (0-0.6); ABS Lymphocytes 1.4 10^3/ul (1.0-4.8); ABS Monocytes 0.5 10^3/ul (0-0.8); ABS Neutrophils 4.1 10^3/ul (1.5-7.7); Eosinophil % 4.8 %; Hematocrit 41 % (35-47); Hemoglobin 13.5 g/dL (12.0-16.0); Lymphocyte % 22.5 %; Mean Corpuscular HGB Conc 33 g/dL (31-36); Mean Corpuscular Hemoglobin 29 pg (27-31); Mean Corpuscular Volume 88 fL (80-97); Mean Platelet Volume 9.4 fL (7.4-10.4); Platelet Count 212 10^3/uL (150-450); Red Blood Count 4.71 10^6 /uL (3.70-4.87); Red Cell Distribution Width 16 % (10-15); White Blood Count 6.4 10^3/uL (3.5-10.8)
[2021-08-23 08:49] LABS: INR 2.47 (0.86-1.15)
[2021-08-23 08:58] LABS: Calcium 9.1 mg/dL (8.6-10.3); Potassium 3.8 mmol/L (3.5-5.0); eGFR CKD-EPI 103.3 (>60)
[2021-08-23] MEDS: Lidocaine PATCH 5% PATCH TRANSDERM SCH (09:12)
[2021-08-23] MEDS: Nystatin TOP POWDER 15 GM BTL TOPICAL SCH ×2 (09:13→20:26)
[2021-08-23 11:54] LABS: C Reactive Protein 12.22 mg/L (<8.01)
[2021-08-23] MEDS: Warfarin DAILY REMINDER **NOTE FOLLOW UP SCH (16:11)
[2021-08-23] MEDS ORDERED: oxyCODONE/Acetamin 5/325 mg TAB PO PRN ×2 (17:40→17:44)
[2021-08-23] MEDS: fentaNYL 100 mcg/2 ml 50 MCG/ML VIAL IV SLOW PU PRN (20:27)
[2021-08-24] MEDS: Lidocaine Patch REMOVE NOTE PATCH OFF SCH ×2 (00:28→21:12)
[2021-08-24 05:39] LABS: ABS Eosinophils 0.3 10^3/ul (0-0.6); ABS Lymphocytes 1.3 10^3/ul (1.0-4.8); ABS Monocytes 0.6 10^3/ul (0-0.8); ABS Neutrophils 4.4 10^3/ul (1.5-7.7); Eosinophil % 4.6 %; Hematocrit 38 % (35-47); Hemoglobin 12.7 g/dL (12.0-16.0); Lymphocyte % 19.6 %; Mean Corpuscular HGB Conc 33 g/dL (31-36); Mean Corpuscular Hemoglobin 29 pg (27-31); Mean Corpuscular Volume 87 fL (80-97); Mean Platelet Volume 9.4 fL (7.4-10.4); Platelet Count 198 10^3/uL (150-450); Red Blood Count 4.42 10^6 /uL (3.70-4.87); Red Cell Distribution Width 16 % (10-15); White Blood Count 6.6 10^3/uL (3.5-10.8)
[2021-08-24 05:45] LABS: INR 2.63 (0.86-1.15)
[2021-08-24 05:53] LABS: C Reactive Protein 13.77 mg/L (<8.01); Calcium 9.1 mg/dL (8.6-10.3); eGFR CKD-EPI 103.8 (>60)
[2021-08-24] MEDS: Nystatin TOP POWDER 15 GM BTL TOPICAL SCH ×2 (08:05→21:13)
[2021-08-24] MEDS: Lidocaine PATCH 5% PATCH TRANSDERM SCH (08:06)
[2021-08-24] MEDS: CMC:Meloxicam 7.5 mg TAB (NF) PO SCH (08:06)
[2021-08-24] MEDS: fentaNYL 100 mcg/2 ml 50 MCG/ML VIAL IV SLOW PU PRN (09:31)
[2021-08-24] MEDS: Ondansetron 4 mg VIAL 2 MG/ML 2 ml VIAL IV PRN ×2 (14:41→21:12)
[2021-08-24] MEDS: Warfarin DAILY REMINDER **NOTE FOLLOW UP SCH (17:03)
[2021-08-24 17:26] LABS: Vitamin D Total 25(OH) 8.4 ng/mL (20-50)
[2021-08-25 06:32] LABS: INR 2.33 (0.86-1.15)
[2021-08-25] MEDS: Lidocaine PATCH 5% PATCH TRANSDERM SCH (07:54)
[2021-08-25] MEDS: CMC:Meloxicam 7.5 mg TAB (NF) PO SCH (07:56)
[2021-08-25] MEDS: Nystatin TOP POWDER 15 GM BTL TOPICAL SCH (07:57)
[2021-08-25 08:01] VITALS: BP 126/79
[2021-08-25] MEDS ORDERED: Cholecalciferol (VIT D3) 1,000 unit TAB PO SCH (09:00)
== END 2021-08-25 12:10 | disposition home or self-care (01) | DRG 565 ==
LOC: MED 18:34 → ED 18:34 → SUATTDRO 08-21 01:53 → MED 08-21 05:08 → MEDTELE 08-23 20:50 → SUATTDRO 08-24 14:14
PROVIDERS: ADMIT Student in an Organized Health Care Education/Training Program; ATTEND Internal Medicine

== ENCOUNTER 2024-04-02 09:08 | Observation (INO) ==
[2024-04-02 23:08] LABS: ABS Eosinophils 0.2 10^3/uL (0.0-0.5); ABS Lymphocytes 1.1 10^3/uL (1.0-4.8); ABS Monocytes 0.5 10^3/uL (0.0-0.9); ABS Neutrophils 3.2 10^3/uL (1.5-7.6); Eosinophil % 4.2 %; Hematocrit 37.9 % (35-45); Hemoglobin 12.1 g/dL (11.5-14.3); Mean Corpuscular Hemoglobin 26.5 pg (27-33); Mean Corpuscular Volume 82.9 fL (80-97); Mean Platelet Volume 10.5 fL (7.5-11.2); Nucleated Red Blood Cells % 0.1 %/100WBC (0.0-0.8); Platelet Count 164 10^3/uL (150-450); Red Blood Count 4.57 10^6/uL (3.63-4.92); Red Cell Distribution Width 16.7 % (12-17); White Blood Count 5.1 10^3/uL (3.8-11.8)
[2024-04-02 23:14] LABS: INR 3.66 (0.83-1.13)
[2024-04-03 00:14] LABS: Calcium 8.6 mg/dL (8.6-10.3); Creatinine, Serum 0.51 mg/dL (0.51-0.95); Potassium 3.4 mmol/L (3.5-5.0); eGFR CKD-EPI 104.2 (>60)
[2024-04-03] MEDS: Nystatin TOP POWDER 15 GM BTL TOPICAL SCH (00:33)
[2024-04-03] MEDS: Letrozole 2.5 MG TAB (NF) PO SCH (12:39)
[2024-04-03] MEDS ORDERED: Warfarin per PHARMACY **NOTE FOLLOW UP SCH (17:00)
[2024-04-04 06:38] LABS: INR 2.25 (0.83-1.13)
[2024-04-04] MEDS: Polyethylene Glycol 3350 17 GM PACKET PO SCH (09:49)
[2024-04-04] MEDS ORDERED: Warfarin - No Order Today **NOTE FOLLOW UP ONE (17:00)
[2024-04-04] MEDS: Warfarin DAILY REMINDER **NOTE FOLLOW UP SCH (19:29)
[2024-04-05 06:21] LABS: INR 1.79 (0.83-1.13)
[2024-04-06 06:28] LABS: Hematocrit 37.3 % (35-45); Hemoglobin 12.2 g/dL (11.5-14.3)
[2024-04-06 06:34] LABS: INR 1.76 (0.83-1.13)
[2024-04-06 11:31] LABS: Rapid COVID-19 Molecular Undetected (Undetected)
[2024-04-06 16:02] VITALS: BP 116/75
== END 2024-04-06 15:20 ==
LOC: EDHOLD 09:08 → ED 09:08 → SUATTDRO 17:13 → SSU 04-03 08:09 → MED 04-05 22:56
PROVIDERS: ADMIT Hospitalist; ATTEND Student in an Organized Health Care Education/Training Program